=== PATIENT | male | born 1970 | race African-American/Black ===

== ENCOUNTER 2016-10-14 20:54 | Emergency (ER) | payer MEDICARE ==
[2016-10-14 21:30] VITALS: BP 161/88; PULSE 94; TEMP 98.8; BMI 66.5
[2016-10-14] MEDS ORDERED: morphine CARPU-JECT 4 MG/1 ML DISP.SYRIN IVPUSH ONE (23:22)
[2016-10-14] MEDS ORDERED: ONDANSETRON 4 MG/2 ML VIAL IVPB ONE (23:22)
--- NOTE | 2016-10-14 23:22 | PDOC ---
History of Present Illness - General Chief Complaint: Pain Stated Complaint: PAIN Time Seen by Provider: 10/14/16 23:10 - History of Present Illness Initial Comments: 10/15/16 01:04 Patient is a 45-year-old male past medical history of morbid obesity, HTN, HLD, COPD, IDDM, who presents to the emergency department today complaining of abdominal pain. Patient states that around 6 PM he experienced sharp pain in his groin that wraps around to his back. He rates the pain a 10 out of 10. Nothing makes the pain better or worse. Has not taken any pain medication. Admits to nausea but denies vomiting, diarrhea and constipation. Denies chest pain, shortness of breath, cough, fever, chills, dysuria, hematuria, frequency and urgency. Past History - Travel Traveled outside of the country in the last 30 days: No Close contact w/someone who was outside of country & ill: No - Past Medical History Allergies/Adverse Reactions: Allergies Allergy/AdvReac Type Severity Reaction Status Date / Time No Known Allergies Allergy Verified 10/14/16 21:30 Home Medications: Ambulatory Orders Aspirin [ASA -] 81 mg PO DAILY #30 tab.chew 12/19/13 Metformin HCl [Metformin HCl ER] 1,000 mg PO BID #60 tab.er.24 12/19/13 Ascorbate Calcium [Vitamin C] 500 mg PO BID 06/09/14 Ferrous Sulfate [Feosol] 325 mg PO TID 06/09/14 Furosemide [Lasix -] 60 mg PO DAILY 06/09/14 Gabapentin 300 mg PO TID 06/09/14 Insulin Lispro Protamin/Lispro [Humalog Mix 75-25 Kwikpen] 55 unit SQ AM Insulin NPL/Insulin Lispro [Humalog Mix 75-25 Vial] 25 unit SQ HS 06/09/14 Omeprazole [Prilosec (RX)] 20 mg PO DAILY 06/09/14 Rosuvastatin Calcium [Crestor] 5 mg PO DAILY 06/09/14 Acetaminophen [Tylenol .Regular Strength -] 650 mg PO Q4H PRN #0 tablet Budesonide/Formeterol Fumarate [SYMBICORT 160/4.5mcg -] 1 puff IH BID inhaler 05/22/15 Doxycycline Hyclate [Vibramycin -] 100 mg PO BID@1000,1800 capsule 05/22/15 Enoxaparin [Lovenox -] 40 mg SQ DAILY disp.syrin 05/22/15 Guaifenesin Dm [Robitussin Dm -] 10 ml PO Q4H PRN #0 cup 05/22/15 Hydrochlorothiazide [Hctz -] 25 mg PO DAILY #0 tablet 05/22/15 Nifedipine ER [Procardia XL -] 60 mg PO DAILY tab.er.24 05/22/15 Nifedipine ER [Procardia XL -] 90 mg PO DAILY tab.er.24 05/22/15 Prednisone [Deltasone -] 40 mg PO DAILY tablet 05/22/15 Tiotropium Pryor [Spiriva] 1 puff IH DAILY inh 05/22/15 Valsartan [Diovan] 320 mg PO DAILY #0 tablet 05/22/15 Ibuprofen 800 mg PO TID #30 tablet 12/20/15 Methocarbamol [Robaxin -] 750 mg PO BID #20 tablet 12/20/15 Oxycodone HCl/Acetaminophen [Percocet 5-325 mg Tablet] 1 - 2 tab PO Q6H #20 tablet MDD 4 12/20/15 Ibuprofen 800 mg PO TID #20 tablet 10/15/16 Ondansetron [Zofran -] 4 mg PO BID PRN #10 tablet 10/15/16 Oxycodone HCl/Acetaminophen [Percocet 10-325 mg Tablet] 1 each PO Q6H PRN #12 tablet MDD 4 10/15/16 Sulfamethoxazole/Trimethoprim [Bactrim Ds -] 1 tab PO BID #14 tablet 10/15/16 Tamsulosin HCl [Flomax -] 0.4 mg PO DAILY #5 capsule 10/15/16 Anemia: Yes Asthma: Yes Cancer: No Cardiac Disorders: Yes CVA: No COPD: Yes CHF: Yes Dementia: No Diabetes: Yes GI Disorders: Yes (OBESITY) Disorders: No HTN: Yes Hypercholesterolemia: Yes Liver Disease: No Suicide Attempt (Hx): No Seizures: No Thyroid Disease: No - Surgical History Abdominal Surgery: No Appendectomy: No Cardiac Surgery: No Cholecystectomy: No Lung Surgery: No Neurologic Surgery: No Orthopedic Surgery: Yes (bilateral knee arthroscopy) - Psycho/Social/Smoking Cessation Hx Anxiety: No Suicidal Ideation: No Smoking Status: No Smoking History: Never smoked Have you smoked in the past 12 months: No Number of Cigarettes Smoked Daily: 0 If you are a former smoker, when did you quit?: 1998 Information on smoking cessation initiated: No Hx Alcohol Use: No Drug/Substance Use Hx: No Substance Use Type: None Hx Substance Use Treatment: No Review of Systems - Review of Systems Able to Perform ROS?: Yes Comments:: 10/15/16 01:04 CONSTITUTIONAL: Absent: fever, chills, diaphoresis, generalized weakness, malaise, loss of appetite HEENT: Absent: rhinorrhea, nasal congestion, throat pain, throat swelling, difficulty swallowing, mouth swelling, ear pain, eye pain, visual Changes CARDIOVASCULAR: Absent: chest pain, loss of consciousness, palpitations, irregular heart rate, peripheral edema RESPIRATORY: Absent: cough, shortness of breath, dyspnea with exertion, orthopnea, wheezing, stridor, hemoptysis GASTROINTESTINAL: Absent: abdominal pain, abdominal distension, nausea, vomiting, diarrhea, constipation, melena, hematochezia GENITOURINARY: L flank pain that radiates to the groin. Absent: dysuria, frequency, urgency, hesitancy, hematuria, genital pain MUSCULOSKELETAL: Absent: myalgia, arthralgia, joint swelling SKIN: Absent: rash, itching, pallor HEMATOLOGIC/IMMUNOLOGIC: Absent: easy bleeding, easy bruising, lymphadenopathy, frequent infections ENDOCRINE: Absent: unexplained weight gain, unexplained weight loss, heat intolerance, cold intolerance NEUROLOGIC: Absent: headache, focal weakness or paresthesias, dizziness, unsteady gait, seizure, mental status changes, bladder or bowel incontinence PSYCHIATRIC: Absent: anxiety, depression, suicidal or homicidal ideation, hallucinations. Is the patient limited Serbian proficient: No *Physical Exam - Vital Signs Last Vital Signs Temp Pulse Resp BP Pulse Ox 98.8 F 94 H 17 161/88 90 L 10/14/16 21:27 10/14/16 21:27 10/14/16 21:27 10/14/16 21:27 10/14/16 21:27 - Physical Exam Comments: 10/15/16 01:04 GENERAL: Well developed, well nourished, morbidly obese. Awake and alert. Mild distress d /t pain. HEENT: Normocephalic, atraumatic. PERRLA, EOMI. No conjunctival pallor. Sclera are non- icteric. Moist mucous membranes. Oropharynx is clear. NECK: Supple. Full ROM. No JVD. Carotid pulses 2+ and symmetric, without bruits. No thyromegaly. No lymphadenopathy. CARDIOVASCULAR: Distant heart sounds. Regular rate and rhythm. No murmurs, rubs, or gallops. Distal pulses are 2+ and symmetric. PULMONARY: Distant lung sounds. No evidence of respiratory distress. Lungs clear to auscultation bilaterally. No wheezing, rales or rhonchi. ABDOMINAL: Soft. Non-tender. Non-distended. No rebound or guarding. No organomegaly. Normoactive bowel sounds. MUSCULOSKELETAL (+) CVA tenderness on the L. Normal range of motion at all joints. No bony deformities or tenderness. EXTREMITIES: No cyanosis. No clubbing. No edema. No calf tenderness. SKIN: Warm and dry. Normal capillary refill. No rashes. No jaundice. NEUROLOGICAL: Alert, awake, appropriate. Cranial nerves 2-12 intact. No deficits to light touch and temperature in face, upper extremities and lower extremities. No motor deficits in the in face, upper extremities and lower extremities. Normoreflexic in the upper and lower extremities. Normal speech. Toes are down- going bilaterally. Gait is normal without ataxia. PSYCHIATRIC: Cooperative. Good eye contact. Appropriate mood and affect. ED Treatment Course - LABORATORY CBC & Chemistry Diagram: 10/15/16 00:53 10/15/16 02:34 Medical Decision Making - Medical Decision Making 10/15/16 01:45 Patient is a 45-year-old male past medical history of morbid obesity, HTN, HLD, COPD, IDDM, who presents to the emergency department today complaining of abdominal pain. Given physical exam and presenting symptoms most likely kidney stones. Possible diverticulitis. 1. CBC, CMP, PT/INR, Trop UA, UC 2. Spiral CT abdomen 3. Morphine and zofran for pain 4. re-evaluate 10/15/16 02:13 CAT scan calls to state that patient is to large to fit in the CAT scan machine. We will switch order to kidney ultrasound to rule out stones, hydronephrosis. 10/15/16 03:29 Ultrasound shows normal kidneys with no hydronephrosis or stones noted. UA shows hylain casts, 2+ protein, 1+ blood. Possible kidney stone. 10/15/16 03:58 Pt. reports feeling much better after the morphine and zofran. Give relief of symptoms and UA findings will clinically diagnose kidney stone at this time. Pt sent home with PO pain control, antibiotics to prevent infection, and flomax. Pt. understands all discharge instructions and all questions were answered at this time. Pt. understands that he is to f/u with his PCP and urology. *DC/Admit/Observation/Transfer Diagnosis at time of Disposition: Kidney stone, Morbid obesity Diabetes Qualifiers: Diabetes mellitus type: type 2 Diabetes mellitus complication status: with hyperglycemia Diabetes mellitus intermodal dispatcher insulin use: with usp use Qualified Code(s): E11.65 - Type 2 diabetes mellitus with hyperglycemia Hypertension Qualifiers: Hypertension type: unspecified Qualified Code(s): I10 - Essential (primary) hypertension - Discharge Dispostion Disposition: HOME Condition at time of disposition: Improved Admit: No - Prescriptions Prescriptions: Sulfamethoxazole/Trimethoprim [Bactrim Ds -] 1 tab PO BID #14 tablet Tamsulosin HCl [Flomax -] 0.4 mg PO DAILY #5 capsule Ibuprofen 800 mg PO TID #20 tablet Oxycodone HCl/Acetaminophen [Percocet 10-325 mg Tablet] 1 each PO Q6H PRN #12 tablet MDD 4 PRN Reason: Severe Pain Ondansetron [Zofran -] 4 mg PO BID PRN #10 tablet PRN Reason: Nausea - Referrals Referrals: Sukumar Ortiz MD [Primary Care Provider] - Ori Locke MD [Staff Physician] - - Patient Instructions Printed Discharge Instructions: DI for Kidney Stones Additional Instructions: Your ultrasound was normal today. Given your symptoms and amount of pain you are in, it is most likely that you have a kidney stone. Your prescribed antibiotics as prophylaxis for UTI.. Take the prescription as prescribed and take the entire dose even if you feel better. Your prescribed Percocet as needed for severe pain and zofran as needed for nausea.. You were also prescribed ibuprofen and tamsulosin. Take these medications as prescribed. Drink plenty of fluids and get plenty of rest. Follow up with your primary care doctor and Dr. Locke (Urology). Return to the ED if you have worsening pain, fevers, chills, nauesa, vomiting or any changes in your symptoms.
[2016-10-14] MEDS ORDERED: morphine CARPU-JECT 4 MG/1 ML DISP.SYRIN ONE (23:46)
[2016-10-14] MEDS ORDERED: ONDANSETRON 4 MG/2 ML VIAL ONE (23:47)
[2016-10-15] MEDS ORDERED: morphine CARPU-JECT 2 MG/1 ML DISP.SYRIN IM ONE ×3 (00:27→03:35)
[2016-10-15] MEDS ORDERED: morphine CARPU-JECT 4 MG/1 ML DISP.SYRIN ONE ×2 (00:36→04:17)
[2016-10-15] MEDS ORDERED: ONDANSETRON *ODT* 4 MG TABLET ONE (00:44)
[2016-10-15] MEDS ORDERED: ONDANSETRON *ODT* 4 MG TABLET SL ONE (00:45)
[2016-10-15 00:50] LABS: INR 0.97 (0.82-1.09); PROTHROMBIN TIME (PATIENT) 10.7 SEC (9.98-11.88)
[2016-10-15 01:01] LABS: BASOPHIL 0.2 % (0-2.0); EOSINOPHIL 0.9 % (0-4.5); MCH 28.4 pg (25.7-33.7); MCHC 31.7 g/dl (32.0-35.9); MEAN CELL VOLUME 89.6 fl (80-96); MEAN PLT VOLUME 8.7 fl (7.5-11.1); PLATELET COUNT 283 K/MM3 (134-434); RDW 14.2 % (11.9-15.9); WHITE BLOOD COUNT 10.7 K/mm3 (4.0-10.0)
[2016-10-15 01:14] LABS: URINE APPEARANCE CLEAR; URINE BILIRUBIN NEGATIVE (NEGATIVE); URINE BLOOD 1+ (NEGATIVE); URINE COLOR YELLOW; URINE GLUCOSE (UA) 1+ (NEGATIVE); URINE KETONE NEGATIVE (NEGATIVE); URINE LEUK ESTERASE NEGATIVE (NEGATIVE); URINE NITRITE NEGATIVE (NEGATIVE); URINE UROBILINOGEN 4.0 E.U/dl mg/dL (0.2-1.0)
[2016-10-15 01:16] LABS: URINE PROTEIN 2+ (NEGATIVE)
[2016-10-15 01:21] LABS: URINE BACTERIA RARE /hpf (NONE SEEN); URINE HYALINE CAST 3 /lpf; URINE MUCUS RARE; URINE RBC 5 /hpf (0-3); URINE WBC 1 /hpf (3-5)
--- NOTE | 2016-10-15 01:46 | PDOC ---
*Physical Exam - Vital Signs Last Vital Signs Temp Pulse Resp BP Pulse Ox 98.8 F 94 H 17 161/88 97 10/14/16 21:27 10/14/16 21:27 10/14/16 21:27 10/14/16 21:27 10/15/16 01:00 ED Treatment Course - LABORATORY CBC & Chemistry Diagram: 10/15/16 00:53 10/15/16 02:34 - ADDITIONAL ORDERS Additional order review: Laboratory Results 10/15/16 10/15/16 10/15/16 01:04 00:53 00:20 INR 0.97 Sodium Cancelled Potassium Cancelled Chloride Cancelled Carbon Dioxide Cancelled Anion Gap Cancelled BUN Cancelled Creatinine Cancelled Creat Clearance w eGFR Cancelled Random Glucose Cancelled Calcium Cancelled Total Bilirubin Cancelled AST Cancelled ALT Cancelled Alkaline Phosphatase Cancelled Total Protein Cancelled Albumin Cancelled Lipase Cancelled Urine Color Yellow Urine Appearance Clear Urine pH 5.0 Urine Protein 2+ H Urine Glucose (UA) 1+ H Urine Ketones Negative Urine Blood 1+ H Urine Nitrite Negative Urine Bilirubin Negative Urine Urobilinogen 4.0 e.u/dl Ur Leukocyte Esterase Negative Urine RBC 5 Urine WBC 1 Ur Epithelial Cells Rare Urine Bacteria Rare Hyaline Casts 3 Urine Mucus Rare 10/15/16 00:53 RBC 4.70 MCV 89.6 MCHC 31.7 L RDW 14.2 D MPV 8.7 Neutrophils % 82.0 Lymphocytes % 11.7 D Monocytes % 5.2 D Eosinophils % 0.9 D Basophils % 0.2 - Medications Given in the ED: ED Medications Discontinued Medications Generic Name Dose Route Start Last Admin Trade Name Chris PRN Reason Stop Dose Admin Morphine Sulfate 6 mg 10/14/16 23:22 10/15/16 00:43 Morphine Injection - IVPUSH 10/14/16 23:23 Not Given ONCE ONE Morphine Sulfate 8 mg 10/15/16 00:28 10/15/16 00:30 Morphine Injection - IM 10/15/16 00:29 8 mg ONCE ONE Administration Ondansetron HCl 4 mg 10/14/16 23:22 10/15/16 01:09 Zofran Injection IVPB 10/14/16 23:23 Not Given ONCE ONE Ondansetron HCl 4 mg 10/15/16 00:45 10/15/16 00:45 Zofran Odt - SL 10/15/16 00:46 4 mg ONCE ONE Administration Medical Decision Making - Medical Decision Making 10/15/16 01:44 agree with care from RACHAEL Betts Pt will be treated for kidney stone as pt has hylaine casts in the UA and it was difficult to visualize a stone due to pt habitus. Pt does have h/o DM *DC/Admit/Observation/Transfer Diagnosis at time of Disposition: Kidney stone, Morbid obesity, Diabetes, Hypertension - Discharge Dispostion Disposition: HOME Condition at time of disposition: Improved - Prescriptions Prescriptions: Sulfamethoxazole/Trimethoprim [Bactrim Ds -] 1 tab PO BID #14 tablet Tamsulosin HCl [Flomax -] 0.4 mg PO DAILY #5 capsule Ibuprofen 800 mg PO TID #20 tablet Oxycodone HCl/Acetaminophen [Percocet 10-325 mg Tablet] 1 each PO Q6H PRN #12 tablet MDD 4 PRN Reason: Severe Pain Ondansetron [Zofran -] 4 mg PO BID PRN #10 tablet PRN Reason: Nausea - Referrals Referrals: Ori Locke MD [Staff Physician] - Sukumar Ortiz MD [Primary Care Provider] - - Patient Instructions Printed Discharge Instructions: DI for Kidney Stones Additional Instructions: Your ultrasound was normal today. Given your symptoms and amount of pain you are in, it is most likely that you have a kidney stone. Your prescribed antibiotics as prophylaxis for UTI.. Take the prescription as prescribed and take the entire dose even if you feel better. Your prescribed Percocet as needed for severe pain and zofran as needed for nausea.. You were also prescribed ibuprofen and tamsulosin. Take these medications as prescribed. Drink plenty of fluids and get plenty of rest. Follow up with your primary care doctor and Dr. Locke (Urology). Return to the ED if you have worsening pain, fevers, chills, nauesa, vomiting or any changes in your symptoms.
[2016-10-15 03:13] LABS: ALBUMIN 3.6 g/dl (3.4-5.0); ANION GAP 8 (8-16); BILIRUBIN,TOTAL 0.7 mg/dL (0.2-1.0); CO2 30 mmol/L (21-32); GLUCOSE,RANDOM 167 mg/dL (74-106); SGPT/ALT 17 U/L (12-78); TOT PROT 7.4 g/dl (6.4-8.2)
[2016-10-15 03:14] LABS: ALK PHOS 113 U/L (45-117)
[2016-10-15 03:22] LABS: SGOT/AST 18 U/L (15-37)
== END 2016-10-15 04:24 | disposition home or self-care (01) ==
LOC: JER 20:54
PROC: 3E023NZ Introduction of Analgesics, Hypnotics, Sedatives into Muscle, Percutaneous Approach (ICD-10-PCS; principal; 2016-10-14)
PROC: 3E023NZ Introduction of Analgesics, Hypnotics, Sedatives into Muscle, Percutaneous Approach (ICD-10-PCS; 2016-10-14)
DX: N20.0 Calculus of kidney (principal); E11.65 Type 2 diabetes mellitus with hyperglycemia; Z79.4 Long term (current) use of insulin; I10 Essential (primary) hypertension; D64.9 Anemia, unspecified; J45.909 Unspecified asthma, uncomplicated; J44.9 Chronic obstructive pulmonary disease, unspecified; I50.9 Heart failure, unspecified; E78.00 Pure hypercholesterolemia, unspecified; E66.01 Morbid (severe) obesity due to excess calories; Z68.44 Body mass index [BMI] 60.0-69.9, adult
CPT/HCPCS: 36415; 76775-TC; 80053; 81003; 81015; 85025; 85610; 96372; 99282-25

== ENCOUNTER 2016-10-17 21:22 | Inpatient (IN) | payer MEDICARE, OTHER ==
[2016-10-17] MEDS ORDERED: SODIUM CHLORIDE 0.9% 500 ML INFUS.BAG IV ONE (21:41)
--- NOTE | 2016-10-17 21:41 | PDOC ---
History of Present Illness - General History Source: Patient, EMS Exam Limitations: No Limitations - History of Present Illness Initial Comments: 10/17/16 22:11 The patient is a 45 year old obese male with a significant past medical history of diabetes, HTN, HLD and COPD who presents to the ED, via EMS, s/p loss of consciousness earlier today. The patient reports he was at home taking care of his nieces when he stood up from his chair and had a loss of consciousness. Patient does not fully recall the episode. He also reports multiple episodes of nonbilious vomiting throughout the day. EMS states patients blood sugar was 216 en route. Patient was recently seen in the ED on 10/14/16 and treated for a kidney stone. Denies fevers. Denies chest pain or shortness of breath. Denies abdominal pain or diarrhea. Denies headache. Denies focal numbness, weakness, or tingling. Denies any other symptoms. <Kathie Rodriguez - Last Filed: 10/17/16 23:29> <Keli Crespo - Last Filed: 10/18/16 01:53> - General Chief Complaint: Syncope/Near Syncope Stated Complaint: SYNCOPE,ALTERED MENTAL STATUS Time Seen by Provider: 10/17/16 21:37 Past History <Kathie Rodriguez - Last Filed: 10/17/16 23:29> - Past Medical History Anemia: Yes Asthma: Yes Cancer: No Cardiac Disorders: Yes CVA: No COPD: Yes CHF: Yes Dementia: No Diabetes: Yes GI Disorders: Yes (OBESITY) Disorders: No HTN: Yes Hypercholesterolemia: Yes Liver Disease: No Suicide Attempt (Hx): No Seizures: No Thyroid Disease: No - Surgical History Abdominal Surgery: No Appendectomy: No Cardiac Surgery: No Cholecystectomy: No Lung Surgery: No Neurologic Surgery: No Orthopedic Surgery: Yes (bilateral knee arthroscopy) - Immunization History Immunization Up to Date: Yes - Psycho/Social/Smoking Cessation Hx Anxiety: No Suicidal Ideation: No Smoking Status: No Smoking History: Never smoked Have you smoked in the past 12 months: No Number of Cigarettes Smoked Daily: 0 If you are a former smoker, when did you quit?: 1998 Information on smoking cessation initiated: No Hx Alcohol Use: No Drug/Substance Use Hx: No Substance Use Type: None Hx Substance Use Treatment: No <Keli Crespo - Last Filed: 10/18/16 01:53> - Past Medical History Allergies/Adverse Reactions: Allergies Allergy/AdvReac Type Severity Reaction Status Date / Time No Known Allergies Allergy Verified 10/17/16 21:38 Home Medications: Ambulatory Orders Aspirin [ASA -] 81 mg PO DAILY #30 tab.chew 12/19/13 Metformin HCl [Metformin HCl ER] 1,000 mg PO BID #60 tab.er.24 12/19/13 Ascorbate Calcium [Vitamin C] 500 mg PO BID 06/09/14 Ferrous Sulfate [Feosol] 325 mg PO TID 06/09/14 Furosemide [Lasix -] 60 mg PO DAILY 06/09/14 Gabapentin 300 mg PO TID 06/09/14 Insulin Lispro Protamin/Lispro [Humalog Mix 75-25 Kwikpen] 55 unit SQ AM Insulin NPL/Insulin Lispro [Humalog Mix 75-25 Vial] 25 unit SQ HS 06/09/14 Omeprazole [Prilosec (RX)] 20 mg PO DAILY 06/09/14 Rosuvastatin Calcium [Crestor] 5 mg PO DAILY 06/09/14 Acetaminophen [Tylenol .Regular Strength -] 650 mg PO Q4H PRN #0 tablet Budesonide/Formeterol Fumarate [SYMBICORT 160/4.5mcg -] 1 puff IH BID inhaler 05/22/15 Doxycycline Hyclate [Vibramycin -] 100 mg PO BID@1000,1800 capsule 05/22/15 Enoxaparin [Lovenox -] 40 mg SQ DAILY disp.syrin 05/22/15 Guaifenesin Dm [Robitussin Dm -] 10 ml PO Q4H PRN #0 cup 05/22/15 Hydrochlorothiazide [Hctz -] 25 mg PO DAILY #0 tablet 05/22/15 Nifedipine ER [Procardia XL -] 60 mg PO DAILY tab.er.24 05/22/15 Nifedipine ER [Procardia XL -] 90 mg PO DAILY tab.er.24 05/22/15 Prednisone [Deltasone -] 40 mg PO DAILY tablet 05/22/15 Tiotropium [place] [Spiriva] 1 puff IH DAILY inh 05/22/15 Valsartan [Diovan] 320 mg PO DAILY #0 tablet 05/22/15 Ibuprofen 800 mg PO TID #30 tablet 12/20/15 Methocarbamol [Robaxin -] 750 mg PO BID #20 tablet 12/20/15 Oxycodone HCl/Acetaminophen [Percocet 5-325 mg Tablet] 1 - 2 tab PO Q6H #20 tablet MDD 4 12/20/15 Ibuprofen 800 mg PO TID #20 tablet 10/15/16 Ondansetron [Zofran -] 4 mg PO BID PRN #10 tablet 10/15/16 Oxycodone HCl/Acetaminophen [Percocet 10-325 mg Tablet] 1 each PO Q6H PRN #12 tablet MDD 4 10/15/16 Sulfamethoxazole/Trimethoprim [Bactrim Ds -] 1 tab PO BID #14 tablet 10/15/16 Tamsulosin HCl [Flomax -] 0.4 mg PO DAILY #5 capsule 10/15/16 Review of Systems - Review of Systems Able to Perform ROS?: Yes Comments:: 10/17/16 22:12 CONSTITUTIONAL: Absent: fever, chills, diaphoresis, generalized weakness, malaise, loss of appetite HEENT: Absent: rhinorrhea, nasal congestion, throat pain, throat swelling, difficulty swallowing, mouth swelling, ear pain, eye pain, visual Changes CARDIOVASCULAR: Absent: chest pain, syncope, palpitations, irregular heart rate, lightheadedness , peripheral edema RESPIRATORY: Absent: cough, shortness of breath, dyspnea with exertion, orthopnea, wheezing, stridor, hemoptysis GASTROINTESTINAL: + vomiting Absent: abdominal pain, abdominal distension, diarrhea, constipation, melena, hematochezia GENITOURINARY: Absent: dysuria, frequency, urgency, hesitancy, hematuria, flank pain, genital pain MUSCULOSKELETAL: Absent: myalgia, arthralgia, joint swelling SKIN: Absent: rash, itching, pallor HEMATOLOGIC/IMMUNOLOGIC: Absent: easy bleeding, easy bruising, lymphadenopathy, frequent infections ENDOCRINE: Absent: unexplained weight gain, unexplained weight loss, heat intolerance, cold intolerance NEUROLOGIC: + loss of consciousness Absent: headache, focal weakness or paresthesias, dizziness, unsteady gait, seizure, mental status changes, bladder or bowel incontinence PSYCHIATRIC: Absent: anxiety, depression, suicidal or homicidal ideation, hallucinations. All Other Systems: Reviewed and Negative <Kathie Rodriguez - Last Filed: 10/17/16 23:29> *Physical Exam - Vital Signs Last Vital Signs Temp Pulse Resp BP Pulse Ox 98.9 F 114 H 19 147/101 98 10/17/16 21:35 10/17/16 21:35 10/17/16 21:35 10/17/16 21:35 10/17/16 21:35 - Physical Exam Comments: 10/17/16 22:13 GENERAL:+ cannot move secondary to morbid obesity Awake and alert. No acute distress. HEENT: Normocephalic, atraumatic. PERRLA, EOMI. No conjunctival pallor. Sclera are non- icteric. Moist mucous membranes. Oropharynx is clear. NECK: Supple. Full ROM. No JVD. Carotid pulses 2+ and symmetric, without bruits. No thyromegaly. NCo lymphadenopathy. CARDIOVASCULAR: Regular rate and rhythm. No murmurs, rubs, or gallops. Distal pulses are 2+ and symmetric. PULMONARY: No evidence of respiratory distress. Lungs clear to auscultation bilaterally. No wheezing, rales or rhonchi. ABDOMINAL: Soft. Non-tender. Non-distended. No rebound or guarding. No organomegaly. Normoactive bowel sounds. MUSCULOSKELETAL Normal range of motion at all joints. No bony deformities or tenderness. No CVA tenderness. EXTREMITIES: No cyanosis. No clubbing. No edema. No calf tenderness. SKIN: Warm and dry. Normal capillary refill. No rashes. No jaundice. NEUROLOGICAL: Alert, awake, appropriate. Cranial nerves 2-12 intact. No deficits to light touch and temperature in face, upper extremities and lower extremities. No motor deficits in the in face, upper extremities and lower extremities. Normoreflexic in the upper and lower extremities. Normal speech. Toes are down- going bilaterally. PSYCHIATRIC: Cooperative. Good eye contact. Appropriate mood and affect. <Kathie Rodriguez - Last Filed: 10/17/16 23:29> - Vital Signs Last Vital Signs Temp Pulse Resp BP Pulse Ox 98.9 F 114 H 19 147/101 98 10/17/16 21:35 10/17/16 21:35 10/17/16 21:35 10/17/16 21:35 10/17/16 21:35 <Keli Crespo - Last Filed: 10/18/16 01:53> ED Treatment Course - LABORATORY CBC & Chemistry Diagram: 10/17/16 21:34 10/17/16 21:34 - ADDITIONAL ORDERS Additional order review: Laboratory Results 10/17/16 10/17/16 10/17/16 21:40 21:34 21:34 INR 0.94 Sodium 132 L Potassium 5.6 H Chloride 97 L Carbon Dioxide 27 Anion Gap 8 BUN 61 H D Creatinine 5.8 H D Creat Clearance w eGFR 10.53 POC Glucometer [phone] Random Glucose 280 H D Calcium 8.1 L Total Bilirubin 0.4 D AST 18 ALT 19 Alkaline Phosphatase 111 Creatine Kinase 899 H Troponin I 0.12 H D Total Protein 7.4 Albumin 3.7 10/17/16 21:40 POC Glucometer [phone] - Medications Given in the ED: ED Medications Discontinued Medications Generic Name Dose Route Start Last Admin Trade Name Freq PRN Reason Stop Dose Admin Sodium Chloride 1,000 ml 10/17/16 21:41 10/17/16 21:56 Normal Saline - IV 10/17/16 21:42 1,000 ml ONCE ONE Administration <Kathie Rodriguez - Last Filed: 10/17/16 23:29> - LABORATORY CBC & Chemistry Diagram: 10/17/16 21:34 10/17/16 21:34 - RADIOLOGY Radiology Studies Ordered: Category Date Time Status CHEST X-RAY PORTABLE* [RAD] Stat Radiology 10/17/16 21:33 Ordered <Keli Crespo - Last Filed: 10/18/16 01:53> Medical Decision Making - Medical Decision Making 10/17/16 23:[address] Nixon at 22:22. Case discussed with Dr. Martin at 22:59. <Kathie Rodriguez - Last Filed: 10/17/16 23:29> - Critical Care Time Total Critical Care Time (minutes): 90 Critical Care Statement: The care of this patient involved high complexity decision making to prevent further life threatening deterioration of the patient 's condition and/or to evalute & treat vital organ system(s) failure or risk of failure. - Medical Decision Making 10/17/16 22:30 Weight limit for the CT table is 250 lbs 10/17/16 22:36 Pt with acute kidney failure; he will require renal sono, as he cannot get CT scan. Ibrahim catheter is being placed. I stopped IVF, as he is tachycardic and HTN. I ordered glucose and reg insulin for hyperkalemia as well as kayexalate. PMD Jacky Ortiz's associate Hussain is aware of the patient. She is requesting ICU admission; Also requesting Lizbeth Ortiz Urology consult; I paged him and Mario, Renal consult; I paged him Troponin elevated -but likely due to elevated BUN/Cr; Pt has normal unchanged EKG pattern. No complaint of CP. 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 Findings: The right kidney has a normal appearance and echotexture and measures 10.3 cm in length. No parenchymal mass, shadowing calculus or hydronephrosis is seen. The left kidney has a normal appearance and echotexture measures 10.6 cm in length. No parenchymal mass, shadowing calculus or hydronephrosis is seen. Impression: Normal appearance of both kidneys. No evidence of urinary tract obstruction. THIS DOCUMENT HAS BEEN ELECTRONICALLY SIGNED <Keli Crespo - Last Filed: 10/18/16 01:53> *DC/Admit/Observation/Transfer - Attestations Scribe Attestion: 10/17/16 22:13 Documentation prepared by Kathie Rodriguez, acting as medical director/head team physician for Keli Crespo MD <Kathie Rodriguez - Last Filed: 10/17/16 23:29> - Discharge Dispostion Admit: Yes <Keli Crespo - Last Filed: 10/18/16 01:53> Diagnosis at time of Disposition: Syncope, Kidney failure, Morbid obesity, Hyperkalemia, Tachycardia, UTI ( urinary tract infection), Diabetes, Hyperlipidemia - Discharge Dispostion Condition at time of disposition: Guarded - Referrals
[2016-10-17 21:51] LABS: BASOPHIL 0.2 % (0-2.0); EOSINOPHIL 0.1 % (0-4.5); MCH 28.6 pg (25.7-33.7); MCHC 31.2 g/dl (32.0-35.9); MEAN CELL VOLUME 91.5 fl (80-96); NEUTROPHILS 89.1 % (42.8-82.8); PLATELET COUNT 233 K/MM3 (134-434); RDW 14.1 % (11.9-15.9); WHITE BLOOD COUNT 10.3 K/mm3 (4.0-10.0)
[2016-10-17 21:56] LABS: INR 0.94 (0.82-1.09); PROTHROMBIN TIME (PATIENT) 10.3 SEC (9.98-11.88)
[2016-10-17 22:06] LABS: ALBUMIN 3.7 g/dl (3.4-5.0); ANION GAP 8 (8-16); BILIRUBIN,TOTAL 0.4 mg/dL (0.2-1.0); CALCIUM 8.1 mg/dL (8.5-10.1); CO2 27 mmol/L (21-32); CREATININE 5.8 mg/dL (0.7-1.3); GLUCOSE,RANDOM 280 mg/dL (74-106); SGOT/AST 18 U/L (15-37); SGPT/ALT 19 U/L (12-78); TOT PROT 7.4 g/dl (6.4-8.2)
[2016-10-17 22:09] LABS: ALK PHOS 111 U/L (45-117); CPK 899 IU/L (39-308); TROPONIN I 0.12 ng/ml (0.00-0.05)
[2016-10-17] MEDS ORDERED: DEXTROSE 50%-WATER - 25 GM/50 ML VIAL IVPUSH ONE (22:12)
[2016-10-17] MEDS ORDERED: INSULIN REGULAR HUMAN 100 UNITS/ML *VIAL IVPUSH ONE (22:13)
[2016-10-17] MEDS ORDERED: SODIUM POLYSTYRENE SULFONATE 15 GM/60 ML BOTTLE PO ONE (22:13)
[2016-10-17] MEDS ORDERED: DEXTROSE 50%-WATER 50 ML DISP.SYRIN ONE (22:32)
[2016-10-17] MEDS ORDERED: SODIUM POLYSTYRENE SULFONATE 15 GM/60 ML BOTTLE ONE (22:33)
[2016-10-17 22:41] LABS: ACETONE SERUM NEGATIVE (NEGATIVE)
[2016-10-17] MEDS ORDERED: VALSARTAN 80 MG TABLET (UD) PO ONE (23:04)
[2016-10-18] MEDS ORDERED: VALSARTAN 80 MG TABLET (UD) ONE (00:43)
--- NOTE | 2016-10-18 01:42 | CONSULT ---
Consult Consult Specialty:: Pulm/CCM Reason for Consultation:: Syncope; Acute renal failure - History of Present Illness Chief Complaint: Nausea and vomiting History of Present Illness: 45yom with PMHx of HTN, DMII, CHF, Pulm HTN and morbid obesity who was BIBEMS from home after he acutely syncopized and became unresponsive. Of note pt recently admitted for lt LQ pain and was treated for suspected renal calculus. Pt stated that he was having n/v prior to him LOC but denied JEAN, dizzines, SOB, chest pain, diarrhea. In the ED he was alert and oriented 98.9, HR 114, BP147/101, RR19 o2 sat 98% on NC. he reportedly vomited x2. labs notable for WBC 10.3,N 89%, K 5.6, BUN/creat 61/5.8, CK 899, trop 0.12. Utox neg. Given meds for hyperkalemia. Renal US done re c/f for obstructive RF. Preliminary report notes no hydronephrosis or obstruction. He was given 1L of NS and transferred to ICU for management. In the ICU he was noted to be tremulous and on 100%NRB. t99.6F, BP 150/80, HR 99 , O2 sat 100%. - History Source History Provided By: Patient, Medical Record Limitations to Obtaining History: Other (Rigoring) - Past Medical History Cardio/Vascular: Yes: HTN, Hyperlipdemia, Pulmonary Hypertension Pulmonary: Yes: Bronchitis, COPD Endocrine: Yes: Diabetes Mellitus - Past Surgical History Past Surgical History: Yes: Joint Replacement (b/l knees) - Alcohol/Substance Use Hx Alcohol Use: No History of Substance Use: reports: None - Smoking History Smoking history: Never smoked Have you smoked in the past 12 months: No Aproximately how many cigarettes per day: 0 If you are a former smoker, when did you quit?: 1998 Home Medications - Allergies Allergies/Adverse Reactions: Allergies Allergy/AdvReac Type Severity Reaction Status Date / Time No Known Allergies Allergy Verified 10/17/16 21:38 - Home Medications Home Medications: Ambulatory Orders Aspirin [ASA -] 81 mg PO DAILY #30 tab.chew 12/19/13 Metformin HCl [Metformin HCl ER] 1,000 mg PO BID #60 tab.er.24 12/19/13 Ascorbate Calcium [Vitamin C] 500 mg PO BID 06/09/14 Ferrous Sulfate [Feosol] 325 mg PO TID 06/09/14 Furosemide [Lasix -] 60 mg PO DAILY 06/09/14 Gabapentin 300 mg PO TID 06/09/14 Insulin Lispro Protamin/Lispro [Humalog Mix 75-25 Kwikpen] 55 unit SQ AM Insulin NPL/Insulin Lispro [Humalog Mix 75-25 Vial] 25 unit SQ HS 06/09/14 Omeprazole [Prilosec (RX)] 20 mg PO DAILY 06/09/14 Rosuvastatin Calcium [Crestor] 5 mg PO DAILY 06/09/14 Acetaminophen [Tylenol .Regular Strength -] 650 mg PO Q4H PRN #0 tablet Budesonide/Formeterol Fumarate [SYMBICORT 160/4.5mcg -] 1 puff IH BID inhaler 05/22/15 Doxycycline Hyclate [Vibramycin -] 100 mg PO BID@1000,1800 capsule 05/22/15 Enoxaparin [Lovenox -] 40 mg SQ DAILY disp.syrin 05/22/15 Guaifenesin Dm [Robitussin Dm -] 10 ml PO Q4H PRN #0 cup 05/22/15 Hydrochlorothiazide [Hctz -] 25 mg PO DAILY #0 tablet 05/22/15 Nifedipine ER [Procardia XL -] 60 mg PO DAILY tab.er.24 05/22/15 Nifedipine ER [Procardia XL -] 90 mg PO DAILY tab.er.24 05/22/15 Prednisone [Deltasone -] 40 mg PO DAILY tablet 05/22/15 Tiotropium [place] [Spiriva] 1 puff IH DAILY inh 05/22/15 Valsartan [Diovan] 320 mg PO DAILY #0 tablet 05/22/15 Ibuprofen 800 mg PO TID #30 tablet 12/20/15 Methocarbamol [Robaxin -] 750 mg PO BID #20 tablet 12/20/15 Oxycodone HCl/Acetaminophen [Percocet 5-325 mg Tablet] 1 - 2 tab PO Q6H #20 tablet MDD 4 12/20/15 Ibuprofen 800 mg PO TID #20 tablet 10/15/16 Ondansetron [Zofran -] 4 mg PO BID PRN #10 tablet 10/15/16 Oxycodone HCl/Acetaminophen [Percocet 10-325 mg Tablet] 1 each PO Q6H PRN #12 tablet MDD 4 10/15/16 Sulfamethoxazole/Trimethoprim [Bactrim Ds -] 1 tab PO BID #14 tablet 10/15/16 Tamsulosin HCl [Flomax -] 0.4 mg PO DAILY #5 capsule 10/15/16 Family Disease History - Family Disease History Family History: Unremarkable Review of Systems - Review of Systems Constitutional: reports: Other (rigoring) Eyes: reports: No Symptoms HENT: reports: No Symptoms Neck: reports: No Symptoms Cardiovascular: reports: No Symptoms Respiratory: reports: No Symptoms Gastrointestinal: reports: Abdominal Pain, Nausea, Vomiting Genitourinary: reports: No Symptoms Musculoskeletal: reports: No Symptoms Integumentary: reports: No Symptoms Neurological: reports: Syncope Hematology/Lymphatic: reports: No Symptoms Psychiatric: reports: No Symptoms Physical Exam Vital Signs: Vital Signs Temperature 99.5 F 10/18/16 01:28 Pulse Rate 108 H 10/18/16 01:28 Respiratory Rate 30 H 10/18/16 01:28 Blood Pressure 157/78 10/18/16 01:28 O2 Sat by Pulse Oximetry (%) 99 10/18/16 00:53 Constitutional: Yes: Anxious, Obese, Other Eyes: Yes: WNL HENT: Yes: Atraumatic, Normocephalic Neck: Yes: WNL, Other (thick neck) Cardiovascular: Yes: Regular Rate and Rhythm, Tachycardia Respiratory: Yes: Regular, CTA Bilaterally, Diminished (bases) Gastrointestinal: Yes: Abdomen, Obese (non), Hypoactive Bowel Sounds, Other ( non tender) Renal/: Yes: Ibrahim Present Breast(s): Yes: WNL Musculoskeletal: Yes: WNL Extremities: Yes: Other Edema: Yes Edema: LUE: Trace, RUE: Trace, LLE: Trace, RLE: Trace Peripheral Pulses WNL: Yes Integumentary: Yes: Other (dry flaky) Neurological: Yes: Alert, Oriented ...Motor Strength: WNL Psychiatric: Yes: Alert, Oriented Labs: CBC,CMP WBC 10.3 K/mm3 (4.0-10.0) H 10/17/16 21:34 RBC 4.19 M/mm3 (4.00-5.60) 10/17/16 21:34 Hgb 12.0 GM/dL (11.7-16.9) D 10/17/16 21:34 Hct 38.3 % (35.4-49) 10/17/16 21:34 MCV 91.5 fl (80-96) 10/17/16 21:34 MCH 28.6 pg (25.7-33.7) 10/17/16 21:34 MCHC 31.2 g/dl (32.0-35.9) L 10/17/16 21:34 RDW 14.1 % (11.9-15.9) 10/17/16 21:34 Plt Count 233 K/MM3 (134-434) 10/17/16 21:34 MPV 9.0 fl (7.5-11.1) 10/17/16 21:34 Neutrophils % 89.1 % (42.8-82.8) H 10/17/16 21:34 Lymphocytes % 6.3 % (8-40) L D 10/17/16 21:34 Monocytes % 4.3 % (3.8-10.2) 10/17/16 21:34 Eosinophils % 0.1 % (0-4.5) D 10/17/16 21:34 Basophils % 0.2 % (0-2.0) 10/17/16 21:34 Sodium 132 mmol/L (136-145) L 10/17/16 21:34 Potassium 5.6 mmol/L (3.5-5.1) H 10/17/16 21:34 Chloride 97 mmol/L (98-107) L 10/17/16 21:34 Carbon Dioxide 27 mmol/L (21-32) 10/17/16 21:34 Anion Gap 8 (8-16) 10/17/16 21:34 BUN 61 mg/dL (7-18) H D 10/17/16 21:34 Creatinine 5.8 mg/dL (0.7-1.3) H D 10/17/16 21:34 Creat Clearance w eGFR 10.53 (>60) 10/17/16 21:34 POC Glucometer 336.95866 UNITS (()) 10/17/16 21:40 Random Glucose 280 mg/dL (74-106) H D 10/17/16 21:34 Calcium 8.1 mg/dL (8.5-10.1) L 10/17/16 21:34 Total Bilirubin 0.4 mg/dL (0.2-1.0) D 10/17/16 21:34 AST 18 U/L (15-37) 10/17/16 21:34 ALT 19 U/L (12-78) 10/17/16 21:34 Alkaline Phosphatase 111 U/L (45-117) 10/17/16 21:34 Creatine Kinase 899 IU/L (39-308) H 10/17/16 21:34 Creatine Kinase Index 1.0 % (0.0-5.0) 10/17/16 21:34 CK-MB (CK-2) 9.292 ng/mL (0.5-3.6) H 10/17/16 21:34 Troponin I 0.12 ng/ml (0.00-0.05) H D 10/17/16 21:34 Total Protein 7.4 g/dl (6.4-8.2) 10/17/16 21:34 Albumin 3.7 g/dl (3.4-5.0) 10/17/16 21:34 Active Medications Aspirin (Asa -) 81 mg PO DAILY [facility] Budesonide/Formoterol Fumarate (Symbicort 160/4.5mcg -) 1 puff IH BID [facility] Gabapentin (Neurontin -) 300 mg PO TID [facility] Heparin Sodium (Porcine) (Heparin -) 5,000 unit SQ BID [facility] Ceftriaxone Sodium 1 gm/ (Dextrose) 50 mls @ 100 mls/hr IVPB DAILY [facility] Insulin Aspart (Novolog Vial Sliding Scale -) 1 vial SQ ACHS [facility] PRN Reason: Protocol Nifedipine (Procardia Xl -) 60 mg PO DAILY [facility] Non-Formulary Medication (Ferrous Sulfate [Feosol]) 325 mg PO TID [facility] Non-Formulary Medication (Omeprazole Pediatric Solution) 20 mg PO DAILY [facility] Rosuvastatin Calcium (Crestor -) 5 mg PO DAILY [facility] Tamsulosin HCl (Flomax -) 0.4 mg PO DAILY [facility] Tiotropium [place] (Spiriva -) 1 puff IH DAILY [facility] Imaging - Results Ultrasound: Report Reviewed (no hydronephrosis, no obstruction noted on preliminary read) Problem List - Problems (1) Diabetes Code(s): E11.9 - TYPE 2 DIABETES MELLITUS WITHOUT COMPLICATIONS (2) Hyperkalemia Code(s): E87.5 - HYPERKALEMIA (3) Hyperlipidemia Code(s): E78.5 - HYPERLIPIDEMIA, UNSPECIFIED (4) Kidney failure Code(s): N19 - UNSPECIFIED KIDNEY FAILURE (5) Morbid obesity Code(s): E66.01 - MORBID (SEVERE) OBESITY DUE TO EXCESS CALORIES (6) Syncope Code(s): R55 - SYNCOPE AND COLLAPSE (7) Tachycardia Code(s): R00.0 - TACHYCARDIA, UNSPECIFIED Assessment/Plan 45yom with PMHx of HTN, DMII, CHF, Pulm HTN and morbid obesity who was BIBEMS from home after he acutely syncopized and became unresponsive. He is found to have an FERMIN possibly pre renal due to report of N/V at home. Unable to do CT A/ P but renal US appears negative for obstruction. Plan: Renal: FERMIN of unclear etiology; Hyperkalemia; ? UTI -Renal consult -Monitor BMP and UOP -Send urine lytes and calc FeNa -f/u final read of renal US -Fluid bolus as needed -medically manage hyperkalemia -f/u cultures -cont Ceftriaxone for empiric UTI coverage Pulm/CV: HTN, CHF, pulm HTN -HD monitor -O2 support for O2sat>92% -Cont COPD nebs -Trend troponin -Trend lactate -AntiHTN meds as needed -Continue statin Endo: DMII -Fingersticks q6 -Cont insulin coverage -BG goal 40-180 Proph: Hep SQ/PPI
[2016-10-18] MEDS ORDERED: CEFTRIAXONE 1 GM in DEXTROSE 5%-WATER - 50 ML IVPB SCH (02:15)
[2016-10-18] MEDS: cefTRIAXone 1 GM/50 ML BAG (PRE-DOCKED) IVPB SCH ×2 (03:10→10:14)
[2016-10-18 03:44] VITALS: BMI 72.0
[2016-10-18 03:47] LABS: MCH 28.4 pg (25.7-33.7); MEAN CELL VOLUME 91.6 fl (80-96); MEAN PLT VOLUME 8.4 fl (7.5-11.1); PLATELET COUNT 221 K/MM3 (134-434); RDW 14.1 % (11.9-15.9); WHITE BLOOD COUNT 9.8 K/mm3 (4.0-10.0)
[2016-10-18 03:48] LABS: URINE APPEARANCE CLEAR; URINE BILIRUBIN NEGATIVE (NEGATIVE); URINE BLOOD 1+ (NEGATIVE); URINE COLOR YELLOW; URINE GLUCOSE (UA) 1+ (NEGATIVE); URINE KETONE NEGATIVE (NEGATIVE); URINE LEUK ESTERASE NEGATIVE (NEGATIVE); URINE NITRITE NEGATIVE (NEGATIVE)
[2016-10-18 03:49] LABS: URINE PROTEIN 2+ (NEGATIVE)
[2016-10-18 03:52] LABS: URINE BACTERIA RARE /hpf (NONE SEEN); URINE HYALINE CAST 35 /lpf; URINE MUCUS RARE; URINE RBC 5 /hpf (0-3); URINE WBC 12 /hpf (3-5)
[2016-10-18 04:11] LABS: ALBUMIN 3.2 g/dl (3.4-5.0); ANION GAP 7 (8-16); BILIRUBIN,TOTAL 0.4 mg/dL (0.2-1.0); CALCIUM 7.7 mg/dL (8.5-10.1); CO2 28 mmol/L (21-32); CPK 792 IU/L (39-308); CREATININE 5.7 mg/dL (0.7-1.3); GLUCOSE,RANDOM 254 mg/dL (74-106); SGOT/AST 18 U/L (15-37); SGPT/ALT 19 U/L (12-78); TOT PROT 6.6 g/dl (6.4-8.2)
[2016-10-18 04:13] LABS: ALK PHOS 97 U/L (45-117); TROPONIN I 0.11 ng/ml (0.00-0.05)
[2016-10-18] MEDS ORDERED: DEXTROSE 50%-WATER - 25 GM/50 ML VIAL IVPUSH ONE (04:39)
[2016-10-18] MEDS ORDERED: INSULIN REGULAR HUMAN 100 UNITS/ML *VIAL IVPUSH ONE (04:40)
[2016-10-18] MEDS ORDERED: CALCIUM GLUCONATE 10% - 1,000 MG/10 ML VIAL IVPB ONE (04:41)
[2016-10-18] MEDS ORDERED: SODIUM POLYSTYRENE SULFONATE 15 GM/60 ML BOTTLE PO ONE (04:43)
[2016-10-18] MEDS ORDERED: DEXTROSE 50%-WATER 50 ML DISP.SYRIN ONE (05:33)
[2016-10-18] MEDS: GABAPENTIN 300 MG CAPSULE (FP) PO SCH ×3 (05:36→22:27)
[2016-10-18] MEDS: INSULIN SLIDING SCALE (NOVOLOG) 1 VIAL SQ SCH ×4 (07:08→22:27)
--- NOTE | 2016-10-18 08:57 | CON.CARD ---
Consult Consult Specialty:: cardiology Reason for Consultation:: syncope - History of Present Illness Chief Complaint: Pt is lethargic; denies chest pain, dizziness, but falls asleep repeatedly. History of Present Illness: The patient is a 45 year old black male with a significant past medical history of morbid obesity, ?sleep apnea, diabetes, HTN, HLD, nephrolithiasis, ?CKD, and COPD who presents to the ED, via EMS, s/p loss of consciousness earlier today. The patient reports he was at home taking care of his nieces when he stood up from his chair and had a loss of consciousness. Patient does not fully recall the episode. He also reports multiple episodes of nonbilious vomiting throughout the day. EMS states patients blood sugar was 216 en route. Patient was recently seen in the ED on 10/14/16 and treated for a kidney stone. Denies fevers. Denies chest pain or shortness of breath. Denies abdominal pain or diarrhea. Denies headache. Denies focal numbness, weakness, or tingling. Denies any other symptoms. - History Source History Provided By: Patient, Medical Record Limitations to Obtaining History: Other (lethargic) - Past Medical History Cardio/Vascular: Yes: HTN, Hyperlipdemia, Pulmonary Hypertension, Other (morbid obesity; sedentary) Pulmonary: Yes: Bronchitis, COPD Renal/: Yes: Renal Inusuff Psych: Yes: Anxiety Endocrine: Yes: Diabetes Mellitus - Past Surgical History Past Surgical History: Yes: Joint Replacement (b/l knees) - Alcohol/Substance Use Hx Alcohol Use: No History of Substance Use: reports: None - Smoking History Smoking history: Never smoked Have you smoked in the past 12 months: No Aproximately how many cigarettes per day: 0 If you are a former smoker, when did you quit?: 1998 Home Medications - Allergies Allergies/Adverse Reactions: Allergies Allergy/AdvReac Type Severity Reaction Status Date / Time No Known Allergies Allergy Verified 10/17/16 21:38 - Home Medications Home Medications: Ambulatory Orders Aspirin [ASA -] 81 mg PO DAILY #30 tab.chew 12/19/13 Metformin HCl [Metformin HCl ER] 1,000 mg PO BID #60 tab.er.24 12/19/13 Ascorbate Calcium [Vitamin C] 500 mg PO BID 06/09/14 Ferrous Sulfate [Feosol] 325 mg PO TID 06/09/14 Furosemide [Lasix -] 60 mg PO DAILY 06/09/14 Gabapentin 300 mg PO TID 06/09/14 Insulin Lispro Protamin/Lispro [Humalog Mix 75-25 Kwikpen] 55 unit SQ AM Insulin NPL/Insulin Lispro [Humalog Mix 75-25 Vial] 25 unit SQ HS 06/09/14 Omeprazole [Prilosec (RX)] 20 mg PO DAILY 06/09/14 Rosuvastatin Calcium [Crestor] 5 mg PO DAILY 06/09/14 Acetaminophen [Tylenol .Regular Strength -] 650 mg PO Q4H PRN #0 tablet Budesonide/Formeterol Fumarate [SYMBICORT 160/4.5mcg -] 1 puff IH BID inhaler 05/22/15 Doxycycline Hyclate [Vibramycin -] 100 mg PO BID@1000,1800 capsule 05/22/15 Enoxaparin [Lovenox -] 40 mg SQ DAILY disp.syrin 05/22/15 Guaifenesin Dm [Robitussin Dm -] 10 ml PO Q4H PRN #0 cup 05/22/15 Hydrochlorothiazide [Hctz -] 25 mg PO DAILY #0 tablet 05/22/15 Nifedipine ER [Procardia XL -] 60 mg PO DAILY tab.er.24 05/22/15 Nifedipine ER [Procardia XL -] 90 mg PO DAILY tab.er.24 05/22/15 Prednisone [Deltasone -] 40 mg PO DAILY tablet 05/22/15 Tiotropium [place] [Spiriva] 1 puff IH DAILY inh 05/22/15 Valsartan [Diovan] 320 mg PO DAILY #0 tablet 05/22/15 Ibuprofen 800 mg PO TID #30 tablet 12/20/15 Methocarbamol [Robaxin -] 750 mg PO BID #20 tablet 12/20/15 Oxycodone HCl/Acetaminophen [Percocet 5-325 mg Tablet] 1 - 2 tab PO Q6H #20 tablet MDD 4 12/20/15 Ibuprofen 800 mg PO TID #20 tablet 10/15/16 Ondansetron [Zofran -] 4 mg PO BID PRN #10 tablet 10/15/16 Oxycodone HCl/Acetaminophen [Percocet 10-325 mg Tablet] 1 each PO Q6H PRN #12 tablet MDD 4 10/15/16 Sulfamethoxazole/Trimethoprim [Bactrim Ds -] 1 tab PO BID #14 tablet 10/15/16 Tamsulosin HCl [Flomax -] 0.4 mg PO DAILY #5 capsule 10/15/16 Review of Systems Unable to obtain ROS, reason: pt is lethargic - Review of Systems Respiratory: reports: SOB on Exertion Musculoskeletal: reports: Decreased ROM - Risk Factors Known Risk Factors: Yes: Diabetes Mellitus, Gender, Hypercholesterolemia, Hypertension, Physical Inactivity, Race, Other (morbid obesity; ? sleep apnea) Vital Signs: Vital Signs Temperature 99.1 F 10/18/16 04:00 Pulse Rate 103 H 10/18/16 06:00 Respiratory Rate 18 10/18/16 06:00 Blood Pressure 144/76 10/18/16 06:00 O2 Sat by Pulse Oximetry (%) 99 10/18/16 00:53 Constitutional: Yes: Obese, Other (lethargic) Eyes: Yes: WNL Respiratory: Yes: Tachypnea Gastrointestinal: Yes: Abdomen, Obese Renal/: No: Anuria Cardiovascular: Yes: Tachycardia Heart Sounds: Yes: S1, S2, S4 Edema: Yes Edema: LLE: 1+, RLE: 1+ Peripheral Pulses WNL: No Peripheral Pulses: 1+ Left Doralis Pedis, 1+ Right Dorsalis Pedis Integumentary: Yes: WNL Neurological: Yes: Lethargy Psychiatric: Yes: Other - Other Data Labs, Other Data: CBC, BMP 10/18/16 03:00 10/18/16 03:00 INR, PTT INR 0.94 (0.82-1.09) 10/17/16 21:34 Troponin, BNP 10/18/16 03:00 Troponin I 0.11 H B-Natriuretic Peptide 660.40 H Troponin, BNP 10/18/16 03:00 Troponin I 0.11 H B-Natriuretic Peptide 660.40 H Echo: Report Reviewed (2014: normal LVEF; mld LVH) Imaging - Results Chest X-ray: Image Reviewed EKG: Image Reviewed Problem List - Problems (1) Diabetes Code(s): E11.9 - TYPE 2 DIABETES MELLITUS WITHOUT COMPLICATIONS (2) Hyperkalemia Code(s): E87.5 - HYPERKALEMIA (3) Hyperlipidemia Code(s): E78.5 - HYPERLIPIDEMIA, UNSPECIFIED (4) Kidney failure Assessment/Plan: F/u with lunchroom mother. Code(s): N19 - UNSPECIFIED KIDNEY FAILURE (5) Morbid obesity Code(s): E66.01 - MORBID (SEVERE) OBESITY DUE TO EXCESS CALORIES (6) Syncope Code(s): R55 - SYNCOPE AND COLLAPSE (7) Tachycardia Code(s): R00.0 - TACHYCARDIA, UNSPECIFIED (8) Acute on chronic respiratory failure with hypoxia and hypercapnia Assessment/Plan: BIPAP; f/u closely with pulmonology. Code(s): J96.21 - ACUTE AND CHRONIC RESPIRATORY FAILURE WITH HYPOXIA J96.22 - ACUTE AND CHRONIC RESPIRATORY FAILURE WITH HYPERCAPNIA (9) Sleep apnea Assessment/Plan: Pt is lethargic; at first he said he was on BiPAP at home for TATI, though noncompliant; later, he seemed to say he was not on the therapy. F/u records; consult with prototype machinist. Code(s): G47.30 - SLEEP APNEA, UNSPECIFIED (10) Diastolic CHF Assessment/Plan: 05/2014 ECHO: normal LVEF: mild-moderate pulmonary HTN. ECHO this admission. Code(s): I50.30 - UNSPECIFIED DIASTOLIC (CONGESTIVE) HEART FAILURE (11) Elevated CK Assessment/Plan: mildly elevated TNI, with low CK/CKMB relative index. total CK > 800. Renal failure; hyperkalemia. When stable: coronary artery workup. Code(s): R74.8 - ABNORMAL LEVELS OF OTHER SERUM ENZYMES (12) Elevated troponin I level Assessment/Plan: 0.11, with low CK/CKMB relative index; no acute ST-T changes on EKG. +Renal failure. F/u fasting lipids. TSH (WNL in 2013). Coronary artery evaluation when stable. Code(s): R74.8 - ABNORMAL LEVELS OF OTHER SERUM ENZYMES
[2016-10-18] MEDS ORDERED: ENOXAPARIN NA (PORCINE) 40 MG/0.4 ML DISP.SYRIN SQ SCH (10:00)
[2016-10-18] MEDS: HEPARIN NA (PORCINE) 5,000 UNITS/ML 1ML VIAL SQ SCH ×2 (10:14→22:26)
[2016-10-18] MEDS: FERROUS SO4 325 MG TABLET (FP) PO SCH ×3 (10:15→17:03)
[2016-10-18] MEDS: PANTOPRAZOLE 20 MG TABLET (FP) PO SCH (10:15)
[2016-10-18] MEDS: NIFEdipine E.R 60 MG TABLET (UD) PO SCH (10:15)
[2016-10-18] MEDS: ASPIRIN 81 MG CHEWABLE TABLETS PO SCH (10:15)
[2016-10-18] MEDS: TAMSULOSIN HCL 0.4 MG CAP.ER.24H (FP) PO SCH (10:15)
[2016-10-18] MEDS: ACLIDINIUM BROMIDE 400 MCG/INH AERO.POWD IH SCH ×2 (11:14→22:40)
[2016-10-18] MEDS: BUDESONIDE/FORMETEROL FUMARATE 160/4.5 mcg INHALER IH SCH ×2 (11:14→22:40)
[2016-10-18 11:19] LABS: BASOPHIL 0.9 % (0-2.0); EOSINOPHIL 0.7 % (0-4.5); MCHC 31.9 g/dl (32.0-35.9); NEUTROPHILS 75.3 % (42.8-82.8); PLATELET COUNT 233 K/MM3 (134-434); RDW 14.1 % (11.9-15.9); WHITE BLOOD COUNT 9.4 K/mm3 (4.0-10.0)
[2016-10-18] MEDS ORDERED: IBUPROFEN 400 MG TABLET (FP) PO PRN (11:21)
[2016-10-18] MEDS ORDERED: SODIUM CHLORIDE 1,000 ML IV SCH (11:30)
[2016-10-18 11:44] LABS: ANION GAP 7 (8-16); CALCIUM 8.4 mg/dL (8.5-10.1); CO2 30 mmol/L (21-32); CREATININE 5.5 mg/dL (0.7-1.3); GLUCOSE,RANDOM 184 mg/dL (74-106); MAGNESIUM 2.5 mg/dL (1.8-2.4); PHOSPHOROUS 4.2 mg/dL (2.5-4.9)
--- NOTE | 2016-10-18 16:44 | PN ---
Progress Note, Physician - Current Medication List Current Medications: Active Medications Aclidinium [place] (Tudorza -) 1 puff IH BID [facility] Last Admin: 10/18/16 11:14 Dose: 1 puff Aspirin (Asa -) 81 mg PO DAILY [facility] Last Admin: 10/18/16 10:15 Dose: 81 mg Budesonide/Formoterol Fumarate (Symbicort 160/4.5mcg -) 1 puff IH BID [facility] Last Admin: 10/18/16 11:14 Dose: 1 puff Ceftriaxone Sodium (Rocephin 1gm Ivpb (Pre-Docked)) 1 gm IVPB DAILY [facility] Last Admin: 10/18/16 10:14 Dose: 1 gm Ferrous Sulfate (Feosol -) 325 mg PO TIDCM [facility] Last Admin: 10/18/16 12:03 Dose: 325 mg Gabapentin (Neurontin -) 300 mg PO TID [facility] Last Admin: 10/18/16 13:24 Dose: 300 mg Heparin Sodium (Porcine) (Heparin -) 5,000 unit SQ BID [facility] Last Admin: 10/18/16 10:14 Dose: 5,000 unit Sodium Chloride (Normal Saline -) 1,000 mls @ 125 mls/hr IV ASDIR [facility] Last Admin: 10/18/16 12:03 Dose: 125 mls/hr Ibuprofen (Motrin -) 800 mg PO Q8H PRN PRN Reason: MODERATE PAIN Insulin Aspart (Novolog Vial Sliding Scale -) 1 vial SQ ACHS [facility] PRN Reason: Protocol Last Admin: 10/18/16 12:02 Dose: 4 units Nifedipine (Procardia Xl -) 60 mg PO DAILY [facility] Last Admin: 10/18/16 10:15 Dose: 60 mg Pantoprazole Sodium (Protonix -) 20 mg PO DAILY [facility] Last Admin: 10/18/16 10:15 Dose: 20 mg Rosuvastatin Calcium (Crestor -) 5 mg PO HS [facility] Tamsulosin HCl (Flomax -) 0.4 mg PO DAILY@0830 [facility] Last Admin: 10/18/16 10:15 Dose: 0.4 mg - Objective Vital Signs: Vital Signs Temperature 98.4 F 10/18/16 16:19 Pulse Rate 95 H 10/18/16 16:19 Respiratory Rate 20 10/18/16 16:19 Blood Pressure 134/77 10/18/16 16:19 O2 Sat by Pulse Oximetry (%) 98 07/29/17 10:33 Labs: CBC, BMP 10/18/16 10:50 10/18/16 10:50 INR, PTT INR 0.94 (0.82-1.09) 10/17/16 21:34
--- NOTE | 2016-10-18 18:21 | CONSULT ---
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 Pt is a poor historian and unable to give much history. I was called to evaluate him for FERMIN. He has had a rapid worsening of his creatinine over the last few days. He did have several episodes of vomiting before coming to the ER. He was also found to be hyperkalemic. He denies shortness of breath or chest pain. A cruz was placed and he is making urine. - History Source History Provided By: Patient, Medical Record - Past Medical History Cardio/Vascular: Yes: HTN, Hyperlipdemia, Pulmonary Hypertension, Other (morbid obesity; sedentary) Pulmonary: Yes: Bronchitis, COPD Renal/: Yes: Renal Calculi Endocrine: Yes: Diabetes Mellitus - Past Surgical History Past Surgical History: Yes: Joint Replacement (b/l knees) - Alcohol/Substance Use Hx Alcohol Use: No History of Substance Use: reports: None - Smoking History Smoking history: Never smoked Have you smoked in the past 12 months: No Aproximately how many cigarettes per day: 0 If you are a former smoker, when did you quit?: 1998 Home Medications - Allergies Allergies/Adverse Reactions: Allergies Allergy/AdvReac Type Severity Reaction Status Date / Time No Known Allergies Allergy Verified 10/17/16 21:38 - Home Medications Home Medications: Ambulatory Orders Aspirin [ASA -] 81 mg PO DAILY #30 tab.chew 12/19/13 Metformin HCl [Metformin HCl ER] 1,000 mg PO BID #60 tab.er.24 12/19/13 Ascorbate Calcium [Vitamin C] 500 mg PO BID 06/09/14 Ferrous Sulfate [Feosol] 325 mg PO TID 06/09/14 Furosemide [Lasix -] 60 mg PO DAILY 06/09/14 Gabapentin 300 mg PO TID 06/09/14 Insulin Lispro Protamin/Lispro [Humalog Mix 75-25 Kwikpen] 55 unit SQ AM Insulin NPL/Insulin Lispro [Humalog Mix 75-25 Vial] 25 unit SQ HS 06/09/14 Omeprazole [Prilosec (RX)] 20 mg PO DAILY 06/09/14 Rosuvastatin Calcium [Crestor] 5 mg PO DAILY 06/09/14 Acetaminophen [Tylenol .Regular Strength -] 650 mg PO Q4H PRN #0 tablet Budesonide/Formeterol Fumarate [SYMBICORT 160/4.5mcg -] 1 puff IH BID inhaler 05/22/15 Doxycycline Hyclate [Vibramycin -] 100 mg PO BID@1000,1800 capsule 05/22/15 Enoxaparin [Lovenox -] 40 mg SQ DAILY disp.syrin 05/22/15 Guaifenesin Dm [Robitussin Dm -] 10 ml PO Q4H PRN #0 cup 05/22/15 Hydrochlorothiazide [Hctz -] 25 mg PO DAILY #0 tablet 05/22/15 Nifedipine ER [Procardia XL -] 60 mg PO DAILY tab.er.24 05/22/15 Nifedipine ER [Procardia XL -] 90 mg PO DAILY tab.er.24 05/22/15 Prednisone [Deltasone -] 40 mg PO DAILY tablet 05/22/15 Tiotropium [place] [Spiriva] 1 puff IH DAILY inh 05/22/15 Valsartan [Diovan] 320 mg PO DAILY #0 tablet 05/22/15 Ibuprofen 800 mg PO TID #30 tablet 12/20/15 Methocarbamol [Robaxin -] 750 mg PO BID #20 tablet 12/20/15 Oxycodone HCl/Acetaminophen [Percocet 5-325 mg Tablet] 1 - 2 tab PO Q6H #20 tablet MDD 4 12/20/15 Ibuprofen 800 mg PO TID #20 tablet 10/15/16 Ondansetron [Zofran -] 4 mg PO BID PRN #10 tablet 10/15/16 Oxycodone HCl/Acetaminophen [Percocet 10-325 mg Tablet] 1 each PO Q6H PRN #12 tablet MDD 4 10/15/16 Sulfamethoxazole/Trimethoprim [Bactrim Ds -] 1 tab PO BID #14 tablet 10/15/16 Tamsulosin HCl [Flomax -] 0.4 mg PO DAILY #5 capsule 10/15/16 Family Disease History - Family Disease History Family History: Denies Review of Systems - Review of Systems Constitutional: reports: Loss of Appetite, Malaise, Weakness HENT: reports: No Symptoms Neck: reports: No Symptoms Cardiovascular: denies: Chest Pain, Shortness of Breath Respiratory: reports: No Symptoms Gastrointestinal: reports: Vomiting Musculoskeletal: reports: No Symptoms Integumentary: reports: No Symptoms Neurological: reports: Change in LOC, Syncope Endocrine: reports: No Symptoms Hematology/Lymphatic: reports: No Symptoms Physical Exam Vital Signs: Vital Signs Temperature 98.6 F 10/18/16 16:58 Pulse Rate 99 H 10/18/16 16:58 Respiratory Rate 18 10/18/16 16:58 Blood Pressure 134/77 10/18/16 16:19 O2 Sat by Pulse Oximetry (%) 98 10/18/16 10:33 Constitutional: Yes: Calm Eyes: Yes: Conjunctiva Clear HENT: Yes: Atraumatic Cardiovascular: Yes: S1, S2 Respiratory: Yes: CTA Bilaterally Gastrointestinal: Yes: Soft, Abdomen, Obese Renal/: Yes: Cruz Present Musculoskeletal: Yes: Muscle Weakness Edema: Yes Edema: LLE: 1+, RLE: 1+ Neurological: Yes: Other (awake but appears faigued) Labs: CBC, BMP 10/18/16 10:50 10/18/16 10:50 Laboratory Tests 05/19/15 05/21/15 05/22/15 13:45 05:35 05:50 WBC Hgb Sodium Potassium Chloride Carbon Dioxide Anion Gap BUN Creatinine 1.4 H D 1.4 H 1.5 H Urine Color Urine Appearance Urine pH Ur Specific [place] Urine Protein Urine Blood Acetone, Qual 10/15/16 10/17/16 10/17/16 02:34 21:34 21:34 WBC 10.3 H Hgb 12.0 D Sodium Potassium 5.6 H Chloride Carbon Dioxide Anion Gap BUN Creatinine 2.0 H D 5.8 H D Urine Color Urine Appearance Urine pH Ur Specific [place] Urine Protein Urine Blood Acetone, Qual Negative 10/18/16 10/18/16 10/18/16 03:00 03:00 03:26 WBC 9.8 Hgb 11.1 L Sodium Potassium 5.9 H Chloride Carbon Dioxide Anion Gap BUN Creatinine 5.7 H Urine Color Yellow Urine Appearance Clear Urine pH 5.0 Ur Specific [place] 1.025 Urine Protein 2+ H Urine Blood 1+ H Acetone, Qual 10/18/16 10/18/16 10:50 10:50 WBC 9.4 Hgb 11.6 L Sodium 136 Potassium 5.0 Chloride 99 Carbon Dioxide 30 Anion Gap 7 L BUN 63 H Creatinine 5.5 H Urine Color Urine Appearance Urine pH Ur Specific [place] Urine Protein Urine Blood Acetone, Qual Imaging - Results Chest X-ray: Report Reviewed Ultrasound: Report Reviewed (negative renal ultrasound) Problem List - Problems (1) Diabetes Code(s): E11.9 - TYPE 2 DIABETES MELLITUS WITHOUT COMPLICATIONS (2) Hyperkalemia Code(s): E87.5 - HYPERKALEMIA (3) Hyperlipidemia Code(s): E78.5 - HYPERLIPIDEMIA, UNSPECIFIED (4) Kidney failure Code(s): N19 - UNSPECIFIED KIDNEY FAILURE (5) Morbid obesity Code(s): E66.01 - MORBID (SEVERE) OBESITY DUE TO EXCESS CALORIES Assessment/Plan Current Medications Generic Name Dose Route Start Last Admin Trade Name Freq PRN Reason Stop Dose Admin Aclidinium [place] 1 puff 10/18/16 10:00 10/18/16 11:14 Tudorza - IH 1 puff BID [facility] Administration Aspirin 81 mg 10/18/16 10:00 10/18/16 10:15 Asa - PO 81 mg DAILY [facility]ON Administration Budesonide/Formoterol Fumarate 1 puff 10/18/16 10:00 10/18/16 11:14 Symbicort 160/4.5mcg - IH 1 puff BID [facility] Administration Ceftriaxone Sodium 1 gm 10/18/16 02:30 10/18/16 10:14 Rocephin 1gm Ivpb (Pre-Docked) IVPB 1 gm DAILY [facility] Administration Ferrous Sulfate 325 mg 10/18/16 08:00 10/18/16 17:03 Feosol - PO 325 mg TIDCM [facility]ENON Administration Gabapentin 300 mg 10/18/16 06:00 10/18/16 13:24 Neurontin - PO 300 mg TID [facility] Administration Heparin Sodium (Porcine) 5,000 unit 10/18/16 10:00 10/18/16 10:14 Heparin - SQ 5,000 unit BID [facility] Administration Sodium Chloride 1,000 mls @ 125 mls/hr 10/18/16 11:30 10/18/16 12:03 Normal Saline - IV 125 mls/hr ASDIR [facility]ENON Administration Ibuprofen 800 mg 10/18/16 11:21 10/18/16 17:02 Motrin - PO 800 mg Q8H PRN Administration MODERATE PAIN Insulin Aspart 1 vial 07/29/17 07:00 10/18/16 17:07 Novolog Vial Sliding Scale - SQ 6 units ACHS [facility]ENON Administration Protocol Nifedipine 60 mg 10/18/16 10:00 10/18/16 10:15 Procardia Xl - PO 60 mg DAILY [facility] Administration Pantoprazole Sodium 20 mg 10/18/16 10:00 10/18/16 10:15 Protonix - PO 20 mg DAILY [facility] Administration Rosuvastatin Calcium 5 mg 10/18/16 22:00 Crestor - PO HS [facility]ENON Tamsulosin HCl 0.4 mg 10/18/16 08:30 10/18/16 10:15 Flomax - PO 0.4 mg DAILY@0830 [facility]ENON Administration Laboratory Tests 10/17/16 10/18/16 21:34 03:00 Creatine Kinase 899 H 792 H Impression 1. FERMIN 2. hyperkalemia 3. morbid obesity 4. DM 5. HTN 6. likely sleep apnea 7. syncope 8. rhabdo Plan - check urine electrolytes and creatinine - stop motrin and do not give nsaids - renal ultrasound reviewed - pt could be intravascularly depleted from vomiting - cardiology input appreciated - cont wiht fluids - repeat labs in am - potassium is improved - will monitor renal function - will send prelim workup - gabapentin dose should be decreased - he will need outpt follow up as well Dr Martin
[2016-10-18 19:50] LABS: URINE APPEARANCE CLEAR; URINE BILIRUBIN NEGATIVE (NEGATIVE); URINE BLOOD 3+ (NEGATIVE); URINE COLOR LTYELLOW; URINE GLUCOSE (UA) 1+ (NEGATIVE); URINE KETONE NEGATIVE (NEGATIVE); URINE LEUK ESTERASE NEGATIVE (NEGATIVE); URINE NITRITE NEGATIVE (NEGATIVE); URINE UROBILINOGEN NEGATIVE mg/dL (0.2-1.0)
[2016-10-18 20:21] LABS: URINE PROTEIN 1+ (NEGATIVE)
[2016-10-18 20:22] LABS: GRANULAR CASTS 3 /lpf; URINE HYALINE CAST 4 /lpf; URINE MUCUS RARE; URINE RBC 202 /hpf (0-3); URINE WBC 9 /hpf (3-5)
[2016-10-18] MEDS ORDERED: SODIUM CHLORIDE NASAL SPRAY 44 ML BOTTLE NS PRN (20:33)
[2016-10-18] MEDS ORDERED: INSULIN DETEMIR 100 UNITS/ML MDV SQ SCH (22:00)
[2016-10-18] MEDS ORDERED: PT OWN MED DRAWER 7, Y5N ONE (22:20)
[2016-10-18] MEDS ORDERED: INSULIN (NOVOLOG MIX 70/30) 100 UNITS/ML MDV SQ ONE (22:20)
[2016-10-18] MEDS: ROSUVASTATIN CA 5 MG TABLET (FP) PO SCH (22:26)
[2016-10-18] MEDS: INSULIN (NOVOLOG MIX 70/30) 100 UNITS/ML MDV SQ SCH (22:37)
[2016-10-19 06:20] LABS: BASOPHIL 0.4 % (0-2.0); EOSINOPHIL 2.2 % (0-4.5); MCH 29.1 pg (25.7-33.7); MCHC 32.1 g/dl (32.0-35.9); MEAN CELL VOLUME 90.6 fl (80-96); MEAN PLT VOLUME 8.5 fl (7.5-11.1); PLATELET COUNT 218 K/MM3 (134-434); RDW 13.8 % (11.9-15.9); WHITE BLOOD COUNT 6.8 K/mm3 (4.0-10.0)
[2016-10-19] MEDS ORDERED: LABETALOL HCL 5 MG/1 ML (100MG/20 ML VIAL) IVPUSH ONE ×2 (06:37→23:26)
[2016-10-19] MEDS: INSULIN SLIDING SCALE (NOVOLOG) 1 VIAL SQ SCH ×4 (06:40→21:45)
[2016-10-19] MEDS: INSULIN (NOVOLOG MIX 70/30) 100 UNITS/ML MDV SQ SCH ×2 (06:40→21:24)
[2016-10-19] MEDS: GABAPENTIN 300 MG CAPSULE (FP) PO SCH ×2 (06:47→13:24)
[2016-10-19 06:48] LABS: ALBUMIN 3.2 g/dl (3.4-5.0); ANION GAP 6 (8-16); BILIRUBIN,TOTAL 0.7 mg/dL (0.2-1.0); CALCIUM 8.2 mg/dL (8.5-10.1); CO2 31 mmol/L (21-32); CREATININE 3.8 mg/dL (0.7-1.3); GLUCOSE,RANDOM 234 mg/dL (74-106); SGOT/AST 15 U/L (15-37); SGPT/ALT 19 U/L (12-78)
[2016-10-19 06:50] LABS: ALK PHOS 100 U/L (45-117); TOT PROT 6.9 g/dl (6.4-8.2)
[2016-10-19] MEDS: PANTOPRAZOLE 20 MG TABLET (FP) PO SCH (10:04)
[2016-10-19] MEDS: BUDESONIDE/FORMETEROL FUMARATE 160/4.5 mcg INHALER IH SCH ×2 (10:04→21:43)
[2016-10-19] MEDS: TAMSULOSIN HCL 0.4 MG CAP.ER.24H (FP) PO SCH (10:04)
[2016-10-19] MEDS: HEPARIN NA (PORCINE) 5,000 UNITS/ML 1ML VIAL SQ SCH ×2 (10:04→21:26)
[2016-10-19] MEDS: ASPIRIN 81 MG CHEWABLE TABLETS PO SCH (10:04)
[2016-10-19] MEDS: NIFEdipine E.R 60 MG TABLET (UD) PO SCH (10:04)
[2016-10-19] MEDS: cefTRIAXone 1 GM/50 ML BAG (PRE-DOCKED) IVPB SCH (10:04)
[2016-10-19] MEDS: FERROUS SO4 325 MG TABLET (FP) PO SCH ×3 (10:04→18:21)
[2016-10-19] MEDS: ACLIDINIUM BROMIDE 400 MCG/INH AERO.POWD IH SCH ×2 (10:05→21:35)
[2016-10-19 11:11] LABS: CPK 649 IU/L (39-308)
--- NOTE | 2016-10-19 11:21 | PN ---
Progress Note (short form) - Note Progress Note: PULM/CCM Pt seen and examined in ICU 24Hr: Cr downtrending in setting of positive fluid balance c/f volume depletion awake, alert and without complaint this morning Vital Signs Temp 98.9 F 10/19/16 06:00 Pulse 77 10/19/16 10:20 Resp 18 10/19/16 06:00 BP 178/92 10/19/16 06:00 Pulse Ox 95 10/19/16 10:20 Intake & Output 10/18/16 10/18/16 10/19/16 11:59 23:59 11:59 Intake Total 400 2080 200 Output Total 400 1200 1000 Balance 0 880 -800 Weight 196.405 kg 197 kg Intake: IV 1500 Normal Saline - 1,000 ml 1500 @ 125 mls/hr IV ASDIR [facility] Rx#:[id number] IVPB 200 100 Oral 200 480 200 Output: Urine 400 1200 1000 Ibrahim 400 1200 1000 Other: Voiding Method Indwelling Catheter Indwelling Catheter Indwelling Catheter Bowel Movement No No Height 5 ft 5 in Body Mass Index (BMI) 72.0 Weight Measurement Method [facility] Active Medications Aclidinium [place] (Tudorza -) 1 puff IH BID [facility] Last Admin: 10/19/16 10:05 Dose: 1 puff Aspirin (Asa -) 81 mg PO DAILY [facility] Last Admin: 10/19/16 10:04 Dose: 81 mg Budesonide/Formoterol Fumarate (Symbicort 160/4.5mcg -) 1 puff IH BID [facility] Last Admin: 10/19/16 10:04 Dose: 1 puff Ceftriaxone Sodium (Rocephin 1gm Ivpb (Pre-Docked)) 1 gm IVPB DAILY [facility] Last Admin: 10/19/16 10:04 Dose: 1 gm Ferrous Sulfate (Feosol -) 325 mg PO TIDCM [facility] Last Admin: 10/19/16 10:04 Dose: 325 mg Gabapentin (Neurontin -) 300 mg PO TID [facility] Last Admin: 10/19/16 06:47 Dose: 300 mg Heparin Sodium (Porcine) (Heparin -) 5,000 unit SQ BID [facility] Last Admin: 10/19/16 10:04 Dose: 5,000 unit Insulin Aspart (Novolog Vial Sliding Scale -) 1 vial SQ ACHS [facility] PRN Reason: Protocol Last Admin: 10/19/16 10:25 Dose: 4 units Insulin Aspart (Novolog Mix 70/30 Vial) 25 units SQ HS [facility] Last Admin: 10/18/16 22:37 Dose: 25 units Insulin Aspart (Novolog Mix 70/30 Vial) 50 units SQ AM [facility] Last Admin: 10/19/16 06:40 Dose: 50 units Nifedipine (Procardia Xl -) 60 mg PO DAILY [facility] Last Admin: 10/19/16 10:04 Dose: 60 mg Pantoprazole Sodium (Protonix -) 20 mg PO DAILY [facility] Last Admin: 10/19/16 10:04 Dose: 20 mg Rosuvastatin Calcium (Crestor -) 5 mg PO HS [facility] Last Admin: 10/18/16 22:26 Dose: 5 mg Sodium Chloride ([place] Nasal [place] -) 2 spray NS TID PRN PRN Reason: NASAL CONGESTION Last Admin: 10/18/16 22:37 Dose: 2 spray Tamsulosin HCl (Flomax -) 0.4 mg PO DAILY@0830 [facility] Last Admin: 10/19/16 10:04 Dose: 0.4 mg CBC, BMP 10/19/16 05:20 10/19/16 05:20 Microbiology 10/17/16 22:40 Urine - Urine - Catheterized Urine Culture - Final NO GROWTH OBTAINED 10/18/16 03:00 Blood - Peripheral Venous Blood Culture - Preliminary NO GROWTH OBTAINED AFTER 24 HOURS, INCUBATION TO CONTINUE FOR 4 DAYS. 10/18/16 03:00 Blood - Peripheral Venous Blood Culture - Preliminary NO GROWTH OBTAINED AFTER 24 HOURS, INCUBATION TO CONTINUE FOR 4 DAYS. Current Active Problems Diabetes (Acute) Diastolic CHF (Acute) Elevated CK (Acute) Elevated troponin I level (Acute) Hyperkalemia (Acute) Hyperlipidemia (Acute) Kidney failure (Acute) Morbid obesity (Acute) Syncope (Acute) Tachycardia (Acute) UTI (urinary tract infection) (Acute) PE: Gen: awake, alert, non distressed HEENT: NCAT, PERRL PULM: diminshed bases, clear anterior, no wheezes CV: distant heart sounds, regural , unable to appreciate murmur ABD: obese, soft EXT: dry skin, trace edema NEURO: awake, alert, non focal Assessment/Plan 45yom with PMHx of HTN, DMII, CHF, Pulm HTN and morbid obesity who was BIBEMS from home after he acutely syncopized and became unresponsive. He is found to have an FERMIN possibly pre renal due to report of N/V at home. Unable to do CT A/ P but renal US negative for obstruction. Plan: Renal: FERMIN of unclear etiology; Hyperkalemia; ? UTI, pre-renal azotemia -Renal consult, recs appreciate -Monitor BMP and UOP -Fluid bolus as needed -medically manage hyperkalemia prn, bid BMP -f/u cultures -cont Ceftriaxone for empiric UTI coverage Pulm/CV: HTN, CHF, pulm HTN -HD monitor -O2 support for O2sat>92% -Cont COPD nebs -Trend troponin -Trend lactate -AntiHTN meds as needed -Continue statin Endo: DMII -Fingersticks q6 -Cont insulin coverage -BG goal 40-180 Obesity: discussed weight loss, weight loss surgery Proph: Hep SQ/PPI -OK for transfer to floor. Ld Botello ACNP [id number]
[2016-10-19] MEDS ORDERED: ONDANSETRON 4 MG/2 ML VIAL IVPUSH PRN (11:28)
[2016-10-19] MEDS ORDERED: ONDANSETRON 4 MG/2 ML VIAL ONE (11:30)
--- NOTE | 2016-10-19 17:31 | PN ---
Progress Note, Physician History of Present Illness: Pt seen and examined at bedside. He is more awake and alert today than he was yesterday. He denies shortness of breath. - Current Medication List Current Medications: Active Medications Aclidinium [place] (Tudorza -) 1 puff IH BID [facility] Last Admin: 10/19/16 10:05 Dose: 1 puff Aspirin (Asa -) 81 mg PO DAILY [facility] Last Admin: 10/19/16 10:04 Dose: 81 mg Budesonide/Formoterol Fumarate (Symbicort 160/4.5mcg -) 1 puff IH BID [facility] Last Admin: 10/19/16 10:04 Dose: 1 puff Ceftriaxone Sodium (Rocephin 1gm Ivpb (Pre-Docked)) 1 gm IVPB DAILY [facility] Last Admin: 10/19/16 10:04 Dose: 1 gm Ferrous Sulfate (Feosol -) 325 mg PO TIDCM [facility] Last Admin: 10/19/16 13:23 Dose: 325 mg Gabapentin (Neurontin -) 300 mg PO TID [facility] Last Admin: 10/19/16 13:24 Dose: 300 mg Heparin Sodium (Porcine) (Heparin -) 5,000 unit SQ BID [facility] Last Admin: 10/19/16 10:04 Dose: 5,000 unit Insulin Aspart (Novolog Vial Sliding Scale -) 1 vial SQ ACHS [facility] PRN Reason: Protocol Last Admin: 10/19/16 10:25 Dose: 4 units Insulin Aspart (Novolog Mix 70/30 Vial) 25 units SQ HS [facility] Last Admin: 10/18/16 22:37 Dose: 25 units Insulin Aspart (Novolog Mix 70/30 Vial) 50 units SQ AM [facility] Last Admin: 10/19/16 06:40 Dose: 50 units Nifedipine (Procardia Xl -) 60 mg PO DAILY [facility] Last Admin: 10/19/16 10:04 Dose: 60 mg Ondansetron HCl (Zofran Injection) 8 mg IVPUSH Q6H PRN PRN Reason: NAUSEA AND/OR VOMITING Last Admin: 10/19/16 11:36 Dose: 8 mg Pantoprazole Sodium (Protonix -) 20 mg PO DAILY [facility] Last Admin: 10/19/16 10:04 Dose: 20 mg Rosuvastatin Calcium (Crestor -) 5 mg PO HS [facility] Last Admin: 10/18/16 22:26 Dose: 5 mg Sodium Chloride ([place] Nasal [place] -) 2 spray NS TID PRN PRN Reason: NASAL CONGESTION Last Admin: 10/18/16 22:37 Dose: 2 spray Tamsulosin HCl (Flomax -) 0.4 mg PO DAILY@0830 [facility] Last Admin: 10/19/16 10:04 Dose: 0.4 mg - Objective Vital Signs: Vital Signs Temperature 99.2 F 10/19/16 16:47 Pulse Rate 80 10/19/16 16:47 Respiratory Rate 17 10/19/16 14:00 Blood Pressure 164/95 10/19/16 16:47 O2 Sat by Pulse Oximetry (%) 95 10/19/16 10:20 Constitutional: Yes: Calm Eyes: Yes: Conjunctiva Clear HENT: Yes: Atraumatic Neck: Yes: Supple Cardiovascular: Yes: S1, S2 Respiratory: Yes: On Nasal O2 Gastrointestinal: Yes: Soft, Abdomen, Obese Genitourinary: Yes: WNL Musculoskeletal: Yes: Other (obese extremities) Edema: Yes Edema: LLE: Trace, RLE: Trace Neurological: Yes: Oriented Psychiatric: Yes: Oriented Labs: CBC, BMP 10/19/16 05:20 10/19/16 05:20 INR, PTT INR 0.94 (0.82-1.09) 10/17/16 21:34 Problem List - Problems (1) Diabetes Code(s): E11.9 - TYPE 2 DIABETES MELLITUS WITHOUT COMPLICATIONS (2) Hyperkalemia Code(s): E87.5 - HYPERKALEMIA (3) Hyperlipidemia Code(s): E78.5 - HYPERLIPIDEMIA, UNSPECIFIED (4) Kidney failure Code(s): N19 - UNSPECIFIED KIDNEY FAILURE (5) Morbid obesity Code(s): E66.01 - MORBID (SEVERE) OBESITY DUE TO EXCESS CALORIES Assessment/Plan Current Medications Generic Name Dose Route Start Last Admin Trade Name Freq PRN Reason Stop Dose Admin Aclidinium [place] 1 puff 10/18/16 10:00 10/19/16 10:05 Tudorza - 1 puff BID [facility] Administration Aspirin 81 mg 10/18/16 10:00 10/19/16 10:04 Asa - PO 81 mg DAILY [facility] Administration Budesonide/Formoterol Fumarate 1 puff 10/18/16 10:00 10/19/16 10:04 Symbicort 160/4.5mcg - IH 1 puff BID [facility] Administration Ceftriaxone Sodium 1 gm 10/18/16 02:30 10/19/16 10:04 Rocephin 1gm Ivpb (Pre-Docked) IVPB 1 gm DAILY [facility] Administration Ferrous Sulfate 325 mg 10/18/16 08:00 10/19/16 13:23 Feosol - PO 325 mg TIDCM [facility] Administration Gabapentin 300 mg 10/18/16 06:00 10/19/16 13:24 Neurontin - PO 300 mg TID [facility] Administration Heparin Sodium (Porcine) 5,000 unit 10/18/16 10:00 10/19/16 10:04 Heparin - SQ 5,000 unit BID [facility] Administration Insulin Aspart 1 vial 10/18/16 07:00 10/19/16 10:25 Novolog Vial Sliding Scale - SQ 4 units ACHS [facility] Administration Protocol Insulin Aspart 25 units 10/18/16 22:30 10/18/16 22:37 Novolog Mix 70/30 Vial SQ 25 units HS [facility] Administration Insulin Aspart 50 units 10/19/16 07:00 10/19/16 06:40 Novolog Mix 70/30 Vial SQ 50 units AM [facility] Administration Nifedipine 60 mg 10/18/16 10:00 10/19/16 10:04 Procardia Xl - PO 60 mg DAILY [facility] Administration Ondansetron HCl 8 mg 10/19/16 11:28 10/19/16 11:36 Zofran Injection IVPUSH 8 mg Q6H PRN Administration NAUSEA AND/OR VOMITING Pantoprazole Sodium 20 mg 10/18/16 10:00 10/19/16 10:04 Protonix - PO 20 mg DAILY [facility] Administration Rosuvastatin Calcium 5 mg 10/18/16 22:00 10/18/16 22:26 Crestor - PO 5 mg HS [facility] Administration Sodium Chloride 2 spray 10/18/16 20:33 10/18/16 22:37 [place] Nasal [place] - NS 2 spray TID PRN Administration NASAL CONGESTION Tamsulosin HCl 0.4 mg 10/18/16 08:30 10/19/16 10:04 Flomax - PO 0.4 mg DAILY@0830 [facility] Administration Laboratory Tests 10/18/16 10/18/16 10/18/16 10:50 19:41 19:41 Sodium 136 Creatinine 5.5 H Ur Random Sodium 54 Urine Creatinine 161.0 Impression 1. FERMIN 2. hyperkalemia 3. morbid obesity 4. DM 5. HTN 6. likely sleep apnea 7. syncope 8. rhabdo Plan - FENa is 1.36 - renal function did improve with hydration - change fluids to 1/2 ns - low potassium diet - please do not give nsaids - will monitor renal function - will send prelim workup - gabapentin dose should be decreased - he will need outpt follow up as well Dr Martin
[2016-10-19] MEDS ORDERED: SODIUM CHLORIDE 0.45% 1,000 ML IV SCH (17:45)
--- NOTE | 2016-10-19 18:43 | EKG ---
Test Reason : Blood Pressure : / mmHG Vent. Rate : 114 BPM Atrial Rate : 114 BPM P-R Int : 190 ms QRS Dur : 070 ms QT Int : 312 ms P-R-T Axes : 053 023 087 degrees QTc Int : 430 ms SINUS TACHYCARDIA POSSIBLE INFERIOR INFARCT (CITED ON OR BEFORE 22-MAY-2015) ABNORMAL ECG WHEN COMPARED WITH ECG OF 22-MAY-2015 09:01, NO SIGNIFICANT CHANGE WAS FOUND REPEAT EKG IF CLINICALLY INDICATED Confirmed by CHARLIE CASTILLO MD ([id number]) on 10/19/2016 6:42:31 PM Referred By: Confirmed By:CHARLIE CASTILLO MD
[2016-10-19] MEDS ORDERED: PT OWN MED DRAWER 7, Y5N ONE (21:17)
[2016-10-19] MEDS: GABAPENTIN 100 MG CAPSULE (FP) PO SCH (21:26)
[2016-10-19] MEDS: ROSUVASTATIN CA 5 MG TABLET (FP) PO SCH (21:27)
[2016-10-19] MEDS ORDERED: HEMOQUE TEST 1 EACH EACH ONE (21:38)
--- NOTE | 2016-10-19 23:50 | PN ---
Progress Note, Physician History of Present Illness: Pt w/ generalized bodyaches wc he states is due to the bed - Current Medication List Current Medications: Active Medications Aclidinium [place] (Tudorza -) 1 puff IH BID [facility] Last Admin: 10/19/16 21:35 Dose: 1 puff Aspirin (Asa -) 81 mg PO DAILY [facility] Last Admin: 10/19/16 10:04 Dose: 81 mg Budesonide/Formoterol Fumarate (Symbicort 160/4.5mcg -) 1 puff IH BID [facility] Last Admin: 10/19/16 21:43 Dose: 1 puff Ceftriaxone Sodium (Rocephin 1gm Ivpb (Pre-Docked)) 1 gm IVPB DAILY [facility] Last Admin: 10/19/16 10:04 Dose: 1 gm Ferrous Sulfate (Feosol -) 325 mg PO TIDCM [facility] Last Admin: 10/19/16 18:21 Dose: 325 mg Gabapentin (Neurontin -) 200 mg PO TID [facility] Last Admin: 10/19/16 21:26 Dose: 200 mg Heparin Sodium (Porcine) (Heparin -) 5,000 unit SQ BID [facility] Last Admin: 10/19/16 21:26 Dose: 5,000 unit Sodium Chloride (1/2 Normal Saline) 1,000 mls @ 50 mls/hr IV ASDIR [facility] Stop: 10/20/16 17:32 Last Admin: 10/19/16 18:24 Dose: 50 mls/hr Insulin Aspart (Novolog Vial Sliding Scale -) 1 vial SQ ACHS [facility] PRN Reason: Protocol Last Admin: 10/19/16 21:45 Dose: 4 units Insulin Aspart (Novolog Mix 70/30 Vial) 25 units SQ HS [facility] Last Admin: 10/19/16 21:24 Dose: 25 units Insulin Aspart (Novolog Mix 70/30 Vial) 50 units SQ AM [facility] Last Admin: 10/19/16 06:40 Dose: 50 units Nifedipine (Procardia Xl -) 60 mg PO DAILY [facility] Last Admin: 10/19/16 10:04 Dose: 60 mg Ondansetron HCl (Zofran Injection) 8 mg IVPUSH Q6H PRN PRN Reason: NAUSEA AND/OR VOMITING Last Admin: 10/19/16 11:36 Dose: 8 mg Pantoprazole Sodium (Protonix -) 20 mg PO DAILY [facility] Last Admin: 10/19/16 10:04 Dose: 20 mg Rosuvastatin Calcium (Crestor -) 5 mg PO HS [facility] Last Admin: 10/19/16 21:27 Dose: 5 mg Sodium Chloride ([place] Nasal [place] -) 2 spray NS TID PRN PRN Reason: NASAL CONGESTION Last Admin: 10/18/16 22:37 Dose: 2 spray Tamsulosin HCl (Flomax -) 0.4 mg PO DAILY@0830 [facility] Last Admin: 10/19/16 10:04 Dose: 0.4 mg - Objective Vital Signs: Vital Signs Temperature 99.2 F 10/19/16 16:47 Pulse Rate 90 10/19/16 18:00 Respiratory Rate 18 10/19/16 18:00 Blood Pressure 160/93 10/19/16 18:00 O2 Sat by Pulse Oximetry (%) 95 10/19/16 10:20 Constitutional: Yes: Well Nourished HENT: Yes: WNL Neck: Yes: WNL, Supple Cardiovascular: Yes: WNL, Regular Rate and Rhythm Respiratory: Yes: WNL, Regular, CTA Bilaterally Gastrointestinal: Yes: WNL, Normal Bowel Sounds, Soft, Abdomen, Obese Edema: LLE: Trace, RLE: Trace Labs: CBC, BMP 10/19/16 05:20 10/19/16 05:20 INR, PTT INR 0.94 (0.82-1.09) 10/17/16 21:34 Problem List - Problems (1) Acute renal failure Assessment/Plan: Labs improving Pt euvolemic As per renal PT eval Code(s): N17.9 - ACUTE KIDNEY FAILURE, UNSPECIFIED (2) Diabetes Code(s): E11.9 - TYPE 2 DIABETES MELLITUS WITHOUT COMPLICATIONS (3) Hyperlipidemia Code(s): E78.5 - HYPERLIPIDEMIA, UNSPECIFIED (4) Back spasm Code(s): M62.830 - MUSCLE SPASM OF BACK (5) Hypertension Code(s): I10 - ESSENTIAL (PRIMARY) HYPERTENSION Qualifiers: Hypertension type: unspecified Qualified Code(s): I10 - Essential ( primary) hypertension (6) Morbid obesity Code(s): E66.01 - MORBID (SEVERE) OBESITY DUE TO EXCESS CALORIES
[2016-10-20] MEDS ORDERED: ACETAMINOPHEN 325 MG TABLET (FP) ONE (02:32)
[2016-10-20] MEDS: ACETAMINOPHEN 325 MG TABLET (FP) PO PRN ×4 (03:00→23:29)
--- NOTE | 2016-10-20 04:27 | PN ---
Progress Note, Physician Chief Complaint: Pt is alert; denies chest pain or dyspnea; depressed, starts crying when discussing difficulties related to his health. His brother is at bedside. History of Present Illness: The patient is a 45 year old black male with a significant past medical history of morbid obesity, ?sleep apnea, diabetes, HTN, HLD, nephrolithiasis, ?CKD, and COPD who presents to the ED, via EMS, s/p loss of consciousness earlier today. The patient reports he was at home taking care of his nieces when he stood up from his chair and had a loss of consciousness. Patient does not fully recall the episode. He also reports multiple episodes of nonbilious vomiting throughout the day. EMS states patients blood sugar was 216 en route. Patient was recently seen in the ED on 10/14/16 and treated for a kidney stone. Denies fevers. Denies chest pain or shortness of breath. Denies abdominal pain or diarrhea. Denies headache. Denies focal numbness, weakness, or tingling. Denies any other symptoms. - Current Medication List Current Medications: Active Medications Aclidinium [place] (Tudorza -) 1 puff IH BID [facility] Last Admin: 10/19/16 21:35 Dose: 1 puff Aspirin (Asa -) 81 mg PO DAILY [facility] Last Admin: 10/19/16 10:04 Dose: 81 mg Budesonide/Formoterol Fumarate (Symbicort 160/4.5mcg -) 1 puff IH BID [facility] Last Admin: 10/19/16 21:43 Dose: 1 puff Ceftriaxone Sodium (Rocephin 1gm Ivpb (Pre-Docked)) 1 gm IVPB DAILY [facility] Last Admin: 10/19/16 10:04 Dose: 1 gm Ferrous Sulfate (Feosol -) 325 mg PO TIDCM [facility] Last Admin: 10/19/16 18:21 Dose: 325 mg Gabapentin (Neurontin -) 200 mg PO TID [facility] Last Admin: 10/19/16 21:26 Dose: 200 mg Heparin Sodium (Porcine) (Heparin -) 5,000 unit SQ BID [facility] Last Admin: 10/19/16 21:26 Dose: 5,000 unit Sodium Chloride (1/2 Normal Saline) 1,000 mls @ 50 mls/hr IV ASDIR [facility] Stop: 10/20/16 17:32 Last Admin: 10/19/16 18:24 Dose: 50 mls/hr Insulin Aspart (Novolog Vial Sliding Scale -) 1 vial SQ ACHS [facility] PRN Reason: Protocol Last Admin: 10/19/16 21:45 Dose: 4 units Insulin Aspart (Novolog Mix 70/30 Vial) 25 units SQ HS [facility] Last Admin: 10/19/16 21:24 Dose: 25 units Insulin Aspart (Novolog Mix 70/30 Vial) 50 units SQ AM [facility] Last Admin: 10/19/16 06:40 Dose: 50 units Nifedipine (Procardia Xl -) 60 mg PO DAILY [facility] Last Admin: 10/19/16 10:04 Dose: 60 mg Ondansetron HCl (Zofran Injection) 8 mg IVPUSH Q6H PRN PRN Reason: NAUSEA AND/OR VOMITING Last Admin: 10/19/16 11:36 Dose: 8 mg Pantoprazole Sodium (Protonix -) 20 mg PO DAILY [facility] Last Admin: 10/19/16 10:04 Dose: 20 mg Rosuvastatin Calcium (Crestor -) 5 mg PO HS [facility] Last Admin: 10/19/16 21:27 Dose: 5 mg Sodium Chloride ([place] Nasal [place] -) 2 spray NS TID PRN PRN Reason: NASAL CONGESTION Last Admin: 10/18/16 22:37 Dose: 2 spray Tamsulosin HCl (Flomax -) 0.4 mg PO DAILY@0830 [facility] Last Admin: 10/19/16 10:04 Dose: 0.4 mg - Objective Vital Signs: Vital Signs Temperature 98.9 F 10/19/16 22:00 Pulse Rate 77 10/20/16 00:29 Respiratory Rate 14 10/20/16 00:29 Blood Pressure 158/81 10/20/16 00:29 O2 Sat by Pulse Oximetry (%) 98 10/19/16 21:00 Constitutional: Yes: Anxious, Obese Eyes: Yes: WNL HENT: Yes: WNL Neck: Yes: WNL Cardiovascular: Yes: Regular Rate and Rhythm, S1, S2, S4 Respiratory: Yes: Diminished Gastrointestinal: Yes: Abdomen, Obese ...Rectal Exam: Yes: Deferred Genitourinary: No: Anuria Musculoskeletal: Yes: Joint Stiffness, Muscle Weakness Extremities: Yes: Cool Edema: Yes Edema: LLE: 1+, RLE: 1+ Peripheral Pulses WNL: No Peripheral Pulses: Left Doralis Pedis: 1+, Right Dorsalis Pedis: 1+ Integumentary: Yes: Venous Stasis Changes Neurological: Yes: Alert, Oriented Psychiatric: Yes: Alert, Oriented, Other (anxiety/depression) Labs: CBC, BMP 10/19/16 05:20 10/19/16 05:20 INR, PTT INR 0.94 (0.82-1.09) 10/17/16 21:34 Abnormal Lab Results 10/18/16 10/19/16 10/19/16 19:41 05:20 05:20 RBC 3.83 L Hgb 11.1 L Hct 34.7 L Potassium 5.4 H Anion Gap 6 L BUN 58 H Creatinine 3.8 H D Random Glucose 234 H D Calcium 8.2 L Creatine Kinase 649 H CK-MB (CK-2) 6.825 H Albumin 3.2 L Urine Protein 1+ H Urine Glucose (UA) 1+ H Urine Blood 3+ H - ....Imaging Chest X-ray: Image Reviewed (enlarged heart) Other: Image Reviewed (telemetry: NSR) Problem List - Problems (1) Diabetes Code(s): E11.9 - TYPE 2 DIABETES MELLITUS WITHOUT COMPLICATIONS (2) Hyperkalemia Code(s): E87.5 - HYPERKALEMIA (3) Hyperlipidemia Assessment/Plan: on rosuvastatin. F/u fasting lipids, TSH. Code(s): E78.5 - HYPERLIPIDEMIA, UNSPECIFIED (4) Kidney failure Assessment/Plan: F/u with owner consulting engineer; improving BUN/Cr. Code(s): N19 - UNSPECIFIED KIDNEY FAILURE (5) Morbid obesity Assessment/Plan: Pt cries when saying he recently lost over 100 lbs in just a few months when in a special program of diet (and some exercise), but had to stop the program when insurance stopped paying for it. He has discussed gastric bypass surgery in the past years. His brother says he will help him with nutrition and exercise, though the latter is extremely difficult in his present state. Code(s): E66.01 - MORBID (SEVERE) OBESITY DUE TO EXCESS CALORIES (6) Syncope Code(s): R55 - SYNCOPE AND COLLAPSE (7) Tachycardia Code(s): R00.0 - TACHYCARDIA, UNSPECIFIED (8) Acute on chronic respiratory failure with hypoxia and hypercapnia Assessment/Plan: BIPAP; f/u closely with pulmonology. Code(s): J96.21 - ACUTE AND CHRONIC RESPIRATORY FAILURE WITH HYPOXIA J96.22 - ACUTE AND CHRONIC RESPIRATORY FAILURE WITH HYPERCAPNIA (9) Sleep apnea Assessment/Plan: Pt is lethargic; at first he said he was on BiPAP at home for TATI, though noncompliant; later, he seemed to say he was not on the therapy. F/u records; consult with pharmaceutical sales. Code(s): G47.30 - SLEEP APNEA, UNSPECIFIED (10) Diastolic CHF Assessment/Plan: 05/2014 ECHO: normal LVEF: mild-moderate pulmonary HTN. ECHO this admission. Code(s): I50.30 - UNSPECIFIED DIASTOLIC (CONGESTIVE) HEART FAILURE (11) Elevated CK Assessment/Plan: mildly elevated TNI, with low CK/CKMB relative index. total CK > 800. Renal failure; hyperkalemia. When stable: coronary artery workup. Code(s): R74.8 - ABNORMAL LEVELS OF OTHER SERUM ENZYMES (12) Elevated troponin I level Assessment/Plan: 0.11 (0.02 in 05/2015), with low CK/CKMB relative index; no acute ST-T changes on EKG. +Renal failure. F/u fasting lipids. TSH (WNL in 2013). Coronary artery evaluation when stable. Code(s): R74.8 - ABNORMAL LEVELS OF OTHER SERUM ENZYMES
[2016-10-20] MEDS: GABAPENTIN 100 MG CAPSULE (FP) PO SCH ×3 (06:00→21:39)
[2016-10-20 06:06] LABS: BASOPHIL 0.6 % (0-2.0); EOSINOPHIL 2.8 % (0-4.5); MCH 28.7 pg (25.7-33.7); MCHC 31.9 g/dl (32.0-35.9); MEAN CELL VOLUME 89.9 fl (80-96); NEUTROPHILS 71.9 % (42.8-82.8); PLATELET COUNT 248 K/MM3 (134-434); RDW 13.8 % (11.9-15.9); WHITE BLOOD COUNT 7.7 K/mm3 (4.0-10.0)
[2016-10-20] MEDS: INSULIN (NOVOLOG MIX 70/30) 100 UNITS/ML MDV SQ SCH ×2 (06:13→22:08)
[2016-10-20] MEDS: INSULIN SLIDING SCALE (NOVOLOG) 1 VIAL SQ SCH ×4 (06:15→22:09)
[2016-10-20 06:30] LABS: ALBUMIN 3.2 g/dl (3.4-5.0); ANION GAP 6 (8-16); BILIRUBIN,TOTAL 0.8 mg/dL (0.2-1.0); CALCIUM 8.7 mg/dL (8.5-10.1); CO2 32 mmol/L (21-32); CREATININE 2.3 mg/dL (0.7-1.3); GLUCOSE,RANDOM 154 mg/dL (74-106); SGOT/AST 14 U/L (15-37); SGPT/ALT 18 U/L (12-78); TOT PROT 6.5 g/dl (6.4-8.2)
[2016-10-20 06:31] LABS: ALK PHOS 88 U/L (45-117)
[2016-10-20] MEDS ORDERED: HEMOQUE TEST 1 EACH EACH ONE ×2 (07:13→21:43)
[2016-10-20] MEDS: ASPIRIN 81 MG CHEWABLE TABLETS PO SCH (09:14)
[2016-10-20] MEDS: TAMSULOSIN HCL 0.4 MG CAP.ER.24H (FP) PO SCH (09:14)
[2016-10-20] MEDS: FERROUS SO4 325 MG TABLET (FP) PO SCH ×3 (09:14→17:11)
[2016-10-20] MEDS: HEPARIN NA (PORCINE) 5,000 UNITS/ML 1ML VIAL SQ SCH ×2 (09:15→21:38)
[2016-10-20] MEDS: ACLIDINIUM BROMIDE 400 MCG/INH AERO.POWD IH SCH ×2 (09:16→21:41)
[2016-10-20] MEDS: BUDESONIDE/FORMETEROL FUMARATE 160/4.5 mcg INHALER IH SCH ×2 (09:17→21:41)
[2016-10-20] MEDS: cefTRIAXone 1 GM/50 ML BAG (PRE-DOCKED) IVPB SCH (09:18)
[2016-10-20] MEDS: PANTOPRAZOLE 20 MG TABLET (FP) PO SCH (09:21)
[2016-10-20] MEDS: NIFEdipine E.R 60 MG TABLET (UD) PO SCH (09:21)
[2016-10-20 10:24] LABS: CPK 436 IU/L (39-308)
--- NOTE | 2016-10-20 11:13 | PN ---
Progress Note, Physician History of Present Illness: seen and examined today. c/o back pain which is chronic but exacerbated by lying in hospital bed. no overnight events. - Current Medication List Current Medications: Active Medications Acetaminophen (Tylenol -) 650 mg PO Q6H PRN PRN Reason: FEVER OR PAIN Last Admin: 10/20/16 09:19 Dose: 650 mg Aclidinium [place] (Tudorza -) 1 puff IH BID [facility] Last Admin: 10/20/16 09:16 Dose: 1 puff Aspirin (Asa -) 81 mg PO DAILY [facility] Last Admin: 10/20/16 09:14 Dose: 81 mg Budesonide/Formoterol Fumarate (Symbicort 160/4.5mcg -) 1 puff IH BID [facility] Last Admin: 10/20/16 09:17 Dose: 1 puff Ceftriaxone Sodium (Rocephin 1gm Ivpb (Pre-Docked)) 1 gm IVPB DAILY [facility] Last Admin: 10/20/16 09:18 Dose: 1 gm Ferrous Sulfate (Feosol -) 325 mg PO TIDCM [facility] Last Admin: 10/20/16 09:14 Dose: 325 mg Gabapentin (Neurontin -) 200 mg PO TID [facility] Last Admin: 10/20/16 06:00 Dose: 200 mg Heparin Sodium (Porcine) (Heparin -) 5,000 unit SQ BID [facility] Last Admin: 10/20/16 09:15 Dose: 5,000 unit Sodium Chloride (1/2 Normal Saline) 1,000 mls @ 50 mls/hr IV ASDIR [facility] Stop: 10/20/16 17:32 Last Admin: 10/19/16 18:24 Dose: 50 mls/hr Insulin Aspart (Novolog Vial Sliding Scale -) 1 vial SQ ACHS [facility] PRN Reason: Protocol Last Admin: 10/20/16 06:15 Dose: 2 units Insulin Aspart (Novolog Mix 70/30 Vial) 25 units SQ HS [facility] Last Admin: 10/19/16 21:24 Dose: 25 units Insulin Aspart (Novolog Mix 70/30 Vial) 50 units SQ AM [facility] Last Admin: 10/20/16 06:13 Dose: 50 units Nifedipine (Procardia Xl -) 60 mg PO DAILY [facility] Last Admin: 10/20/16 09:21 Dose: 60 mg Ondansetron HCl (Zofran Injection) 8 mg IVPUSH Q6H PRN PRN Reason: NAUSEA AND/OR VOMITING Last Admin: 10/19/16 11:36 Dose: 8 mg Pantoprazole Sodium (Protonix -) 20 mg PO DAILY [facility] Last Admin: 10/20/16 09:21 Dose: 20 mg Rosuvastatin Calcium (Crestor -) 5 mg PO HS [facility] Last Admin: 10/19/16 21:27 Dose: 5 mg Sodium Chloride ([place] Nasal [place] -) 2 spray NS TID PRN PRN Reason: NASAL CONGESTION Last Admin: 10/18/16 22:37 Dose: 2 spray Tamsulosin HCl (Flomax -) 0.4 mg PO DAILY@0830 [facility] Last Admin: 10/20/16 09:14 Dose: 0.4 mg - Objective Vital Signs: Vital Signs Temperature 98.5 F 10/20/16 02:00 Pulse Rate 84 10/20/16 04:00 Respiratory Rate 16 10/20/16 04:00 Blood Pressure 174/85 10/20/16 04:00 O2 Sat by Pulse Oximetry (%) 98 10/19/16 21:00 Constitutional: Yes: No Distress, Calm, Obese Eyes: Yes: Conjunctiva Clear, EOM Intact, PERRL HENT: Yes: Atraumatic, Normocephalic Neck: Yes: Supple, Trachea Midline Cardiovascular: Yes: Regular Rate and Rhythm, S1, S2. No: Bradycardia, Tachycardia, Pulse Irregular, Bruit, JVD, Gallop, Murmur, Rub, S3, S4, Varicosities Respiratory: Yes: Regular, Diminished. No: Rales, Rhonchi, Wheezes Gastrointestinal: Yes: Normal Bowel Sounds, Soft. No: Distention, Tenderness Edema: Yes Edema: LLE: Trace, RLE: Trace Peripheral Pulses WNL: Yes Neurological: Yes: Alert, Oriented Psychiatric: Yes: Alert, Oriented Labs: CBC, BMP 10/20/16 05:15 10/20/16 05:15 INR, PTT INR 0.94 (0.82-1.09) 10/17/16 21:34 - ....Imaging Chest X-ray: Report Reviewed, Image Reviewed EKG: Report Reviewed, Image Reviewed Other: Report Reviewed, Image Reviewed (tele-NSR, no arrhythmias) Assessment/Plan 44 year old man with a history of HTN, HLD, DM, TATI, Obesity hypoventialation on home O2, Pulmonary HTN, TARA of unknown etiology, admitted with syncope, FERMIN on CKD. Syncope-uncertain etiology, likely orthostatic hypotension in the setting of JC , vomiting on day of syncope -f/up echo -carotid doppler showed no sig stenosis -no arrhythmias on telemetry -JC improving with hydration -check orthostatic BP when possible (although will not be accurate at this time after a few days of hydration) Elevated CK-rhabdomyolysis, presumed due to fall after syncope -trending down -elevated troponin very mild and CK out of proportion, unlikely ACS HTN-above goal -cont Procardia XL 60mg daily and uptitrate as needed -hold CARRIE-I/ARB/diuretics for now in setting of JC HLD -cont crestor for now as CK has trended down
--- NOTE | 2016-10-20 13:06 | PN ---
Progress Note, Physician History of Present Illness: patient seen and examined at bedside did not sleep well overnight - Current Medication List Current Medications: Active Medications Acetaminophen (Tylenol -) 650 mg PO Q6H PRN PRN Reason: FEVER OR PAIN Last Admin: 10/20/16 09:19 Dose: 650 mg Aclidinium [place] (Tudorza -) 1 puff IH BID [facility] Last Admin: 10/20/16 09:16 Dose: 1 puff Aspirin (Asa -) 81 mg PO DAILY [facility] Last Admin: 10/20/16 09:14 Dose: 81 mg Budesonide/Formoterol Fumarate (Symbicort 160/4.5mcg -) 1 puff IH BID [facility] Last Admin: 10/20/16 09:17 Dose: 1 puff Ceftriaxone Sodium (Rocephin 1gm Ivpb (Pre-Docked)) 1 gm IVPB DAILY [facility] Last Admin: 10/20/16 09:18 Dose: 1 gm Ferrous Sulfate (Feosol -) 325 mg PO TIDCM [facility] Last Admin: 10/20/16 09:14 Dose: 325 mg Gabapentin (Neurontin -) 200 mg PO TID [facility] Last Admin: 10/20/16 06:00 Dose: 200 mg Heparin Sodium (Porcine) (Heparin -) 5,000 unit SQ BID [facility] Last Admin: 10/20/16 09:15 Dose: 5,000 unit Sodium Chloride (1/2 Normal Saline) 1,000 mls @ 50 mls/hr IV ASDIR [facility] Stop: 10/20/16 17:32 Last Admin: 10/19/16 18:24 Dose: 50 mls/hr Insulin Aspart (Novolog Vial Sliding Scale -) 1 vial SQ ACHS [facility] PRN Reason: Protocol Last Admin: 10/20/16 06:15 Dose: 2 units Insulin Aspart (Novolog Mix 70/30 Vial) 25 units SQ HS [facility] Last Admin: 10/19/16 21:24 Dose: 25 units Insulin Aspart (Novolog Mix 70/30 Vial) 50 units SQ AM [facility] Last Admin: 10/20/16 06:13 Dose: 50 units Nifedipine (Procardia Xl -) 60 mg PO DAILY [facility] Last Admin: 10/20/16 09:21 Dose: 60 mg Ondansetron HCl (Zofran Injection) 8 mg IVPUSH Q6H PRN PRN Reason: NAUSEA AND/OR VOMITING Last Admin: 10/19/16 11:36 Dose: 8 mg Pantoprazole Sodium (Protonix -) 20 mg PO DAILY [facility] Last Admin: 10/20/16 09:21 Dose: 20 mg Rosuvastatin Calcium (Crestor -) 5 mg PO HS [facility] Last Admin: 10/19/16 21:27 Dose: 5 mg Sodium Chloride ([place]al [place] -) 2 spray NS TID PRN PRN Reason: NASAL CONGESTION Last Admin: 10/18/16 22:37 Dose: 2 spray Tamsulosin HCl (Flomax -) 0.4 mg PO DAILY@0830 [facility] Last Admin: 10/20/16 09:14 Dose: 0.4 mg - Objective Vital Signs: Vital Signs Temperature 98.5 F 10/20/16 02:00 Pulse Rate 84 10/20/16 04:00 Respiratory Rate 16 10/20/16 09:00 Blood Pressure 174/85 10/20/16 04:00 O2 Sat by Pulse Oximetry (%) 98 10/19/16 21:00 Constitutional: Yes: No Distress, Obese Eyes: Yes: Conjunctiva Clear Neck: Yes: Supple Cardiovascular: Yes: Regular Rate and Rhythm, S1, S2. No: Murmur Respiratory: Yes: Diminished Gastrointestinal: Yes: Soft, Abdomen, Obese Genitourinary: Yes: Ibrahim Present Edema: Yes (trace b/l LE edema ) Neurological: Yes: Alert, Oriented Psychiatric: Yes: Alert, Oriented Labs: CBC, BMP 10/20/16 05:15 10/20/16 05:15 INR, PTT INR 0.94 (0.82-1.09) 10/17/16 21:34 Assessment/Plan 45M with PMHx of HTN, DMII, CHF, Pulm HTN and morbid obesity who was BIBEMS from home after he acutely syncopized and became unresponsive. sybcopized likely secondary to hypovolemia from nausea and vomiting. FERMIN Likely from volume depletion. Acute kidney injury: Likely pre-renal azotemia as Cr trending down with IVF fluids nephro0=logy consult appreciated. Trend BMP and UOP Fluid boluses PRN Ceftriaxone started by primary team for UTI empiric coverage Hyperkalemia: Resolved Trend potassium HTN: Cardiology consult appreciated will continue to trend uptitrate procardia to 90 daily CHF: Troponinemia likely secondary to demand-CK increased out of proportion to troponin cardiology consult appreciated will stop trending troponins TATI/Pulm HTN: Continue to sleep with CPAP machine HLD: continue statin Endo: DMII Fing[place] ACHS Continue insulin COPD: continue tudorza continue symbicort Morbid obesity: Weight loss surgery and lifestyle modification discussed with patient FEN: 1/2NS @ 50ml/hr per nephrology no electrolyte issues diabetic/low sodium diet PPx: HSQ/SCDs Protonix PT consult -OK for transfer to floor.
[2016-10-20] MEDS ORDERED: NIFEdipine E.R 60 MG TABLET (UD) PO SCH (13:15)
[2016-10-20] MEDS ORDERED: NIFEdipine E.R. 30 MG TABLET (FP) PO ONE (13:30)
--- NOTE | 2016-10-20 15:22 | PN ---
Progress Note, Physician History of Present Illness: Pt seen and examined at bedside. He is more awake and alert today. He is tolerating diet. - Current Medication List Current Medications: Active Medications Acetaminophen (Tylenol -) 650 mg PO Q6H PRN PRN Reason: FEVER OR PAIN Last Admin: 10/20/16 09:19 Dose: 650 mg Aclidinium [place] (Tudorza -) 1 puff IH BID [facility] Last Admin: 10/20/16 09:16 Dose: 1 puff Aspirin (Asa -) 81 mg PO DAILY [facility] Last Admin: 10/20/16 09:14 Dose: 81 mg Budesonide/Formoterol Fumarate (Symbicort 160/4.5mcg -) 1 puff IH BID [facility] Last Admin: 10/20/16 09:17 Dose: 1 puff Ceftriaxone Sodium (Rocephin 1gm Ivpb (Pre-Docked)) 1 gm IVPB DAILY [facility] Last Admin: 10/20/16 09:18 Dose: 1 gm Ferrous Sulfate (Feosol -) 325 mg PO TIDCM [facility] Last Admin: 10/20/16 13:51 Dose: 325 mg Gabapentin (Neurontin -) 200 mg PO TID [facility] Last Admin: 10/20/16 13:49 Dose: 200 mg Heparin Sodium (Porcine) (Heparin -) 5,000 unit SQ BID [facility] Last Admin: 10/20/16 09:15 Dose: 5,000 unit Sodium Chloride (1/2 Normal Saline) 1,000 mls @ 50 mls/hr IV ASDIR [facility] Stop: 10/20/16 17:32 Last Admin: 10/19/16 18:24 Dose: 50 mls/hr Insulin Aspart (Novolog Vial Sliding Scale -) 1 vial SQ ACHS [facility] PRN Reason: Protocol Last Admin: 10/20/16 13:50 Dose: 2 units Insulin Aspart (Novolog Mix 70/30 Vial) 25 units SQ HS [facility] Last Admin: 10/19/16 21:24 Dose: 25 units Insulin Aspart (Novolog Mix 70/30 Vial) 50 units SQ AM [facility] Last Admin: 10/20/16 06:13 Dose: 50 units Nifedipine (Procardia Xl -) 90 mg PO DAILY [facility] Ondansetron HCl (Zofran Injection) 8 mg IVPUSH Q6H PRN PRN Reason: NAUSEA AND/OR VOMITING Last Admin: 10/19/16 11:36 Dose: 8 mg Pantoprazole Sodium (Protonix -) 20 mg PO DAILY [facility] Last Admin: 10/20/16 09:21 Dose: 20 mg Rosuvastatin Calcium (Crestor -) 5 mg PO HS [facility] Last Admin: 10/19/16 21:27 Dose: 5 mg Sodium Chloride ([place]al [place] -) 2 spray NS TID PRN PRN Reason: NASAL CONGESTION Last Admin: 10/18/16 22:37 Dose: 2 spray Tamsulosin HCl (Flomax -) 0.4 mg PO DAILY@0830 [facility] Last Admin: 10/20/16 09:14 Dose: 0.4 mg - Objective Vital Signs: Vital Signs Temperature 98.5 F 10/20/16 02:00 Pulse Rate 84 10/20/16 04:00 Respiratory Rate 16 10/20/16 09:00 Blood Pressure 174/85 10/20/16 04:00 O2 Sat by Pulse Oximetry (%) 98 10/19/16 21:00 Constitutional: Yes: Calm Eyes: Yes: Conjunctiva Clear HENT: Yes: Atraumatic Neck: Yes: Supple Cardiovascular: Yes: S1, S2 Respiratory: Yes: On Nasal O2 Gastrointestinal: Yes: Soft, Abdomen, Obese Genitourinary: Yes: WNL Musculoskeletal: Yes: WNL Edema: Yes Edema: LLE: Trace, RLE: Trace Neurological: Yes: Oriented Psychiatric: Yes: Oriented Labs: CBC, BMP 10/20/16 05:15 10/20/16 05:15 INR, PTT INR 0.94 (0.82-1.09) 10/17/16 21:34 Problem List - Problems (1) Diabetes Code(s): E11.9 - TYPE 2 DIABETES MELLITUS WITHOUT COMPLICATIONS (2) Hyperkalemia Code(s): E87.5 - HYPERKALEMIA (3) Hyperlipidemia Code(s): E78.5 - HYPERLIPIDEMIA, UNSPECIFIED (4) Kidney failure Code(s): N19 - UNSPECIFIED KIDNEY FAILURE (5) Morbid obesity Code(s): E66.01 - MORBID (SEVERE) OBESITY DUE TO EXCESS CALORIES Assessment/Plan Current Medications Generic Name Dose Route Start Last Admin Trade Name Freq PRN Reason Stop Dose Admin Acetaminophen 650 mg 10/20/16 05:54 10/20/16 09:19 Tylenol - PO 650 mg Q6H PRN Administration FEVER OR PAIN Aclidinium [place] 1 puff 10/18/16 10:00 10/20/16 09:16 Tudorza - IH 1 puff BID [facility] Administration Aspirin 81 mg 10/18/16 10:00 10/20/16 09:14 Asa - PO 81 mg DAILY [facility] Administration Budesonide/Formoterol Fumarate 1 puff 10/18/16 10:00 10/20/16 09:17 Symbicort 160/4.5mcg - IH 1 puff BID [facility] Administration Ceftriaxone Sodium 1 gm 10/18/16 02:30 10/20/16 09:18 Rocephin 1gm Ivpb (Pre-Docked) IVPB 1 gm DAILY [facility] Administration Ferrous Sulfate 325 mg 10/18/16 08:00 10/20/16 13:51 Feosol - PO 325 mg TIDCM [facility] Administration Gabapentin 200 mg 10/19/16 22:00 10/20/16 13:49 Neurontin - PO 200 mg TID [facility] Administration Heparin Sodium (Porcine) 5,000 unit 10/18/16 10:00 10/20/16 09:15 Heparin - SQ 5,000 unit BID [facility] Administration Sodium Chloride 1,000 mls @ 50 mls/hr 10/19/16 17:45 10/19/16 18:24 1/2 Normal Saline IV 10/20/16 17:32 50 mls/hr ASDIR [facility] Administration Insulin Aspart 1 vial 10/18/16 07:00 10/20/16 13:50 Novolog Vial Sliding Scale - SQ 2 units ACHS [facility] Administration Protocol Insulin Aspart 25 units 10/18/16 22:30 10/19/16 21:24 Novolog Mix 70/30 Vial SQ 25 units HS [facility] Administration Insulin Aspart 50 units 10/19/16 07:00 10/20/16 06:13 Novolog Mix 70/30 Vial SQ 50 units AM [facility] Administration Nifedipine 90 mg 10/21/16 10:00 Procardia Xl - PO DAILY [facility] Ondansetron HCl 8 mg 10/19/16 11:28 10/19/16 11:36 Zofran Injection IVPUSH 8 mg Q6H PRN Administration NAUSEA AND/OR VOMITING Pantoprazole Sodium 20 mg 10/18/16 10:00 10/20/16 09:21 Protonix - PO 20 mg DAILY [facility] Administration Rosuvastatin Calcium 5 mg 10/18/16 22:00 10/19/16 21:27 Crestor - PO 5 mg HS [facility] Administration Sodium Chloride 2 spray 10/18/16 20:33 10/18/16 22:37 [place] Nasal [place] - NS 2 spray TID PRN Administration NASAL CONGESTION Tamsulosin HCl 0.4 mg 10/18/16 08:30 10/20/16 09:14 Flomax - PO 0.4 mg DAILY@0830 [facility] Administration Laboratory Tests 10/18/16 10/19/16 19:41 05:20 Urine Protein 1+ H Urine Blood 3+ H GORDON Screen Pending c-ANCA Pending Proteinase 3 (PR3) Pending p-ANCA Pending Atypical p-ANCA Pending Myeloperoxidase Ab Pending Impression 1. FERMIN 2. hyperkalemia 3. morbid obesity 4. DM 5. HTN 6. likely sleep apnea 7. syncope 8. rhabdo Plan - cont with fluids - ck improving - renal function improving - follow renal workup - recommend weigh loss - please do not give nsaids - adjust gabapentin dose for renal function - he will need outpt follow up as well Dr Martin
--- NOTE | 2016-10-20 15:44 | PN ---
Teaching Attending Note Name of Resident: Agapito Saucedo ATTENDING PHYSICIAN STATEMENT I saw and evaluated the patient. I reviewed the resident's note and discussed the case with the resident. I agree with the resident's findings and plan as documented. SUBJECTIVE: Patient seen and examined in the ICU. Awake and alert. Denies CP or SOB. Generalized muscle ache (from the bed??) Intake & Output 10/17/16 10/18/16 10/19/16 10/20/16 23:59 23:59 23:59 23:59 Intake Total 2480 840 970 Output Total 1600 4000 1500 Balance 880 -3160 -530 Weight 500 lb 433 lb 434 lb 4.97 oz 435 lb Last Vital Signs Temp Pulse Resp BP Pulse Ox 98.5 F 84 16 174/85 98 10/20/16 02:00 10/20/16 04:00 10/20/16 09:00 10/20/16 04:00 10/19/16 21:00 Active Medications Acetaminophen (Tylenol -) 650 mg PO Q6H PRN PRN Reason: FEVER OR PAIN Last Admin: 10/20/16 09:19 Dose: 650 mg Aclidinium [place] (Tudorza -) 1 puff IH BID [facility] Last Admin: 10/20/16 09:16 Dose: 1 puff Aspirin (Asa -) 81 mg PO DAILY [facility] Last Admin: 10/20/16 09:14 Dose: 81 mg Budesonide/Formoterol Fumarate (Symbicort 160/4.5mcg -) 1 puff IH BID [facility] Last Admin: 10/20/16 09:17 Dose: 1 puff Ceftriaxone Sodium (Rocephin 1gm Ivpb (Pre-Docked)) 1 gm IVPB DAILY [facility] Last Admin: 10/20/16 09:18 Dose: 1 gm Ferrous Sulfate (Feosol -) 325 mg PO TIDCM [facility] Last Admin: 10/20/16 13:51 Dose: 325 mg Gabapentin (Neurontin -) 200 mg PO TID [facility] Last Admin: 10/20/16 13:49 Dose: 200 mg Heparin Sodium (Porcine) (Heparin -) 5,000 unit SQ BID [facility] Last Admin: 10/20/16 09:15 Dose: 5,000 unit Sodium Chloride (1/2 Normal Saline) 1,000 mls @ 50 mls/hr IV ASDIR [facility] Stop: 10/20/16 17:32 Last Admin: 10/19/16 18:24 Dose: 50 mls/hr Insulin Aspart (Novolog Vial Sliding Scale -) 1 vial SQ ACHS [facility] PRN Reason: Protocol Last Admin: 10/20/16 13:50 Dose: 2 units Insulin Aspart (Novolog Mix 70/30 Vial) 25 units SQ HS [facility] Last Admin: 10/19/16 21:24 Dose: 25 units Insulin Aspart (Novolog Mix 70/30 Vial) 50 units SQ AM [facility] Last Admin: 10/20/16 06:13 Dose: 50 units Nifedipine (Procardia Xl -) 90 mg PO DAILY [facility] Ondansetron HCl (Zofran Injection) 8 mg IVPUSH Q6H PRN PRN Reason: NAUSEA AND/OR VOMITING Last Admin: 10/19/16 11:36 Dose: 8 mg Pantoprazole Sodium (Protonix -) 20 mg PO DAILY [facility] Last Admin: 10/20/16 09:21 Dose: 20 mg Rosuvastatin Calcium (Crestor -) 5 mg PO [facility] Last Admin: 10/19/16 21:27 Dose: 5 mg Sodium Chloride ([place] Nasal [place] -) 2 spray NS TID PRN PRN Reason: NASAL CONGESTION Last Admin: 10/18/16 22:37 Dose: 2 spray Tamsulosin HCl (Flomax -) 0.4 mg PO DAILY@0830 [facility] Last Admin: 10/20/16 09:14 Dose: 0.4 mg Constitutional: Yes: Awake and alert, NAD Eyes: Yes: Conjunctiva Clear HENT: Yes: Atraumatic Neck: Yes: Supple Cardiovascular: Yes: S1, S2 Respiratory: Yes: On Nasal O2 Gastrointestinal: Yes: Soft, Abdomen, Obese Genitourinary: Yes: WNL Musculoskeletal: Yes: Other (obese extremities) Edema: Yes Edema: LLE: Trace, RLE: Trace Neurological: Yes: Oriented Psychiatric: Yes: Oriented Labs: Laboratory Results - last 24 hr 10/19/16 10/19/16 10/20/16 18:28 21:43 05:07 WBC RBC Hgb Hct MCV MCH MCHC RDW Plt Count MPV Neutrophils % Lymphocytes % Monocytes % Eosinophils % Basophils % Sodium Potassium Chloride Carbon Dioxide Anion Gap BUN Creatinine Creat Clearance w eGFR POC Glucometer 235.68849 245.45133 [phone] Random Glucose Calcium Total Bilirubin AST ALT Alkaline Phosphatase Creatine Kinase Creatine Kinase Index CK-MB (CK-2) Total Protein Albumin 10/20/16 10/20/16 10/20/16 05:15 05:15 07:00 WBC 7.7 RBC 3.77 L Hgb 10.8 L Hct 33.9 L MCV 89.9 MCH 28.7 MCHC 31.9 L RDW 13.8 Plt Count 248 MPV 8.0 Neutrophils % 71.9 Lymphocytes % 14.1 Monocytes % 10.6 H Eosinophils % 2.8 Basophils % 0.6 Sodium 141 Potassium 5.0 Chloride 103 Carbon Dioxide 32 Anion Gap 6 L BUN 45 H D Creatinine 2.3 H D Creat Clearance w eGFR 30.63 POC Glucometer Random Glucose 154 H D Calcium 8.7 Total Bilirubin 0.8 AST 14 L ALT 18 Alkaline Phosphatase 88 Creatine Kinase 436 H Cancelled Creatine Kinase Index 1.0 CK-MB (CK-2) 4.408 H Total Protein 6.5 Albumin 3.2 L Assessment/Plan Diabetes Mellitus Diastolic CHF Elevated CK / Elevated troponin I level Hyperkalemia Hyperlipidemia FERMIN Morbid obesity Syncope Tachycardia UTI OSAS (severity not known) Plan: IVF I&O Follow K+ f/u cultures Noted empiric Ceftriaxone for empiric UTI coverage BD TX O2 as needed NIPPV as needed Will need for sleep workup after discharge Titrate BP meds with monitoring of BP Glycemic control Floor Dr Vásquez
[2016-10-20] MEDS: ROSUVASTATIN CA 5 MG TABLET (FP) PO SCH (21:40)
[2016-10-20] MEDS ORDERED: PT OWN MED DRAWER 7, Y5N ONE (21:40)
[2016-10-21] MEDS ORDERED: ONDANSETRON 4 MG/2 ML VIAL IVPUSH PRN (00:31)
[2016-10-21] MEDS ORDERED: SODIUM CHLORIDE NASAL SPRAY 44 ML BOTTLE NS PRN (00:31)
--- NOTE | 2016-10-21 01:56 | PN ---
Progress Note, Physician History of Present Illness: Pt seen and examined 10/20/16 however note is being entered late - Current Medication List Current Medications: Active Medications Acetaminophen (Tylenol -) 650 mg PO Q6H PRN PRN Reason: FEVER OR PAIN Aclidinium [place] (Tudorza -) 1 puff IH BID [facility] Aspirin (Asa -) 81 mg PO DAILY [facility] Budesonide/Formoterol Fumarate (Symbicort 160/4.5mcg -) 1 puff IH BID [facility] Ferrous Sulfate (Feosol -) 325 mg PO TIDCM [facility] Gabapentin (Neurontin -) 200 mg PO TID [facility] Heparin Sodium (Porcine) (Heparin -) 5,000 unit SQ BID [facility] Ceftriaxone Sodium 1 gm/ (Dextrose) 50 mls @ 100 mls/hr IVPB DAILY [facility] Insulin Aspart (Novolog Mix 70/30 Vial) 50 units SQ AM [facility] Insulin Aspart (Novolog Mix 70/30 Vial) 25 units SQ HS [facility] Insulin Aspart (Novolog Vial Sliding Scale -) 1 vial SQ ACHS [facility] PRN Reason: Protocol Nifedipine (Procardia Xl -) 90 mg PO DAILY [facility] Ondansetron HCl (Zofran Injection) 8 mg IVPUSH Q6H PRN PRN Reason: NAUSEA AND/OR VOMITING Pantoprazole Sodium (Protonix -) 20 mg PO DAILY [facility] Rosuvastatin Calcium (Crestor -) 5 mg PO HS [facility] Sodium Chloride ([place] Nasal [place] -) 2 spray NS TID PRN PRN Reason: NASAL CONGESTION Tamsulosin HCl (Flomax -) 0.4 mg PO DAILY@0830 [facility] - Objective Vital Signs: Vital Signs Temperature 98.5 F 10/20/16 02:00 Pulse Rate 79 10/20/16 21:00 Respiratory Rate 20 10/20/16 21:00 Blood Pressure 161/98 10/20/16 21:00 O2 Sat by Pulse Oximetry (%) 98 10/20/16 22:34 Labs: CBC, BMP 10/20/16 05:15 10/20/16 05:15 INR, PTT INR 0.94 (0.82-1.09) 10/17/16 21:34 Problem List - Problems (1) Acute renal failure Code(s): N17.9 - ACUTE KIDNEY FAILURE, UNSPECIFIED (2) Diabetes Code(s): E11.9 - TYPE 2 DIABETES MELLITUS WITHOUT COMPLICATIONS (3) Hyperlipidemia Code(s): E78.5 - HYPERLIPIDEMIA, UNSPECIFIED (4) Back spasm Code(s): M62.830 - MUSCLE SPASM OF BACK (5) Hypertension Code(s): I10 - ESSENTIAL (PRIMARY) HYPERTENSION Qualifiers: Hypertension type: unspecified Qualified Code(s): I10 - Essential ( primary) hypertension (6) Morbid obesity Code(s): E66.01 - MORBID (SEVERE) OBESITY DUE TO EXCESS CALORIES
[2016-10-21] MEDS: GABAPENTIN 100 MG CAPSULE (FP) PO SCH ×3 (05:59→21:52)
[2016-10-21] MEDS: INSULIN SLIDING SCALE (NOVOLOG) 1 VIAL SQ SCH ×4 (06:00→21:58)
[2016-10-21] MEDS: INSULIN (NOVOLOG MIX 70/30) 100 UNITS/ML MDV SQ SCH (06:11)
[2016-10-21] MEDS: TAMSULOSIN HCL 0.4 MG CAP.ER.24H (FP) PO SCH (07:56)
[2016-10-21] MEDS: ACETAMINOPHEN 325 MG TABLET (FP) PO PRN ×3 (07:56→21:53)
[2016-10-21] MEDS: FERROUS SO4 325 MG TABLET (FP) PO SCH ×3 (07:57→17:41)
[2016-10-21 08:05] LABS: MCH 29.2 pg (25.7-33.7); MCHC 32.3 g/dl (32.0-35.9); MEAN CELL VOLUME 90.4 fl (80-96); MEAN PLT VOLUME 8.1 fl (7.5-11.1); PLATELET COUNT 248 K/MM3 (134-434); RDW 13.9 % (11.9-15.9); WHITE BLOOD COUNT 7.2 K/mm3 (4.0-10.0)
[2016-10-21 08:51] LABS: ALBUMIN 3.1 g/dl (3.4-5.0); ALK PHOS 88 U/L (45-117); ANION GAP 4 (8-16); BILIRUBIN,TOTAL 0.9 mg/dL (0.2-1.0); CO2 31 mmol/L (21-32); CREATININE 1.8 mg/dL (0.7-1.3); GLUCOSE,RANDOM 116 mg/dL (74-106); MAGNESIUM 2.1 mg/dL (1.8-2.4); PHOSPHOROUS 2.2 mg/dL (2.5-4.9); SGOT/AST 19 U/L (15-37); SGPT/ALT 18 U/L (12-78); TOT PROT 6.6 g/dl (6.4-8.2)
[2016-10-21] MEDS ORDERED: cefTRIAXone 1 GM/50 ML BAG (PRE-DOCKED) IVPB SCH (10:00)
[2016-10-21] MEDS ORDERED: CEFTRIAXONE 1 GM in DEXTROSE 5%-WATER - 50 ML IVPB SCH (10:00)
--- NOTE | 2016-10-21 10:44 | PN ---
Progress Note, Physician Chief Complaint: c/o chest pain: epigastric, reproducible on exam No SOB above baseline, denies nausea No diaphoresis. - Current Medication List Current Medications: Active Medications Acetaminophen (Tylenol -) 650 mg PO Q6H PRN PRN Reason: FEVER OR PAIN Last Admin: 10/21/16 07:56 Dose: 650 mg Aclidinium [place] (Tudorza -) 1 puff IH BID [facility] Aspirin (Asa -) 81 mg PO DAILY [facility] Budesonide/Formoterol Fumarate (Symbicort 160/4.5mcg -) 1 puff IH BID [facility] Ferrous Sulfate (Feosol -) 325 mg PO TIDCM [facility] Last Admin: 10/21/16 07:57 Dose: 325 mg Gabapentin (Neurontin -) 200 mg PO TID [facility] Last Admin: 10/21/16 05:59 Dose: 200 mg Heparin Sodium (Porcine) (Heparin -) 5,000 unit SQ BID [facility] Ceftriaxone Sodium 1 gm/ (Dextrose) 50 mls @ 100 mls/hr IVPB DAILY [facility] Insulin Aspart (Novolog Mix 70/30 Vial) 50 units SQ AM [facility] Last Admin: 10/21/16 06:11 Dose: 50 units Insulin Aspart (Novolog Mix 70/30 Vial) 25 units SQ HS [facility] Insulin Aspart (Novolog Vial Sliding Scale -) 1 vial SQ ACHS [facility] PRN Reason: Protocol Last Admin: 10/21/16 06:00 Dose: Not Given Nifedipine (Procardia Xl -) 90 mg PO DAILY [facility] Ondansetron HCl (Zofran Injection) 8 mg IVPUSH Q6H PRN PRN Reason: NAUSEA AND/OR VOMITING Pantoprazole Sodium (Protonix -) 20 mg PO DAILY [facility] Rosuvastatin Calcium (Crestor -) 5 mg PO HS [facility] Sodium Chloride ([place] Nasal [place] -) 2 spray NS TID PRN PRN Reason: NASAL CONGESTION Tamsulosin HCl (Flomax -) 0.4 mg PO DAILY@0830 [facility] Last Admin: 10/21/16 07:56 Dose: 0.4 mg - Objective Vital Signs: Vital Signs Temperature 98.6 F 10/21/16 06:10 Pulse Rate 79 10/21/16 06:19 Respiratory Rate 20 10/20/16 21:00 Blood Pressure 179/103 10/21/16 06:19 O2 Sat by Pulse Oximetry (%) 98 10/20/16 22:34 Constitutional: Yes: No Distress HENT: Yes: Atraumatic Cardiovascular: Yes: Regular Rate and Rhythm Respiratory: Yes: CTA Bilaterally Gastrointestinal: Yes: Soft, Abdomen, Obese, Other (discrete area of reproducible pain upper epigastric region/lower part sternum) Edema: Yes Edema: LLE: 1+, RLE: 1+ Neurological: Yes: Alert, Oriented ...Motor Strength: WNL Labs: CBC, BMP 10/21/16 07:00 10/21/16 07:30 INR, PTT INR 0.94 (0.82-1.09) 10/17/16 21:34 - ....Imaging EKG: Pending Assessment/Plan Assessment/Plan 44 year old man with a history of HTN, HLD, DM, TATI, Obesity hypoventialation on home O2, Pulmonary HTN, TARA of unknown etiology, admitted with syncope, FERMIN on CKD. Syncope-uncertain etiology, likely orthostatic hypotension in the setting of JC , vomiting on day of syncope -echo w/ normal LVEF -carotid doppler showed no sig stenosis -no arrhythmias on telemetry -JC improving with hydration Elevated CK-rhabdomyolysis, presumed due to fall after syncope -trending down -elevated troponin very mild and CK out of proportion, unlikely ACS HTN-above goal -Procardia XL titrated to 90mg daily -hold CARRIE-I/ARB/diuretics for now in setting of JC HLD -cont crestor for now as CK has trended down Atypical CP: -reproducible on exam; likely musculoskeletal -Will check ECG and cycle TnI x 2 sets
[2016-10-21] MEDS ORDERED: cefTRIAXone SODIUM 1 GM VIAL ONE (11:08)
[2016-10-21] MEDS ORDERED: DEXTROSE 5%-WATER - 50 ML IVPB ONE (11:09)
[2016-10-21] MEDS: HEPARIN NA (PORCINE) 5,000 UNITS/ML 1ML VIAL SQ SCH ×2 (11:14→21:52)
[2016-10-21] MEDS: ASPIRIN 81 MG CHEWABLE TABLETS PO SCH (11:14)
[2016-10-21] MEDS: PANTOPRAZOLE 20 MG TABLET (FP) PO SCH (11:14)
[2016-10-21] MEDS: ACLIDINIUM BROMIDE 400 MCG/INH AERO.POWD IH SCH ×2 (11:18→21:58)
[2016-10-21] MEDS: BUDESONIDE/FORMETEROL FUMARATE 160/4.5 mcg INHALER IH SCH ×2 (11:18→21:58)
[2016-10-21 11:57] LABS: TROPONIN I 0.03 ng/ml (0.00-0.05)
--- NOTE | 2016-10-21 11:58 | EKG ---
Test Reason : Blood Pressure : / mmHG Vent. Rate : 080 BPM Atrial Rate : 080 BPM P-R Int : 198 ms QRS Dur : 080 ms QT Int : 388 ms P-R-T Axes : 010 008 035 degrees QTc Int : 447 ms NORMAL SINUS RHYTHM NORMAL ECG WHEN COMPARED WITH ECG OF 17-OCT-2016 21:31, NO SIGNIFICANT CHANGE WAS FOUND Confirmed by CHARLIE CASTILLO MD ([id number]) on 10/21/2016 11:58:20 AM Referred By: Terry CORONA Confirmed By:CHARLIE CASTILLO MD
[2016-10-21 12:01] LABS: CPK 533 IU/L (39-308)
[2016-10-21] MEDS: NIFEdipine E.R. 90 MG TABLET (FP) PO SCH (12:34)
--- NOTE | 2016-10-21 16:11 | PN ---
Progress Note, Physician History of Present Illness: Pt seen and examined at bedside. He is awake and alert. He had chest pain earlier and is getting his cardiac enzymes checked. He denies shortness of breath. - Current Medication List Current Medications: Active Medications Acetaminophen (Tylenol -) 650 mg PO Q6H PRN PRN Reason: FEVER OR PAIN Last Admin: 10/21/16 13:11 Dose: 650 mg Aclidinium [place] (Tudorza -) 1 puff IH BID [facility] Last Admin: 10/21/16 11:18 Dose: 1 puff Aspirin (Asa -) 81 mg PO DAILY [facility] Last Admin: 10/21/16 11:14 Dose: 81 mg Budesonide/Formoterol Fumarate (Symbicort 160/4.5mcg -) 1 puff IH BID [facility] Last Admin: 10/21/16 11:18 Dose: 1 puff Ferrous Sulfate (Feosol -) 325 mg PO TIDCM [facility] Last Admin: 10/21/16 13:08 Dose: 325 mg Gabapentin (Neurontin -) 200 mg PO TID [facility] Last Admin: 10/21/16 13:11 Dose: 200 mg Heparin Sodium (Porcine) (Heparin -) 5,000 unit SQ BID [facility] Last Admin: 10/21/16 11:14 Dose: 5,000 unit Ceftriaxone Sodium 1 gm/ (Dextrose) 50 mls @ 100 mls/hr IVPB DAILY [facility] Last Admin: 10/21/16 11:15 Dose: 100 mls/hr Insulin Aspart (Novolog Mix 70/30 Vial) 50 units SQ AM [facility] Last Admin: 10/21/16 06:11 Dose: 50 units Insulin Aspart (Novolog Mix 70/30 Vial) 25 units SQ HS [facility] Insulin Aspart (Novolog Vial Sliding Scale -) 1 vial SQ ACHS [facility] PRN Reason: Protocol Last Admin: 10/21/16 12:12 Dose: Not Given Nifedipine (Procardia Xl -) 90 mg PO DAILY [facility] Last Admin: 10/21/16 12:34 Dose: 90 mg Ondansetron HCl (Zofran Injection) 8 mg IVPUSH Q6H PRN PRN Reason: NAUSEA AND/OR VOMITING Pantoprazole Sodium (Protonix -) 20 mg PO DAILY [facility] Last Admin: 10/21/16 11:14 Dose: 20 mg Rosuvastatin Calcium (Crestor -) 5 mg PO HS [facility] Sodium Chloride ([place] Nasal [place] -) 2 spray NS TID PRN PRN Reason: NASAL CONGESTION Last Admin: 10/21/16 11:16 Dose: 2 spray Tamsulosin HCl (Flomax -) 0.4 mg PO DAILY@0830 [facility] Last Admin: 10/21/16 07:56 Dose: 0.4 mg - Objective Vital Signs: Vital Signs Temperature 98.4 F 10/21/16 14:42 Pulse Rate 83 10/21/16 14:42 Respiratory Rate 18 10/21/16 14:42 Blood Pressure 163/101 10/21/16 14:42 O2 Sat by Pulse Oximetry (%) 98 10/20/16 22:34 Constitutional: Yes: Calm Eyes: Yes: Conjunctiva Clear HENT: Yes: Atraumatic Cardiovascular: Yes: S1, S2 Respiratory: Yes: On Nasal O2 Gastrointestinal: Yes: Abdomen, Obese Musculoskeletal: Yes: WNL, Muscle Weakness Edema: Yes Edema: LLE: Trace, RLE: Trace Neurological: Yes: Oriented Psychiatric: Yes: Oriented Labs: CBC, BMP 10/21/16 07:00 10/21/16 07:30 INR, PTT INR 0.94 (0.82-1.09) 10/17/16 21:34 Problem List - Problems (1) Diabetes Code(s): E11.9 - TYPE 2 DIABETES MELLITUS WITHOUT COMPLICATIONS (2) Hyperkalemia Code(s): E87.5 - HYPERKALEMIA (3) Hyperlipidemia Code(s): E78.5 - HYPERLIPIDEMIA, UNSPECIFIED (4) Kidney failure Code(s): N19 - UNSPECIFIED KIDNEY FAILURE (5) Morbid obesity Code(s): E66.01 - MORBID (SEVERE) OBESITY DUE TO EXCESS CALORIES Assessment/Plan Current Medications Generic Name Dose Route Start Last Admin Trade Name Freq PRN Reason Stop Dose Admin Acetaminophen 650 mg 10/21/16 00:31 10/21/16 13:11 Tylenol - PO 650 mg Q6H PRN Administration FEVER OR PAIN Aclidinium [place] 1 puff 10/21/16 10:00 10/21/16 11:18 Tudorza - IH 1 puff BID [facility] Administration Aspirin 81 mg 10/21/16 10:00 10/21/16 11:14 Asa - PO 81 mg DAILY [facility] Administration Budesonide/Formoterol Fumarate 1 puff 10/21/16 10:00 10/21/16 11:18 Symbicort 160/4.5mcg - IH 1 puff BID [facility] Administration Ferrous Sulfate 325 mg 10/21/16 08:00 10/21/16 13:08 Feosol - PO 325 mg TIDCM [facility] Administration Gabapentin 200 mg 10/21/16 06:00 10/21/16 13:11 Neurontin - PO 200 mg TID [facility] Administration Heparin Sodium (Porcine) 5,000 unit 10/21/16 10:00 10/21/16 11:14 Heparin - SQ 5,000 unit BID [facility] Administration Ceftriaxone Sodium 1 gm/ 50 mls @ 100 mls/hr 10/21/16 10:00 10/21/16 11:15 Dextrose IVPB 100 mls/hr DAILY [facility] Administration Insulin Aspart 50 units 10/21/16 07:00 10/21/16 06:11 Novolog Mix 70/30 Vial SQ 50 units AM [facility] Administration Insulin Aspart 25 units 10/21/16 22:00 Novolog Mix 70/30 Vial SQ HS [facility] Insulin Aspart 1 vial 10/21/16 07:00 10/21/16 12:12 Novolog Vial Sliding Scale - SQ Not Given ACHS [facility] Protocol Nifedipine 90 mg 10/21/16 10:00 10/21/16 12:34 Procardia Xl - PO 90 mg DAILY [facility] Administration Ondansetron HCl 8 mg 10/21/16 00:31 Zofran Injection IVPUSH Q6H PRN NAUSEA AND/OR VOMITING Pantoprazole Sodium 20 mg 10/21/16 10:00 10/21/16 11:14 Protonix - PO 20 mg DAILY [facility] Administration Rosuvastatin Calcium 5 mg 10/21/16 22:00 Crestor - PO HS [facility] Sodium Chloride 2 spray 10/21/16 00:31 10/21/16 11:16 [place] Nasal [place] - NS 2 spray TID PRN Administration NASAL CONGESTION Tamsulosin HCl 0.4 mg 10/21/16 08:30 10/21/16 07:56 Flomax - PO 0.4 mg DAILY@0830 [facility] Administration Laboratory Tests 10/19/16 05:20 [facility] Screen Negative c-ANCA Pending Proteinase 3 (PR3) Pending p-ANCA Pending Atypical p-ANCA Pending Myeloperoxidase Ab Pending Impression 1. FERMIN 2. hyperkalemia 3. morbid obesity 4. DM 5. HTN 6. likely sleep apnea 7. syncope 8. rhabdo Plan - will restart gentle hydration - bp is not controlled will add hydralazine - monitor bp - creatinine is improving - follow renal workup - recommend weigh loss - please do not give nsaids - adjust gabapentin dose for renal function Dr Martin
[2016-10-21] MEDS: SODIUM CHLORIDE 0.45% 1,000 ML IV SCH (16:53)
[2016-10-21] MEDS: hydrALAZINE HCL 10 MG TABLET PO SCH ×2 (17:33→21:52)
[2016-10-21 18:44] LABS: TROPONIN I 0.03 ng/ml (0.00-0.05)
--- NOTE | 2016-10-21 20:04 | PN ---
Progress Note, Physician History of Present Illness: Pt w/ alot of muscle pains and episode of chest pain He is now chest pain free - Current Medication List Current Medications: Active Medications Acetaminophen (Tylenol -) 650 mg PO Q6H PRN PRN Reason: FEVER OR PAIN Last Admin: 10/21/16 13:11 Dose: 650 mg Aclidinium [place] (Tudorza -) 1 puff IH BID [facility] Last Admin: 10/21/16 11:18 Dose: 1 puff Aspirin (Asa -) 81 mg PO DAILY [facility] Last Admin: 10/21/16 11:14 Dose: 81 mg Budesonide/Formoterol Fumarate (Symbicort 160/4.5mcg -) 1 puff IH BID [facility] Last Admin: 10/21/16 11:18 Dose: 1 puff Ferrous Sulfate (Feosol -) 325 mg PO TIDCM [facility] Last Admin: 10/21/16 17:41 Dose: 325 mg Gabapentin (Neurontin -) 200 mg PO TID [facility] Last Admin: 10/21/16 13:11 Dose: 200 mg Heparin Sodium (Porcine) (Heparin -) 5,000 unit SQ BID [facility] Last Admin: 10/21/16 11:14 Dose: 5,000 unit Hydralazine HCl (Apresoline -) 10 mg PO BID [facility] Last Admin: 10/21/16 17:33 Dose: 10 mg Ceftriaxone Sodium 1 gm/ (Dextrose) 50 mls @ 100 mls/hr IVPB DAILY [facility] Last Admin: 10/21/16 11:15 Dose: 100 mls/hr Sodium Chloride (1/2 Normal Saline) 1,000 mls @ 42 mls/hr IV ASDIR [facility] Last Admin: 10/21/16 16:53 Dose: 42 mls/hr Insulin Aspart (Novolog Mix 70/30 Vial) 50 units SQ AM [facility] Last Admin: 10/21/16 06:11 Dose: 50 units Insulin Aspart (Novolog Mix 70/30 Vial) 25 units SQ HS [facility] Insulin Aspart (Novolog Vial Sliding Scale -) 1 vial SQ ACHS [facility] PRN Reason: Protocol Last Admin: 10/21/16 17:38 Dose: Not Given Nifedipine (Procardia Xl -) 90 mg PO DAILY [facility] Last Admin: 10/21/16 12:34 Dose: 90 mg Ondansetron HCl (Zofran Injection) 8 mg IVPUSH Q6H PRN PRN Reason: NAUSEA AND/OR VOMITING Pantoprazole Sodium (Protonix -) 20 mg PO DAILY [facility] Last Admin: 10/21/16 11:14 Dose: 20 mg Rosuvastatin Calcium (Crestor -) 5 mg PO HS [facility] Sodium Chloride ([place] Nasal [place] -) 2 spray NS TID PRN PRN Reason: NASAL CONGESTION Last Admin: 10/21/16 11:16 Dose: 2 spray Tamsulosin HCl (Flomax -) 0.4 mg PO DAILY@0830 [facility] Last Admin: 10/21/16 07:56 Dose: 0.4 mg - Objective Vital Signs: Vital Signs Temperature 98.4 F 10/21/16 14:42 Pulse Rate 83 10/21/16 14:42 Respiratory Rate 18 10/21/16 14:42 Blood Pressure 163/101 10/21/16 14:42 O2 Sat by Pulse Oximetry (%) 98 10/20/16 22:34 Constitutional: Yes: Well Nourished Eyes: Yes: WNL HENT: Yes: WNL Neck: Yes: WNL, Supple Cardiovascular: Yes: WNL, Regular Rate and Rhythm Respiratory: Yes: WNL, Regular, CTA Bilaterally Labs: CBC, BMP 10/21/16 07:00 10/21/16 07:30 INR, PTT INR 0.94 (0.82-1.09) 10/17/16 21:34 Problem List - Problems (1) Acute renal failure Assessment/Plan: Labs improved CPK still elevated wc may be causing myalgias vs weight and being confined to bed Rhabdo Cont gentle IV hydration as per renal PT eval Code(s): N17.9 - ACUTE KIDNEY FAILURE, UNSPECIFIED (2) Diabetes Assessment/Plan: Cont sliding scale w/ novolog/humalog Code(s): E11.9 - TYPE 2 DIABETES MELLITUS WITHOUT COMPLICATIONS (3) Hyperlipidemia Assessment/Plan: Will dc crestor due to myalgias and observe Code(s): E78.5 - HYPERLIPIDEMIA, UNSPECIFIED (4) Back spasm Code(s): M62.830 - MUSCLE SPASM OF BACK (5) Hypertension Assessment/Plan: BP still elevated Cont hydralazine/procardia Code(s): I10 - ESSENTIAL (PRIMARY) HYPERTENSION Qualifiers: Hypertension type: unspecified Qualified Code(s): I10 - Essential ( primary) hypertension (6) Morbid obesity Code(s): E66.01 - MORBID (SEVERE) OBESITY DUE TO EXCESS CALORIES
[2016-10-21] MEDS ORDERED: INSULIN (NOVOLOG) ASPART 100 UNITS/ML 10ML VIAL ONE (21:27)
[2016-10-21] MEDS ORDERED: PT OWN MED DRAWER 7, Y5N ONE (21:51)
[2016-10-21] MEDS ORDERED: INSULIN (NOVOLOG MIX 70/30) 100 UNITS/ML MDV SQ SCH (22:00)
[2016-10-21] MEDS ORDERED: ROSUVASTATIN CA 5 MG TABLET (FP) PO SCH (22:00)
[2016-10-22 00:07] LABS: C-ANCA <1:20 titer (Neg:<1:20); MYELOPEROXIDASE ANTIBODY <9.0 U/mL (0.0-9.0); P-ANCA <1:20 titer (Neg:<1:20); PROTEINASE-3 ANTIBODY <3.5 U/mL (0.0-3.5)
[2016-10-22] MEDS: GABAPENTIN 100 MG CAPSULE (FP) PO SCH ×3 (06:34→22:39)
[2016-10-22] MEDS: INSULIN SLIDING SCALE (NOVOLOG) 1 VIAL SQ SCH ×4 (06:35→22:40)
[2016-10-22] MEDS: INSULIN (NOVOLOG MIX 70/30) 100 UNITS/ML MDV SQ SCH ×3 (06:37→22:41)
[2016-10-22] MEDS: ACETAMINOPHEN 325 MG TABLET (FP) PO PRN ×2 (08:09→22:40)
[2016-10-22] MEDS: TAMSULOSIN HCL 0.4 MG CAP.ER.24H (FP) PO SCH (08:09)
[2016-10-22] MEDS: FERROUS SO4 325 MG TABLET (FP) PO SCH ×3 (08:09→17:39)
[2016-10-22 08:57] LABS: ANION GAP 7 (8-16); CALCIUM 9.3 mg/dL (8.5-10.1); CO2 30 mmol/L (21-32); CREATININE 1.8 mg/dL (0.7-1.3); GLUCOSE,RANDOM 85 mg/dL (74-106)
--- NOTE | 2016-10-22 09:51 | PN ---
Progress Note, Physician Chief Complaint: no further epigastric pain Enzymes negative ECG reviewed, no acute changes Now having right sided flank discomfort which he attributes to constipation and "gas" - Current Medication List Current Medications: Active Medications Acetaminophen (Tylenol -) 650 mg PO Q6H PRN PRN Reason: FEVER OR PAIN Last Admin: 10/22/16 08:09 Dose: 650 mg Aclidinium [place] (Tudorza -) 1 puff IH BID [facility] Last Admin: 10/21/16 21:58 Dose: 1 puff Aspirin (Asa -) 81 mg PO DAILY [facility] Last Admin: 10/21/16 11:14 Dose: 81 mg Budesonide/Formoterol Fumarate (Symbicort 160/4.5mcg -) 1 puff IH BID [facility] Last Admin: 10/21/16 21:58 Dose: 1 puff Ferrous Sulfate (Feosol -) 325 mg PO TIDCM [facility] Last Admin: 10/22/16 08:09 Dose: 325 mg Gabapentin (Neurontin -) 200 mg PO TID [facility] Last Admin: 10/22/16 06:34 Dose: 200 mg Heparin Sodium (Porcine) (Heparin -) 5,000 unit SQ BID [facility] Last Admin: 10/21/16 21:52 Dose: 5,000 unit Hydralazine HCl (Apresoline -) 10 mg PO BID [facility] Last Admin: 10/21/16 21:52 Dose: 10 mg Sodium Chloride (1/2 Normal Saline) 1,000 mls @ 42 mls/hr IV ASDIR [facility] Last Admin: 10/21/16 16:53 Dose: 42 mls/hr Insulin Aspart (Novolog Mix 70/30 Vial) 50 units SQ AM [facility] Last Admin: 10/22/16 06:37 Dose: Not Given Insulin Aspart (Novolog Mix 70/30 Vial) 25 units SQ HS [facility] Last Admin: 10/21/16 21:58 Dose: 25 units Insulin Aspart (Novolog Vial Sliding Scale -) 1 vial SQ ACHS [facility] PRN Reason: Protocol Last Admin: 10/22/16 06:35 Dose: Not Given Nifedipine (Procardia Xl -) 90 mg PO DAILY [facility] Last Admin: 10/21/16 12:34 Dose: 90 mg Ondansetron HCl (Zofran Injection) 8 mg IVPUSH Q6H PRN PRN Reason: NAUSEA AND/OR VOMITING Pantoprazole Sodium (Protonix -) 20 mg PO DAILY [facility] Last Admin: 10/21/16 11:14 Dose: 20 mg Sodium Chloride ([place] Nasal [place] -) 2 spray NS TID PRN PRN Reason: NASAL CONGESTION Last Admin: 10/21/16 11:16 Dose: 2 spray Tamsulosin HCl (Flomax -) 0.4 mg PO DAILY@0830 [facility] Last Admin: 10/22/16 08:09 Dose: 0.4 mg - Objective Vital Signs: Vital Signs Temperature 98.9 F 10/22/16 06:00 Pulse Rate 94 H 10/22/16 06:00 Respiratory Rate 20 10/22/16 06:00 Blood Pressure 159/91 10/22/16 06:00 O2 Sat by Pulse Oximetry (%) 98 10/20/16 22:34 Constitutional: Yes: No Distress, Calm Eyes: Yes: Conjunctiva Clear Cardiovascular: Yes: Regular Rate and Rhythm Respiratory: Yes: CTA Bilaterally Gastrointestinal: Yes: Soft (nontender, no rebound or guarding), Abdomen, Obese Edema: Yes Edema: LLE: 1+, RLE: 1+ Neurological: Yes: Alert, Oriented Labs: CBC, BMP 10/21/16 07:00 10/22/16 06:30 INR, PTT INR 0.94 (0.82-1.09) 10/17/16 21:34 Laboratory Tests 10/21/16 10/21/16 11:08 16:30 Troponin I 0.03 D 0.03 Assessment/Plan Assessment/Plan 44 year old man with a history of HTN, HLD, DM, TATI, Obesity hypoventialation on home O2, Pulmonary HTN, TARA of unknown etiology, admitted with syncope, FERMIN on CKD. Syncope-uncertain etiology, likely orthostatic hypotension in the setting of JC , vomiting on day of syncope -echo w/ normal LVEF -carotid doppler showed no sig stenosis -no arrhythmias on telemetry for several days -JC improving with hydration Elevated CK-rhabdomyolysis, presumed due to fall after syncope -trending down -elevated troponin very mild and CK out of proportion, unlikely ACS (CKD) HTN-above goal but overall improved. -Procardia XL titrated to 90mg daily -hold CARRIE-I/ARB/diuretics for now in setting of JC HLD -cont crestor for now as CK has trended down Atypical CP: yesterday, now resolved. -reproducible on exam; likely musculoskeletal -repeat cardiac enzymes and ECG unremarkable. -Repeat ischemic work up recommended either prior to d/c or soon after d/c as outpatient.
[2016-10-22] MEDS ORDERED: PT OWN MED DRAWER 7, Y5N ONE ×2 (10:39→22:05)
[2016-10-22] MEDS: PANTOPRAZOLE 20 MG TABLET (FP) PO SCH (10:47)
[2016-10-22] MEDS: hydrALAZINE HCL 10 MG TABLET PO SCH ×2 (10:47→22:39)
[2016-10-22] MEDS: NIFEdipine E.R. 90 MG TABLET (FP) PO SCH (10:47)
[2016-10-22] MEDS: ASPIRIN 81 MG CHEWABLE TABLETS PO SCH (10:47)
[2016-10-22] MEDS: HEPARIN NA (PORCINE) 5,000 UNITS/ML 1ML VIAL SQ SCH ×2 (10:47→22:39)
[2016-10-22] MEDS: ACLIDINIUM BROMIDE 400 MCG/INH AERO.POWD IH SCH ×2 (10:48→22:44)
[2016-10-22] MEDS: BUDESONIDE/FORMETEROL FUMARATE 160/4.5 mcg INHALER IH SCH ×2 (10:49→22:45)
[2016-10-22] MEDS ORDERED: MAG HYDROX/AL HYDROX/SIMETH 30 ML UNIT-DOSE CUP PO ONE (12:30)
[2016-10-22 12:37] LABS: CPK 495 IU/L (39-308)
[2016-10-22] MEDS ORDERED: INSULIN (NOVOLOG) ASPART 100 UNITS/ML 10ML VIAL ONE (17:27)
--- NOTE | 2016-10-22 17:30 | PN ---
Progress Note, Physician History of Present Illness: Pt seen and examined at bedside. He is awake and alert. He denies chest pain. - Current Medication List Current Medications: Active Medications Acetaminophen (Tylenol -) 650 mg PO Q6H PRN PRN Reason: FEVER OR PAIN Last Admin: 10/22/16 08:09 Dose: 650 mg Aclidinium [place] (Tudorza -) 1 puff IH BID [facility] Last Admin: 10/22/16 10:48 Dose: 1 puff Aspirin (Asa -) 81 mg PO DAILY [facility] Last Admin: 10/22/16 10:47 Dose: 81 mg Budesonide/Formoterol Fumarate (Symbicort 160/4.5mcg -) 1 puff IH BID [facility] Last Admin: 10/22/16 10:49 Dose: 1 puff Ferrous Sulfate (Feosol -) 325 mg PO TIDCM [facility] Last Admin: 10/22/16 12:34 Dose: 325 mg Gabapentin (Neurontin -) 200 mg PO TID [facility] Last Admin: 10/22/16 14:35 Dose: 200 mg Heparin Sodium (Porcine) (Heparin -) 5,000 unit SQ BID [facility] Last Admin: 10/22/16 10:47 Dose: 5,000 unit Hydralazine HCl (Apresoline -) 10 mg PO BID [facility] Last Admin: 10/22/16 10:47 Dose: 10 mg Sodium Chloride (1/2 Normal Saline) 1,000 mls @ 42 mls/hr IV ASDIR [facility] Last Admin: 10/21/16 16:53 Dose: 42 mls/hr Insulin Aspart (Novolog Vial Sliding Scale -) 1 vial SQ ACHS [facility] PRN Reason: Protocol Last Admin: 10/22/16 12:37 Dose: Not Given Insulin Aspart (Novolog Mix 70/30 Vial) 25 units SQ ACBK [facility] Last Admin: 10/22/16 12:37 Dose: Not Given Insulin Aspart (Novolog Mix 70/30 Vial) 15 units SQ HS [facility] Nifedipine (Procardia Xl -) 90 mg PO DAILY [facility] Last Admin: 10/22/16 10:47 Dose: 90 mg Ondansetron HCl (Zofran Injection) 8 mg IVPUSH Q6H PRN PRN Reason: NAUSEA AND/OR VOMITING Pantoprazole Sodium (Protonix -) 20 mg PO DAILY [facility] Last Admin: 10/22/16 10:47 Dose: 20 mg Sodium Chloride ([place] Nasal [place] -) 2 spray NS TID PRN PRN Reason: NASAL CONGESTION Last Admin: 10/21/16 11:16 Dose: 2 spray Tamsulosin HCl (Flomax -) 0.4 mg PO DAILY@0830 [facility] Last Admin: 10/22/16 08:09 Dose: 0.4 mg - Objective Vital Signs: Vital Signs Temperature 98.7 F 10/22/16 16:15 Pulse Rate 94 H 10/22/16 16:15 Respiratory Rate 20 10/22/16 16:15 Blood Pressure 140/79 10/22/16 16:15 O2 Sat by Pulse Oximetry (%) 97 10/22/16 09:00 Constitutional: Yes: Calm Eyes: Yes: Conjunctiva Clear HENT: Yes: Atraumatic Cardiovascular: Yes: S1, S2 Respiratory: Yes: CTA Bilaterally Gastrointestinal: Yes: Normal Bowel Sounds, Soft, Abdomen, Obese Genitourinary: Yes: WNL Musculoskeletal: Yes: WNL Edema: Yes Edema: LLE: Trace, RLE: Trace Neurological: Yes: Oriented Psychiatric: Yes: Oriented Labs: CBC, BMP 10/21/16 07:00 10/22/16 06:30 INR, PTT INR 0.94 (0.82-1.09) 10/17/16 21:34 Problem List - Problems (1) Diabetes Code(s): E11.9 - TYPE 2 DIABETES MELLITUS WITHOUT COMPLICATIONS (2) Hyperkalemia Code(s): E87.5 - HYPERKALEMIA (3) Hyperlipidemia Code(s): E78.5 - HYPERLIPIDEMIA, UNSPECIFIED (4) Kidney failure Code(s): N19 - UNSPECIFIED KIDNEY FAILURE (5) Morbid obesity Code(s): E66.01 - MORBID (SEVERE) OBESITY DUE TO EXCESS CALORIES Assessment/Plan Current Medications Generic Name Dose Route Start Last Admin Trade Name Freq PRN Reason Stop Dose Admin Acetaminophen 650 mg 10/21/16 00:31 10/22/16 08:09 Tylenol - PO 650 mg Q6H PRN Administration FEVER OR PAIN Aclidinium [place] 1 puff 10/21/16 10:00 10/22/16 10:48 Tudorza - IH 1 puff BID [facility] Administration Aspirin 81 mg 10/21/16 10:00 10/22/16 10:47 Asa - PO 81 mg DAILY [facility] Administration Budesonide/Formoterol Fumarate 1 puff 10/21/16 10:00 10/22/16 10:49 Symbicort 160/4.5mcg - IH 1 puff BID [facility] Administration Ferrous Sulfate 325 mg 10/21/16 08:00 10/22/16 12:34 Feosol - PO 325 mg TIDCM [facility] Administration Gabapentin 200 mg 10/21/16 06:00 10/22/16 14:35 Neurontin - PO 200 mg TID [facility] Administration Heparin Sodium (Porcine) 5,000 unit 10/21/16 10:00 10/22/16 10:47 Heparin - SQ 5,000 unit BID [facility] Administration Hydralazine HCl 10 mg 10/21/16 16:15 10/22/16 10:47 Apresoline - PO 10 mg BID [facility] Administration Sodium Chloride 1,000 mls @ 42 mls/hr 10/21/16 16:15 10/21/16 16:53 1/2 Normal Saline IV 42 mls/hr ASDIR [facility] Administration Insulin Aspart 1 vial 10/21/16 07:00 10/22/16 12:37 Novolog Vial Sliding Scale - SQ Not Given ACHS [facility] Protocol Insulin Aspart 25 units 10/22/16 12:30 10/22/16 12:37 Novolog Mix 70/30 Vial SQ Not Given ACBK [facility] Insulin Aspart 15 units 10/22/16 22:00 Novolog Mix 70/30 Vial SQ HS [facility] Nifedipine 90 mg 10/21/16 10:00 10/22/16 10:47 Procardia Xl - PO 90 mg DAILY [facility] Administration Ondansetron HCl 8 mg 10/21/16 00:31 Zofran Injection IVPUSH Q6H PRN NAUSEA AND/OR VOMITING Pantoprazole Sodium 20 mg 10/21/16 10:00 10/22/16 10:47 Protonix - PO 20 mg DAILY [facility] Administration Sodium Chloride 2 spray 10/21/16 00:31 10/21/16 11:16 [place] Nasal [place] - NS 2 spray TID PRN Administration NASAL CONGESTION Tamsulosin HCl 0.4 mg 10/21/16 08:30 10/22/16 08:09 Flomax - PO 0.4 mg DAILY@0830 [facility] Administration Laboratory Tests 10/19/16 05:20 [place] Screen Negative c-ANCA <1:20 Proteinase 3 (PR3) <3.5 p-ANCA <1:20 Atypical p-ANCA <1:20 Myeloperoxidase Ab <9.0 Impression 1. FERMIN 2. hyperkalemia 3. morbid obesity 4. DM 5. HTN 6. likely sleep apnea 7. syncope 8. rhabdo Plan - renal function is stabilizing - workup is negative so far - cont hydralazine - bp is better - recommend weigh loss - please do not give nsaids Dr Martin
[2016-10-22] MEDS: SODIUM CHLORIDE 0.45% 1,000 ML IV SCH (17:39)
--- NOTE | 2016-10-22 22:02 | PN ---
Progress Note, Physician History of Present Illness: Pt is feeling better - Current Medication List Current Medications: Active Medications Acetaminophen (Tylenol -) 650 mg PO Q6H PRN PRN Reason: FEVER OR PAIN Last Admin: 10/22/16 08:09 Dose: 650 mg Aclidinium [place] (Tudorza -) 1 puff IH BID [facility] Last Admin: 10/22/16 10:48 Dose: 1 puff Aspirin (Asa -) 81 mg PO DAILY [facility] Last Admin: 10/22/16 10:47 Dose: 81 mg Budesonide/Formoterol Fumarate (Symbicort 160/4.5mcg -) 1 puff IH BID [facility] Last Admin: 10/22/16 10:49 Dose: 1 puff Ferrous Sulfate (Feosol -) 325 mg PO TIDCM [facility] Last Admin: 10/22/16 17:39 Dose: 325 mg Gabapentin (Neurontin -) 200 mg PO TID [facility] Last Admin: 10/22/16 14:35 Dose: 200 mg Heparin Sodium (Porcine) (Heparin -) 5,000 unit SQ BID [facility] Last Admin: 10/22/16 10:47 Dose: 5,000 unit Hydralazine HCl (Apresoline -) 10 mg PO BID [facility] Last Admin: 10/22/16 10:47 Dose: 10 mg Sodium Chloride (1/2 Normal Saline) 1,000 mls @ 42 mls/hr IV ASDIR [facility] Last Admin: 10/22/16 17:39 Dose: 42 mls/hr Insulin Aspart (Novolog Vial Sliding Scale -) 1 vial SQ ACHS [facility] PRN Reason: Protocol Last Admin: 10/22/16 17:40 Dose: 2 units Insulin Aspart (Novolog Mix 70/30 Vial) 25 units SQ ACBK [facility] Last Admin: 10/22/16 12:37 Dose: Not Given Insulin Aspart (Novolog Mix 70/30 Vial) 15 units SQ HS [facility] Nifedipine (Procardia Xl -) 90 mg PO DAILY [facility] Last Admin: 10/22/16 10:47 Dose: 90 mg Ondansetron HCl (Zofran Injection) 8 mg IVPUSH Q6H PRN PRN Reason: NAUSEA AND/OR VOMITING Pantoprazole Sodium (Protonix -) 20 mg PO DAILY [facility] Last Admin: 10/22/16 10:47 Dose: 20 mg Sodium Chloride ([place] Nasal [place] -) 2 spray NS TID PRN PRN Reason: NASAL CONGESTION Last Admin: 10/21/16 11:16 Dose: 2 spray Tamsulosin HCl (Flomax -) 0.4 mg PO DAILY@0830 [facility] Last Admin: 10/22/16 08:09 Dose: 0.4 mg - Objective Vital Signs: Vital Signs Temperature 98.7 F 10/22/16 16:15 Pulse Rate 94 H 10/22/16 16:15 Respiratory Rate 20 10/22/16 16:15 Blood Pressure 140/79 10/22/16 16:15 O2 Sat by Pulse Oximetry (%) 97 10/22/16 09:00 Constitutional: Yes: Well Nourished HENT: Yes: WNL Neck: Yes: WNL, Supple Cardiovascular: Yes: WNL, Regular Rate and Rhythm Respiratory: Yes: WNL, Regular, CTA Bilaterally Gastrointestinal: Yes: Normal Bowel Sounds, Soft, Abdomen, Obese Labs: CBC, BMP 10/21/16 07:00 10/22/16 06:30 INR, PTT INR 0.94 (0.82-1.09) 10/17/16 21:34 Problem List - Problems (1) Acute renal failure Assessment/Plan: Labs improved CPK still elevated wc may be causing myalgias vs weight and being confined to bed Rhabdo Cont gentle IV hydration as per renal ?DC planning for am Code(s): N17.9 - ACUTE KIDNEY FAILURE, UNSPECIFIED (2) Diabetes Assessment/Plan: Cont sliding scale w/ novolog/humalog Code(s): E11.9 - TYPE 2 DIABETES MELLITUS WITHOUT COMPLICATIONS (3) Hyperlipidemia Code(s): E78.5 - HYPERLIPIDEMIA, UNSPECIFIED (4) Back spasm Code(s): M62.830 - MUSCLE SPASM OF BACK (5) Hypertension Code(s): I10 - ESSENTIAL (PRIMARY) HYPERTENSION Qualifiers: Hypertension type: unspecified Qualified Code(s): I10 - Essential ( primary) hypertension (6) Morbid obesity Code(s): E66.01 - MORBID (SEVERE) OBESITY DUE TO EXCESS CALORIES
[2016-10-23] MEDS: GABAPENTIN 100 MG CAPSULE (FP) PO SCH ×3 (06:43→21:26)
[2016-10-23] MEDS: INSULIN SLIDING SCALE (NOVOLOG) 1 VIAL SQ SCH ×4 (06:47→21:28)
[2016-10-23] MEDS: INSULIN (NOVOLOG MIX 70/30) 100 UNITS/ML MDV SQ SCH ×2 (06:47→21:28)
[2016-10-23] MEDS: FERROUS SO4 325 MG TABLET (FP) PO SCH ×3 (08:44→17:03)
[2016-10-23] MEDS: TAMSULOSIN HCL 0.4 MG CAP.ER.24H (FP) PO SCH (08:44)
[2016-10-23] MEDS ORDERED: PT OWN MED DRAWER 7, Y5N ONE (10:01)
[2016-10-23] MEDS: ASPIRIN 81 MG CHEWABLE TABLETS PO SCH (10:03)
[2016-10-23] MEDS: hydrALAZINE HCL 10 MG TABLET PO SCH ×2 (10:03→21:26)
[2016-10-23] MEDS: PANTOPRAZOLE 20 MG TABLET (FP) PO SCH (10:04)
[2016-10-23] MEDS: BUDESONIDE/FORMETEROL FUMARATE 160/4.5 mcg INHALER IH SCH ×2 (10:04→21:30)
[2016-10-23] MEDS: ACLIDINIUM BROMIDE 400 MCG/INH AERO.POWD IH SCH ×2 (10:04→21:30)
[2016-10-23] MEDS: HEPARIN NA (PORCINE) 5,000 UNITS/ML 1ML VIAL SQ SCH ×2 (10:04→21:26)
[2016-10-23] MEDS: NIFEdipine E.R. 90 MG TABLET (FP) PO SCH (10:04)
--- NOTE | 2016-10-23 11:58 | PN ---
Progress Note, Physician History of Present Illness: seen and examined today in nad. ambulating in the hallway with PT. no overnight events. no new complaints. - Current Medication List Current Medications: Active Medications Acetaminophen (Tylenol -) 650 mg PO Q6H PRN PRN Reason: FEVER OR PAIN Last Admin: 10/22/16 22:40 Dose: 650 mg Aclidinium [place] (Tudorza -) 1 puff IH BID [facility] Last Admin: 10/23/16 10:04 Dose: 1 puff Aspirin (Asa -) 81 mg PO DAILY [facility] Last Admin: 10/23/16 10:03 Dose: 81 mg Budesonide/Formoterol Fumarate (Symbicort 160/4.5mcg -) 1 puff IH BID [facility] Last Admin: 10/23/16 10:04 Dose: 1 puff Ferrous Sulfate (Feosol -) 325 mg PO TIDCM [facility] Last Admin: 10/23/16 11:31 Dose: 325 mg Gabapentin (Neurontin -) 200 mg PO TID [facility] Last Admin: 10/23/16 06:43 Dose: 200 mg Heparin Sodium (Porcine) (Heparin -) 5,000 unit SQ BID [facility] Last Admin: 10/23/16 10:04 Dose: 5,000 unit Hydralazine HCl (Apresoline -) 10 mg PO BID [facility] Last Admin: 10/23/16 10:03 Dose: 10 mg Sodium Chloride (1/2 Normal Saline) 1,000 mls @ 42 mls/hr IV ASDIR [facility] Last Admin: 10/22/16 17:39 Dose: 42 mls/hr Insulin Aspart (Novolog Vial Sliding Scale -) 1 vial SQ ACHS [facility] PRN Reason: Protocol Last Admin: 10/23/16 11:30 Dose: Not Given Insulin Aspart (Novolog Mix 70/30 Vial) 25 units SQ ACBK [facility] Last Admin: 10/23/16 06:47 Dose: 25 units Insulin Aspart (Novolog Mix 70/30 Vial) 15 units SQ HS [facility] Last Admin: 10/22/16 22:41 Dose: 15 units Nifedipine (Procardia Xl -) 90 mg PO DAILY [facility] Last Admin: 10/23/16 10:04 Dose: 90 mg Ondansetron HCl (Zofran Injection) 8 mg IVPUSH Q6H PRN PRN Reason: NAUSEA AND/OR VOMITING Pantoprazole Sodium (Protonix -) 20 mg PO DAILY [facility] Last Admin: 10/23/16 10:04 Dose: 20 mg Sodium Chloride ([place] Nasal [place] -) 2 spray NS TID PRN PRN Reason: NASAL CONGESTION Last Admin: 10/21/16 11:16 Dose: 2 spray Tamsulosin HCl (Flomax -) 0.4 mg PO DAILY@0830 [facility] Last Admin: 10/23/16 08:44 Dose: 0.4 mg - Objective Vital Signs: Vital Signs Temperature 98.7 F 10/23/16 08:15 Pulse Rate 83 10/23/16 08:15 Respiratory Rate 18 10/23/16 08:15 Blood Pressure 141/85 10/23/16 08:15 O2 Sat by Pulse Oximetry (%) 97 10/23/16 09:00 Constitutional: Yes: No Distress, Calm, Obese Eyes: Yes: Conjunctiva Clear, EOM Intact, PERRL HENT: Yes: Atraumatic, Normocephalic Neck: Yes: Supple, Trachea Midline Cardiovascular: Yes: Regular Rate and Rhythm, S1, S2. No: Bradycardia, Tachycardia, Pulse Irregular, Bruit, JVD, Gallop, Rub, S3, S4, Varicosities Respiratory: Yes: Regular, CTA Bilaterally. No: Rales, Rhonchi, Wheezes Gastrointestinal: Yes: Normal Bowel Sounds, Soft. No: Distention, Tenderness Edema: No Peripheral Pulses WNL: Yes Peripheral Pulses: Left Doralis Pedis: 2+, Right Dorsalis Pedis: 2+ Neurological: Yes: Alert, Oriented Psychiatric: Yes: Alert, Oriented Labs: CBC, BMP 10/21/16 07:00 10/22/16 06:30 INR, PTT INR 0.94 (0.82-1.09) 10/17/16 21:34 - ....Imaging Chest X-ray: Report Reviewed, Image Reviewed EKG: Report Reviewed, Image Reviewed Other: Report Reviewed, Image Reviewed Assessment/Plan 44 year old man with a history of HTN, HLD, DM, TATI, Obesity hypoventialation on home O2, Pulmonary HTN, TARA of unknown etiology, admitted with syncope, FERMIN on CKD. Syncope-uncertain etiology, likely orthostatic hypotension in the setting of JC , vomiting on day of syncope -echo w/ normal LVEF -carotid doppler showed no sig stenosis -no arrhythmias on telemetry for several days -JC improving to baseline Elevated CK-rhabdomyolysis, presumed due to fall after syncope -trended down, not checked today -elevated troponin very mild and CK out of proportion, unlikely ACS (CKD) HTN-above goal but overall improved. -Cont nifedipine and Hydralazine and uptitrate as needed -hold CARRIE-I/ARB/diuretics for now in setting of JC HLD -crestor stopped presumed due to elevated CK Atypical CP: now resolved. -was reproducible on exam; likely musculoskeletal -cardiac enzymes and ECG unremarkable. -Repeat ischemic work up recommended likely soon after d/c as outpatient.
[2016-10-23] MEDS: DOCUSATE SODIUM 100 MG CAPSULE (FP) PO SCH (14:18)
--- NOTE | 2016-10-23 16:47 | PN ---
Progress Note, Physician History of Present Illness: Pt seen and examined at bedside. He is awake and alert. He complains of constipation. - Current Medication List Current Medications: Active Medications Acetaminophen (Tylenol -) 650 mg PO Q6H PRN PRN Reason: FEVER OR PAIN Last Admin: 10/22/16 22:40 Dose: 650 mg Aclidinium [place] (Tudorza -) 1 puff IH BID [facility] Last Admin: 10/23/16 10:04 Dose: 1 puff Aspirin (Asa -) 81 mg PO DAILY [facility] Last Admin: 10/23/16 10:03 Dose: 81 mg Budesonide/Formoterol Fumarate (Symbicort 160/4.5mcg -) 1 puff IH BID [facility] Last Admin: 10/23/16 10:04 Dose: 1 puff Docusate Sodium (Colace -) 300 mg PO DAILY [facility] Last Admin: 10/23/16 14:18 Dose: 300 mg Ferrous Sulfate (Feosol -) 325 mg PO TIDCM [facility] Last Admin: 10/23/16 11:31 Dose: 325 mg Gabapentin (Neurontin -) 200 mg PO TID [facility] Last Admin: 10/23/16 13:39 Dose: 200 mg Heparin Sodium (Porcine) (Heparin -) 5,000 unit SQ BID [facility] Last Admin: 10/23/16 10:04 Dose: 5,000 unit Hydralazine HCl (Apresoline -) 10 mg PO BID [facility] Last Admin: 10/23/16 10:03 Dose: 10 mg Sodium Chloride (1/2 Normal Saline) 1,000 mls @ 42 mls/hr IV ASDIR [facility] Last Admin: 10/22/16 17:39 Dose: 42 mls/hr Insulin Aspart (Novolog Vial Sliding Scale -) 1 vial SQ ACHS [facility] PRN Reason: Protocol Last Admin: 10/23/16 11:30 Dose: Not Given Insulin Aspart (Novolog Mix 70/30 Vial) 25 units SQ ACBK [facility] Last Admin: 10/23/16 06:47 Dose: 25 units Insulin Aspart (Novolog Mix 70/30 Vial) 15 units SQ HS [facility] Last Admin: 10/22/16 22:41 Dose: 15 units Nifedipine (Procardia Xl -) 90 mg PO DAILY [facility] Last Admin: 10/23/16 10:04 Dose: 90 mg Ondansetron HCl (Zofran Injection) 8 mg IVPUSH Q6H PRN PRN Reason: NAUSEA AND/OR VOMITING Pantoprazole Sodium (Protonix -) 20 mg PO DAILY [facility] Last Admin: 10/23/16 10:04 Dose: 20 mg Sodium Chloride ([place] Nasal [place] -) 2 spray NS TID PRN PRN Reason: NASAL CONGESTION Last Admin: 10/21/16 11:16 Dose: 2 spray Tamsulosin HCl (Flomax -) 0.4 mg PO DAILY@0830 [facility] Last Admin: 10/23/16 08:44 Dose: 0.4 mg - Objective Vital Signs: Vital Signs Temperature 98.7 F 10/23/16 08:15 Pulse Rate 93 H 10/23/16 14:27 Respiratory Rate 16 10/23/16 14:27 Blood Pressure 167/88 10/23/16 14:27 O2 Sat by Pulse Oximetry (%) 97 10/23/16 09:00 Constitutional: Yes: Calm Eyes: Yes: Conjunctiva Clear HENT: Yes: Atraumatic Neck: Yes: Supple Cardiovascular: Yes: S1, S2 Respiratory: Yes: CTA Bilaterally Gastrointestinal: Yes: Normal Bowel Sounds, Soft Genitourinary: Yes: WNL Edema: Yes Edema: LLE: 1+, RLE: 1+ Neurological: Yes: Oriented Psychiatric: Yes: Oriented Labs: CBC, BMP 10/21/16 07:00 10/22/16 06:30 INR, PTT INR 0.94 (0.82-1.09) 10/17/16 21:34 Problem List - Problems (1) Diabetes Code(s): E11.9 - TYPE 2 DIABETES MELLITUS WITHOUT COMPLICATIONS (2) Hyperkalemia Code(s): E87.5 - HYPERKALEMIA (3) Hyperlipidemia Code(s): E78.5 - HYPERLIPIDEMIA, UNSPECIFIED (4) Kidney failure Code(s): N19 - UNSPECIFIED KIDNEY FAILURE (5) Morbid obesity Code(s): E66.01 - MORBID (SEVERE) OBESITY DUE TO EXCESS CALORIES Assessment/Plan Current Medications Generic Name Dose Route Start Last Admin Trade Name Freq PRN Reason Stop Dose Admin Acetaminophen 650 mg 10/21/16 00:31 10/22/16 22:40 Tylenol - PO 650 mg Q6H PRN Administration FEVER OR PAIN Aclidinium [place] 1 puff 10/21/16 10:00 10/23/16 10:04 Tudorza - IH 1 puff BID [facility] Administration Aspirin 81 mg 10/21/16 10:00 10/23/16 10:03 Asa - PO 81 mg DAILY [facility] Administration Budesonide/Formoterol Fumarate 1 puff 10/21/16 10:00 10/23/16 10:04 Symbicort 160/4.5mcg - IH 1 puff BID [facility] Administration Docusate Sodium 300 mg 10/23/16 14:15 10/23/16 14:18 Colace - PO 300 mg DAILY [facility] Administration Ferrous Sulfate 325 mg 10/21/16 08:00 10/23/16 11:31 Feosol - PO 325 mg TIDCM [facility] Administration Gabapentin 200 mg 10/21/16 06:00 10/23/16 13:39 Neurontin - PO 200 mg TID [facility] Administration Heparin Sodium (Porcine) 5,000 unit 10/21/16 10:00 10/23/16 10:04 Heparin - SQ 5,000 unit BID [facility] Administration Hydralazine HCl 10 mg 10/21/16 16:15 10/23/16 10:03 Apresoline - PO 10 mg BID [facility] Administration Sodium Chloride 1,000 mls @ 42 mls/hr 10/21/16 16:15 10/22/16 17:39 1/2 Normal Saline IV 42 mls/hr ASDIR [facility] Administration Insulin Aspart 1 vial 10/21/16 07:00 10/23/16 11:30 Novolog Vial Sliding Scale - SQ Not Given ACHS [facility] Protocol Insulin Aspart 25 units 10/22/16 12:30 10/23/16 06:47 Novolog Mix 70/30 Vial SQ 25 units ACBK [facility] Administration Insulin Aspart 15 units 10/22/16 22:00 10/22/16 22:41 Novolog Mix 70/30 Vial SQ 15 units HS [facility] Administration Nifedipine 90 mg 10/21/16 10:00 10/23/16 10:04 Procardia Xl - PO 90 mg DAILY [facility] Administration Ondansetron HCl 8 mg 10/21/16 00:31 Zofran Injection IVPUSH Q6H PRN NAUSEA AND/OR VOMITING Pantoprazole Sodium 20 mg 10/21/16 10:00 10/23/16 10:04 Protonix - PO 20 mg DAILY [facility] Administration Sodium Chloride 2 spray 10/21/16 00:31 10/21/16 11:16 [place] Nasal [place] - NS 2 spray TID PRN Administration NASAL CONGESTION Tamsulosin HCl 0.4 mg 10/21/16 08:30 10/23/16 08:44 Flomax - PO 0.4 mg DAILY@0830 [facility] Administration Laboratory Tests 10/19/16 05:20 [facility] Screen Negative c-ANCA <1:20 Proteinase 3 (PR3) <3.5 p-ANCA <1:20 Atypical p-ANCA <1:20 Myeloperoxidase Ab <9.0 Impression 1. FERMIN 2. hyperkalemia 3. morbid obesity 4. DM 5. HTN 6. likely sleep apnea 7. syncope 8. rhabdo Plan - can stop fluids for now - check bmp - check cpk level - increase dose of hydralazine - recommend weigh loss - please do not give nsaids Dr Martin
[2016-10-23] MEDS: ACETAMINOPHEN 325 MG TABLET (FP) PO PRN (20:20)
[2016-10-23] MEDS ORDERED: INSULIN (NOVOLOG) ASPART 100 UNITS/ML 10ML VIAL ONE (20:33)
--- NOTE | 2016-10-23 22:51 | PN ---
Progress Note, Physician History of Present Illness: Pt having difficulty ambulating and is mostly bedbound - Current Medication List Current Medications: Active Medications Acetaminophen (Tylenol -) 650 mg PO Q6H PRN PRN Reason: FEVER OR PAIN Last Admin: 10/23/16 20:20 Dose: 650 mg Aclidinium [place] (Tudorza -) 1 puff IH BID [facility] Last Admin: 10/23/16 21:30 Dose: 1 puff Aspirin (Asa -) 81 mg PO DAILY [facility] Last Admin: 10/23/16 10:03 Dose: 81 mg Budesonide/Formoterol Fumarate (Symbicort 160/4.5mcg -) 1 puff IH BID [facility] Last Admin: 10/23/16 21:30 Dose: 1 puff Docusate Sodium (Colace -) 300 mg PO DAILY [facility] Last Admin: 10/23/16 14:18 Dose: 300 mg Ferrous Sulfate (Feosol -) 325 mg PO TIDCM [facility] Last Admin: 10/23/16 17:03 Dose: 325 mg Gabapentin (Neurontin -) 200 mg PO TID [facility] Last Admin: 10/23/16 21:26 Dose: 200 mg Heparin Sodium (Porcine) (Heparin -) 5,000 unit SQ BID [facility] Last Admin: 10/23/16 21:26 Dose: 5,000 unit Hydralazine HCl (Apresoline -) 10 mg PO TID [facility] Last Admin: 10/23/16 21:26 Dose: 10 mg Insulin Aspart (Novolog Vial Sliding Scale -) 1 vial SQ ACHS [facility] PRN Reason: Protocol Last Admin: 10/23/16 21:28 Dose: 2 units Insulin Aspart (Novolog Mix 70/30 Vial) 25 units SQ ACBK [facility] Last Admin: 10/23/16 06:47 Dose: 25 units Insulin Aspart (Novolog Mix 70/30 Vial) 15 units SQ HS [facility] Last Admin: 10/23/16 21:28 Dose: 15 units Nifedipine (Procardia Xl -) 90 mg PO DAILY [facility] Last Admin: 10/23/16 10:04 Dose: 90 mg Ondansetron HCl (Zofran Injection) 8 mg IVPUSH Q6H PRN PRN Reason: NAUSEA AND/OR VOMITING Pantoprazole Sodium (Protonix -) 20 mg PO DAILY [facility] Last Admin: 10/23/16 10:04 Dose: 20 mg Sodium Chloride ([place] Nasal [place] -) 2 spray NS TID PRN PRN Reason: NASAL CONGESTION Last Admin: 10/21/16 11:16 Dose: 2 spray Tamsulosin HCl (Flomax -) 0.4 mg PO DAILY@0830 [facility] Last Admin: 10/23/16 08:44 Dose: 0.4 mg - Objective Vital Signs: Vital Signs Temperature 98 F 10/23/16 16:20 Pulse Rate 93 H 10/23/16 16:20 Respiratory Rate 18 10/23/16 16:20 Blood Pressure 142/80 10/23/16 16:20 O2 Sat by Pulse Oximetry (%) 97 10/23/16 09:00 Constitutional: Yes: Well Nourished, Obese HENT: Yes: WNL Neck: Yes: WNL, Supple Cardiovascular: Yes: WNL, Regular Rate and Rhythm Respiratory: Yes: WNL, Regular, CTA Bilaterally Gastrointestinal: Yes: Normal Bowel Sounds, Soft, Abdomen, Obese Labs: CBC, BMP 10/21/16 07:00 10/22/16 06:30 INR, PTT INR 0.94 (0.82-1.09) 10/17/16 21:34 Problem List - Problems (1) Acute renal failure Assessment/Plan: Labs improved CPK still elevated wc may be causing myalgias vs weight and being confined to bed Rhabdo Cont gentle IV hydration as per renal ?DC planning for am to STR Code(s): N17.9 - ACUTE KIDNEY FAILURE, UNSPECIFIED (2) Diabetes Assessment/Plan: Cont sliding scale w/ novolog/humalog Code(s): E11.9 - TYPE 2 DIABETES MELLITUS WITHOUT COMPLICATIONS (3) Hyperlipidemia Code(s): E78.5 - HYPERLIPIDEMIA, UNSPECIFIED (4) Back spasm Code(s): M62.830 - MUSCLE SPASM OF BACK (5) Hypertension Code(s): I10 - ESSENTIAL (PRIMARY) HYPERTENSION Qualifiers: Hypertension type: unspecified Qualified Code(s): I10 - Essential ( primary) hypertension (6) Morbid obesity Code(s): E66.01 - MORBID (SEVERE) OBESITY DUE TO EXCESS CALORIES
[2016-10-24] MEDS: INSULIN SLIDING SCALE (NOVOLOG) 1 VIAL SQ SCH ×4 (06:15→22:04)
[2016-10-24] MEDS: hydrALAZINE HCL 10 MG TABLET PO SCH ×3 (06:16→22:03)
[2016-10-24] MEDS: GABAPENTIN 100 MG CAPSULE (FP) PO SCH ×3 (06:16→22:03)
[2016-10-24] MEDS: INSULIN (NOVOLOG MIX 70/30) 100 UNITS/ML MDV SQ SCH ×2 (06:20→22:04)
[2016-10-24] MEDS ORDERED: INSULIN (NOVOLOG) ASPART 100 UNITS/ML 10ML VIAL ONE (07:02)
[2016-10-24] MEDS ORDERED: INSULIN (NOVOLOG MIX 70/30) 100 UNITS/ML MDV SQ ONE (07:03)
[2016-10-24] MEDS: FERROUS SO4 325 MG TABLET (FP) PO SCH ×3 (08:52→17:11)
[2016-10-24] MEDS: TAMSULOSIN HCL 0.4 MG CAP.ER.24H (FP) PO SCH (08:52)
[2016-10-24 09:02] LABS: ALBUMIN 3.2 g/dl (3.4-5.0); ANION GAP 9 (8-16); CALCIUM 8.9 mg/dL (8.5-10.1); CO2 26 mmol/L (21-32); GLUCOSE,RANDOM 107 mg/dL (74-106)
[2016-10-24 09:06] LABS: ALK PHOS 86 U/L (45-117); BILIRUBIN,TOTAL 0.9 mg/dL (0.2-1.0); CREATININE 1.8 mg/dL (0.7-1.3); SGOT/AST 41 U/L (15-37); SGPT/ALT 43 U/L (12-78); TOT PROT 6.5 g/dl (6.4-8.2)
--- NOTE | 2016-10-24 09:45 | PN ---
Progress Note, Physician Chief Complaint: no new CV complaints History of Present Illness: BP overall improved. - Current Medication List Current Medications: Active Medications Acetaminophen (Tylenol -) 650 mg PO Q6H PRN PRN Reason: FEVER OR PAIN Last Admin: 10/23/16 20:20 Dose: 650 mg Aclidinium [place] (Tudorza -) 1 puff IH BID [facility] Last Admin: 10/23/16 21:30 Dose: 1 puff Aspirin (Asa -) 81 mg PO DAILY [facility] Last Admin: 10/23/16 10:03 Dose: 81 mg Budesonide/Formoterol Fumarate (Symbicort 160/4.5mcg -) 1 puff IH BID [facility] Last Admin: 10/23/16 21:30 Dose: 1 puff Docusate Sodium (Colace -) 300 mg PO DAILY [facility] Last Admin: 10/23/16 14:18 Dose: 300 mg Ferrous Sulfate (Feosol -) 325 mg PO TIDCM [facility] Last Admin: 10/24/16 08:52 Dose: 325 mg Gabapentin (Neurontin -) 200 mg PO TID [facility] Last Admin: 10/24/16 06:16 Dose: 200 mg Heparin Sodium (Porcine) (Heparin -) 5,000 unit SQ BID [facility] Last Admin: 10/23/16 21:26 Dose: 5,000 unit Hydralazine HCl (Apresoline -) 10 mg PO TID [facility] Last Admin: 10/24/16 06:16 Dose: 10 mg Insulin Aspart (Novolog Vial Sliding Scale -) 1 vial SQ ACHS [facility] PRN Reason: Protocol Last Admin: 10/24/16 06:15 Dose: Not Given Insulin Aspart (Novolog Mix 70/30 Vial) 25 units SQ ACBK [facility] Last Admin: 10/24/16 06:20 Dose: 25 units Insulin Aspart (Novolog Mix 70/30 Vial) 15 units SQ HS [facility] Last Admin: 10/23/16 21:28 Dose: 15 units Nifedipine (Procardia Xl -) 90 mg PO DAILY [facility] Last Admin: 10/23/16 10:04 Dose: 90 mg Ondansetron HCl (Zofran Injection) 8 mg IVPUSH Q6H PRN PRN Reason: NAUSEA AND/OR VOMITING Pantoprazole Sodium (Protonix -) 20 mg PO DAILY [facility] Last Admin: 10/23/16 10:04 Dose: 20 mg Sodium Chloride ([place] Nasal [place] -) 2 spray NS TID PRN PRN Reason: NASAL CONGESTION Last Admin: 10/21/16 11:16 Dose: 2 spray Tamsulosin HCl (Flomax -) 0.4 mg PO DAILY@0830 [facility] Last Admin: 10/24/16 08:52 Dose: 0.4 mg - Objective Vital Signs: Vital Signs Temperature 97.8 F 10/24/16 08:30 Pulse Rate 85 10/24/16 09:24 Respiratory Rate 20 10/24/16 08:30 Blood Pressure 146/72 10/24/16 08:30 O2 Sat by Pulse Oximetry (%) 98 10/24/16 09:24 Constitutional: Yes: No Distress, Calm Cardiovascular: Yes: Regular Rate and Rhythm Respiratory: Yes: CTA Bilaterally Gastrointestinal: Yes: Soft, Abdomen, Obese Edema: Yes Edema: LLE: 1+, RLE: 1+ Neurological: Yes: Alert Labs: CBC, BMP 10/21/16 07:00 10/24/16 06:00 INR, PTT INR 0.94 (0.82-1.09) 10/17/16 21:34 Laboratory Tests 10/21/16 10/24/16 07:00 06:00 WBC 7.2 Hgb 11.5 L Plt Count 248 Sodium 140 Potassium 4.7 Creatinine 1.8 H Assessment/Plan Assessment/Plan 44 year old man with a history of HTN, HLD, DM, TATI, Obesity hypoventialation on home O2, Pulmonary HTN, TARA of unknown etiology, admitted with syncope, FERMIN on CKD. Syncope-uncertain etiology, likely orthostatic hypotension in the setting of JC , vomiting on day of syncope -echo w/ normal LVEF -carotid doppler showed no sig stenosis -no arrhythmias on telemetry for several days -JC improving to baseline Elevated CK-rhabdomyolysis, presumed due to fall after syncope -trended down -elevated troponin very mild and CK out of proportion, unlikely ACS (CKD) HTN-above goal but overall improved. -Cont nifedipine and Hydralazine and uptitrate as needed -hold CARRIE-I/ARB/diuretics for now in setting of JC HLD -crestor stopped presumed due to elevated CK Atypical CP: now resolved. -was reproducible on exam; likely musculoskeletal -cardiac enzymes and ECG unremarkable. -Repeat ischemic work up recommended after d/c as outpatient.
[2016-10-24 10:09] LABS: CPK 436 IU/L (39-308)
[2016-10-24] MEDS ORDERED: PT OWN MED DRAWER 7, Y5N ONE ×2 (10:10→13:44)
[2016-10-24] MEDS: ASPIRIN 81 MG CHEWABLE TABLETS PO SCH (10:18)
[2016-10-24] MEDS: DOCUSATE SODIUM 100 MG CAPSULE (FP) PO SCH (10:18)
[2016-10-24] MEDS: BUDESONIDE/FORMETEROL FUMARATE 160/4.5 mcg INHALER IH SCH ×2 (10:19→22:06)
[2016-10-24] MEDS: NIFEdipine E.R. 90 MG TABLET (FP) PO SCH (10:19)
[2016-10-24] MEDS: PANTOPRAZOLE 20 MG TABLET (FP) PO SCH (10:19)
[2016-10-24] MEDS: ACLIDINIUM BROMIDE 400 MCG/INH AERO.POWD IH SCH ×2 (10:20→22:06)
[2016-10-24] MEDS: HEPARIN NA (PORCINE) 5,000 UNITS/ML 1ML VIAL SQ SCH ×2 (10:20→22:03)
[2016-10-24] MEDS: ACETAMINOPHEN 325 MG TABLET (FP) PO PRN ×2 (10:20→22:01)
--- NOTE | 2016-10-24 18:32 | PN ---
Progress Note, Physician History of Present Illness: Pt seen and examined at bedside. He is awake and alert. He says he feels better today. - Current Medication List Current Medications: Active Medications Acetaminophen (Tylenol -) 650 mg PO Q6H PRN PRN Reason: FEVER OR PAIN Last Admin: 10/24/16 10:20 Dose: 650 mg Aclidinium [place] (Tudorza -) 1 puff IH BID [facility] Last Admin: 10/24/16 10:20 Dose: 1 puff Aspirin (Asa -) 81 mg PO DAILY [facility] Last Admin: 10/24/16 10:18 Dose: 81 mg Budesonide/Formoterol Fumarate (Symbicort 160/4.5mcg -) 1 puff IH BID [facility] Last Admin: 10/24/16 10:19 Dose: 1 puff Docusate Sodium (Colace -) 300 mg PO DAILY [facility] Last Admin: 10/24/16 10:18 Dose: 300 mg Ferrous Sulfate (Feosol -) 325 mg PO TIDCM [facility] Last Admin: 10/24/16 17:11 Dose: 325 mg Gabapentin (Neurontin -) 200 mg PO TID [facility] Last Admin: 10/24/16 14:56 Dose: 200 mg Heparin Sodium (Porcine) (Heparin -) 5,000 unit SQ BID [facility] Last Admin: 10/24/16 10:20 Dose: 5,000 unit Hydralazine HCl (Apresoline -) 10 mg PO TID [facility] Last Admin: 10/24/16 14:56 Dose: 10 mg Insulin Aspart (Novolog Vial Sliding Scale -) 1 vial SQ ACHS [facility] PRN Reason: Protocol Last Admin: 10/24/16 16:49 Dose: 2 units Insulin Aspart (Novolog Mix 70/30 Vial) 25 units SQ ACBK [facility] Last Admin: 10/24/16 06:20 Dose: 25 units Insulin Aspart (Novolog Mix 70/30 Vial) 15 units SQ HS [facility] Last Admin: 10/23/16 21:28 Dose: 15 units Nifedipine (Procardia Xl -) 90 mg PO DAILY [facility] Last Admin: 10/24/16 10:19 Dose: 90 mg Ondansetron HCl (Zofran Injection) 8 mg IVPUSH Q6H PRN PRN Reason: NAUSEA AND/OR VOMITING Pantoprazole Sodium (Protonix -) 20 mg PO DAILY [facility] Last Admin: 10/24/16 10:19 Dose: 20 mg Sodium Chloride ([place] Nasal [place] -) 2 spray NS TID PRN PRN Reason: NASAL CONGESTION Last Admin: 10/21/16 11:16 Dose: 2 spray Tamsulosin HCl (Flomax -) 0.4 mg PO DAILY@0830 [facility] Last Admin: 10/24/16 08:52 Dose: 0.4 mg - Objective Vital Signs: Vital Signs Temperature 98.6 F 10/24/16 17:07 Pulse Rate 93 H 10/24/16 17:07 Respiratory Rate 20 10/24/16 17:07 Blood Pressure 128/68 10/24/16 17:07 O2 Sat by Pulse Oximetry (%) 98 10/24/16 09:24 Constitutional: Yes: Calm Eyes: Yes: Conjunctiva Clear HENT: Yes: Atraumatic Cardiovascular: Yes: S1, S2 Respiratory: Yes: CTA Bilaterally, On Nasal O2 Gastrointestinal: Yes: Abdomen, Obese Genitourinary: Yes: WNL Musculoskeletal: Yes: WNL Edema: Yes Edema: LLE: Trace, RLE: Trace Neurological: Yes: Oriented Psychiatric: Yes: Oriented Labs: CBC, BMP 10/21/16 07:00 10/24/16 06:00 INR, PTT INR 0.94 (0.82-1.09) 10/17/16 21:34 Problem List - Problems (1) Diabetes Code(s): E11.9 - TYPE 2 DIABETES MELLITUS WITHOUT COMPLICATIONS (2) Hyperkalemia Code(s): E87.5 - HYPERKALEMIA (3) Hyperlipidemia Code(s): E78.5 - HYPERLIPIDEMIA, UNSPECIFIED (4) Kidney failure Code(s): N19 - UNSPECIFIED KIDNEY FAILURE (5) Morbid obesity Code(s): E66.01 - MORBID (SEVERE) OBESITY DUE TO EXCESS CALORIES Assessment/Plan Current Medications Generic Name Dose Route Start Last Admin Trade Name Freq PRN Reason Stop Dose Admin Acetaminophen 650 mg 10/21/16 00:31 10/24/16 10:20 Tylenol - PO 650 mg Q6H PRN Administration FEVER OR PAIN Aclidinium [place] 1 puff 10/21/16 10:00 10/24/16 10:20 Tudorza - IH 1 puff BID [facility] Administration Aspirin 81 mg 10/21/16 10:00 10/24/16 10:18 Asa - PO 81 mg DAILY [facility] Administration Budesonide/Formoterol Fumarate 1 puff 10/21/16 10:00 10/24/16 10:19 Symbicort 160/4.5mcg - IH 1 puff BID [facility] Administration Docusate Sodium 300 mg 10/23/16 14:15 10/24/16 10:18 Colace - PO 300 mg DAILY [facility] Administration Ferrous Sulfate 325 mg 10/21/16 08:00 10/24/16 17:11 Feosol - PO 325 mg TIDCM [facility] Administration Gabapentin 200 mg 10/21/16 06:00 10/24/16 14:56 Neurontin - PO 200 mg TID [facility] Administration Heparin Sodium (Porcine) 5,000 unit 10/21/16 10:00 10/24/16 10:20 Heparin - SQ 5,000 unit BID [facility] Administration Hydralazine HCl 10 mg 10/23/16 22:00 10/24/16 14:56 Apresoline - PO 10 mg TID [facility] Administration Insulin Aspart 1 vial 10/21/16 07:00 10/24/16 16:49 Novolog Vial Sliding Scale - SQ 2 units ACHS [facility] Administration Protocol Insulin Aspart 25 units 10/22/16 12:30 10/24/16 06:20 Novolog Mix 70/30 Vial SQ 25 units ACBK [facility] Administration Insulin Aspart 15 units 10/22/16 22:00 10/23/16 21:28 Novolog Mix 70/30 Vial SQ 15 units HS [facility] Administration Nifedipine 90 mg 10/21/16 10:00 10/24/16 10:19 Procardia Xl - PO 90 mg DAILY [facility] Administration Ondansetron HCl 8 mg 10/21/16 00:31 Zofran Injection IVPUSH Q6H PRN NAUSEA AND/OR VOMITING Pantoprazole Sodium 20 mg 10/21/16 10:00 10/24/16 10:19 Protonix - PO 20 mg DAILY [facility] Administration Sodium Chloride 2 spray 10/21/16 00:31 10/21/16 11:16 [place] Nasal [place] - NS 2 spray TID PRN Administration NASAL CONGESTION Tamsulosin HCl 0.4 mg 10/21/16 08:30 10/24/16 08:52 Flomax - PO 0.4 mg DAILY@0830 [facility] Administration 10/19/16 05:20 [facility] Screen Negative c-ANCA <1:20 Proteinase 3 (PR3) <3.5 p-ANCA <1:20 Atypical p-ANCA <1:20 Myeloperoxidase Ab <9.0 Impression 1. FERMIN 2. hyperkalemia 3. morbid obesity 4. DM 5. HTN 6. likely sleep apnea 7. syncope 8. rhabdo Plan - renal function has not changed much from 1.8 - repeat labs and cpk in am - renal workup negative so far - cont hydralazine - recommend weigh loss, he is under eval for bariatric surgery in [facility] - please do not give nsaids Dr Martin
[2016-10-24 22:05] LABS: URINE APPEARANCE CLEAR; URINE BILIRUBIN NEGATIVE (NEGATIVE); URINE BLOOD 2+ (NEGATIVE); URINE COLOR LTYELLOW; URINE GLUCOSE (UA) NEGATIVE (NEGATIVE); URINE KETONE NEGATIVE (NEGATIVE); URINE LEUK ESTERASE NEGATIVE (NEGATIVE); URINE NITRITE NEGATIVE (NEGATIVE); URINE UROBILINOGEN 4.0 E.U/dl mg/dL (0.2-1.0)
[2016-10-24 22:15] LABS: URINE PROTEIN 2+ (NEGATIVE)
[2016-10-24 22:45] LABS: URINE HYALINE CAST 1 /lpf; URINE RBC 18 /hpf (0-3); URINE WBC 1 /hpf (3-5)
--- NOTE | 2016-10-24 23:46 | PN ---
Progress Note, Physician - Current Medication List Current Medications: Active Medications Acetaminophen (Tylenol -) 650 mg PO Q6H PRN PRN Reason: FEVER OR PAIN Last Admin: 10/24/16 22:01 Dose: 650 mg Aclidinium [place] (Tudorza -) 1 puff IH BID [facility] Last Admin: 10/24/16 22:06 Dose: 1 puff Aspirin (Asa -) 81 mg PO DAILY [facility] Last Admin: 10/24/16 10:18 Dose: 81 mg Budesonide/Formoterol Fumarate (Symbicort 160/4.5mcg -) 1 puff IH BID [facility] Last Admin: 10/24/16 22:06 Dose: 1 puff Docusate Sodium (Colace -) 300 mg PO DAILY [facility] Last Admin: 10/24/16 10:18 Dose: 300 mg Ferrous Sulfate (Feosol -) 325 mg PO TIDCM [facility] Last Admin: 10/24/16 17:11 Dose: 325 mg Gabapentin (Neurontin -) 200 mg PO TID [facility] Last Admin: 10/24/16 22:03 Dose: 200 mg Heparin Sodium (Porcine) (Heparin -) 5,000 unit SQ BID [facility] Last Admin: 10/24/16 22:03 Dose: 5,000 unit Hydralazine HCl (Apresoline -) 10 mg PO TID [facility] Last Admin: 10/24/16 22:03 Dose: 10 mg Insulin Aspart (Novolog Vial Sliding Scale -) 1 vial SQ ACHS [facility] PRN Reason: Protocol Last Admin: 10/24/16 22:04 Dose: 2 units Insulin Aspart (Novolog Mix 70/30 Vial) 25 units SQ ACBK [facility] Last Admin: 10/24/16 06:20 Dose: 25 units Insulin Aspart (Novolog Mix 70/30 Vial) 15 units SQ HS [facility] Last Admin: 10/24/16 22:04 Dose: 15 units Nifedipine (Procardia Xl -) 90 mg PO DAILY [facility] Last Admin: 10/24/16 10:19 Dose: 90 mg Ondansetron HCl (Zofran Injection) 8 mg IVPUSH Q6H PRN PRN Reason: NAUSEA AND/OR VOMITING Pantoprazole Sodium (Protonix -) 20 mg PO DAILY [facility] Last Admin: 10/24/16 10:19 Dose: 20 mg Sodium Chloride ([place] Nasal [place] -) 2 spray NS TID PRN PRN Reason: NASAL CONGESTION Last Admin: 10/21/16 11:16 Dose: 2 spray Tamsulosin HCl (Flomax -) 0.4 mg PO DAILY@0830 [facility] Last Admin: 10/24/16 08:52 Dose: 0.4 mg - Objective Vital Signs: Vital Signs Temperature 98.5 F 10/24/16 22:00 Pulse Rate 96 H 10/24/16 22:00 Respiratory Rate 20 10/24/16 22:00 Blood Pressure 147/79 10/24/16 22:00 O2 Sat by Pulse Oximetry (%) 98 10/24/16 21:00 Labs: CBC, BMP 10/21/16 07:00 10/24/16 06:00 INR, PTT INR 0.94 (0.82-1.09) 10/17/16 21:34 Problem List - Problems (1) Acute renal failure Code(s): N17.9 - ACUTE KIDNEY FAILURE, UNSPECIFIED (2) Diabetes Code(s): E11.9 - TYPE 2 DIABETES MELLITUS WITHOUT COMPLICATIONS (3) Hyperlipidemia Code(s): E78.5 - HYPERLIPIDEMIA, UNSPECIFIED (4) Back spasm Code(s): M62.830 - MUSCLE SPASM OF BACK (5) Hypertension Code(s): I10 - ESSENTIAL (PRIMARY) HYPERTENSION Qualifiers: Hypertension type: unspecified Qualified Code(s): I10 - Essential ( primary) hypertension (6) Morbid obesity Code(s): E66.01 - MORBID (SEVERE) OBESITY DUE TO EXCESS CALORIES
[2016-10-25] MEDS: INSULIN SLIDING SCALE (NOVOLOG) 1 VIAL SQ SCH ×4 (06:25→22:58)
[2016-10-25] MEDS: INSULIN (NOVOLOG MIX 70/30) 100 UNITS/ML MDV SQ SCH ×2 (06:27→22:56)
[2016-10-25] MEDS: GABAPENTIN 100 MG CAPSULE (FP) PO SCH ×3 (06:28→22:52)
[2016-10-25] MEDS: hydrALAZINE HCL 10 MG TABLET PO SCH ×3 (06:28→22:53)
[2016-10-25] MEDS: TAMSULOSIN HCL 0.4 MG CAP.ER.24H (FP) PO SCH (08:06)
[2016-10-25] MEDS: FERROUS SO4 325 MG TABLET (FP) PO SCH ×3 (08:06→17:34)
--- NOTE | 2016-10-25 09:16 | PN ---
Progress Note, Physician - Current Medication List Current Medications: Active Medications Acetaminophen (Tylenol -) 650 mg PO Q6H PRN PRN Reason: FEVER OR PAIN Last Admin: 10/24/16 22:01 Dose: 650 mg Aclidinium [place] (Tudorza -) 1 puff IH BID [facility] Last Admin: 10/24/16 22:06 Dose: 1 puff Aspirin (Asa -) 81 mg PO DAILY [facility] Last Admin: 10/24/16 10:18 Dose: 81 mg Budesonide/Formoterol Fumarate (Symbicort 160/4.5mcg -) 1 puff IH BID [facility] Last Admin: 10/24/16 22:06 Dose: 1 puff Docusate Sodium (Colace -) 300 mg PO DAILY [facility] Last Admin: 10/24/16 10:18 Dose: 300 mg Ferrous Sulfate (Feosol -) 325 mg PO TIDCM [facility] Last Admin: 10/25/16 08:06 Dose: 325 mg Gabapentin (Neurontin -) 200 mg PO TID [facility] Last Admin: 10/25/16 06:28 Dose: 200 mg Heparin Sodium (Porcine) (Heparin -) 5,000 unit SQ BID [facility] Last Admin: 10/24/16 22:03 Dose: 5,000 unit Hydralazine HCl (Apresoline -) 10 mg PO TID [facility] Last Admin: 10/25/16 06:28 Dose: 10 mg Insulin Aspart (Novolog Vial Sliding Scale -) 1 vial SQ ACHS [facility] PRN Reason: Protocol Last Admin: 10/25/16 06:25 Dose: Not Given Insulin Aspart (Novolog Mix 70/30 Vial) 25 units SQ ACBK [facility] Last Admin: 10/25/16 06:27 Dose: 25 units Insulin Aspart (Novolog Mix 70/30 Vial) 15 units SQ HS [facility] Last Admin: 10/24/16 22:04 Dose: 15 units Nifedipine (Procardia Xl -) 90 mg PO DAILY [facility] Last Admin: 10/24/16 10:19 Dose: 90 mg Ondansetron HCl (Zofran Injection) 8 mg IVPUSH Q6H PRN PRN Reason: NAUSEA AND/OR VOMITING Pantoprazole Sodium (Protonix -) 20 mg PO DAILY [facility] Last Admin: 10/24/16 10:19 Dose: 20 mg Sodium Chloride ([place] Nasal [place] -) 2 spray NS TID PRN PRN Reason: NASAL CONGESTION Last Admin: 10/21/16 11:16 Dose: 2 spray Tamsulosin HCl (Flomax -) 0.4 mg PO DAILY@0830 [facility] Last Admin: 10/25/16 08:06 Dose: 0.4 mg - Objective Vital Signs: Vital Signs Temperature 98.4 F 10/25/16 06:32 Pulse Rate 82 10/25/16 06:32 Respiratory Rate 20 10/25/16 06:32 Blood Pressure 150/90 10/25/16 06:32 O2 Sat by Pulse Oximetry (%) 98 10/24/16 21:00 Eyes: Yes: WNL, Conjunctiva Clear, EOM Intact HENT: Yes: WNL, Atraumatic, Normocephalic Neck: Yes: WNL, Supple, Trachea Midline Cardiovascular: Yes: WNL, Regular Rate and Rhythm Respiratory: Yes: WNL, Regular, CTA Bilaterally Gastrointestinal: Yes: WNL, Normal Bowel Sounds Genitourinary: Yes: WNL Musculoskeletal: Yes: WNL Extremities: Yes: WNL Edema: Yes Integumentary: Yes: WNL Neurological: Yes: WNL, Alert, Oriented ...Motor Strength: WNL Psychiatric: Yes: WNL Labs: CBC, BMP 10/21/16 07:00 INR, PTT INR 0.94 (0.82-1.09) 10/17/16 21:34 Assessment/Plan 44 year old man with a history of HTN, HLD, DM, TATI, Obesity hypoventialation on home O2, Pulmonary HTN, TARA of unknown etiology, admitted with syncope, FERMIN on CKD. Syncope-uncertain etiology, likely orthostatic hypotension in the setting of JC , vomiting on day of syncope -echo w/ normal LVEF -carotid doppler showed no sig stenosis -no arrhythmias on telemetry for several days -JC improving to baseline Elevated CK-rhabdomyolysis, presumed due to fall after syncope -trended down -elevated troponin very mild and CK out of proportion, unlikely ACS (CKD) HTN-above goal but overall improved. -Cont nifedipine and Hydralazine and uptitrate as needed -hold CARRIE-I/ARB/diuretics for now in setting of JC HLD -crestor stopped presumed due to elevated CK Atypical CP: now resolved. -was reproducible on exam; likely musculoskeletal -cardiac enzymes and ECG unremarkable. -Repeat ischemic work up recommended after d/c as outpatient. coverage dr. Mobley
[2016-10-25] MEDS ORDERED: PT OWN MED DRAWER 7, Y5N ONE (09:39)
[2016-10-25] MEDS: ASPIRIN 81 MG CHEWABLE TABLETS PO SCH (09:40)
[2016-10-25] MEDS: NIFEdipine E.R. 90 MG TABLET (FP) PO SCH (09:41)
[2016-10-25] MEDS: HEPARIN NA (PORCINE) 5,000 UNITS/ML 1ML VIAL SQ SCH ×2 (09:41→22:52)
[2016-10-25] MEDS: DOCUSATE SODIUM 100 MG CAPSULE (FP) PO SCH (09:41)
[2016-10-25] MEDS: PANTOPRAZOLE 20 MG TABLET (FP) PO SCH (09:41)
[2016-10-25] MEDS: ACLIDINIUM BROMIDE 400 MCG/INH AERO.POWD IH SCH ×2 (09:42→23:06)
[2016-10-25] MEDS: BUDESONIDE/FORMETEROL FUMARATE 160/4.5 mcg INHALER IH SCH ×2 (09:42→23:06)
[2016-10-25 09:57] LABS: ANION GAP 4 (8-16); CALCIUM 9.3 mg/dL (8.5-10.1); CO2 29 mmol/L (21-32); CREATININE 2.1 mg/dL (0.7-1.3); GLUCOSE,RANDOM 143 mg/dL (74-106)
[2016-10-25 11:21] LABS: CPK 391 IU/L (39-308)
--- NOTE | 2016-10-25 13:51 | PN ---
Progress Note (short form) - Note Progress Note: 45 yo obese black male b/l le lymphedema, causing scrotal compression and testes soft and nt, pt c/o of frq, urg and noct x 6, also has ed, upper tracts normal micturation do r/o nb will need urodynamics and cysto as out pt schedule to see in office post d/c hematuria needs w/u ckd - needs w/u
--- NOTE | 2016-10-25 17:23 | PN ---
Progress Note (short form) - Note Progress Note: 1. s/p FERMIN 2. s/p hyperkalemia 3. morbid obesity 4. DM 5. HTN 6. likely sleep apnea 7. syncope 8. s/p rhabdo Current Medications Acetaminophen (Tylenol -) 650 mg PO Q6H PRN PRN Reason: FEVER OR PAIN Last Admin: 10/24/16 22:01 Dose: 650 mg Aclidinium [place] (Tudorza -) 1 puff IH BID [facility] Last Admin: 10/25/16 09:42 Dose: 1 puff Aspirin (Asa -) 81 mg PO DAILY [facility] Last Admin: 10/25/16 09:40 Dose: 81 mg Budesonide/Formoterol Fumarate (Symbicort 160/4.5mcg -) 1 puff IH BID [facility] Last Admin: 10/25/16 09:42 Dose: 1 puff Docusate Sodium (Colace -) 300 mg PO DAILY [facility] Last Admin: 10/25/16 09:41 Dose: 300 mg Ferrous Sulfate (Feosol -) 325 mg PO TIDCM [facility] Last Admin: 10/25/16 13:56 Dose: 325 mg Gabapentin (Neurontin -) 200 mg PO TID [facility] Last Admin: 10/25/16 13:56 Dose: 200 mg Heparin Sodium (Porcine) (Heparin -) 5,000 unit SQ BID [facility] Last Admin: 10/25/16 09:41 Dose: 5,000 unit Hydralazine HCl (Apresoline -) 10 mg PO TID [facility] Last Admin: 10/25/16 13:56 Dose: 10 mg Insulin Aspart (Novolog Vial Sliding Scale -) 1 vial SQ ACHS [facility] PRN Reason: Protocol Last Admin: 10/25/16 13:43 Dose: 2 units Insulin Aspart (Novolog Mix 70/30 Vial) 25 units SQ ACBK [facility] Last Admin: 10/25/16 06:27 Dose: 25 units Insulin Aspart (Novolog Mix 70/30 Vial) 15 units SQ HS [facility] Last Admin: 10/24/16 22:04 Dose: 15 units Nifedipine (Procardia Xl -) 90 mg PO DAILY [facility] Last Admin: 10/25/16 09:41 Dose: 90 mg Ondansetron HCl (Zofran Injection) 8 mg IVPUSH Q6H PRN PRN Reason: NAUSEA AND/OR VOMITING Pantoprazole Sodium (Protonix -) 20 mg PO DAILY [facility] Last Admin: 10/25/16 09:41 Dose: 20 mg Sodium Chloride ([place] Nasal [place] -) 2 spray NS TID PRN PRN Reason: NASAL CONGESTION Last Admin: 10/21/16 11:16 Dose: 2 spray Tamsulosin HCl (Flomax -) 0.4 mg PO DAILY@0830 [facility] Last Admin: 10/25/16 08:06 Dose: 0.4 mg Last Vital Signs Temp Pulse Resp BP Pulse Ox 98.0 F 91 H 16 144/76 98 10/25/16 14:29 10/25/16 14:29 10/25/16 14:29 10/25/16 14:29 10/25/16 09:00 sleeping, arousable Lungs clear heart reg abd soft ext edema CBC, BMP 10/25/16 08:55 IMP- CKD stable No sign of pulm vasc congestion Morbid obesity F/u labs on thursday
--- NOTE | 2016-10-25 22:24 | PN ---
Progress Note, Physician - Current Medication List Current Medications: Active Medications Acetaminophen (Tylenol -) 650 mg PO Q6H PRN PRN Reason: FEVER OR PAIN Last Admin: 10/24/16 22:01 Dose: 650 mg Aclidinium [place] (Tudorza -) 1 puff IH BID [facility] Last Admin: 10/25/16 09:42 Dose: 1 puff Aspirin (Asa -) 81 mg PO DAILY [facility] Last Admin: 10/25/16 09:40 Dose: 81 mg Budesonide/Formoterol Fumarate (Symbicort 160/4.5mcg -) 1 puff IH BID [facility] Last Admin: 10/25/16 09:42 Dose: 1 puff Docusate Sodium (Colace -) 300 mg PO DAILY [facility] Last Admin: 10/25/16 09:41 Dose: 300 mg Ferrous Sulfate (Feosol -) 325 mg PO TIDCM [facility] Last Admin: 10/25/16 17:34 Dose: 325 mg Gabapentin (Neurontin -) 200 mg PO TID [facility] Last Admin: 10/25/16 13:56 Dose: 200 mg Heparin Sodium (Porcine) (Heparin -) 5,000 unit SQ BID [facility] Last Admin: 10/25/16 09:41 Dose: 5,000 unit Hydralazine HCl (Apresoline -) 10 mg PO TID [facility] Last Admin: 10/25/16 13:56 Dose: 10 mg Insulin Aspart (Novolog Vial Sliding Scale -) 1 vial SQ ACHS [facility] PRN Reason: Protocol Last Admin: 10/25/16 17:31 Dose: Not Given Insulin Aspart (Novolog Mix 70/30 Vial) 25 units SQ ACBK [facility] Last Admin: 10/25/16 06:27 Dose: 25 units Insulin Aspart (Novolog Mix 70/30 Vial) 15 units SQ HS [facility] Last Admin: 10/24/16 22:04 Dose: 15 units Nifedipine (Procardia Xl -) 90 mg PO DAILY [facility] Last Admin: 10/25/16 09:41 Dose: 90 mg Ondansetron HCl (Zofran Injection) 8 mg IVPUSH Q6H PRN PRN Reason: NAUSEA AND/OR VOMITING Pantoprazole Sodium (Protonix -) 20 mg PO DAILY [facility] Last Admin: 10/25/16 09:41 Dose: 20 mg Sodium Chloride ([place] Nasal [place] -) 2 spray NS TID PRN PRN Reason: NASAL CONGESTION Last Admin: 10/21/16 11:16 Dose: 2 spray Tamsulosin HCl (Flomax -) 0.4 mg PO DAILY@0830 [facility] Last Admin: 10/25/16 08:06 Dose: 0.4 mg - Objective Vital Signs: Vital Signs Temperature 99.2 F 10/25/16 17:20 Pulse Rate 87 10/25/16 17:20 Respiratory Rate 20 10/25/16 17:20 Blood Pressure 158/98 10/25/16 17:20 O2 Sat by Pulse Oximetry (%) 98 10/25/16 09:00 Labs: CBC, BMP 10/21/16 07:00 10/25/16 08:55 INR, PTT INR 0.94 (0.82-1.09) 10/17/16 21:34 Problem List - Problems (1) Acute renal failure Code(s): N17.9 - ACUTE KIDNEY FAILURE, UNSPECIFIED (2) Diabetes Code(s): E11.9 - TYPE 2 DIABETES MELLITUS WITHOUT COMPLICATIONS (3) Hyperlipidemia Code(s): E78.5 - HYPERLIPIDEMIA, UNSPECIFIED (4) Back spasm Code(s): M62.830 - MUSCLE SPASM OF BACK (5) Hypertension Code(s): I10 - ESSENTIAL (PRIMARY) HYPERTENSION Qualifiers: Hypertension type: unspecified Qualified Code(s): I10 - Essential ( primary) hypertension (6) Morbid obesity Code(s): E66.01 - MORBID (SEVERE) OBESITY DUE TO EXCESS CALORIES
[2016-10-26] MEDS: INSULIN SLIDING SCALE (NOVOLOG) 1 VIAL SQ SCH ×4 (06:34→22:04)
[2016-10-26] MEDS: GABAPENTIN 100 MG CAPSULE (FP) PO SCH ×3 (06:36→22:02)
[2016-10-26] MEDS ORDERED: PT OWN MED DRAWER 7, Y5N ONE ×3 (06:36→22:14)
[2016-10-26] MEDS: hydrALAZINE HCL 10 MG TABLET PO SCH ×3 (06:37→22:02)
[2016-10-26] MEDS: INSULIN (NOVOLOG MIX 70/30) 100 UNITS/ML MDV SQ SCH ×2 (06:50→22:03)
[2016-10-26] MEDS: FERROUS SO4 325 MG TABLET (FP) PO SCH ×3 (08:42→17:09)
[2016-10-26] MEDS: TAMSULOSIN HCL 0.4 MG CAP.ER.24H (FP) PO SCH (08:42)
--- NOTE | 2016-10-26 08:57 | PN ---
Progress Note, Physician - Current Medication List Current Medications: Active Medications Acetaminophen (Tylenol -) 650 mg PO Q6H PRN PRN Reason: FEVER OR PAIN Last Admin: 10/24/16 22:01 Dose: 650 mg Aclidinium [place] (Tudorza -) 1 puff IH BID [facility] Last Admin: 10/25/16 23:06 Dose: 1 puff Aspirin (Asa -) 81 mg PO DAILY [facility] Last Admin: 10/25/16 09:40 Dose: 81 mg Budesonide/Formoterol Fumarate (Symbicort 160/4.5mcg -) 1 puff IH BID [facility] Last Admin: 10/25/16 23:06 Dose: 1 puff Docusate Sodium (Colace -) 300 mg PO DAILY [facility] Last Admin: 10/25/16 09:41 Dose: 300 mg Ferrous Sulfate (Feosol -) 325 mg PO TIDCM [facility] Last Admin: 10/26/16 08:42 Dose: 325 mg Gabapentin (Neurontin -) 200 mg PO TID [facility] Last Admin: 10/26/16 06:36 Dose: 200 mg Heparin Sodium (Porcine) (Heparin -) 5,000 unit SQ BID [facility] Last Admin: 10/25/16 22:52 Dose: 5,000 unit Hydralazine HCl (Apresoline -) 10 mg PO TID [facility] Last Admin: 10/26/16 06:37 Dose: 10 mg Insulin Aspart (Novolog Vial Sliding Scale -) 1 vial SQ ACHS [facility] PRN Reason: Protocol Last Admin: 10/26/16 06:34 Dose: Not Given Insulin Aspart (Novolog Mix 70/30 Vial) 25 units SQ ACBK [facility] Last Admin: 10/26/16 06:50 Dose: 25 units Insulin Aspart (Novolog Mix 70/30 Vial) 15 units SQ HS [facility] Last Admin: 10/25/16 22:56 Dose: 15 units Nifedipine (Procardia Xl -) 90 mg PO DAILY [facility] Last Admin: 10/25/16 09:41 Dose: 90 mg Ondansetron HCl (Zofran Injection) 8 mg IVPUSH Q6H PRN PRN Reason: NAUSEA AND/OR VOMITING Pantoprazole Sodium (Protonix -) 20 mg PO DAILY [facility] Last Admin: 10/25/16 09:41 Dose: 20 mg Sodium Chloride ([place] Nasal [place] -) 2 spray NS TID PRN PRN Reason: NASAL CONGESTION Last Admin: 10/21/16 11:16 Dose: 2 spray Tamsulosin HCl (Flomax -) 0.4 mg PO DAILY@0830 [facility] Last Admin: 10/26/16 08:42 Dose: 0.4 mg - Objective Vital Signs: Vital Signs Temperature 98.5 F 10/26/16 08:10 Pulse Rate 82 10/26/16 08:10 Respiratory Rate 20 10/26/16 08:10 Blood Pressure 171/98 10/26/16 08:10 O2 Sat by Pulse Oximetry (%) 97 10/25/16 21:00 Eyes: Yes: WNL, Conjunctiva Clear, EOM Intact HENT: Yes: WNL, Atraumatic, Normocephalic Neck: Yes: WNL, Supple, Trachea Midline Cardiovascular: Yes: WNL, Regular Rate and Rhythm Respiratory: Yes: WNL, Regular, CTA Bilaterally Gastrointestinal: Yes: WNL, Normal Bowel Sounds Genitourinary: Yes: WNL Musculoskeletal: Yes: WNL Extremities: Yes: WNL Edema: No Integumentary: Yes: WNL Neurological: Yes: WNL, Alert, Oriented ...Motor Strength: WNL Psychiatric: Yes: WNL Labs: CBC, BMP 10/21/16 07:00 10/25/16 08:55 INR, PTT INR 0.94 (0.82-1.09) 10/17/16 21:34 Assessment/Plan 44 year old man with a history of HTN, HLD, DM, TATI, Obesity hypoventialation on home O2, Pulmonary HTN, TARA of unknown etiology, admitted with syncope, FERMIN on CKD. Syncope-uncertain etiology, likely orthostatic hypotension in the setting of JC , vomiting on day of syncope -echo w/ normal LVEF -carotid doppler showed no sig stenosis -no arrhythmias on telemetry for several days -JC improving to baseline Elevated CK-rhabdomyolysis, presumed due to fall after syncope -trended down -elevated troponin very mild and CK out of proportion, unlikely ACS (CKD) HTN-above goal but overall improved. -Cont nifedipine and Hydralazine and uptitrate as needed -hold CARRIE-I/ARB/diuretics for now in setting of JC HLD -crestor stopped presumed due to elevated CK Atypical CP: now resolved. -was reproducible on exam; likely musculoskeletal -cardiac enzymes and ECG unremarkable. -Repeat ischemic work up recommended after d/c as outpatient. coverage dr. Mobley
[2016-10-26] MEDS: NIFEdipine E.R. 90 MG TABLET (FP) PO SCH (09:41)
[2016-10-26] MEDS: PANTOPRAZOLE 20 MG TABLET (FP) PO SCH (09:41)
[2016-10-26] MEDS: DOCUSATE SODIUM 100 MG CAPSULE (FP) PO SCH (09:41)
[2016-10-26] MEDS: HEPARIN NA (PORCINE) 5,000 UNITS/ML 1ML VIAL SQ SCH ×2 (09:41→22:01)
[2016-10-26] MEDS: ASPIRIN 81 MG CHEWABLE TABLETS PO SCH (09:41)
[2016-10-26 09:42] LABS: BASOPHIL 0.7 % (0-2.0); EOSINOPHIL 2.8 % (0-4.5); MCH 29.2 pg (25.7-33.7); MCHC 31.7 g/dl (32.0-35.9); MEAN CELL VOLUME 92.1 fl (80-96); MEAN PLT VOLUME 7.8 fl (7.5-11.1); NEUTROPHILS 71.3 % (42.8-82.8); PLATELET COUNT 243 K/MM3 (134-434); RDW 14.5 % (11.9-15.9); WHITE BLOOD COUNT 6.7 K/mm3 (4.0-10.0)
[2016-10-26] MEDS: BUDESONIDE/FORMETEROL FUMARATE 160/4.5 mcg INHALER IH SCH ×2 (09:42→22:01)
[2016-10-26] MEDS: ACLIDINIUM BROMIDE 400 MCG/INH AERO.POWD IH SCH ×2 (09:43→22:01)
[2016-10-26 10:17] LABS: ALBUMIN 3.5 g/dl (3.4-5.0); ALK PHOS 87 U/L (45-117); ANION GAP 5 (8-16); BILIRUBIN,TOTAL 0.6 mg/dL (0.2-1.0); CO2 29 mmol/L (21-32); CREATININE 2.1 mg/dL (0.7-1.3); GLUCOSE,RANDOM 176 mg/dL (74-106); SGOT/AST 31 U/L (15-37); SGPT/ALT 50 U/L (12-78); TOT PROT 7.2 g/dl (6.4-8.2)
--- NOTE | 2016-10-26 18:09 | PN ---
Progress Note (short form) - Note Progress Note: 1. s/p FERMIN 2. s/p hyperkalemia 3. morbid obesity 4. DM 5. HTN 6. likely sleep apnea 7. syncope 8. s/p rhabdo Current Medications Acetaminophen (Tylenol -) 650 mg PO Q6H PRN PRN Reason: FEVER OR PAIN Last Admin: 10/24/16 22:01 Dose: 650 mg Aclidinium [place] (Tudorza -) 1 puff IH BID [facility] Last Admin: 10/26/16 09:43 Dose: 1 puff Aspirin (Asa -) 81 mg PO DAILY [facility] Last Admin: 10/26/16 09:41 Dose: 81 mg Budesonide/Formoterol Fumarate (Symbicort 160/4.5mcg -) 1 puff IH BID [facility] Last Admin: 10/26/16 09:42 Dose: 1 puff Docusate Sodium (Colace -) 300 mg PO DAILY [facility] Last Admin: 10/26/16 09:41 Dose: 300 mg Ferrous Sulfate (Feosol -) 325 mg PO TIDCM [facility] Last Admin: 10/26/16 17:09 Dose: 325 mg Gabapentin (Neurontin -) 200 mg PO TID [facility] Last Admin: 10/26/16 14:27 Dose: 200 mg Heparin Sodium (Porcine) (Heparin -) 5,000 unit SQ BID [facility] Last Admin: 10/26/16 09:41 Dose: 5,000 unit Hydralazine HCl (Apresoline -) 10 mg PO TID [facility] Last Admin: 10/26/16 14:27 Dose: 10 mg Insulin Aspart (Novolog Vial Sliding Scale -) 1 vial SQ [facility] PRN Reason: Protocol Last Admin: 10/26/16 17:06 Dose: Not Given Insulin Aspart (Novolog Mix 70/30 Vial) 25 units SQ ACBK [facility] Last Admin: 10/26/16 06:50 Dose: 25 units Insulin Aspart (Novolog Mix 70/30 Vial) 15 units SQ HS [facility] Last Admin: 10/25/16 22:56 Dose: 15 units Nifedipine (Procardia Xl -) 90 mg PO DAILY [facility] Last Admin: 10/26/16 09:41 Dose: 90 mg Ondansetron HCl (Zofran Injection) 8 mg IVPUSH Q6H PRN PRN Reason: NAUSEA AND/OR VOMITING Pantoprazole Sodium (Protonix -) 20 mg PO DAILY [facility] Last Admin: 10/26/16 09:41 Dose: 20 mg Sodium Chloride ([place] Nasal [place] -) 2 spray NS TID PRN PRN Reason: NASAL CONGESTION Last Admin: 10/21/16 11:16 Dose: 2 spray Tamsulosin HCl (Flomax -) 0.4 mg PO DAILY@0830 [facility] Last Admin: 10/26/16 08:42 Dose: 0.4 mg Last Vital Signs Temp Pulse Resp BP Pulse Ox 97.9 F 93 H 16 137/73 97 10/26/16 14:24 10/26/16 14:24 10/26/16 14:24 10/26/16 14:24 10/25/16 21:00 sleeping, arousable Lungs clear heart reg abd soft ext 1 + edema CBC, BMP 10/26/16 09:13 10/26/16 09:13 IMP- CKD stable, increased azotemia may be 2/2 decreased fluids No sign of pulm vasc congestion Morbid obesity encouraged to have more fluids ad rsomery F/u labs on thursday
--- NOTE | 2016-10-26 23:05 | PN ---
Progress Note, Physician History of Present Illness: Pt c/o lt shoulder pain - Current Medication List Current Medications: Active Medications Acetaminophen (Tylenol -) 650 mg PO Q6H PRN PRN Reason: FEVER OR PAIN Last Admin: 10/24/16 22:01 Dose: 650 mg Aclidinium [place] (Tudorza -) 1 puff IH BID [facility] Last Admin: 10/26/16 22:01 Dose: 1 puff Aspirin (Asa -) 81 mg PO DAILY [facility] Last Admin: 10/26/16 09:41 Dose: 81 mg Budesonide/Formoterol Fumarate (Symbicort 160/4.5mcg -) 1 puff IH BID [facility] Last Admin: 10/26/16 22:01 Dose: 1 puff Docusate Sodium (Colace -) 300 mg PO DAILY [facility] Last Admin: 10/26/16 09:41 Dose: 300 mg Ferrous Sulfate (Feosol -) 325 mg PO TIDCM [facility] Last Admin: 10/26/16 17:09 Dose: 325 mg Gabapentin (Neurontin -) 200 mg PO TID [facility] Last Admin: 10/26/16 22:02 Dose: 200 mg Heparin Sodium (Porcine) (Heparin -) 5,000 unit SQ BID [facility] Last Admin: 10/26/16 22:01 Dose: 5,000 unit Hydralazine HCl (Apresoline -) 10 mg PO TID [facility] Last Admin: 10/26/16 22:02 Dose: 10 mg Insulin Aspart (Novolog Vial Sliding Scale -) 1 vial SQ ACHS [facility] PRN Reason: Protocol Last Admin: 10/26/16 22:04 Dose: 6 units Insulin Aspart (Novolog Mix 70/30 Vial) 25 units SQ ACBK [facility] Last Admin: 10/26/16 06:50 Dose: 25 units Insulin Aspart (Novolog Mix 70/30 Vial) 15 units SQ HS [facility] Last Admin: 10/26/16 22:03 Dose: 15 units Nifedipine (Procardia Xl -) 90 mg PO DAILY [facility] Last Admin: 10/26/16 09:41 Dose: 90 mg Ondansetron HCl (Zofran Injection) 8 mg IVPUSH Q6H PRN PRN Reason: NAUSEA AND/OR VOMITING Pantoprazole Sodium (Protonix -) 20 mg PO DAILY [facility] Last Admin: 10/26/16 09:41 Dose: 20 mg Sodium Chloride ([place] Nasal [place] -) 2 spray NS TID PRN PRN Reason: NASAL CONGESTION Last Admin: 10/21/16 11:16 Dose: 2 spray Tamsulosin HCl (Flomax -) 0.4 mg PO DAILY@0830 [facility] Last Admin: 10/26/16 08:42 Dose: 0.4 mg - Objective Vital Signs: Vital Signs Temperature 98.3 F 10/26/16 17:20 Pulse Rate 82 10/26/16 17:20 Respiratory Rate 20 10/26/16 17:20 Blood Pressure 155/92 10/26/16 17:20 O2 Sat by Pulse Oximetry (%) 97 10/25/16 21:00 Constitutional: Yes: Well Nourished Neck: Yes: WNL, Supple Cardiovascular: Yes: WNL, Regular Rate and Rhythm Respiratory: Yes: WNL, Regular, CTA Bilaterally Gastrointestinal: Yes: WNL, Normal Bowel Sounds, Soft Labs: CBC, BMP 10/26/16 09:13 10/26/16 09:13 INR, PTT INR 0.94 (0.82-1.09) 10/17/16 21:34 Problem List - Problems (1) Acute renal failure Assessment/Plan: Slight increase in creatinine once IVF were stopped Check level in am encourage po intake DC planning in am to STR Code(s): N17.9 - ACUTE KIDNEY FAILURE, UNSPECIFIED (2) Diabetes Assessment/Plan: Cont sliding scale w/ novolog/humalog Code(s): E11.9 - TYPE 2 DIABETES MELLITUS WITHOUT COMPLICATIONS (3) Hyperlipidemia Assessment/Plan: Will dc crestor due to myalgias and observe Code(s): E78.5 - HYPERLIPIDEMIA, UNSPECIFIED (4) Back spasm Code(s): M62.830 - MUSCLE SPASM OF BACK (5) Hypertension Assessment/Plan: BP stable Cont hydralazine/procardia Code(s): I10 - ESSENTIAL (PRIMARY) HYPERTENSION Qualifiers: Hypertension type: unspecified Qualified Code(s): I10 - Essential ( primary) hypertension (6) Morbid obesity Code(s): E66.01 - MORBID (SEVERE) OBESITY DUE TO EXCESS CALORIES
[2016-10-27] MEDS ORDERED: PT OWN MED DRAWER 7, Y5N ONE ×2 (05:41→09:47)
[2016-10-27] MEDS: hydrALAZINE HCL 10 MG TABLET PO SCH (05:46)
[2016-10-27] MEDS: GABAPENTIN 100 MG CAPSULE (FP) PO SCH (05:46)
[2016-10-27] MEDS: INSULIN SLIDING SCALE (NOVOLOG) 1 VIAL SQ SCH ×2 (06:31→11:27)
[2016-10-27] MEDS: INSULIN (NOVOLOG MIX 70/30) 100 UNITS/ML MDV SQ SCH (07:07)
[2016-10-27] MEDS: FERROUS SO4 325 MG TABLET (FP) PO SCH ×2 (08:36→11:27)
[2016-10-27] MEDS: TAMSULOSIN HCL 0.4 MG CAP.ER.24H (FP) PO SCH (08:36)
[2016-10-27] MEDS: PANTOPRAZOLE 20 MG TABLET (FP) PO SCH (09:50)
[2016-10-27] MEDS: NIFEdipine E.R. 90 MG TABLET (FP) PO SCH (09:50)
[2016-10-27] MEDS: HEPARIN NA (PORCINE) 5,000 UNITS/ML 1ML VIAL SQ SCH (09:50)
[2016-10-27] MEDS: ASPIRIN 81 MG CHEWABLE TABLETS PO SCH (09:50)
[2016-10-27] MEDS: BUDESONIDE/FORMETEROL FUMARATE 160/4.5 mcg INHALER IH SCH (09:51)
[2016-10-27] MEDS: ACETAMINOPHEN 325 MG TABLET (FP) PO PRN (09:52)
[2016-10-27] MEDS: ACLIDINIUM BROMIDE 400 MCG/INH AERO.POWD IH SCH (09:52)
--- NOTE | 2016-10-27 10:50 | PN ---
Progress Note, Physician History of Present Illness: seen and examined today in nad. awaiting transfer to SNF. no overnight events. no new complaints. - Current Medication List Current Medications: Active Medications Acetaminophen (Tylenol -) 650 mg PO Q6H PRN PRN Reason: FEVER OR PAIN Last Admin: 10/27/16 09:52 Dose: 650 mg Aclidinium [place] (Tudorza -) 1 puff IH BID [facility] Last Admin: 10/27/16 09:52 Dose: 1 puff Aspirin (Asa -) 81 mg PO DAILY [facility] Last Admin: 10/27/16 09:50 Dose: 81 mg Budesonide/Formoterol Fumarate (Symbicort 160/4.5mcg -) 1 puff IH BID [facility] Last Admin: 10/27/16 09:51 Dose: 1 puff Docusate Sodium (Colace -) 300 mg PO DAILY [facility] Last Admin: 10/26/16 09:41 Dose: 300 mg Ferrous Sulfate (Feosol -) 325 mg PO TIDCM [facility] Last Admin: 10/27/16 08:36 Dose: 325 mg Gabapentin (Neurontin -) 200 mg PO TID [facility] Last Admin: 10/27/16 05:46 Dose: 200 mg Heparin Sodium (Porcine) (Heparin -) 5,000 unit SQ BID [facility] Last Admin: 10/27/16 09:50 Dose: 5,000 unit Hydralazine HCl (Apresoline -) 10 mg PO TID [facility] Last Admin: 10/27/16 05:46 Dose: 10 mg Insulin Aspart (Novolog Vial Sliding Scale -) 1 vial SQ ACHS [facility] PRN Reason: Protocol Last Admin: 10/27/16 06:31 Dose: Not Given Insulin Aspart (Novolog Mix 70/30 Vial) 25 units SQ ACBK [facility] Last Admin: 10/27/16 07:07 Dose: Not Given Insulin Aspart (Novolog Mix 70/30 Vial) 15 units SQ HS [facility] Last Admin: 10/26/16 22:03 Dose: 15 units Nifedipine (Procardia Xl -) 90 mg PO DAILY [facility] Last Admin: 10/27/16 09:50 Dose: 90 mg Ondansetron HCl (Zofran Injection) 8 mg IVPUSH Q6H PRN PRN Reason: NAUSEA AND/OR VOMITING Pantoprazole Sodium (Protonix -) 20 mg PO DAILY [facility] Last Admin: 10/27/16 09:50 Dose: 20 mg Sodium Chloride ([place] Nasal Matthews -) 2 spray NS TID PRN PRN Reason: NASAL CONGESTION Last Admin: 10/21/16 11:16 Dose: 2 spray Tamsulosin HCl (Flomax -) 0.4 mg PO DAILY@0830 [facility] Last Admin: 10/27/16 08:36 Dose: 0.4 mg - Objective Vital Signs: Vital Signs Temperature 98.3 F 10/27/16 06:00 Pulse Rate 81 10/27/16 06:00 Respiratory Rate 20 10/27/16 06:00 Blood Pressure 182/93 10/27/16 06:00 O2 Sat by Pulse Oximetry (%) 97 10/25/16 21:00 Constitutional: Yes: No Distress, Calm, Obese Eyes: Yes: Conjunctiva Clear, EOM Intact, PERRL HENT: Yes: Atraumatic, Normocephalic Neck: Yes: Supple, Trachea Midline Cardiovascular: Yes: Regular Rate and Rhythm, S1, S2. No: Bradycardia, Tachycardia, Pulse Irregular, Bruit, JVD, Gallop, Murmur, Rub, S3, S4, Varicosities Respiratory: Yes: Regular, CTA Bilaterally, Diminished. No: Rales, Rhonchi, Wheezes Gastrointestinal: Yes: Normal Bowel Sounds, Soft. No: Distention, Tenderness Edema: LLE: Trace, RLE: Trace Peripheral Pulses WNL: Yes Peripheral Pulses: Left Doralis Pedis: 2+, Right Dorsalis Pedis: 2+ Neurological: Yes: Alert, Oriented Psychiatric: Yes: Alert, Oriented Labs: CBC, BMP 10/26/16 09:13 10/26/16 09:13 INR, PTT INR 0.94 (0.82-1.09) 10/17/16 21:34 - ....Imaging Chest X-ray: Report Reviewed, Image Reviewed EKG: Report Reviewed, Image Reviewed Other: Report Reviewed, Image Reviewed Assessment/Plan 44 year old man with a history of HTN, HLD, DM, TATI, Obesity hypoventialation on home O2, Pulmonary HTN, TARA of unknown etiology, admitted with syncope, FERMIN on CKD. Syncope-uncertain etiology, likely orthostatic hypotension in the setting of JC , vomiting on day of syncope -echo showed normal LVEF -carotid doppler showed no sig stenosis -no arrhythmias on telemetry for several days -JC overall improved -encourage adequate hydration, slow rise from a seated or lying position, and to sit/lie down immediately if symptoms develop -no additional inpatient cardiac work up needed at this point Elevated CK-rhabdomyolysis, presumed due to fall after syncope -trended down -elevated troponin very mild and CK out of proportion, unlikely ACS (CKD) HTN-above goal but overall improved. -Cont nifedipine and Hydralazine and uptitrate as needed -hold CARRIE-I/ARB/diuretics for now in setting of JC -close outpatient f/up after discharge from SNF for re-evaluation and adjustment as needed HLD -crestor stopped presumed due to elevated CK Atypical CP: now resolved. -was reproducible on exam; likely musculoskeletal -cardiac enzymes and ECG unremarkable. -Repeat ischemic work up recommended after d/c as outpatient.
[2016-10-27] MEDS: DOCUSATE SODIUM 100 MG CAPSULE (FP) PO SCH (10:56)
[2016-10-27 11:24] VITALS: BP 132/70; PULSE 84; TEMP 98.2
== END 2016-10-27 11:55 | DRG 683 ==
LOC: JER 21:22 → JERBED 22:44 → UNDOADMIN 23:22 → JERBED 23:22 → JICU 10-18 01:24 → J8W 10-21 00:34
PROVIDERS: ADMIT Internal Medicine; ATTEND Nurse Practitioner Acute Care
PROC: 3E0F7GC Introduction of Other Therapeutic Substance into Respiratory Tract, Via Natural or Artificial Opening (ICD-10-PCS; principal; 2016-10-18)
DX: N17.9 Acute kidney failure, unspecified (principal); Z68.45 Body mass index [BMI] 70 or greater, adult; N39.0 Urinary tract infection, site not specified; M62.82 Rhabdomyolysis; I13.0 Hypertensive heart and chronic kidney disease with heart failure and stage 1 through stage 4 chronic kidney disease, or unspecified chronic kidney disease; E87.5 Hyperkalemia; E66.01 Morbid (severe) obesity due to excess calories; Z71.3 Dietary counseling and surveillance; R00.0 Tachycardia, unspecified; I27.2 Other secondary pulmonary hypertension; E78.5 Hyperlipidemia, unspecified; J44.9 Chronic obstructive pulmonary disease, unspecified; G47.30 Sleep apnea, unspecified; R74.8 Abnormal levels of other serum enzymes; I95.1 Orthostatic hypotension; R07.89 Other chest pain; M62.830 Muscle spasm of back; E11.22 Type 2 diabetes mellitus with diabetic chronic kidney disease; N18.9 Chronic kidney disease, unspecified; I50.9 Heart failure, unspecified; Z99.81 Dependence on supplemental oxygen; Z96.653 Presence of artificial knee joint, bilateral; Z87.442 Personal history of urinary calculi; Z79.4 Long term (current) use of insulin
CPT/HCPCS: 36415; 71010-TC; 76775-TC; 80048; 80053; 81003; 81015; 82009; 82436; 82553; 82570; 83520; 83605; 83735; 83880; 84100; 84133; 84300; 84484; 84540; 85025; 85027; 85610; 86038; 86256; 87040; 87086; 93005; 93010; 93306-TC; 93880-TC; 97116-GP; 97162-GP; 99284-25; J1644

== ENCOUNTER 2018-08-12 20:25 | Inpatient (IN) | payer MEDICARE, OTHER ==
[2018-08-12] MEDS ORDERED: ASPIRIN 81 MG CHEWABLE TABLETS PO ONE (20:39)
--- NOTE | 2018-08-12 20:39 | PDOC ---
Rapid Medical Evaluation Time Seen by Provider: 08/12/18 20:36 Medical Evaluation: Allergies Allergy/AdvReac Type Severity Reaction Status Date / Time No Known Allergies Allergy Verified 10/17/16 21:38 08/12/18 20:36 I have performed a brief in-person evaluation of this patient. The patient presents with a chief complaint of: c/o SOB, "sugar been up and down ," two days of chest pain. Hx IDDM and HTN, on continuous O2 previously on 2L but now on 4L PCP Sukumar Ortiz Pertinent physical exam findings: morbidly obese, speech dypsnea I have ordered the following: cxr, labs, ekg The patient will proceed to the ED for further evaluation.
--- NOTE | 2018-08-12 20:53 | PDOC ---
History of Present Illness - General Chief Complaint: Shortness of Breath Stated Complaint: DIFFICULTY BREATHING Time Seen by Provider: 08/12/18 20:36 - History of Present Illness Initial Comments: 47yo M with PMH of morbid obesity, HTN, DM, HLD, COPD on home oxygen (recently increased to 4L O2) presenting with chest pain, shortness of breath, and cough. Patient states these complaints started two days. He has not taken breathing treatments for over a month due to problems with the machine. He is not currently on steroids or antibiotics. Chest pain is described as sharp and present on the left side of his chest. It is palpable and pleuritic. He states he does not have heart problems. Never had an MO. Patient was recommended by for cardiac evaluation in anticipation for bariatric surgery but has not yet done so. No personal or family history of MO. Does report some blood-tinged sputum. Patient mostly stays in bed all day given the swelling in his legs which has gotten worse. No recent surgical history, no hormone use, no history of DVT or PE. Reports chills. No fevers or abdominal pain. PCP: Sukumar Ortiz Past History - Past Medical History Allergies/Adverse Reactions: Allergies Allergy/AdvReac Type Severity Reaction Status Date / Time No Known Allergies Allergy Verified 08/12/18 20:42 Home Medications: Ambulatory Orders Aspirin [ASA -] 81 mg PO DAILY #30 tab.chew 12/19/13 Ascorbate Calcium [Vitamin C] 500 mg PO BID 06/09/14 Ferrous Sulfate [Feosol] 325 mg PO TID 06/09/14 Gabapentin 300 mg PO TID 06/09/14 Omeprazole [Prilosec (RX)] 20 mg PO DAILY 06/09/14 Rosuvastatin Calcium [Crestor] 5 mg PO DAILY 06/09/14 Acetaminophen [Tylenol .Regular Strength -] 650 mg PO Q4H PRN #0 tablet Budesonide/Formeterol Fumarate [SYMBICORT 160/4.5mcg -] 1 puff IH BID inhaler 05/22/15 Guaifenesin Dm [Robitussin Dm -] 10 ml PO Q4H PRN #0 cup 05/22/15 Hydrochlorothiazide [Hctz -] 25 mg PO DAILY #0 tablet 05/22/15 Nifedipine ER [Procardia XL -] 90 mg PO DAILY tab.er.24 05/22/15 Tiotropium [place] [Spiriva] 1 puff IH DAILY inh 05/22/15 Ibuprofen 800 mg PO TID #30 tablet 12/20/15 Oxycodone HCl/Acetaminophen [Percocet 10-325 mg Tablet] 1 each PO Q6H PRN #12 tablet MDD 4 10/15/16 Tamsulosin HCl [Flomax -] 0.4 mg PO DAILY #5 capsule 10/15/16 Colace - 100 mg PO DAILY 12/22/16 Crestor 5 mg PO HS 12/22/16 Hydralazine HCl 10 mg PO TID 12/22/16 Miralax 119 gm Btl - DAILY 12/22/16 Novolog Mix 70-30 Vial 25 units SCJ ACBK 12/22/16 Novolog Mix 70/30 Flexpen - 15 units SCJ HS 12/22/16 Spiriva DAILY 12/22/16 Anemia: Yes Asthma: Yes Cancer: No Cardiac Disorders: Yes CVA: No COPD: Yes CHF: Yes Dementia: No Diabetes: Yes GI Disorders: Yes (OBESITY) Disorders: No HTN: Yes Hypercholesterolemia: Yes Liver Disease: No Seizures: No Thyroid Disease: No - Surgical History Abdominal Surgery: No Appendectomy: No Cardiac Surgery: No Cholecystectomy: No Lung Surgery: No Neurologic Surgery: No Orthopedic Surgery: Yes (bilateral knee arthroscopy) - Immunization History Immunization Up to Date: Yes - Suicide/Smoking/Psychosocial Hx Smoking Status: No Smoking History: Unknown if ever smoked Have you smoked in the past 12 months: No Number of Cigarettes Smoked Daily: 0 If you are a former smoker, when did you quit?: 1998 Information on smoking cessation initiated: No Hx Alcohol Use: No Drug/Substance Use Hx: No Substance Use Type: None Hx Substance Use Treatment: No Review of Systems - Review of Systems Comments:: Constitutional: no fever, +chills HEENT: no throat pain, no dysphagia Cardiovascular: +chest pain, no palpitations Respiratory: +cough, +shortness of breath Gastrointestinal: no abdominal pain, no vomiting Genitourinary: no dysuria, no frequency Musculoskeletal: no myalgia, no arthralgia Skin: no rash, no itching Neurologic: no headache, no vision changes *Physical Exam - Vital Signs Last Vital Signs Temp Pulse Resp BP Pulse Ox 98.0 F 99 H 16 173/80 H 90 L 08/12/18 20:38 08/12/18 20:38 08/12/18 20:38 08/12/18 20:38 08/12/18 20:38 - Physical Exam Comments: General: Awake, alert, and fully oriented Head: No signs of trauma Eyes: EOMI, sclera anicteric ENT: Moist mucus membranes Neck: Normal ROM, supple Lungs: Decreased lung sounds at the bases, prolonged expiratory phase, dyspneic , unable to complete full sentences Cardio: Regular rhythm, S1 and S2 present Abdomen: Soft, nontender Extremities: 2+ pitting edema, distal pulses present SKIN: Warm, Dry, normal turgor Neurologic: Cranial nerves II through XII grossly intact. Normal speech ED Treatment Course - LABORATORY CBC & Chemistry Diagram: 08/13/18 06:00 08/12/18 21:00 Medical Decision Making - Medical Decision Making 47yo M with PMH of HTN, DM, HLD, COPD on home oxygen presenting with chest pain and shortness of breath. DDX including but not limited to COPD exacerbation, ACS, PNA, PE Labs, EKG, CXR 08/12/18 21:20 CBC WBC 8.6 K/mm3 (4.0-10.0) 08/12/18 21:00 RBC 4.07 M/mm3 (4.00-5.60) 08/12/18 21:00 Hgb 11.1 GM/dL (11.7-16.9) L 08/12/18 21:00 Hct 37.4 % (35.4-49) 08/12/18 21:00 MCV 91.8 fl (80-96) 08/12/18 21:00 MCH 27.3 pg (25.7-33.7) 08/12/18 21:00 MCHC 29.7 g/dl (32.0-35.9) L 08/12/18 21:00 RDW 17.4 % (11.9-15.9) H 08/12/18 21:00 Plt Count 286 K/MM3 (134-434) 08/12/18 21:00 MPV 8.0 fl (7.5-11.1) 08/12/18 21:00 Absolute Neuts (auto) 7.2 K/mm3 (1.5-8.0) 08/12/18 21:00 Neutrophils % 84.3 % (42.8-82.8) H 08/12/18 21:00 Lymphocytes % 7.0 % (8-40) L D 08/12/18 21:00 Monocytes % 6.9 % (3.8-10.2) 08/12/18 21:00 Eosinophils % 1.2 % (0-4.5) 08/12/18 21:00 Basophils % 0.6 % (0-2.0) 08/12/18 21:00 Nucleated RBC % 0 % (0-0) 08/12/18 21:00 No leukocytosis CMP Sodium 142 mmol/L (136-145) 08/12/18 21:00 Potassium 5.3 mmol/L (3.5-5.1) H 08/12/18 21:00 Chloride 111 mmol/L (98-107) H 08/12/18 21:00 Carbon Dioxide 23 mmol/L (21-32) 08/12/18 21:00 Anion Gap 8 MMOL/L (8-16) 08/12/18 21:00 BUN 40 mg/dL (7-18) H 08/12/18 21:00 Creatinine 2.3 mg/dL (0.55-1.3) H 08/12/18 21:00 Est GFR (CKD-EPI)AfAm 37.25 08/12/18 21:00 Est GFR (CKD-EPI)NonAf 32.14 08/12/18 21:00 Random Glucose 238 mg/dL (74-106) H 08/12/18 21:00 Calcium 8.6 mg/dL (8.5-10.1) 08/12/18 21:00 Magnesium 2.1 mg/dL (1.8-2.4) 08/12/18 21:00 Total Bilirubin 1.0 mg/dL (0.2-1) 08/12/18 21:00 AST 33 U/L (15-37) 08/12/18 21:00 ALT 29 U/L (13-61) 08/12/18 21:00 Alkaline Phosphatase 128 U/L (45-117) H 08/12/18 21:00 Creatine Kinase 600 U/L (26-308) H 08/12/18 21:00 Creatine Kinase Index 1.3 % (0.0-5.0) 08/12/18 21:00 CK-MB (CK-2) 8.2 ng/mL (0.5-3.6) H 08/12/18 21:00 Troponin I 0.02 ng/ml (0.00-0.05) 08/12/18 21:00 B-Natriuretic Peptide 3197.0 pg/ml (5-125) H 08/12/18 21:00 Total Protein 7.0 g/dl (6.4-8.2) 08/12/18 21:00 Albumin 2.8 g/dl (3.4-5.0) L 08/12/18 21:00 BNP elevated above patient's baseline Creatinine elevated 2.3, close to patient's baseline Difficult to interpret CXR due to limitations in imaging quality EKG: rate 97, Qtc 477, NSR Duonebs, Steroids, Azithromycin for COPD exacerbation Lasix for elevated BNP D-dimer elevated. Unable to get CT chest due to patient's poor renal function. Will plan to discuss potential empiric anticoagulation with inpatient team. Plan to admit 08/12/18 23:[address] Nixon who accepted patient for admission. She does not recommend starting anticoagulation for PE treatment at this time. 08/12/18 23:30 *DC/Admit/Observation/Transfer Diagnosis at time of Disposition: COPD exacerbation, Chest pain - Discharge Dispostion Condition at time of disposition: Guarded Decision to Admit order: Yes - Referrals - Patient Instructions - Post Discharge Activity
[2018-08-12] MEDS ORDERED: ASPIRIN COATED 81 MG TABLET.EC ONE (21:03)
[2018-08-12 21:26] LABS: INR 1.1 (0.83-1.09)
[2018-08-12 21:53] LABS: BASO % 0.6 % (0-2.0); EOS % 1.2 % (0-4.5); HEMATOCRIT 37.4 % (35.4-49); HEMOGLOBIN 11.1 GM/dL (11.7-16.9); MCH 27.3 pg (25.7-33.7); MCHC 29.7 g/dl (32.0-35.9); MEAN CELL VOLUME 91.8 fl (80-96); MONO % 6.9 % (3.8-10.2); NEUT % 84.3 % (42.8-82.8); RBC 4.07 M/mm3 (4.00-5.60); RDW 17.4 % (11.9-15.9); WHITE BLOOD COUNT 8.6 K/mm3 (4.0-10.0)
[2018-08-12 22:02] LABS: PLATELET COUNT 286 K/MM3 (134-434)
[2018-08-12] MEDS ORDERED: ALBUTEROL SO4 2.5/IPRATROPIUM 0.5 INH SOL 3 ML VIAL.NEB. NEB ONE ×2 (22:05→23:05)
[2018-08-12] MEDS ORDERED: AZITHROMYCIN IVPB 500 MG in DEXTROSE 5%-WATER - 250 ML IVPB ONE (22:05)
[2018-08-12 22:09] LABS: ALBUMIN 2.8 g/dl (3.4-5.0); CALCIUM 8.6 mg/dL (8.5-10.1); CREATININE 2.3 mg/dL (0.55-1.3); MAGNESIUM 2.1 mg/dL (1.8-2.4); POTASSIUM 5.3 mmol/L (3.5-5.1)
--- NOTE | 2018-08-12 22:09 | PDOC ---
Documentation entered by Denisa Mercado SCRIBE, acting as scribe for Jeffery Holland MD. Jeffery Holland MD: This documentation has been prepared by the Rogelio richardson Lincy, SCRIBE, under my direction and personally reviewed by me in its entirety. I confirm that the documentation accurately reflects all work, treatment, procedures, and medical decision making performed by me. Attending Attestation - Resident Resident Name: Laisha Bucio - ED Attending Attestation I have performed the following: I have examined & evaluated the patient, The case was reviewed & discussed with the resident, I agree w/resident's findings & plan, Exceptions are as noted - HPI HPI: 08/12/18 22:11 The patient is a 47-year-old male with a past medical history significant for morbid obesity, DM, HTN, HLD, COPD (on home O2, recently increased from 2L to 4L by PCP) presents to the emergency department with chest pain, SOB and a cough. The patient presents with shortness of breath, chest pain, and productive cough with greyish-white sputum production, with mild hemoptysis. The patient reports the chest pain is sharp and pleuritic in quality, with a severity of 6/10. The patient reports the pain presented while at rest, now aggravated with exertion. The patient reports hes been noncompliant with breathing treatments secondary to problems with the machine. Denies recent travel. Denies hx of blood clots. Patient reports a history of lymphedema, with increased leg swelling. 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 Allergies: NKDA PCP: Dr. Sukumar Ortiz. - Physicial Exam PE: 08/13/18 04:27 Agree with exam as documented by resident - Medical Decision Making 08/13/18 04:28 47M pmh DM, HTN, HLD, COPD c/o of cp and sob, consider COPD exacerbation, ACS, PNA, less likely PE f/u labs, cxr, ekg dispo per clinical course, likely admit
[2018-08-12] MEDS ORDERED: AZITHROMYCIN IVPB 500 MG/250 ML BAG IVPB ONE (22:42)
[2018-08-12] MEDS ORDERED: FUROSEMIDE 40 MG/4 ML INJECTABLE VIAL IVPUSH ONE (22:51)
[2018-08-12] MEDS ORDERED: FUROSEMIDE 40 MG/4 ML INJECTABLE VIAL ONE (23:05)
[2018-08-13] MEDS ORDERED: ALBUTEROL SO4 2.5/IPRATROPIUM 0.5 INH SOL 3 ML VIAL.NEB. NEB ONE ×2 (00:38→07:40)
[2018-08-13] MEDS ORDERED: ENOXAPARIN NA (PORCINE) 80 MG/0.8 ML DISP.SYRIN SQ SCH (03:15)
[2018-08-13] MEDS ORDERED: GABAPENTIN 100 MG CAPSULE (FP) ONE (04:44)
[2018-08-13] MEDS ORDERED: FERROUS SO4 325 MG TABLET (FP) ONE (04:44)
[2018-08-13] MEDS ORDERED: INSULIN (NOVOLOG MIX 70/30) 100 UNITS/ML MDV SQ ONE (04:44)
[2018-08-13] MEDS ORDERED: hydrALAZINE HCL 25 MG TABLET (FP) ONE (04:44)
[2018-08-13] MEDS: FERROUS SO4 325 MG TABLET (FP) PO SCH ×3 (05:25→23:00)
[2018-08-13] MEDS: hydrALAZINE HCL 10 MG TABLET PO SCH ×3 (05:25→23:00)
[2018-08-13] MEDS: GABAPENTIN 300 MG CAPSULE (FP) PO SCH ×3 (05:26→23:00)
[2018-08-13] MEDS ORDERED: INSULIN (NOVOLOG) ASPART 100 UNITS/ML 10ML VIAL ONE ×3 (05:33→18:23)
[2018-08-13] MEDS: INSULIN SLIDING SCALE (NOVOLOG) 1 VIAL SQ SCH ×5 (06:14→23:00)
[2018-08-13] MEDS ORDERED: INSULIN ASPART SCJ SCH (07:00)
[2018-08-13] MEDS ORDERED: INSULIN ASPART PROTAMINE SCJ SCH (07:00)
[2018-08-13 07:30] LABS: BASO % 0.4 % (0-2.0); EOS % 1.1 % (0-4.5); HEMATOCRIT 34.7 % (35.4-49); HEMOGLOBIN 10.6 GM/dL (11.7-16.9); LYMPH % 7.4 % (8-40); MCH 27.6 pg (25.7-33.7); MCHC 30.5 g/dl (32.0-35.9); MEAN CELL VOLUME 90.4 fl (80-96); MEAN PLT VOLUME 7.8 fl (7.5-11.1); MONO % 7.5 % (3.8-10.2); NEUT % 83.6 % (42.8-82.8); PLATELET COUNT 297 K/MM3 (134-434); RBC 3.83 M/mm3 (4.00-5.60); WHITE BLOOD COUNT 9.1 K/mm3 (4.0-10.0)
[2018-08-13 07:45] LABS: ALBUMIN 2.9 g/dl (3.4-5.0); BILIRUBIN,TOTAL 0.9 mg/dL (0.2-1); CALCIUM 8.2 mg/dL (8.5-10.1); CREATININE 2.4 mg/dL (0.55-1.3); POTASSIUM 4.8 mmol/L (3.5-5.1); TOT PROT 6.8 g/dl (6.4-8.2)
[2018-08-13] MEDS: ALBUTEROL SO4 2.5/IPRATROPIUM 0.5 INH SOL 3 ML VIAL.NEB. NEB PRN (08:04)
[2018-08-13] MEDS ORDERED: TAMSULOSIN HCL 0.4 MG CAP ONE (08:43)
[2018-08-13] MEDS: TAMSULOSIN HCL 0.4 MG CAP PO SCH (08:44)
[2018-08-13 09:09] LABS: ARTERIAL BLD GAS O2 SATURATION 87.2 % (95-98); ARTERIAL BLOOD GAS BASE EXCESS -1.4 meq/l (-2-2); ARTERIAL BLOOD GAS PCO2 50.2 mmHg (35-45); ARTERIAL BLOOD GAS PO2 60.2 mmHg (80-105); ARTERIAL BLOOD GAS pH 7.31 (7.35-7.45)
[2018-08-13 09:18] LABS: ALLENS TEST POSITIVE
[2018-08-13] MEDS ORDERED: HEPARIN NA (PORCINE) 5,000 UNITS/ML 1ML VIAL SQ SCH (10:00)
[2018-08-13] MEDS ORDERED: predniSONE 20 MG TABLET (UD) PO SCH (10:00)
[2018-08-13] MEDS: NIFEdipine E.R. 90 MG TABLET (FP) PO SCH ×2 (10:48→11:10)
[2018-08-13] MEDS: ASPIRIN 81 MG CHEWABLE TABLETS PO SCH (10:48)
[2018-08-13] MEDS: FUROSEMIDE 40 MG/4 ML INJECTABLE VIAL IVPUSH SCH (10:48)
[2018-08-13] MEDS: DOCUSATE SODIUM 100 MG CAPSULE (FP) PO SCH (10:48)
[2018-08-13] MEDS: methylPREDNISolone NA SUCC 40 MG/1 ML VIAL IVPUSH SCH ×2 (10:49→18:11)
[2018-08-13] MEDS: CEFTRIAXONE 1 GM in DEXTROSE 5%-WATER - 50 ML IVPB SCH (10:49)
[2018-08-13] MEDS ORDERED: ASPIRIN 81 MG CHEWABLE TABLETS ONE (11:08)
[2018-08-13] MEDS: BUDESONIDE/FORMETEROL FUMARATE 160/4.5 mcg INHALER IH SCH ×2 (11:36→23:02)
[2018-08-13] MEDS: AZITHROMYCIN IVPB 250 MG in DEXTROSE 5%-WATER - 250 ML IVPB SCH (11:37)
--- NOTE | 2018-08-13 12:32 | ECHO ---
Name: ELOY OSBORNE Exam:Adult Echocardiogram Study Date: 08/13/2018 07:43 AM Age: 47 yrs Reason For Study: CHF Height: 65 in Weight: 440 lb BSA: 2.8 m2 MMode/2D Measurements & Calculations IVSd: 1.4 cm Ao root diam: 3.8 cm LVIDd: 4.1 cm LA dimension: 3.8 cm LVIDs: 3.2 cm ACS: 1.4 cm LVPWd: 1.8 cm IVSs: 1.5 cm LVPWs: 2.0 cm EDV(Teich): 75.4 ml ESV(Teich): 40.4 ml LVOT diam: 2.0 cm Doppler Measurements & Calculations MV E max rashad: 68.1 cm/sec Ao V2 max: 211.1 cm/sec MV A max rashad: 86.4 cm/sec Ao max P.9 mmHg MV E/A: 0.79 Ao V2 mean: 157.0 cm/sec Ao mean P.2 mmHg Ao V2 VTI: 37.0 cm DARON(I,D): 1.6 cm2 DARON(V,D): 1.3 cm2 LV V1 max P.3 mmHg SV(LVOT): 57.3 ml LV V1 mean P.3 mmHg LV V1 max: 82.1 cm/sec LV V1 mean: 70.3 cm/sec LV V1 VTI: 17.4 cm TR max rashad: 302.0 cm/sec Lat Peak E' Rashad: 5.8 cm/sec TR max P.5 mmHg Lat E/e': 11.7 RVSP(TR): 46.5 mmHg RAP systole: 10.0 mmHg Procedure The study was technically difficult with many images being suboptimal in quality. Left Ventricle Left ventricular systolic function is grossly normal. Ejection Fraction = 50-55%. The transmitral spe ctral Doppler flow pattern is suggestive of impaired LV relaxation. Flattened septum is consistent with RV pressure overload. Right Ventricle The right ventricle is mild to moderately dilated. The right ventricular systolic function is mildly reduced. Atria Normal left and right atrial size and function. Mitral Valve The mitral valve is normal in structure and function. There is no mitral valve stenosis. Tricuspid Valve The tricuspid valve is not well visualized, but is grossly normal. There is mild to moderate tricuspi d regurgitation. Right ventricular systolic pressure is elevated at 40-50mmHg. Aortic Valve There is moderate aortic sclerosis.;. No hemodynamically significant valvular aortic stenosis. No aor tic regurgitation is present. Pulmonic Valve The pulmonic valve is not well visualized. Great Vessels Mild aortic root dilatation. Pericardium/Pleura There is no pericardial effusion. Interpretation Summary The study was technically difficult with many images being suboptimal in quality. Left ventricular systolic function is grossly normal. Ejection Fraction = 50-55%. The transmitral spectral Doppler flow pattern is suggestive of impaired LV relaxation. Flattened septum is consistent with RV pressure overload. The right ventricle is mild to moderately dilated. The right ventricular systolic function is mildly reduced. There is mild to moderate tricuspid regurgitation. Right ventricular systolic pressure is elevated at 40-50mmHg. There is moderate aortic sclerosis.; Mild aortic root dilatation. There is no pericardial effusion. MD Goldman *Leandra 08/13/2018 12:32 PM
--- NOTE | 2018-08-13 12:34 | CON.CARD ---
Consult Consult Specialty:: Cardiology Reason for Consultation:: sob - History of Present Illness History of Present Illness: The patient is a 47-year-old male with a past medical history significant for morbid obesity, DM, HTN, HLD, COPD (on home O2, recently increased from 2L to 4L by PCP) presents to the emergency department with chest pain, SOB and a cough. The patient presents with shortness of breath, chest pain, and productive cough with greyish-white sputum production, with mild hemoptysis. The patient reports the chest pain is sharp and pleuritic in quality, with a severity of 6/10. The patient reports the pain presented while at rest, now aggravated with exertion. The patient reports hes been noncompliant with breathing treatments secondary to problems with the machine. Denies recent travel. Denies hx of blood clots. Patient reports a history of lymphedema, with increased leg swelling. 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 Allergies: NKDA PCP: Dr. Sukumar Ortiz. - History Source History Provided By: Patient, Medical Record - Past Medical History Cardio/Vascular: Yes: HTN, Hyperlipdemia, Pulmonary Hypertension, Other (morbid obesity; sedentary) Pulmonary: Yes: Bronchitis, COPD Renal/: Yes: Renal Inusuff Psych: Yes: Anxiety Endocrine: Yes: Diabetes Mellitus - Past Surgical History Past Surgical History: Yes: Arthrosocopy (b/l knees) - Alcohol/Substance Use Hx Alcohol Use: No History of Substance Use: reports: None - Smoking History Smoking history: Unknown if ever smoked Have you smoked in the past 12 months: No Aproximately how many cigarettes per day: 0 If you are a former smoker, when did you quit?: 1998 Home Medications - Allergies Allergies/Adverse Reactions: Allergies Allergy/AdvReac Type Severity Reaction Status Date / Time No Known Allergies Allergy Verified 08/12/18 20:42 Review of Systems - Review of Systems Constitutional: reports: No Symptoms Eyes: reports: No Symptoms HENT: reports: No Symptoms Neck: reports: No Symptoms Cardiovascular: reports: Edema Respiratory: reports: No Symptoms, SOB, SOB on Exertion Gastrointestinal: reports: No Symptoms Genitourinary: reports: No Symptoms Breasts: reports: No Symptoms Reported Musculoskeletal: reports: No Symptoms Integumentary: reports: No Symptoms Neurological: reports: No Symptoms Endocrine: reports: No Symptoms Hematology/Lymphatic: reports: No Symptoms Psychiatric: reports: No Symptoms Vital Signs: Vital Signs Temperature 99.2 F 08/13/18 11:11 Pulse Rate 107 H 08/13/18 11:11 Respiratory Rate 26 H 08/13/18 11:11 Blood Pressure 141/67 08/13/18 11:11 O2 Sat by Pulse Oximetry (%) 90 L 08/13/18 11:11 Constitutional: Yes: Well Nourished, No Distress, Calm Eyes: Yes: WNL, Conjunctiva Clear, EOM Intact HENT: Yes: WNL, Atraumatic, Normocephalic Neck: Yes: WNL, Supple, Trachea Midline Respiratory: Yes: WNL, Regular, CTA Bilaterally Gastrointestinal: Yes: WNL, Normal Bowel Sounds Renal/: Yes: WNL Cardiovascular: Yes: WNL, Regular Rate and Rhythm Heart Sounds: Yes: S1, S2 Musculoskeletal: Yes: WNL Extremities: Yes: WNL Edema: Yes Edema: LLE: 1+, RLE: 1+ Integumentary: Yes: WNL Neurological: Yes: WNL, Alert, Oriented ...Motor Strength: WNL Psychiatric: Yes: WNL, Alert, Oriented - Other Data Labs, Other Data: CBC, BMP 08/13/18 06:00 08/13/18 06:00 INR, PTT INR 1.10 (0.83-1.09) H 08/12/18 21:00 Troponin, BNP 08/12/18 08/13/18 08/13/18 21:00 03:03 09:14 Troponin I 0.02 0.02 0.03 B-Natriuretic Peptide 3197.0 H Troponin, BNP 08/12/18 08/13/18 08/13/18 21:00 03:03 09:14 Troponin I 0.02 0.02 0.03 B-Natriuretic Peptide 3197.0 H Laboratory Tests 08/12/18 08/12/18 08/12/18 21:00 21:00 21:00 WBC 8.6 RBC 4.07 Hgb 11.1 L Hct 37.4 MCV 91.8 MCH 27.3 MCHC 29.7 L RDW 17.4 H Plt Count 286 MPV 8.0 Absolute Neuts (auto) 7.2 Neutrophils % 84.3 H Lymphocytes % 7.0 L D Monocytes % 6.9 Eosinophils % 1.2 Basophils % 0.6 Nucleated RBC % 0 PT with INR 13.00 INR 1.10 H D-Dimer Anticoagulation Therapy Puncture Site ABG pH ABG pCO2 at Pt Temp ABG pO2 at Pt Temp ABG HCO3 ABG O2 Sat (Measured) ABG O2 Content ABG Base Excess Arsalan Test O2 Delivery Device Oxygen Flow Rate Vent Mode Vent Rate Mechanical Rate Pressure Support Vent Sodium 142 Potassium 5.3 H Chloride 111 H Carbon Dioxide 23 Anion Gap 8 BUN 40 H Creatinine 2.3 H Est GFR (CKD-EPI)AfAm 37.25 Est GFR (CKD-EPI)NonAf 32.14 POC Glucometer Random Glucose 238 H Calcium 8.6 Magnesium 2.1 Total Bilirubin 1.0 AST 33 ALT 29 Alkaline Phosphatase 128 H Creatine Kinase 600 H Creatine Kinase Index 1.3 CK-MB (CK-2) 8.2 H Troponin I 0.02 B-Natriuretic Peptide 3197.0 H Total Protein 7.0 Albumin 2.8 L 08/12/18 08/13/18 08/13/18 21:00 03:03 05:21 WBC RBC Hgb Hct MCV MCH MCHC RDW Plt Count MPV Absolute Neuts (auto) Neutrophils % Lymphocytes % Monocytes % Eosinophils % Basophils % Nucleated RBC % PT with INR INR D-Dimer 1250 H Anticoagulation Therapy Puncture Site ABG pH ABG pCO2 at Pt Temp ABG pO2 at Pt Temp ABG HCO3 ABG O2 Sat (Measured) ABG O2 Content ABG Base Excess Arsalan Test O2 Delivery Device Oxygen Flow Rate Vent Mode Vent Rate Mechanical Rate Pressure Support Vent Sodium Potassium Chloride Carbon Dioxide Anion Gap BUN Creatinine Est GFR (CKD-EPI)AfAm Est GFR (CKD-EPI)NonAf POC Glucometer 202 Random Glucose Calcium Magnesium Total Bilirubin AST ALT Alkaline Phosphatase Creatine Kinase 460 H Creatine Kinase Index 1.3 CK-MB (CK-2) 6.0 H Troponin I 0.02 B-Natriuretic Peptide Total Protein Albumin 08/13/18 08/13/18 08/13/18 06:00 06:00 08:30 WBC 9.1 RBC 3.83 L Hgb 10.6 L Hct 34.7 L MCV 90.4 MCH 27.6 MCHC 30.5 L RDW 17.0 H Plt Count 297 MPV 7.8 Absolute Neuts (auto) 7.6 Neutrophils % 83.6 H Lymphocytes % 7.4 L Monocytes % 7.5 Eosinophils % 1.1 Basophils % 0.4 Nucleated RBC % 0 PT with INR INR D-Dimer Anticoagulation Therapy No Result Required. Puncture Site Right radial ABG pH 7.31 L ABG pCO2 at Pt Temp 50.2 H ABG pO2 at Pt Temp 60.2 L ABG HCO3 24.6 ABG O2 Sat (Measured) 87.2 L ABG O2 Content 12.8 L ABG Base Excess -1.4 Arsalan Test Positive O2 Delivery Device N/c Oxygen Flow Rate 6l Vent Mode No Result Required. Vent Rate No Result Required. Mechanical Rate No Result Required. Pressure Support Vent No Result Required. Sodium 142 Potassium 4.8 Chloride 109 H Carbon Dioxide 27 Anion Gap 6 L BUN 39 H Creatinine 2.4 H Est GFR (CKD-EPI)AfAm 35.38 Est GFR (CKD-EPI)NonAf 30.53 POC Glucometer Random Glucose 205 H Calcium 8.2 L Magnesium Total Bilirubin 0.9 AST 12 L ALT 25 Alkaline Phosphatase 121 H Creatine Kinase Creatine Kinase Index CK-MB (CK-2) Troponin I B-Natriuretic Peptide Total Protein 6.8 Albumin 2.9 L 08/13/18 09:14 WBC RBC Hgb Hct MCV MCH MCHC RDW Plt Count MPV Absolute Neuts (auto) Neutrophils % Lymphocytes % Monocytes % Eosinophils % Basophils % Nucleated RBC % PT with INR INR D-Dimer Anticoagulation Therapy Puncture Site ABG pH ABG pCO2 at Pt Temp ABG pO2 at Pt Temp ABG HCO3 ABG O2 Sat (Measured) ABG O2 Content ABG Base Excess Arsalan Test O2 Delivery Device Oxygen Flow Rate Vent Mode Vent Rate Mechanical Rate Pressure Support Vent Sodium Potassium Chloride Carbon Dioxide Anion Gap BUN Creatinine Est GFR (CKD-EPI)AfAm Est GFR (CKD-EPI)NonAf POC Glucometer Random Glucose Calcium Magnesium Total Bilirubin AST ALT Alkaline Phosphatase Creatine Kinase 412 H Creatine Kinase Index 1.2 CK-MB (CK-2) 5.3 H Troponin I 0.03 B-Natriuretic Peptide Total Protein Albumin Imaging - Results Chest X-ray: Pending EKG: Image Reviewed (sr wnl) Problem List - Problems (1) COPD exacerbation Code(s): J44.1 - CHRONIC OBSTRUCTIVE PULMONARY DISEASE W (ACUTE) EXACERBATION (2) Chest pain Code(s): R07.9 - CHEST PAIN, UNSPECIFIED (3) Acute exacerbation of CHF (congestive heart failure) Code(s): I50.9 - HEART FAILURE, UNSPECIFIED (4) Acute on chronic respiratory failure with hypoxia and hypercapnia Code(s): J96.21 - ACUTE AND CHRONIC RESPIRATORY FAILURE WITH HYPOXIA; J96.22 - ACUTE AND CHRONIC RESPIRATORY FAILURE WITH HYPERCAPNIA (5) Acute renal failure Code(s): N17.9 - ACUTE KIDNEY FAILURE, UNSPECIFIED (6) Back spasm Code(s): M62.830 - MUSCLE SPASM OF BACK (7) Diabetes Code(s): E11.9 - TYPE 2 DIABETES MELLITUS WITHOUT COMPLICATIONS (8) Diastolic CHF Code(s): I50.30 - UNSPECIFIED DIASTOLIC (CONGESTIVE) HEART FAILURE (9) Elevated CK Code(s): R74.8 - ABNORMAL LEVELS OF OTHER SERUM ENZYMES (10) Elevated troponin I level Code(s): R74.8 - ABNORMAL LEVELS OF OTHER SERUM ENZYMES (11) Hyperkalemia Code(s): E87.5 - HYPERKALEMIA (12) Hyperlipidemia Code(s): E78.5 - HYPERLIPIDEMIA, UNSPECIFIED (13) Hypertension Code(s): I10 - ESSENTIAL (PRIMARY) HYPERTENSION Qualifiers: Hypertension type: unspecified Qualified Code(s): I10 - Essential (primary ) hypertension (14) Kidney failure Code(s): N19 - UNSPECIFIED KIDNEY FAILURE (15) Kidney stone Code(s): N20.0 - CALCULUS OF KIDNEY (16) Morbid exogenous obesity Code(s): E66.01 - MORBID (SEVERE) OBESITY DUE TO EXCESS CALORIES (17) Morbid obesity Code(s): E66.01 - MORBID (SEVERE) OBESITY DUE TO EXCESS CALORIES (18) Obesity hypoventilation syndrome Code(s): E66.2 - MORBID (SEVERE) OBESITY WITH ALVEOLAR HYPOVENTILATION (19) Pulmonary HTN Code(s): I27.2 - OTHER SECONDARY PULMONARY HYPERTENSION * DO NOT USE * (20) Renal insufficiency Code(s): N28.9 - DISORDER OF KIDNEY AND URETER, UNSPECIFIED (21) Respiratory distress Code(s): R06.00 - DYSPNEA, UNSPECIFIED (22) Shortness of breath Code(s): R06.02 - SHORTNESS OF BREATH (23) Sleep apnea Code(s): G47.30 - SLEEP APNEA, UNSPECIFIED (24) Syncope Code(s): R55 - SYNCOPE AND COLLAPSE (25) Tachycardia Code(s): R00.0 - TACHYCARDIA, UNSPECIFIED (26) UTI (urinary tract infection) Code(s): N39.0 - URINARY TRACT INFECTION, SITE NOT SPECIFIED (27) Viral syndrome Code(s): B34.9 - VIRAL INFECTION, UNSPECIFIED Assessment/Plan DM, Morbid obesity, HTN, HLD, COPD (on home O2, recently increased from 2L to 4L by PCP) presents to the emergency department with chest pain, SOB and a cough. worsening CKD elevated BNP echo nl ef Plan r/o mi renal pulmonary consult consider IV LASIX if ok with renal SVCs
--- NOTE | 2018-08-13 13:34 | EKG ---
Test Reason : Blood Pressure : / mmHG Vent. Rate : 097 BPM Atrial Rate : 097 BPM P-R Int : 184 ms QRS Dur : 074 ms QT Int : 376 ms P-R-T Axes : 038 015 068 degrees QTc Int : 477 ms NORMAL SINUS RHYTHM NORMAL ECG WHEN COMPARED WITH ECG OF 21-OCT-2016 10:43, NO SIGNIFICANT CHANGE WAS FOUND Confirmed by EVERETTE AGUILAR MD ([id number]) on 08/13/2018 1:34:19 PM Referred By: Confirmed By:EVERETTE AGUILAR MD
--- NOTE | 2018-08-13 13:35 | CONSULT ---
Consult Consult Specialty:: Nephrology Reason for Consultation:: CKD - History of Present Illness Chief Complaint: shortness of breath History of Present Illness: Pt is a 47 year old male with pmhx of CKD, morbid obesity, HTN, DM, COPD on 4 liters home O2, and HLD who presents to the ER with increased shortness of breath and chest pain. He complains of worsening lower ext edema. He is not on diuretics at home. I was called to evaluate him for elevated creatinine. He denies dysuria or hematuria. He has not followed up as outpt. He has not completed his cardiology eval for bariatric surgery. He denies nsaid use. - History Source History Provided By: Patient, Medical Record - Past Medical History Cardio/Vascular: Yes: HTN, Hyperlipdemia, Pulmonary Hypertension, Other (morbid obesity; sedentary) Pulmonary: Yes: Bronchitis, COPD Renal/: Yes: Renal Inusuff Psych: Yes: Anxiety Endocrine: Yes: Diabetes Mellitus - Past Surgical History Past Surgical History: Yes: Arthrosocopy (b/l knees) - Alcohol/Substance Use Hx Alcohol Use: No History of Substance Use: reports: None - Smoking History Smoking history: Unknown if ever smoked Have you smoked in the past 12 months: No Aproximately how many cigarettes per day: 0 If you are a former smoker, when did you quit?: 1998 Home Medications - Allergies Allergies/Adverse Reactions: Allergies Allergy/AdvReac Type Severity Reaction Status Date / Time No Known Allergies Allergy Verified 08/12/18 20:42 Family Disease History - Family Disease History Family History: Denies Review of Systems - Review of Systems Constitutional: reports: Malaise. denies: Chills, Fever Eyes: reports: No Symptoms HENT: reports: No Symptoms Neck: reports: No Symptoms Cardiovascular: reports: Chest Pain, Edema, Shortness of Breath Respiratory: reports: Cough, SOB, SOB on Exertion Gastrointestinal: reports: No Symptoms Genitourinary: reports: No Symptoms Musculoskeletal: reports: No Symptoms Integumentary: reports: No Symptoms Neurological: reports: No Symptoms Endocrine: reports: No Symptoms Hematology/Lymphatic: reports: No Symptoms Psychiatric: reports: No Symptoms Physical Exam Vital Signs: Vital Signs Temperature 99.2 F 08/13/18 11:11 Pulse Rate 107 H 08/13/18 11:11 Respiratory Rate 26 H 08/13/18 11:11 Blood Pressure 141/67 08/13/18 11:11 O2 Sat by Pulse Oximetry (%) 90 L 08/13/18 11:11 Constitutional: Yes: Calm Eyes: Yes: Conjunctiva Clear HENT: Yes: Atraumatic Neck: Yes: Supple Cardiovascular: Yes: S1, S2 Respiratory: Yes: On Nasal O2 Gastrointestinal: Yes: Soft, Abdomen, Obese Renal/: Yes: Ibrahim Present Musculoskeletal: Yes: WNL Edema: Yes Edema: LUE: Trace, RUE: Trace, LLE: 2+, RLE: 2+ Neurological: Yes: Oriented Psychiatric: Yes: Oriented Labs: CBC, BMP 08/13/18 06:00 08/13/18 06:00 Laboratory Tests 10/19/16 10/20/16 10/22/16 05:20 05:15 06:30 Creatinine 2.3 H D 1.8 H Urine Protein Urine Blood GORDON Screen Negative c-ANCA <1:20 Proteinase 3 (PR3) <3.5 p-ANCA <1:20 Atypical p-ANCA <1:20 Myeloperoxidase Ab <9.0 10/24/16 10/24/16 10/25/16 06:00 21:30 08:55 Creatinine 1.8 H 2.1 H Urine Protein 2+ H Urine Blood 2+ H GORDON Screen c-ANCA Proteinase 3 (PR3) p-ANCA Atypical p-ANCA Myeloperoxidase Ab 10/26/16 08/12/18 08/13/18 09:13 21:00 06:00 Creatinine 2.1 H 2.3 H 2.4 H Urine Protein Urine Blood GORDON Screen c-ANCA Proteinase 3 (PR3) p-ANCA Atypical p-ANCA Myeloperoxidase Ab Imaging - Results Chest X-ray: Report Reviewed Ultrasound: Report Reviewed Problem List - Problems (1) CKD (chronic kidney disease) Code(s): N18.9 - CHRONIC KIDNEY DISEASE, UNSPECIFIED (2) COPD exacerbation Code(s): J44.1 - CHRONIC OBSTRUCTIVE PULMONARY DISEASE W (ACUTE) EXACERBATION (3) Acute exacerbation of CHF (congestive heart failure) Code(s): I50.9 - HEART FAILURE, UNSPECIFIED Assessment/Plan Current Medications Generic Name Dose Route Start Last Admin Trade Name Freq PRN Reason Stop Dose Admin Albuterol/Ipratropium 1 amp 08/13/18 02:56 08/13/18 08:04 Duoneb - NEB 1 amp Q6H PRN Administration SHORTNESS OF BREATH Aspirin 81 mg 08/13/18 10:00 08/13/18 10:48 Asa - PO 81 mg DAILY ZENON Administration Budesonide/Formoterol Fumarate 1 puff 08/13/18 10:00 08/13/18 11:36 Symbicort 160/4.5mcg - IH 1 puff BID ZENON Administration Docusate Sodium 100 mg 08/13/18 10:00 08/13/18 10:48 Colace - PO 100 mg DAILY ZENON Administration Enoxaparin Sodium 80 mg 08/13/18 03:15 08/13/18 03:19 Lovenox - SQ 80 mg Q12H ZENON Administration Ferrous Sulfate 325 mg 08/13/18 06:00 08/13/18 05:25 Feosol - PO 325 mg TID ZENON Administration Furosemide 40 mg 08/13/18 10:00 08/13/18 10:48 Lasix Injection - IVPUSH 40 mg DAILY ZENON Administration Gabapentin 300 mg 08/13/18 06:00 08/13/18 05:26 Neurontin - PO 300 mg TID ZENON Administration Hydralazine HCl 10 mg 08/13/18 06:00 08/13/18 05:25 Apresoline - PO 10 mg TID ZENON Administration Azithromycin 250 mg/ Dextrose 250 mls @ 250 mls/hr 08/13/18 10:00 08/13/18 11 :37 IVPB 250 mls/hr DAILY ZENON Administration Ceftriaxone Sodium 1 gm/ 50 mls @ 100 mls/hr 08/13/18 10:00 08/13/18 10:49 Dextrose IVPB 100 mls/hr DAILY ZENON Administration Protocol Insulin Aspart 1 vial 08/13/18 07:00 08/13/18 12:43 Novolog Vial Sliding Scale - SQ 6 units ACHS ZENON Administration Protocol Insulin Detemir 20 units 08/13/18 22:00 Levemir Vial SQ HS [facility] Methylprednisolone Sodium Succinate 40 mg 08/13/18 10:00 08/13/18 10:49 Solu-Medrol - IVPUSH 40 mg Q8H-IV ZENON Administration Nifedipine 90 mg 08/13/18 10:00 08/13/18 11:10 Procardia Xl - PO Not Given DAILY ZENON Rosuvastatin Calcium 5 mg 08/13/18 22:00 Crestor - PO HS ZENON Tamsulosin HCl 0.4 mg 08/13/18 08:30 08/13/18 08:44 Flomax - PO 0.4 mg DAILY@0830 ZENON Administration Impression 1. CKD 2. dyspnea 3. morbid obesity 4. DM 5. HTN 6. likely sleep apnea 7. chest pain 8. hyperkalemia Plan - check ua with pr to nutrition services assistant ratio - agree with lasix - monitor urine output - monitor bp - cardio input appreciated - recommend weight loss - check echo
--- NOTE | 2018-08-13 14:30 | PN ---
Progress Note (short form) - Note Progress Note: PULMONARY CONSULTATION DICTATED 08/13/18 IMP ACUTE ON CHRONIC HYPOXEMIC RESPIRATORY FAILURE CHRONIC HYPOXEMIC/HYPERCAPNEIC RESPIRATORY FAILURE COPD EXACERBATION DIASTOLIC HF CHEST PAIN PULMONARY HTN COR PULMONALE OBESITY-HYPOVENTILATION SYNDROME ACUTE ON CHRONIC KIDNEY DISEASE HTN DM TATI PLAN NIPPV TO HELP REDUCE WORK OF BREATHING O2 TO MAINTAIN O2 SAT 90% OR GREATER MEDROL ABX INHALED BRONCHODILATORS LASIX DAILY WT DVT PROPHYLAXIS DUPLEX LOWER EXTREMITIES MONITOR LYTES,RENAL FUNCTION STRICT I+OS CARDIAC ENZYMES F/U ABGS DR SALVADOR Problem List - Problems (1) CKD (chronic kidney disease) Code(s): N18.9 - CHRONIC KIDNEY DISEASE, UNSPECIFIED (2) COPD exacerbation Code(s): J44.1 - CHRONIC OBSTRUCTIVE PULMONARY DISEASE W (ACUTE) EXACERBATION (3) Acute exacerbation of CHF (congestive heart failure) Code(s): I50.9 - HEART FAILURE, UNSPECIFIED (4) Acute on chronic respiratory failure with hypoxia and hypercapnia Code(s): J96.21 - ACUTE AND CHRONIC RESPIRATORY FAILURE WITH HYPOXIA; J96.22 - ACUTE AND CHRONIC RESPIRATORY FAILURE WITH HYPERCAPNIA (5) Acute renal failure Code(s): N17.9 - ACUTE KIDNEY FAILURE, UNSPECIFIED (6) Diabetes Code(s): E11.9 - TYPE 2 DIABETES MELLITUS WITHOUT COMPLICATIONS (7) Hypertension Code(s): I10 - ESSENTIAL (PRIMARY) HYPERTENSION Qualifiers: Hypertension type: unspecified Qualified Code(s): I10 - Essential (primary ) hypertension (8) Morbid exogenous obesity Code(s): E66.01 - MORBID (SEVERE) OBESITY DUE TO EXCESS CALORIES (9) Morbid obesity Code(s): E66.01 - MORBID (SEVERE) OBESITY DUE TO EXCESS CALORIES (10) Obesity hypoventilation syndrome Code(s): E66.2 - MORBID (SEVERE) OBESITY WITH ALVEOLAR HYPOVENTILATION (11) Pulmonary HTN Code(s): I27.2 - OTHER SECONDARY PULMONARY HYPERTENSION * DO NOT USE * (12) Respiratory distress Code(s): R06.00 - DYSPNEA, UNSPECIFIED (13) Shortness of breath Code(s): R06.02 - SHORTNESS OF BREATH (14) Sleep apnea Code(s): G47.30 - SLEEP APNEA, UNSPECIFIED (15) Acute on chronic kidney failure Code(s): N17.9 - ACUTE KIDNEY FAILURE, UNSPECIFIED; N18.9 - CHRONIC KIDNEY DISEASE, UNSPECIFIED
--- NOTE | 2018-08-13 15:37 | CONS ---
DATE OF CONSULTATION: 08/13/2018 PULMONARY CONSULTATION REFERRING PHYSICIAN: Laisha Nixon MD HISTORY OF PRESENT ILLNESS: The patient is a 47-year-old black male with past medical history of morbid obesity, obesity hypoventilation syndrome, pulmonary hypertension, diastolic heart failure, cor pulmonale, hypertension, hyperlipidemia, COPD, O2 dependent on 4 L, history of tobacco use, quit years ago, admitted to [facility] with a complaint of chest pain, shortness of breath, and cough. Patient states for the past 2 days started to notice increasing chest discomfort increasing with inspiration. Also had a cough productive of grayish-yellow sputum. Denied any hemoptysis. Denied any fevers or chills. He states that he started developing increasing shortness of breath. Apparently, he has not been taking his respiratory treatments over the past month secondary to problems with his nebulizer. Patient presented to the emergency room with the above and was found to be in moderate respiratory distress and hypoxic. His O2 was increased to 6 L. He was initially started on BiPAP but refused secondary to discomfort of the mask. He denies any history of DVT or PE in the past. There is no history of recent travel. There is no family history of DVT or PE in the past. In the ER, the patient was evaluated by Dr. Jain for cardiology consultation as well as Dr. Martin for renal consultation and recommended IV Lasix. The patient also underwent an echo in the emergency room which revealed mildly reduced ventricular systolic function, moderately dilated right ventricle, diastolic heart failure, diastolic dysfunction, pulmonary hypertension with a resting right ventricular systolic pressure 40 to 50 mmHg. PAST MEDICAL HISTORY: Again includes COPD on home O2 with chronic hypoxic respiratory failure currently maintained on O2 at 4 L, hypertension, cor pulmonale, pulmonary hypertension, morbid obesity, obesity hypoventilation syndrome, hypertension, hyperlipidemia, and diabetes, and chronic kidney disease. REVIEW OF SYSTEMS: Positive for shortness of breath. Positive for dyspnea. Positive for cough. Positive for chest pain. No fever. No chills. No hemoptysis. No abdominal pain. Positive increasing lower extremity edema. MEDICATIONS: Prior to admission include aspirin, vitamin C, Feosol, Prilosec, Crestor, Tylenol, Symbicort, Robitussin DM, hydrochlorothiazide, Procardia XL, Spiriva, ibuprofen, Percocet, Flomax, Colace, hydralazine, MiraLAX, NovoLog. CURRENT MEDICATIONS: Include Symbicort, Solu-Medrol, Flomax, Zithromax, ceftriaxone, Lovenox, gabapentin, DuoNeb, Colace, Procardia, Apresoline, Crestor, Levemir, Feosol, Lasix, and aspirin. PHYSICAL EXAMINATION: General: Patient is a morbidly obese male, well developed, tachypneic. Vital Signs: O2 saturation is 83% on 6 L, respiratory rate is 26, heart rate is 107, temperature is 99.2. HEENT: Normocephalic, atraumatic. Neck: Supple. Heart: Tachycardic, S1, S2. Chest: Diminished breath sounds bilaterally. Abdomen: Soft, obese. Bowel sounds are present. Extremities: Bilateral lower extremity edema with chronic stasis changes bilaterally. LABORATORY STUDIES: A D-dimer is 1250. WBC is 9.1, hemoglobin 10.6, hematocrit 34.7, platelet count of 297,000. Blood gas pH 7.31, PCO2 of 50, a PO2 of 60, a bicarbonate of 26, and a saturation of 87, that was on 6 L nasal cannula at 8:30 this morning. CHEST X-RAY: Reveals excessive soft tissue with no definitive infiltrates or effusions. IMPRESSION: 1. Acute on chronic hypoxemic respiratory failure. 2. Chronic hypoxemic hypercapnic respiratory failure. 3. Chronic obstructive pulmonary disease with acute exacerbation. 4. Likely acute on chronic congestive heart failure. 5. Chest pain syndrome. 6. Pulmonary hypertension. 7. Cor pulmonale. 8. Obesity hypoventilation syndrome. 9. Acute on chronic kidney disease. 10. Hypertension. 11. Diabetes. 12. Obstructive sleep apnea. PLAN: NIPPV to help reduce work of breathing and oxygenation. Supplemental O2 to maintain O2 saturation 90% or greater. Solu-Medrol. Antibiotics. Inhaled bronchodilators. Continue the Lasix. Daily weight. DVT prophylaxis. Duplex lower extremities. Monitor renal function and electrolytes. Strict I's and O's. Cardiac enzymes. Admit to ICU. THAI SALVADOR M.D. WILLIAN/[id number]
[2018-08-13] MEDS ORDERED: methylPREDNISolone NA SUCC 40 MG/1 ML VIAL ONE (18:03)
--- NOTE | 2018-08-13 19:10 | CONSULT ---
Consultation: REQUESTING PROVIDER: CONSULT REQUEST: We have been asked to medically evaluate this patient for acute on chronic hypoxemic respiratory failure. HISTORY OF PRESENT ILLNESS: Patient is a 47 year old male with past medical history of DM, HTN, HLD, COPD ( on 4L NC), CKD, lymphedema, morbid obesity, obesity hypoventilation syndrome, pulmonary hypertension, and diastolic CHF presented to the ED due to worsening shortness of breath, chest pain and productive cough for 1 week. Patient went to his PCP's office, and his oxygen was increased to 4L NC. Two days ago, patient experienced worsening of SOB, accompanied by sharp, pleuritic chest pain that is relieved by rest and aggravated by exertion. He also experienced cough productive of whitish sputum, no hemoptysis. Patient denies fever, chills headache, abdominal pain, diarrhea, urinary symptoms. Last night, patient experienced worsening of his SOB, and he subsequently came to the ED. Upon arrival, patient was noted to be in moderate respiratory distress and hypoxic. He was placed on bipap and patient reported improvement of symptoms.. REVIEW OF SYSTEMS: CONSTITUTIONAL: Absent: fever, chills, diaphoresis, generalized weakness, malaise, loss of appetite, weight change HEENT: Absent: rhinorrhea, nasal congestion, throat pain, throat swelling, difficulty swallowing, mouth swelling, ear pain, eye pain, visual changes CARDIOVASCULAR: chest pain Absent: syncope, palpitations, irregular heart rate, lightheadedness, peripheral edema RESPIRATORY: cough, shortness of breath Absent: dyspnea with exertion, orthopnea, wheezing, stridor, hemoptysis GASTROINTESTINAL: Absent: abdominal pain, abdominal distension, nausea, vomiting, diarrhea, constipation, melena, hematochezia GENITOURINARY: Absent: dysuria, frequency, urgency, hesitancy, hematuria, flank pain, genital pain MUSCULOSKELETAL: Absent: myalgia, arthralgia, joint swelling, back pain, neck pain SKIN: Absent: rash, itching, pallor HEMATOLOGIC/IMMUNOLOGIC: Absent: easy bleeding, easy bruising, lymphadenopathy, frequent infections ENDOCRINE: Absent: unexplained weight gain, unexplained weight loss, heat intolerance, cold intolerance NEUROLOGIC: Absent: headache, focal weakness or paresthesias, dizziness, unsteady gait, seizure, mental status changes, bladder or bowel incontinence PSYCHIATRIC: Absent: anxiety, depression, suicidal or homicidal ideation, hallucinations. PHYSICAL EXAMINATION Vital Signs - 24 hr 08/12/18 08/12/18 08/13/18 20:38 21:17 00:32 Temperature 98.0 F 98.2 F Pulse Rate 99 H Pulse Rate [ 98 H Left Radial] Respiratory 16 20 Rate Blood Pressure 173/80 H Blood Pressure 150/75 [Left Arm] O2 Sat by Pulse 90 L 99 95 Oximetry (%) 08/13/18 08/13/18 08/13/18 03:01 03:31 05:32 Temperature 98.2 F 98.2 F 98.2 F Pulse Rate Pulse Rate [ 90 101 H 90 Left Radial] Respiratory 20 20 20 Rate Blood Pressure Blood Pressure 166/80 180/87 H 145/92 [Left Arm] O2 Sat by Pulse 95 96 96 Oximetry (%) 08/13/18 08/13/18 08/13/18 07:00 07:25 07:35 Temperature 98.7 F 98.7 F Pulse Rate 96 H Pulse Rate [ 96 H Left Radial] Respiratory 20 37 H Rate Blood Pressure 149/81 Blood Pressure 149/81 [Left Arm] O2 Sat by Pulse 95 92 L Oximetry (%) 08/13/18 08/13/18 08/13/18 11:11 14:46 14:56 Temperature 99.2 F 99.1 F Pulse Rate Pulse Rate [ 107 H 98 H Left Radial] Respiratory 26 H 20 Rate Blood Pressure Blood Pressure 141/67 152/84 [Left Arm] O2 Sat by Pulse 90 L 98 97 Oximetry (%) GENERAL: Awake, alert, and fully oriented, on bipap HEAD: Normal with no signs of trauma. EYES: PERRLA, EOMI, sclera anicteric, conjunctiva clear. EARS, NOSE, THROAT: oropharynx clear without exudates. Moist mucous membranes. NECK: Normal range of motion, supple. LUNGS: Diminished breath sounds bilaterally. HEART: Tachycardic, normal S1,S2 ABDOMEN: Soft, obese, nontender, not distended, normoactive bowel sounds MUSCULOSKELETAL: Normal range of motion at all joints. UPPER EXTREMITIES: 2+ pulses, warm, well-perfused. No peripheral edema. LOWER EXTREMITIES: 2+ pulses, warm, well-perfused. +lymphedema of b/l LE NEUROLOGICAL: Cranial nerves II-XII intact grossly intact. Normal speech. Gait not observed PSYCHIATRIC: Cooperative. Good eye contact. Appropriate mood and affect. SKIN: Warm, dry, normal turgor, no rashes or lesions noted. Laboratory Results - last 24 hr 08/12/18 08/12/18 08/12/18 21:00 21:00 21:00 WBC 8.6 RBC 4.07 Hgb 11.1 L Hct 37.4 MCV 91.8 MCH 27.3 MCHC 29.7 L RDW 17.4 H Plt Count 286 MPV 8.0 Absolute Neuts (auto) 7.2 Neutrophils % 84.3 H Lymphocytes % 7.0 L D Monocytes % 6.9 Eosinophils % 1.2 Basophils % 0.6 Nucleated RBC % 0 PT with INR 13.00 INR 1.10 H D-Dimer Anticoagulation Therapy Puncture Site ABG pH ABG pCO2 at Pt Temp ABG pO2 at Pt Temp ABG HCO3 ABG O2 Sat (Measured) ABG O2 Content ABG Base Excess Arsalan Test O2 Delivery Device Oxygen Flow Rate Vent Mode Vent Rate Mechanical Rate Pressure Support Vent Sodium 142 Potassium 5.3 H Chloride 111 H Carbon Dioxide 23 Anion Gap 8 BUN 40 H Creatinine 2.3 H Est GFR (CKD-EPI)AfAm 37.25 Est GFR (CKD-EPI)NonAf 32.14 POC Glucometer Random Glucose 238 H Hemoglobin A1c % Calcium 8.6 Magnesium 2.1 Total Bilirubin 1.0 AST 33 ALT 29 Alkaline Phosphatase 128 H Creatine Kinase 600 H Creatine Kinase Index 1.3 CK-MB (CK-2) 8.2 H Troponin I 0.02 B-Natriuretic Peptide 3197.0 H Total Protein 7.0 Albumin 2.8 L 08/12/18 08/13/18 08/13/18 21:00 03:03 05:21 WBC RBC Hgb Hct MCV MCH MCHC RDW Plt Count MPV Absolute Neuts (auto) Neutrophils % Lymphocytes % Monocytes % Eosinophils % Basophils % Nucleated RBC % PT with INR INR D-Dimer 1250 H Anticoagulation Therapy Puncture Site ABG pH ABG pCO2 at Pt Temp ABG pO2 at Pt Temp ABG HCO3 ABG O2 Sat (Measured) ABG O2 Content ABG Base Excess Arsalan Test O2 Delivery Device Oxygen Flow Rate Vent Mode Vent Rate Mechanical Rate Pressure Support Vent Sodium Potassium Chloride Carbon Dioxide Anion Gap BUN Creatinine Est GFR (CKD-EPI)AfAm Est GFR (CKD-EPI)NonAf POC Glucometer 202 Random Glucose Hemoglobin A1c % Calcium Magnesium Total Bilirubin AST ALT Alkaline Phosphatase Creatine Kinase 460 H Creatine Kinase Index 1.3 CK-MB (CK-2) 6.0 H Troponin I 0.02 B-Natriuretic Peptide Total Protein Albumin 08/13/18 08/13/18 08/13/18 06:00 06:00 06:00 WBC 9.1 RBC 3.83 L Hgb 10.6 L Hct 34.7 L MCV 90.4 MCH 27.6 MCHC 30.5 L RDW 17.0 H Plt Count 297 MPV 7.8 Absolute Neuts (auto) 7.6 Neutrophils % 83.6 H Lymphocytes % 7.4 L Monocytes % 7.5 Eosinophils % 1.1 Basophils % 0.4 Nucleated RBC % 0 PT with INR INR D-Dimer Anticoagulation Therapy Puncture Site ABG pH ABG pCO2 at Pt Temp ABG pO2 at Pt Temp ABG HCO3 ABG O2 Sat (Measured) ABG O2 Content ABG Base Excess Arsalan Test O2 Delivery Device Oxygen Flow Rate Vent Mode Vent Rate Mechanical Rate Pressure Support Vent Sodium 142 Potassium 4.8 Chloride 109 H Carbon Dioxide 27 Anion Gap 6 L BUN 39 H Creatinine 2.4 H Est GFR (CKD-EPI)AfAm 35.38 Est GFR (CKD-EPI)NonAf 30.53 POC Glucometer Random Glucose 205 H Hemoglobin A1c % 7.4 H Calcium 8.2 L Magnesium Total Bilirubin 0.9 AST 12 L ALT 25 Alkaline Phosphatase 121 H Creatine Kinase Creatine Kinase Index CK-MB (CK-2) Troponin I B-Natriuretic Peptide Total Protein 6.8 Albumin 2.9 L 08/13/18 08/13/18 08:30 09:14 WBC RBC Hgb Hct MCV MCH MCHC RDW Plt Count MPV Absolute Neuts (auto) Neutrophils % Lymphocytes % Monocytes % Eosinophils % Basophils % Nucleated RBC % PT with INR INR D-Dimer Anticoagulation Therapy No Result Required. Puncture Site Right radial ABG pH 7.31 L ABG pCO2 at Pt Temp 50.2 H ABG pO2 at Pt Temp 60.2 L ABG HCO3 24.6 ABG O2 Sat (Measured) 87.2 L ABG O2 Content 12.8 L ABG Base Excess -1.4 Arsalan Test Positive O2 Delivery Device N/c Oxygen Flow Rate 6l Vent Mode No Result Required. Vent Rate No Result Required. Mechanical Rate No Result Required. Pressure Support Vent No Result Required. Sodium Potassium Chloride Carbon Dioxide Anion Gap BUN Creatinine Est GFR (CKD-EPI)AfAm Est GFR (CKD-EPI)NonAf POC Glucometer Random Glucose Hemoglobin A1c % Calcium Magnesium Total Bilirubin AST ALT Alkaline Phosphatase Creatine Kinase 412 H Creatine Kinase Index 1.2 CK-MB (CK-2) 5.3 H Troponin I 0.03 B-Natriuretic Peptide Total Protein Albumin Active Medications Generic Name Dose Route Start Last Admin Trade Name Freq PRN Reason Stop Dose Admin Albuterol/Ipratropium 1 amp 08/13/18 02:56 08/13/18 08:04 Duoneb - NEB 1 amp Q6H PRN Administration SHORTNESS OF BREATH Aspirin 81 mg 08/13/18 10:00 08/13/18 10:48 Asa - PO 81 mg DAILY ZENON Administration Budesonide/Formoterol Fumarate 1 puff 08/13/18 10:00 08/13/18 11:36 Symbicort 160/4.5mcg - IH 1 puff BID ZENON Administration Docusate Sodium 100 mg 08/13/18 10:00 08/13/18 10:48 Colace - PO 100 mg DAILY ZENON Administration Enoxaparin Sodium 80 mg 08/13/18 03:15 08/13/18 03:19 Lovenox - SQ 80 mg Q12H ZENON Administration Ferrous Sulfate 325 mg 08/13/18 06:00 08/13/18 14:57 Feosol - PO 325 mg TID ZENON Administration Furosemide 40 mg 08/13/18 10:00 08/13/18 10:48 Lasix Injection - IVPUSH 40 mg DAILY ZENON Administration Gabapentin 300 mg 08/13/18 06:00 08/13/18 14:57 Neurontin - PO 300 mg TID ZENON Administration Hydralazine HCl 10 mg 08/13/18 06:00 08/13/18 14:57 Apresoline - PO 10 mg TID ZENON Administration Azithromycin 250 mg/ Dextrose 250 mls @ 250 mls/hr 08/13/18 10:00 08/13/18 11 :37 IVPB 250 mls/hr DAILY ZENON Administration Ceftriaxone Sodium 1 gm/ 50 mls @ 100 mls/hr 08/13/18 10:00 08/13/18 10:49 Dextrose IVPB 100 mls/hr DAILY ZENON Administration Protocol Insulin Aspart 1 vial 08/13/18 07:00 08/13/18 18:22 Novolog Vial Sliding Scale - SQ 4 units ACHS ZENON Administration Protocol Insulin Detemir 20 units 08/13/18 22:00 Levemir Vial SQ HS [facility] Methylprednisolone Sodium Succinate 40 mg 08/13/18 10:00 08/13/18 18:11 Solu-Medrol - IVPUSH 40 mg Q8H-IV ZENON Administration Nifedipine 90 mg 08/13/18 10:00 08/13/18 11:10 Procardia Xl - PO Not Given DAILY ZENON Rosuvastatin Calcium 5 mg 08/13/18 22:00 Crestor - PO HS ZENON Tamsulosin HCl 0.4 mg 08/13/18 08:30 08/13/18 08:44 Flomax - PO 0.4 mg DAILY@0830 ZENON Administration ASSESSMENT/PLAN: Patient is a 47 year old male with past medical history of DM, HTN, HLD, COPD ( on 4L NC), CKD, lymphedema, morbid obesity, obesity hypoventilation syndrome, pulmonary hypertension, and diastolic CHF presented to the ED due to worsening shortness of breath, chest pain and productive cough for 1 week. #Neurology -patient is alert, awake #Cardiovascular -Chest pain, rule out ACS -Diastolic CHF -SOB and chest pain, rule out PE -D-dimer 1250 -LE duplex to rule out DVT -Echo ordered -On Lovenox 80mg q12h, would consider switching to heparin in light of CKD if AC indicated -IV Lasix 40mg daily -I&O, daily weights. -Cardiology (Dr. Jain) consulted. Recommendations appreciated. #Pulmonology -Acute on chronic hypoxemic and hypercapneic respiratory failure -Hx of pulmonary hypertension -Obesity hypoventilation syndrome -COPD, in acute exacerbation -Continue NIPPV -Supplement O2, keep SpO2 >90% -IV solu-medrol 40mg q8 -Continue IV Ceftriaxone and Azithromycin -Duonebs q6h PRN -Continue IV Lasix -ABG and CXR in am #GI -on diabetic/sodium diet, as tolerated #Renal -Hx of CKD -Renal US: both kidneys are small and poorly visualized without gross evidence of hydronephrosis or renal stones. -Nephrology (Dr. Martin) consulted. Recommendations appreciated -UA with protein to creatinine ratio -Monitor urine output -Continue Lasix #ID -acute respiratory failure, rule out PNA -CXR: no sign of discrete infiltrate or pneumothorax -Continue IV Ceftriaxone and Azithromycin #Heme -Normocytic anemia, likely 2/2 CKD -will continue to monitor #FEN -Not on any standing fluids -Electrolytes wnl, routine bmp monitoring -Diabetic/sodium diet #Prophylaxis -On Lovenox 80mg sq q12h #Disposition -full code -ICU monitoring Dispo: We will continue to follow the patient. Thank you for this consultative opportunity. Visit type - Emergency Visit Emergency Visit: Yes ED Registration Date: 08/12/18 Care time: The patient presented to the Emergency Department on the above date and was hospitalized for further evaluation of their emergent condition. - New Patient This patient is new to me today: Yes Date on this admission: 08/13/18 - Critical Care Critical Care patient: Yes Total Critical Care Time (in minutes): 37 Critical Care Statement: The care of this patient involved high complexity decision making to prevent further life threatening deterioration of the patient 's condition and/or to evaluate & treat vital organ system(s) failure or risk of failure.
--- NOTE | 2018-08-13 21:29 | HP ---
Admitting History and Physical - Past Medical History Cardiovascular: Yes: HTN, Hyperlipdemia, Pulmonary Hypertension, Other (morbid obesity; sedentary) Pulmonary: Yes: Bronchitis, COPD Renal/: Yes: Renal Inusuff Psych: Yes: Anxiety Endocrine: Yes: Diabetes Mellitus - Past Surgical History Past Surgical History: Yes: Arthrosocopy (b/l knees) - Smoking History Smoking history: Unknown if ever smoked Have you smoked in the past 12 months: No Aproximately how many cigarettes per day: 0 If you are a former smoker, when did you quit?: 1998 - Alcohol/Substance Use Hx Alcohol Use: No History of Substance Use: reports: None Home Medications - Allergies Allergies/Adverse Reactions: Allergies Allergy/AdvReac Type Severity Reaction Status Date / Time No Known Allergies Allergy Verified 08/12/18 20:42 - Home Medications Home Medications: Ambulatory Orders Aspirin 81 mg PO DAILY 08/13/18 Gabapentin [Neurontin -] 300 mg PO Q8H 08/13/18 Hydralazine HCl 25 mg PO TID 08/13/18 Omeprazole 20 mg PO DAILY 08/13/18 Rosuvastatin [Crestor -] 5 mg PO HS 08/13/18 Physical Examination Vital Signs: Vital Signs Temperature 99.1 F 08/13/18 14:56 Pulse Rate 94 H 08/13/18 20:17 Respiratory Rate 26 H 08/13/18 20:17 Blood Pressure 168/85 08/13/18 20:17 O2 Sat by Pulse Oximetry (%) 95 08/13/18 20:17 Labs: CBC, BMP 08/13/18 06:00 08/13/18 06:00
[2018-08-13] MEDS ORDERED: CRESTOR 5 MG PO SCH (22:00)
[2018-08-13] MEDS: ROSUVASTATIN CA 5 MG TABLET (FP) PO SCH (23:00)
[2018-08-13] MEDS: INSULIN (LEVEMIR) 100 UNITS/ML UNITS SQ SCH (23:01)
[2018-08-14] MEDS: methylPREDNISolone NA SUCC 40 MG/1 ML VIAL IVPUSH SCH ×3 (01:58→17:39)
[2018-08-14 06:28] LABS: ARTERIAL BLD GAS O2 SATURATION 89.4 % (95-98); ARTERIAL BLOOD GAS BASE EXCESS -2.5 meq/l (-2-2); ARTERIAL BLOOD GAS PCO2 57.4 mmHg (35-45); ARTERIAL BLOOD GAS PO2 67.3 mmHg (80-105); ARTERIAL BLOOD GAS pH 7.26 (7.35-7.45)
[2018-08-14] MEDS: FERROUS SO4 325 MG TABLET (FP) PO SCH ×3 (06:31→22:19)
[2018-08-14] MEDS: hydrALAZINE HCL 10 MG TABLET PO SCH ×3 (06:31→22:19)
[2018-08-14] MEDS: GABAPENTIN 300 MG CAPSULE (FP) PO SCH ×3 (06:31→22:19)
[2018-08-14] MEDS: INSULIN SLIDING SCALE (NOVOLOG) 1 VIAL SQ SCH ×4 (06:31→22:20)
[2018-08-14 07:22] LABS: ALLENS TEST POSITIVE
[2018-08-14 08:10] LABS: BASO % 0.2 % (0-2.0); HEMATOCRIT 34.7 % (35.4-49); HEMOGLOBIN 10.6 GM/dL (11.7-16.9); LYMPH % 2.9 % (8-40); MCH 27.5 pg (25.7-33.7); MCHC 30.6 g/dl (32.0-35.9); MEAN CELL VOLUME 89.9 fl (80-96); MONO % 1.5 % (3.8-10.2); NEUT % 95.4 % (42.8-82.8); PLATELET COUNT 334 K/MM3 (134-434); RBC 3.86 M/mm3 (4.00-5.60); RDW 16.8 % (11.9-15.9); WHITE BLOOD COUNT 9.5 K/mm3 (4.0-10.0)
[2018-08-14 09:27] LABS: ALBUMIN 2.7 g/dl (3.4-5.0); BILIRUBIN,TOTAL 0.7 mg/dL (0.2-1); CALCIUM 8.6 mg/dL (8.5-10.1); CREATININE 2.5 mg/dL (0.55-1.3); MAGNESIUM 2.2 mg/dL (1.8-2.4); PHOSPHOROUS 4.2 mg/dL (2.5-4.9); POTASSIUM 5.8 mmol/L (3.5-5.1); TOT PROT 6.8 g/dl (6.4-8.2)
[2018-08-14] MEDS ORDERED: cefTRIAXone SODIUM 1 GM VIAL ONE (10:06)
[2018-08-14] MEDS ORDERED: DEXTROSE 5%-WATER - 50 ML IVPB ONE (10:06)
[2018-08-14] MEDS: FUROSEMIDE 40 MG/4 ML INJECTABLE VIAL IVPUSH SCH ×2 (10:18→14:35)
[2018-08-14] MEDS ORDERED: PT OWN MED DRAWER 7, Y5N ONE ×2 (10:49→12:46)
[2018-08-14] MEDS ORDERED: SODIUM BICARBONATE 8.4% 50 MEQ/50 ML VIAL IVPUSH ONE (11:02)
[2018-08-14] MEDS ORDERED: DEXTROSE 50%-WATER - 25 GM/50 ML VIAL IVPUSH ONE (11:02)
[2018-08-14] MEDS ORDERED: ALBUTEROL SO4 0.083% IH SOL 2.5 MG/3 ML VIAL.NEB. NEB PRN (11:02)
--- NOTE | 2018-08-14 11:02 | PN ---
Progress Note, Physician History of Present Illness: Pt seen and examined at bedside. He is awake and alert. He denies chest pain or shortness of breath. - Current Medication List Current Medications: Active Medications Albuterol/Ipratropium (Duoneb -) 1 amp NEB Q6H PRN PRN Reason: SHORTNESS OF BREATH Last Admin: 08/13/18 08:04 Dose: 1 amp Aspirin (Asa -) 81 mg PO DAILY [facility] Last Admin: 08/13/18 10:48 Dose: 81 mg Budesonide/Formoterol Fumarate (Symbicort 160/4.5mcg -) 1 puff IH BID [facility] Last Admin: 08/13/18 23:02 Dose: 1 puff Docusate Sodium (Colace -) 100 mg PO DAILY [facility] Last Admin: 08/13/18 10:48 Dose: 100 mg Enoxaparin Sodium (Lovenox -) 80 mg SQ Q12H [facility] Last Admin: 08/13/18 03:19 Dose: 80 mg Ferrous Sulfate (Feosol -) 325 mg PO TID [facility] Last Admin: 08/14/18 06:31 Dose: 325 mg Furosemide (Lasix Injection -) 40 mg IVPUSH DAILY [facility] Last Admin: 08/13/18 10:48 Dose: 40 mg Gabapentin (Neurontin -) 300 mg PO TID [facility] Last Admin: 08/14/18 06:31 Dose: 300 mg Hydralazine HCl (Apresoline -) 10 mg PO TID [facility] Last Admin: 08/14/18 06:31 Dose: 10 mg Azithromycin 250 mg/ Dextrose 250 mls @ 250 mls/hr IVPB DAILY [facility] Last Admin: 08/13/18 11:37 Dose: 250 mls/hr Ceftriaxone Sodium 1 gm/ (Dextrose) 50 mls @ 100 mls/hr IVPB DAILY [facility]; Protocol Last Admin: 08/13/18 10:49 Dose: 100 mls/hr Insulin Aspart (Novolog Vial Sliding Scale -) 1 vial SQ ACHS [facility]; Protocol Last Admin: 08/14/18 06:31 Dose: 6 units Insulin Detemir (Levemir Vial) 20 units SQ HS [facility] Last Admin: 08/13/18 23:01 Dose: 20 units Methylprednisolone Sodium Succinate (Solu-Medrol -) 40 mg IVPUSH Q8H-IV [facility] Last Admin: 08/14/18 01:58 Dose: 40 mg Nifedipine (Procardia Xl -) 90 mg PO DAILY [facility] Last Admin: 08/13/18 11:10 Dose: Not Given Rosuvastatin Calcium (Crestor -) 5 mg PO HS [facility] Last Admin: 08/13/18 23:00 Dose: 5 mg Tamsulosin HCl (Flomax -) 0.4 mg PO DAILY@0830 [facility] Last Admin: 08/13/18 08:44 Dose: 0.4 mg - Objective Vital Signs: Vital Signs Temperature 98.2 F 08/14/18 09:00 Pulse Rate 100 H 08/14/18 09:00 Respiratory Rate 20 08/14/18 09:00 Blood Pressure 154/89 08/14/18 09:00 O2 Sat by Pulse Oximetry (%) 91 L 08/14/18 08:41 Constitutional: Yes: Calm Eyes: Yes: Conjunctiva Clear HENT: Yes: Atraumatic Neck: Yes: Supple Cardiovascular: Yes: S1, S2 Respiratory: Yes: CTA Bilaterally Gastrointestinal: Yes: Soft, Abdomen, Obese Genitourinary: Yes: Ibrahim Present Musculoskeletal: Yes: WNL Edema: Yes Edema: LUE: 1+, RUE: 1+, LLE: 2+, RLE: 2+ Neurological: Yes: Oriented Psychiatric: Yes: Oriented Labs: CBC, BMP 08/14/18 06:23 08/14/18 06:23 INR, PTT INR 1.10 (0.83-1.09) H 08/12/18 21:00 Problem List - Problems (1) CKD (chronic kidney disease) Code(s): N18.9 - CHRONIC KIDNEY DISEASE, UNSPECIFIED (2) COPD exacerbation Code(s): J44.1 - CHRONIC OBSTRUCTIVE PULMONARY DISEASE W (ACUTE) EXACERBATION (3) Acute exacerbation of CHF (congestive heart failure) Code(s): I50.9 - HEART FAILURE, UNSPECIFIED Assessment/Plan Current Medications Generic Name Dose Route Start Last Admin Trade Name Freq PRN Reason Stop Dose Admin Albuterol/Ipratropium 1 amp 08/13/18 02:56 08/13/18 08:04 Duoneb - NEB 1 amp Q6H PRN Administration SHORTNESS OF BREATH Aspirin 81 mg 08/13/18 10:00 08/13/18 10:48 Asa - PO 81 mg DAILY [facility] Administration Budesonide/Formoterol Fumarate 1 puff 05/24/19 10:00 08/13/18 23:02 Symbicort 160/4.5mcg - IH 1 puff BID ZENON Administration Docusate Sodium 100 mg 08/13/18 10:00 08/13/18 10:48 Colace - PO 100 mg DAILY ZENON Administration Enoxaparin Sodium 80 mg 08/13/18 03:15 08/13/18 03:19 Lovenox - SQ 80 mg Q12H ZENON Administration Ferrous Sulfate 325 mg 08/13/18 06:00 08/14/18 06:31 Feosol - PO 325 mg TID ZENON Administration Furosemide 40 mg 08/13/18 10:00 08/13/18 10:48 Lasix Injection - IVPUSH 40 mg DAILY ZENON Administration Gabapentin 300 mg 08/13/18 06:00 08/14/18 06:31 Neurontin - PO 300 mg TID ZENON Administration Hydralazine HCl 10 mg 08/13/18 06:00 08/14/18 06:31 Apresoline - PO 10 mg TID ZENON Administration Azithromycin 250 mg/ Dextrose 250 mls @ 250 mls/hr 08/13/18 10:00 08/13/18 11 :37 IVPB 250 mls/hr DAILY ZENON Administration Ceftriaxone Sodium 1 gm/ 50 mls @ 100 mls/hr 08/13/18 10:00 08/13/18 10:49 Dextrose IVPB 100 mls/hr DAILY ZENON Administration Protocol Insulin Aspart 1 vial 08/13/18 07:00 08/14/18 06:31 Novolog Vial Sliding Scale - SQ 6 units ACHS [facility] Administration Protocol Insulin Detemir 20 units 08/13/18 22:00 08/13/18 23:01 Levemir Vial SQ 20 units HS ZENON Administration Methylprednisolone Sodium Succinate 40 mg 08/13/18 10:00 08/14/18 01:58 Solu-Medrol - IVPUSH 40 mg Q8H-IV ZENON Administration Nifedipine 90 mg 08/13/18 10:00 08/13/18 11:10 Procardia Xl - PO Not Given DAILY ZENON Rosuvastatin Calcium 5 mg 08/13/18 22:00 08/13/18 23:00 Crestor - PO 5 mg HS ZENON Administration Tamsulosin HCl 0.4 mg 08/13/18 08:30 05/24/19 08:44 Flomax - PO 0.4 mg DAILY@0830 ZENON Administration Impression 1. CKD 2. dyspnea 3. morbid obesity 4. DM 5. HTN 6. likely sleep apnea 7. chest pain 8. hyperkalemia Plan - will treat potassium medically - increase dose of lasix - will give a dose of metolazone as well - monitor renal function - cxr reviewed - monitor urine output - will re-order urine studies - recommend weight loss - check echo
--- NOTE | 2018-08-14 11:09 | PN ---
Progress Note, Physician Chief Complaint: Events noted Coverage for Dr. Jain and Gaurang Upper abdominal discomfort took [place] History of Present Illness: Patient was seen and examined. Awake and alert. Chart was reviewed Morbid obesity and on O2 NC - Current Medication List Current Medications: Active Medications Albuterol/Ipratropium (Duoneb -) 1 amp NEB Q6H PRN PRN Reason: SHORTNESS OF BREATH Last Admin: 08/13/18 08:04 Dose: 1 amp Aspirin (Asa -) 81 mg PO DAILY [facility] Last Admin: 08/13/18 10:48 Dose: 81 mg Budesonide/Formoterol Fumarate (Symbicort 160/4.5mcg -) 1 puff IH BID [facility] Last Admin: 08/13/18 23:02 Dose: 1 puff Docusate Sodium (Colace -) 100 mg PO DAILY [facility] Last Admin: 08/13/18 10:48 Dose: 100 mg Enoxaparin Sodium (Lovenox -) 80 mg SQ Q12H [facility] Last Admin: 08/13/18 03:19 Dose: 80 mg Ferrous Sulfate (Feosol -) 325 mg PO TID [facility] Last Admin: 08/14/18 06:31 Dose: 325 mg Furosemide (Lasix Injection -) 40 mg IVPUSH BID@0600,1400 [facility] Gabapentin (Neurontin -) 300 mg PO TID [facility] Last Admin: 08/14/18 06:31 Dose: 300 mg Hydralazine HCl (Apresoline -) 10 mg PO TID [facility] Last Admin: 08/14/18 06:31 Dose: 10 mg Azithromycin 250 mg/ Dextrose 250 mls @ 250 mls/hr IVPB DAILY [facility] Last Admin: 08/13/18 11:37 Dose: 250 mls/hr Ceftriaxone Sodium 1 gm/ (Dextrose) 50 mls @ 100 mls/hr IVPB DAILY [facility]; Protocol Last Admin: 08/13/18 10:49 Dose: 100 mls/hr Insulin Aspart (Novolog Vial Sliding Scale -) 1 vial SQ ACHS [facility]; Protocol Last Admin: 08/14/18 06:31 Dose: 6 units Insulin Detemir (Levemir Vial) 20 units SQ HS [facility] Last Admin: 08/13/18 23:01 Dose: 20 units Methylprednisolone Sodium Succinate (Solu-Medrol -) 40 mg IVPUSH Q8H-IV [facility] Last Admin: 05/25/19 01:58 Dose: 40 mg Metolazone (Zaroxolyn -) 2.5 mg PO ONCE ONE Stop: 08/14/18 11:03 Nifedipine (Procardia Xl -) 90 mg PO DAILY [facility] Last Admin: 08/13/18 11:10 Dose: Not Given Rosuvastatin Calcium (Crestor -) 5 mg PO HS [facility] Last Admin: 08/13/18 23:00 Dose: 5 mg Tamsulosin HCl (Flomax -) 0.4 mg PO DAILY@0830 [facility] Last Admin: 08/13/18 08:44 Dose: 0.4 mg - Objective Vital Signs: Vital Signs Temperature 98.2 F 08/14/18 09:00 Pulse Rate 100 H 08/14/18 09:00 Respiratory Rate 20 08/14/18 09:00 Blood Pressure 154/89 08/14/18 09:00 O2 Sat by Pulse Oximetry (%) 91 L 08/14/18 08:41 Eyes: Yes: PERRL HENT: Yes: Atraumatic Neck: Yes: Supple Cardiovascular: Yes: Tachycardia, S1, S2 Respiratory: Yes: Diminished, On Nasal O2 Gastrointestinal: Yes: Normal Bowel Sounds, Soft, Abdomen, Obese. No: Tenderness Edema: Yes Additional Findings/Remarks: - Review of Systems Constitutional: denies: Chills, Fever Cardiovascular: reports: Shortness of Breath. denies: Chest Pain, Palpitations Respiratory: reports: Cough, SOB, SOB on Exertion. denies: Hemoptysis, Orthopnea, Wheezing Gastrointestinal: denies: Abdominal Pain, Constipation, Diarrhea, Melena, Nausea , Rectal Bleeding, Vomiting Genitourinary: denies: Dysuria, Hematuria Musculoskeletal: denies: Back Pain, Joint Pain Neurological: denies: Dizziness, Headache, Seizure, Syncope Labs: CBC, BMP 08/14/18 06:23 08/14/18 06:23 INR, PTT INR 1.10 (0.83-1.09) H 08/12/18 21:00 - ....Imaging Chest X-ray: Report Reviewed (Cardiomegaly) Other: Report Reviewed (Echocardiography low normal LVEF 50-55%, mild to moderate TR, RV systolic dysfunction mild, pulmonary HTN) Problem List - Problems (1) CKD (chronic kidney disease) Code(s): N18.9 - CHRONIC KIDNEY DISEASE, UNSPECIFIED (2) COPD exacerbation Code(s): J44.1 - CHRONIC OBSTRUCTIVE PULMONARY DISEASE W (ACUTE) EXACERBATION (3) Acute exacerbation of CHF (congestive heart failure) Code(s): I50.9 - HEART FAILURE, UNSPECIFIED (4) Diabetes Code(s): E11.9 - TYPE 2 DIABETES MELLITUS WITHOUT COMPLICATIONS (5) Hyperlipidemia Code(s): E78.5 - HYPERLIPIDEMIA, UNSPECIFIED (6) Hypertension Code(s): I10 - ESSENTIAL (PRIMARY) HYPERTENSION Qualifiers: Hypertension type: unspecified Qualified Code(s): I10 - Essential (primary ) hypertension (7) Morbid obesity Code(s): E66.01 - MORBID (SEVERE) OBESITY DUE TO EXCESS CALORIES (8) Pulmonary HTN Code(s): I27.2 - OTHER SECONDARY PULMONARY HYPERTENSION * DO NOT USE * (9) Sleep apnea Code(s): G47.30 - SLEEP APNEA, UNSPECIFIED Assessment/Plan 1. COPD exacerbation dependent on home O2 2. Morbid obesity 3. HTN 4. Hypercholesterolemia 5. CKD 6. 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 Hyperglycemia/DM PLAN: 1. Continue Nifedipine ER and Hydralazine and uptitrate for labile HTN 2. Continue Diuretics including IV Furosemide and Metolazone 3. ASA 4. Statin (Rosuvastatin) 5. DVT prophylaxis 6. Steroid taper, bronchodilator, O2 and BIPAP as tolerated 7. Empiric antibiotics 8. Monitor renal function and electrolytes 9. Echocardiography report was reviewed Further plans are to follow Neno Bullard MD
[2018-08-14] MEDS ORDERED: CALCIUM GLUCONATE 10% - 1,000 MG/10 ML VIAL IVPB ONE (11:30)
[2018-08-14] MEDS ORDERED: SODIUM ZIRCONIUM CYCLOSILICATE (LOKELMA) 5 GM PACKET PO ONE (11:30)
[2018-08-14] MEDS: AZITHROMYCIN IVPB 250 MG in DEXTROSE 5%-WATER - 250 ML IVPB SCH (11:34)
[2018-08-14] MEDS ORDERED: INSULIN REGULAR HUMAN 100 UNITS/ML *VIAL SQ ONE (11:45)
[2018-08-14] MEDS: NIFEdipine E.R. 90 MG TABLET (FP) PO SCH (11:52)
[2018-08-14] MEDS: DOCUSATE SODIUM 100 MG CAPSULE (FP) PO SCH (11:52)
[2018-08-14] MEDS: TAMSULOSIN HCL 0.4 MG CAP PO SCH (11:52)
[2018-08-14] MEDS: ASPIRIN 81 MG CHEWABLE TABLETS PO SCH (11:53)
[2018-08-14] MEDS: BUDESONIDE/FORMETEROL FUMARATE 160/4.5 mcg INHALER IH SCH ×2 (11:53→22:20)
[2018-08-14] MEDS: CEFTRIAXONE 1 GM in DEXTROSE 5%-WATER - 50 ML IVPB SCH (11:53)
[2018-08-14] MEDS ORDERED: DEXTROSE 50%-WATER - 25 GM/50 ML VIAL ONE (12:09)
[2018-08-14 13:01] LABS: ANISOCYTOSIS 0; MACROCYTOSIS 0; PLATELET ESTIMATE NORMAL
[2018-08-14] MEDS ORDERED: METOLAZONE 2.5 MG TABLET (FP) PO ONE (13:30)
--- NOTE | 2018-08-14 13:34 | PN ---
Progress Note (short form) - Note Progress Note: NIPPV support overnight. Now 5 L NC with lunch. Breathing feels better. Intake & Output 08/11/18 08/12/18 08/13/18 08/14/18 23:59 23:59 23:59 23:59 Intake Total 250 Output Total 300 Balance -50 Weight 440 lb 440 lb Last Vital Signs Temp Pulse Resp BP Pulse Ox 98.2 F 100 H 20 154/89 91 L 08/14/18 09:00 08/14/18 09:00 08/14/18 09:00 08/14/18 09:00 08/14/18 08:41 Active Medications Albuterol Sulfate (Ventolin 0.083% Nebulizer Soln -) 1 amp NEB Q1H PRN PRN Reason: SHORT OF BREATH/WHEEZING Albuterol/Ipratropium (Duoneb -) 1 amp NEB Q6H PRN PRN Reason: SHORTNESS OF BREATH Last Admin: 08/13/18 08:04 Dose: 1 amp Aspirin (Asa -) 81 mg PO DAILY [facility] Last Admin: 08/14/18 11:53 Dose: 81 mg Budesonide/Formoterol Fumarate (Symbicort 160/4.5mcg -) 1 puff IH BID [facility] Last Admin: 08/14/18 11:53 Dose: 1 puff Docusate Sodium (Colace -) 100 mg PO DAILY [facility] Last Admin: 08/14/18 11:52 Dose: 100 mg Enoxaparin Sodium (Lovenox -) 80 mg SQ Q12H [facility] Last Admin: 08/13/18 03:19 Dose: 80 mg Ferrous Sulfate (Feosol -) 325 mg PO TID [facility] Last Admin: 08/14/18 06:31 Dose: 325 mg Furosemide (Lasix Injection -) 40 mg IVPUSH BID@0600,1400 [facility] Gabapentin (Neurontin -) 300 mg PO TID [facility] Last Admin: 08/14/18 06:31 Dose: 300 mg Hydralazine HCl (Apresoline -) 10 mg PO TID [facility] Last Admin: 08/14/18 06:31 Dose: 10 mg Azithromycin 250 mg/ Dextrose 250 mls @ 250 mls/hr IVPB DAILY [facility] Last Admin: 08/14/18 11:34 Dose: 250 mls/hr Ceftriaxone Sodium 1 gm/ (Dextrose) 50 mls @ 100 mls/hr IVPB DAILY [facility]; Protocol Last Admin: 08/14/18 11:53 Dose: 100 mls/hr Insulin Aspart (Novolog Vial Sliding Scale -) 1 vial SQ ACHS [facility]; Protocol Last Admin: 08/14/18 12:34 Dose: 8 units Insulin Detemir (Levemir Vial) 20 units SQ HS [facility] Last Admin: 08/13/18 23:01 Dose: 20 units Methylprednisolone Sodium Succinate (Solu-Medrol -) 40 mg IVPUSH Q8H-IV [facility] Last Admin: 08/14/18 11:53 Dose: 40 mg Nifedipine (Procardia Xl -) 90 mg PO DAILY [facility] Last Admin: 08/14/18 11:52 Dose: 90 mg Rosuvastatin Calcium (Crestor -) 5 mg PO HS [facility] Last Admin: 08/13/18 23:00 Dose: 5 mg Tamsulosin HCl (Flomax -) 0.4 mg PO DAILY@0830 [facility] Last Admin: 08/14/18 11:52 Dose: 0.4 mg Constitutional: Yes: NAD Eyes: Yes: Conjunctiva Clear HENT: Yes: Atraumatic Neck: Yes: Supple Cardiovascular: Yes: S1, S2 Respiratory: Yes: Diminished throughout Gastrointestinal: Yes: Soft, Abdomen, Obese Genitourinary: Yes: Ibrahim Present Musculoskeletal: Yes: WNL Edema: Yes Edema: LUE: 1+, RUE: 1+, LLE: 2+, RLE: 2+ Neurological: Yes: Oriented Psychiatric: Yes: Oriented Labs: Laboratory Results - last 24 hr 08/13/18 08/13/18 08/13/18 11:52 18:10 22:59 WBC RBC Hgb Hct MCV MCH MCHC RDW Plt Count MPV Absolute Neuts (auto) Neutrophils % Neutrophils % (Manual) Band Neutrophils % Lymphocytes % Lymphocytes % (Manual) Monocytes % Monocytes % (Manual) Eosinophils % Eosinophils % (Manual) Basophils % Basophils % (Manual) Myelocytes % (Man) Promyelocytes % (Man) Blast Cells % (Manual) Nucleated RBC % Metamyelocytes Hypochromia Platelet Estimate Platelet Comment Polychromasia Poikilocytosis Anisocytosis Microcytosis Macrocytosis Puncture Site ABG pH ABG pCO2 at Pt Temp ABG pO2 at Pt Temp ABG HCO3 ABG O2 Sat (Measured) ABG O2 Content ABG Base Excess Arsalan Test O2 Delivery Device Oxygen Flow Rate Sodium Potassium Chloride Carbon Dioxide Anion Gap BUN Creatinine Est GFR (CKD-EPI)AfAm Est GFR (CKD-EPI)NonAf POC Glucometer 275 252 328 Random Glucose Calcium Phosphorus Magnesium Total Bilirubin AST ALT Alkaline Phosphatase Creatine Kinase Creatine Kinase Index CK-MB (CK-2) Troponin I Total Protein Albumin 08/14/18 08/14/18 08/14/18 06:15 06:23 06:23 WBC 9.5 RBC 3.86 L Hgb 10.6 L Hct 34.7 L MCV 89.9 MCH 27.5 MCHC 30.6 L RDW 16.8 H Plt Count 334 MPV 8.0 Absolute Neuts (auto) 9.1 H Neutrophils % 95.4 H Neutrophils % (Manual) 94.8 H Band Neutrophils % 0.0 Lymphocytes % 2.9 L D Lymphocytes % (Manual) 2.1 L Monocytes % 1.5 L Monocytes % (Manual) 2 L Eosinophils % 0.0 D Eosinophils % (Manual) 0.0 Basophils % 0.2 Basophils % (Manual) 0.0 Myelocytes % (Man) 0 Promyelocytes % (Man) 0 Blast Cells % (Manual) 0 Nucleated RBC % 0 Metamyelocytes 0 Hypochromia 0 Platelet Estimate Normal Platelet Comment Present Polychromasia 0 Poikilocytosis 0 Anisocytosis 0 Microcytosis 0 Macrocytosis 0 Puncture Site Right radial ABG pH 7.26 L ABG pCO2 at Pt Temp 57.4 H ABG pO2 at Pt Temp 67.3 L ABG HCO3 24.6 ABG O2 Sat (Measured) 89.4 L ABG O2 Content 13.2 L ABG Base Excess -2.5 L Arsalan Test Positive O2 Delivery Device N/c Oxygen Flow Rate 5l Sodium 139 Potassium 5.8 H Chloride 108 H Carbon Dioxide 24 Anion Gap 8 BUN 46 H Creatinine 2.5 H Est GFR (CKD-EPI)AfAm 33.68 Est GFR (CKD-EPI)NonAf 29.06 POC Glucometer Random Glucose 286 H Calcium 8.6 Phosphorus 4.2 Magnesium 2.2 Total Bilirubin 0.7 AST 15 ALT 26 Alkaline Phosphatase 119 H Creatine Kinase 420 H Creatine Kinase Index 1.4 CK-MB (CK-2) 6.1 H Troponin I 0.02 Total Protein 6.8 Albumin 2.7 L 08/14/18 08/14/18 06:29 12:23 WBC RBC Hgb Hct MCV MCH MCHC RDW Plt Count MPV Absolute Neuts (auto) Neutrophils % Neutrophils % (Manual) Band Neutrophils % Lymphocytes % Lymphocytes % (Manual) Monocytes % Monocytes % (Manual) Eosinophils % Eosinophils % (Manual) Basophils % Basophils % (Manual) Myelocytes % (Man) Promyelocytes % (Man) Blast Cells % (Manual) Nucleated RBC % Metamyelocytes Hypochromia Platelet Estimate Platelet Comment Polychromasia Poikilocytosis Anisocytosis Microcytosis Macrocytosis Puncture Site ABG pH ABG pCO2 at Pt Temp ABG pO2 at Pt Temp ABG HCO3 ABG O2 Sat (Measured) ABG O2 Content ABG Base Excess Arsalan Test O2 Delivery Device Oxygen Flow Rate Sodium Potassium Chloride Carbon Dioxide Anion Gap BUN Creatinine Est GFR (CKD-EPI)AfAm Est GFR (CKD-EPI)NonAf POC Glucometer 290 319 Random Glucose Calcium Phosphorus Magnesium Total Bilirubin AST ALT Alkaline Phosphatase Creatine Kinase Creatine Kinase Index CK-MB (CK-2) Troponin I Total Protein Albumin Problem List - Problems (1) CKD (chronic kidney disease) Code(s): N18.9 - CHRONIC KIDNEY DISEASE, UNSPECIFIED (2) COPD exacerbation Code(s): J44.1 - CHRONIC OBSTRUCTIVE PULMONARY DISEASE W (ACUTE) EXACERBATION (3) Acute exacerbation of CHF (congestive heart failure) Code(s): I50.9 - HEART FAILURE, UNSPECIFIED (4) Acute on chronic respiratory failure with hypoxia and hypercapnia Code(s): J96.21 - ACUTE AND CHRONIC RESPIRATORY FAILURE WITH HYPOXIA; J96.22 - ACUTE AND CHRONIC RESPIRATORY FAILURE WITH HYPERCAPNIA (5) Acute renal failure Code(s): N17.9 - ACUTE KIDNEY FAILURE, UNSPECIFIED (6) Diabetes Code(s): E11.9 - TYPE 2 DIABETES MELLITUS WITHOUT COMPLICATIONS (7) Hypertension Code(s): I10 - ESSENTIAL (PRIMARY) HYPERTENSION Qualifiers: Hypertension type: unspecified Qualified Code(s): I10 - Essential (primary ) hypertension (8) Morbid exogenous obesity Code(s): E66.01 - MORBID (SEVERE) OBESITY DUE TO EXCESS CALORIES (9) Morbid obesity Code(s): E66.01 - MORBID (SEVERE) OBESITY DUE TO EXCESS CALORIES (10) Obesity hypoventilation syndrome Code(s): E66.2 - MORBID (SEVERE) OBESITY WITH ALVEOLAR HYPOVENTILATION (11) Pulmonary HTN Code(s): I27.2 - OTHER SECONDARY PULMONARY HYPERTENSION * DO NOT USE * (12) Respiratory distress Code(s): R06.00 - DYSPNEA, UNSPECIFIED (13) Shortness of breath Code(s): R06.02 - SHORTNESS OF BREATH (14) Sleep apnea Code(s): G47.30 - SLEEP APNEA, UNSPECIFIED (15) Acute on chronic kidney failure Code(s): N17.9 - ACUTE KIDNEY FAILURE, UNSPECIFIED; N18.9 - CHRONIC KIDNEY DISEASE, UNSPECIFIED IMP ACUTE ON CHRONIC HYPOXEMIC RESPIRATORY FAILURE CHRONIC HYPOXEMIC/HYPERCAPNEIC RESPIRATORY FAILURE COPD EXACERBATION DIASTOLIC HF CHEST PAIN PULMONARY HTN COR PULMONALE OBESITY-HYPOVENTILATION SYNDROME ACUTE ON CHRONIC KIDNEY DISEASE HTN DM TATI PLAN NIPPV SUPPORT O2 TO MAINTAIN O2 SAT 88% TO 92% MEDROL ABX INHALED BRONCHODILATORS LASIX DAILY WT DVT PROPHYLAXIS MONITOR LYTES,RENAL FUNCTION STRICT I+OS DR OLIVAS
[2018-08-14 16:28] LABS: CALCIUM 9.1 mg/dL (8.5-10.1); CREATININE 2.7 mg/dL (0.55-1.3); POTASSIUM 5.4 mmol/L (3.5-5.1)
[2018-08-14] MEDS: ALBUTEROL SO4 2.5/IPRATROPIUM 0.5 INH SOL 3 ML VIAL.NEB. NEB PRN (17:03)
[2018-08-14 18:26] LABS: EPI CELLS 1.9 /HPF (0-5/HPF); HYALINE CASTS 10 /lpf (0-8); URINE APPEARANCE CLEAR; URINE BACTERIA 2.9 /hpf (NEGATIVE); URINE BILIRUBIN NEGATIVE (NEGATIVE); URINE COLOR YELLOW; URINE GLUCOSE (UA) 2+ (NEGATIVE); URINE KETONE NEGATIVE (NEGATIVE); URINE LEUK ESTERASE NEGATIVE (NEGATIVE); URINE NITRITE NEGATIVE (NEGATIVE); URINE PROTEIN 3+ (NEGATIVE); URINE RBC 437 /hpf (0-4); URINE WBC 3 /hpf (0-5)
[2018-08-14 18:33] LABS: RATIO URIN PROTEIN/URIN CREAT 4.72 MG/DL
[2018-08-14] MEDS: ROSUVASTATIN CA 5 MG TABLET (FP) PO SCH (22:18)
[2018-08-14] MEDS: INSULIN (LEVEMIR) 100 UNITS/ML UNITS SQ SCH (22:22)
--- NOTE | 2018-08-14 23:40 | PN ---
Progress Note, Physician - Current Medication List Current Medications: Active Medications Albuterol Sulfate (Ventolin 0.083% Nebulizer Soln -) 1 amp NEB Q1H PRN PRN Reason: SHORT OF BREATH/WHEEZING Albuterol/Ipratropium (Duoneb -) 1 amp NEB Q6H PRN PRN Reason: SHORTNESS OF BREATH Last Admin: 08/14/18 17:03 Dose: 1 amp Aspirin (Asa -) 81 mg PO DAILY [facility] Last Admin: 08/14/18 11:53 Dose: 81 mg Budesonide/Formoterol Fumarate (Symbicort 160/4.5mcg -) 1 puff IH BID [facility] Last Admin: 08/14/18 22:20 Dose: 1 puff Docusate Sodium (Colace -) 100 mg PO DAILY [facility] Last Admin: 08/14/18 11:52 Dose: 100 mg Enoxaparin Sodium (Lovenox -) 80 mg SQ Q12H [facility] Last Admin: 08/13/18 03:19 Dose: 80 mg Ferrous Sulfate (Feosol -) 325 mg PO TID [facility] Last Admin: 08/14/18 22:19 Dose: 325 mg Furosemide (Lasix Injection -) 40 mg IVPUSH BID@0600,1400 [facility] Last Admin: 08/14/18 14:35 Dose: 40 mg Gabapentin (Neurontin -) 300 mg PO TID [facility] Last Admin: 08/14/18 22:19 Dose: 300 mg Hydralazine HCl (Apresoline -) 10 mg PO TID [facility] Last Admin: 08/14/18 22:19 Dose: 10 mg Azithromycin 250 mg/ Dextrose 250 mls @ 250 mls/hr IVPB DAILY [facility] Last Admin: 08/14/18 11:34 Dose: 250 mls/hr Ceftriaxone Sodium 1 gm/ (Dextrose) 50 mls @ 100 mls/hr IVPB DAILY [facility]; Protocol Last Admin: 08/14/18 11:53 Dose: 100 mls/hr Insulin Aspart (Novolog Vial Sliding Scale -) 1 vial SQ ACHS [facility]; Protocol Last Admin: 08/14/18 22:20 Dose: 10 units Insulin Detemir (Levemir Vial) 20 units SQ HS [facility] Last Admin: 08/14/18 22:22 Dose: 20 units Methylprednisolone Sodium Succinate (Solu-Medrol -) 40 mg IVPUSH Q8H-IV [facility] Last Admin: 05/25/19 17:39 Dose: 40 mg Nifedipine (Procardia Xl -) 90 mg PO DAILY [facility] Last Admin: 08/14/18 11:52 Dose: 90 mg Rosuvastatin Calcium (Crestor -) 5 mg PO HS [facility] Last Admin: 08/14/18 22:18 Dose: 5 mg Tamsulosin HCl (Flomax -) 0.4 mg PO DAILY@0830 [facility] Last Admin: 08/14/18 11:52 Dose: 0.4 mg - Objective Vital Signs: Vital Signs Temperature 98.4 F 08/14/18 18:00 Pulse Rate 106 H 08/14/18 18:00 Respiratory Rate 22 H 08/14/18 18:00 Blood Pressure 121/58 L 08/14/18 18:00 O2 Sat by Pulse Oximetry (%) 94 L 08/14/18 21:00 Labs: CBC, BMP 08/14/18 06:23 08/14/18 15:40 INR, PTT INR 1.10 (0.83-1.09) H 08/12/18 21:00
[2018-08-15] MEDS: methylPREDNISolone NA SUCC 40 MG/1 ML VIAL IVPUSH SCH ×3 (01:57→17:19)
[2018-08-15] MEDS: ALBUTEROL SO4 2.5/IPRATROPIUM 0.5 INH SOL 3 ML VIAL.NEB. NEB PRN ×2 (05:30→09:12)
[2018-08-15] MEDS: FUROSEMIDE 40 MG/4 ML INJECTABLE VIAL IVPUSH SCH ×2 (05:51→13:25)
[2018-08-15] MEDS: hydrALAZINE HCL 10 MG TABLET PO SCH (05:52)
[2018-08-15] MEDS: FERROUS SO4 325 MG TABLET (FP) PO SCH ×3 (05:52→22:11)
[2018-08-15] MEDS: GABAPENTIN 300 MG CAPSULE (FP) PO SCH ×3 (05:52→22:12)
[2018-08-15] MEDS: INSULIN SLIDING SCALE (NOVOLOG) 1 VIAL SQ SCH ×5 (06:49→22:54)
--- NOTE | 2018-08-15 07:31 | PN ---
Progress Note, Physician Chief Complaint: Events noted Coverage for Dr. Jain and Gaurang Not in distress History of Present Illness: Patient was seen and examined. Awake and alert. Chart was reviewed Morbid obesity and on O2 NC - Current Medication List Current Medications: Active Medications Albuterol Sulfate (Ventolin 0.083% Nebulizer Soln -) 1 amp NEB Q1H PRN PRN Reason: SHORT OF BREATH/WHEEZING Albuterol/Ipratropium (Duoneb -) 1 amp NEB Q6H PRN PRN Reason: SHORTNESS OF BREATH Last Admin: 08/15/18 05:30 Dose: 1 amp Aspirin (Asa -) 81 mg PO DAILY [facility] Last Admin: 08/14/18 11:53 Dose: 81 mg Budesonide/Formoterol Fumarate (Symbicort 160/4.5mcg -) 1 puff IH BID [facility] Last Admin: 08/14/18 22:20 Dose: 1 puff Docusate Sodium (Colace -) 100 mg PO DAILY [facility] Last Admin: 08/14/18 11:52 Dose: 100 mg Enoxaparin Sodium (Lovenox -) 80 mg SQ Q12H [facility] Last Admin: 08/13/18 03:19 Dose: 80 mg Ferrous Sulfate (Feosol -) 325 mg PO TID [facility] Last Admin: 08/15/18 05:52 Dose: 325 mg Furosemide (Lasix Injection -) 40 mg IVPUSH BID@0600,1400 [facility] Last Admin: 08/15/18 05:51 Dose: 40 mg Gabapentin (Neurontin -) 300 mg PO TID [facility] Last Admin: 08/15/18 05:52 Dose: 300 mg Hydralazine HCl (Apresoline -) 10 mg PO TID [facility] Last Admin: 08/15/18 05:52 Dose: 10 mg Azithromycin 250 mg/ Dextrose 250 mls @ 250 mls/hr IVPB DAILY [facility] Last Admin: 08/14/18 11:34 Dose: 250 mls/hr Ceftriaxone Sodium 1 gm/ (Dextrose) 50 mls @ 100 mls/hr IVPB DAILY [facility]; Protocol Last Admin: 08/14/18 11:53 Dose: 100 mls/hr Insulin Aspart (Novolog Vial Sliding Scale -) 1 vial SQ ACHS [facility]; Protocol Last Admin: 08/15/18 06:49 Dose: 10 units Insulin Detemir (Levemir Vial) 20 units SQ [facility] Last Admin: 08/14/18 22:22 Dose: 20 units Methylprednisolone Sodium Succinate (Solu-Medrol -) 40 mg IVPUSH Q8H-IV [facility] Last Admin: 08/15/18 01:57 Dose: 40 mg Nifedipine (Procardia Xl -) 90 mg PO DAILY [facility] Last Admin: 08/14/18 11:52 Dose: 90 mg Rosuvastatin Calcium (Crestor -) 5 mg PO [facility] Last Admin: 08/14/18 22:18 Dose: 5 mg Tamsulosin HCl (Flomax -) 0.4 mg PO DAILY@0830 [facility] Last Admin: 08/14/18 11:52 Dose: 0.4 mg - Objective Vital Signs: Vital Signs Temperature 97.8 F 08/15/18 02:16 Pulse Rate 86 08/15/18 02:16 Respiratory Rate 20 08/15/18 02:16 Blood Pressure 163/97 08/15/18 02:16 O2 Sat by Pulse Oximetry (%) 94 L 08/14/18 21:00 Eyes: Yes: PERRL HENT: Yes: Atraumatic Neck: Yes: Supple Cardiovascular: Yes: Regular Rate and Rhythm, S1, S2 Respiratory: Yes: Diminished Gastrointestinal: Yes: Normal Bowel Sounds, Soft, Abdomen, Obese. No: Tenderness Edema: Yes Additional Findings/Remarks: - Review of Systems Constitutional: denies: Chills, Fever Cardiovascular: reports: Shortness of Breath. denies: Chest Pain, Palpitations Respiratory: reports: Cough, SOB, SOB on Exertion. denies: Hemoptysis, Orthopnea, Wheezing Gastrointestinal: denies: Abdominal Pain, Constipation, Diarrhea, Melena, Nausea , Rectal Bleeding, Vomiting Genitourinary: denies: Dysuria, Hematuria Musculoskeletal: denies: Back Pain, Joint Pain Neurological: denies: Dizziness, Headache, Seizure, Syncope Labs: CBC, BMP 08/14/18 06:23 08/14/18 15:40 Problem List - Problems (1) CKD (chronic kidney disease) Code(s): N18.9 - CHRONIC KIDNEY DISEASE, UNSPECIFIED (2) COPD exacerbation Code(s): J44.1 - CHRONIC OBSTRUCTIVE PULMONARY DISEASE W (ACUTE) EXACERBATION (3) Acute exacerbation of CHF (congestive heart failure) Code(s): I50.9 - HEART FAILURE, UNSPECIFIED (4) Diabetes Code(s): E11.9 - TYPE 2 DIABETES MELLITUS WITHOUT COMPLICATIONS (5) Hyperlipidemia Code(s): E78.5 - HYPERLIPIDEMIA, UNSPECIFIED (6) Hypertension Code(s): I10 - ESSENTIAL (PRIMARY) HYPERTENSION Qualifiers: Hypertension type: unspecified Qualified Code(s): I10 - Essential (primary ) hypertension (7) Morbid obesity Code(s): E66.01 - MORBID (SEVERE) OBESITY DUE TO EXCESS CALORIES (8) Pulmonary HTN Code(s): I27.2 - OTHER SECONDARY PULMONARY HYPERTENSION * DO NOT USE * (9) Sleep apnea Code(s): G47.30 - SLEEP APNEA, UNSPECIFIED Assessment/Plan 1. COPD exacerbation dependent on home O2 2. Morbid obesity 3. HTN 4. Hypercholesterolemia 5. CKD 6. 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 Hyperglycemia/DM PLAN: 1. Continue Nifedipine ER and Hydralazine and uptitrate for labile HTN 2. Continue Diuretics including IV Furosemide and Metolazone 3. ASA 4. Statin (Rosuvastatin) 5. DVT prophylaxis 6. Steroid taper, bronchodilator, O2 and BIPAP as tolerated 7. Empiric antibiotics 8. Monitor renal function and electrolytes Further plans are to follow Neno Bullard MD
[2018-08-15] MEDS ORDERED: DEXTROSE 5%-WATER - 50 ML IVPB ONE (08:09)
[2018-08-15] MEDS ORDERED: cefTRIAXone SODIUM 1 GM VIAL ONE (08:09)
[2018-08-15 08:15] LABS: BASO % 0.1 % (0-2.0); HEMATOCRIT 37.4 % (35.4-49); HEMOGLOBIN 11.2 GM/dL (11.7-16.9); LYMPH % 2.4 % (8-40); MCH 27.4 pg (25.7-33.7); MCHC 29.9 g/dl (32.0-35.9); MEAN CELL VOLUME 91.4 fl (80-96); MEAN PLT VOLUME 8.1 fl (7.5-11.1); MONO % 2.3 % (3.8-10.2); NEUT % 95.2 % (42.8-82.8); PLATELET COUNT 289 K/MM3 (134-434); RBC 4.09 M/mm3 (4.00-5.60); RDW 16.6 % (11.9-15.9); WHITE BLOOD COUNT 10.6 K/mm3 (4.0-10.0)
[2018-08-15 08:48] LABS: ALBUMIN 2.9 g/dl (3.4-5.0); BILIRUBIN,TOTAL 0.6 mg/dL (0.2-1); CALCIUM 8.9 mg/dL (8.5-10.1); CREATININE 2.8 mg/dL (0.55-1.3)
[2018-08-15] MEDS ORDERED: PT OWN MED DRAWER 7, Y5N ONE ×3 (08:58→17:18)
[2018-08-15] MEDS: NIFEdipine E.R. 90 MG TABLET (FP) PO SCH (09:00)
[2018-08-15] MEDS: DOCUSATE SODIUM 100 MG CAPSULE (FP) PO SCH (09:00)
[2018-08-15] MEDS: ASPIRIN 81 MG CHEWABLE TABLETS PO SCH (09:00)
[2018-08-15] MEDS: TAMSULOSIN HCL 0.4 MG CAP PO SCH (09:00)
[2018-08-15] MEDS: CEFTRIAXONE 1 GM in DEXTROSE 5%-WATER - 50 ML IVPB SCH (09:01)
[2018-08-15] MEDS: AZITHROMYCIN IVPB 250 MG in DEXTROSE 5%-WATER - 250 ML IVPB SCH (09:05)
[2018-08-15] MEDS: BUDESONIDE/FORMETEROL FUMARATE 160/4.5 mcg INHALER IH SCH ×2 (09:05→09:45)
--- NOTE | 2018-08-15 10:03 | PN ---
Progress Note, Physician History of Present Illness: Pt seen and examined at bedside. He complains of edema. He feels that his breathing is improving but still has shortness of breath with minimal activity. - Current Medication List Current Medications: Active Medications Albuterol Sulfate (Ventolin 0.083% Nebulizer Soln -) 1 amp NEB Q1H PRN PRN Reason: SHORT OF BREATH/WHEEZING Albuterol/Ipratropium (Duoneb -) 1 amp NEB Q6H PRN PRN Reason: SHORTNESS OF BREATH Last Admin: 08/15/18 09:12 Dose: 1 amp Aspirin (Asa -) 81 mg PO DAILY [facility] Last Admin: 08/15/18 09:00 Dose: 81 mg Budesonide/Formoterol Fumarate (Symbicort 160/4.5mcg -) 1 puff IH BID [facility] Last Admin: 08/15/18 09:05 Dose: 1 puff Docusate Sodium (Colace -) 100 mg PO DAILY [facility] Last Admin: 08/15/18 09:00 Dose: 100 mg Enoxaparin Sodium (Lovenox -) 80 mg SQ Q12H [facility] Last Admin: 08/13/18 03:19 Dose: 80 mg Ferrous Sulfate (Feosol -) 325 mg PO TID [facility] Last Admin: 08/15/18 05:52 Dose: 325 mg Furosemide (Lasix Injection -) 40 mg IVPUSH BID@0600,1400 [facility] Last Admin: 08/15/18 05:51 Dose: 40 mg Gabapentin (Neurontin -) 300 mg PO TID [facility] Last Admin: 08/15/18 05:52 Dose: 300 mg Hydralazine HCl (Apresoline -) 25 mg PO TID [facility] Azithromycin 250 mg/ Dextrose 250 mls @ 250 mls/hr IVPB DAILY [facility] Last Admin: 08/15/18 09:05 Dose: 250 mls/hr Ceftriaxone Sodium 1 gm/ (Dextrose) 50 mls @ 100 mls/hr IVPB DAILY [facility]; Protocol Last Admin: 08/15/18 09:01 Dose: 100 mls/hr Insulin Aspart (Novolog Vial Sliding Scale -) 1 vial SQ ACHS [facility]; Protocol Last Admin: 08/15/18 09:50 Dose: 10 units Insulin Detemir (Levemir Vial) 20 units SQ HS [facility] Last Admin: 08/14/18 22:22 Dose: 20 units Methylprednisolone Sodium Succinate (Solu-Medrol -) 40 mg IVPUSH Q8H-IV [facility] Last Admin: 08/15/18 09:00 Dose: 40 mg Nifedipine (Procardia Xl -) 90 mg PO DAILY [facility] Last Admin: 08/15/18 09:00 Dose: 90 mg Rosuvastatin Calcium (Crestor -) 5 mg PO HS [facility] Last Admin: 08/14/18 22:18 Dose: 5 mg Sodium Zirconium Cyclosilicate (Lokelma) 10 gm PO DAILY [facility] Tamsulosin HCl (Flomax -) 0.4 mg PO DAILY@0830 [facility] Last Admin: 08/15/18 09:00 Dose: 0.4 mg - Objective Vital Signs: Vital Signs Temperature 97.8 F 08/15/18 08:58 Pulse Rate 94 H 08/15/18 08:58 Respiratory Rate 20 08/15/18 08:58 Blood Pressure 152/69 08/15/18 08:58 O2 Sat by Pulse Oximetry (%) 91 L 08/15/18 08:58 Constitutional: Yes: Calm Eyes: Yes: Conjunctiva Clear HENT: Yes: Atraumatic Neck: Yes: Supple Cardiovascular: Yes: S1, S2 Respiratory: Yes: On Nasal O2 Gastrointestinal: Yes: Soft, Abdomen, Obese Genitourinary: Yes: WNL Edema: Yes Edema: LUE: 1+, RUE: 1+, LLE: 2+, RLE: 2+ Neurological: Yes: Oriented Psychiatric: Yes: Oriented Labs: CBC, BMP 08/15/18 07:25 08/15/18 07:25 INR, PTT INR 1.10 (0.83-1.09) H 08/12/18 21:00 Problem List - Problems (1) CKD (chronic kidney disease) Code(s): N18.9 - CHRONIC KIDNEY DISEASE, UNSPECIFIED (2) COPD exacerbation Code(s): J44.1 - CHRONIC OBSTRUCTIVE PULMONARY DISEASE W (ACUTE) EXACERBATION (3) Acute exacerbation of CHF (congestive heart failure) Code(s): I50.9 - HEART FAILURE, UNSPECIFIED Assessment/Plan Current Medications Generic Name Dose Route Start Last Admin Trade Name Freq PRN Reason Stop Dose Admin Albuterol Sulfate 1 amp 08/14/18 11:02 Ventolin 0.083% Nebulizer Soln - NEB Q1H PRN SHORT OF BREATH/WHEEZING Albuterol/Ipratropium 1 amp 08/13/18 02:56 08/15/18 09:12 Duoneb - NEB 1 amp Q6H PRN Administration SHORTNESS OF BREATH Aspirin 81 mg 08/13/18 10:00 08/15/18 09:00 Asa - PO 81 mg DAILY [facility] Administration Budesonide/Formoterol Fumarate 1 puff 08/13/18 10:00 08/15/18 09:05 Symbicort 160/4.5mcg - IH 1 puff BID [facility] Administration Docusate Sodium 100 mg 08/13/18 10:00 08/15/18 09:00 Colace - PO 100 mg DAILY [facility] Administration Enoxaparin Sodium 80 mg 08/13/18 03:15 08/13/18 03:19 Lovenox - SQ 80 mg Q12H [facility] Administration Ferrous Sulfate 325 mg 08/13/18 06:00 08/15/18 05:52 Feosol - PO 325 mg TID [facility] Administration Furosemide 40 mg 08/14/18 14:00 08/15/18 05:51 Lasix Injection - IVPUSH 40 mg BID@0600,1400 [facility] Administration Gabapentin 300 mg 08/13/18 06:00 08/15/18 05:52 Neurontin - PO 300 mg TID [facility] Administration Hydralazine HCl 25 mg 08/15/18 14:00 Apresoline - PO TID [facility] Azithromycin 250 mg/ Dextrose 250 mls @ 250 mls/hr 08/13/18 10:00 08/15/18 09 :05 IVPB 250 mls/hr DAILY [facility] Administration Ceftriaxone Sodium 1 gm/ 50 mls @ 100 mls/hr 08/13/18 10:00 08/15/18 09:01 Dextrose IVPB 100 mls/hr DAILY [facility] Administration Protocol Insulin Aspart 1 vial 08/13/18 07:00 08/15/18 09:50 Novolog Vial Sliding Scale - SQ 10 units ACHS [facility] Administration Protocol Insulin Detemir 20 units 08/13/18 22:00 08/14/18 22:22 Levemir Vial SQ 20 units HS [facility] Administration Methylprednisolone Sodium Succinate 40 mg 08/13/18 10:00 08/15/18 09:00 Solu-Medrol - IVPUSH 40 mg Q8H-IV [facility] Administration Nifedipine 90 mg 08/13/18 10:00 08/15/18 09:00 Procardia Xl - PO 90 mg DAILY [facility] Administration Rosuvastatin Calcium 5 mg 08/13/18 22:00 08/14/18 22:18 Crestor - PO 5 mg HS [facility] Administration Sodium Zirconium Cyclosilicate 10 gm 08/15/18 10:00 Lokelma PO DAILY [facility] Tamsulosin HCl 0.4 mg 08/13/18 08:30 08/15/18 09:00 Flomax - PO 0.4 mg DAILY@0830 [facility] Administration Laboratory Tests 08/14/18 16:50 Protein/Creatinin Ratio 4.720 Impression 1. CKD 2. dyspnea 3. morbid obesity 4. DM 5. HTN 6. likely sleep apnea 7. chest pain 8. hyperkalemia Plan - potassium improved yesterday but is elevated today - will need better glucose control - will treat potassium medically - may need to give kayexylate if repeat potassium is elevated - will give calcium and bicarb - he was just given insulin for hyperglycemia - cardio input appreciated - monitor urine output - recommend weight loss - check echo - pt with nephrotic range proteinura
[2018-08-15] MEDS ORDERED: INSULIN (LEVEMIR) 100 UNITS/ML UNITS SQ ONE (10:05)
[2018-08-15] MEDS ORDERED: SODIUM BICARBONATE 8.4% 50 MEQ/50 ML VIAL IVPUSH ONE ×2 (10:15→12:30)
[2018-08-15] MEDS ORDERED: ALBUTEROL SO4 0.083% IH SOL 2.5 MG/3 ML VIAL.NEB. NEB PRN (10:15)
[2018-08-15] MEDS ORDERED: CALCIUM GLUCONATE 10% - 1,000 MG/10 ML VIAL IVPB ONE (10:30)
[2018-08-15] MEDS: SODIUM ZIRCONIUM CYCLOSILICATE (LOKELMA) 5 GM PACKET PO SCH (12:00)
--- NOTE | 2018-08-15 12:16 | PN ---
Progress Note (short form) - Note Progress Note: NAD on 5 L NC O2. Breathing feels a little better but still with Dyspnea on minimal exertion. NIPPV support overnight. Intake & Output 08/12/18 08/13/18 08/14/18 08/15/18 23:59 23:59 23:59 23:59 Intake Total 250 510 20 Output Total 300 1500 600 Balance -50 -990 -580 Weight 440 lb 440 lb 439 lb 6.4 oz Last Vital Signs Temp Pulse Resp BP Pulse Ox 97.8 F 94 H 20 152/69 91 L 08/15/18 08:58 08/15/18 08:58 08/15/18 08:58 08/15/18 08:58 08/15/18 08:58 Active Medications Albuterol Sulfate (Ventolin 0.083% Nebulizer Soln -) 1 amp NEB Q1H PRN PRN Reason: SHORT OF BREATH/WHEEZING Albuterol Sulfate (Ventolin 0.083% Nebulizer Soln -) 1 amp NEB Q1H PRN PRN Reason: SHORT OF BREATH/WHEEZING Albuterol/Ipratropium (Duoneb -) 1 amp NEB Q6H PRN PRN Reason: SHORTNESS OF BREATH Last Admin: 08/15/18 09:12 Dose: 1 amp Aspirin (Asa -) 81 mg PO DAILY [facility] Last Admin: 08/15/18 09:00 Dose: 81 mg Budesonide/Formoterol Fumarate (Symbicort 160/4.5mcg -) 1 puff IH BID [facility] Last Admin: 08/15/18 09:05 Dose: 1 puff Docusate Sodium (Colace -) 100 mg PO DAILY [facility] Last Admin: 08/15/18 09:00 Dose: 100 mg Enoxaparin Sodium (Lovenox -) 80 mg SQ Q12H [facility] Last Admin: 08/13/18 03:19 Dose: 80 mg Ferrous Sulfate (Feosol -) 325 mg PO TID [facility] Last Admin: 08/15/18 05:52 Dose: 325 mg Furosemide (Lasix Injection -) 40 mg IVPUSH BID@0600,1400 [facility] Last Admin: 08/15/18 05:51 Dose: 40 mg Gabapentin (Neurontin -) 300 mg PO TID [facility] Last Admin: 08/15/18 05:52 Dose: 300 mg Hydralazine HCl (Apresoline -) 25 mg PO TID [facility] Azithromycin 250 mg/ Dextrose 250 mls @ 250 mls/hr IVPB DAILY [facility] Last Admin: 08/15/18 09:05 Dose: 250 mls/hr Ceftriaxone Sodium 1 gm/ (Dextrose) 50 mls @ 100 mls/hr IVPB DAILY [facility]; Protocol Last Admin: 08/15/18 09:01 Dose: 100 mls/hr Insulin Aspart (Novolog Vial Sliding Scale -) 1 vial SQ [facility]; Protocol Last Admin: 08/15/18 11:41 Dose: 12 units Insulin Detemir (Levemir Vial) 20 units SQ [facility] Last Admin: 08/14/18 22:22 Dose: 20 units Methylprednisolone Sodium Succinate (Solu-Medrol -) 40 mg IVPUSH Q8H-IV [facility] Last Admin: 08/15/18 09:00 Dose: 40 mg Nifedipine (Procardia Xl -) 90 mg PO DAILY [facility] Last Admin: 08/15/18 09:00 Dose: 90 mg Rosuvastatin Calcium (Crestor -) 5 mg PO [facility] Last Admin: 08/14/18 22:18 Dose: 5 mg Sodium Bicarbonate (Sodium Bicarbonate 8.4% -) 50 meq IVPUSH ONCE ONE Stop: 08/15/18 12:31 Sodium Zirconium Cyclosilicate (Lokelma) 10 gm PO DAILY [facility] Last Admin: 08/15/18 12:00 Dose: 10 gm Tamsulosin HCl (Flomax -) 0.4 mg PO DAILY@0830 [facility] Last Admin: 08/15/18 09:00 Dose: 0.4 mg Constitutional: Yes: NAD Eyes: Yes: Conjunctiva Clear HENT: Yes: Atraumatic Neck: Yes: Supple Cardiovascular: Yes: S1, S2 Respiratory: Yes: Diminished throughout Gastrointestinal: Yes: Soft, Abdomen, Obese Genitourinary: Yes: Ibrahim Present Musculoskeletal: Yes: WNL Edema: Yes Edema: LUE: 1+, RUE: 1+, LLE: 2+, RLE: 2+ Neurological: Yes: Oriented Psychiatric: Yes: Oriented Labs: Laboratory Results - last 24 hr 08/14/18 08/14/18 08/14/18 06:23 12:23 15:40 WBC RBC Hgb Hct MCV MCH MCHC RDW Plt Count MPV Absolute Neuts (auto) Neutrophils % Neutrophils % (Manual) 94.8 H Band Neutrophils % 0.0 Lymphocytes % Lymphocytes % (Manual) 2.1 L Monocytes % Monocytes % (Manual) 2 L Eosinophils % Eosinophils % (Manual) 0.0 Basophils % Basophils % (Manual) 0.0 Myelocytes % (Man) 0 Promyelocytes % (Man) 0 Blast Cells % (Manual) 0 Nucleated RBC % Metamyelocytes 0 Hypochromia 0 Platelet Estimate Normal Platelet Comment Present Polychromasia 0 Poikilocytosis 0 Anisocytosis 0 Microcytosis 0 Macrocytosis 0 Sodium 139 Potassium 5.4 H Chloride 108 H Carbon Dioxide 24 Anion Gap 7 L BUN 50 H Creatinine 2.7 H Est GFR (CKD-EPI)AfAm 30.69 Est GFR (CKD-EPI)NonAf 26.48 POC Glucometer 319 Random Glucose 244 H Calcium 9.1 Total Bilirubin AST ALT Alkaline Phosphatase Creatine Kinase Creatine Kinase Index CK-MB (CK-2) Troponin I Total Protein Albumin Urine Color Urine Appearance Urine pH Ur Specific [place] Urine Protein Urine Glucose (UA) Urine Ketones Urine Blood Urine Nitrite Urine Bilirubin Urine Urobilinogen Ur Leukocyte Esterase Urine WBC (Auto) Urine RBC (Auto) Urine Casts (Auto) U Epithel Cells (Auto) Urine Bacteria (Auto) Ur Random Creatinine U Random Total Protein Ur Random Sodium Ur Random Potassium Ur Random Chloride Urine Creatinine Protein/Creatinin Ratio 08/14/18 08/14/18 08/14/18 16:50 16:50 16:50 WBC RBC Hgb Hct MCV MCH MCHC RDW Plt Count MPV Absolute Neuts (auto) Neutrophils % Neutrophils % (Manual) Band Neutrophils % Lymphocytes % Lymphocytes % (Manual) Monocytes % Monocytes % (Manual) Eosinophils % Eosinophils % (Manual) Basophils % Basophils % (Manual) Myelocytes % (Man) Promyelocytes % (Man) Blast Cells % (Manual) Nucleated RBC % Metamyelocytes Hypochromia Platelet Estimate Platelet Comment Polychromasia Poikilocytosis Anisocytosis Microcytosis Macrocytosis Sodium Potassium Chloride Carbon Dioxide Anion Gap BUN Creatinine Est GFR (CKD-EPI)AfAm Est GFR (CKD-EPI)NonAf POC Glucometer Random Glucose Calcium Total Bilirubin AST ALT Alkaline Phosphatase Creatine Kinase Creatine Kinase Index CK-MB (CK-2) Troponin I Total Protein Albumin Urine Color Urine Appearance Urine pH Ur Specific [place] Urine Protein Urine Glucose (UA) Urine Ketones Urine Blood Urine Nitrite Urine Bilirubin Urine Urobilinogen Ur Leukocyte Esterase Urine WBC (Auto) Urine RBC (Auto) Urine Casts (Auto) U Epithel Cells (Auto) Urine Bacteria (Auto) Ur Random Creatinine 100.0 U Random Total Protein 454.0 H Ur Random Sodium 69 Ur Random Potassium 24.1 L Ur Random Chloride 86 L Urine Creatinine 96.0 Protein/Creatinin Ratio 4.720 08/14/18 08/14/18 08/14/18 16:50 17:28 22:14 WBC RBC Hgb Hct MCV MCH MCHC RDW Plt Count MPV Absolute Neuts (auto) Neutrophils % Neutrophils % (Manual) Band Neutrophils % Lymphocytes % Lymphocytes % (Manual) Monocytes % Monocytes % (Manual) Eosinophils % Eosinophils % (Manual) Basophils % Basophils % (Manual) Myelocytes % (Man) Promyelocytes % (Man) Blast Cells % (Manual) Nucleated RBC % Metamyelocytes Hypochromia Platelet Estimate Platelet Comment Polychromasia Poikilocytosis Anisocytosis Microcytosis Macrocytosis Sodium Potassium Chloride Carbon Dioxide Anion Gap BUN Creatinine Est GFR (CKD-EPI)AfAm Est GFR (CKD-EPI)NonAf POC Glucometer 288 370 Random Glucose Calcium Total Bilirubin AST ALT Alkaline Phosphatase Creatine Kinase Creatine Kinase Index CK-MB (CK-2) Troponin I Total Protein Albumin Urine Color Yellow Urine Appearance Clear Urine pH 5.0 Ur Specific [place] 1.016 Urine Protein 3+ H Urine Glucose (UA) 2+ H Urine Ketones Negative Urine Blood 3+ H Urine Nitrite Negative Urine Bilirubin Negative Urine Urobilinogen 1.0 Ur Leukocyte Esterase Negative Urine WBC (Auto) 3 Urine RBC (Auto) 437 Urine Casts (Auto) 10 U Epithel Cells (Auto) 1.9 Urine Bacteria (Auto) 2.9 Ur Random Creatinine U Random Total Protein Ur Random Sodium Ur Random Potassium Ur Random Chloride Urine Creatinine Protein/Creatinin Ratio 08/15/18 08/15/18 08/15/18 06:15 07:25 07:25 WBC RBC Hgb Hct MCV MCH MCHC RDW Plt Count MPV Absolute Neuts (auto) Neutrophils % Neutrophils % (Manual) Band Neutrophils % Lymphocytes % Lymphocytes % (Manual) Monocytes % Monocytes % (Manual) Eosinophils % Eosinophils % (Manual) Basophils % Basophils % (Manual) Myelocytes % (Man) Promyelocytes % (Man) Blast Cells % (Manual) Nucleated RBC % Metamyelocytes Hypochromia Platelet Estimate Platelet Comment Polychromasia Poikilocytosis Anisocytosis Microcytosis Macrocytosis Sodium 138 Potassium 6.0 H Chloride 104 Carbon Dioxide 27 Anion Gap 7 L BUN 59 H Creatinine 2.8 H Est GFR (CKD-EPI)AfAm 29.37 Est GFR (CKD-EPI)NonAf 25.34 POC Glucometer 377 Random Glucose 396 H* Calcium 8.9 Total Bilirubin 0.6 AST 9 L ALT 26 Alkaline Phosphatase 114 Creatine Kinase 323 H Creatine Kinase Index 1.8 CK-MB (CK-2) 6.0 H Troponin I 0.02 Total Protein 7.0 Albumin 2.9 L Urine Color Urine Appearance Urine pH Ur Specific [place] Urine Protein Urine Glucose (UA) Urine Ketones Urine Blood Urine Nitrite Urine Bilirubin Urine Urobilinogen Ur Leukocyte Esterase Urine WBC (Auto) Urine RBC (Auto) Urine Casts (Auto) U Epithel Cells (Auto) Urine Bacteria (Auto) Ur Random Creatinine U Random Total Protein Ur Random Sodium Ur Random Potassium Ur Random Chloride Urine Creatinine Protein/Creatinin Ratio 08/15/18 08/15/18 08/15/18 07:25 09:45 11:34 WBC 10.6 H RBC 4.09 Hgb 11.2 L Hct 37.4 MCV 91.4 MCH 27.4 MCHC 29.9 L RDW 16.6 H Plt Count 289 MPV 8.1 Absolute Neuts (auto) 10.1 H Neutrophils % 95.2 H Neutrophils % (Manual) Band Neutrophils % Lymphocytes % 2.4 L Lymphocytes % (Manual) Monocytes % 2.3 L Monocytes % (Manual) Eosinophils % 0.0 Eosinophils % (Manual) Basophils % 0.1 Basophils % (Manual) Myelocytes % (Man) Promyelocytes % (Man) Blast Cells % (Manual) Nucleated RBC % 0 Metamyelocytes Hypochromia Platelet Estimate Platelet Comment Polychromasia Poikilocytosis Anisocytosis Microcytosis Macrocytosis Sodium Potassium Chloride Carbon Dioxide Anion Gap BUN Creatinine Est GFR (CKD-EPI)AfAm Est GFR (CKD-EPI)NonAf POC Glucometer 341 397 Random Glucose Calcium Total Bilirubin AST ALT Alkaline Phosphatase Creatine Kinase Creatine Kinase Index CK-MB (CK-2) Troponin I Total Protein Albumin Urine Color Urine Appearance Urine pH Ur Specific [place] Urine Protein Urine Glucose (UA) Urine Ketones Urine Blood Urine Nitrite Urine Bilirubin Urine Urobilinogen Ur Leukocyte Esterase Urine WBC (Auto) Urine RBC (Auto) Urine Casts (Auto) U Epithel Cells (Auto) Urine Bacteria (Auto) Ur Random Creatinine U Random Total Protein Ur Random Sodium Ur Random Potassium Ur Random Chloride Urine Creatinine Protein/Creatinin Ratio 08/15/18 11:37 WBC RBC Hgb Hct MCV MCH MCHC RDW Plt Count MPV Absolute Neuts (auto) Neutrophils % Neutrophils % (Manual) Band Neutrophils % Lymphocytes % Lymphocytes % (Manual) Monocytes % Monocytes % (Manual) Eosinophils % Eosinophils % (Manual) Basophils % Basophils % (Manual) Myelocytes % (Man) Promyelocytes % (Man) Blast Cells % (Manual) Nucleated RBC % Metamyelocytes Hypochromia Platelet Estimate Platelet Comment Polychromasia Poikilocytosis Anisocytosis Microcytosis Macrocytosis Sodium Potassium Chloride Carbon Dioxide Anion Gap BUN Creatinine Est GFR (CKD-EPI)AfAm Est GFR (CKD-EPI)NonAf POC Glucometer 432 Random Glucose Calcium Total Bilirubin AST ALT Alkaline Phosphatase Creatine Kinase Creatine Kinase Index CK-MB (CK-2) Troponin I Total Protein Albumin Urine Color Urine Appearance Urine pH Ur Specific [place] Urine Protein Urine Glucose (UA) Urine Ketones Urine Blood Urine Nitrite Urine Bilirubin Urine Urobilinogen Ur Leukocyte Esterase Urine WBC (Auto) Urine RBC (Auto) Urine Casts (Auto) U Epithel Cells (Auto) Urine Bacteria (Auto) Ur Random Creatinine U Random Total Protein Ur Random Sodium Ur Random Potassium Ur Random Chloride Urine Creatinine Protein/Creatinin Ratio Problem List - Problems (1) CKD (chronic kidney disease) Code(s): N18.9 - CHRONIC KIDNEY DISEASE, UNSPECIFIED (2) COPD exacerbation Code(s): J44.1 - CHRONIC OBSTRUCTIVE PULMONARY DISEASE W (ACUTE) EXACERBATION (3) Acute exacerbation of CHF (congestive heart failure) Code(s): I50.9 - HEART FAILURE, UNSPECIFIED (4) Acute on chronic respiratory failure with hypoxia and hypercapnia Code(s): J96.21 - ACUTE AND CHRONIC RESPIRATORY FAILURE WITH HYPOXIA; J96.22 - ACUTE AND CHRONIC RESPIRATORY FAILURE WITH HYPERCAPNIA (5) Acute renal failure Code(s): N17.9 - ACUTE KIDNEY FAILURE, UNSPECIFIED (6) Diabetes Code(s): E11.9 - TYPE 2 DIABETES MELLITUS WITHOUT COMPLICATIONS (7) Hypertension Code(s): I10 - ESSENTIAL (PRIMARY) HYPERTENSION Qualifiers: Hypertension type: unspecified Qualified Code(s): I10 - Essential (primary ) hypertension (8) Morbid exogenous obesity Code(s): E66.01 - MORBID (SEVERE) OBESITY DUE TO EXCESS CALORIES (9) Morbid obesity Code(s): E66.01 - MORBID (SEVERE) OBESITY DUE TO EXCESS CALORIES (10) Obesity hypoventilation syndrome Code(s): E66.2 - MORBID (SEVERE) OBESITY WITH ALVEOLAR HYPOVENTILATION (11) Pulmonary HTN Code(s): I27.2 - OTHER SECONDARY PULMONARY HYPERTENSION * DO NOT USE * (12) Respiratory distress Code(s): R06.00 - DYSPNEA, UNSPECIFIED (13) Shortness of breath Code(s): R06.02 - SHORTNESS OF BREATH (14) Sleep apnea Code(s): G47.30 - SLEEP APNEA, UNSPECIFIED (15) Acute on chronic kidney failure Code(s): N17.9 - ACUTE KIDNEY FAILURE, UNSPECIFIED; N18.9 - CHRONIC KIDNEY DISEASE, UNSPECIFIED IMP ACUTE ON CHRONIC HYPOXEMIC RESPIRATORY FAILURE CHRONIC HYPOXEMIC/HYPERCAPNEIC RESPIRATORY FAILURE COPD EXACERBATION DIASTOLIC HF CHEST PAIN PULMONARY HTN COR PULMONALE OBESITY-HYPOVENTILATION SYNDROME ACUTE ON CHRONIC KIDNEY DISEASE HTN DM TATI PLAN NIPPV SUPPORT O2 TO MAINTAIN O2 SAT 88% TO 92% MEDROL ABX INHALED BRONCHODILATORS LASIX DAILY WT DVT PROPHYLAXIS MONITOR LYTES,RENAL FUNCTION STRICT I+OS DR OLIVAS
[2018-08-15] MEDS: hydrALAZINE HCL 25 MG TABLET (FP) PO SCH ×2 (13:25→22:12)
[2018-08-15 13:33] LABS: ANISOCYTOSIS 1+; MACROCYTOSIS 0; PLATELET ESTIMATE NORMAL
[2018-08-15 14:05] LABS: CALCIUM 8.6 mg/dL (8.5-10.1); CREATININE 2.9 mg/dL (0.55-1.3); POTASSIUM 5.3 mmol/L (3.5-5.1)
--- NOTE | 2018-08-15 20:56 | CONSULT ---
Consult Consult Specialty:: endocrine Referred by:: dr.rocco meneses Reason for Consultation:: diabetes mellitus uncontrolled - History of Present Illness Chief Complaint: high sugars History of Present Illness: 47yo M with PMH of morbid obesity,DM2, lymphedema,HTN, HLD, COPD TATI,on home oxygen (recently increased to 4L O2) presenting with chest pain, shortness of breath, and cough. Patient states . He has not taken breathing treatments for over a month due to problems with the machine. He is not currently on steroids or antibiotics. Chest pain is described as sharp and present on the left side of his chest. He has been previously evaluated and screened by bariat[facility] group in [facility],however was unable to complete the screening process,has had high sugars and left groin infection,weakness and pain in left groin. - Past Medical History Cardio/Vascular: Yes: HTN, Hyperlipdemia, Pulmonary Hypertension, Other (morbid obesity; sedentary) Pulmonary: Yes: Bronchitis, COPD Renal/: Yes: Renal Inusuff Psych: Yes: Anxiety Endocrine: Yes: Diabetes Mellitus - Past Surgical History Past Surgical History: Yes: Arthrosocopy (b/l knees) - Alcohol/Substance Use Hx Alcohol Use: No History of Substance Use: reports: None - Smoking History Smoking history: Unknown if ever smoked Have you smoked in the past 12 months: No Aproximately how many cigarettes per day: 0 If you are a former smoker, when did you quit?: 1998 Home Medications - Allergies Allergies/Adverse Reactions: Allergies Allergy/AdvReac Type Severity Reaction Status Date / Time No Known Allergies Allergy Verified 08/12/18 20:42 - Home Medications Home Medications: Ambulatory Orders Aspirin 81 mg PO DAILY 08/13/18 Gabapentin [Neurontin -] 300 mg PO Q8H 08/13/18 Hydralazine HCl 25 mg PO TID 08/13/18 Omeprazole 20 mg PO DAILY 08/13/18 Rosuvastatin [Crestor -] 5 mg PO HS 08/13/18 Review of Systems - Review of Systems Constitutional: reports: Lethargy, Weakness Eyes: reports: No Symptoms HENT: reports: No Symptoms Neck: reports: No Symptoms Cardiovascular: reports: Edema, Shortness of Breath Respiratory: reports: Cough, Orthopnea, PND, Snoring, SOB, SOB on Exertion Gastrointestinal: reports: Nausea Genitourinary: reports: Flank Pain Musculoskeletal: reports: Joint Swelling, Muscle Pain, Muscle Cramps Neurological: reports: Numbness, Weakness Endocrine: reports: Excessive Sweating, Increased Hunger, Unexplained Weight Gain Physical Exam Vital Signs: Vital Signs Temperature 98.0 F 08/15/18 17:45 Pulse Rate 95 H 08/15/18 17:45 Respiratory Rate 22 H 08/15/18 17:45 Blood Pressure 147/80 08/15/18 17:45 O2 Sat by Pulse Oximetry (%) 91 L 08/15/18 08:58 Constitutional: Yes: Anxious Eyes: Yes: EOM Intact HENT: Yes: Normocephalic Neck: Yes: Trachea Midline Cardiovascular: Yes: Tachycardia Respiratory: Yes: On Nasal O2, Rhonchi, SOB, Tachypnea, Wheezes Gastrointestinal: Yes: Normal Bowel Sounds, Abdomen, Obese ...Rectal Exam: Yes: Deferred Renal/: Yes: WNL Breast(s): Yes: Gynecomastia Musculoskeletal: Yes: Back Pain, Joint Swelling, Muscle Pain, Muscle Weakness Extremities: Yes: Delayed Capillary Refill Edema: Yes Edema: LLE: 4+ (lympedema bilateral), RLE: 3+ Integumentary: Yes: Onychomycosis, Venous Stasis Changes, Other Wound/Incision: Yes: Draining, Reddened, Excoriated Neurological: Yes: Alert, Oriented, Numbness, Weakness Labs: CBC, BMP 08/15/18 07:25 08/15/18 13:36 Problem List - Problems (1) Type 2 diabetes mellitus with hyperosmolarity without nonketotic hyperglycemic-hyperosmolar coma ([facility]) Code(s): E11.00 - TYPE 2 DIAB W HYPROSM W/O NONKET HYPRGLY-HYPROS COMA ([facility]) (2) Acute on chronic kidney failure Code(s): N17.9 - ACUTE KIDNEY FAILURE, UNSPECIFIED; N18.9 - CHRONIC KIDNEY DISEASE, UNSPECIFIED (3) CKD (chronic kidney disease) Code(s): N18.9 - CHRONIC KIDNEY DISEASE, UNSPECIFIED (4) COPD exacerbation Code(s): J44.1 - CHRONIC OBSTRUCTIVE PULMONARY DISEASE W (ACUTE) EXACERBATION (5) Acute exacerbation of CHF (congestive heart failure) Code(s): I50.9 - HEART FAILURE, UNSPECIFIED (6) Acute on chronic respiratory failure with hypoxia and hypercapnia Code(s): J96.21 - ACUTE AND CHRONIC RESPIRATORY FAILURE WITH HYPOXIA; J96.22 - ACUTE AND CHRONIC RESPIRATORY FAILURE WITH HYPERCAPNIA (7) Acute renal failure Code(s): N17.9 - ACUTE KIDNEY FAILURE, UNSPECIFIED Assessment/Plan Current Active Problems Abnormal Lab Results 08/15/18 08/15/18 08/15/18 07:25 07:25 07:25 WBC 10.6 H Hgb 11.2 L MCHC 29.9 L RDW 16.6 H Absolute Neuts (auto) 10.1 H Neutrophils % 95.2 H Neutrophils % (Manual) 96.0 H Lymphocytes % 2.4 L Lymphocytes % (Manual) 1.0 L D Monocytes % 2.3 L Monocytes % (Manual) 0 L D Potassium 6.0 H Anion Gap 7 L BUN 59 H Creatinine 2.8 H Random Glucose 396 H* AST 9 L Creatine Kinase 323 H CK-MB (CK-2) 6.0 H Albumin 2.9 L 08/15/18 13:36 WBC Hgb MCHC RDW Absolute Neuts (auto) Neutrophils % Neutrophils % (Manual) Lymphocytes % Lymphocytes % (Manual) Monocytes % Monocytes % (Manual) Potassium 5.3 H Anion Gap 5 L BUN 60 H Creatinine 2.9 H Random Glucose 391 H* AST Creatine Kinase CK-MB (CK-2) Albumin Laboratory Results - last 24 hr 08/14/18 08/15/18 08/15/18 22:14 06:15 07:25 WBC RBC Hgb Hct MCV MCH MCHC RDW Plt Count MPV Absolute Neuts (auto) Neutrophils % Neutrophils % (Manual) Band Neutrophils % Lymphocytes % Lymphocytes % (Manual) Monocytes % Monocytes % (Manual) Eosinophils % Eosinophils % (Manual) Basophils % Basophils % (Manual) Myelocytes % (Man) Promyelocytes % (Man) Blast Cells % (Manual) Nucleated RBC % Metamyelocytes Hypochromia Platelet Estimate Polychromasia Poikilocytosis Anisocytosis Microcytosis Macrocytosis Sodium Potassium Chloride Carbon Dioxide Anion Gap BUN Creatinine Est GFR (CKD-EPI)AfAm Est GFR (CKD-EPI)NonAf POC Glucometer 370 377 Random Glucose Calcium Total Bilirubin AST ALT Alkaline Phosphatase Creatine Kinase 323 H Creatine Kinase Index 1.8 CK-MB (CK-2) 6.0 H Troponin I 0.02 Total Protein Albumin 08/15/18 08/15/18 08/15/18 07:25 07:25 09:45 WBC 10.6 H RBC 4.09 Hgb 11.2 L Hct 37.4 MCV 91.4 MCH 27.4 MCHC 29.9 L RDW 16.6 H Plt Count 289 MPV 8.1 Absolute Neuts (auto) 10.1 H Neutrophils % 95.2 H Neutrophils % (Manual) 96.0 H Band Neutrophils % 1.0 Lymphocytes % 2.4 L Lymphocytes % (Manual) 1.0 L D Monocytes % 2.3 L Monocytes % (Manual) 0 L D Eosinophils % 0.0 Eosinophils % (Manual) 0.0 Basophils % 0.1 Basophils % (Manual) 0.0 Myelocytes % (Man) 1 D Promyelocytes % (Man) 0 Blast Cells % (Manual) 0 Nucleated RBC % 0 Metamyelocytes 1 D Hypochromia 0 Platelet Estimate Normal Polychromasia 1+ Poikilocytosis 0 Anisocytosis 1+ Microcytosis 1+ Macrocytosis 0 Sodium 138 Potassium 6.0 H Chloride 104 Carbon Dioxide 27 Anion Gap 7 L BUN 59 H Creatinine 2.8 H Est GFR (CKD-EPI)AfAm 29.37 Est GFR (CKD-EPI)NonAf 25.34 POC Glucometer 341 Random Glucose 396 H* Calcium 8.9 Total Bilirubin 0.6 AST 9 L ALT 26 Alkaline Phosphatase 114 Creatine Kinase Creatine Kinase Index CK-MB (CK-2) Troponin I Total Protein 7.0 Albumin 2.9 L 08/15/18 08/15/18 08/15/18 11:34 11:37 13:36 WBC RBC Hgb Hct MCV MCH MCHC RDW Plt Count MPV Absolute Neuts (auto) Neutrophils % Neutrophils % (Manual) Band Neutrophils % Lymphocytes % Lymphocytes % (Manual) Monocytes % Monocytes % (Manual) Eosinophils % Eosinophils % (Manual) Basophils % Basophils % (Manual) Myelocytes % (Man) Promyelocytes % (Man) Blast Cells % (Manual) Nucleated RBC % Metamyelocytes Hypochromia Platelet Estimate Polychromasia Poikilocytosis Anisocytosis Microcytosis Macrocytosis Sodium 137 Potassium 5.3 H Chloride 103 Carbon Dioxide 29 Anion Gap 5 L BUN 60 H Creatinine 2.9 H Est GFR (CKD-EPI)AfAm 28.15 Est GFR (CKD-EPI)NonAf 24.29 POC Glucometer 397 432 Random Glucose 391 H* Calcium 8.6 Total Bilirubin AST ALT Alkaline Phosphatase Creatine Kinase Creatine Kinase Index CK-MB (CK-2) Troponin I Total Protein Albumin 08/15/18 17:12 WBC RBC Hgb Hct MCV MCH MCHC RDW Plt Count MPV Absolute Neuts (auto) Neutrophils % Neutrophils % (Manual) Band Neutrophils % Lymphocytes % Lymphocytes % (Manual) Monocytes % Monocytes % (Manual) Eosinophils % Eosinophils % (Manual) Basophils % Basophils % (Manual) Myelocytes % (Man) Promyelocytes % (Man) Blast Cells % (Manual) Nucleated RBC % Metamyelocytes Hypochromia Platelet Estimate Polychromasia Poikilocytosis Anisocytosis Microcytosis Macrocytosis Sodium Potassium Chloride Carbon Dioxide Anion Gap BUN Creatinine Est GFR (CKD-EPI)AfAm Est GFR (CKD-EPI)NonAf POC Glucometer 355 Random Glucose Calcium Total Bilirubin AST ALT Alkaline Phosphatase Creatine Kinase Creatine Kinase Index CK-MB (CK-2) Troponin I Total Protein Albumin Acute on chronic kidney failure (Acute) CKD (chronic kidney disease) (Acute) COPD exacerbation (Acute) Chest pain (Acute) Type 2 diabetes mellitus with hyperosmolarity without nonketotic hyperglycemic- hyperosmolar coma ([facility]) (Acute) plan: bgm qid novolog scale novolog 70/30 bid doses ck [id number] surgery consult left groin abscess
[2018-08-15] MEDS: ROSUVASTATIN CA 5 MG TABLET (FP) PO SCH (22:11)
--- NOTE | 2018-08-15 22:42 | PN ---
Progress Note, Physician - Current Medication List Current Medications: Active Medications Albuterol Sulfate (Ventolin 0.083% Nebulizer Soln -) 1 amp NEB Q1H PRN PRN Reason: SHORT OF BREATH/WHEEZING Albuterol Sulfate (Ventolin 0.083% Nebulizer Soln -) 1 amp NEB Q1H PRN PRN Reason: SHORT OF BREATH/WHEEZING Albuterol/Ipratropium (Duoneb -) 1 amp NEB Q6H PRN PRN Reason: SHORTNESS OF BREATH Last Admin: 08/15/18 09:12 Dose: 1 amp Aspirin (Asa -) 81 mg PO DAILY [facility] Last Admin: 08/15/18 09:00 Dose: 81 mg Budesonide/Formoterol Fumarate (Symbicort 160/4.5mcg -) 1 puff IH BID [facility] Last Admin: 08/15/18 09:05 Dose: 1 puff Docusate Sodium (Colace -) 100 mg PO DAILY [facility] Last Admin: 08/15/18 09:00 Dose: 100 mg Enoxaparin Sodium (Lovenox -) 80 mg SQ Q12H [facility] Last Admin: 08/13/18 03:19 Dose: 80 mg Ferrous Sulfate (Feosol -) 325 mg PO TID [facility] Last Admin: 08/15/18 22:11 Dose: 325 mg Furosemide (Lasix Injection -) 40 mg IVPUSH BID@0600,1400 [facility] Last Admin: 08/15/18 13:25 Dose: 40 mg Gabapentin (Neurontin -) 300 mg PO TID [facility] Last Admin: 08/15/18 22:12 Dose: 300 mg Hydralazine HCl (Apresoline -) 25 mg PO TID [facility] Last Admin: 08/15/18 22:12 Dose: 25 mg Azithromycin 250 mg/ Dextrose 250 mls @ 250 mls/hr IVPB DAILY [facility] Last Admin: 08/15/18 09:05 Dose: 250 mls/hr Ceftriaxone Sodium 1 gm/ (Dextrose) 50 mls @ 100 mls/hr IVPB DAILY [facility]; Protocol Last Admin: 08/15/18 09:01 Dose: 100 mls/hr Insulin Aspart (Novolog Vial Sliding Scale -) 1 vial SQ Q4HPO [facility]; Protocol Insulin Aspart (Novolog Mix 70/30 Vial) 20 units SQ BIDAC [facility] Insulin Detemir (Levemir Vial) 20 units SQ HS [facility] Methylprednisolone Sodium Succinate (Solu-Medrol -) 40 mg IVPUSH Q8H-IV [facility] Last Admin: 08/15/18 17:19 Dose: 40 mg Nifedipine (Procardia Xl -) 90 mg PO DAILY [facility] Last Admin: 08/15/18 09:00 Dose: 90 mg Rosuvastatin Calcium (Crestor -) 5 mg PO [facility] Last Admin: 08/15/18 22:11 Dose: 5 mg Sodium Zirconium Cyclosilicate (Lokelma) 10 gm PO DAILY [facility] Last Admin: 08/15/18 12:00 Dose: 10 gm Tamsulosin HCl (Flomax -) 0.4 mg PO DAILY@0830 [facility] Last Admin: 08/15/18 09:00 Dose: 0.4 mg - Objective Vital Signs: Vital Signs Temperature 98.0 F 08/15/18 17:45 Pulse Rate 95 H 08/15/18 17:45 Respiratory Rate 22 H 08/15/18 17:45 Blood Pressure 147/80 08/15/18 17:45 O2 Sat by Pulse Oximetry (%) 91 L 08/15/18 08:58 Labs: CBC, BMP 08/15/18 07:25 08/15/18 13:36 INR, PTT INR 1.10 (0.83-1.09) H 08/12/18 21:00
[2018-08-15] MEDS: INSULIN (LEVEMIR) 100 UNITS/ML UNITS SQ SCH (22:55)
[2018-08-16] MEDS: INSULIN SLIDING SCALE (NOVOLOG) 1 VIAL SQ SCH ×6 (02:07→22:56)
[2018-08-16] MEDS: methylPREDNISolone NA SUCC 40 MG/1 ML VIAL IVPUSH SCH ×3 (02:09→18:58)
[2018-08-16] MEDS: hydrALAZINE HCL 25 MG TABLET (FP) PO SCH (05:58)
[2018-08-16] MEDS: GABAPENTIN 300 MG CAPSULE (FP) PO SCH ×3 (05:58→22:54)
[2018-08-16] MEDS: FERROUS SO4 325 MG TABLET (FP) PO SCH ×3 (05:59→22:54)
[2018-08-16] MEDS: FUROSEMIDE 40 MG/4 ML INJECTABLE VIAL IVPUSH SCH ×2 (05:59→13:21)
[2018-08-16 07:37] LABS: ALBUMIN 3.2 g/dl (3.4-5.0); BILIRUBIN,TOTAL 0.7 mg/dL (0.2-1); CALCIUM 8.9 mg/dL (8.5-10.1); CREATININE 2.7 mg/dL (0.55-1.3); POTASSIUM 5.2 mmol/L (3.5-5.1); TOT PROT 7.6 g/dl (6.4-8.2)
[2018-08-16 08:38] LABS: BASO % 0.2 % (0-2.0); HEMATOCRIT 38.7 % (35.4-49); HEMOGLOBIN 11.7 GM/dL (11.7-16.9); LYMPH % 3.3 % (8-40); MCHC 30.1 g/dl (32.0-35.9); MEAN CELL VOLUME 89.8 fl (80-96); MEAN PLT VOLUME 7.6 fl (7.5-11.1); NEUT % 93.5 % (42.8-82.8); PLATELET COUNT 386 K/MM3 (134-434); RBC 4.31 M/mm3 (4.00-5.60); RDW 16.9 % (11.9-15.9); WHITE BLOOD COUNT 11.8 K/mm3 (4.0-10.0)
--- NOTE | 2018-08-16 08:38 | PN ---
Progress Note, Physician History of Present Illness: pulmonary alert,oob-chair,less dyspneic at rest,+ still very sob with minimal exertion on nasal o2 5l - Current Medication List Current Medications: Active Medications Albuterol Sulfate (Ventolin 0.083% Nebulizer Soln -) 1 amp NEB Q1H PRN PRN Reason: SHORT OF BREATH/WHEEZING Albuterol Sulfate (Ventolin 0.083% Nebulizer Soln -) 1 amp NEB Q1H PRN PRN Reason: SHORT OF BREATH/WHEEZING Albuterol/Ipratropium (Duoneb -) 1 amp NEB Q6H PRN PRN Reason: SHORTNESS OF BREATH Last Admin: 08/15/18 09:12 Dose: 1 amp Aspirin (Asa -) 81 mg PO DAILY [facility] Last Admin: 08/15/18 09:00 Dose: 81 mg Budesonide/Formoterol Fumarate (Symbicort 160/4.5mcg -) 1 puff IH BID [facility] Last Admin: 08/15/18 09:45 Dose: 1 puff Docusate Sodium (Colace -) 100 mg PO DAILY [facility] Last Admin: 08/15/18 09:00 Dose: 100 mg Enoxaparin Sodium (Lovenox -) 40 mg SQ DAILY [facility] Ferrous Sulfate (Feosol -) 325 mg PO TID [facility] Last Admin: 08/16/18 05:59 Dose: 325 mg Furosemide (Lasix Injection -) 40 mg IVPUSH BID@0600,1400 [facility] Last Admin: 08/16/18 05:59 Dose: 40 mg Gabapentin (Neurontin -) 300 mg PO TID [facility] Last Admin: 08/16/18 05:58 Dose: 300 mg Hydralazine HCl (Apresoline -) 25 mg PO TID [facility] Last Admin: 08/16/18 05:58 Dose: 25 mg Azithromycin 250 mg/ Dextrose 250 mls @ 250 mls/hr IVPB DAILY [facility] Last Admin: 08/15/18 09:05 Dose: 250 mls/hr Ceftriaxone Sodium 1 gm/ (Dextrose) 50 mls @ 100 mls/hr IVPB DAILY [facility]; Protocol Last Admin: 08/15/18 09:01 Dose: 100 mls/hr Insulin Aspart (Novolog Vial Sliding Scale -) 1 vial SQ Q4HPO [facility]; Protocol Last Admin: 08/16/18 06:00 Dose: 8 units Insulin Aspart (Novolog Mix 70/30 Vial) 20 units SQ BIDAC [facility] Insulin Detemir (Levemir Vial) 20 units SQ [facility] Last Admin: 08/15/18 22:55 Dose: 20 units Methylprednisolone Sodium Succinate (Solu-Medrol -) 40 mg IVPUSH Q8H-IV [facility] Last Admin: 08/16/18 02:09 Dose: 40 mg Nifedipine (Procardia Xl -) 90 mg PO DAILY [facility] Last Admin: 08/15/18 09:00 Dose: 90 mg Rosuvastatin Calcium (Crestor -) 5 mg PO [facility] Last Admin: 08/15/18 22:11 Dose: 5 mg Sodium Zirconium Cyclosilicate (Lokelma) 10 gm PO DAILY [facility] Last Admin: 08/15/18 12:00 Dose: 10 gm Tamsulosin HCl (Flomax -) 0.4 mg PO DAILY@0830 [facility] Last Admin: 08/15/18 09:00 Dose: 0.4 mg - Objective Vital Signs: Vital Signs Temperature 97.5 F L 08/16/18 06:00 Pulse Rate 79 08/16/18 06:00 Respiratory Rate 20 08/16/18 06:00 Blood Pressure 173/102 H 08/16/18 06:00 O2 Sat by Pulse Oximetry (%) 94 L 08/15/18 22:00 Constitutional: Yes: Calm, Obese Eyes: Yes: WNL HENT: Yes: WNL Neck: Yes: WNL Cardiovascular: Yes: Regular Rate and Rhythm, S1, S2 Respiratory: Yes: Diminished Gastrointestinal: Yes: Normal Bowel Sounds, Abdomen, Obese Extremities: Yes: WNL Edema: Yes Labs: CBC, BMP Problem List - Problems (1) CKD (chronic kidney disease) Code(s): N18.9 - CHRONIC KIDNEY DISEASE, UNSPECIFIED (2) COPD exacerbation Code(s): J44.1 - CHRONIC OBSTRUCTIVE PULMONARY DISEASE W (ACUTE) EXACERBATION (3) Acute exacerbation of CHF (congestive heart failure) Code(s): I50.9 - HEART FAILURE, UNSPECIFIED (4) Acute on chronic respiratory failure with hypoxia and hypercapnia Code(s): J96.21 - ACUTE AND CHRONIC RESPIRATORY FAILURE WITH HYPOXIA; J96.22 - ACUTE AND CHRONIC RESPIRATORY FAILURE WITH HYPERCAPNIA (5) Acute renal failure Code(s): N17.9 - ACUTE KIDNEY FAILURE, UNSPECIFIED (6) Diabetes Code(s): E11.9 - TYPE 2 DIABETES MELLITUS WITHOUT COMPLICATIONS (7) Hypertension Code(s): I10 - ESSENTIAL (PRIMARY) HYPERTENSION Qualifiers: Hypertension type: unspecified Qualified Code(s): I10 - Essential (primary ) hypertension (8) Morbid exogenous obesity Code(s): E66.01 - MORBID (SEVERE) OBESITY DUE TO EXCESS CALORIES (9) Morbid obesity Code(s): E66.01 - MORBID (SEVERE) OBESITY DUE TO EXCESS CALORIES (10) Obesity hypoventilation syndrome Code(s): E66.2 - MORBID (SEVERE) OBESITY WITH ALVEOLAR HYPOVENTILATION (11) Pulmonary HTN Code(s): I27.2 - OTHER SECONDARY PULMONARY HYPERTENSION * DO NOT USE * (12) Respiratory distress Code(s): R06.00 - DYSPNEA, UNSPECIFIED (13) Shortness of breath Code(s): R06.02 - SHORTNESS OF BREATH (14) Sleep apnea Code(s): G47.30 - SLEEP APNEA, UNSPECIFIED (15) Acute on chronic kidney failure Code(s): N17.9 - ACUTE KIDNEY FAILURE, UNSPECIFIED; N18.9 - CHRONIC KIDNEY DISEASE, UNSPECIFIED Assessment/Plan IMP ACUTE ON CHRONIC HYPOXEMIC RESPIRATORY FAILURE IMPROVING CHRONIC HYPOXEMIC/HYPERCAPNEIC RESPIRATORY FAILURE COPD EXACERBATION IMPROVING DIASTOLIC HF CHEST PAIN PULMONARY HTN COR PULMONALE OBESITY-HYPOVENTILATION SYNDROME ACUTE ON CHRONIC KIDNEY DISEASE HTN DM TATI PLAN NIPPV TO HELP REDUCE WORK OF BREATHING O2 TO MAINTAIN O2 SAT 90% OR GREATER MEDROL SAME DOSE ABX INHALED BRONCHODILATORS LASIX DAILY WT DVT PROPHYLAXIS MONITOR LYTES,RENAL FUNCTION STRICT I+OS F/U ABGS DR SALVADOR Problem List - Problems (1) CKD (chronic kidney disease) Code(s): N18.9 - CHRONIC KIDNEY DISEASE, UNSPECIFIED (2) COPD exacerbation Code(s): J44.1 - CHRONIC OBSTRUCTIVE PULMONARY DISEASE W (ACUTE) EXACERBATION (3) Acute exacerbation of CHF (congestive heart failure) Code(s): I50.9 - HEART FAILURE, UNSPECIFIED (4) Acute on chronic respiratory failure with hypoxia and hypercapnia Code(s): J96.21 - ACUTE AND CHRONIC RESPIRATORY FAILURE WITH HYPOXIA; J96.22 - ACUTE AND CHRONIC RESPIRATORY FAILURE WITH HYPERCAPNIA (5) Acute renal failure Code(s): N17.9 - ACUTE KIDNEY FAILURE, UNSPECIFIED (6) Diabetes Code(s): E11.9 - TYPE 2 DIABETES MELLITUS WITHOUT COMPLICATIONS (7) Hypertension Code(s): I10 - ESSENTIAL (PRIMARY) HYPERTENSION Qualifiers: Hypertension type: unspecified Qualified Code(s): I10 - Essential (primary ) hypertension (8) Morbid exogenous obesity Code(s): E66.01 - MORBID (SEVERE) OBESITY DUE TO EXCESS CALORIES (9) Morbid obesity Code(s): E66.01 - MORBID (SEVERE) OBESITY DUE TO EXCESS CALORIES (10) Obesity hypoventilation syndrome Code(s): E66.2 - MORBID (SEVERE) OBESITY WITH ALVEOLAR HYPOVENTILATION (11) Pulmonary HTN Code(s): I27.2 - OTHER SECONDARY PULMONARY HYPERTENSION * DO NOT USE * (12) Respiratory distress Code(s): R06.00 - DYSPNEA, UNSPECIFIED (13) Shortness of breath Code(s): R06.02 - SHORTNESS OF BREATH (14) Sleep apnea Code(s): G47.30 - SLEEP APNEA, UNSPECIFIED (15) Acute on chronic kidney failure Code(s): N17.9 - ACUTE KIDNEY FAILURE, UNSPECIFIED; N18.9 - CHRONIC KIDNEY DISEASE, UNSPECIFIED
[2018-08-16] MEDS ORDERED: DEXTROSE 5%-WATER - 50 ML IVPB ONE (08:48)
[2018-08-16] MEDS ORDERED: cefTRIAXone SODIUM 1 GM VIAL ONE (08:48)
[2018-08-16] MEDS: CEFTRIAXONE 1 GM in DEXTROSE 5%-WATER - 50 ML IVPB SCH (09:13)
[2018-08-16] MEDS: ENOXAPARIN NA (PORCINE) 40 MG/0.4 ML DISP.SYRIN SQ SCH (09:14)
[2018-08-16] MEDS: TAMSULOSIN HCL 0.4 MG CAP PO SCH (09:14)
[2018-08-16] MEDS: ASPIRIN 81 MG CHEWABLE TABLETS PO SCH (09:14)
[2018-08-16] MEDS: BUDESONIDE/FORMETEROL FUMARATE 160/4.5 mcg INHALER IH SCH ×2 (09:14→22:45)
[2018-08-16] MEDS: NIFEdipine E.R. 90 MG TABLET (FP) PO SCH (09:14)
[2018-08-16] MEDS: DOCUSATE SODIUM 100 MG CAPSULE (FP) PO SCH (09:14)
[2018-08-16] MEDS: AZITHROMYCIN IVPB 250 MG in DEXTROSE 5%-WATER - 250 ML IVPB SCH (09:50)
--- NOTE | 2018-08-16 10:38 | PN ---
Progress Note, Physician Chief Complaint: Events noted Coverage for Dr. Jain and Gaurang Not in distress Sitting History of Present Illness: Patient was seen and examined. Awake and alert. Chart was reviewed Morbid obesity and on O2 NC - Current Medication List Current Medications: Active Medications Albuterol Sulfate (Ventolin 0.083% Nebulizer Soln -) 1 amp NEB Q1H PRN PRN Reason: SHORT OF BREATH/WHEEZING Albuterol Sulfate (Ventolin 0.083% Nebulizer Soln -) 1 amp NEB Q1H PRN PRN Reason: SHORT OF BREATH/WHEEZING Albuterol/Ipratropium (Duoneb -) 1 amp NEB Q6H PRN PRN Reason: SHORTNESS OF BREATH Last Admin: 08/15/18 09:12 Dose: 1 amp Aspirin (Asa -) 81 mg PO DAILY [facility] Last Admin: 08/16/18 09:14 Dose: 81 mg Budesonide/Formoterol Fumarate (Symbicort 160/4.5mcg -) 1 puff IH BID [facility] Last Admin: 08/16/18 09:14 Dose: 1 puff Docusate Sodium (Colace -) 100 mg PO DAILY [facility] Last Admin: 08/16/18 09:14 Dose: 100 mg Enoxaparin Sodium (Lovenox -) 40 mg SQ DAILY [facility] Last Admin: 08/16/18 09:14 Dose: 40 mg Ferrous Sulfate (Feosol -) 325 mg PO TID [facility] Last Admin: 08/16/18 05:59 Dose: 325 mg Furosemide (Lasix Injection -) 40 mg IVPUSH BID@0600,1400 [facility] Last Admin: 08/16/18 05:59 Dose: 40 mg Gabapentin (Neurontin -) 300 mg PO TID [facility] Last Admin: 08/16/18 05:58 Dose: 300 mg Hydralazine HCl (Apresoline -) 25 mg PO TID [facility] Last Admin: 08/16/18 05:58 Dose: 25 mg Azithromycin 250 mg/ Dextrose 250 mls @ 250 mls/hr IVPB DAILY [facility] Last Admin: 08/16/18 09:50 Dose: 250 mls/hr Ceftriaxone Sodium 1 gm/ (Dextrose) 50 mls @ 100 mls/hr IVPB DAILY [facility]; Protocol Last Admin: 08/16/18 09:13 Dose: 100 mls/hr Insulin Aspart (Novolog Vial Sliding Scale -) 1 vial SQ Q4HPO [facility]; Protocol Last Admin: 08/16/18 06:00 Dose: 8 units Insulin Aspart (Novolog Mix 70/30 Vial) 20 units SQ BIDAC [facility] Insulin Detemir (Levemir Vial) 20 units SQ [facility] Last Admin: 08/15/18 22:55 Dose: 20 units Methylprednisolone Sodium Succinate (Solu-Medrol -) 40 mg IVPUSH Q8H-IV [facility] Last Admin: 08/16/18 09:14 Dose: 40 mg Nifedipine (Procardia Xl -) 90 mg PO DAILY [facility] Last Admin: 08/16/18 09:14 Dose: 90 mg Rosuvastatin Calcium (Crestor -) 5 mg PO [facility] Last Admin: 08/15/18 22:11 Dose: 5 mg Sodium Zirconium Cyclosilicate (Lokelma) 10 gm PO DAILY [facility] Last Admin: 08/15/18 12:00 Dose: 10 gm Tamsulosin HCl (Flomax -) 0.4 mg PO DAILY@0830 [facility] Last Admin: 08/16/18 09:14 Dose: 0.4 mg - Objective Vital Signs: Vital Signs Temperature 97.5 F L 08/16/18 06:00 Pulse Rate 79 08/16/18 06:00 Respiratory Rate 20 08/16/18 06:00 Blood Pressure 173/102 H 08/16/18 06:00 O2 Sat by Pulse Oximetry (%) 94 L 08/15/18 22:00 Eyes: Yes: PERRL HENT: Yes: Atraumatic Neck: Yes: Supple Cardiovascular: Yes: Regular Rate and Rhythm, S1, S2 Respiratory: Yes: Diminished Gastrointestinal: Yes: Normal Bowel Sounds, Soft, Abdomen, Obese. No: Tenderness Edema: Yes Additional Findings/Remarks: - Review of Systems Constitutional: denies: Chills, Fever Cardiovascular: reports: Shortness of Breath. denies: Chest Pain, Palpitations Respiratory: reports: Cough, SOB, SOB on Exertion. denies: Hemoptysis, Orthopnea, Wheezing Gastrointestinal: denies: Abdominal Pain, Constipation, Diarrhea, Melena, Nausea , Rectal Bleeding, Vomiting Genitourinary: denies: Dysuria, Hematuria Musculoskeletal: denies: Back Pain, Joint Pain Neurological: denies: Dizziness, Headache, Seizure, Syncope Labs: CBC, BMP 08/16/18 06:00 08/16/18 06:00 Problem List - Problems (1) CKD (chronic kidney disease) Code(s): N18.9 - CHRONIC KIDNEY DISEASE, UNSPECIFIED (2) COPD exacerbation Code(s): J44.1 - CHRONIC OBSTRUCTIVE PULMONARY DISEASE W (ACUTE) EXACERBATION (3) Acute exacerbation of CHF (congestive heart failure) Code(s): I50.9 - HEART FAILURE, UNSPECIFIED (4) Diabetes Code(s): E11.9 - TYPE 2 DIABETES MELLITUS WITHOUT COMPLICATIONS (5) Hyperlipidemia Code(s): E78.5 - HYPERLIPIDEMIA, UNSPECIFIED (6) Hypertension Code(s): I10 - ESSENTIAL (PRIMARY) HYPERTENSION Qualifiers: Hypertension type: unspecified Qualified Code(s): I10 - Essential (primary ) hypertension (7) Morbid obesity Code(s): E66.01 - MORBID (SEVERE) OBESITY DUE TO EXCESS CALORIES (8) Pulmonary HTN Code(s): I27.2 - OTHER SECONDARY PULMONARY HYPERTENSION * DO NOT USE * (9) Sleep apnea Code(s): G47.30 - SLEEP APNEA, UNSPECIFIED Assessment/Plan 1. COPD exacerbation dependent on home O2 2. Morbid obesity 3. HTN 4. Hypercholesterolemia 5. CKD 6. 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 Hyperglycemia/DM PLAN: 1. Continue Nifedipine ER and Hydralazine and uptitrate for labile HTN - May increase Hydralazine to 50 mg TID 2. Continue Diuretics including IV Furosemide and Metolazone 3. ASA 4. Statin (Rosuvastatin) 5. DVT prophylaxis 6. Steroid taper, bronchodilator, O2 and BIPAP as tolerated 7. Empiric antibiotics 8. Monitor renal function and electrolytes Dr. Merlos to resume care tomorrow Further plans are to follow Neno Bullard MD
[2018-08-16 10:55] LABS: ANISOCYTOSIS 1+; MACROCYTOSIS 1+; OVALOCYTE 1+; PLATELET ESTIMATE NORMAL
--- NOTE | 2018-08-16 11:02 | PN ---
Progress Note, Physician History of Present Illness: Pt seen and examined at bedside. He is awake and alert. He does not feel that his breathing is much different than yesterday. - Current Medication List Current Medications: Active Medications Albuterol Sulfate (Ventolin 0.083% Nebulizer Soln -) 1 amp NEB Q1H PRN PRN Reason: SHORT OF BREATH/WHEEZING Albuterol/Ipratropium (Duoneb -) 1 amp NEB Q6H PRN PRN Reason: SHORTNESS OF BREATH Last Admin: 08/15/18 09:12 Dose: 1 amp Aspirin (Asa -) 81 mg PO DAILY [facility] Last Admin: 08/16/18 09:14 Dose: 81 mg Budesonide/Formoterol Fumarate (Symbicort 160/4.5mcg -) 1 puff IH BID [facility] Last Admin: 08/16/18 09:14 Dose: 1 puff Docusate Sodium (Colace -) 100 mg PO DAILY [facility] Last Admin: 08/16/18 09:14 Dose: 100 mg Enoxaparin Sodium (Lovenox -) 40 mg SQ DAILY [facility] Last Admin: 08/16/18 09:14 Dose: 40 mg Ferrous Sulfate (Feosol -) 325 mg PO TID [facility] Last Admin: 08/16/18 05:59 Dose: 325 mg Furosemide (Lasix Injection -) 40 mg IVPUSH BID@0600,1400 [facility] Last Admin: 08/16/18 05:59 Dose: 40 mg Gabapentin (Neurontin -) 300 mg PO TID [facility] Last Admin: 08/16/18 05:58 Dose: 300 mg Hydralazine HCl (Apresoline -) 50 mg PO TID [facility] Azithromycin 250 mg/ Dextrose 250 mls @ 250 mls/hr IVPB DAILY [facility] Last Admin: 08/16/18 09:50 Dose: 250 mls/hr Ceftriaxone Sodium 1 gm/ (Dextrose) 50 mls @ 100 mls/hr IVPB DAILY [facility]; Protocol Last Admin: 08/16/18 09:13 Dose: 100 mls/hr Insulin Aspart (Novolog Vial Sliding Scale -) 1 vial SQ Q4HPO [facility]; Protocol Last Admin: 08/16/18 06:00 Dose: 8 units Insulin Aspart (Novolog Mix 70/30 Vial) 20 units SQ BIDAC [facility] Insulin Detemir (Levemir Vial) 20 units SQ HS [facility] Last Admin: 08/15/18 22:55 Dose: 20 units Methylprednisolone Sodium Succinate (Solu-Medrol -) 40 mg IVPUSH Q8H-IV [facility] Last Admin: 08/16/18 09:14 Dose: 40 mg Nifedipine (Procardia Xl -) 90 mg PO DAILY [facility] Last Admin: 08/16/18 09:14 Dose: 90 mg Rosuvastatin Calcium (Crestor -) 5 mg PO [facility] Last Admin: 08/15/18 22:11 Dose: 5 mg Sodium Zirconium Cyclosilicate (Lokelma) 10 gm PO DAILY [facility] Last Admin: 08/15/18 12:00 Dose: 10 gm Tamsulosin HCl (Flomax -) 0.4 mg PO DAILY@0830 [facility] Last Admin: 08/16/18 09:14 Dose: 0.4 mg - Objective Vital Signs: Vital Signs Temperature 97.5 F L 08/16/18 06:00 Pulse Rate 79 08/16/18 06:00 Respiratory Rate 20 08/16/18 06:00 Blood Pressure 173/102 H 08/16/18 06:00 O2 Sat by Pulse Oximetry (%) 94 L 08/15/18 22:00 Constitutional: Yes: Calm Eyes: Yes: Conjunctiva Clear HENT: Yes: Atraumatic Cardiovascular: Yes: S1, S2 Respiratory: Yes: CTA Bilaterally, On Nasal O2 Gastrointestinal: Yes: Soft, Abdomen, Obese Genitourinary: Yes: Ibrahim Present Musculoskeletal: Yes: WNL Edema: Yes Edema: LUE: 1+, RUE: 1+, LLE: 2+, RLE: 2+ Integumentary: Yes: Venous Stasis Changes Neurological: Yes: Oriented Psychiatric: Yes: Oriented Labs: CBC, BMP 08/16/18 06:00 08/16/18 06:00 INR, PTT INR 1.10 (0.83-1.09) H 08/12/18 21:00 Problem List - Problems (1) CKD (chronic kidney disease) Code(s): N18.9 - CHRONIC KIDNEY DISEASE, UNSPECIFIED (2) COPD exacerbation Code(s): J44.1 - CHRONIC OBSTRUCTIVE PULMONARY DISEASE W (ACUTE) EXACERBATION (3) Acute exacerbation of CHF (congestive heart failure) Code(s): I50.9 - HEART FAILURE, UNSPECIFIED Assessment/Plan Current Medications Generic Name Dose Route Start Last Admin Trade Name Freq PRN Reason Stop Dose Admin Albuterol Sulfate 1 amp 08/15/18 10:15 Ventolin 0.083% Nebulizer Soln - NEB Q1H PRN SHORT OF BREATH/WHEEZING Albuterol/Ipratropium 1 amp 08/13/18 02:56 08/15/18 09:12 Duoneb - NEB 1 amp Q6H PRN Administration SHORTNESS OF BREATH Aspirin 81 mg 08/13/18 10:00 08/16/18 09:14 Asa - PO 81 mg DAILY [facility] Administration Budesonide/Formoterol Fumarate 1 puff 08/13/18 10:00 08/16/18 09:14 Symbicort 160/4.5mcg - IH 1 puff BID [facility] Administration Docusate Sodium 100 mg 08/13/18 10:00 08/16/18 09:14 Colace - PO 100 mg DAILY [facility] Administration Enoxaparin Sodium 40 mg 08/16/18 10:00 08/16/18 09:14 Lovenox - SQ 40 mg DAILY [facility] Administration Ferrous Sulfate 325 mg 08/13/18 06:00 08/16/18 05:59 Feosol - PO 325 mg TID [facility] Administration Furosemide 40 mg 08/14/18 14:00 08/16/18 05:59 Lasix Injection - IVPUSH 40 mg BID@0600,1400 [facility] Administration Gabapentin 300 mg 08/13/18 06:00 08/16/18 05:58 Neurontin - PO 300 mg TID [facility] Administration Hydralazine HCl 50 mg 08/16/18 10:38 Apresoline - PO TID [facility] Azithromycin 250 mg/ Dextrose 250 mls @ 250 mls/hr 08/13/18 10:00 08/16/18 09 :50 IVPB 250 mls/hr DAILY [facility] Administration Ceftriaxone Sodium 1 gm/ 50 mls @ 100 mls/hr 08/13/18 10:00 08/16/18 09:13 Dextrose IVPB 100 mls/hr DAILY [facility] Administration Protocol Insulin Aspart 1 vial 08/15/18 22:00 08/16/18 06:00 Novolog Vial Sliding Scale - SQ 8 units Q4HPO [facility] Administration Protocol Insulin Aspart 20 units 08/16/18 07:00 Novolog Mix 70/30 Vial SQ BIDAC [facility] Insulin Detemir 20 units 08/15/18 22:00 08/15/18 22:55 Levemir Vial SQ 20 units HS [facility] Administration Methylprednisolone Sodium Succinate 40 mg 08/13/18 10:00 08/16/18 09:14 Solu-Medrol - IVPUSH 40 mg Q8H-IV [facility] Administration Nifedipine 90 mg 08/13/18 10:00 08/16/18 09:14 Procardia Xl - PO 90 mg DAILY [facility] Administration Rosuvastatin Calcium 5 mg 08/13/18 22:00 08/15/18 22:11 Crestor - PO 5 mg HS [facility] Administration Sodium Zirconium Cyclosilicate 10 gm 08/15/18 10:00 08/15/18 12:00 Lokelma PO 10 gm DAILY [facility] Administration Tamsulosin HCl 0.4 mg 08/13/18 08:30 08/16/18 09:14 Flomax - PO 0.4 mg DAILY@0830 [facility] Administration Impression 1. CKD 2. dyspnea 3. morbid obesity 4. DM 5. HTN 6. likely sleep apnea 7. chest pain 8. hyperkalemia Plan - potassium improving - cont lokelma - cont lasix - will give metolazone as well - monitor renal function closely - monitor urine output - cardio follow up - pt with nephrotic range proteinura
[2018-08-16] MEDS: SODIUM ZIRCONIUM CYCLOSILICATE (LOKELMA) 5 GM PACKET PO SCH (11:52)
[2018-08-16] MEDS: hydrALAZINE HCL 50 MG TABLET (FP) PO SCH ×2 (13:21→22:53)
[2018-08-16] MEDS: INSULIN (NOVOLOG MIX 70/30) 100 UNITS/ML MDV SQ SCH (16:10)
[2018-08-16] MEDS: ALBUTEROL SO4 2.5/IPRATROPIUM 0.5 INH SOL 3 ML VIAL.NEB. NEB PRN (21:10)
[2018-08-16] MEDS ORDERED: traMADol HCL 50 MG TABLET PO ONE (21:54)
[2018-08-16] MEDS: ROSUVASTATIN CA 5 MG TABLET (FP) PO SCH (22:54)
[2018-08-16] MEDS: INSULIN (LEVEMIR) 100 UNITS/ML UNITS SQ SCH (22:56)
--- NOTE | 2018-08-16 23:08 | PN ---
Progress Note, Physician History of Present Illness: Pt still w/ SO - Current Medication List Current Medications: Active Medications Albuterol Sulfate (Ventolin 0.083% Nebulizer Soln -) 1 amp NEB Q1H PRN PRN Reason: SHORT OF BREATH/WHEEZING Albuterol/Ipratropium (Duoneb -) 1 amp NEB Q6H PRN PRN Reason: SHORTNESS OF BREATH Last Admin: 08/16/18 21:10 Dose: 1 amp Aspirin (Asa -) 81 mg PO DAILY [facility] Last Admin: 08/16/18 09:14 Dose: 81 mg Budesonide/Formoterol Fumarate (Symbicort 160/4.5mcg -) 1 puff IH BID [facility] Last Admin: 08/16/18 09:14 Dose: 1 puff Docusate Sodium (Colace -) 100 mg PO DAILY [facility] Last Admin: 08/16/18 09:14 Dose: 100 mg Enoxaparin Sodium (Lovenox -) 40 mg SQ DAILY [facility] Last Admin: 08/16/18 09:14 Dose: 40 mg Ferrous Sulfate (Feosol -) 325 mg PO TID [facility] Last Admin: 08/16/18 22:54 Dose: 325 mg Furosemide (Lasix Injection -) 40 mg IVPUSH BID@0600,1400 [facility] Last Admin: 08/16/18 13:21 Dose: 40 mg Gabapentin (Neurontin -) 300 mg PO TID [facility] Last Admin: 08/16/18 22:54 Dose: 300 mg Hydralazine HCl (Apresoline -) 50 mg PO TID [facility] Last Admin: 08/16/18 22:53 Dose: 50 mg Azithromycin 250 mg/ Dextrose 250 mls @ 250 mls/hr IVPB DAILY [facility] Last Admin: 08/16/18 09:50 Dose: 250 mls/hr Ceftriaxone Sodium 1 gm/ (Dextrose) 50 mls @ 100 mls/hr IVPB DAILY [facility]; Protocol Last Admin: 08/16/18 09:13 Dose: 100 mls/hr Insulin Aspart (Novolog Vial Sliding Scale -) 1 vial SQ Q4HPO [facility]; Protocol Last Admin: 08/16/18 22:56 Dose: 6 units Insulin Aspart (Novolog Mix 70/30 Vial) 20 units SQ BIDAC [facility] Last Admin: 08/16/18 16:10 Dose: 20 units Insulin Detemir (Levemir Vial) 20 units SQ HS [facility] Last Admin: 08/16/18 22:56 Dose: 20 units Methylprednisolone Sodium Succinate (Solu-Medrol -) 40 mg IVPUSH Q8H-IV [facility] Last Admin: 08/16/18 18:58 Dose: 40 mg Metolazone (Zaroxolyn -) 5 mg PO DAILY [facility] Nifedipine (Procardia Xl -) 90 mg PO DAILY [facility] Last Admin: 08/16/18 09:14 Dose: 90 mg Rosuvastatin Calcium (Crestor -) 5 mg PO HS [facility] Last Admin: 08/16/18 22:54 Dose: 5 mg Sodium Zirconium Cyclosilicate (Lokelma) 10 gm PO DAILY [facility] Last Admin: 08/16/18 11:52 Dose: 10 gm Tamsulosin HCl (Flomax -) 0.4 mg PO DAILY@0830 [facility] Last Admin: 08/16/18 09:14 Dose: 0.4 mg - Objective Vital Signs: Vital Signs Temperature 97.5 F L 08/16/18 18:00 Pulse Rate 100 H 08/16/18 18:00 Respiratory Rate 20 08/16/18 18:00 Blood Pressure 140/72 08/16/18 18:00 O2 Sat by Pulse Oximetry (%) 97 08/16/18 22:00 Constitutional: Yes: Well Nourished, Obese Neck: Yes: WNL, Supple Cardiovascular: Yes: WNL, Regular Rate and Rhythm Respiratory: Yes: Diminished Gastrointestinal: Yes: WNL, Normal Bowel Sounds, Soft, Abdomen, Obese Labs: CBC, BMP 08/16/18 06:00 08/16/18 06:00 INR, PTT INR 1.10 (0.83-1.09) H 08/12/18 21:00 Problem List - Problems (1) Diastolic CHF Assessment/Plan: Acute on chronic diastolic heart failure Cont IV lasix Cont diuresos Code(s): I50.30 - UNSPECIFIED DIASTOLIC (CONGESTIVE) HEART FAILURE (2) COPD exacerbation Assessment/Plan: Cont IV sterpoids Cont nebulizers Code(s): J44.1 - CHRONIC OBSTRUCTIVE PULMONARY DISEASE W (ACUTE) EXACERBATION (3) Acute on chronic kidney failure Assessment/Plan: Cont to monitor labs Code(s): N17.9 - ACUTE KIDNEY FAILURE, UNSPECIFIED; N18.9 - CHRONIC KIDNEY DISEASE, UNSPECIFIED (4) Acute on chronic respiratory failure with hypoxia and hypercapnia Code(s): J96.21 - ACUTE AND CHRONIC RESPIRATORY FAILURE WITH HYPOXIA; J96.22 - ACUTE AND CHRONIC RESPIRATORY FAILURE WITH HYPERCAPNIA (5) Diabetes Assessment/Plan: Cont sliding scale w/ coverage Code(s): E11.9 - TYPE 2 DIABETES MELLITUS WITHOUT COMPLICATIONS (6) Hyperlipidemia Assessment/Plan: Cont statin Code(s): E78.5 - HYPERLIPIDEMIA, UNSPECIFIED (7) Hypertension Assessment/Plan: BP stable Cont antihypertensives Code(s): I10 - ESSENTIAL (PRIMARY) HYPERTENSION Qualifiers: Hypertension type: unspecified Qualified Code(s): I10 - Essential (primary ) hypertension (8) Morbid obesity Code(s): E66.01 - MORBID (SEVERE) OBESITY DUE TO EXCESS CALORIES (9) Sleep apnea Code(s): G47.30 - SLEEP APNEA, UNSPECIFIED
[2018-08-17] MEDS: INSULIN SLIDING SCALE (NOVOLOG) 1 VIAL SQ SCH ×6 (01:34→21:22)
[2018-08-17] MEDS: methylPREDNISolone NA SUCC 40 MG/1 ML VIAL IVPUSH SCH ×4 (03:14→23:22)
[2018-08-17] MEDS: GABAPENTIN 300 MG CAPSULE (FP) PO SCH ×3 (06:08→21:12)
[2018-08-17] MEDS: FERROUS SO4 325 MG TABLET (FP) PO SCH ×3 (06:08→21:12)
[2018-08-17] MEDS: hydrALAZINE HCL 50 MG TABLET (FP) PO SCH ×3 (06:08→21:12)
[2018-08-17] MEDS: FUROSEMIDE 40 MG/4 ML INJECTABLE VIAL IVPUSH SCH ×2 (06:10→14:20)
[2018-08-17] MEDS: INSULIN (NOVOLOG MIX 70/30) 100 UNITS/ML MDV SQ SCH ×3 (06:54→17:26)
[2018-08-17 08:09] LABS: ALBUMIN 2.9 g/dl (3.4-5.0); BILIRUBIN,TOTAL 0.6 mg/dL (0.2-1); CALCIUM 8.7 mg/dL (8.5-10.1); CREATININE 2.4 mg/dL (0.55-1.3); TOT PROT 6.6 g/dl (6.4-8.2)
[2018-08-17] MEDS ORDERED: PT OWN MED DRAWER 7, Y5N ONE (08:54)
[2018-08-17] MEDS ORDERED: DEXTROSE 5%-WATER - 50 ML IVPB ONE (08:54)
[2018-08-17] MEDS ORDERED: cefTRIAXone SODIUM 1 GM VIAL ONE (08:54)
[2018-08-17] MEDS: CEFTRIAXONE 1 GM in DEXTROSE 5%-WATER - 50 ML IVPB SCH (09:04)
[2018-08-17] MEDS: ENOXAPARIN NA (PORCINE) 40 MG/0.4 ML DISP.SYRIN SQ SCH (09:04)
[2018-08-17] MEDS: ASPIRIN 81 MG CHEWABLE TABLETS PO SCH (09:04)
[2018-08-17] MEDS: METOLAZONE 5 MG TABLET PO SCH (09:05)
[2018-08-17] MEDS: NIFEdipine E.R. 90 MG TABLET (FP) PO SCH (09:05)
[2018-08-17] MEDS: TAMSULOSIN HCL 0.4 MG CAP PO SCH (09:05)
[2018-08-17] MEDS: DOCUSATE SODIUM 100 MG CAPSULE (FP) PO SCH (09:05)
[2018-08-17] MEDS: BUDESONIDE/FORMETEROL FUMARATE 160/4.5 mcg INHALER IH SCH ×2 (09:07→21:13)
[2018-08-17] MEDS: AZITHROMYCIN IVPB 250 MG in DEXTROSE 5%-WATER - 250 ML IVPB SCH (09:46)
--- NOTE | 2018-08-17 10:08 | PN ---
Progress Note, Physician History of Present Illness: Pt seen and examined at bedside. He is awake and alert. He feels that his breathing is improved. He feels that edema is mildly improved. - Current Medication List Current Medications: Active Medications Albuterol Sulfate (Ventolin 0.083% Nebulizer Soln -) 1 amp NEB Q1H PRN PRN Reason: SHORT OF BREATH/WHEEZING Albuterol/Ipratropium (Duoneb -) 1 amp NEB Q6H PRN PRN Reason: SHORTNESS OF BREATH Last Admin: 08/16/18 21:10 Dose: 1 amp Aspirin (Asa -) 81 mg PO DAILY [facility] Last Admin: 08/17/18 09:04 Dose: 81 mg Budesonide/Formoterol Fumarate (Symbicort 160/4.5mcg -) 1 puff IH BID [facility] Last Admin: 08/17/18 09:07 Dose: 1 puff Docusate Sodium (Colace -) 100 mg PO DAILY [facility] Last Admin: 08/17/18 09:05 Dose: 100 mg Enoxaparin Sodium (Lovenox -) 40 mg SQ DAILY [facility] Last Admin: 08/17/18 09:04 Dose: 40 mg Ferrous Sulfate (Feosol -) 325 mg PO TID [facility] Last Admin: 08/17/18 06:08 Dose: 325 mg Furosemide (Lasix Injection -) 40 mg IVPUSH BID@0600,1400 [facility] Last Admin: 08/17/18 06:10 Dose: 40 mg Gabapentin (Neurontin -) 300 mg PO TID [facility] Last Admin: 08/17/18 06:08 Dose: 300 mg Hydralazine HCl (Apresoline -) 50 mg PO TID [facility] Last Admin: 08/17/18 06:08 Dose: 50 mg Azithromycin 250 mg/ Dextrose 250 mls @ 250 mls/hr IVPB DAILY [facility] Last Admin: 08/17/18 09:46 Dose: 250 mls/hr Ceftriaxone Sodium 1 gm/ (Dextrose) 50 mls @ 100 mls/hr IVPB DAILY [facility]; Protocol Last Admin: 08/17/18 09:04 Dose: 100 mls/hr Insulin Aspart (Novolog Vial Sliding Scale -) 1 vial SQ Q4HPO [facility]; Protocol Last Admin: 08/17/18 06:10 Dose: 6 units Insulin Aspart (Novolog Mix 70/30 Vial) 20 units SQ BIDAC [facility] Last Admin: 08/17/18 06:54 Dose: 20 units Insulin Detemir (Levemir Vial) 20 units SQ HS [facility] Last Admin: 08/16/18 22:56 Dose: 20 units Methylprednisolone Sodium Succinate (Solu-Medrol -) 40 mg IVPUSH Q8H-IV [facility] Last Admin: 08/17/18 03:14 Dose: 40 mg Metolazone (Zaroxolyn -) 5 mg PO DAILY [facility] Last Admin: 08/17/18 09:05 Dose: 5 mg Nifedipine (Procardia Xl -) 90 mg PO DAILY [facility] Last Admin: 08/17/18 09:05 Dose: 90 mg Rosuvastatin Calcium (Crestor -) 5 mg PO HS [facility] Last Admin: 08/16/18 22:54 Dose: 5 mg Sodium Zirconium Cyclosilicate (Lokelma) 10 gm PO DAILY [facility] Last Admin: 08/16/18 11:52 Dose: 10 gm Tamsulosin HCl (Flomax -) 0.4 mg PO DAILY@0830 [facility] Last Admin: 08/17/18 09:05 Dose: 0.4 mg - Objective Vital Signs: Vital Signs Temperature 97.7 F 08/17/18 06:00 Pulse Rate 82 08/17/18 06:00 Respiratory Rate 20 08/17/18 06:00 Blood Pressure 151/87 08/17/18 06:00 O2 Sat by Pulse Oximetry (%) 96 08/17/18 04:30 Constitutional: Yes: Calm Eyes: Yes: Conjunctiva Clear HENT: Yes: Atraumatic Neck: Yes: Supple Cardiovascular: Yes: S1, S2 Respiratory: Yes: On Nasal O2 Gastrointestinal: Yes: Soft, Abdomen, Obese Genitourinary: Yes: Ibrahim Present Musculoskeletal: Yes: WNL Edema: Yes Edema: LLE: 2+, RLE: 2+ Neurological: Yes: Oriented Psychiatric: Yes: Oriented Labs: CBC, BMP 08/16/18 06:00 08/17/18 05:30 INR, PTT INR 1.10 (0.83-1.09) H 08/12/18 21:00 Problem List - Problems (1) CKD (chronic kidney disease) Code(s): N18.9 - CHRONIC KIDNEY DISEASE, UNSPECIFIED (2) COPD exacerbation Code(s): J44.1 - CHRONIC OBSTRUCTIVE PULMONARY DISEASE W (ACUTE) EXACERBATION (3) Acute exacerbation of CHF (congestive heart failure) Code(s): I50.9 - HEART FAILURE, UNSPECIFIED Assessment/Plan Current Medications Generic Name Dose Route Start Last Admin Trade Name Freq PRN Reason Stop Dose Admin Albuterol Sulfate 1 amp 08/15/18 10:15 Ventolin 0.083% Nebulizer Soln - NEB Q1H PRN SHORT OF BREATH/WHEEZING Albuterol/Ipratropium 1 amp 08/13/18 02:56 08/16/18 21:10 Duoneb - NEB 1 amp Q6H PRN Administration SHORTNESS OF BREATH Aspirin 81 mg 08/13/18 10:00 08/17/18 09:04 Asa - PO 81 mg DAILY [facility] Administration Budesonide/Formoterol Fumarate 1 puff 08/13/18 10:00 08/17/18 09:07 Symbicort 160/4.5mcg - IH 1 puff BID [facility] Administration Docusate Sodium 100 mg 08/13/18 10:00 08/17/18 09:05 Colace - PO 100 mg DAILY [facility] Administration Enoxaparin Sodium 40 mg 08/16/18 10:00 08/17/18 09:04 Lovenox - SQ 40 mg DAILY [facility] Administration Ferrous Sulfate 325 mg 08/13/18 06:00 08/17/18 06:08 Feosol - PO 325 mg TID [facility] Administration Furosemide 40 mg 08/14/18 14:00 08/17/18 06:10 Lasix Injection - IVPUSH 40 mg BID@0600,1400 [facility] Administration Gabapentin 300 mg 08/13/18 06:00 08/17/18 06:08 Neurontin - PO 300 mg TID [facility] Administration Hydralazine HCl 50 mg 08/16/18 10:38 08/17/18 06:08 Apresoline - PO 50 mg TID [facility] Administration Azithromycin 250 mg/ Dextrose 250 mls @ 250 mls/hr 08/13/18 10:00 08/17/18 09 :46 IVPB 250 mls/hr DAILY [facility] Administration Ceftriaxone Sodium 1 gm/ 50 mls @ 100 mls/hr 08/13/18 10:00 08/17/18 09:04 Dextrose IVPB 100 mls/hr DAILY [facility] Administration Protocol Insulin Aspart 1 vial 08/15/18 22:00 08/17/18 06:10 Novolog Vial Sliding Scale - SQ 6 units Q4HPO [facility] Administration Protocol Insulin Aspart 20 units 08/16/18 07:00 08/17/18 06:54 Novolog Mix 70/30 Vial SQ 20 units BIDAC [facility] Administration Insulin Detemir 20 units 08/15/18 22:00 08/16/18 22:56 Levemir Vial SQ 20 units HS [facility] Administration Methylprednisolone Sodium Succinate 40 mg 08/13/18 10:00 08/17/18 03:14 Solu-Medrol - IVPUSH 40 mg Q8H-IV [facility] Administration Metolazone 5 mg 08/17/18 10:00 08/17/18 09:05 Zaroxolyn - PO 5 mg DAILY [facility] Administration Nifedipine 90 mg 08/13/18 10:00 08/17/18 09:05 Procardia Xl - PO 90 mg DAILY [facility] Administration Rosuvastatin Calcium 5 mg 08/13/18 22:00 08/16/18 22:54 Crestor - PO 5 mg HS [facility] Administration Sodium Zirconium Cyclosilicate 10 gm 08/15/18 10:00 08/16/18 11:52 Lokelma PO 10 gm DAILY [facility] Administration Tamsulosin HCl 0.4 mg 08/13/18 08:30 08/17/18 09:05 Flomax - PO 0.4 mg DAILY@0830 [facility] Administration Impression 1. CKD 2. dyspnea 3. morbid obesity 4. DM 5. HTN 6. likely sleep apnea 7. chest pain 8. hyperkalemia Plan - cont lasix, will increase dose to 60 mg iv bid - cont metolozone - hold lokelma tomorrow until labs reviewed - potassium improved - cardio follow up - recommend weight loss
[2018-08-17] MEDS: SODIUM ZIRCONIUM CYCLOSILICATE (LOKELMA) 5 GM PACKET PO SCH (10:52)
--- NOTE | 2018-08-17 11:00 | PN ---
Progress Note, Physician History of Present Illness: PULMONARY ALERT,FEELING BETTETR COMFORTABLE,LAYING IB BED,+ OCC COUGH HUNT/YELLOW SPUTUM - Current Medication List Current Medications: Active Medications Albuterol Sulfate (Ventolin 0.083% Nebulizer Soln -) 1 amp NEB Q1H PRN PRN Reason: SHORT OF BREATH/WHEEZING Albuterol/Ipratropium (Duoneb -) 1 amp NEB Q6H PRN PRN Reason: SHORTNESS OF BREATH Last Admin: 08/16/18 21:10 Dose: 1 amp Aspirin (Asa -) 81 mg PO DAILY [facility] Last Admin: 08/17/18 09:04 Dose: 81 mg Budesonide/Formoterol Fumarate (Symbicort 160/4.5mcg -) 1 puff IH BID [facility] Last Admin: 08/17/18 09:07 Dose: 1 puff Docusate Sodium (Colace -) 100 mg PO DAILY [facility] Last Admin: 08/17/18 09:05 Dose: 100 mg Enoxaparin Sodium (Lovenox -) 40 mg SQ DAILY [facility] Last Admin: 08/17/18 09:04 Dose: 40 mg Ferrous Sulfate (Feosol -) 325 mg PO TID [facility] Last Admin: 08/17/18 06:08 Dose: 325 mg Furosemide (Lasix Injection -) 60 mg IVPUSH BID@0600,1400 [facility] Gabapentin (Neurontin -) 300 mg PO TID [facility] Last Admin: 08/17/18 06:08 Dose: 300 mg Hydralazine HCl (Apresoline -) 50 mg PO TID [facility] Last Admin: 08/17/18 06:08 Dose: 50 mg Azithromycin 250 mg/ Dextrose 250 mls @ 250 mls/hr IVPB DAILY [facility] Last Admin: 08/17/18 09:46 Dose: 250 mls/hr Ceftriaxone Sodium 1 gm/ (Dextrose) 50 mls @ 100 mls/hr IVPB DAILY [facility]; Protocol Last Admin: 08/17/18 09:04 Dose: 100 mls/hr Insulin Aspart (Novolog Vial Sliding Scale -) 1 vial SQ Q4HPO [facility]; Protocol Last Admin: 08/17/18 06:10 Dose: 6 units Insulin Aspart (Novolog Mix 70/30 Vial) 20 units SQ BIDAC [facility] Last Admin: 08/17/18 06:54 Dose: 20 units Insulin Detemir (Levemir Vial) 20 units SQ HS [facility] Last Admin: 08/16/18 22:56 Dose: 20 units Methylprednisolone Sodium Succinate (Solu-Medrol -) 40 mg IVPUSH Q8H-IV [facility] Last Admin: 08/17/18 03:14 Dose: 40 mg Metolazone (Zaroxolyn -) 5 mg PO DAILY [facility] Last Admin: 08/17/18 09:05 Dose: 5 mg Nifedipine (Procardia Xl -) 90 mg PO DAILY [facility] Last Admin: 08/17/18 09:05 Dose: 90 mg Rosuvastatin Calcium (Crestor -) 5 mg PO HS [facility] Last Admin: 08/16/18 22:54 Dose: 5 mg Sodium Zirconium Cyclosilicate (Lokelma) 10 gm PO DAILY [facility] Last Admin: 08/17/18 10:52 Dose: 10 gm Tamsulosin HCl (Flomax -) 0.4 mg PO DAILY@0830 [facility] Last Admin: 08/17/18 09:05 Dose: 0.4 mg - Objective Vital Signs: Vital Signs Temperature 97.7 F 08/17/18 10:00 Pulse Rate 92 H 08/17/18 10:00 Respiratory Rate 20 08/17/18 10:00 Blood Pressure 160/80 08/17/18 10:00 O2 Sat by Pulse Oximetry (%) 96 08/17/18 10:00 Constitutional: Yes: Well Nourished, Obese Eyes: Yes: WNL HENT: Yes: WNL Neck: Yes: WNL Cardiovascular: Yes: Regular Rate and Rhythm, S1, S2 Respiratory: Yes: Diminished Gastrointestinal: Yes: Soft, Abdomen, Obese Extremities: Yes: WNL Edema: Yes Labs: CBC, BMP 08/17/18 05:30 INR, PTT Problem List - Problems (1) CKD (chronic kidney disease) Code(s): N18.9 - CHRONIC KIDNEY DISEASE, UNSPECIFIED (2) COPD exacerbation Code(s): J44.1 - CHRONIC OBSTRUCTIVE PULMONARY DISEASE W (ACUTE) EXACERBATION (3) Acute exacerbation of CHF (congestive heart failure) Code(s): I50.9 - HEART FAILURE, UNSPECIFIED (4) Acute on chronic respiratory failure with hypoxia and hypercapnia Code(s): J96.21 - ACUTE AND CHRONIC RESPIRATORY FAILURE WITH HYPOXIA; J96.22 - ACUTE AND CHRONIC RESPIRATORY FAILURE WITH HYPERCAPNIA (5) Acute renal failure Code(s): N17.9 - ACUTE KIDNEY FAILURE, UNSPECIFIED (6) Diabetes Code(s): E11.9 - TYPE 2 DIABETES MELLITUS WITHOUT COMPLICATIONS (7) Hypertension Code(s): I10 - ESSENTIAL (PRIMARY) HYPERTENSION Qualifiers: Hypertension type: unspecified Qualified Code(s): I10 - Essential (primary ) hypertension (8) Morbid exogenous obesity Code(s): E66.01 - MORBID (SEVERE) OBESITY DUE TO EXCESS CALORIES (9) Morbid obesity Code(s): E66.01 - MORBID (SEVERE) OBESITY DUE TO EXCESS CALORIES (10) Obesity hypoventilation syndrome Code(s): E66.2 - MORBID (SEVERE) OBESITY WITH ALVEOLAR HYPOVENTILATION (11) Pulmonary HTN Code(s): I27.2 - OTHER SECONDARY PULMONARY HYPERTENSION * DO NOT USE * (12) Respiratory distress Code(s): R06.00 - DYSPNEA, UNSPECIFIED (13) Shortness of breath Code(s): R06.02 - SHORTNESS OF BREATH (14) Sleep apnea Code(s): G47.30 - SLEEP APNEA, UNSPECIFIED (15) Acute on chronic kidney failure Code(s): N17.9 - ACUTE KIDNEY FAILURE, UNSPECIFIED; N18.9 - CHRONIC KIDNEY DISEASE, UNSPECIFIED Assessment/Plan IMP ACUTE ON CHRONIC HYPOXEMIC RESPIRATORY FAILURE IMPROVING CHRONIC HYPOXEMIC/HYPERCAPNEIC RESPIRATORY FAILURE COPD EXACERBATION IMPROVING DIASTOLIC HF CHEST PAIN PULMONARY HTN COR PULMONALE OBESITY-HYPOVENTILATION SYNDROME ACUTE ON CHRONIC KIDNEY DISEASE HTN DM TATI PLAN NIPPV TO HELP REDUCE WORK OF BREATHING O2 TO MAINTAIN O2 SAT 90% OR GREATER MEDROL TAPER BIPAP AT NIGHT AND PRN ABX INHALED BRONCHODILATORS LASIX DAILY WT DVT PROPHYLAXIS MONITOR LYTES,RENAL FUNCTION STRICT I+OS F/U ABGS DR SALVADOR Problem List - Problems (1) CKD (chronic kidney disease) Code(s): N18.9 - CHRONIC KIDNEY DISEASE, UNSPECIFIED (2) COPD exacerbation Code(s): J44.1 - CHRONIC OBSTRUCTIVE PULMONARY DISEASE W (ACUTE) EXACERBATION (3) Acute exacerbation of CHF (congestive heart failure) Code(s): I50.9 - HEART FAILURE, UNSPECIFIED (4) Acute on chronic respiratory failure with hypoxia and hypercapnia Code(s): J96.21 - ACUTE AND CHRONIC RESPIRATORY FAILURE WITH HYPOXIA; J96.22 - ACUTE AND CHRONIC RESPIRATORY FAILURE WITH HYPERCAPNIA (5) Acute renal failure Code(s): N17.9 - ACUTE KIDNEY FAILURE, UNSPECIFIED (6) Diabetes Code(s): E11.9 - TYPE 2 DIABETES MELLITUS WITHOUT COMPLICATIONS (7) Hypertension Code(s): I10 - ESSENTIAL (PRIMARY) HYPERTENSION Qualifiers: Hypertension type: unspecified Qualified Code(s): I10 - Essential (primary ) hypertension (8) Morbid exogenous obesity Code(s): E66.01 - MORBID (SEVERE) OBESITY DUE TO EXCESS CALORIES (9) Morbid obesity Code(s): E66.01 - MORBID (SEVERE) OBESITY DUE TO EXCESS CALORIES (10) Obesity hypoventilation syndrome Code(s): E66.2 - MORBID (SEVERE) OBESITY WITH ALVEOLAR HYPOVENTILATION (11) Pulmonary HTN Code(s): I27.2 - OTHER SECONDARY PULMONARY HYPERTENSION * DO NOT USE * (12) Respiratory distress Code(s): R06.00 - DYSPNEA, UNSPECIFIED (13) Shortness of breath Code(s): R06.02 - SHORTNESS OF BREATH (14) Sleep apnea Code(s): G47.30 - SLEEP APNEA, UNSPECIFIED (15) Acute on chronic kidney failure Code(s): N17.9 - ACUTE KIDNEY FAILURE, UNSPECIFIED; N18.9 - CHRONIC KIDNEY DISEASE, UNSPECIFIED
[2018-08-17] MEDS: ROSUVASTATIN CA 5 MG TABLET (FP) PO SCH (21:12)
[2018-08-17] MEDS: INSULIN (LEVEMIR) 100 UNITS/ML UNITS SQ SCH (21:22)
--- NOTE | 2018-08-17 21:41 | PN ---
Progress Note, Physician History of Present Illness: No new complaint - Current Medication List Current Medications: Active Medications Albuterol Sulfate (Ventolin 0.083% Nebulizer Soln -) 1 amp NEB Q1H PRN PRN Reason: SHORT OF BREATH/WHEEZING Albuterol/Ipratropium (Duoneb -) 1 amp NEB Q6H PRN PRN Reason: SHORTNESS OF BREATH Last Admin: 08/16/18 21:10 Dose: 1 amp Aspirin (Asa -) 81 mg PO DAILY [facility] Last Admin: 08/17/18 09:04 Dose: 81 mg Budesonide/Formoterol Fumarate (Symbicort 160/4.5mcg -) 1 puff IH BID [facility] Last Admin: 08/17/18 21:13 Dose: 1 puff Docusate Sodium (Colace -) 100 mg PO DAILY [facility] Last Admin: 08/17/18 09:05 Dose: 100 mg Enoxaparin Sodium (Lovenox -) 40 mg SQ DAILY [facility] Last Admin: 08/17/18 09:04 Dose: 40 mg Ferrous Sulfate (Feosol -) 325 mg PO TID [facility] Last Admin: 08/17/18 21:12 Dose: 325 mg Furosemide (Lasix Injection -) 60 mg IVPUSH BID@0600,1400 [facility] Last Admin: 08/17/18 14:20 Dose: 60 mg Gabapentin (Neurontin -) 300 mg PO TID [facility] Last Admin: 08/17/18 21:12 Dose: 300 mg Hydralazine HCl (Apresoline -) 50 mg PO TID [facility] Last Admin: 08/17/18 21:12 Dose: 50 mg Azithromycin 250 mg/ Dextrose 250 mls @ 250 mls/hr IVPB DAILY [facility] Last Admin: 08/17/18 09:46 Dose: 250 mls/hr Ceftriaxone Sodium 1 gm/ (Dextrose) 50 mls @ 100 mls/hr IVPB DAILY [facility]; Protocol Last Admin: 08/17/18 09:04 Dose: 100 mls/hr Insulin Aspart (Novolog Vial Sliding Scale -) 1 vial SQ Q4HPO [facility]; Protocol Last Admin: 08/17/18 21:22 Dose: 8 units Insulin Aspart (Novolog Mix 70/30 Vial) 20 units SQ BIDAC [facility] Last Admin: 08/17/18 17:26 Dose: 20 units Insulin Detemir (Levemir Vial) 20 units SQ HS [facility] Last Admin: 08/17/18 21:22 Dose: 20 units Methylprednisolone Sodium Succinate (Solu-Medrol -) 40 mg IVPUSH Q12H [facility] Last Admin: 08/17/18 12:01 Dose: 40 mg Metolazone (Zaroxolyn -) 5 mg PO DAILY [facility] Last Admin: 08/17/18 09:05 Dose: 5 mg Nifedipine (Procardia Xl -) 90 mg PO DAILY [facility] Last Admin: 08/17/18 09:05 Dose: 90 mg Rosuvastatin Calcium (Crestor -) 5 mg PO HS [facility] Last Admin: 08/17/18 21:12 Dose: 5 mg Sodium Zirconium Cyclosilicate (Lokelma) 10 gm PO DAILY [facility] Last Admin: 08/17/18 10:52 Dose: 10 gm Tamsulosin HCl (Flomax -) 0.4 mg PO DAILY@0830 [facility] Last Admin: 08/17/18 09:05 Dose: 0.4 mg - Objective Vital Signs: Vital Signs Temperature 98.2 F 08/17/18 20:57 Pulse Rate 88 08/17/18 20:57 Respiratory Rate 20 08/17/18 20:57 Blood Pressure 165/86 08/17/18 20:57 O2 Sat by Pulse Oximetry (%) 98 08/17/18 21:08 Constitutional: Yes: Obese Neck: Yes: WNL, Supple Cardiovascular: Yes: WNL, Regular Rate and Rhythm Respiratory: Yes: Diminished Gastrointestinal: Yes: WNL, Normal Bowel Sounds, Soft, Abdomen, Obese Labs: CBC, BMP 08/16/18 06:00 08/17/18 05:30 INR, PTT INR 1.10 (0.83-1.09) H 08/12/18 21:00 Problem List - Problems (1) Diastolic CHF Assessment/Plan: Acute on chronic diastolic heart failure Cont IV lasix Cont diuresis Code(s): I50.30 - UNSPECIFIED DIASTOLIC (CONGESTIVE) HEART FAILURE (2) COPD exacerbation Assessment/Plan: Cont IV sterpoids Cont nebulizers Code(s): J44.1 - CHRONIC OBSTRUCTIVE PULMONARY DISEASE W (ACUTE) EXACERBATION (3) Acute on chronic kidney failure Assessment/Plan: Cont to monitor labs Code(s): N17.9 - ACUTE KIDNEY FAILURE, UNSPECIFIED; N18.9 - CHRONIC KIDNEY DISEASE, UNSPECIFIED (4) Acute on chronic respiratory failure with hypoxia and hypercapnia Code(s): J96.21 - ACUTE AND CHRONIC RESPIRATORY FAILURE WITH HYPOXIA; J96.22 - ACUTE AND CHRONIC RESPIRATORY FAILURE WITH HYPERCAPNIA (5) Diabetes Assessment/Plan: Cont sliding scale w/ coverage Code(s): E11.9 - TYPE 2 DIABETES MELLITUS WITHOUT COMPLICATIONS (6) Hyperlipidemia Assessment/Plan: Cont statin Code(s): E78.5 - HYPERLIPIDEMIA, UNSPECIFIED (7) Hypertension Assessment/Plan: BP stable Cont antihypertensives Code(s): I10 - ESSENTIAL (PRIMARY) HYPERTENSION Qualifiers: Hypertension type: unspecified Qualified Code(s): I10 - Essential (primary ) hypertension (8) Morbid obesity Code(s): E66.01 - MORBID (SEVERE) OBESITY DUE TO EXCESS CALORIES (9) Sleep apnea Code(s): G47.30 - SLEEP APNEA, UNSPECIFIED
--- NOTE | 2018-08-17 23:05 | PN ---
Progress Note, Physician Chief Complaint: Pt A&OX3; sitting up at bedside; easily dyspneic; frequent cough. History of Present Illness: The patient is a 47-year-old black male with a past medical history significant for morbid obesity, DM, HTN, HLD, COPD (on home O2, recently increased from 2L to 4L by PCP) presents to the emergency department with chest pain, SOB and a cough. The patient presents with shortness of breath, chest pain, and productive cough with greyish-white sputum production, with mild hemoptysis. The patient reports the chest pain is sharp and pleuritic in quality, with a severity of 6/10. The patient reports the pain presented while at rest, now aggravated with exertion. The patient reports hes been noncompliant with breathing treatments secondary to problems with the machine. Denies recent travel. Denies hx of blood clots. Patient reports a history of lymphedema, with increased leg and scrotal swelling. The patient reports a recent medication change by his senior clinical data analyst; however, he is unsure which medication. Allergies: NKDA PCP: Dr. Sukumar Ortiz. - Current Medication List Current Medications: Active Medications Albuterol Sulfate (Ventolin 0.083% Nebulizer Soln -) 1 amp NEB Q1H PRN PRN Reason: SHORT OF BREATH/WHEEZING Albuterol/Ipratropium (Duoneb -) 1 amp NEB Q6H PRN PRN Reason: SHORTNESS OF BREATH Last Admin: 08/16/18 21:10 Dose: 1 amp Aspirin (Asa -) 81 mg PO DAILY [facility] Last Admin: 08/17/18 09:04 Dose: 81 mg Budesonide/Formoterol Fumarate (Symbicort 160/4.5mcg -) 1 puff IH BID [facility] Last Admin: 08/17/18 21:13 Dose: 1 puff Docusate Sodium (Colace -) 100 mg PO DAILY [facility] Last Admin: 08/17/18 09:05 Dose: 100 mg Enoxaparin Sodium (Lovenox -) 40 mg SQ DAILY [facility] Last Admin: 08/17/18 09:04 Dose: 40 mg Ferrous Sulfate (Feosol -) 325 mg PO TID [facility] Last Admin: 08/17/18 21:12 Dose: 325 mg Furosemide (Lasix Injection -) 60 mg IVPUSH BID@0600,1400 [facility] Last Admin: 08/17/18 14:20 Dose: 60 mg Gabapentin (Neurontin -) 300 mg PO TID [facility] Last Admin: 08/17/18 21:12 Dose: 300 mg Hydralazine HCl (Apresoline -) 50 mg PO TID [facility] Last Admin: 08/17/18 21:12 Dose: 50 mg Azithromycin 250 mg/ Dextrose 250 mls @ 250 mls/hr IVPB DAILY [facility] Last Admin: 08/17/18 09:46 Dose: 250 mls/hr Ceftriaxone Sodium 1 gm/ (Dextrose) 50 mls @ 100 mls/hr IVPB DAILY [facility]; Protocol Last Admin: 08/17/18 09:04 Dose: 100 mls/hr Insulin Aspart (Novolog Vial Sliding Scale -) 1 vial SQ Q4HPO [facility]; Protocol Last Admin: 08/17/18 21:22 Dose: 8 units Insulin Aspart (Novolog Mix 70/30 Vial) 20 units SQ BIDAC [facility] Last Admin: 08/17/18 17:26 Dose: 20 units Insulin Detemir (Levemir Vial) 20 units SQ HS [facility] Last Admin: 08/17/18 21:22 Dose: 20 units Methylprednisolone Sodium Succinate (Solu-Medrol -) 40 mg IVPUSH Q12H [facility] Last Admin: 08/17/18 12:01 Dose: 40 mg Metolazone (Zaroxolyn -) 5 mg PO DAILY [facility] Last Admin: 08/17/18 09:05 Dose: 5 mg Nifedipine (Procardia Xl -) 90 mg PO DAILY [facility] Last Admin: 08/17/18 09:05 Dose: 90 mg Rosuvastatin Calcium (Crestor -) 5 mg PO [facility] Last Admin: 08/17/18 21:12 Dose: 5 mg Sodium Zirconium Cyclosilicate (Lokelma) 10 gm PO DAILY [facility] Last Admin: 08/17/18 10:52 Dose: 10 gm Tamsulosin HCl (Flomax -) 0.4 mg PO DAILY@0830 [facility] Last Admin: 08/17/18 09:05 Dose: 0.4 mg - Objective Vital Signs: Vital Signs Temperature 98.2 F 08/17/18 20:57 Pulse Rate 88 08/17/18 20:57 Respiratory Rate 20 08/17/18 20:57 Blood Pressure 165/86 08/17/18 20:57 O2 Sat by Pulse Oximetry (%) 98 08/17/18 21:08 Constitutional: Yes: Calm, Obese Eyes: Yes: WNL HENT: Yes: WNL Neck: Yes: WNL Cardiovascular: Yes: Regular Rate and Rhythm, S1, S2, S4 Respiratory: Yes: SOB on Exertion, Tachypnea Gastrointestinal: Yes: Soft, Abdomen, Obese ...Rectal Exam: Yes: Deferred Genitourinary: Yes: Scrotal Edema (massive edema). No: Anuria Musculoskeletal: Yes: Joint Stiffness, Joint Swelling, Muscle Weakness Extremities: Yes: Cool Edema: Yes Edema: LLE: Trace (lymphedema), RLE: Trace Peripheral Pulses WNL: Yes Integumentary: Yes: Venous Stasis Changes Neurological: Yes: Alert, Oriented, Unsteady Gait, Weakness Psychiatric: Yes: Alert, Oriented Labs: CBC, BMP 08/16/18 06:00 08/17/18 05:30 INR, PTT INR 1.10 (0.83-1.09) H 08/12/18 21:00 Abnormal Lab Results 08/17/18 05:30 Anion Gap 7 L BUN 70 H Creatinine 2.4 H Random Glucose 237 H AST 14 L Albumin 2.9 L - ....Imaging Chest X-ray: Image Reviewed EKG: Image Reviewed Other: Image Reviewed Problem List - Problems (1) Acute on chronic kidney failure Assessment/Plan: On fruosemide and metolazone. f/u with senior clinical data analyst. Code(s): N17.9 - ACUTE KIDNEY FAILURE, UNSPECIFIED; N18.9 - CHRONIC KIDNEY DISEASE, UNSPECIFIED (2) COPD exacerbation Code(s): J44.1 - CHRONIC OBSTRUCTIVE PULMONARY DISEASE W (ACUTE) EXACERBATION (3) Acute on chronic respiratory failure with hypoxia and hypercapnia Assessment/Plan: Steroids, bronchodilators, O2, antibiotics per physician advisor. Code(s): J96.21 - ACUTE AND CHRONIC RESPIRATORY FAILURE WITH HYPOXIA; J96.22 - ACUTE AND CHRONIC RESPIRATORY FAILURE WITH HYPERCAPNIA (4) Diastolic CHF Assessment/Plan: On nifedipine XL, hydrlazine, furosemdie, and metolazone. ECHO: normal LVEF: abnormal diastolic compliance; RV dilatation and reduced RVEF ; evidence of fluid overload (flattened ventricular septum). Code(s): I50.30 - UNSPECIFIED DIASTOLIC (CONGESTIVE) HEART FAILURE (5) Renal insufficiency Code(s): N28.9 - DISORDER OF KIDNEY AND URETER, UNSPECIFIED (6) Respiratory distress Code(s): R06.00 - DYSPNEA, UNSPECIFIED (7) Sleep apnea Code(s): G47.30 - SLEEP APNEA, UNSPECIFIED (8) Morbid obesity Code(s): E66.01 - MORBID (SEVERE) OBESITY DUE TO EXCESS CALORIES (9) Aortic root dilatation Assessment/Plan: Mild dilatation by ECHO this visit. F/u prior studies for comparison. CTA problematic due to renal dysfunction. Code(s): I77.810 - THORACIC AORTIC ECTASIA
[2018-08-18] MEDS: FERROUS SO4 325 MG TABLET (FP) PO SCH ×3 (06:19→22:04)
[2018-08-18] MEDS: hydrALAZINE HCL 50 MG TABLET (FP) PO SCH ×3 (06:19→22:04)
[2018-08-18] MEDS: GABAPENTIN 300 MG CAPSULE (FP) PO SCH ×3 (06:20→22:04)
[2018-08-18] MEDS: INSULIN (NOVOLOG MIX 70/30) 100 UNITS/ML MDV SQ SCH ×2 (06:22→17:17)
[2018-08-18] MEDS: INSULIN SLIDING SCALE (NOVOLOG) 1 VIAL SQ SCH ×5 (06:23→22:05)
[2018-08-18] MEDS: FUROSEMIDE 40 MG/4 ML INJECTABLE VIAL IVPUSH SCH ×2 (06:23→13:34)
[2018-08-18 08:24] LABS: ALBUMIN 2.9 g/dl (3.4-5.0); BILIRUBIN,TOTAL 0.6 mg/dL (0.2-1); CALCIUM 8.3 mg/dL (8.5-10.1); CREATININE 2.3 mg/dL (0.55-1.3); TOT PROT 6.6 g/dl (6.4-8.2)
[2018-08-18] MEDS ORDERED: cefTRIAXone SODIUM 1 GM VIAL ONE (09:14)
[2018-08-18] MEDS ORDERED: DEXTROSE 5%-WATER - 50 ML IVPB ONE (09:15)
[2018-08-18] MEDS: DOCUSATE SODIUM 100 MG CAPSULE (FP) PO SCH (09:25)
[2018-08-18] MEDS: ENOXAPARIN NA (PORCINE) 40 MG/0.4 ML DISP.SYRIN SQ SCH (09:25)
[2018-08-18] MEDS: TAMSULOSIN HCL 0.4 MG CAP PO SCH (09:25)
[2018-08-18] MEDS: ASPIRIN 81 MG CHEWABLE TABLETS PO SCH (09:25)
[2018-08-18] MEDS: CEFTRIAXONE 1 GM in DEXTROSE 5%-WATER - 50 ML IVPB SCH (09:26)
[2018-08-18] MEDS: NIFEdipine E.R. 90 MG TABLET (FP) PO SCH (09:26)
[2018-08-18] MEDS: METOLAZONE 5 MG TABLET PO SCH (09:26)
[2018-08-18] MEDS: BUDESONIDE/FORMETEROL FUMARATE 160/4.5 mcg INHALER IH SCH ×2 (09:40→22:07)
[2018-08-18] MEDS: AZITHROMYCIN IVPB 250 MG in DEXTROSE 5%-WATER - 250 ML IVPB SCH (09:44)
--- NOTE | 2018-08-18 10:08 | PN ---
Progress Note, Physician Chief Complaint: Pt A&OX3; OOB in chair; less dyspneic; still with frequent cough. History of Present Illness: The patient is a 47-year-old black male with a past medical history significant for morbid obesity, DM, HTN, HLD, COPD (on home O2, recently increased from 2L to 4L by PCP) presents to the emergency department with chest pain, SOB and a cough. The patient presents with shortness of breath, chest pain, and productive cough with greyish-white sputum production, with mild hemoptysis. The patient reports the chest pain is sharp and pleuritic in quality, with a severity of 6/10. The patient reports the pain presented while at rest, now aggravated with exertion. The patient reports hes been noncompliant with breathing treatments secondary to problems with the machine. Denies recent travel. Denies hx of blood clots. Patient reports a history of lymphedema, with increased leg and scrotal swelling. The patient reports a recent medication change by his gut dropper; however, he is unsure which medication. Allergies: NKDA PCP: Dr. Sukumar Ortiz. - Current Medication List Current Medications: Active Medications Albuterol Sulfate (Ventolin 0.083% Nebulizer Soln -) 1 amp NEB Q1H PRN PRN Reason: SHORT OF BREATH/WHEEZING Albuterol/Ipratropium (Duoneb -) 1 amp NEB Q6H PRN PRN Reason: SHORTNESS OF BREATH Last Admin: 08/16/18 21:10 Dose: 1 amp Aspirin (Asa -) 81 mg PO DAILY [facility] Last Admin: 08/18/18 09:25 Dose: 81 mg Budesonide/Formoterol Fumarate (Symbicort 160/4.5mcg -) 1 puff IH BID [facility] Last Admin: 08/18/18 09:40 Dose: 1 puff Docusate Sodium (Colace -) 100 mg PO DAILY [facility] Last Admin: 08/18/18 09:25 Dose: 100 mg Enoxaparin Sodium (Lovenox -) 40 mg SQ DAILY [facility] Last Admin: 08/18/18 09:25 Dose: 40 mg Ferrous Sulfate (Feosol -) 325 mg PO TID [facility] Last Admin: 08/18/18 06:19 Dose: 325 mg Furosemide (Lasix Injection -) 60 mg IVPUSH BID@0600,1400 [facility] Last Admin: 08/18/18 06:23 Dose: 60 mg Gabapentin (Neurontin -) 300 mg PO TID [facility] Last Admin: 08/18/18 06:20 Dose: 300 mg Hydralazine HCl (Apresoline -) 50 mg PO TID [facility] Last Admin: 08/18/18 06:19 Dose: 50 mg Azithromycin 250 mg/ Dextrose 250 mls @ 250 mls/hr IVPB DAILY [facility] Last Admin: 08/18/18 09:44 Dose: 250 mls/hr Ceftriaxone Sodium 1 gm/ (Dextrose) 50 mls @ 100 mls/hr IVPB DAILY [facility]; Protocol Last Admin: 08/18/18 09:26 Dose: 100 mls/hr Insulin Aspart (Novolog Vial Sliding Scale -) 1 vial SQ Q4HPO [facility]; Protocol Last Admin: 08/18/18 06:23 Dose: 6 units Insulin Aspart (Novolog Mix 70/30 Vial) 20 units SQ BIDAC [facility] Last Admin: 08/18/18 06:22 Dose: 20 units Insulin Detemir (Levemir Vial) 20 units SQ HS [facility] Last Admin: 08/17/18 21:22 Dose: 20 units Methylprednisolone Sodium Succinate (Solu-Medrol -) 40 mg IVPUSH Q12H [facility] Last Admin: 08/17/18 23:22 Dose: 40 mg Metolazone (Zaroxolyn -) 5 mg PO DAILY [facility] Last Admin: 08/18/18 09:26 Dose: 5 mg Nifedipine (Procardia Xl -) 90 mg PO DAILY [facility] Last Admin: 08/18/18 09:26 Dose: 90 mg Rosuvastatin Calcium (Crestor -) 5 mg PO HS [facility] Last Admin: 08/17/18 21:12 Dose: 5 mg Tamsulosin HCl (Flomax -) 0.4 mg PO DAILY@0830 [facility] Last Admin: 08/18/18 09:25 Dose: 0.4 mg - Objective Vital Signs: Vital Signs Temperature 97.6 F 08/18/18 05:00 Pulse Rate 82 08/18/18 05:00 Respiratory Rate 18 08/18/18 05:00 Blood Pressure 146/90 08/18/18 05:00 O2 Sat by Pulse Oximetry (%) 98 08/17/18 21:08 Constitutional: Yes: Anxious, Obese Eyes: Yes: WNL HENT: Yes: WNL Neck: Yes: WNL Cardiovascular: Yes: S1, S2, S4 Respiratory: Yes: Tachypnea Gastrointestinal: Yes: Abdomen, Obese ...Rectal Exam: Yes: Deferred Genitourinary: No: Anuria Edema: Yes Edema: LLE: 4+, RLE: 4+ Peripheral Pulses WNL: No Peripheral Pulses: Left Doralis Pedis: 1+, Right Dorsalis Pedis: 1+ Integumentary: Yes: Venous Stasis Changes, Other (massive scrotal swelling; LE edema) Labs: CBC, BMP 08/16/18 06:00 08/18/18 05:30 INR, PTT INR 1.10 (0.83-1.09) H 08/12/18 21:00 Problem List - Problems (1) Acute on chronic kidney failure Assessment/Plan: On fruosemide and metolazone. f/u with gut dropper. Code(s): N17.9 - ACUTE KIDNEY FAILURE, UNSPECIFIED; N18.9 - CHRONIC KIDNEY DISEASE, UNSPECIFIED (2) COPD exacerbation Code(s): J44.1 - CHRONIC OBSTRUCTIVE PULMONARY DISEASE W (ACUTE) EXACERBATION (3) Acute on chronic respiratory failure with hypoxia and hypercapnia Assessment/Plan: Steroids, bronchodilators, O2, antibiotics per control systems developer. Code(s): J96.21 - ACUTE AND CHRONIC RESPIRATORY FAILURE WITH HYPOXIA; J96.22 - ACUTE AND CHRONIC RESPIRATORY FAILURE WITH HYPERCAPNIA (4) Diastolic CHF Assessment/Plan: On nifedipine XL, hydrlazine, furosemide, and metolazone; Imdur added. ECHO: normal LVEF: abnormal diastolic compliance; RV dilatation and reduced RVEF ; evidence of fluid overload (flattened ventricular septum). F/u BUN/Cr, electrolytes, daily weight, Is and Os. Code(s): I50.30 - UNSPECIFIED DIASTOLIC (CONGESTIVE) HEART FAILURE (5) Renal insufficiency Code(s): N28.9 - DISORDER OF KIDNEY AND URETER, UNSPECIFIED (6) Respiratory distress Code(s): R06.00 - DYSPNEA, UNSPECIFIED (7) Sleep apnea Code(s): G47.30 - SLEEP APNEA, UNSPECIFIED (8) Morbid obesity Assessment/Plan: Pt has had discussions in the past regarding gastric bypass surgery. Code(s): E66.01 - MORBID (SEVERE) OBESITY DUE TO EXCESS CALORIES (9) Aortic root dilatation Assessment/Plan: Mild dilatation by ECHO this visit. F/u prior studies for comparison. CTA problematic due to renal dysfunction. Code(s): I77.810 - THORACIC AORTIC ECTASIA (10) Knee pain Assessment/Plan: bilateral knee pain; hx bilateral arthroscopic surgery. Code(s): M25.569 - PAIN IN UNSPECIFIED KNEE
[2018-08-18] MEDS: ALBUTEROL SO4 2.5/IPRATROPIUM 0.5 INH SOL 3 ML VIAL.NEB. NEB PRN (11:15)
[2018-08-18] MEDS: methylPREDNISolone NA SUCC 40 MG/1 ML VIAL IVPUSH SCH ×2 (12:05→22:56)
--- NOTE | 2018-08-18 12:06 | PN ---
Progress Note, Physician History of Present Illness: PULMONARY ALERT ,OOB-CHAIR,LESS DYSPNEIC - Current Medication List Current Medications: Active Medications Albuterol Sulfate (Ventolin 0.083% Nebulizer Soln -) 1 amp NEB Q1H PRN PRN Reason: SHORT OF BREATH/WHEEZING Albuterol/Ipratropium (Duoneb -) 1 amp NEB Q6H PRN PRN Reason: SHORTNESS OF BREATH Last Admin: 08/18/18 11:15 Dose: 1 amp Aspirin (Asa -) 81 mg PO DAILY [facility] Last Admin: 08/18/18 09:25 Dose: 81 mg Budesonide/Formoterol Fumarate (Symbicort 160/4.5mcg -) 1 puff IH BID [facility] Last Admin: 08/18/18 09:40 Dose: 1 puff Docusate Sodium (Colace -) 100 mg PO DAILY [facility] Last Admin: 08/18/18 09:25 Dose: 100 mg Enoxaparin Sodium (Lovenox -) 40 mg SQ DAILY [facility] Last Admin: 08/18/18 09:25 Dose: 40 mg Ferrous Sulfate (Feosol -) 325 mg PO TID [facility] Last Admin: 08/18/18 06:19 Dose: 325 mg Furosemide (Lasix Injection -) 60 mg IVPUSH BID@0600,1400 [facility] Last Admin: 08/18/18 06:23 Dose: 60 mg Gabapentin (Neurontin -) 300 mg PO TID [facility] Last Admin: 08/18/18 06:20 Dose: 300 mg Hydralazine HCl (Apresoline -) 50 mg PO TID [facility] Last Admin: 08/18/18 06:19 Dose: 50 mg Azithromycin 250 mg/ Dextrose 250 mls @ 250 mls/hr IVPB DAILY [facility] Last Admin: 08/18/18 09:44 Dose: 250 mls/hr Ceftriaxone Sodium 1 gm/ (Dextrose) 50 mls @ 100 mls/hr IVPB DAILY [facility]; Protocol Last Admin: 08/18/18 09:26 Dose: 100 mls/hr Insulin Aspart (Novolog Vial Sliding Scale -) 1 vial SQ Q4HPO [facility]; Protocol Last Admin: 08/18/18 10:10 Dose: 6 units Insulin Aspart (Novolog Mix 70/30 Vial) 20 units SQ BIDAC [facility] Last Admin: 08/18/18 06:22 Dose: 20 units Insulin Detemir (Levemir Vial) 20 units SQ HS [facility] Last Admin: 08/17/18 21:22 Dose: 20 units Methylprednisolone Sodium Succinate (Solu-Medrol -) 40 mg IVPUSH Q12H [facility] Last Admin: 08/17/18 23:22 Dose: 40 mg Metolazone (Zaroxolyn -) 5 mg PO DAILY [facility] Last Admin: 08/18/18 09:26 Dose: 5 mg Nifedipine (Procardia Xl -) 90 mg PO DAILY [facility] Last Admin: 08/18/18 09:26 Dose: 90 mg Rosuvastatin Calcium (Crestor -) 5 mg PO HS [facility] Last Admin: 08/17/18 21:12 Dose: 5 mg Tamsulosin HCl (Flomax -) 0.4 mg PO DAILY@0830 [facility] Last Admin: 08/18/18 09:25 Dose: 0.4 mg - Objective Vital Signs: Vital Signs Temperature 98.7 F 08/18/18 09:00 Pulse Rate 76 08/18/18 09:00 Respiratory Rate 20 08/18/18 09:00 Blood Pressure 147/76 08/18/18 09:00 O2 Sat by Pulse Oximetry (%) 96 08/18/18 10:00 Constitutional: Yes: Calm, Obese Eyes: Yes: WNL HENT: Yes: WNL Neck: Yes: WNL Cardiovascular: Yes: Regular Rate and Rhythm, S1, S2 Respiratory: Yes: Diminished Gastrointestinal: Yes: Normal Bowel Sounds, Soft Extremities: Yes: WNL Edema: Yes Labs: 08/18/18 05:30 Problem List - Problems (1) CKD (chronic kidney disease) Code(s): N18.9 - CHRONIC KIDNEY DISEASE, UNSPECIFIED (2) COPD exacerbation Code(s): J44.1 - CHRONIC OBSTRUCTIVE PULMONARY DISEASE W (ACUTE) EXACERBATION (3) Acute exacerbation of CHF (congestive heart failure) Code(s): I50.9 - HEART FAILURE, UNSPECIFIED (4) Acute on chronic respiratory failure with hypoxia and hypercapnia Code(s): J96.21 - ACUTE AND CHRONIC RESPIRATORY FAILURE WITH HYPOXIA; J96.22 - ACUTE AND CHRONIC RESPIRATORY FAILURE WITH HYPERCAPNIA (5) Acute renal failure Code(s): N17.9 - ACUTE KIDNEY FAILURE, UNSPECIFIED (6) Diabetes Code(s): E11.9 - TYPE 2 DIABETES MELLITUS WITHOUT COMPLICATIONS (7) Hypertension Code(s): I10 - ESSENTIAL (PRIMARY) HYPERTENSION Qualifiers: Hypertension type: unspecified Qualified Code(s): I10 - Essential (primary ) hypertension (8) Morbid exogenous obesity Code(s): E66.01 - MORBID (SEVERE) OBESITY DUE TO EXCESS CALORIES (9) Morbid obesity Code(s): E66.01 - MORBID (SEVERE) OBESITY DUE TO EXCESS CALORIES (10) Obesity hypoventilation syndrome Code(s): E66.2 - MORBID (SEVERE) OBESITY WITH ALVEOLAR HYPOVENTILATION (11) Pulmonary HTN Code(s): I27.2 - OTHER SECONDARY PULMONARY HYPERTENSION * DO NOT USE * (12) Respiratory distress Code(s): R06.00 - DYSPNEA, UNSPECIFIED (13) Shortness of breath Code(s): R06.02 - SHORTNESS OF BREATH (14) Sleep apnea Code(s): G47.30 - SLEEP APNEA, UNSPECIFIED (15) Acute on chronic kidney failure Code(s): N17.9 - ACUTE KIDNEY FAILURE, UNSPECIFIED; N18.9 - CHRONIC KIDNEY DISEASE, UNSPECIFIED Assessment/Plan IMP ACUTE ON CHRONIC HYPOXEMIC RESPIRATORY FAILURE IMPROVING CHRONIC HYPOXEMIC/HYPERCAPNEIC RESPIRATORY FAILURE COPD EXACERBATION IMPROVING DIASTOLIC HF CHEST PAIN PULMONARY HTN COR PULMONALE OBESITY-HYPOVENTILATION SYNDROME ACUTE ON CHRONIC KIDNEY DISEASE HTN DM TTAI PLAN NIPPV TO HELP REDUCE WORK OF BREATHING O2 TO MAINTAIN O2 SAT 90% OR GREATER MEDROL TAPER BIPAP AT NIGHT AND PRN ABX INHALED BRONCHODILATORS LASIX DAILY WT DVT PROPHYLAXIS MONITOR LYTES,RENAL FUNCTION STRICT I+OS F/U ABGS DR SALVADOR Problem List - Problems (1) CKD (chronic kidney disease) Code(s): N18.9 - CHRONIC KIDNEY DISEASE, UNSPECIFIED (2) COPD exacerbation Code(s): J44.1 - CHRONIC OBSTRUCTIVE PULMONARY DISEASE W (ACUTE) EXACERBATION (3) Acute exacerbation of CHF (congestive heart failure) Code(s): I50.9 - HEART FAILURE, UNSPECIFIED (4) Acute on chronic respiratory failure with hypoxia and hypercapnia Code(s): J96.21 - ACUTE AND CHRONIC RESPIRATORY FAILURE WITH HYPOXIA; J96.22 - ACUTE AND CHRONIC RESPIRATORY FAILURE WITH HYPERCAPNIA (5) Acute renal failure Code(s): N17.9 - ACUTE KIDNEY FAILURE, UNSPECIFIED (6) Diabetes Code(s): E11.9 - TYPE 2 DIABETES MELLITUS WITHOUT COMPLICATIONS (7) Hypertension Code(s): I10 - ESSENTIAL (PRIMARY) HYPERTENSION Qualifiers: Hypertension type: unspecified Qualified Code(s): I10 - Essential (primary ) hypertension (8) Morbid exogenous obesity Code(s): E66.01 - MORBID (SEVERE) OBESITY DUE TO EXCESS CALORIES (9) Morbid obesity Code(s): E66.01 - MORBID (SEVERE) OBESITY DUE TO EXCESS CALORIES (10) Obesity hypoventilation syndrome Code(s): E66.2 - MORBID (SEVERE) OBESITY WITH ALVEOLAR HYPOVENTILATION (11) Pulmonary HTN Code(s): I27.2 - OTHER SECONDARY PULMONARY HYPERTENSION * DO NOT USE * (12) Respiratory distress Code(s): R06.00 - DYSPNEA, UNSPECIFIED (13) Shortness of breath Code(s): R06.02 - SHORTNESS OF BREATH (14) Sleep apnea Code(s): G47.30 - SLEEP APNEA, UNSPECIFIED (15) Acute on chronic kidney failure Code(s): N17.9 - ACUTE KIDNEY FAILURE, UNSPECIFIED; N18.9 - CHRONIC KIDNEY DISEASE, UNSPECIFIED
--- NOTE | 2018-08-18 12:19 | PN ---
Progress Note, Physician History of Present Illness: Pt seen and examined at bedside. He still has edema and is still overloaded. No great change since yesterday. - Current Medication List Current Medications: Active Medications Albuterol Sulfate (Ventolin 0.083% Nebulizer Soln -) 1 amp NEB Q1H PRN PRN Reason: SHORT OF BREATH/WHEEZING Albuterol/Ipratropium (Duoneb -) 1 amp NEB Q6H PRN PRN Reason: SHORTNESS OF BREATH Last Admin: 08/18/18 11:15 Dose: 1 amp Aspirin (Asa -) 81 mg PO DAILY [facility] Last Admin: 08/18/18 09:25 Dose: 81 mg Budesonide/Formoterol Fumarate (Symbicort 160/4.5mcg -) 1 puff IH BID [facility] Last Admin: 08/18/18 09:40 Dose: 1 puff Docusate Sodium (Colace -) 100 mg PO DAILY [facility] Last Admin: 08/18/18 09:25 Dose: 100 mg Enoxaparin Sodium (Lovenox -) 40 mg SQ DAILY [facility] Last Admin: 08/18/18 09:25 Dose: 40 mg Ferrous Sulfate (Feosol -) 325 mg PO TID [facility] Last Admin: 08/18/18 06:19 Dose: 325 mg Furosemide (Lasix Injection -) 60 mg IVPUSH BID@0600,1400 [facility] Last Admin: 08/18/18 06:23 Dose: 60 mg Gabapentin (Neurontin -) 300 mg PO TID [facility] Last Admin: 08/18/18 06:20 Dose: 300 mg Hydralazine HCl (Apresoline -) 50 mg PO TID [facility] Last Admin: 08/18/18 06:19 Dose: 50 mg Azithromycin 250 mg/ Dextrose 250 mls @ 250 mls/hr IVPB DAILY [facility] Last Admin: 08/18/18 09:44 Dose: 250 mls/hr Ceftriaxone Sodium 1 gm/ (Dextrose) 50 mls @ 100 mls/hr IVPB DAILY [facility]; Protocol Last Admin: 08/18/18 09:26 Dose: 100 mls/hr Insulin Aspart (Novolog Vial Sliding Scale -) 1 vial SQ Q4HPO [facility]; Protocol Last Admin: 08/18/18 10:10 Dose: 6 units Insulin Aspart (Novolog Mix 70/30 Vial) 20 units SQ BIDAC [facility] Last Admin: 08/18/18 06:22 Dose: 20 units Insulin Detemir (Levemir Vial) 20 units SQ HS [facility] Last Admin: 08/17/18 21:22 Dose: 20 units Methylprednisolone Sodium Succinate (Solu-Medrol -) 40 mg IVPUSH Q12H [facility] Last Admin: 08/18/18 12:05 Dose: 40 mg Metolazone (Zaroxolyn -) 5 mg PO DAILY [facility] Last Admin: 08/18/18 09:26 Dose: 5 mg Nifedipine (Procardia Xl -) 90 mg PO DAILY [facility] Last Admin: 08/18/18 09:26 Dose: 90 mg Rosuvastatin Calcium (Crestor -) 5 mg PO HS [facility] Last Admin: 08/17/18 21:12 Dose: 5 mg Tamsulosin HCl (Flomax -) 0.4 mg PO DAILY@0830 [facility] Last Admin: 08/18/18 09:25 Dose: 0.4 mg - Objective Vital Signs: Vital Signs Temperature 98.7 F 08/18/18 09:00 Pulse Rate 76 08/18/18 09:00 Respiratory Rate 20 08/18/18 09:00 Blood Pressure 147/76 08/18/18 09:00 O2 Sat by Pulse Oximetry (%) 96 08/18/18 10:00 Constitutional: Yes: Calm Eyes: Yes: Conjunctiva Clear HENT: Yes: Atraumatic Neck: Yes: Supple Cardiovascular: Yes: S1, S2 Respiratory: Yes: CTA Bilaterally Gastrointestinal: Yes: Soft, Abdomen, Obese Genitourinary: Yes: Ibrahim Present Musculoskeletal: Yes: WNL Edema: Yes Edema: LLE: 2+, RLE: 2+ Neurological: Yes: Oriented Psychiatric: Yes: Oriented Labs: CBC, BMP 08/16/18 06:00 08/18/18 05:30 INR, PTT INR 1.10 (0.83-1.09) H 08/12/18 21:00 Problem List - Problems (1) CKD (chronic kidney disease) Code(s): N18.9 - CHRONIC KIDNEY DISEASE, UNSPECIFIED (2) COPD exacerbation Code(s): J44.1 - CHRONIC OBSTRUCTIVE PULMONARY DISEASE W (ACUTE) EXACERBATION (3) Acute exacerbation of CHF (congestive heart failure) Code(s): I50.9 - HEART FAILURE, UNSPECIFIED Assessment/Plan Current Medications Generic Name Dose Route Start Last Admin Trade Name Freq PRN Reason Stop Dose Admin Albuterol Sulfate 1 amp 08/15/18 10:15 Ventolin 0.083% Nebulizer Soln - NEB Q1H PRN SHORT OF BREATH/WHEEZING Albuterol/Ipratropium 1 amp 08/13/18 02:56 08/18/18 11:15 Duoneb - NEB 1 amp Q6H PRN Administration SHORTNESS OF BREATH Aspirin 81 mg 08/13/18 10:00 08/18/18 09:25 Asa - PO 81 mg DAILY [facility] Administration Budesonide/Formoterol Fumarate 1 puff 08/13/18 10:00 08/18/18 09:40 Symbicort 160/4.5mcg - IH 1 puff BID [facility] Administration Docusate Sodium 100 mg 08/13/18 10:00 08/18/18 09:25 Colace - PO 100 mg DAILY [facility] Administration Enoxaparin Sodium 40 mg 08/16/18 10:00 08/18/18 09:25 Lovenox - SQ 40 mg DAILY [facility] Administration Ferrous Sulfate 325 mg 08/13/18 06:00 08/18/18 06:19 Feosol - PO 325 mg TID [facility] Administration Furosemide 60 mg 08/17/18 14:00 08/18/18 06:23 Lasix Injection - IVPUSH 60 mg BID@0600,1400 [facility] Administration Gabapentin 300 mg 08/13/18 06:00 08/18/18 06:20 Neurontin - PO 300 mg TID [facility] Administration Hydralazine HCl 50 mg 08/16/18 10:38 08/18/18 06:19 Apresoline - PO 50 mg TID [facility] Administration Azithromycin 250 mg/ Dextrose 250 mls @ 250 mls/hr 08/13/18 10:00 08/18/18 09 :44 IVPB 250 mls/hr DAILY [facility] Administration Ceftriaxone Sodium 1 gm/ 50 mls @ 100 mls/hr 08/13/18 10:00 08/18/18 09:26 Dextrose IVPB 100 mls/hr DAILY [facility] Administration Protocol Insulin Aspart 1 vial 08/15/18 22:00 08/18/18 10:10 Novolog Vial Sliding Scale - SQ 6 units Q4HPO [facility] Administration Protocol Insulin Aspart 20 units 08/16/18 07:00 08/18/18 06:22 Novolog Mix 70/30 Vial SQ 20 units BIDAC [facility] Administration Insulin Detemir 20 units 08/15/18 22:00 08/17/18 21:22 Levemir Vial SQ 20 units HS [facility] Administration Methylprednisolone Sodium Succinate 40 mg 08/17/18 11:30 08/18/18 12:05 Solu-Medrol - IVPUSH 40 mg Q12H [facility] Administration Metolazone 5 mg 08/17/18 10:00 08/18/18 09:26 Zaroxolyn - PO 5 mg DAILY [facility] Administration Nifedipine 90 mg 08/13/18 10:00 08/18/18 09:26 Procardia Xl - PO 90 mg DAILY [facility] Administration Rosuvastatin Calcium 5 mg 08/13/18 22:00 08/17/18 21:12 Crestor - PO 5 mg HS [facility] Administration Tamsulosin HCl 0.4 mg 08/13/18 08:30 08/18/18 09:25 Flomax - PO 0.4 mg DAILY@0830 [facility] Administration Impression 1. CKD 2. dyspnea 3. morbid obesity 4. DM 5. HTN 6. likely sleep apnea 7. chest pain 8. hyperkalemia Plan - cont lasix - cont metolazone - monitor potassium, level is improved - may need to increase lasix further tomorrow - cardio follow up - recommend weight loss
--- NOTE | 2018-08-18 21:54 | PN ---
Progress Note, Physician - Current Medication List Current Medications: Active Medications Albuterol Sulfate (Ventolin 0.083% Nebulizer Soln -) 1 amp NEB Q1H PRN PRN Reason: SHORT OF BREATH/WHEEZING Albuterol/Ipratropium (Duoneb -) 1 amp NEB Q6H PRN PRN Reason: SHORTNESS OF BREATH Last Admin: 08/18/18 11:15 Dose: 1 amp Aspirin (Asa -) 81 mg PO DAILY ON LICENSE OF [facility] Last Admin: 08/18/18 09:25 Dose: 81 mg Budesonide/Formoterol Fumarate (Symbicort 160/4.5mcg -) 1 puff IH BID ON LICENSE OF [facility] Last Admin: 08/18/18 09:40 Dose: 1 puff Docusate Sodium (Colace -) 100 mg PO DAILY ON [facility] OF [facility] Last Admin: 08/18/18 09:25 Dose: 100 mg Enoxaparin Sodium (Lovenox -) 40 mg SQ DAILY ON [facility] OF [facility] Last Admin: 08/18/18 09:25 Dose: 40 mg Ferrous Sulfate (Feosol -) 325 mg PO TID ON LICENSE OF [facility] Last Admin: 08/18/18 13:34 Dose: 325 mg Furosemide (Lasix Injection -) 60 mg IVPUSH BID@0600,1400 ON [facility] OF [facility] Last Admin: 08/18/18 13:34 Dose: 60 mg Gabapentin (Neurontin -) 300 mg PO TID ON [facility] OF [facility] Last Admin: 08/18/18 13:35 Dose: 300 mg Hydralazine HCl (Apresoline -) 50 mg PO TID ON [facility] OF [facility] Last Admin: 08/18/18 13:34 Dose: 50 mg Azithromycin 250 mg/ Dextrose 250 mls @ 250 mls/hr IVPB DAILY ON [facility] OF [facility] Last Admin: 08/18/18 09:44 Dose: 250 mls/hr Ceftriaxone Sodium 1 gm/ (Dextrose) 50 mls @ 100 mls/hr IVPB DAILY ON [facility] OF [facility]; Protocol Last Admin: 08/18/18 09:26 Dose: 100 mls/hr Insulin Aspart (Novolog Mix 70/30 Vial) 20 units SQ BIDAC ON LICENSE OF [facility] Last Admin: 08/18/18 17:17 Dose: 20 units Insulin Aspart (Novolog Vial Sliding Scale -) [facility] Protocol Last Admin: 08/18/18 17:27 Dose: 10 units Insulin Detemir (Levemir Vial) 20 units SQ HS ON [facility] OF [facility] Last Admin: 08/17/18 21:22 Dose: 20 units Methylprednisolone Sodium Succinate (Solu-Medrol -) 40 mg IVPUSH Q12H ON LICENSE OF [facility] Last Admin: 08/18/18 12:05 Dose: 40 mg Metolazone (Zaroxolyn -) 5 mg PO DAILY ON [facility] OF [facility] Last Admin: 08/18/18 09:26 Dose: 5 mg Nifedipine (Procardia Xl -) 90 mg PO DAILY ON [facility] OF [facility] Last Admin: 08/18/18 09:26 Dose: 90 mg Rosuvastatin Calcium (Crestor -) 5 mg PO HS ON [facility] OF [facility] Last Admin: 08/17/18 21:12 Dose: 5 mg Tamsulosin HCl (Flomax -) 0.4 mg PO DAILY@0830 ON [facility] OF [facility] Last Admin: 08/18/18 09:25 Dose: 0.4 mg - Objective Vital Signs: Vital Signs Temperature 97.8 F 08/18/18 17:00 Pulse Rate 102 H 08/18/18 17:00 Respiratory Rate 20 08/18/18 17:00 Blood Pressure 152/84 08/18/18 17:00 O2 Sat by Pulse Oximetry (%) 95 08/18/18 20:27 Labs: CBC, BMP 08/16/18 06:00 08/18/18 05:30 INR, PTT INR 1.10 (0.83-1.09) H 08/12/18 21:00 Problem List - Problems (1) Diastolic CHF Code(s): I50.30 - UNSPECIFIED DIASTOLIC (CONGESTIVE) HEART FAILURE (2) COPD exacerbation Code(s): J44.1 - CHRONIC OBSTRUCTIVE PULMONARY DISEASE W (ACUTE) EXACERBATION (3) Acute on chronic kidney failure Code(s): N17.9 - ACUTE KIDNEY FAILURE, UNSPECIFIED; N18.9 - CHRONIC KIDNEY DISEASE, UNSPECIFIED (4) Acute on chronic respiratory failure with hypoxia and hypercapnia Code(s): J96.21 - ACUTE AND CHRONIC RESPIRATORY FAILURE WITH HYPOXIA; J96.22 - ACUTE AND CHRONIC RESPIRATORY FAILURE WITH HYPERCAPNIA (5) Diabetes Code(s): E11.9 - TYPE 2 DIABETES MELLITUS WITHOUT COMPLICATIONS (6) Hyperlipidemia Code(s): E78.5 - HYPERLIPIDEMIA, UNSPECIFIED (7) Hypertension Code(s): I10 - ESSENTIAL (PRIMARY) HYPERTENSION Qualifiers: Hypertension type: unspecified Qualified Code(s): I10 - Essential (primary ) hypertension (8) Morbid obesity Code(s): E66.01 - MORBID (SEVERE) OBESITY DUE TO EXCESS CALORIES (9) Sleep apnea Code(s): G47.30 - SLEEP APNEA, UNSPECIFIED
[2018-08-18] MEDS ORDERED: INSULIN SLIDING SCALE (NOVOLOG) 1 VIAL SQ SCH (22:00)
[2018-08-18] MEDS: ROSUVASTATIN CA 5 MG TABLET (FP) PO SCH (22:04)
[2018-08-18] MEDS: INSULIN (LEVEMIR) 100 UNITS/ML UNITS SQ SCH (22:05)
--- NOTE | 2018-08-18 22:45 | PN ---
Progress Note, Physician Chief Complaint: left groin pain swelling - Current Medication List Current Medications: Active Medications Albuterol Sulfate (Ventolin 0.083% Nebulizer Soln -) 1 amp NEB Q1H PRN PRN Reason: SHORT OF BREATH/WHEEZING Albuterol/Ipratropium (Duoneb -) 1 amp NEB Q6H PRN PRN Reason: SHORTNESS OF BREATH Last Admin: 08/18/18 11:15 Dose: 1 amp Aspirin (Asa -) 81 mg PO DAILY [facility] Last Admin: 08/18/18 09:25 Dose: 81 mg Budesonide/Formoterol Fumarate (Symbicort 160/4.5mcg -) 1 puff IH BID [facility] Last Admin: 08/18/18 22:07 Dose: 1 puff Docusate Sodium (Colace -) 100 mg PO DAILY [facility] Last Admin: 08/18/18 09:25 Dose: 100 mg Enoxaparin Sodium (Lovenox -) 40 mg SQ DAILY [facility] Last Admin: 08/18/18 09:25 Dose: 40 mg Ferrous Sulfate (Feosol -) 325 mg PO TID [facility] Last Admin: 08/18/18 22:04 Dose: 325 mg Furosemide (Lasix Injection -) 60 mg IVPUSH BID@0600,1400 [facility] Last Admin: 08/18/18 13:34 Dose: 60 mg Gabapentin (Neurontin -) 300 mg PO TID [facility] Last Admin: 08/18/18 22:04 Dose: 300 mg Hydralazine HCl (Apresoline -) 50 mg PO TID [facility] Last Admin: 08/18/18 22:04 Dose: 50 mg Azithromycin 250 mg/ Dextrose 250 mls @ 250 mls/hr IVPB DAILY [facility] Last Admin: 08/18/18 09:44 Dose: 250 mls/hr Ceftriaxone Sodium 1 gm/ (Dextrose) 50 mls @ 100 mls/hr IVPB DAILY [facility]; Protocol Last Admin: 08/18/18 09:26 Dose: 100 mls/hr Insulin Aspart (Novolog Mix 70/30 Vial) 20 units SQ BIDAC [facility] Last Admin: 08/18/18 17:17 Dose: 20 units Insulin Aspart (Novolog Vial Sliding Scale -) 1 vial SQ ACHS [facility]; Protocol Last Admin: 08/18/18 22:05 Dose: 8 units Insulin Detemir (Levemir Vial) 20 units SQ HS [facility] Last Admin: 08/18/18 22:05 Dose: 20 units Methylprednisolone Sodium Succinate (Solu-Medrol -) 40 mg IVPUSH Q12H [facility] Last Admin: 08/18/18 12:05 Dose: 40 mg Metolazone (Zaroxolyn -) 5 mg PO DAILY [facility] Last Admin: 08/18/18 09:26 Dose: 5 mg Nifedipine (Procardia Xl -) 90 mg PO DAILY [facility] Last Admin: 08/18/18 09:26 Dose: 90 mg Rosuvastatin Calcium (Crestor -) 5 mg PO [facility] Last Admin: 08/18/18 22:04 Dose: 5 mg Tamsulosin HCl (Flomax -) 0.4 mg PO DAILY@0830 [facility] Last Admin: 08/18/18 09:25 Dose: 0.4 mg - Objective Vital Signs: Vital Signs Temperature 97.8 F 08/18/18 17:00 Pulse Rate 102 H 08/18/18 17:00 Respiratory Rate 20 08/18/18 17:00 Blood Pressure 152/84 08/18/18 17:00 O2 Sat by Pulse Oximetry (%) 95 08/18/18 20:27 Constitutional: Yes: Anxious Eyes: Yes: EOM Intact HENT: Yes: Normocephalic Neck: Yes: Trachea Midline Cardiovascular: Yes: Tachycardia Respiratory: Yes: Rhonchi, SOB, SOB on Exertion, Tachypnea Gastrointestinal: Yes: Abdomen, Obese, Distention ...Rectal Exam: Yes: Deferred Genitourinary: Yes: CVA Tenderness - Right Musculoskeletal: Yes: Back Pain, Joint Stiffness, Joint Swelling, Muscle Pain, Muscle Weakness Extremities: Yes: Cool, Delayed Capillary Refill, Other Edema: LLE: 3+, RLE: 3+ Integumentary: Yes: Rash, Onychomycosis, Venous Stasis Changes Wound/Incision: Yes: Well Approximated Neurological: Yes: Alert, Oriented, Numbness, Tingling, Tremors, Unsteady Gait, Weakness Labs: CBC, BMP 08/16/18 06:00 08/18/18 05:30 INR, PTT INR 1.10 (0.83-1.09) H 08/12/18 21:00 Problem List - Problems (1) Type 2 diabetes mellitus with hyperosmolarity without nonketotic hyperglycemic-hyperosmolar coma ([facility]) Code(s): E11.00 - TYPE 2 DIAB W HYPROSM W/O NONKET HYPRGLY-HYPROS COMA ([facility]) (2) Acute on chronic kidney failure Code(s): N17.9 - ACUTE KIDNEY FAILURE, UNSPECIFIED; N18.9 - CHRONIC KIDNEY DISEASE, UNSPECIFIED (3) CKD (chronic kidney disease) Code(s): N18.9 - CHRONIC KIDNEY DISEASE, UNSPECIFIED (4) COPD exacerbation Code(s): J44.1 - CHRONIC OBSTRUCTIVE PULMONARY DISEASE W (ACUTE) EXACERBATION (5) Acute exacerbation of CHF (congestive heart failure) Code(s): I50.9 - HEART FAILURE, UNSPECIFIED (6) Acute on chronic respiratory failure with hypoxia and hypercapnia Code(s): J96.21 - ACUTE AND CHRONIC RESPIRATORY FAILURE WITH HYPOXIA; J96.22 - ACUTE AND CHRONIC RESPIRATORY FAILURE WITH HYPERCAPNIA (7) Acute renal failure Code(s): N17.9 - ACUTE KIDNEY FAILURE, UNSPECIFIED Assessment/Plan Current Active Problems Acute on chronic kidney failure (Acute) Aortic root dilatation (Acute) CKD (chronic kidney disease) (Acute) COPD exacerbation (Acute) Chest pain (Acute) Type 2 diabetes mellitus with hyperosmolarity without nonketotic hyperglycemic- [facility]osmolar coma [facility] ([facility]) Abnormal Lab Results 08/17/18 08/18/18 05:30 05:30 Anion Gap 7 L 6 L BUN 70 H 67 H Creatinine 2.4 H 2.3 H Random Glucose 237 H 213 H Calcium 8.3 L AST 14 L 12 L Albumin 2.9 L 2.9 L HDL Cholesterol 70 H Laboratory Results - last 24 hr 08/17/18 08/18/18 08/18/18 05:30 05:30 05:49 Sodium 138 137 Potassium 5.0 5.0 Chloride 105 102 Carbon Dioxide 27 30 Anion Gap 7 L 6 L BUN 70 H 67 H Creatinine 2.4 H 2.3 H Est GFR (CKD-EPI)AfAm 35.38 37.25 Est GFR (CKD-EPI)NonAf 30.53 32.14 POC Glucometer 218 Random Glucose 237 H 213 H Calcium 8.7 8.3 L Total Bilirubin 0.6 0.6 AST 14 L 12 L ALT 32 30 Alkaline Phosphatase 102 96 Total Protein 6.6 6.6 Albumin 2.9 L 2.9 L Triglycerides 98 Cholesterol 175 Total LDL Cholesterol 93 HDL Cholesterol 70 H TSH 1.75 08/18/18 08/18/18 08/18/18 10:24 14:41 17:13 Sodium Potassium Chloride Carbon Dioxide Anion Gap BUN Creatinine Est GFR (CKD-EPI)AfAm Est GFR (CKD-EPI)NonAf POC Glucometer 233 291 370 Random Glucose Calcium Total Bilirubin AST ALT Alkaline Phosphatase Total Protein Albumin Triglycerides Cholesterol Total LDL Cholesterol HDL Cholesterol TSH 08/18/18 22:03 Sodium Potassium Chloride Carbon Dioxide Anion Gap BUN Creatinine Est GFR (CKD-EPI)AfAm Est GFR (CKD-EPI)NonAf POC Glucometer 304 Random Glucose Calcium Total Bilirubin AST ALT Alkaline Phosphatase Total Protein Albumin Triglycerides Cholesterol Total LDL Cholesterol HDL Cholesterol TSH plan: \consider surgical consult left groin boil vs cellulitis novolog 70/30 40 units bid as steroid raise resistance levemir 25 units hs
--- NOTE | 2018-08-19 01:46 | PN ---
Progress Note, Physician History of Present Illness: Pt SOB and not ambulating - Current Medication List Current Medications: Active Medications Albuterol Sulfate (Ventolin 0.083% Nebulizer Soln -) 1 amp NEB Q1H PRN PRN Reason: SHORT OF BREATH/WHEEZING Albuterol/Ipratropium (Duoneb -) 1 amp NEB Q6H PRN PRN Reason: SHORTNESS OF BREATH Last Admin: 08/18/18 11:15 Dose: 1 amp Aspirin (Asa -) 81 mg PO DAILY [facility] Last Admin: 08/18/18 09:25 Dose: 81 mg Budesonide/Formoterol Fumarate (Symbicort 160/4.5mcg -) 1 puff IH BID [facility] Last Admin: 08/18/18 22:07 Dose: 1 puff Docusate Sodium (Colace -) 100 mg PO DAILY [facility] Last Admin: 08/18/18 09:25 Dose: 100 mg Enoxaparin Sodium (Lovenox -) 40 mg SQ DAILY [facility] Last Admin: 08/18/18 09:25 Dose: 40 mg Ferrous Sulfate (Feosol -) 325 mg PO TID [facility] Last Admin: 08/18/18 22:04 Dose: 325 mg Furosemide (Lasix Injection -) 60 mg IVPUSH BID@0600,1400 [facility] Last Admin: 08/18/18 13:34 Dose: 60 mg Gabapentin (Neurontin -) 300 mg PO TID [facility] Last Admin: 08/18/18 22:04 Dose: 300 mg Hydralazine HCl (Apresoline -) 50 mg PO TID [facility] Last Admin: 08/18/18 22:04 Dose: 50 mg Azithromycin 250 mg/ Dextrose 250 mls @ 250 mls/hr IVPB DAILY [facility] Last Admin: 08/18/18 09:44 Dose: 250 mls/hr Ceftriaxone Sodium 1 gm/ (Dextrose) 50 mls @ 100 mls/hr IVPB DAILY [facility]; Protocol Last Admin: 08/18/18 09:26 Dose: 100 mls/hr Insulin Aspart (Novolog Vial Sliding Scale -) 1 vial SQ ACHS [facility]; Protocol Last Admin: 08/18/18 22:05 Dose: 8 units Insulin Aspart (Novolog Mix 70/30 Vial) 40 units SQ BIDAC [facility] Insulin Detemir (Levemir Vial) 25 units SQ HS [facility] Methylprednisolone Sodium Succinate (Solu-Medrol -) 40 mg IVPUSH Q12H [facility] Last Admin: 08/18/18 22:56 Dose: 40 mg Metolazone (Zaroxolyn -) 5 mg PO DAILY [facility] Last Admin: 08/18/18 09:26 Dose: 5 mg Nifedipine (Procardia Xl -) 90 mg PO DAILY [facility] Last Admin: 08/18/18 09:26 Dose: 90 mg Rosuvastatin Calcium (Crestor -) 5 mg PO HS [facility] Last Admin: 08/18/18 22:04 Dose: 5 mg Tamsulosin HCl (Flomax -) 0.4 mg PO DAILY@0830 [facility] Last Admin: 08/18/18 09:25 Dose: 0.4 mg - Objective Vital Signs: Vital Signs Temperature 97.8 F 08/18/18 17:00 Pulse Rate 102 H 08/18/18 17:00 Respiratory Rate 20 08/18/18 17:00 Blood Pressure 152/84 08/18/18 17:00 O2 Sat by Pulse Oximetry (%) 95 08/18/18 20:27 Neck: Yes: WNL, Supple Cardiovascular: Yes: WNL, Regular Rate and Rhythm Respiratory: Yes: Diminished Gastrointestinal: Yes: WNL, Normal Bowel Sounds, Soft Labs: CBC, BMP 08/16/18 06:00 08/18/18 05:30 INR, PTT INR 1.10 (0.83-1.09) H 08/12/18 21:00 Problem List - Problems (1) Diastolic CHF Assessment/Plan: Acute on chronic diastolic heart failure Cont IV lasix Cont diuresis Code(s): I50.30 - UNSPECIFIED DIASTOLIC (CONGESTIVE) HEART FAILURE (2) COPD exacerbation Assessment/Plan: Cont IV sterpoids Cont nebulizers Code(s): J44.1 - CHRONIC OBSTRUCTIVE PULMONARY DISEASE W (ACUTE) EXACERBATION (3) Acute on chronic kidney failure Assessment/Plan: Cont to monitor labs Code(s): N17.9 - ACUTE KIDNEY FAILURE, UNSPECIFIED; N18.9 - CHRONIC KIDNEY DISEASE, UNSPECIFIED (4) Acute on chronic respiratory failure with hypoxia and hypercapnia Code(s): J96.21 - ACUTE AND CHRONIC RESPIRATORY FAILURE WITH HYPOXIA; J96.22 - ACUTE AND CHRONIC RESPIRATORY FAILURE WITH HYPERCAPNIA (5) Diabetes Assessment/Plan: Cont sliding scale w/ coverage Code(s): E11.9 - TYPE 2 DIABETES MELLITUS WITHOUT COMPLICATIONS (6) Hyperlipidemia Assessment/Plan: Cont statin Code(s): E78.5 - HYPERLIPIDEMIA, UNSPECIFIED (7) Hypertension Assessment/Plan: BP stable Cont antihypertensives Code(s): I10 - ESSENTIAL (PRIMARY) HYPERTENSION Qualifiers: Hypertension type: unspecified Qualified Code(s): I10 - Essential (primary ) hypertension (8) Morbid obesity Code(s): E66.01 - MORBID (SEVERE) OBESITY DUE TO EXCESS CALORIES (9) Sleep apnea Code(s): G47.30 - SLEEP APNEA, UNSPECIFIED
[2018-08-19] MEDS: FUROSEMIDE 40 MG/4 ML INJECTABLE VIAL IVPUSH SCH ×2 (06:42→13:38)
[2018-08-19] MEDS: FERROUS SO4 325 MG TABLET (FP) PO SCH ×3 (06:42→22:05)
[2018-08-19] MEDS: GABAPENTIN 300 MG CAPSULE (FP) PO SCH ×3 (06:42→22:02)
[2018-08-19] MEDS: hydrALAZINE HCL 50 MG TABLET (FP) PO SCH ×3 (06:42→22:02)
[2018-08-19] MEDS: INSULIN SLIDING SCALE (NOVOLOG) 1 VIAL SQ SCH ×4 (06:43→22:01)
[2018-08-19] MEDS: INSULIN (NOVOLOG MIX 70/30) 100 UNITS/ML MDV SQ SCH ×2 (06:47→16:09)
[2018-08-19 07:34] LABS: BASO % 0.2 % (0-2.0); EOS % 0.1 % (0-4.5); HEMATOCRIT 39.1 % (35.4-49); HEMOGLOBIN 12.1 GM/dL (11.7-16.9); LYMPH % 3.7 % (8-40); MCH 27.2 pg (25.7-33.7); MCHC 30.9 g/dl (32.0-35.9); MONO % 3.8 % (3.8-10.2); NEUT % 92.2 % (42.8-82.8); PLATELET COUNT 355 K/MM3 (134-434); RBC 4.44 M/mm3 (4.00-5.60); RDW 16.4 % (11.9-15.9); WHITE BLOOD COUNT 11.5 K/mm3 (4.0-10.0)
[2018-08-19 08:20] LABS: BILIRUBIN,TOTAL 0.7 mg/dL (0.2-1); CALCIUM 8.4 mg/dL (8.5-10.1); CREATININE 2.4 mg/dL (0.55-1.3); POTASSIUM 5.2 mmol/L (3.5-5.1); TOT PROT 6.4 g/dl (6.4-8.2)
[2018-08-19] MEDS ORDERED: cefTRIAXone SODIUM 1 GM VIAL ONE (09:42)
[2018-08-19] MEDS ORDERED: DEXTROSE 5%-WATER - 50 ML IVPB ONE (09:42)
[2018-08-19] MEDS: NIFEdipine E.R. 90 MG TABLET (FP) PO SCH (10:47)
[2018-08-19] MEDS: METOLAZONE 5 MG TABLET PO SCH (10:47)
[2018-08-19] MEDS: ASPIRIN 81 MG CHEWABLE TABLETS PO SCH (10:47)
[2018-08-19] MEDS: DOCUSATE SODIUM 100 MG CAPSULE (FP) PO SCH (10:47)
[2018-08-19] MEDS: ENOXAPARIN NA (PORCINE) 40 MG/0.4 ML DISP.SYRIN SQ SCH (10:47)
[2018-08-19] MEDS: TAMSULOSIN HCL 0.4 MG CAP PO SCH (10:47)
[2018-08-19] MEDS: BUDESONIDE/FORMETEROL FUMARATE 160/4.5 mcg INHALER IH SCH ×2 (10:48→22:05)
[2018-08-19] MEDS: CEFTRIAXONE 1 GM in DEXTROSE 5%-WATER - 50 ML IVPB SCH (10:48)
[2018-08-19] MEDS: AZITHROMYCIN IVPB 250 MG in DEXTROSE 5%-WATER - 250 ML IVPB SCH (10:48)
[2018-08-19 11:35] LABS: ANISOCYTOSIS 0; MACROCYTOSIS 0; PLATELET ESTIMATE NORMAL
--- NOTE | 2018-08-19 12:19 | PN ---
Progress Note (short form) - Note Progress Note: OOB to commode. NAD on 4 L NC O2. Breathing feels a little better but still with Dyspnea on minimal exertion. NIPPV support intermittently overnight. Intake & Output 08/16/18 08/17/18 08/18/18 08/19/18 23:59 23:59 23:59 23:59 Intake Total 20 1600 1610 240 Output Total 1100 6000 3950 1600 [facility] -0240 -4400 -2340 -1360 Weight 473 lb 14.4 oz 474 lb 3.2 oz 473 lb 474 lb 11.2 oz Last Vital Signs Temp Pulse Resp BP Pulse Ox 98 F 85 20 180/100 H 95 08/19/18 08:37 08/19/18 08:37 08/19/18 08:37 08/19/18 08:37 08/19/18 00:05 Active Medications Albuterol Sulfate (Ventolin 0.083% Nebulizer Soln -) 1 amp NEB Q1H PRN PRN Reason: SHORT OF BREATH/WHEEZING Albuterol/Ipratropium (Duoneb -) 1 amp NEB Q6H PRN PRN Reason: SHORTNESS OF BREATH Last Admin: 08/18/18 11:15 Dose: 1 amp Aspirin (Asa -) 81 mg PO DAILY [facility] Last Admin: 08/19/18 10:47 Dose: 81 mg Budesonide/Formoterol Fumarate (Symbicort 160/4.5mcg -) 1 puff IH BID [facility] Last Admin: 08/19/18 10:48 Dose: 1 puff Docusate Sodium (Colace -) 100 mg PO DAILY [facility] Last Admin: 08/19/18 10:47 Dose: 100 mg Enoxaparin Sodium (Lovenox -) 40 mg SQ DAILY [facility] Last Admin: 08/19/18 10:47 Dose: 40 mg Ferrous Sulfate (Feosol -) 325 mg PO TID [facility] Last Admin: 08/19/18 06:42 Dose: 325 mg Furosemide (Lasix Injection -) 60 mg IVPUSH BID@0600,1400 [facility] Last Admin: 08/19/18 06:42 Dose: 60 mg Gabapentin (Neurontin -) 300 mg PO TID [facility] Last Admin: 08/19/18 06:42 Dose: 300 mg Hydralazine HCl (Apresoline -) 50 mg PO TID [facility] Last Admin: 08/19/18 06:42 Dose: 50 mg Azithromycin 250 mg/ Dextrose 250 mls @ 250 mls/hr IVPB DAILY [facility] Last Admin: 08/19/18 10:48 Dose: 250 mls/hr Ceftriaxone Sodium 1 gm/ (Dextrose) 50 mls @ 100 mls/hr IVPB DAILY [facility]; Protocol Last Admin: 08/19/18 10:48 Dose: 100 mls/hr Insulin Aspart (Novolog Vial Sliding Scale -) 1 vial SQ ACHS [facility]; Protocol Last Admin: 08/19/18 06:43 Dose: 6 units Insulin Aspart (Novolog Mix 70/30 Vial) 40 units SQ BIDAC [facility] Last Admin: 08/19/18 06:47 Dose: 40 units Insulin Detemir (Levemir Vial) 25 units SQ HS [facility] Methylprednisolone Sodium Succinate (Solu-Medrol -) 40 mg IVPUSH Q12H [facility] Last Admin: 08/18/18 22:56 Dose: 40 mg Metolazone (Zaroxolyn -) 5 mg PO DAILY [facility] Last Admin: 08/19/18 10:47 Dose: 5 mg Nifedipine (Procardia Xl -) 90 mg PO DAILY [facility] Last Admin: 08/19/18 10:47 Dose: 90 mg Rosuvastatin Calcium (Crestor -) 5 mg PO HS [facility] Last Admin: 08/18/18 22:04 Dose: 5 mg Tamsulosin HCl (Flomax -) 0.4 mg PO DAILY@0830 [facility] Last Admin: 08/19/18 10:47 Dose: 0.4 mg Constitutional: Yes: Mildly tachypneic on NC O2 Eyes: Yes: Conjunctiva Clear HENT: Yes: Atraumatic Neck: Yes: Supple Cardiovascular: Yes: S1, S2 Respiratory: Yes: Diminished throughout Gastrointestinal: Yes: Soft, Abdomen, Obese Genitourinary: Yes: Ibrahim Present Musculoskeletal: Yes: WNL Edema: Yes Edema: LUE: 1+, RUE: 1+, LLE: 2+, RLE: 2+ Neurological: Yes: Oriented Psychiatric: Yes: Oriented Labs: Laboratory Results - last 24 hr 08/18/18 08/18/18 08/18/18 14:41 17:13 22:03 WBC RBC Hgb Hct MCV MCH MCHC RDW Plt Count MPV Absolute Neuts (auto) Neutrophils % Neutrophils % (Manual) Band Neutrophils % Lymphocytes % Lymphocytes % (Manual) Monocytes % Monocytes % (Manual) Eosinophils % Eosinophils % (Manual) Basophils % Basophils % (Manual) Myelocytes % (Man) Promyelocytes % (Man) Blast Cells % (Manual) Nucleated RBC % Metamyelocytes Hypochromia Platelet Estimate Polychromasia Poikilocytosis Anisocytosis Microcytosis Macrocytosis Sodium Potassium Chloride Carbon Dioxide Anion Gap BUN Creatinine Est GFR (CKD-EPI)AfAm Est GFR (CKD-EPI)NonAf POC Glucometer 291 370 304 Random Glucose Calcium Total Bilirubin AST ALT Alkaline Phosphatase Total Protein Albumin 08/19/18 08/19/18 08/19/18 05:30 05:30 06:36 WBC 11.5 H RBC 4.44 Hgb 12.1 Hct 39.1 MCV 88.0 MCH 27.2 MCHC 30.9 L RDW 16.4 H Plt Count 355 MPV 8.0 Absolute Neuts (auto) 10.6 H Neutrophils % 92.2 H Neutrophils % (Manual) 92.0 H Band Neutrophils % 0.0 Lymphocytes % 3.7 L Lymphocytes % (Manual) 4.0 L Monocytes % 3.8 Monocytes % (Manual) 4 Eosinophils % 0.1 D Eosinophils % (Manual) 0.0 Basophils % 0.2 Basophils % (Manual) 0.0 Myelocytes % (Man) 0 Promyelocytes % (Man) 0 Blast Cells % (Manual) 0 Nucleated RBC % 0 Metamyelocytes 0 Hypochromia 0 Platelet Estimate Normal Polychromasia 0 Poikilocytosis 0 Anisocytosis 0 Microcytosis 0 Macrocytosis 0 Sodium 138 Potassium 5.2 H Chloride 102 Carbon Dioxide 29 Anion Gap 7 L BUN 75 H Creatinine 2.4 H Est GFR (CKD-EPI)AfAm 35.38 Est GFR (CKD-EPI)NonAf 30.53 POC Glucometer 227 Random Glucose 240 H Calcium 8.4 L Total Bilirubin 0.7 AST 13 L ALT 35 Alkaline Phosphatase 98 Total Protein 6.4 Albumin 3.0 L 08/19/18 11:30 WBC RBC Hgb Hct MCV MCH MCHC RDW Plt Count MPV Absolute Neuts (auto) Neutrophils % Neutrophils % (Manual) Band Neutrophils % Lymphocytes % Lymphocytes % (Manual) Monocytes % Monocytes % (Manual) Eosinophils % Eosinophils % (Manual) Basophils % Basophils % (Manual) Myelocytes % (Man) Promyelocytes % (Man) Blast Cells % (Manual) Nucleated RBC % Metamyelocytes Hypochromia Platelet Estimate Polychromasia Poikilocytosis Anisocytosis Microcytosis Macrocytosis Sodium Potassium Chloride Carbon Dioxide Anion Gap BUN Creatinine Est GFR (CKD-EPI)AfAm Est GFR (CKD-EPI)NonAf POC Glucometer 212 Random Glucose Calcium Total Bilirubin AST ALT Alkaline Phosphatase Total Protein Albumin Problem List - Problems (1) CKD (chronic kidney disease) Code(s): N18.9 - CHRONIC KIDNEY DISEASE, UNSPECIFIED (2) COPD exacerbation Code(s): J44.1 - CHRONIC OBSTRUCTIVE PULMONARY DISEASE W (ACUTE) EXACERBATION (3) Acute exacerbation of CHF (congestive heart failure) Code(s): I50.9 - HEART FAILURE, UNSPECIFIED (4) Acute on chronic respiratory failure with hypoxia and hypercapnia Code(s): J96.21 - ACUTE AND CHRONIC RESPIRATORY FAILURE WITH HYPOXIA; J96.22 - ACUTE AND CHRONIC RESPIRATORY FAILURE WITH HYPERCAPNIA (5) Acute renal failure Code(s): N17.9 - ACUTE KIDNEY FAILURE, UNSPECIFIED (6) Diabetes Code(s): E11.9 - TYPE 2 DIABETES MELLITUS WITHOUT COMPLICATIONS (7) Hypertension Code(s): I10 - ESSENTIAL (PRIMARY) HYPERTENSION Qualifiers: Hypertension type: unspecified Qualified Code(s): I10 - Essential (primary ) hypertension (8) Morbid exogenous obesity Code(s): E66.01 - MORBID (SEVERE) OBESITY DUE TO EXCESS CALORIES (9) Morbid obesity Code(s): E66.01 - MORBID (SEVERE) OBESITY DUE TO EXCESS CALORIES (10) Obesity hypoventilation syndrome Code(s): E66.2 - MORBID (SEVERE) OBESITY WITH ALVEOLAR HYPOVENTILATION (11) Pulmonary HTN Code(s): I27.2 - OTHER SECONDARY PULMONARY HYPERTENSION * DO NOT USE * (12) Respiratory distress Code(s): R06.00 - DYSPNEA, UNSPECIFIED (13) Shortness of breath Code(s): R06.02 - SHORTNESS OF BREATH (14) Sleep apnea Code(s): G47.30 - SLEEP APNEA, UNSPECIFIED (15) Acute on chronic kidney failure Code(s): N17.9 - ACUTE KIDNEY FAILURE, UNSPECIFIED; N18.9 - CHRONIC KIDNEY DISEASE, UNSPECIFIED IMP ACUTE ON CHRONIC HYPOXEMIC RESPIRATORY FAILURE CHRONIC HYPOXEMIC/HYPERCAPNEIC RESPIRATORY FAILURE COPD EXACERBATION DIASTOLIC HF CHEST PAIN PULMONARY HTN COR PULMONALE OBESITY-HYPOVENTILATION SYNDROME ACUTE ON CHRONIC KIDNEY DISEASE HTN DM TATI PLAN NIPPV SUPPORT TOLERATED O2 TO MAINTAIN O2 SAT 88% TO 92% MEDROL ABX INHALED BRONCHODILATORS LASIX DAILY WT DVT PROPHYLAXIS MONITOR LYTES,RENAL FUNCTION STRICT I+OS DR OLIVAS
[2018-08-19] MEDS: methylPREDNISolone NA SUCC 40 MG/1 ML VIAL IVPUSH SCH ×2 (13:05→23:43)
--- NOTE | 2018-08-19 14:56 | PN ---
Progress Note, Physician History of Present Illness: Pt seen and examined at bedside. He is awake and alert. He does not feel much different than yesterday. - Current Medication List Current Medications: Active Medications Albuterol Sulfate (Ventolin 0.083% Nebulizer Soln -) 1 amp NEB Q1H PRN PRN Reason: SHORT OF BREATH/WHEEZING Albuterol/Ipratropium (Duoneb -) 1 amp NEB Q6H PRN PRN Reason: SHORTNESS OF BREATH Last Admin: 08/18/18 11:15 Dose: 1 amp Aspirin (Asa -) 81 mg PO DAILY [facility] Last Admin: 08/19/18 10:47 Dose: 81 mg Budesonide/Formoterol Fumarate (Symbicort 160/4.5mcg -) 1 puff IH BID [facility] Last Admin: 08/19/18 10:48 Dose: 1 puff Docusate Sodium (Colace -) 100 mg PO DAILY [facility] Last Admin: 08/19/18 10:47 Dose: 100 mg Enoxaparin Sodium (Lovenox -) 40 mg SQ DAILY [facility] Last Admin: 08/19/18 10:47 Dose: 40 mg Ferrous Sulfate (Feosol -) 325 mg PO TID [facility] Last Admin: 08/19/18 13:38 Dose: 325 mg Furosemide (Lasix Injection -) 60 mg IVPUSH BID@0600,1400 [facility] Last Admin: 08/19/18 13:38 Dose: 60 mg Gabapentin (Neurontin -) 300 mg PO TID [facility] Last Admin: 08/19/18 13:38 Dose: 300 mg Hydralazine HCl (Apresoline -) 50 mg PO TID [facility] Last Admin: 08/19/18 13:39 Dose: 50 mg Azithromycin 250 mg/ Dextrose 250 mls @ 250 mls/hr IVPB DAILY [facility] Last Admin: 08/19/18 10:48 Dose: 250 mls/hr Ceftriaxone Sodium 1 gm/ (Dextrose) 50 mls @ 100 mls/hr IVPB DAILY [facility]; Protocol Last Admin: 08/19/18 10:48 Dose: 100 mls/hr Insulin Aspart (Novolog Vial Sliding Scale -) 1 vial SQ ACHS [facility]; Protocol Last Admin: 08/19/18 12:51 Dose: 6 units Insulin Aspart (Novolog Mix 70/30 Vial) 40 units SQ BIDAC [facility] Last Admin: 08/19/18 06:47 Dose: 40 units Insulin Detemir (Levemir Vial) 25 units SQ [facility] Methylprednisolone Sodium Succinate (Solu-Medrol -) 40 mg IVPUSH Q12H [facility] Last Admin: 08/19/18 13:05 Dose: 40 mg Metolazone (Zaroxolyn -) 5 mg PO DAILY [facility] Last Admin: 08/19/18 10:47 Dose: 5 mg Nifedipine (Procardia Xl -) 90 mg PO DAILY [facility] Last Admin: 08/19/18 10:47 Dose: 90 mg Rosuvastatin Calcium (Crestor -) 5 mg PO HS [facility] Last Admin: 08/18/18 22:04 Dose: 5 mg Tamsulosin HCl (Flomax -) 0.4 mg PO DAILY@0830 [facility] Last Admin: 08/19/18 10:47 Dose: 0.4 mg - Objective Vital Signs: Vital Signs Temperature 98 F 08/19/18 08:37 Pulse Rate 85 08/19/18 08:37 Respiratory Rate 20 08/19/18 08:37 Blood Pressure 180/100 H 08/19/18 08:37 O2 Sat by Pulse Oximetry (%) 97 08/19/18 10:00 Constitutional: Yes: Calm Eyes: Yes: Conjunctiva Clear HENT: Yes: Atraumatic Neck: Yes: Supple Cardiovascular: Yes: S1, S2 Gastrointestinal: Yes: Soft, Abdomen, Obese Genitourinary: Yes: Ibrahim Present Edema: Yes Edema: LLE: 2+, RLE: 2+ Neurological: Yes: Oriented Psychiatric: Yes: Oriented Labs: CBC, BMP 08/19/18 05:30 08/19/18 05:30 INR, PTT INR 1.10 (0.83-1.09) H 08/12/18 21:00 Problem List - Problems (1) CKD (chronic kidney disease) Code(s): N18.9 - CHRONIC KIDNEY DISEASE, UNSPECIFIED (2) COPD exacerbation Code(s): J44.1 - CHRONIC OBSTRUCTIVE PULMONARY DISEASE W (ACUTE) EXACERBATION (3) Acute exacerbation of CHF (congestive heart failure) Code(s): I50.9 - HEART FAILURE, UNSPECIFIED Assessment/Plan Current Medications Generic Name Dose Route Start Last Admin Trade Name Freq PRN Reason Stop Dose Admin Albuterol Sulfate 1 amp 08/15/18 10:15 Ventolin 0.083% Nebulizer Soln - NEB Q1H PRN SHORT OF BREATH/WHEEZING Albuterol/Ipratropium 1 amp 08/13/18 02:56 08/18/18 11:15 Duoneb - NEB 1 amp Q6H PRN Administration SHORTNESS OF BREATH Aspirin 81 mg 08/13/18 10:00 08/19/18 10:47 Asa - PO 81 mg DAILY [facility] Administration Budesonide/Formoterol Fumarate 1 puff 08/13/18 10:00 08/19/18 10:48 Symbicort 160/4.5mcg - IH 1 puff BID [facility] Administration Docusate Sodium 100 mg 08/13/18 10:00 08/19/18 10:47 Colace - PO 100 mg DAILY [facility] Administration Enoxaparin Sodium 40 mg 08/16/18 10:00 08/19/18 10:47 Lovenox - SQ 40 mg DAILY [facility] Administration Ferrous Sulfate 325 mg 08/13/18 06:00 08/19/18 13:38 Feosol - PO 325 mg TID [facility] Administration Furosemide 60 mg 08/17/18 14:00 08/19/18 13:38 Lasix Injection - IVPUSH 60 mg BID@0600,1400 [facility] Administration Gabapentin 300 mg 08/13/18 06:00 08/19/18 13:38 Neurontin - PO 300 mg TID [facility] Administration Hydralazine HCl 50 mg 08/16/18 10:38 08/19/18 13:39 Apresoline - PO 50 mg TID [facility] Administration Azithromycin 250 mg/ Dextrose 250 mls @ 250 mls/hr 08/13/18 10:00 08/19/18 10 :48 IVPB 250 mls/hr DAILY [facility] Administration Ceftriaxone Sodium 1 gm/ 50 mls @ 100 mls/hr 08/13/18 10:00 08/19/18 10:48 Dextrose IVPB 100 mls/hr DAILY [facility] Administration Protocol Insulin Aspart 1 vial 08/18/18 16:30 08/19/18 12:51 Novolog Vial Sliding Scale - SQ 6 units ACHS [facility] Administration Protocol Insulin Aspart 40 units 08/18/18 22:49 08/19/18 06:47 Novolog Mix 70/30 Vial SQ 40 units BIDAC [facility] Administration Insulin Detemir 25 units 08/18/18 22:50 Levemir Vial SQ HS [facility] Methylprednisolone Sodium Succinate 40 mg 08/17/18 11:30 08/19/18 13:05 Solu-Medrol - IVPUSH 40 mg Q12H [facility] Administration Metolazone 5 mg 08/17/18 10:00 08/19/18 10:47 Zaroxolyn - PO 5 mg DAILY [facility] Administration Nifedipine 90 mg 08/13/18 10:00 08/19/18 10:47 Procardia Xl - PO 90 mg DAILY [facility] Administration Rosuvastatin Calcium 5 mg 08/13/18 22:00 08/18/18 22:04 Crestor - PO 5 mg HS [facility] Administration Sodium Zirconium Cyclosilicate 10 gm 08/19/18 15:00 Lokelma PO DAILY [facility] Tamsulosin HCl 0.4 mg 08/13/18 08:30 08/19/18 10:47 Flomax - PO 0.4 mg DAILY@0830 [facility] Administration Impression 1. CKD 2. dyspnea 3. morbid obesity 4. DM 5. HTN 6. likely sleep apnea 7. chest pain 8. hyperkalemia Plan - increase hydralazine dose - cont lasix and metolazone - repeat labs in am - will give lokelma - losartan once potassium stable - cardio follow up - recommend weight loss
[2018-08-19] MEDS: ALBUTEROL SO4 2.5/IPRATROPIUM 0.5 INH SOL 3 ML VIAL.NEB. NEB PRN (15:20)
[2018-08-19] MEDS: SODIUM ZIRCONIUM CYCLOSILICATE (LOKELMA) 5 GM PACKET PO SCH (16:08)
[2018-08-19] MEDS ORDERED: traMADol HCL 50 MG TABLET PO ONE ×3 (17:35→20:15)
--- NOTE | 2018-08-19 20:28 | PN ---
Progress Note, Physician History of Present Illness: Pt SOB and not ambulating - Current Medication List Current Medications: Active Medications Albuterol Sulfate (Ventolin 0.083% Nebulizer Soln -) 1 amp NEB Q1H PRN PRN Reason: SHORT OF BREATH/WHEEZING Albuterol/Ipratropium (Duoneb -) 1 amp NEB Q6H PRN PRN Reason: SHORTNESS OF BREATH Last Admin: 08/19/18 15:20 Dose: 1 amp Aspirin (Asa -) 81 mg PO DAILY [facility] Last Admin: 08/19/18 10:47 Dose: 81 mg Budesonide/Formoterol Fumarate (Symbicort 160/4.5mcg -) 1 puff IH BID [facility] Last Admin: 08/19/18 10:48 Dose: 1 puff Docusate Sodium (Colace -) 100 mg PO DAILY [facility] Last Admin: 08/19/18 10:47 Dose: 100 mg Enoxaparin Sodium (Lovenox -) 40 mg SQ DAILY [facility] Last Admin: 08/19/18 10:47 Dose: 40 mg Ferrous Sulfate (Feosol -) 325 mg PO TID [facility] Last Admin: 08/19/18 13:38 Dose: 325 mg Furosemide (Lasix Injection -) 60 mg IVPUSH BID@0600,1400 [facility] Last Admin: 08/19/18 13:38 Dose: 60 mg Gabapentin (Neurontin -) 300 mg PO TID [facility] Last Admin: 08/19/18 13:38 Dose: 300 mg Hydralazine HCl (Apresoline -) 100 mg PO TID [facility] Azithromycin 250 mg/ Dextrose 250 mls @ 250 mls/hr IVPB DAILY [facility] Last Admin: 08/19/18 10:48 Dose: 250 mls/hr Ceftriaxone Sodium 1 gm/ (Dextrose) 50 mls @ 100 mls/hr IVPB DAILY [facility]; Protocol Last Admin: 08/19/18 10:48 Dose: 100 mls/hr Insulin Aspart (Novolog Vial Sliding Scale -) 1 vial SQ ACHS [facility]; Protocol Last Admin: 08/19/18 17:53 Dose: 5 units Insulin Aspart (Novolog Mix 70/30 Vial) 40 units SQ BIDAC [facility] Last Admin: 08/19/18 16:09 Dose: 40 units Insulin Detemir (Levemir Vial) 25 units SQ HS [facility] Methylprednisolone Sodium Succinate (Solu-Medrol -) 40 mg IVPUSH Q12H [facility] Last Admin: 08/19/18 13:05 Dose: 40 mg Metolazone (Zaroxolyn -) 5 mg PO DAILY [facility] Last Admin: 08/19/18 10:47 Dose: 5 mg Nifedipine (Procardia Xl -) 90 mg PO DAILY [facility] Last Admin: 08/19/18 10:47 Dose: 90 mg Rosuvastatin Calcium (Crestor -) 5 mg PO HS [facility] Last Admin: 08/18/18 22:04 Dose: 5 mg Sodium Zirconium Cyclosilicate (Lokelma) 10 gm PO DAILY [facility] Last Admin: 08/19/18 16:08 Dose: 10 gm Tamsulosin HCl (Flomax -) 0.4 mg PO DAILY@0830 [facility] Last Admin: 08/19/18 10:47 Dose: 0.4 mg - Objective Vital Signs: Vital Signs Temperature 97.8 F 08/19/18 17:00 Pulse Rate 98 H 08/19/18 17:00 Respiratory Rate 20 08/19/18 17:00 Blood Pressure 152/92 08/19/18 17:00 O2 Sat by Pulse Oximetry (%) 97 08/19/18 10:00 Constitutional: Yes: Well Nourished, Obese Neck: Yes: WNL, Supple Cardiovascular: Yes: WNL, Regular Rate and Rhythm Respiratory: Yes: Diminished Gastrointestinal: Yes: WNL, Normal Bowel Sounds, Soft, Abdomen, Obese Labs: CBC, BMP 08/19/18 05:30 08/19/18 05:30 INR, PTT INR 1.10 (0.83-1.09) H 08/12/18 21:00 Problem List - Problems (1) Diastolic CHF Assessment/Plan: Acute on chronic diastolic heart failure Cont IV lasix Cont diuresis Code(s): I50.30 - UNSPECIFIED DIASTOLIC (CONGESTIVE) HEART FAILURE (2) COPD exacerbation Assessment/Plan: Cont IV sterpoids Cont nebulizers Code(s): J44.1 - CHRONIC OBSTRUCTIVE PULMONARY DISEASE W (ACUTE) EXACERBATION (3) Acute on chronic kidney failure Assessment/Plan: Cont to monitor labs Code(s): N17.9 - ACUTE KIDNEY FAILURE, UNSPECIFIED; N18.9 - CHRONIC KIDNEY DISEASE, UNSPECIFIED (4) Acute on chronic respiratory failure with hypoxia and hypercapnia Code(s): J96.21 - ACUTE AND CHRONIC RESPIRATORY FAILURE WITH HYPOXIA; J96.22 - ACUTE AND CHRONIC RESPIRATORY FAILURE WITH HYPERCAPNIA (5) Diabetes Assessment/Plan: Cont sliding scale w/ coverage Code(s): E11.9 - TYPE 2 DIABETES MELLITUS WITHOUT COMPLICATIONS (6) Hyperlipidemia Assessment/Plan: Cont statin Code(s): E78.5 - HYPERLIPIDEMIA, UNSPECIFIED (7) Hypertension Assessment/Plan: BP stable Cont antihypertensives Code(s): I10 - ESSENTIAL (PRIMARY) HYPERTENSION Qualifiers: Hypertension type: unspecified Qualified Code(s): I10 - Essential (primary ) hypertension (8) Morbid obesity Code(s): E66.01 - MORBID (SEVERE) OBESITY DUE TO EXCESS CALORIES (9) Sleep apnea Code(s): G47.30 - SLEEP APNEA, UNSPECIFIED
[2018-08-19] MEDS: ROSUVASTATIN CA 5 MG TABLET (FP) PO SCH (22:03)
[2018-08-19] MEDS: INSULIN (LEVEMIR) 100 UNITS/ML UNITS SQ SCH (22:04)
[2018-08-20] MEDS: hydrALAZINE HCL 50 MG TABLET (FP) PO SCH ×3 (07:03→23:26)
[2018-08-20] MEDS: FUROSEMIDE 40 MG/4 ML INJECTABLE VIAL IVPUSH SCH ×2 (07:03→13:29)
[2018-08-20] MEDS: FERROUS SO4 325 MG TABLET (FP) PO SCH ×3 (07:03→23:25)
[2018-08-20] MEDS: GABAPENTIN 300 MG CAPSULE (FP) PO SCH ×3 (07:03→23:26)
[2018-08-20] MEDS: INSULIN SLIDING SCALE (NOVOLOG) 1 VIAL SQ SCH ×4 (07:04→23:25)
[2018-08-20] MEDS: INSULIN (NOVOLOG MIX 70/30) 100 UNITS/ML MDV SQ SCH ×2 (07:04→17:24)
[2018-08-20 08:53] LABS: BILIRUBIN,TOTAL 0.8 mg/dL (0.2-1); CALCIUM 8.8 mg/dL (8.5-10.1); CREATININE 2.4 mg/dL (0.55-1.3); POTASSIUM 4.9 mmol/L (3.5-5.1); TOT PROT 6.5 g/dl (6.4-8.2)
[2018-08-20] MEDS: BUDESONIDE/FORMETEROL FUMARATE 160/4.5 mcg INHALER IH SCH ×2 (09:00→23:27)
[2018-08-20] MEDS: SODIUM ZIRCONIUM CYCLOSILICATE (LOKELMA) 5 GM PACKET PO SCH (09:00)
[2018-08-20] MEDS: TAMSULOSIN HCL 0.4 MG CAP PO SCH (09:30)
[2018-08-20] MEDS ORDERED: DEXTROSE 5%-WATER - 50 ML IVPB ONE (10:00)
[2018-08-20] MEDS ORDERED: cefTRIAXone SODIUM 1 GM VIAL ONE (10:00)
[2018-08-20] MEDS: METOLAZONE 5 MG TABLET PO SCH (10:44)
[2018-08-20] MEDS: DOCUSATE SODIUM 100 MG CAPSULE (FP) PO SCH (10:45)
[2018-08-20] MEDS ORDERED: ISOSORBIDE MONONITRATE 30 MG TAB.SR.24H (FP) PO SCH (10:45)
[2018-08-20] MEDS: ASPIRIN 81 MG CHEWABLE TABLETS PO SCH (10:45)
[2018-08-20] MEDS: methylPREDNISolone NA SUCC 40 MG/1 ML VIAL IVPUSH SCH ×2 (10:45→23:27)
[2018-08-20] MEDS: NIFEdipine E.R. 90 MG TABLET (FP) PO SCH (10:45)
[2018-08-20] MEDS: ENOXAPARIN NA (PORCINE) 40 MG/0.4 ML DISP.SYRIN SQ SCH (10:56)
--- NOTE | 2018-08-20 11:15 | PN ---
Progress Note, Physician History of Present Illness: Pt seen and examined at bedside. He is awake and alert. he feels edema is improving. - Current Medication List Current Medications: Active Medications Albuterol/Ipratropium (Duoneb -) 1 amp NEB Q6H PRN PRN Reason: SHORTNESS OF BREATH Last Admin: 08/19/18 15:20 Dose: 1 amp Aspirin (Asa -) 81 mg PO DAILY [facility] Last Admin: 08/20/18 10:45 Dose: 81 mg Budesonide/Formoterol Fumarate (Symbicort 160/4.5mcg -) 1 puff IH BID [facility] Last Admin: 08/19/18 22:05 Dose: 1 puff Docusate Sodium (Colace -) 100 mg PO DAILY [facility] Last Admin: 08/20/18 10:45 Dose: 100 mg Enoxaparin Sodium (Lovenox -) 40 mg SQ DAILY [facility] Last Admin: 08/20/18 10:56 Dose: 40 mg Ferrous Sulfate (Feosol -) 325 mg PO TID [facility] Last Admin: 08/20/18 07:03 Dose: 325 mg Furosemide (Lasix Injection -) 60 mg IVPUSH BID@0600,1400 [facility] Last Admin: 08/20/18 07:03 Dose: 60 mg Gabapentin (Neurontin -) 300 mg PO TID [facility] Last Admin: 08/20/18 07:03 Dose: 300 mg Hydralazine HCl (Apresoline -) 100 mg PO TID [facility] Last Admin: 08/20/18 07:03 Dose: 100 mg Insulin Aspart (Novolog Vial Sliding Scale -) 1 vial SQ ACHS [facility]; Protocol Last Admin: 08/20/18 07:04 Dose: 5 units Insulin Aspart (Novolog Mix 70/30 Vial) 40 units SQ BIDAC [facility] Last Admin: 08/20/18 07:04 Dose: 40 units Insulin Detemir (Levemir Vial) 25 units SQ HS [facility] Last Admin: 08/19/18 22:04 Dose: 25 units Isosorbide Mononitrate (Imdur -) 30 mg PO DAILY [facility] Last Admin: 08/20/18 10:58 Dose: 30 mg Methylprednisolone Sodium Succinate (Solu-Medrol -) 40 mg IVPUSH Q12H [facility] Last Admin: 08/20/18 10:45 Dose: 40 mg Metolazone (Zaroxolyn -) 5 mg PO DAILY [facility] Last Admin: 08/20/18 10:44 Dose: 5 mg Nifedipine (Procardia Xl -) 90 mg PO DAILY [facility] Last Admin: 08/20/18 10:45 Dose: 90 mg Rosuvastatin Calcium (Crestor -) 5 mg PO HS [facility] Last Admin: 08/19/18 22:03 Dose: 5 mg Sodium Zirconium Cyclosilicate (Lokelma) 10 gm PO DAILY [facility] Last Admin: 08/20/18 09:00 Dose: 10 gm Tamsulosin HCl (Flomax -) 0.4 mg PO DAILY@0830 [facility] Last Admin: 08/20/18 09:30 Dose: 0.4 mg - Objective Vital Signs: Vital Signs Temperature 97.6 F 08/20/18 06:00 Pulse Rate 85 08/20/18 06:00 Respiratory Rate 20 08/20/18 06:00 Blood Pressure 154/79 08/20/18 06:00 O2 Sat by Pulse Oximetry (%) 91 L 08/20/18 02:50 Constitutional: Yes: Calm Eyes: Yes: Conjunctiva Clear HENT: Yes: Atraumatic Neck: Yes: Supple Cardiovascular: Yes: S1, S2 Respiratory: Yes: CTA Bilaterally, On Nasal O2 Gastrointestinal: Yes: Soft, Abdomen, Obese Genitourinary: Yes: Ibrahim Present Musculoskeletal: Yes: WNL Edema: Yes Edema: LLE: 2+, RLE: 2+ Neurological: Yes: Oriented Psychiatric: Yes: Oriented Labs: CBC, BMP 08/19/18 05:30 08/20/18 05:48 INR, PTT INR 1.10 (0.83-1.09) H 08/12/18 21:00 Problem List - Problems (1) CKD (chronic kidney disease) Code(s): N18.9 - CHRONIC KIDNEY DISEASE, UNSPECIFIED (2) COPD exacerbation Code(s): J44.1 - CHRONIC OBSTRUCTIVE PULMONARY DISEASE W (ACUTE) EXACERBATION (3) Acute exacerbation of CHF (congestive heart failure) Code(s): I50.9 - HEART FAILURE, UNSPECIFIED Assessment/Plan Current Medications Generic Name Dose Route Start Last Admin Trade Name Freq PRN Reason Stop Dose Admin Albuterol/Ipratropium 1 amp 08/13/18 02:56 08/19/18 15:20 Duoneb - NEB 1 amp Q6H PRN Administration SHORTNESS OF BREATH Aspirin 81 mg 08/13/18 10:00 08/20/18 10:45 Asa - PO 81 mg DAILY [facility] Administration Budesonide/Formoterol Fumarate 1 puff 08/13/18 10:00 08/19/18 22:05 Symbicort 160/4.5mcg - IH 1 puff BID [facility] Administration Docusate Sodium 100 mg 08/13/18 10:00 08/20/18 10:45 Colace - PO 100 mg DAILY [facility] Administration Enoxaparin Sodium 40 mg 08/16/18 10:00 08/20/18 10:56 Lovenox - SQ 40 mg DAILY [facility] Administration Ferrous Sulfate 325 mg 08/13/18 06:00 08/20/18 07:03 Feosol - PO 325 mg TID [facility] Administration Furosemide 60 mg 08/17/18 14:00 08/20/18 07:03 Lasix Injection - IVPUSH 60 mg BID@0600,1400 [facility] Administration Gabapentin 300 mg 08/13/18 06:00 08/20/18 07:03 Neurontin - PO 300 mg TID [facility] Administration Hydralazine HCl 100 mg 08/19/18 22:00 08/20/18 07:03 Apresoline - PO 100 mg TID [facility] Administration Insulin Aspart 1 vial 08/18/18 16:30 08/20/18 07:04 Novolog Vial Sliding Scale - SQ 5 units ACHS [facility] Administration Protocol Insulin Aspart 40 units 08/18/18 22:49 08/20/18 07:04 Novolog Mix 70/30 Vial SQ 40 units BIDAC [facility] Administration Insulin Detemir 25 units 08/18/18 22:50 08/19/18 22:04 Levemir Vial SQ 25 units HS [facility] Administration Isosorbide Mononitrate 30 mg 08/20/18 10:45 08/20/18 10:58 Imdur - PO 30 mg DAILY [facility] Administration Methylprednisolone Sodium Succinate 40 mg 08/17/18 11:30 08/20/18 10:45 Solu-Medrol - IVPUSH 40 mg Q12H [facility] Administration Metolazone 5 mg 08/17/18 10:00 08/20/18 10:44 Zaroxolyn - PO 5 mg DAILY [facility] Administration Nifedipine 90 mg 08/13/18 10:00 08/20/18 10:45 Procardia Xl - PO 90 mg DAILY [facility] Administration Rosuvastatin Calcium 5 mg 08/13/18 22:00 08/19/18 22:03 Crestor - PO 5 mg HS [facility] Administration Sodium Zirconium Cyclosilicate 10 gm 08/19/18 15:00 08/20/18 09:00 Lokelma PO 10 gm DAILY [facility] Administration Tamsulosin HCl 0.4 mg 08/13/18 08:30 08/20/18 09:30 Flomax - PO 0.4 mg DAILY@0830 [facility] Administration Impression 1. CKD 2. dyspnea 3. morbid obesity 4. DM 5. HTN 6. likely sleep apnea 7. chest pain 8. hyperkalemia Plan - potassium improved - cont lasix iv and metolazone - pt responded to lokelma - check labs daily - increase dose of imdur - losartan once potassium stable - cardio follow up - recommend weight loss
--- NOTE | 2018-08-20 11:58 | PN ---
Progress Note, Physician History of Present Illness: PULMONARY ALERT,COMFORTABLE AT REST ON NASAL CANNULA,+COELHO. PT USING BIPA AT NIGHT - Current Medication List Current Medications: Active Medications Albuterol/Ipratropium (Duoneb -) 1 amp NEB Q6H PRN PRN Reason: SHORTNESS OF BREATH Last Admin: 08/19/18 15:20 Dose: 1 amp Aspirin (Asa -) 81 mg PO DAILY [facility] Last Admin: 08/20/18 10:45 Dose: 81 mg Budesonide/Formoterol Fumarate (Symbicort 160/4.5mcg -) 1 puff IH BID [facility] Last Admin: 08/19/18 22:05 Dose: 1 puff Docusate Sodium (Colace -) 100 mg PO DAILY [facility] Last Admin: 08/20/18 10:45 Dose: 100 mg Enoxaparin Sodium (Lovenox -) 40 mg SQ DAILY [facility] Last Admin: 08/20/18 10:56 Dose: 40 mg Ferrous Sulfate (Feosol -) 325 mg PO TID [facility] Last Admin: 08/20/18 07:03 Dose: 325 mg Furosemide (Lasix Injection -) 60 mg IVPUSH BID@0600,1400 [facility] Last Admin: 08/20/18 07:03 Dose: 60 mg Gabapentin (Neurontin -) 300 mg PO TID [facility] Last Admin: 08/20/18 07:03 Dose: 300 mg Hydralazine HCl (Apresoline -) 100 mg PO TID [facility] Last Admin: 08/20/18 07:03 Dose: 100 mg Insulin Aspart (Novolog Vial Sliding Scale -) 1 vial SQ ACHS [facility]; Protocol Last Admin: 08/20/18 07:04 Dose: 5 units Insulin Aspart (Novolog Mix 70/30 Vial) 40 units SQ BIDAC [facility] Last Admin: 08/20/18 07:04 Dose: 40 units Insulin Detemir (Levemir Vial) 25 units SQ HS [facility] Last Admin: 08/19/18 22:04 Dose: 25 units Isosorbide Mononitrate (Imdur -) 60 mg PO DAILY [facility] Methylprednisolone Sodium Succinate (Solu-Medrol -) 40 mg IVPUSH Q12H [facility] Last Admin: 08/20/18 10:45 Dose: 40 mg Metolazone (Zaroxolyn -) 5 mg PO DAILY [facility] Last Admin: 08/20/18 10:44 Dose: 5 mg Nifedipine (Procardia Xl -) 90 mg PO DAILY [facility] Last Admin: 08/20/18 10:45 Dose: 90 mg Rosuvastatin Calcium (Crestor -) 5 mg PO HS [facility] Last Admin: 08/19/18 22:03 Dose: 5 mg Tamsulosin HCl (Flomax -) 0.4 mg PO DAILY@0830 [facility] Last Admin: 08/20/18 09:30 Dose: 0.4 mg - Objective Vital Signs: Vital Signs Temperature 97.6 F 08/20/18 06:00 Pulse Rate 85 08/20/18 06:00 Respiratory Rate 20 08/20/18 06:00 Blood Pressure 154/79 08/20/18 06:00 O2 Sat by Pulse Oximetry (%) 91 L 08/20/18 02:50 Constitutional: Yes: Calm, Obese Eyes: Yes: WNL HENT: Yes: WNL Neck: Yes: WNL Cardiovascular: Yes: Regular Rate and Rhythm, S1, S2 Respiratory: Yes: Diminished Gastrointestinal: Yes: Soft, Abdomen, Obese Extremities: Yes: WNL Edema: Yes Labs: CBC, BMP 08/19/18 05:30 08/20/18 05:48 INR, PTT INR 1.10 (0.83-1.09) H 08/12/18 21:00 Problem List - Problems (1) CKD (chronic kidney disease) Code(s): N18.9 - CHRONIC KIDNEY DISEASE, UNSPECIFIED (2) COPD exacerbation Code(s): J44.1 - CHRONIC OBSTRUCTIVE PULMONARY DISEASE W (ACUTE) EXACERBATION (3) Acute exacerbation of CHF (congestive heart failure) Code(s): I50.9 - HEART FAILURE, UNSPECIFIED (4) Acute on chronic respiratory failure with hypoxia and hypercapnia Code(s): J96.21 - ACUTE AND CHRONIC RESPIRATORY FAILURE WITH HYPOXIA; J96.22 - ACUTE AND CHRONIC RESPIRATORY FAILURE WITH HYPERCAPNIA (5) Acute renal failure Code(s): N17.9 - ACUTE KIDNEY FAILURE, UNSPECIFIED (6) Diabetes Code(s): E11.9 - TYPE 2 DIABETES MELLITUS WITHOUT COMPLICATIONS (7) Hypertension Code(s): I10 - ESSENTIAL (PRIMARY) HYPERTENSION Qualifiers: Hypertension type: unspecified Qualified Code(s): I10 - Essential (primary ) hypertension (8) Morbid exogenous obesity Code(s): E66.01 - MORBID (SEVERE) OBESITY DUE TO EXCESS CALORIES (9) Morbid obesity Code(s): E66.01 - MORBID (SEVERE) OBESITY DUE TO EXCESS CALORIES (10) Obesity hypoventilation syndrome Code(s): E66.2 - MORBID (SEVERE) OBESITY WITH ALVEOLAR HYPOVENTILATION (11) Pulmonary HTN Code(s): I27.2 - OTHER SECONDARY PULMONARY HYPERTENSION * DO NOT USE * (12) Respiratory distress Code(s): R06.00 - DYSPNEA, UNSPECIFIED (13) Shortness of breath Code(s): R06.02 - SHORTNESS OF BREATH (14) Sleep apnea Code(s): G47.30 - SLEEP APNEA, UNSPECIFIED (15) Acute on chronic kidney failure Code(s): N17.9 - ACUTE KIDNEY FAILURE, UNSPECIFIED; N18.9 - CHRONIC KIDNEY DISEASE, UNSPECIFIED Assessment/Plan IMP ACUTE ON CHRONIC HYPOXEMIC RESPIRATORY FAILURE IMPROVING CHRONIC HYPOXEMIC/HYPERCAPNEIC RESPIRATORY FAILURE COPD EXACERBATION IMPROVING DIASTOLIC HF CHEST PAIN PULMONARY HTN COR PULMONALE OBESITY-HYPOVENTILATION SYNDROME ACUTE ON CHRONIC KIDNEY DISEASE HTN DM TATI PLAN NIPPV TO HELP REDUCE WORK OF BREATHING O2 TO MAINTAIN O2 SAT 90% OR GREATER MEDROL TAPER BIPAP AT NIGHT AND PRN ABX INHALED BRONCHODILATORS LASIX DAILY WT DVT PROPHYLAXIS MONITOR LYTES,RENAL FUNCTION STRICT I+OS F/U ABGS DR SALVADOR Problem List - Problems (1) CKD (chronic kidney disease) Code(s): N18.9 - CHRONIC KIDNEY DISEASE, UNSPECIFIED (2) COPD exacerbation Code(s): J44.1 - CHRONIC OBSTRUCTIVE PULMONARY DISEASE W (ACUTE) EXACERBATION (3) Acute exacerbation of CHF (congestive heart failure) Code(s): I50.9 - HEART FAILURE, UNSPECIFIED (4) Acute on chronic respiratory failure with hypoxia and hypercapnia Code(s): J96.21 - ACUTE AND CHRONIC RESPIRATORY FAILURE WITH HYPOXIA; J96.22 - ACUTE AND CHRONIC RESPIRATORY FAILURE WITH HYPERCAPNIA (5) Acute renal failure Code(s): N17.9 - ACUTE KIDNEY FAILURE, UNSPECIFIED (6) Diabetes Code(s): E11.9 - TYPE 2 DIABETES MELLITUS WITHOUT COMPLICATIONS (7) Hypertension Code(s): I10 - ESSENTIAL (PRIMARY) HYPERTENSION Qualifiers: Hypertension type: unspecified Qualified Code(s): I10 - Essential (primary ) hypertension (8) Morbid exogenous obesity Code(s): E66.01 - MORBID (SEVERE) OBESITY DUE TO EXCESS CALORIES (9) Morbid obesity Code(s): E66.01 - MORBID (SEVERE) OBESITY DUE TO EXCESS CALORIES (10) Obesity hypoventilation syndrome Code(s): E66.2 - MORBID (SEVERE) OBESITY WITH ALVEOLAR HYPOVENTILATION (11) Pulmonary HTN Code(s): I27.2 - OTHER SECONDARY PULMONARY HYPERTENSION * DO NOT USE * (12) Respiratory distress Code(s): R06.00 - DYSPNEA, UNSPECIFIED (13) Shortness of breath Code(s): R06.02 - SHORTNESS OF BREATH (14) Sleep apnea Code(s): G47.30 - SLEEP APNEA, UNSPECIFIED (15) Acute on chronic kidney failure Code(s): N17.9 - ACUTE KIDNEY FAILURE, UNSPECIFIED; N18.9 - CHRONIC KIDNEY DISEASE, UNSPECIFIED
--- NOTE | 2018-08-20 20:36 | PN ---
Progress Note, Physician - Current Medication List Current Medications: Active Medications Albuterol/Ipratropium (Duoneb -) 1 amp NEB Q6H PRN PRN Reason: SHORTNESS OF BREATH Last Admin: 08/19/18 15:20 Dose: 1 amp Aspirin (Asa -) 81 mg PO DAILY [facility] Last Admin: 08/20/18 10:45 Dose: 81 mg Budesonide/Formoterol Fumarate (Symbicort 160/4.5mcg -) 1 puff IH BID [facility] Last Admin: 08/20/18 09:00 Dose: 1 puff Docusate Sodium (Colace -) 100 mg PO DAILY [facility] Last Admin: 08/20/18 10:45 Dose: 100 mg Enoxaparin Sodium (Lovenox -) 40 mg SQ DAILY [facility] Last Admin: 08/20/18 10:56 Dose: 40 mg Ferrous Sulfate (Feosol -) 325 mg PO TID [facility] Last Admin: 08/20/18 13:29 Dose: 325 mg Furosemide (Lasix Injection -) 60 mg IVPUSH BID@0600,1400 [facility] Last Admin: 08/20/18 13:29 Dose: 60 mg Gabapentin (Neurontin -) 300 mg PO TID [facility] Last Admin: 08/20/18 13:29 Dose: 300 mg Hydralazine HCl (Apresoline -) 100 mg PO TID [facility] Last Admin: 08/20/18 13:29 Dose: 100 mg Insulin Aspart (Novolog Vial Sliding Scale -) 1 vial SQ [facility]; Protocol Last Admin: 08/20/18 17:30 Dose: 6 units Insulin Aspart (Novolog Mix 70/30 Vial) 40 units SQ BIDAC [facility] Last Admin: 08/20/18 17:24 Dose: 40 units Insulin Detemir (Levemir Vial) 25 units SQ HS [facility] Last Admin: 08/19/18 22:04 Dose: 25 units Isosorbide Mononitrate (Imdur -) 60 mg PO DAILY [facility] Methylprednisolone Sodium Succinate (Solu-Medrol -) 40 mg IVPUSH Q12H [facility] Last Admin: 08/20/18 10:45 Dose: 40 mg Metolazone (Zaroxolyn -) 5 mg PO DAILY [facility] Last Admin: 08/20/18 10:44 Dose: 5 mg Nifedipine (Procardia Xl -) 90 mg PO DAILY [facility] Last Admin: 08/20/18 10:45 Dose: 90 mg Rosuvastatin Calcium (Crestor -) 5 mg PO HS [facility] Last Admin: 08/19/18 22:03 Dose: 5 mg Tamsulosin HCl (Flomax -) 0.4 mg PO DAILY@0830 [facility] Last Admin: 08/20/18 09:30 Dose: 0.4 mg - Objective Vital Signs: Vital Signs Temperature 98.3 F 08/20/18 17:00 Pulse Rate 99 H 08/20/18 17:00 Respiratory Rate 20 08/20/18 17:00 Blood Pressure 133/67 08/20/18 17:00 O2 Sat by Pulse Oximetry (%) 96 08/20/18 10:00 Constitutional: Yes: Well Nourished, Obese Neck: Yes: WNL, Supple Cardiovascular: Yes: WNL, Regular Rate and Rhythm Respiratory: Yes: Diminished Gastrointestinal: Yes: WNL, Normal Bowel Sounds, Soft, Abdomen, Obese Labs: CBC, BMP 08/19/18 05:30 08/20/18 05:48 INR, PTT INR 1.10 (0.83-1.09) H 08/12/18 21:00 Problem List - Problems (1) Diastolic CHF Assessment/Plan: Acute on chronic diastolic heart failure Cont IV lasix Cont diuresis Code(s): I50.30 - UNSPECIFIED DIASTOLIC (CONGESTIVE) HEART FAILURE (2) COPD exacerbation Assessment/Plan: Cont IV sterpoids Cont nebulizers Code(s): J44.1 - CHRONIC OBSTRUCTIVE PULMONARY DISEASE W (ACUTE) EXACERBATION (3) Acute on chronic kidney failure Assessment/Plan: Cont to monitor labs Code(s): N17.9 - ACUTE KIDNEY FAILURE, UNSPECIFIED; N18.9 - CHRONIC KIDNEY DISEASE, UNSPECIFIED (4) Acute on chronic respiratory failure with hypoxia and hypercapnia Code(s): J96.21 - ACUTE AND CHRONIC RESPIRATORY FAILURE WITH HYPOXIA; J96.22 - ACUTE AND CHRONIC RESPIRATORY FAILURE WITH HYPERCAPNIA (5) Diabetes Assessment/Plan: Cont sliding scale w/ coverage Code(s): E11.9 - TYPE 2 DIABETES MELLITUS WITHOUT COMPLICATIONS (6) Hyperlipidemia Assessment/Plan: Cont statin Code(s): E78.5 - HYPERLIPIDEMIA, UNSPECIFIED (7) Hypertension Assessment/Plan: BP stable Cont antihypertensives Code(s): I10 - ESSENTIAL (PRIMARY) HYPERTENSION Qualifiers: Hypertension type: unspecified Qualified Code(s): I10 - Essential (primary ) hypertension (8) Morbid obesity Code(s): E66.01 - MORBID (SEVERE) OBESITY DUE TO EXCESS CALORIES (9) Sleep apnea Code(s): G47.30 - SLEEP APNEA, UNSPECIFIED
[2018-08-20] MEDS ORDERED: traMADol HCL 50 MG TABLET PO ONE (21:15)
[2018-08-20] MEDS: ALBUTEROL SO4 2.5/IPRATROPIUM 0.5 INH SOL 3 ML VIAL.NEB. NEB PRN (21:25)
[2018-08-20] MEDS: ROSUVASTATIN CA 5 MG TABLET (FP) PO SCH (23:26)
[2018-08-20] MEDS: INSULIN (LEVEMIR) 100 UNITS/ML UNITS SQ SCH (23:27)
[2018-08-21] MEDS: FUROSEMIDE 40 MG/4 ML INJECTABLE VIAL IVPUSH SCH ×2 (07:10→14:52)
[2018-08-21] MEDS: INSULIN (NOVOLOG MIX 70/30) 100 UNITS/ML MDV SQ SCH ×2 (07:10→17:19)
[2018-08-21] MEDS: GABAPENTIN 300 MG CAPSULE (FP) PO SCH ×3 (07:11→22:08)
[2018-08-21] MEDS: hydrALAZINE HCL 50 MG TABLET (FP) PO SCH ×3 (07:11→22:09)
[2018-08-21] MEDS: FERROUS SO4 325 MG TABLET (FP) PO SCH ×3 (07:11→22:08)
[2018-08-21] MEDS: INSULIN SLIDING SCALE (NOVOLOG) 1 VIAL SQ SCH ×4 (07:11→22:31)
[2018-08-21 08:16] LABS: BILIRUBIN,TOTAL 0.8 mg/dL (0.2-1); CALCIUM 8.7 mg/dL (8.5-10.1); CREATININE 2.7 mg/dL (0.55-1.3); POTASSIUM 4.9 mmol/L (3.5-5.1); TOT PROT 6.3 g/dl (6.4-8.2)
[2018-08-21] MEDS: TAMSULOSIN HCL 0.4 MG CAP PO SCH (09:08)
[2018-08-21] MEDS ORDERED: PT OWN MED DRAWER 7, Y5N ONE ×2 (09:19→17:04)
--- NOTE | 2018-08-21 09:20 | PN ---
Progress Note, Physician History of Present Illness: PULMONARY ALERT,COMFORTABLE,LAYING IN BED,-SOB AT REST,+ [place]ELHO,-CP - Current Medication List Current Medications: Active Medications Albuterol/Ipratropium (Duoneb -) 1 amp NEB Q6H PRN PRN Reason: SHORTNESS OF BREATH Last Admin: 08/20/18 21:25 Dose: 1 amp Aspirin (Asa -) 81 mg PO DAILY [facility] Last Admin: 08/20/18 10:45 Dose: 81 mg Budesonide/Formoterol Fumarate (Symbicort 160/4.5mcg -) 1 puff IH BID [facility] Last Admin: 08/20/18 23:27 Dose: 1 puff Docusate Sodium (Colace -) 100 mg PO DAILY [facility] Last Admin: 08/20/18 10:45 Dose: 100 mg Enoxaparin Sodium (Lovenox -) 40 mg SQ DAILY [facility] Last Admin: 08/20/18 10:56 Dose: 40 mg Ferrous Sulfate (Feosol -) 325 mg PO TID [facility] Last Admin: 08/21/18 07:11 Dose: 325 mg Furosemide (Lasix Injection -) 60 mg IVPUSH BID@0600,1400 [facility] Last Admin: 08/21/18 07:10 Dose: 60 mg Gabapentin (Neurontin -) 300 mg PO TID [facility] Last Admin: 08/21/18 07:11 Dose: 300 mg Hydralazine HCl (Apresoline -) 100 mg PO TID [facility] Last Admin: 08/21/18 07:11 Dose: 100 mg Insulin Aspart (Novolog Vial Sliding Scale -) 1 vial SQ [facility]; Protocol Last Admin: 08/21/18 07:11 Dose: 6 units Insulin Aspart (Novolog Mix 70/30 Vial) 40 units SQ BIDAC [facility] Last Admin: 08/21/18 07:10 Dose: 40 units Insulin Detemir (Levemir Vial) 25 units SQ HS [facility] Last Admin: 08/20/18 23:27 Dose: 25 units Isosorbide Mononitrate (Imdur -) 60 mg PO DAILY [facility] Methylprednisolone Sodium Succinate (Solu-Medrol -) 40 mg IVPUSH Q12H [facility] Last Admin: 08/20/18 23:27 Dose: 40 mg Metolazone (Zaroxolyn -) 5 mg PO DAILY [facility] Last Admin: 08/20/18 10:44 Dose: 5 mg Nifedipine (Procardia Xl -) 90 mg PO DAILY [facility] Last Admin: 08/20/18 10:45 Dose: 90 mg Rosuvastatin Calcium (Crestor -) 5 mg PO HS [facility] Last Admin: 08/20/18 23:26 Dose: 5 mg Tamsulosin HCl (Flomax -) 0.4 mg PO DAILY@0830 [facility] Last Admin: 08/20/18 09:30 Dose: 0.4 mg - Objective Vital Signs: Vital Signs Temperature 97.8 F 08/21/18 05:00 Pulse Rate 86 08/21/18 05:00 Respiratory Rate 20 08/21/18 05:00 Blood Pressure 132/77 08/21/18 05:00 O2 Sat by Pulse Oximetry (%) 96 08/21/18 04:30 Constitutional: Yes: Calm, Obese Eyes: Yes: WNL HENT: Yes: WNL Neck: Yes: WNL Cardiovascular: Yes: Regular Rate and Rhythm, S1, S2 Respiratory: Yes: Diminished Gastrointestinal: Yes: Normal Bowel Sounds, Soft, Abdomen, Obese Extremities: Yes: WNL Edema: Yes Labs: CBC, BMP 08/19/18 05:30 08/21/18 05:20 INR, PTT INR 1.10 (0.83-1.09) H 08/12/18 21:00 Problem List - Problems (1) CKD (chronic kidney disease) Code(s): N18.9 - CHRONIC KIDNEY DISEASE, UNSPECIFIED (2) COPD exacerbation Code(s): J44.1 - CHRONIC OBSTRUCTIVE PULMONARY DISEASE W (ACUTE) EXACERBATION (3) Acute exacerbation of CHF (congestive heart failure) Code(s): I50.9 - HEART FAILURE, UNSPECIFIED (4) Acute on chronic respiratory failure with hypoxia and hypercapnia Code(s): J96.21 - ACUTE AND CHRONIC RESPIRATORY FAILURE WITH HYPOXIA; J96.22 - ACUTE AND CHRONIC RESPIRATORY FAILURE WITH HYPERCAPNIA (5) Acute renal failure Code(s): N17.9 - ACUTE KIDNEY FAILURE, UNSPECIFIED (6) Diabetes Code(s): E11.9 - TYPE 2 DIABETES MELLITUS WITHOUT COMPLICATIONS (7) Hypertension Code(s): I10 - ESSENTIAL (PRIMARY) HYPERTENSION Qualifiers: Hypertension type: unspecified Qualified Code(s): I10 - Essential (primary ) hypertension (8) Morbid exogenous obesity Code(s): E66.01 - MORBID (SEVERE) OBESITY DUE TO EXCESS CALORIES (9) Morbid obesity Code(s): E66.01 - MORBID (SEVERE) OBESITY DUE TO EXCESS CALORIES (10) Obesity hypoventilation syndrome Code(s): E66.2 - MORBID (SEVERE) OBESITY WITH ALVEOLAR HYPOVENTILATION (11) Pulmonary HTN Code(s): I27.2 - OTHER SECONDARY PULMONARY HYPERTENSION * DO NOT USE * (12) Respiratory distress Code(s): R06.00 - DYSPNEA, UNSPECIFIED (13) Shortness of breath Code(s): R06.02 - SHORTNESS OF BREATH (14) Sleep apnea Code(s): G47.30 - SLEEP APNEA, UNSPECIFIED (15) Acute on chronic kidney failure Code(s): N17.9 - ACUTE KIDNEY FAILURE, UNSPECIFIED; N18.9 - CHRONIC KIDNEY DISEASE, UNSPECIFIED Assessment/Plan IMP ACUTE ON CHRONIC HYPOXEMIC RESPIRATORY FAILURE IMPROVING CHRONIC HYPOXEMIC/HYPERCAPNEIC RESPIRATORY FAILURE COPD EXACERBATION IMPROVING DIASTOLIC HF CHEST PAIN PULMONARY HTN COR PULMONALE OBESITY-HYPOVENTILATION SYNDROME ACUTE ON CHRONIC KIDNEY DISEASE HTN DM TATI PLAN NIPPV TO HELP REDUCE WORK OF BREATHING O2 TO MAINTAIN O2 SAT 90% OR GREATER MEDROL TAPER BIPAP AT NIGHT AND PRN INHALED BRONCHODILATORS LASIX DAILY WT DVT PROPHYLAXIS MONITOR LYTES,RENAL FUNCTION STRICT I+OS F/U ABGS NEEDED DR SALVADOR Problem List - Problems (1) CKD (chronic kidney disease) Code(s): N18.9 - CHRONIC KIDNEY DISEASE, UNSPECIFIED (2) COPD exacerbation Code(s): J44.1 - CHRONIC OBSTRUCTIVE PULMONARY DISEASE W (ACUTE) EXACERBATION (3) Acute exacerbation of CHF (congestive heart failure) Code(s): I50.9 - HEART FAILURE, UNSPECIFIED (4) Acute on chronic respiratory failure with hypoxia and hypercapnia Code(s): J96.21 - ACUTE AND CHRONIC RESPIRATORY FAILURE WITH HYPOXIA; J96.22 - ACUTE AND CHRONIC RESPIRATORY FAILURE WITH HYPERCAPNIA (5) Acute renal failure Code(s): N17.9 - ACUTE KIDNEY FAILURE, UNSPECIFIED (6) Diabetes Code(s): E11.9 - TYPE 2 DIABETES MELLITUS WITHOUT COMPLICATIONS (7) Hypertension Code(s): I10 - ESSENTIAL (PRIMARY) HYPERTENSION Qualifiers: Hypertension type: unspecified Qualified Code(s): I10 - Essential (primary ) hypertension (8) Morbid exogenous obesity Code(s): E66.01 - MORBID (SEVERE) OBESITY DUE TO EXCESS CALORIES (9) Morbid obesity Code(s): E66.01 - MORBID (SEVERE) OBESITY DUE TO EXCESS CALORIES (10) Obesity hypoventilation syndrome Code(s): E66.2 - MORBID (SEVERE) OBESITY WITH ALVEOLAR HYPOVENTILATION (11) Pulmonary HTN Code(s): I27.2 - OTHER SECONDARY PULMONARY HYPERTENSION * DO NOT USE * (12) Respiratory distress Code(s): R06.00 - DYSPNEA, UNSPECIFIED (13) Shortness of breath Code(s): R06.02 - SHORTNESS OF BREATH (14) Sleep apnea Code(s): G47.30 - SLEEP APNEA, UNSPECIFIED (15) Acute on chronic kidney failure Code(s): N17.9 - ACUTE KIDNEY FAILURE, UNSPECIFIED; N18.9 - CHRONIC KIDNEY DISEASE, UNSPECIFIED
[2018-08-21] MEDS: ENOXAPARIN NA (PORCINE) 40 MG/0.4 ML DISP.SYRIN SQ SCH (10:07)
[2018-08-21] MEDS: NIFEdipine E.R. 90 MG TABLET (FP) PO SCH (10:08)
[2018-08-21] MEDS: DOCUSATE SODIUM 100 MG CAPSULE (FP) PO SCH (10:08)
[2018-08-21] MEDS: ASPIRIN 81 MG CHEWABLE TABLETS PO SCH (10:08)
[2018-08-21] MEDS: BUDESONIDE/FORMETEROL FUMARATE 160/4.5 mcg INHALER IH SCH ×2 (10:09→22:32)
[2018-08-21] MEDS: ISOSORBIDE MONONITRATE 30 MG TAB.SR.24H (FP) PO SCH (10:09)
[2018-08-21] MEDS: methylPREDNISolone NA SUCC 40 MG/1 ML VIAL IVPUSH SCH ×2 (10:34→22:09)
--- NOTE | 2018-08-21 11:27 | PN ---
Progress Note (short form) - Note Progress Note: RENAL Pt is awake and alert uses oxygen appears chronically ill Last Vital Signs Temp Pulse Resp BP Pulse Ox 97.8 F 86 20 132/77 96 08/21/18 05:00 08/21/18 05:00 08/21/18 05:00 08/21/18 05:00 08/21/18 04:30 lungs decreased breath sounds cvs s1s2 rr distant abd obese ext has lymphedema neuro a+ox3 CBC, BMP 08/19/18 05:30 08/21/18 05:20 Current Medications Generic Name Dose Route Start Last Admin Trade Name Freq PRN Reason Stop Dose Admin Aspirin 81 mg 08/13/18 10:00 08/21/18 10:08 Asa - PO 81 mg DAILY [facility] Administration Budesonide/Formoterol Fumarate 1 puff 08/13/18 10:00 08/21/18 10:09 Symbicort 160/4.5mcg - IH 1 puff BID [facility]ON Administration Docusate Sodium 100 mg 08/13/18 10:00 08/21/18 10:08 Colace - PO 100 mg DAILY [facility] Administration Enoxaparin Sodium 40 mg 08/16/18 10:00 08/21/18 10:07 Lovenox - SQ 40 mg DAILY [facility] Administration Ferrous Sulfate 325 mg 08/13/18 06:00 08/21/18 07:11 Feosol - PO 325 mg TID ZNEON Administration Furosemide 60 mg 08/17/18 14:00 08/21/18 07:10 Lasix Injection - IVPUSH 60 mg BID@0600,1400 [facility] Administration Gabapentin 300 mg 08/13/18 06:00 08/21/18 07:11 Neurontin - PO 300 mg TID [facility] Administration Hydralazine HCl 100 mg 08/19/18 22:00 08/21/18 07:11 Apresoline - PO 100 mg TID [facility] Administration Insulin Aspart 1 vial 08/18/18 16:30 08/21/18 07:11 Novolog Vial Sliding Scale - SQ 6 units ACHS [facility]ON Administration Protocol Insulin Aspart 40 units 08/18/18 22:49 08/21/18 07:10 Novolog Mix 70/30 Vial SQ 40 units BIDAC [facility] Administration Insulin Detemir 25 units 08/18/18 22:50 08/20/18 23:27 Levemir Vial SQ 25 units HS [facility] Administration Isosorbide Mononitrate 60 mg 08/21/18 10:00 08/21/18 10:09 Imdur - PO 60 mg DAILY [facility] Administration Methylprednisolone Sodium Succinate 30 mg 08/21/18 09:20 08/21/18 10:34 Solu-Medrol - IVPUSH 30 mg Q12H [facility] Administration Metolazone 5 mg 08/17/18 10:00 08/20/18 10:44 Zaroxolyn - PO 5 mg DAILY [facility] Administration Nifedipine 90 mg 08/13/18 10:00 08/21/18 10:08 Procardia Xl - PO 90 mg DAILY [facility] Administration Rosuvastatin Calcium 5 mg 08/13/18 22:00 08/20/18 23:26 Crestor - PO 5 mg HS [facility] Administration Tamsulosin HCl 0.4 mg 08/13/18 08:30 08/21/18 09:08 Flomax - PO 0.4 mg DAILY@0830 [facility] Administration IMPRESSION ckd morbid obesity dm fluid overload respiratory acidosis fluctuating renal function nephrotic range proteinuria 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
--- NOTE | 2018-08-21 11:55 | PN ---
Physical Exam: SUBJECTIVE: Patient seen and examined at bedside. On BiPAP. Uses at night and when he needs it during day. OBJECTIVE: Vital Signs Period Temp Pulse Resp BP Sys/Watson Pulse Ox Last 24 Hr 97.8 F-98.3 F 86-101 20-20 132-165/67-92 92-96 GENERAL: The patient is awake, alert, and fully oriented, in no acute distress. On BiPAP. LUNGS: Anterior breath sounds CTA HEART: Regular rate and rhythm, S1, S2 ABDOMEN: Soft, nontender, obese, large pannus, enormous groin lymphedema; performed skin exam, no obvious cellulitis, abscess EXTREMITIES: 3+ edema bilaterally NEUROLOGICAL: Cranial nerves II through XII grossly intact. Normal speech, gait not observed. Laboratory Results - last 24 hr 08/20/18 08/20/18 08/20/18 12:08 17:16 23:22 Sodium Potassium Chloride Carbon Dioxide Anion Gap BUN Creatinine Est GFR (CKD-EPI)AfAm Est GFR (CKD-EPI)NonAf POC Glucometer 121 224 213 Random Glucose Calcium Total Bilirubin AST ALT Alkaline Phosphatase Total Protein Albumin 08/21/18 08/21/18 05:20 07:08 Sodium 138 Potassium 4.9 Chloride 99 Carbon Dioxide 30 Anion Gap 8 BUN 87 H Creatinine 2.7 H Est GFR (CKD-EPI)AfAm 30.69 Est GFR (CKD-EPI)NonAf 26.48 POC Glucometer 216 Random Glucose 225 H Calcium 8.7 Total Bilirubin 0.8 AST 11 L ALT 34 Alkaline Phosphatase 93 Total Protein 6.3 L Albumin 3.0 L Active Medications Generic Name Dose Route Start Last Admin Trade Name Freq PRN Reason Stop Dose Admin Aspirin 81 mg 08/13/18 10:08/21/18 10:08 Asa - PO 81 mg DAILY [facility] Administration Budesonide/Formoterol Fumarate 1 puff 08/13/18 10:00 08/21/18 10:09 Symbicort 160/4.5mcg - IH 1 puff BID [facility]ON Administration Docusate Sodium 100 mg 08/13/18 10:00 08/21/18 10:08 Colace - PO 100 mg DAILY [facility] Administration Enoxaparin Sodium 40 mg 08/16/18 10:00 08/21/18 10:07 Lovenox - SQ 40 mg DAILY [facility] Administration Ferrous Sulfate 325 mg 08/13/18 06:00 08/21/18 07:11 Feosol - PO 325 mg TID [facility]ON Administration Furosemide 60 mg 08/17/18 14:00 08/21/18 07:10 Lasix Injection - IVPUSH 60 mg BID@0600,1400 [facility]ON Administration Gabapentin 300 mg 08/13/18 06:00 08/21/18 07:11 Neurontin - PO 300 mg TID [facility] Administration Hydralazine HCl 100 mg 08/19/18 22:00 08/21/18 07:11 Apresoline - PO 100 mg TID [facility] Administration Insulin Aspart 1 vial 08/18/18 16:30 08/21/18 07:11 Novolog Vial Sliding Scale - SQ 6 units ACHS [facility]ENON Administration Protocol Insulin Aspart 40 units 08/18/18 22:49 08/21/18 07:10 Novolog Mix 70/30 Vial SQ 40 units BIDAC [facility] Administration Insulin Detemir 25 units 08/18/18 22:50 08/20/18 23:27 Levemir Vial SQ 25 units HS [facility] Administration Isosorbide Mononitrate 60 mg 08/21/18 10:00 08/21/18 10:09 Imdur - PO 60 mg DAILY [facility] Administration Methylprednisolone Sodium Succinate 30 mg 08/21/18 09:20 08/21/18 10:34 Solu-Medrol - IVPUSH 30 mg Q12H [facility] Administration Metolazone 5 mg 08/17/18 10:00 08/20/18 10:44 Zaroxolyn - PO 5 mg DAILY [facility] Administration Nifedipine 90 mg 08/13/18 10:00 08/21/18 10:08 Procardia Xl - PO 90 mg DAILY [facility] Administration Rosuvastatin Calcium 5 mg 08/13/18 22:00 08/20/18 23:26 Crestor - PO 5 mg HS [facility] Administration Tamsulosin HCl 0.4 mg 08/13/18 08:30 08/21/18 09:08 Flomax - PO 0.4 mg DAILY@0830 [facility] Administration ASSESSMENT/PLAN: 47 year-old male with a PMH significant for HTN, HLD, COPD on 4L, Type II IDDM , CKD, and morbid obesity. Leukocytosis --WBC trending up, afebrile --cruz has been in since 08/13; d/c now --UA & UC, blood cultures --physical exam is difficult due to body habitus, did not see lower abdominal abscess or cellulitis on my exam today; however, Dr. Hines has commented twice on this --ID consult requested Hematuria --pink-tinged urine today --repeat UA Acute on chronic kidney failure Nephrotic range proteinuria --Cr 2.3 on admission which is ~ baseline --Cr 2.7 today on high dose lasix --nephrology following Acute on chronic respiratory failure with hypoxia and hypercapnia COPD exacerbation Sleep apnea Morbid obesity Obesity hypoventilation syndrome --NIPPV at night and PRN --Maintain O2 sat 88 to 92% --continue solumedrol taper, symbicort Acute on chronic diastolic heart failure Cor pulmonale --08/13 Echo: LV normal, impaired relaxation; flattened septum c/w RV pressure overload, RV mild to moderately dilated; RV function mildly decreased; mild to moderate TR; RVSP increased 40-50mmHg --down 7kg since admission and CXR today 08/21 shows decreased congestive changes --continue metazolone, lasix but Cr rising --daily weights, I&Os --repeat CXR Hypertension --continue nifedipine, hydralazine, isosorbide Hyperlipidemia --continue Crestor Type II NIDDM --Novolog sliding scale coverage --Levemir FEN Fluids: PO intake adequate Electrolytes: replete as indicated Nutrition: low sodium, diabetic DVT prophylaxis: lovenox subq increased to 50mg daily (BMI>40) Physical therapy Dispo: continues to require inpatient care. Full code. Visit type - Emergency Visit Emergency Visit: Yes ED Registration Date: 08/12/18 Care time: The patient presented to the Emergency Department on the above date and was hospitalized for further evaluation of their emergent condition. - New Patient This patient is new to me today: Yes Date on this admission: 08/21/18 - Critical Care Critical Care patient: No
[2018-08-21] MEDS: METOLAZONE 5 MG TABLET PO SCH (14:00)
[2018-08-21 14:40] LABS: BASO % 0.1 % (0-2.0); HEMATOCRIT 39.4 % (35.4-49); HEMOGLOBIN 11.9 GM/dL (11.7-16.9); LYMPH % 2.3 % (8-40); MCH 26.8 pg (25.7-33.7); MCHC 30.2 g/dl (32.0-35.9); MEAN CELL VOLUME 88.7 fl (80-96); MEAN PLT VOLUME 8.4 fl (7.5-11.1); MONO % 3.2 % (3.8-10.2); NEUT % 94.4 % (42.8-82.8); PLATELET COUNT 284 K/MM3 (134-434); RBC 4.44 M/mm3 (4.00-5.60); RDW 17.9 % (11.9-15.9); WHITE BLOOD COUNT 12.5 K/mm3 (4.0-10.0)
[2018-08-21] MEDS: TETRACAINE/BENZOCAINE/BUTAMBEN 20 GM SPR TP SCH (15:18)
[2018-08-21 15:22] LABS: BILIRUBIN,TOTAL 0.8 mg/dL (0.2-1); CREATININE 2.8 mg/dL (0.55-1.3); MAGNESIUM 2.2 mg/dL (1.8-2.4); PHOSPHOROUS 4.7 mg/dL (2.5-4.9); POTASSIUM 4.4 mmol/L (3.5-5.1); TOT PROT 6.3 g/dl (6.4-8.2)
[2018-08-21 16:09] LABS: ANISOCYTOSIS 1+; MACROCYTOSIS 0; PLATELET ESTIMATE NORMAL
[2018-08-21 17:16] LABS: EPI CELLS 1.5 /HPF (0-5/HPF); HYALINE CASTS 2 /lpf (0-8); PH,URINE 5.5 (5.0-8.0); URINE APPEARANCE CLEAR; URINE BILIRUBIN NEGATIVE (NEGATIVE); URINE COLOR YELLOW; URINE GLUCOSE (UA) NEGATIVE (NEGATIVE); URINE KETONE NEGATIVE (NEGATIVE); URINE LEUK ESTERASE TRACE (NEGATIVE); URINE NITRITE NEGATIVE (NEGATIVE); URINE PROTEIN 2+ (NEGATIVE); URINE RBC 60 /hpf (0-4); URINE WBC 5 /hpf (0-5)
[2018-08-21] MEDS: ROSUVASTATIN CA 5 MG TABLET (FP) PO SCH (22:08)
[2018-08-21] MEDS: INSULIN (LEVEMIR) 100 UNITS/ML UNITS SQ SCH (22:30)
[2018-08-22] MEDS: FUROSEMIDE 40 MG/4 ML INJECTABLE VIAL IVPUSH SCH ×2 (06:43→14:10)
[2018-08-22] MEDS: GABAPENTIN 300 MG CAPSULE (FP) PO SCH ×3 (06:44→22:19)
[2018-08-22] MEDS: hydrALAZINE HCL 50 MG TABLET (FP) PO SCH ×3 (06:44→22:19)
[2018-08-22] MEDS: INSULIN (NOVOLOG MIX 70/30) 100 UNITS/ML MDV SQ SCH ×2 (06:44→17:27)
[2018-08-22] MEDS: FERROUS SO4 325 MG TABLET (FP) PO SCH ×3 (06:44→22:19)
[2018-08-22] MEDS: INSULIN SLIDING SCALE (NOVOLOG) 1 VIAL SQ SCH ×4 (06:49→22:27)
[2018-08-22 07:23] LABS: ALBUMIN 3.1 g/dl (3.4-5.0); ALK PHOS 84 U/L (45-117); ANION GAP 8 MMOL/L (8-16); BILIRUBIN,TOTAL 1.1 mg/dL (0.2-1); BLOOD UREA NITROGEN 88 mg/dL (7-18); CALCIUM 8.6 mg/dL (8.5-10.1); CHLORIDE 98 mmol/L (98-107); CO2 31 mmol/L (21-32); CREATININE 2.8 mg/dL (0.55-1.3); GLUCOSE,RANDOM 203 mg/dL (74-106); MAGNESIUM 2.4 mg/dL (1.8-2.4); POTASSIUM 4.7 mmol/L (3.5-5.1); SGOT/AST 11 U/L (15-37); SGPT/ALT 35 U/L (13-61); SODIUM 138 mmol/L (136-145); TOT PROT 6.4 g/dl (6.4-8.2)
[2018-08-22 07:24] LABS: BASO % 0.2 % (0-2.0); HEMATOCRIT 39.6 % (35.4-49); HEMOGLOBIN 12.1 GM/dL (11.7-16.9); LYMPH % 2.7 % (8-40); MCH 27.2 pg (25.7-33.7); MCHC 30.6 g/dl (32.0-35.9); MEAN CELL VOLUME 89.1 fl (80-96); MEAN PLT VOLUME 8.1 fl (7.5-11.1); MONO % 3.6 % (3.8-10.2); NEUT % 93.5 % (42.8-82.8); PLATELET COUNT 287 K/MM3 (134-434); RBC 4.45 M/mm3 (4.00-5.60); RDW 17.6 % (11.9-15.9); WHITE BLOOD COUNT 12.1 K/mm3 (4.0-10.0)
[2018-08-22] MEDS: TAMSULOSIN HCL 0.4 MG CAP PO SCH (08:54)
[2018-08-22] MEDS: methylPREDNISolone NA SUCC 40 MG/1 ML VIAL IVPUSH SCH ×2 (09:53→22:19)
[2018-08-22] MEDS: ENOXAPARIN NA (PORCINE) 60 MG/0.6 ML DISP.SYRIN SQ SCH (09:53)
[2018-08-22] MEDS: ASPIRIN 81 MG CHEWABLE TABLETS PO SCH (09:54)
[2018-08-22] MEDS: DOCUSATE SODIUM 100 MG CAPSULE (FP) PO SCH (09:54)
[2018-08-22] MEDS: ISOSORBIDE MONONITRATE 30 MG TAB.SR.24H (FP) PO SCH (09:54)
[2018-08-22] MEDS: NIFEdipine E.R. 90 MG TABLET (FP) PO SCH (09:54)
[2018-08-22] MEDS: METOLAZONE 5 MG TABLET PO SCH (09:54)
[2018-08-22] MEDS: TETRACAINE/BENZOCAINE/BUTAMBEN 20 GM SPR TP SCH (09:55)
[2018-08-22] MEDS: BUDESONIDE/FORMETEROL FUMARATE 160/4.5 mcg INHALER IH SCH ×2 (09:55→22:30)
--- NOTE | 2018-08-22 10:28 | PN ---
Progress Note (short form) - Note Progress Note: RENAL Pt is awake and alert uses oxygen appears chronically ill Last Vital Signs Temp Pulse Resp BP Pulse Ox 98.0 F 86 20 147/78 96 08/22/18 04:40 08/22/18 04:40 08/22/18 04:40 08/22/18 04:40 08/22/18 04:40 lungs decreased breath sounds cvs s1s2 rr distant abd obese ext has lymphedema neuro a+ox3 CBC, BMP 08/22/18 05:30 08/22/18 05:30 Generic Name Dose Route Start Last Admin Trade Name Freq PRN Reason Stop Dose Admin Aspirin 81 mg 08/13/18 10:00 08/21/18 10:08 Asa - PO 81 mg DAILY [facility]ENON Administration Budesonide/Formoterol Fumarate 1 puff 08/13/18 10:00 08/21/18 10:09 Symbicort 160/4.5mcg - IH 1 puff BID [facility]EONN Administration Docusate Sodium 100 mg 08/13/18 10:00 08/21/18 10:08 Colace - PO 100 mg DAILY [facility]ON Administration Enoxaparin Sodium 40 mg 08/16/18 10:00 08/21/18 10:07 Lovenox - SQ 40 mg DAILY [facility] Administration Ferrous Sulfate 325 mg 08/13/18 06:00 08/21/18 07:11 Feosol - PO 325 mg TID [facility]ON Administration Furosemide 60 mg 08/17/18 14:00 08/21/18 07:10 Lasix Injection - IVPUSH 60 mg BID@0600,1400 [facility]ON Administration Gabapentin 300 mg 08/13/18 06:00 08/21/18 07:11 Neurontin - PO 300 mg TID [facility]ON Administration Hydralazine HCl 100 mg 08/19/18 22:00 08/21/18 07:11 Apresoline - PO 100 mg TID [facility]ENON Administration Insulin Aspart 1 vial 08/18/18 16:30 08/21/18 07:11 Novolog Vial Sliding Scale - SQ 6 units ACHS ZENON Administration Protocol Insulin Aspart 40 units 08/18/18 22:49 08/21/18 07:10 Novolog Mix 70/30 Vial SQ 40 units BIDAC [facility]ON Administration Insulin Detemir 25 units 08/18/18 22:50 08/20/18 23:27 Levemir Vial SQ 25 units HS [facility]ON Administration Isosorbide Mononitrate 60 mg 08/21/18 10:00 08/21/18 10:09 Imdur - PO 60 mg DAILY [facility] Administration Methylprednisolone Sodium Succinate 30 mg 08/21/18 09:20 08/21/18 10:34 Solu-Medrol - IVPUSH 30 mg Q12H [facility]ON Administration Metolazone 5 mg 08/17/18 10:00 08/20/18 10:44 Zaroxolyn - PO 5 mg DAILY [facility] Administration Nifedipine 90 mg 08/13/18 10:00 08/21/18 10:08 Procardia Xl - PO 90 mg DAILY [facility] Administration Rosuvastatin Calcium 5 mg 08/13/18 22:00 08/20/18 23:26 Crestor - PO 5 mg HS [facility]ON Administration Tamsulosin HCl 0.4 mg 08/13/18 08:30 08/21/18 09:08 Flomax - PO 0.4 mg DAILY@0830 [facility]ON Administration IMPRESSION ckd morbid obesity dm fluid overload respiratory acidosis fluctuating renal function nephrotic range proteinuria 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
--- NOTE | 2018-08-22 11:14 | PN ---
Progress Note, Physician History of Present Illness: PULMONARY ALERT,OOB-CHAIR ON BIPAP NO DISTRESS - Current Medication List Current Medications: Active Medications Aspirin (Asa -) 81 mg PO DAILY [facility] Last Admin: 08/22/18 09:54 Dose: 81 mg Benzocaine/Butamben/Tetracaine HCl (Cetacaine [place] -) 1 spray TP DAILY [facility] Last Admin: 08/22/18 09:55 Dose: 1 spray Budesonide/Formoterol Fumarate (Symbicort 160/4.5mcg -) 1 puff IH BID [facility] Last Admin: 08/22/18 09:55 Dose: 1 puff Docusate Sodium (Colace -) 100 mg PO DAILY [facility] Last Admin: 08/22/18 09:54 Dose: 100 mg Enoxaparin Sodium (Lovenox -) 50 mg SQ DAILY [facility] Last Admin: 08/22/18 09:53 Dose: 50 mg Ferrous Sulfate (Feosol -) 325 mg PO TID [facility] Last Admin: 08/22/18 06:44 Dose: 325 mg Furosemide (Lasix Injection -) 60 mg IVPUSH BID@0600,1400 [facility] Last Admin: 08/22/18 06:43 Dose: 60 mg Gabapentin (Neurontin -) 300 mg PO TID [facility] Last Admin: 08/22/18 06:44 Dose: 300 mg Hydralazine HCl (Apresoline -) 100 mg PO TID [facility] Last Admin: 08/22/18 06:44 Dose: 100 mg Insulin Aspart (Novolog Mix 70/30 Vial) 40 units SQ BIDAC [facility] Last Admin: 08/22/18 06:44 Dose: 40 units Insulin Aspart (Novolog Vial Sliding Scale -) 1 vial SQ [facility]; Protocol Last Admin: 08/22/18 06:49 Dose: 8 units Insulin Detemir (Levemir Vial) 25 units SQ HS [facility] Last Admin: 08/21/18 22:30 Dose: 25 units Isosorbide Mononitrate (Imdur -) 60 mg PO DAILY [facility] Last Admin: 08/22/18 09:54 Dose: 60 mg Methylprednisolone Sodium Succinate (Solu-Medrol -) 30 mg IVPUSH Q12H [facility] Last Admin: 08/22/18 09:53 Dose: 30 mg Metolazone (Zaroxolyn -) 5 mg PO DAILY [facility] Last Admin: 08/22/18 09:54 Dose: 5 mg Nifedipine (Procardia Xl -) 90 mg PO DAILY [facility] Last Admin: 08/22/18 09:54 Dose: 90 mg Rosuvastatin Calcium (Crestor -) 5 mg PO HS [facility] Last Admin: 08/21/18 22:08 Dose: 5 mg Tamsulosin HCl (Flomax -) 0.4 mg PO DAILY@0830 [facility] Last Admin: 08/22/18 08:54 Dose: 0.4 mg - Objective Vital Signs: Vital Signs Temperature 97.7 F 08/22/18 09:00 Pulse Rate 92 H 08/22/18 09:00 Respiratory Rate 20 08/22/18 09:00 Blood Pressure 157/76 08/22/18 09:00 O2 Sat by Pulse Oximetry (%) 96 08/22/18 04:40 Constitutional: Yes: Calm, Obese Eyes: Yes: WNL HENT: Yes: WNL Neck: Yes: WNL Cardiovascular: Yes: Regular Rate and Rhythm, S1, S2 Respiratory: Yes: Diminished, On BiPap Gastrointestinal: Yes: Normal Bowel Sounds, Soft, Abdomen, Obese Extremities: Yes: WNL Edema: Yes Labs: CBC, BMP 08/22/18 05:30 08/22/18 05:30 INR, PTT INR 1.10 (0.83-1.09) H 08/12/18 21:00 Problem List - Problems (1) CKD (chronic kidney disease) Code(s): N18.9 - CHRONIC KIDNEY DISEASE, UNSPECIFIED (2) COPD exacerbation Code(s): J44.1 - CHRONIC OBSTRUCTIVE PULMONARY DISEASE W (ACUTE) EXACERBATION (3) Acute exacerbation of CHF (congestive heart failure) Code(s): I50.9 - HEART FAILURE, UNSPECIFIED (4) Acute on chronic respiratory failure with hypoxia and hypercapnia Code(s): J96.21 - ACUTE AND CHRONIC RESPIRATORY FAILURE WITH HYPOXIA; J96.22 - ACUTE AND CHRONIC RESPIRATORY FAILURE WITH HYPERCAPNIA (5) Acute renal failure Code(s): N17.9 - ACUTE KIDNEY FAILURE, UNSPECIFIED (6) Diabetes Code(s): E11.9 - TYPE 2 DIABETES MELLITUS WITHOUT COMPLICATIONS (7) Hypertension Code(s): I10 - ESSENTIAL (PRIMARY) HYPERTENSION Qualifiers: Hypertension type: unspecified Qualified Code(s): I10 - Essential (primary ) hypertension (8) Morbid exogenous obesity Code(s): E66.01 - MORBID (SEVERE) OBESITY DUE TO EXCESS CALORIES (9) Morbid obesity Code(s): E66.01 - MORBID (SEVERE) OBESITY DUE TO EXCESS CALORIES (10) Obesity hypoventilation syndrome Code(s): E66.2 - MORBID (SEVERE) OBESITY WITH ALVEOLAR HYPOVENTILATION (11) Pulmonary HTN Code(s): I27.2 - OTHER SECONDARY PULMONARY HYPERTENSION * DO NOT USE * (12) Respiratory distress Code(s): R06.00 - DYSPNEA, UNSPECIFIED (13) Shortness of breath Code(s): R06.02 - SHORTNESS OF BREATH (14) Sleep apnea Code(s): G47.30 - SLEEP APNEA, UNSPECIFIED (15) Acute on chronic kidney failure Code(s): N17.9 - ACUTE KIDNEY FAILURE, UNSPECIFIED; N18.9 - CHRONIC KIDNEY DISEASE, UNSPECIFIED Assessment/Plan IMP ACUTE ON CHRONIC HYPOXEMIC RESPIRATORY FAILURE IMPROVING CHRONIC HYPOXEMIC/HYPERCAPNEIC RESPIRATORY FAILURE COPD EXACERBATION IMPROVING DIASTOLIC HF CHEST PAIN PULMONARY HTN COR PULMONALE OBESITY-HYPOVENTILATION SYNDROME ACUTE ON CHRONIC KIDNEY DISEASE HTN DM TATI PLAN NIPPV TO HELP REDUCE WORK OF BREATHING O2 TO MAINTAIN O2 SAT 90% OR GREATER CONTINUE MEDROL TAPER BIPAP AT NIGHT AND PRN INHALED BRONCHODILATORS LASIX DAILY WT DVT PROPHYLAXIS MONITOR LYTES,RENAL FUNCTION STRICT I+OS DR SALVADOR Problem List - Problems (1) CKD (chronic kidney disease) Code(s): N18.9 - CHRONIC KIDNEY DISEASE, UNSPECIFIED (2) COPD exacerbation Code(s): J44.1 - CHRONIC OBSTRUCTIVE PULMONARY DISEASE W (ACUTE) EXACERBATION (3) Acute exacerbation of CHF (congestive heart failure) Code(s): I50.9 - HEART FAILURE, UNSPECIFIED (4) Acute on chronic respiratory failure with hypoxia and hypercapnia Code(s): J96.21 - ACUTE AND CHRONIC RESPIRATORY FAILURE WITH HYPOXIA; J96.22 - ACUTE AND CHRONIC RESPIRATORY FAILURE WITH HYPERCAPNIA (5) Acute renal failure Code(s): N17.9 - ACUTE KIDNEY FAILURE, UNSPECIFIED (6) Diabetes Code(s): E11.9 - TYPE 2 DIABETES MELLITUS WITHOUT COMPLICATIONS (7) Hypertension Code(s): I10 - ESSENTIAL (PRIMARY) HYPERTENSION Qualifiers: Hypertension type: unspecified Qualified Code(s): I10 - Essential (primary ) hypertension (8) Morbid exogenous obesity Code(s): E66.01 - MORBID (SEVERE) OBESITY DUE TO EXCESS CALORIES (9) Morbid obesity Code(s): E66.01 - MORBID (SEVERE) OBESITY DUE TO EXCESS CALORIES (10) Obesity hypoventilation syndrome Code(s): E66.2 - MORBID (SEVERE) OBESITY WITH ALVEOLAR HYPOVENTILATION (11) Pulmonary HTN Code(s): I27.2 - OTHER SECONDARY PULMONARY HYPERTENSION * DO NOT USE * (12) Respiratory distress Code(s): R06.00 - DYSPNEA, UNSPECIFIED (13) Shortness of breath Code(s): R06.02 - SHORTNESS OF BREATH (14) Sleep apnea Code(s): G47.30 - SLEEP APNEA, UNSPECIFIED (15) Acute on chronic kidney failure Code(s): N17.9 - ACUTE KIDNEY FAILURE, UNSPECIFIED; N18.9 - CHRONIC KIDNEY DISEASE, UNSPECIFIED
[2018-08-22 11:49] LABS: ANISOCYTOSIS 1+; MACROCYTOSIS 1+; OVALOCYTE 1+; PLATELET ESTIMATE NORMAL
--- NOTE | 2018-08-22 16:04 | CON.ID ---
Consult Consult Specialty:: infectious disease Referred by:: hospitalist Reason for Consultation:: cellulitis - History of Present Illness Chief Complaint: sob History of Present Illness: 47 yo man admitted with morbid obesity admitted 08/12 with sob and chest pain he has been on steroids and diuretics for treatment of copd and chf asked to see for cellulitis? patient reports prior to admission he had a boil on his back that was draining- now feels like a "knot" no fevers or chills - History Source History Provided By: Patient Limitations to Obtaining History: No Limitations - Past Medical History Cardio/Vascular: Yes: HTN, Hyperlipdemia, Pulmonary Hypertension, Other (morbid obesity; sedentary) Pulmonary: Yes: Bronchitis, COPD Renal/: Yes: Renal Inusuff Psych: Yes: Anxiety Endocrine: Yes: Diabetes Mellitus - Past Surgical History Past Surgical History: Yes: Arthrosocopy (b/l knees) - Alcohol/Substance Use Hx Alcohol Use: No History of Substance Use: reports: None - Smoking History Smoking history: Unknown if ever smoked Have you smoked in the past 12 months: No Aproximately how many cigarettes per day: 0 If you are a former smoker, when did you quit?: 1998 - Social History Usual Living Arrangement: Other (with family) ADL: Family Assistance Place of : [facility] History of Recent Travel: No Home Medications - Allergies Allergies/Adverse Reactions: Allergies Allergy/AdvReac Type Severity Reaction Status Date / Time No Known Allergies Allergy Verified 08/12/18 20:42 - Home Medications Home Medications: Ambulatory Orders Aspirin 81 mg PO DAILY 08/13/18 Gabapentin [Neurontin -] 300 mg PO Q8H 08/13/18 Hydralazine HCl 25 mg PO TID 08/13/18 Omeprazole 20 mg PO DAILY 08/13/18 Rosuvastatin [Crestor -] 5 mg PO HS 08/13/18 Family Disease History - Family Disease History Family Disease History: Diabetes: Grandparent, Father, Heart Disease: Father, [place] : Mother Review of Systems - Review of Systems Constitutional: reports: No Symptoms. denies: Chills, Fever Eyes: reports: No Symptoms HENT: reports: No Symptoms Neck: reports: No Symptoms Cardiovascular: reports: No Symptoms Respiratory: reports: No Symptoms Gastrointestinal: reports: No Symptoms Genitourinary: reports: No Symptoms Physical Exam Vital Signs: Vital Signs Temperature 97.7 F 08/22/18 09:00 Pulse Rate 92 H 08/22/18 09:00 Respiratory Rate 20 08/22/18 09:00 Blood Pressure 157/76 08/22/18 09:00 O2 Sat by Pulse Oximetry (%) 97 08/22/18 11:30 Constitutional: Yes: Well Nourished, No Distress, Obese Eyes: Yes: Conjunctiva Clear, EOM Intact HENT: Yes: Atraumatic, Normocephalic Neck: Yes: Supple, Trachea Midline Cardiovascular: Yes: Regular Rate and Rhythm Respiratory: Yes: Regular, CTA Bilaterally Gastrointestinal: Yes: Normal Bowel Sounds, Other (large pannus, no inguinal lesions, no scrotal lesions on his back at cleft of buttock he has hardened 2 cm nodule- no erythema with purulent center) Edema: Yes Neurological: Yes: Alert, Oriented Labs: CBC, BMP 08/22/18 05:30 08/22/18 05:30 Imaging - Results Chest X-ray: Report Reviewed, Image Reviewed Problem List - Problems (1) Subcutaneous abscess Code(s): L02.91 - CUTANEOUS ABSCESS, UNSPECIFIED (2) Morbid obesity Code(s): E66.01 - MORBID (SEVERE) OBESITY DUE TO EXCESS CALORIES (3) COPD exacerbation Code(s): J44.1 - CHRONIC OBSTRUCTIVE PULMONARY DISEASE W (ACUTE) EXACERBATION (4) Diastolic CHF Code(s): I50.30 - UNSPECIFIED DIASTOLIC (CONGESTIVE) HEART FAILURE (5) Diabetes Code(s): E11.9 - TYPE 2 DIABETES MELLITUS WITHOUT COMPLICATIONS Assessment/Plan small abscess without cellulitis- suggest surgery to see to drain can try warm compresses, no real role for antiibiotics at this time
[2018-08-22] MEDS: ROSUVASTATIN CA 5 MG TABLET (FP) PO SCH (22:19)
[2018-08-22] MEDS: INSULIN (LEVEMIR) 100 UNITS/ML UNITS SQ SCH (22:20)
--- NOTE | 2018-08-22 22:45 | PN ---
Progress Note, Physician - Current Medication List Current Medications: Active Medications Aspirin (Asa -) 81 mg PO DAILY [facility] Last Admin: 08/22/18 09:54 Dose: 81 mg Benzocaine/Butamben/Tetracaine HCl (Cetacaine [place] -) 1 spray TP DAILY [facility] Last Admin: 08/22/18 09:55 Dose: 1 spray Budesonide/Formoterol Fumarate (Symbicort 160/4.5mcg -) 1 puff IH BID [facility] Last Admin: 08/22/18 22:30 Dose: 1 puff Docusate Sodium (Colace -) 100 mg PO DAILY [facility] Last Admin: 08/22/18 09:54 Dose: 100 mg Enoxaparin Sodium (Lovenox -) 50 mg SQ DAILY [facility] Last Admin: 08/22/18 09:53 Dose: 50 mg Ferrous Sulfate (Feosol -) 325 mg PO TID [facility] Last Admin: 08/22/18 22:19 Dose: 325 mg Furosemide (Lasix Injection -) 60 mg IVPUSH BID@0600,1400 [facility] Last Admin: 08/22/18 14:10 Dose: 60 mg Gabapentin (Neurontin -) 300 mg PO TID [facility] Last Admin: 08/22/18 22:19 Dose: 300 mg Hydralazine HCl (Apresoline -) 100 mg PO TID [facility] Last Admin: 08/22/18 22:19 Dose: 100 mg Insulin Aspart (Novolog Mix 70/30 Vial) 40 units SQ BIDAC [facility] Last Admin: 08/22/18 17:27 Dose: 40 units Insulin Aspart (Novolog Vial Sliding Scale -) 1 vial SQ [facility]; Protocol Last Admin: 08/22/18 22:27 Dose: 8 units Insulin Detemir (Levemir Vial) 25 units SQ [facility] Last Admin: 08/22/18 22:20 Dose: 25 units Isosorbide Mononitrate (Imdur -) 60 mg PO DAILY [facility] Last Admin: 08/22/18 09:54 Dose: 60 mg Methylprednisolone Sodium Succinate (Solu-Medrol -) 30 mg IVPUSH Q12H [facility] Last Admin: 08/22/18 22:19 Dose: 30 mg Metolazone (Zaroxolyn -) 5 mg PO DAILY [facility] Last Admin: 08/22/18 09:54 Dose: 5 mg Nifedipine (Procardia Xl -) 90 mg PO DAILY [facility] Last Admin: 08/22/18 09:54 Dose: 90 mg Rosuvastatin Calcium (Crestor -) 5 mg PO HS [facility] Last Admin: 08/22/18 22:19 Dose: 5 mg Tamsulosin HCl (Flomax -) 0.4 mg PO DAILY@0830 [facility] Last Admin: 08/22/18 08:54 Dose: 0.4 mg - Objective Vital Signs: Vital Signs Temperature 98.3 F 08/22/18 17:00 Pulse Rate 95 H 08/22/18 17:00 Respiratory Rate 20 08/22/18 17:00 Blood Pressure 127/67 08/22/18 17:00 O2 Sat by Pulse Oximetry (%) 92 L 08/22/18 20:40 Labs: CBC, BMP 08/22/18 05:30 08/22/18 05:30 INR, PTT INR 1.10 (0.83-1.09) H 08/12/18 21:00 Problem List - Problems (1) Diastolic CHF Code(s): I50.30 - UNSPECIFIED DIASTOLIC (CONGESTIVE) HEART FAILURE (2) COPD exacerbation Code(s): J44.1 - CHRONIC OBSTRUCTIVE PULMONARY DISEASE W (ACUTE) EXACERBATION (3) Acute on chronic kidney failure Code(s): N17.9 - ACUTE KIDNEY FAILURE, UNSPECIFIED; N18.9 - CHRONIC KIDNEY DISEASE, UNSPECIFIED (4) Acute on chronic respiratory failure with hypoxia and hypercapnia Code(s): J96.21 - ACUTE AND CHRONIC RESPIRATORY FAILURE WITH HYPOXIA; J96.22 - ACUTE AND CHRONIC RESPIRATORY FAILURE WITH HYPERCAPNIA (5) Diabetes Code(s): E11.9 - TYPE 2 DIABETES MELLITUS WITHOUT COMPLICATIONS (6) Hyperlipidemia Code(s): E78.5 - HYPERLIPIDEMIA, UNSPECIFIED (7) Hypertension Code(s): I10 - ESSENTIAL (PRIMARY) HYPERTENSION Qualifiers: Hypertension type: unspecified Qualified Code(s): I10 - Essential (primary ) hypertension (8) Morbid obesity Code(s): E66.01 - MORBID (SEVERE) OBESITY DUE TO EXCESS CALORIES (9) Sleep apnea Code(s): G47.30 - SLEEP APNEA, UNSPECIFIED
[2018-08-23] MEDS: INSULIN SLIDING SCALE (NOVOLOG) 1 VIAL SQ SCH ×4 (06:50→21:49)
[2018-08-23] MEDS: hydrALAZINE HCL 50 MG TABLET (FP) PO SCH ×3 (06:52→21:39)
[2018-08-23] MEDS: INSULIN (NOVOLOG MIX 70/30) 100 UNITS/ML MDV SQ SCH ×2 (06:52→18:16)
[2018-08-23] MEDS: FERROUS SO4 325 MG TABLET (FP) PO SCH ×3 (06:52→21:38)
[2018-08-23] MEDS: FUROSEMIDE 40 MG/4 ML INJECTABLE VIAL IVPUSH SCH ×2 (06:52→15:35)
[2018-08-23] MEDS: GABAPENTIN 300 MG CAPSULE (FP) PO SCH ×3 (06:52→21:39)
[2018-08-23] MEDS ORDERED: PT OWN MED DRAWER 7, Y5N ONE (10:16)
[2018-08-23] MEDS: NIFEdipine E.R. 90 MG TABLET (FP) PO SCH (10:20)
[2018-08-23] MEDS: ENOXAPARIN NA (PORCINE) 60 MG/0.6 ML DISP.SYRIN SQ SCH (10:20)
[2018-08-23] MEDS: TAMSULOSIN HCL 0.4 MG CAP PO SCH (10:20)
[2018-08-23] MEDS: DOCUSATE SODIUM 100 MG CAPSULE (FP) PO SCH (10:20)
[2018-08-23] MEDS: methylPREDNISolone NA SUCC 40 MG/1 ML VIAL IVPUSH SCH ×2 (10:20→21:37)
[2018-08-23] MEDS: ASPIRIN 81 MG CHEWABLE TABLETS PO SCH (10:20)
[2018-08-23] MEDS: ISOSORBIDE MONONITRATE 30 MG TAB.SR.24H (FP) PO SCH (10:21)
[2018-08-23] MEDS: BUDESONIDE/FORMETEROL FUMARATE 160/4.5 mcg INHALER IH SCH ×2 (10:21→21:39)
[2018-08-23] MEDS: METOLAZONE 5 MG TABLET PO SCH (10:21)
[2018-08-23] MEDS: TETRACAINE/BENZOCAINE/BUTAMBEN 20 GM SPR TP SCH (10:22)
--- NOTE | 2018-08-23 11:38 | PN ---
Progress Note, Physician History of Present Illness: PULMONARY ALERT,OOB-CHAIR,-RESP DISTRESS - Current Medication List Current Medications: Active Medications Aspirin (Asa -) 81 mg PO DAILY [facility] Last Admin: 08/23/18 10:20 Dose: 81 mg Benzocaine/Butamben/Tetracaine HCl (Cetacaine [place] -) 1 spray TP DAILY [facility] Last Admin: 08/23/18 10:22 Dose: 1 spray Budesonide/Formoterol Fumarate (Symbicort 160/4.5mcg -) 1 puff IH BID [facility] Last Admin: 08/23/18 10:21 Dose: 1 puff Docusate Sodium (Colace -) 100 mg PO DAILY [facility] Last Admin: 08/23/18 10:20 Dose: 100 mg Enoxaparin Sodium (Lovenox -) 50 mg SQ DAILY [facility] Last Admin: 08/23/18 10:20 Dose: 50 mg Ferrous Sulfate (Feosol -) 325 mg PO TID [facility] Last Admin: 08/23/18 06:52 Dose: 325 mg Furosemide (Lasix Injection -) 60 mg IVPUSH BID@0600,1400 [facility] Last Admin: 08/23/18 06:52 Dose: 60 mg Gabapentin (Neurontin -) 300 mg PO TID [facility] Last Admin: 08/23/18 06:52 Dose: 300 mg Hydralazine HCl (Apresoline -) 100 mg PO TID [facility] Last Admin: 08/23/18 06:52 Dose: 100 mg Insulin Aspart (Novolog Mix 70/30 Vial) 40 units SQ BIDAC [facility] Last Admin: 08/23/18 06:52 Dose: 40 units Insulin Aspart (Novolog Vial Sliding Scale -) 1 vial SQ [facility]; Protocol Last Admin: 08/23/18 06:50 Dose: Not Given Insulin Detemir (Levemir Vial) 25 units SQ HS [facility] Last Admin: 08/22/18 22:20 Dose: 25 units Isosorbide Mononitrate (Imdur -) 60 mg PO DAILY [facility] Last Admin: 08/23/18 10:21 Dose: 60 mg Methylprednisolone Sodium Succinate (Solu-Medrol -) 30 mg IVPUSH Q12H [facility] Last Admin: 08/23/18 10:20 Dose: 30 mg Metolazone (Zaroxolyn -) 5 mg PO DAILY [facility] Last Admin: 08/23/18 10:21 Dose: 5 mg Nifedipine (Procardia Xl -) 90 mg PO DAILY [facility] Last Admin: 08/23/18 10:20 Dose: 90 mg Rosuvastatin Calcium (Crestor -) 5 mg PO HS [facility] Last Admin: 08/22/18 22:19 Dose: 5 mg Tamsulosin HCl (Flomax -) 0.4 mg PO DAILY@0830 [facility] Last Admin: 08/23/18 10:20 Dose: 0.4 mg - Objective Vital Signs: Vital Signs Temperature 97.9 F 08/23/18 02:00 Pulse Rate 93 H 08/23/18 05:47 Respiratory Rate 20 08/23/18 05:47 Blood Pressure 163/88 08/23/18 05:47 O2 Sat by Pulse Oximetry (%) 96 08/23/18 04:45 Constitutional: Yes: Calm, Obese Eyes: Yes: WNL HENT: Yes: WNL Neck: Yes: WNL Cardiovascular: Yes: Regular Rate and Rhythm, S1, S2 Respiratory: Yes: Diminished Gastrointestinal: Yes: Normal Bowel Sounds, Soft Extremities: Yes: WNL Edema: Yes Labs: CBC, BMP Problem List - Problems (1) CKD (chronic kidney disease) Code(s): N18.9 - CHRONIC KIDNEY DISEASE, UNSPECIFIED (2) COPD exacerbation Code(s): J44.1 - CHRONIC OBSTRUCTIVE PULMONARY DISEASE W (ACUTE) EXACERBATION (3) Acute exacerbation of CHF (congestive heart failure) Code(s): I50.9 - HEART FAILURE, UNSPECIFIED (4) Acute on chronic respiratory failure with hypoxia and hypercapnia Code(s): J96.21 - ACUTE AND CHRONIC RESPIRATORY FAILURE WITH HYPOXIA; J96.22 - ACUTE AND CHRONIC RESPIRATORY FAILURE WITH HYPERCAPNIA (5) Acute renal failure Code(s): N17.9 - ACUTE KIDNEY FAILURE, UNSPECIFIED (6) Diabetes Code(s): E11.9 - TYPE 2 DIABETES MELLITUS WITHOUT COMPLICATIONS (7) Hypertension Code(s): I10 - ESSENTIAL (PRIMARY) HYPERTENSION Qualifiers: Hypertension type: unspecified Qualified Code(s): I10 - Essential (primary ) hypertension (8) Morbid exogenous obesity Code(s): E66.01 - MORBID (SEVERE) OBESITY DUE TO EXCESS CALORIES (9) Morbid obesity Code(s): E66.01 - MORBID (SEVERE) OBESITY DUE TO EXCESS CALORIES (10) Obesity hypoventilation syndrome Code(s): E66.2 - MORBID (SEVERE) OBESITY WITH ALVEOLAR HYPOVENTILATION (11) Pulmonary HTN Code(s): I27.2 - OTHER SECONDARY PULMONARY HYPERTENSION * DO NOT USE * (12) Respiratory distress Code(s): R06.00 - DYSPNEA, UNSPECIFIED (13) Shortness of breath Code(s): R06.02 - SHORTNESS OF BREATH (14) Sleep apnea Code(s): G47.30 - SLEEP APNEA, UNSPECIFIED (15) Acute on chronic kidney failure Code(s): N17.9 - ACUTE KIDNEY FAILURE, UNSPECIFIED; N18.9 - CHRONIC KIDNEY DISEASE, UNSPECIFIED Assessment/Plan IMP ACUTE ON CHRONIC HYPOXEMIC RESPIRATORY FAILURE IMPROVING CHRONIC HYPOXEMIC/HYPERCAPNEIC RESPIRATORY FAILURE COPD EXACERBATION IMPROVING DIASTOLIC HF CHEST PAIN PULMONARY HTN COR PULMONALE OBESITY-HYPOVENTILATION SYNDROME ACUTE ON CHRONIC KIDNEY DISEASE HTN DM TATI PLAN NIPPV AT NIGHT AND NEEDED TO HELP REDUCE WORK OF BREATHING O2 TO MAINTAIN O2 SAT 90% OR GREATER CONTINUE MEDROL TAPER BIPAP AT NIGHT AND PRN INHALED BRONCHODILATORS LASIX DAILY WT DVT PROPHYLAXIS MONITOR LYTES,RENAL FUNCTION PT EVALUATION DR SALVADOR Problem List - Problems (1) CKD (chronic kidney disease) Code(s): N18.9 - CHRONIC KIDNEY DISEASE, UNSPECIFIED (2) COPD exacerbation Code(s): J44.1 - CHRONIC OBSTRUCTIVE PULMONARY DISEASE W (ACUTE) EXACERBATION (3) Acute exacerbation of CHF (congestive heart failure) Code(s): I50.9 - HEART FAILURE, UNSPECIFIED (4) Acute on chronic respiratory failure with hypoxia and hypercapnia Code(s): J96.21 - ACUTE AND CHRONIC RESPIRATORY FAILURE WITH HYPOXIA; J96.22 - ACUTE AND CHRONIC RESPIRATORY FAILURE WITH HYPERCAPNIA (5) Acute renal failure Code(s): N17.9 - ACUTE KIDNEY FAILURE, UNSPECIFIED (6) Diabetes Code(s): E11.9 - TYPE 2 DIABETES MELLITUS WITHOUT COMPLICATIONS (7) Hypertension Code(s): I10 - ESSENTIAL (PRIMARY) HYPERTENSION Qualifiers: Hypertension type: unspecified Qualified Code(s): I10 - Essential (primary ) hypertension (8) Morbid exogenous obesity Code(s): E66.01 - MORBID (SEVERE) OBESITY DUE TO EXCESS CALORIES (9) Morbid obesity Code(s): E66.01 - MORBID (SEVERE) OBESITY DUE TO EXCESS CALORIES (10) Obesity hypoventilation syndrome Code(s): E66.2 - MORBID (SEVERE) OBESITY WITH ALVEOLAR HYPOVENTILATION (11) Pulmonary HTN Code(s): I27.2 - OTHER SECONDARY PULMONARY HYPERTENSION * DO NOT USE * (12) Respiratory distress Code(s): R06.00 - DYSPNEA, UNSPECIFIED (13) Shortness of breath Code(s): R06.02 - SHORTNESS OF BREATH (14) Sleep apnea Code(s): G47.30 - SLEEP APNEA, UNSPECIFIED (15) Acute on chronic kidney failure Code(s): N17.9 - ACUTE KIDNEY FAILURE, UNSPECIFIED; N18.9 - CHRONIC KIDNEY DISEASE, UNSPECIFIED
--- NOTE | 2018-08-23 11:43 | PN ---
Progress Note, Physician History of Present Illness: Pt seen and examined at bedside. He is awake and alert. He feels that his breathing is improved. - Current Medication List Current Medications: Active Medications Aspirin (Asa -) 81 mg PO DAILY [facility] Last Admin: 08/23/18 10:20 Dose: 81 mg Benzocaine/Butamben/Tetracaine HCl (Cetacaine [place] -) 1 spray TP DAILY [facility] Last Admin: 08/23/18 10:22 Dose: 1 spray Budesonide/Formoterol Fumarate (Symbicort 160/4.5mcg -) 1 puff IH BID [facility] Last Admin: 08/23/18 10:21 Dose: 1 puff Docusate Sodium (Colace -) 100 mg PO DAILY [facility] Last Admin: 08/23/18 10:20 Dose: 100 mg Enoxaparin Sodium (Lovenox -) 50 mg SQ DAILY [facility] Last Admin: 08/23/18 10:20 Dose: 50 mg Ferrous Sulfate (Feosol -) 325 mg PO TID [facility] Last Admin: 08/23/18 06:52 Dose: 325 mg Furosemide (Lasix Injection -) 60 mg IVPUSH BID@0600,1400 [facility] Last Admin: 08/23/18 06:52 Dose: 60 mg Gabapentin (Neurontin -) 300 mg PO TID [facility] Last Admin: 08/23/18 06:52 Dose: 300 mg Hydralazine HCl (Apresoline -) 100 mg PO TID [facility] Last Admin: 08/23/18 06:52 Dose: 100 mg Insulin Aspart (Novolog Mix 70/30 Vial) 40 units SQ BIDAC [facility] Last Admin: 08/23/18 06:52 Dose: 40 units Insulin Aspart (Novolog Vial Sliding Scale -) 1 vial SQ [facility]; Protocol Last Admin: 08/23/18 06:50 Dose: Not Given Insulin Detemir (Levemir Vial) 25 units SQ HS [facility] Last Admin: 08/22/18 22:20 Dose: 25 units Isosorbide Mononitrate (Imdur -) 60 mg PO DAILY [facility] Last Admin: 08/23/18 10:21 Dose: 60 mg Methylprednisolone Sodium Succinate (Solu-Medrol -) 30 mg IVPUSH Q12H [facility] Last Admin: 08/23/18 10:20 Dose: 30 mg Metolazone (Zaroxolyn -) 5 mg PO DAILY [facility] Last Admin: 08/23/18 10:21 Dose: 5 mg Nifedipine (Procardia Xl -) 90 mg PO DAILY [facility] Last Admin: 08/23/18 10:20 Dose: 90 mg Rosuvastatin Calcium (Crestor -) 5 mg PO HS [facility] Last Admin: 08/22/18 22:19 Dose: 5 mg Tamsulosin HCl (Flomax -) 0.4 mg PO DAILY@0830 [facility] Last Admin: 08/23/18 10:20 Dose: 0.4 mg - Objective Vital Signs: Vital Signs Temperature 97.9 F 08/23/18 02:00 Pulse Rate 93 H 08/23/18 05:47 Respiratory Rate 20 08/23/18 05:47 Blood Pressure 163/88 08/23/18 05:47 O2 Sat by Pulse Oximetry (%) 96 08/23/18 04:45 Constitutional: Yes: Calm Eyes: Yes: Conjunctiva Clear HENT: Yes: Atraumatic Neck: Yes: Supple Cardiovascular: Yes: S1, S2 Respiratory: Yes: CTA Bilaterally, On Nasal O2 Gastrointestinal: Yes: Soft, Abdomen, Obese Genitourinary: Yes: WNL Edema: Yes Edema: LLE: Trace, RLE: Trace Neurological: Yes: Oriented Psychiatric: Yes: Oriented Labs: CBC, BMP 08/22/18 05:30 08/22/18 05:30 INR, PTT INR 1.10 (0.83-1.09) H 08/12/18 21:00 Problem List - Problems (1) CKD (chronic kidney disease) Code(s): N18.9 - CHRONIC KIDNEY DISEASE, UNSPECIFIED (2) COPD exacerbation Code(s): J44.1 - CHRONIC OBSTRUCTIVE PULMONARY DISEASE W (ACUTE) EXACERBATION (3) Acute exacerbation of CHF (congestive heart failure) Code(s): I50.9 - HEART FAILURE, UNSPECIFIED Assessment/Plan Current Medications Generic Name Dose Route Start Last Admin Trade Name Freq PRN Reason Stop Dose Admin Aspirin 81 mg 08/13/18 10:00 08/23/18 10:20 Asa - PO 81 mg DAILY [facility] Administration Benzocaine/Butamben/Tetracaine HCl 1 spray 08/21/18 13:00 08/23/18 10:22 Cetacaine [place] - TP 1 spray DAILY [facility] Administration Budesonide/Formoterol Fumarate 1 puff 08/13/18 10:00 08/23/18 10:21 Symbicort 160/4.5mcg - IH 1 puff BID [facility] Administration Docusate Sodium 100 mg 08/13/18 10:00 08/23/18 10:20 Colace - PO 100 mg DAILY [facility] Administration Enoxaparin Sodium 50 mg 08/22/18 10:00 08/23/18 10:20 Lovenox - SQ 50 mg DAILY [facility] Administration Ferrous Sulfate 325 mg 08/13/18 06:00 08/23/18 06:52 Feosol - PO 325 mg TID [facility] Administration Furosemide 60 mg 08/17/18 14:00 08/23/18 06:52 Lasix Injection - IVPUSH 60 mg BID@0600,1400 [facility] Administration Gabapentin 300 mg 08/13/18 06:00 08/23/18 06:52 Neurontin - PO 300 mg TID [facility] Administration Hydralazine HCl 100 mg 08/19/18 22:00 08/23/18 06:52 Apresoline - PO 100 mg TID [facility] Administration Insulin Aspart 40 units 08/18/18 22:49 08/23/18 06:52 Novolog Mix 70/30 Vial SQ 40 units BIDAC [facility] Administration Insulin Aspart 1 vial 08/21/18 18:39 08/23/18 06:50 Novolog Vial Sliding Scale - SQ Not Given [facility] Protocol Insulin Detemir 25 units 08/18/18 22:50 08/22/18 22:20 Levemir Vial SQ 25 units HS [facility] Administration Isosorbide Mononitrate 60 mg 08/21/18 10:00 08/23/18 10:21 Imdur - PO 60 mg DAILY [facility] Administration Methylprednisolone Sodium Succinate 30 mg 08/21/18 09:20 08/23/18 10:20 Solu-Medrol - IVPUSH 30 mg Q12H [facility] Administration Metolazone 5 mg 08/21/18 13:30 08/23/18 10:21 Zaroxolyn - PO 5 mg DAILY [facility] Administration Nifedipine 90 mg 08/13/18 10:00 08/23/18 10:20 Procardia Xl - PO 90 mg DAILY [facility] Administration Rosuvastatin Calcium 5 mg 08/13/18 22:00 08/22/18 22:19 Crestor - PO 5 mg HS [facility] Administration Tamsulosin HCl 0.4 mg 08/13/18 08:30 08/23/18 10:20 Flomax - PO 0.4 mg DAILY@0830 [facility] Administration Impression 1. CKD 2. dyspnea 3. morbid obesity 4. DM 5. HTN 6. likely sleep apnea 7. chest pain 8. hyperkalemia Plan - cont lasix and metolazone - check bmp - will attempt low dose arb if potassium stable tomorrow - cardio follow up - recommend weight loss
[2018-08-23] MEDS ORDERED: NITROGLYCERIN SUBLINGUAL 1/150 0.4 MG TAB SL ONE (12:11)
[2018-08-23] MEDS ORDERED: METOPROLOL TARTRATE 5 MG/5 ML VIAL IVPUSH ONE (12:13)
[2018-08-23] MEDS ORDERED: MORPHINE SULFATE 2 MG/ML VIAL IVPUSH ONE (12:14)
[2018-08-23] MEDS ORDERED: ASPIRIN 81 MG CHEWABLE TABLETS PO ONE (12:15)
[2018-08-23] MEDS ORDERED: HEPARIN NA (PORCINE) 5,000 UNITS/ML 1ML VIAL IVPUSH PRN (12:20)
[2018-08-23] MEDS: HEPARIN - 25,000 UNIT in SODIUM CHLORIDE 495 ML IV SCH (12:30)
--- NOTE | 2018-08-23 13:04 | PN ---
Progress Note, Physician History of Present Illness: The patient is a 47-year-old male with a past medical history significant for morbid obesity, DM, HTN, HLD, COPD (on home O2, recently increased from 2L to 4L by PCP) presents to the emergency department with chest pain, SOB and a cough. The patient presents with shortness of breath, chest pain, and productive cough with greyish-white sputum production, with mild hemoptysis. The patient reports the chest pain is sharp and pleuritic in quality, with a severity of 6/10. The patient reports the pain presented while at rest, now aggravated with exertion. The patient reports hes been noncompliant with breathing treatments secondary to problems with the machine. Denies recent travel. Denies hx of blood clots. Patient reports a history of lymphedema, with increased leg swelling. The patient reports a recent medication change by his food clerk; however, he is unsure which medication. Allergies: NKDA PCP: Dr. Sukumar Ortiz. - Current Medication List Current Medications: Active Medications Aspirin (Asa -) 81 mg PO DAILY [facility] Last Admin: 08/23/18 10:20 Dose: 81 mg Benzocaine/Butamben/Tetracaine HCl (Cetacaine [place] -) 1 spray TP DAILY [facility] Last Admin: 08/23/18 10:22 Dose: 1 spray Budesonide/Formoterol Fumarate (Symbicort 160/4.5mcg -) 1 puff IH BID [facility] Last Admin: 08/23/18 10:21 Dose: 1 puff Docusate Sodium (Colace -) 100 mg PO DAILY [facility] Last Admin: 08/23/18 10:20 Dose: 100 mg Ferrous Sulfate (Feosol -) 325 mg PO TID [facility] Last Admin: 08/23/18 06:52 Dose: 325 mg Furosemide (Lasix Injection -) 60 mg IVPUSH BID@0600,1400 [facility] Last Admin: 08/23/18 06:52 Dose: 60 mg Gabapentin (Neurontin -) 300 mg PO TID [facility] Last Admin: 08/23/18 06:52 Dose: 300 mg Heparin Sodium (Porcine) (Heparin -) 1,000 unit IVPUSH PRN PRN PRN Reason: Heparin Heparin Sodium (Porcine) (Heparin -) 5,000 unit IVPUSH PRN PRN PRN Reason: Heparin Hydralazine HCl (Apresoline -) 100 mg PO TID [facility] Last Admin: 08/23/18 06:52 Dose: 100 mg Heparin Sodium (Porcine) 25, (000 unit/ Sodium Chloride) 500 mls @ 20 mls/hr IV TITR [facility]; Protocol Insulin Aspart (Novolog Mix 70/30 Vial) 40 units SQ BIDAC [facility] Last Admin: 08/23/18 06:52 Dose: 40 units Insulin Aspart (Novolog Vial Sliding Scale -) 1 vial SQ ACHS [facility]; Protocol Last Admin: 08/23/18 11:47 Dose: Not Given Insulin Detemir (Levemir Vial) 25 units SQ HS [facility] Last Admin: 08/22/18 22:20 Dose: 25 units Isosorbide Mononitrate (Imdur -) 60 mg PO DAILY [facility] Last Admin: 08/23/18 10:21 Dose: 60 mg Methylprednisolone Sodium Succinate (Solu-Medrol -) 30 mg IVPUSH Q12H [facility] Last Admin: 08/23/18 10:20 Dose: 30 mg Metolazone (Zaroxolyn -) 5 mg PO DAILY [facility] Last Admin: 08/23/18 10:21 Dose: 5 mg Nifedipine (Procardia Xl -) 90 mg PO DAILY [facility] Last Admin: 08/23/18 10:20 Dose: 90 mg Rosuvastatin Calcium (Crestor -) 5 mg PO [facility] Last Admin: 08/22/18 22:19 Dose: 5 mg Tamsulosin HCl (Flomax -) 0.4 mg PO DAILY@0830 [facility] Last Admin: 08/23/18 10:20 Dose: 0.4 mg - Objective Vital Signs: Vital Signs Temperature 97.9 F 08/23/18 02:00 Pulse Rate 93 H 08/23/18 05:47 Respiratory Rate 20 08/23/18 05:47 Blood Pressure 163/88 08/23/18 05:47 O2 Sat by Pulse Oximetry (%) 96 08/23/18 12:12 Eyes: Yes: WNL, Conjunctiva Clear, EOM Intact HENT: Yes: WNL, Atraumatic, Normocephalic Neck: Yes: WNL, Supple, Trachea Midline Cardiovascular: Yes: WNL, Regular Rate and Rhythm Respiratory: Yes: WNL, Regular, CTA Bilaterally Gastrointestinal: Yes: WNL, Normal Bowel Sounds Genitourinary: Yes: WNL Musculoskeletal: Yes: WNL Extremities: Yes: WNL Edema: Yes Integumentary: Yes: WNL Neurological: Yes: WNL, Alert, Oriented ...Motor Strength: WNL Psychiatric: Yes: WNL Labs: CBC, BMP 08/22/18 05:30 INR, PTT INR 1.10 (0.83-1.09) H 08/12/18 21:00 Problem List - Problems (1) COPD exacerbation Code(s): J44.1 - CHRONIC OBSTRUCTIVE PULMONARY DISEASE W (ACUTE) EXACERBATION (2) Chest pain Code(s): R07.9 - CHEST PAIN, UNSPECIFIED (3) Acute exacerbation of CHF (congestive heart failure) Code(s): I50.9 - HEART FAILURE, UNSPECIFIED (4) Acute on chronic respiratory failure with hypoxia and hypercapnia Code(s): J96.21 - ACUTE AND CHRONIC RESPIRATORY FAILURE WITH HYPOXIA; J96.22 - ACUTE AND CHRONIC RESPIRATORY FAILURE WITH HYPERCAPNIA (5) Acute renal failure Code(s): N17.9 - ACUTE KIDNEY FAILURE, UNSPECIFIED (6) Back spasm Code(s): M62.830 - MUSCLE SPASM OF BACK (7) Diabetes Code(s): E11.9 - TYPE 2 DIABETES MELLITUS WITHOUT COMPLICATIONS (8) Diastolic CHF Code(s): I50.30 - UNSPECIFIED DIASTOLIC (CONGESTIVE) HEART FAILURE (9) Elevated CK Code(s): R74.8 - ABNORMAL LEVELS OF OTHER SERUM ENZYMES (10) Elevated troponin I level Code(s): R74.8 - ABNORMAL LEVELS OF OTHER SERUM ENZYMES (11) Hyperkalemia Code(s): E87.5 - HYPERKALEMIA (12) Hyperlipidemia Code(s): E78.5 - HYPERLIPIDEMIA, UNSPECIFIED (13) Hypertension Code(s): I10 - ESSENTIAL (PRIMARY) HYPERTENSION Qualifiers: Hypertension type: unspecified Qualified Code(s): I10 - Essential (primary ) hypertension (14) Kidney failure Code(s): N19 - UNSPECIFIED KIDNEY FAILURE (15) Kidney stone Code(s): N20.0 - CALCULUS OF KIDNEY (16) Morbid exogenous obesity Code(s): E66.01 - MORBID (SEVERE) OBESITY DUE TO EXCESS CALORIES (17) Morbid obesity Code(s): E66.01 - MORBID (SEVERE) OBESITY DUE TO EXCESS CALORIES (18) Obesity hypoventilation syndrome Code(s): E66.2 - MORBID (SEVERE) OBESITY WITH ALVEOLAR HYPOVENTILATION (19) Pulmonary HTN Code(s): I27.2 - OTHER SECONDARY PULMONARY HYPERTENSION * DO NOT USE * (20) Renal insufficiency Code(s): N28.9 - DISORDER OF KIDNEY AND URETER, UNSPECIFIED (21) Respiratory distress Code(s): R06.00 - DYSPNEA, UNSPECIFIED (22) Shortness of breath Code(s): R06.02 - SHORTNESS OF BREATH (23) Sleep apnea Code(s): G47.30 - SLEEP APNEA, UNSPECIFIED (24) Syncope Code(s): R55 - SYNCOPE AND COLLAPSE (25) Tachycardia Code(s): R00.0 - TACHYCARDIA, UNSPECIFIED (26) UTI (urinary tract infection) Code(s): N39.0 - URINARY TRACT INFECTION, SITE NOT SPECIFIED (27) Viral syndrome Code(s): B34.9 - VIRAL INFECTION, UNSPECIFIED Assessment/Plan Problems (1) Acute on chronic kidney failure Assessment/Plan: On fruosemide and metolazone. f/u with food clerk. Code(s): N17.9 - ACUTE KIDNEY FAILURE, UNSPECIFIED; N18.9 - CHRONIC KIDNEY DISEASE, UNSPECIFIED (2) COPD exacerbation Code(s): J44.1 - CHRONIC OBSTRUCTIVE PULMONARY DISEASE W (ACUTE) EXACERBATION (3) Acute on chronic respiratory failure with hypoxia and hypercapnia Assessment/Plan: Steroids, bronchodilators, O2, antibiotics per supervisor residential. Code(s): J96.21 - ACUTE AND CHRONIC RESPIRATORY FAILURE WITH HYPOXIA; J96.22 - ACUTE AND CHRONIC RESPIRATORY FAILURE WITH HYPERCAPNIA (4) Diastolic CHF Assessment/Plan: On nifedipine XL, hydrlazine, furosemdie, and metolazone. ECHO: normal LVEF: abnormal diastolic compliance; RV dilatation and reduced RVEF ; evidence of fluid overload (flattened ventricular septum). Code(s): I50.30 - UNSPECIFIED DIASTOLIC (CONGESTIVE) HEART FAILURE (5) Renal insufficiency Code(s): N28.9 - DISORDER OF KIDNEY AND URETER, UNSPECIFIED (6) Respiratory distress Code(s): R06.00 - DYSPNEA, UNSPECIFIED (7) Sleep apnea Code(s): G47.30 - SLEEP APNEA, UNSPECIFIED (8) Morbid obesity Code(s): E66.01 - MORBID (SEVERE) OBESITY DUE TO EXCESS CALORIES (9) Aortic root dilatation Assessment/Plan: Mild dilatation by ECHO this visit. F/u prior studies for comparison. CTA problematic due to renal dysfunction. Code(s): I77.810 - THORACIC AORTIC ECTASIA cp today- atypical- ekg no changes will start iv heparin and r/o OH by serial ekg and CE cont ASA
[2018-08-23 13:30] LABS: CREATININE 2.7 mg/dL (0.55-1.3); N-TERMINAL BNP 601.4 pg/ml (5-125); POTASSIUM 4.4 mmol/L (3.5-5.1)
--- NOTE | 2018-08-23 15:22 | RAPID ---
Physical Examination Vital Signs: Vital Signs Temperature 97.9 F 08/23/18 02:00 Pulse Rate 93 H 08/23/18 05:47 Respiratory Rate 20 08/23/18 05:47 Blood Pressure 163/88 08/23/18 05:47 O2 Sat by Pulse Oximetry (%) 96 08/23/18 12:12 Findings/Remarks: Rapid response called at approx 12pm due to patient having chest pain. On arrival, the patient was noted to be SOB and c/o left sided chest pain which radiated down his left arm. The patient states that he has felt a similar pain in the past, but it has never had the pain this bad. Patient states that the pain is not reproducible. Patient's BP was 116/111 with a HR 101 and Constitutional: Yes: Well Nourished, Calm, Moderate Distress HENT: Yes: Atraumatic, Normocephalic Neck: Yes: Supple, Trachea Midline Cardiovascular: Yes: Regular Rate and Rhythm, S1, S2, S3. No: JVD, Gallop, Murmur, Rub Respiratory: Yes: Regular, CTA Bilaterally Gastrointestinal: Yes: Soft, Abdomen, Obese Edema: No Neurological: Yes: Alert, Oriented, Cran Nerves II-XII Intact Labs: CBC, BMP 08/22/18 05:30 08/23/18 12:51 Rapid Response - Rapid Response Assessment: Patient w/ history of cardiac problems. This pattern of chest pain concerning for unstable angina/ acute cardiac event. In this Obese patient w/ SOB, pulmonary embolism is also on the differential, albeit less likely. Recommendations/Interventions: -ordered EKG, trop, D-dimer -will administer SL nitro for angina -Will administer 5mg lopressor IV -will administer 2mg morphine for pain -there is concern for acute coronary event; will load patient w/ 162 of ASA ( got 81 mg earlier in the day) and start heparin GTT -case discussed w/ cardiology, who is in agreement with the above plan. -Attempted to reach Dr. Nixon to inform her of change in pt status, awaiting call back.
--- NOTE | 2018-08-23 21:26 | PN ---
Progress Note (short form) - Note Progress Note: UROLOGY NOTE. consult dictated. pt. will have a diuretic nuclear renal scan to r/o post-renal azotemia
[2018-08-23] MEDS: ROSUVASTATIN CA 5 MG TABLET (FP) PO SCH (21:39)
[2018-08-23] MEDS: INSULIN (LEVEMIR) 100 UNITS/ML UNITS SQ SCH (21:39)
[2018-08-23] MEDS: HEPARIN NA (PORCINE) 5,000 UNITS/ML 1ML VIAL IVPUSH PRN (21:41)
--- NOTE | 2018-08-23 22:02 | CONS ---
DATE OF CONSULTATION: DATE OF DICTATION: 08/23/2018 Patient is a 47-year-old male admitted via the emergency room on August 12, 2018. He has history of severe COPD requiring 4 L of home O2. He also has history of chronic kidney disease. He is morbidly obese, hypertensive, as well as a diabetic. In the emergency room, he was short of breath and states that he has worsening lower extremity swelling. The patient was not taking his diuretics over the past week. He does have some urinary frequency and urgency. He does wake up 2-3 times at night. Besides the above history, he also has hyperlipidemia, pulmonary hypertension, and is morbidly obese. He is planning to undergo bariatric surgery after obtaining medical clearance. He also has history of bronchitis as well as anxiety. He has undergone bilateral arthroscopies. He denies any ethanolism or tobacco use. He denies any allergies. PHYSICAL EXAMINATION: General: A morbidly obese, adult male with nasal O2 cannula and appears to be short of breath. His latest urinalysis is positive for blood, but negative for nitrites. His white count is 12.1. His platelets were 287. His hemoglobin is 12.1 and hematocrit 39.6. His BUN was 96 and creatinine 2.7. Random glucose is 100. The patient did have a renal ultrasound several days ago, and that revealed both kidneys to be poorly visualized and small with no evidence of hydronephrosis or nephrolithiasis. The patient's prostate is +, firm, and slightly tender. Patient's urine culture revealed no growth. IMPRESSION AT PRESENT: Azotemia, most likely renal in origin. Will recommend a diuretic nuclear renal scan to rule out any obstructive component. Will follow with you. Carter [id number]
--- NOTE | 2018-08-23 23:41 | PN ---
Progress Note, Physician History of Present Illness: Events of rapid response noted Pt w/ chest pain - Current Medication List Current Medications: Active Medications Aspirin (Asa -) 81 mg PO DAILY [facility] Last Admin: 08/23/18 10:20 Dose: 81 mg Benzocaine/Butamben/Tetracaine HCl (Cetacaine [place] -) 1 spray TP DAILY [facility] Last Admin: 08/23/18 10:22 Dose: 1 spray Budesonide/Formoterol Fumarate (Symbicort 160/4.5mcg -) 1 puff IH BID [facility] Last Admin: 08/23/18 21:39 Dose: 1 puff Docusate Sodium (Colace -) 100 mg PO DAILY [facility] Last Admin: 08/23/18 10:20 Dose: 100 mg Ferrous Sulfate (Feosol -) 325 mg PO TID [facility] Last Admin: 08/23/18 21:38 Dose: 325 mg Furosemide (Lasix Injection -) 60 mg IVPUSH BID@0600,1400 [facility] Last Admin: 08/23/18 15:35 Dose: 60 mg Gabapentin (Neurontin -) 300 mg PO TID [facility] Last Admin: 08/23/18 21:39 Dose: 300 mg Heparin Sodium (Porcine) (Heparin -) 1,000 unit IVPUSH PRN PRN PRN Reason: Heparin Last Admin: 08/23/18 21:41 Dose: 1,000 unit Heparin Sodium (Porcine) (Heparin -) 5,000 unit IVPUSH PRN PRN PRN Reason: Heparin Hydralazine HCl (Apresoline -) 100 mg PO TID [facility] Last Admin: 08/23/18 21:39 Dose: 100 mg Heparin Sodium (Porcine) 25, (000 unit/ Sodium Chloride) 500 mls @ 20 mls/hr IV TITR [facility]; Protocol Last Admin: 08/23/18 12:30 Dose: 1,000 unit/hr, 20 mls/hr Insulin Aspart (Novolog Mix 70/30 Vial) 40 units SQ BIDAC [facility] Last Admin: 08/23/18 18:16 Dose: 40 units Insulin Aspart (Novolog Vial Sliding Scale -) 1 vial SQ ACHS [facility]; Protocol Last Admin: 08/23/18 21:49 Dose: 8 units Insulin Detemir (Levemir Vial) 25 units SQ HS [facility] Last Admin: 08/23/18 21:39 Dose: 25 units Isosorbide Mononitrate (Imdur -) 60 mg PO DAILY [facility] Last Admin: 08/23/18 10:21 Dose: 60 mg Methylprednisolone Sodium Succinate (Solu-Medrol -) 30 mg IVPUSH Q12H [facility] Last Admin: 08/23/18 21:37 Dose: 30 mg Metolazone (Zaroxolyn -) 5 mg PO DAILY [facility] Last Admin: 08/23/18 10:21 Dose: 5 mg Nifedipine (Procardia Xl -) 90 mg PO DAILY [facility] Last Admin: 08/23/18 10:20 Dose: 90 mg Rosuvastatin Calcium (Crestor -) 5 mg PO HS [facility] Last Admin: 08/23/18 21:39 Dose: 5 mg Tamsulosin HCl (Flomax -) 0.4 mg PO DAILY@0830 [facility] Last Admin: 08/23/18 10:20 Dose: 0.4 mg - Objective Vital Signs: Vital Signs Temperature 97.7 F 08/23/18 14:55 Pulse Rate 101 H 08/23/18 15:38 Respiratory Rate 22 H 08/23/18 14:55 Blood Pressure 141/90 08/23/18 15:38 O2 Sat by Pulse Oximetry (%) 96 08/23/18 12:12 Constitutional: Yes: Obese HENT: Yes: WNL Neck: Yes: WNL, Supple Cardiovascular: Yes: WNL, Regular Rate and Rhythm Respiratory: Yes: Diminished Gastrointestinal: Yes: WNL, Normal Bowel Sounds, Soft, Abdomen, Obese, Other ((+ ) lesion cleft of buttock) Labs: CBC, BMP 08/22/18 05:30 08/23/18 12:51 INR, PTT INR 1.10 (0.83-1.09) H 08/12/18 21:00 Problem List - Problems (1) Diastolic CHF Code(s): I50.30 - UNSPECIFIED DIASTOLIC (CONGESTIVE) HEART FAILURE (2) COPD exacerbation Code(s): J44.1 - CHRONIC OBSTRUCTIVE PULMONARY DISEASE W (ACUTE) EXACERBATION (3) Acute on chronic kidney failure Code(s): N17.9 - ACUTE KIDNEY FAILURE, UNSPECIFIED; N18.9 - CHRONIC KIDNEY DISEASE, UNSPECIFIED (4) Acute on chronic respiratory failure with hypoxia and hypercapnia Code(s): J96.21 - ACUTE AND CHRONIC RESPIRATORY FAILURE WITH HYPOXIA; J96.22 - ACUTE AND CHRONIC RESPIRATORY FAILURE WITH HYPERCAPNIA (5) Diabetes Code(s): E11.9 - TYPE 2 DIABETES MELLITUS WITHOUT COMPLICATIONS (6) Hyperlipidemia Code(s): E78.5 - HYPERLIPIDEMIA, UNSPECIFIED (7) Hypertension Code(s): I10 - ESSENTIAL (PRIMARY) HYPERTENSION Qualifiers: Hypertension type: unspecified Qualified Code(s): I10 - Essential (primary ) hypertension (8) Morbid obesity Code(s): E66.01 - MORBID (SEVERE) OBESITY DUE TO EXCESS CALORIES (9) Sleep apnea Code(s): G47.30 - SLEEP APNEA, UNSPECIFIED (10) Abscess Code(s): L02.91 - CUTANEOUS ABSCESS, UNSPECIFIED (11) Chest pain Code(s): R07.9 - CHEST PAIN, UNSPECIFIED
[2018-08-24] MEDS: hydrALAZINE HCL 50 MG TABLET (FP) PO SCH ×2 (06:17→15:34)
[2018-08-24] MEDS: FERROUS SO4 325 MG TABLET (FP) PO SCH ×2 (06:17→15:34)
[2018-08-24] MEDS: GABAPENTIN 300 MG CAPSULE (FP) PO SCH ×2 (06:17→15:34)
[2018-08-24] MEDS: INSULIN (NOVOLOG MIX 70/30) 100 UNITS/ML MDV SQ SCH ×2 (06:20→17:47)
[2018-08-24] MEDS: INSULIN SLIDING SCALE (NOVOLOG) 1 VIAL SQ SCH ×3 (06:21→17:47)
[2018-08-24] MEDS: FUROSEMIDE 40 MG/4 ML INJECTABLE VIAL IVPUSH SCH ×2 (06:59→16:33)
[2018-08-24 08:35] LABS: ALBUMIN 3.2 g/dl (3.4-5.0); BILIRUBIN,TOTAL 1.4 mg/dL (0.2-1); CALCIUM 8.5 mg/dL (8.5-10.1); CREATININE 2.9 mg/dL (0.55-1.3); POTASSIUM 4.4 mmol/L (3.5-5.1); TOT PROT 6.7 g/dl (6.4-8.2)
[2018-08-24] MEDS: NIFEdipine E.R. 90 MG TABLET (FP) PO SCH (09:48)
[2018-08-24] MEDS: TAMSULOSIN HCL 0.4 MG CAP PO SCH (09:49)
[2018-08-24] MEDS: ISOSORBIDE MONONITRATE 30 MG TAB.SR.24H (FP) PO SCH (09:49)
[2018-08-24] MEDS: DOCUSATE SODIUM 100 MG CAPSULE (FP) PO SCH (09:49)
[2018-08-24] MEDS: ASPIRIN 81 MG CHEWABLE TABLETS PO SCH (09:49)
[2018-08-24] MEDS: METOLAZONE 5 MG TABLET PO SCH (09:49)
[2018-08-24] MEDS: BUDESONIDE/FORMETEROL FUMARATE 160/4.5 mcg INHALER IH SCH (09:50)
[2018-08-24] MEDS: TETRACAINE/BENZOCAINE/BUTAMBEN 20 GM SPR TP SCH (09:53)
[2018-08-24] MEDS: LOSARTAN POTASSIUM 25 MG TABLET PO SCH (09:54)
--- NOTE | 2018-08-24 10:37 | PN ---
Progress Note, Physician History of Present Illness: PULMONARY ALERT,COMFORTABLE,-RESP DISTRESS,-CP - Current Medication List Current Medications: Active Medications Aspirin (Asa -) 81 mg PO DAILY [facility] Last Admin: 08/24/18 09:49 Dose: 81 mg Benzocaine/Butamben/Tetracaine HCl (Cetacaine [place] -) 1 spray TP DAILY [facility] Last Admin: 08/24/18 09:53 Dose: 1 spray Budesonide/Formoterol Fumarate (Symbicort 160/4.5mcg -) 1 puff IH BID [facility] Last Admin: 08/24/18 09:50 Dose: 1 puff Docusate Sodium (Colace -) 100 mg PO DAILY [facility] Last Admin: 08/24/18 09:49 Dose: 100 mg Ferrous Sulfate (Feosol -) 325 mg PO TID [facility] Last Admin: 08/24/18 06:17 Dose: 325 mg Furosemide (Lasix Injection -) 60 mg IVPUSH BID@0600,1400 [facility] Last Admin: 08/24/18 06:59 Dose: 60 mg Gabapentin (Neurontin -) 300 mg PO TID [facility] Last Admin: 08/24/18 06:17 Dose: 300 mg Heparin Sodium (Porcine) (Heparin -) 1,000 unit IVPUSH PRN PRN PRN Reason: Heparin Last Admin: 08/23/18 21:41 Dose: 1,000 unit Heparin Sodium (Porcine) (Heparin -) 5,000 unit IVPUSH PRN PRN PRN Reason: Heparin Hydralazine HCl (Apresoline -) 100 mg PO TID [facility] Last Admin: 08/24/18 06:17 Dose: 100 mg Heparin Sodium (Porcine) 25, (000 unit/ Sodium Chloride) 500 mls @ 20 mls/hr IV TITR [facility]; Protocol Last Titration: 08/23/18 21:39 Dose: 1,100 unit/hr, 22 mls/hr Insulin Aspart (Novolog Mix 70/30 Vial) 40 units SQ BIDAC [facility] Last Admin: 08/24/18 06:20 Dose: 40 units Insulin Aspart (Novolog Vial Sliding Scale -) 1 vial SQ ACHS [facility]; Protocol Last Admin: 08/24/18 06:21 Dose: 8 units Insulin Detemir (Levemir Vial) 25 units SQ HS [facility] Last Admin: 08/23/18 21:39 Dose: 25 units Isosorbide Mononitrate (Imdur -) 60 mg PO DAILY [facility] Last Admin: 08/24/18 09:49 Dose: 60 mg Losartan Potassium (Cozaar -) 25 mg PO DAILY [facility] Last Admin: 08/24/18 09:54 Dose: 25 mg Methylprednisolone Sodium Succinate (Solu-Medrol -) 30 mg IVPUSH Q12H [facility] Last Admin: 08/23/18 21:37 Dose: 30 mg Metolazone (Zaroxolyn -) 5 mg PO DAILY [facility] Last Admin: 08/24/18 09:49 Dose: 5 mg Nifedipine (Procardia Xl -) 90 mg PO DAILY [facility] Last Admin: 08/24/18 09:48 Dose: 90 mg Rosuvastatin Calcium (Crestor -) 5 mg PO HS [facility] Last Admin: 08/23/18 21:39 Dose: 5 mg Tamsulosin HCl (Flomax -) 0.4 mg PO DAILY@0830 [facility] Last Admin: 08/24/18 09:49 Dose: 0.4 mg - Objective Vital Signs: Vital Signs Temperature 98.1 F 08/24/18 06:00 Pulse Rate 84 08/24/18 06:00 Respiratory Rate 20 08/24/18 06:00 Blood Pressure 141/80 08/24/18 06:00 O2 Sat by Pulse Oximetry (%) 96 08/23/18 22:00 Constitutional: Yes: Calm, Obese Eyes: Yes: WNL HENT: Yes: WNL Neck: Yes: WNL Cardiovascular: Yes: Regular Rate and Rhythm, S1, S2 Labs: CBC, BMP 08/22/18 05:30 08/24/18 05:40 INR, PTT INR 1.10 (0.83-1.09) H 08/12/18 21:00 Problem List - Problems (1) CKD (chronic kidney disease) Code(s): N18.9 - CHRONIC KIDNEY DISEASE, UNSPECIFIED (2) COPD exacerbation Code(s): J44.1 - CHRONIC OBSTRUCTIVE PULMONARY DISEASE W (ACUTE) EXACERBATION (3) Acute exacerbation of CHF (congestive heart failure) Code(s): I50.9 - HEART FAILURE, UNSPECIFIED (4) Acute on chronic respiratory failure with hypoxia and hypercapnia Code(s): J96.21 - ACUTE AND CHRONIC RESPIRATORY FAILURE WITH HYPOXIA; J96.22 - ACUTE AND CHRONIC RESPIRATORY FAILURE WITH HYPERCAPNIA (5) Acute renal failure Code(s): N17.9 - ACUTE KIDNEY FAILURE, UNSPECIFIED (6) Diabetes Code(s): E11.9 - TYPE 2 DIABETES MELLITUS WITHOUT COMPLICATIONS (7) Hypertension Code(s): I10 - ESSENTIAL (PRIMARY) HYPERTENSION Qualifiers: Hypertension type: unspecified Qualified Code(s): I10 - Essential (primary ) hypertension (8) Morbid exogenous obesity Code(s): E66.01 - MORBID (SEVERE) OBESITY DUE TO EXCESS CALORIES (9) Morbid obesity Code(s): E66.01 - MORBID (SEVERE) OBESITY DUE TO EXCESS CALORIES (10) Obesity hypoventilation syndrome Code(s): E66.2 - MORBID (SEVERE) OBESITY WITH ALVEOLAR HYPOVENTILATION (11) Pulmonary HTN Code(s): I27.2 - OTHER SECONDARY PULMONARY HYPERTENSION * DO NOT USE * (12) Respiratory distress Code(s): R06.00 - DYSPNEA, UNSPECIFIED (13) Shortness of breath Code(s): R06.02 - SHORTNESS OF BREATH (14) Sleep apnea Code(s): G47.30 - SLEEP APNEA, UNSPECIFIED (15) Acute on chronic kidney failure Code(s): N17.9 - ACUTE KIDNEY FAILURE, UNSPECIFIED; N18.9 - CHRONIC KIDNEY DISEASE, UNSPECIFIED
[2018-08-24] MEDS: methylPREDNISolone NA SUCC 40 MG/1 ML VIAL IVPUSH SCH (11:04)
[2018-08-24] MEDS: HEPARIN - 25,000 UNIT in SODIUM CHLORIDE 495 ML IV SCH (11:12)
--- NOTE | 2018-08-24 14:45 | PN ---
Progress Note, Physician History of Present Illness: Pt seen and examined at bedside. He is awake and alert. He had chest pain and is now on a heparin drip. - Current Medication List Current Medications: Active Medications Aspirin (Asa -) 81 mg PO DAILY [facility] Last Admin: 08/24/18 09:49 Dose: 81 mg Benzocaine/Butamben/Tetracaine HCl (Cetacaine [place] -) 1 spray TP DAILY [facility] Last Admin: 08/24/18 09:53 Dose: 1 spray Budesonide/Formoterol Fumarate (Symbicort 160/4.5mcg -) 1 puff IH BID [facility] Last Admin: 08/24/18 09:50 Dose: 1 puff Docusate Sodium (Colace -) 100 mg PO DAILY [facility] Last Admin: 08/24/18 09:49 Dose: 100 mg Ferrous Sulfate (Feosol -) 325 mg PO TID [facility] Last Admin: 08/24/18 06:17 Dose: 325 mg Furosemide (Lasix Injection -) 60 mg IVPUSH BID@0600,1400 [facility] Last Admin: 08/24/18 06:59 Dose: 60 mg Gabapentin (Neurontin -) 300 mg PO TID [facility] Last Admin: 08/24/18 06:17 Dose: 300 mg Heparin Sodium (Porcine) (Heparin -) 1,000 unit IVPUSH PRN PRN PRN Reason: Heparin Last Admin: 08/23/18 21:41 Dose: 1,000 unit Heparin Sodium (Porcine) (Heparin -) 5,000 unit IVPUSH PRN PRN PRN Reason: Heparin Hydralazine HCl (Apresoline -) 100 mg PO TID [facility] Last Admin: 08/24/18 06:17 Dose: 100 mg Heparin Sodium (Porcine) 25, (000 unit/ Sodium Chloride) 500 mls @ 20 mls/hr IV TITR [facility]; Protocol Last Admin: 08/24/18 11:12 Dose: 1,100 unit/hr, 22 mls/hr Insulin Aspart (Novolog Mix 70/30 Vial) 40 units SQ BIDAC [facility] Last Admin: 08/24/18 06:20 Dose: 40 units Insulin Aspart (Novolog Vial Sliding Scale -) 1 vial SQ ACHS [facility]; Protocol Last Admin: 08/24/18 11:54 Dose: Not Given Insulin Detemir (Levemir Vial) 25 units SQ HS [facility] Last Admin: 08/23/18 21:39 Dose: 25 units Isosorbide Mononitrate (Imdur -) 60 mg PO DAILY [facility] Last Admin: 08/24/18 09:49 Dose: 60 mg Losartan Potassium (Cozaar -) 25 mg PO DAILY [facility] Last Admin: 08/24/18 09:54 Dose: 25 mg Methylprednisolone Sodium Succinate (Solu-Medrol -) 30 mg IVPUSH Q12H [facility] Last Admin: 08/24/18 11:04 Dose: 30 mg Metolazone (Zaroxolyn -) 5 mg PO DAILY [facility] Last Admin: 08/24/18 09:49 Dose: 5 mg Nifedipine (Procardia Xl -) 90 mg PO DAILY [facility] Last Admin: 08/24/18 09:48 Dose: 90 mg Rosuvastatin Calcium (Crestor -) 5 mg PO HS [facility] Last Admin: 08/23/18 21:39 Dose: 5 mg Tamsulosin HCl (Flomax -) 0.4 mg PO DAILY@0830 [facility] Last Admin: 08/24/18 09:49 Dose: 0.4 mg - Objective Vital Signs: Vital Signs Temperature 98.1 F 08/24/18 06:00 Pulse Rate 84 08/24/18 06:00 Respiratory Rate 20 08/24/18 06:00 Blood Pressure 141/80 08/24/18 06:00 O2 Sat by Pulse Oximetry (%) 96 08/23/18 22:00 Constitutional: Yes: Calm Eyes: Yes: Conjunctiva Clear HENT: Yes: Atraumatic Neck: Yes: Supple Cardiovascular: Yes: S1, S2 Respiratory: Yes: On Nasal O2 Gastrointestinal: Yes: Soft, Abdomen, Obese Musculoskeletal: Yes: WNL Edema: Yes Edema: LLE: 1+, RLE: 1+ Neurological: Yes: Oriented Psychiatric: Yes: Oriented Labs: CBC, BMP 08/22/18 05:30 08/24/18 05:40 INR, PTT INR 1.10 (0.83-1.09) H 08/12/18 21:00 Problem List - Problems (1) CKD (chronic kidney disease) Code(s): N18.9 - CHRONIC KIDNEY DISEASE, UNSPECIFIED (2) COPD exacerbation Code(s): J44.1 - CHRONIC OBSTRUCTIVE PULMONARY DISEASE W (ACUTE) EXACERBATION (3) Acute exacerbation of CHF (congestive heart failure) Code(s): I50.9 - HEART FAILURE, UNSPECIFIED Assessment/Plan Current Medications Generic Name Dose Route Start Last Admin Trade Name Freq PRN Reason Stop Dose Admin Aspirin 81 mg 08/13/18 10:00 08/24/18 09:49 Asa - PO 81 mg DAILY [facility] Administration Benzocaine/Butamben/Tetracaine HCl 1 spray 08/21/18 13:00 08/24/18 09:53 Cetacaine [place] - TP 1 spray DAILY [facility] Administration Budesonide/Formoterol Fumarate 1 puff 08/13/18 10:00 08/24/18 09:50 Symbicort 160/4.5mcg - IH 1 puff BID [facility] Administration Docusate Sodium 100 mg 08/13/18 10:00 08/24/18 09:49 Colace - PO 100 mg DAILY [facility] Administration Ferrous Sulfate 325 mg 08/13/18 06:00 08/24/18 06:17 Feosol - PO 325 mg TID [facility] Administration Furosemide 60 mg 08/17/18 14:00 08/24/18 06:59 Lasix Injection - IVPUSH 60 mg BID@0600,1400 [facility] Administration Gabapentin 300 mg 08/13/18 06:00 08/24/18 06:17 Neurontin - PO 300 mg TID [facility] Administration Heparin Sodium (Porcine) 1,000 unit 08/23/18 12:20 08/23/18 21:41 Heparin - IVPUSH 1,000 unit PRN PRN Administration Heparin Heparin Sodium (Porcine) 5,000 unit 08/23/18 12:20 Heparin - IVPUSH PRN PRN Heparin Hydralazine HCl 100 mg 08/19/18 22:00 08/24/18 06:17 Apresoline - PO 100 mg TID [facility] Administration Heparin Sodium (Porcine) 25, 500 mls @ 20 mls/hr 08/23/18 12:30 08/24/18 11: 12 000 unit/ Sodium Chloride IV 1,100 unit/hr TITR [facility] 22 mls/hr Administration Protocol 1,000 UNIT/HR Insulin Aspart 40 units 08/18/18 22:49 08/24/18 06:20 Novolog Mix 70/30 Vial SQ 40 units BIDAC [facility] Administration Insulin Aspart 1 vial 08/21/18 18:39 08/24/18 11:54 Novolog Vial Sliding Scale - SQ Not Given ACHS [facility] Protocol Insulin Detemir 25 units 05/29/19 22:50 08/23/18 21:39 Levemir Vial SQ 25 units HS [facility] Administration Isosorbide Mononitrate 60 mg 08/21/18 10:00 08/24/18 09:49 Imdur - PO 60 mg DAILY [facility] Administration Losartan Potassium 25 mg 08/24/18 10:00 08/24/18 09:54 Cozaar - PO 25 mg DAILY [facility] Administration Methylprednisolone Sodium Succinate 30 mg 08/21/18 09:20 08/24/18 11:04 Solu-Medrol - IVPUSH 30 mg Q12H [facility] Administration Metolazone 5 mg 08/21/18 13:30 08/24/18 09:49 Zaroxolyn - PO 5 mg DAILY [facility] Administration Nifedipine 90 mg 08/13/18 10:00 08/24/18 09:48 Procardia Xl - PO 90 mg DAILY [facility] Administration Rosuvastatin Calcium 5 mg 08/13/18 22:00 08/23/18 21:39 Crestor - PO 5 mg HS [facility] Administration Tamsulosin HCl 0.4 mg 08/13/18 08:30 08/24/18 09:49 Flomax - PO 0.4 mg DAILY@0830 [facility] Administration Impression 1. CKD 2. dyspnea 3. morbid obesity 4. DM 5. HTN 6. likely sleep apnea 7. chest pain 8. hyperkalemia Plan - cont diuretics - cardio input appreciated - monitor on losartan - cont lasix and metolazone - recommend weight loss
--- NOTE | 2018-08-24 15:44 | PN ---
Progress Note, Physician Chief Complaint: Pt A&OX3; denies chest pain, dyspnea; occasional cough. History of Present Illness: The patient is a 47-year-old black male with a past medical history significant for morbid obesity, DM, HTN, HLD, COPD (on home O2, recently increased from 2L to 4L by PCP) presents to the emergency department with chest pain, SOB and a cough. The patient presents with shortness of breath, chest pain, and productive cough with greyish-white sputum production, with mild hemoptysis. The patient reports the chest pain is sharp and pleuritic in quality, with a severity of 6/10. The patient reports the pain presented while at rest, now aggravated with exertion. The patient reports hes been noncompliant with breathing treatments secondary to problems with the machine. Denies recent travel. Denies hx of blood clots. Patient reports a history of lymphedema, with increased leg and scrotal swelling. The patient reports a recent medication change by his tile presser; however, he is unsure which medication. Allergies: NKDA PCP: Dr. Sukumar Ortiz. - Current Medication List Current Medications: Active Medications Aspirin (Asa -) 81 mg PO DAILY [facility] Last Admin: 08/24/18 09:49 Dose: 81 mg Benzocaine/Butamben/Tetracaine HCl (Cetacaine [place] -) 1 spray TP DAILY [facility] Last Admin: 08/24/18 09:53 Dose: 1 spray Budesonide/Formoterol Fumarate (Symbicort 160/4.5mcg -) 1 puff IH BID [facility] Last Admin: 08/24/18 09:50 Dose: 1 puff Docusate Sodium (Colace -) 100 mg PO DAILY [facility] Last Admin: 08/24/18 09:49 Dose: 100 mg Ferrous Sulfate (Feosol -) 325 mg PO TID [facility] Last Admin: 08/24/18 15:34 Dose: 325 mg Furosemide (Lasix Injection -) 60 mg IVPUSH BID@0600,1400 [facility] Last Admin: 08/24/18 06:59 Dose: 60 mg Gabapentin (Neurontin -) 300 mg PO TID [facility] Last Admin: 08/24/18 15:34 Dose: 300 mg Heparin Sodium (Porcine) (Heparin -) 1,000 unit IVPUSH PRN PRN PRN Reason: Heparin Last Admin: 08/23/18 21:41 Dose: 1,000 unit Heparin Sodium (Porcine) (Heparin -) 5,000 unit IVPUSH PRN PRN PRN Reason: Heparin Hydralazine HCl (Apresoline -) 100 mg PO TID [facility] Last Admin: 08/24/18 15:34 Dose: 100 mg Heparin Sodium (Porcine) 25, (000 unit/ Sodium Chloride) 500 mls @ 20 mls/hr IV TITR [facility]; Protocol Last Admin: 08/24/18 11:12 Dose: 1,100 unit/hr, 22 mls/hr Insulin Aspart (Novolog Mix 70/30 Vial) 40 units SQ BIDAC [facility] Last Admin: 08/24/18 06:20 Dose: 40 units Insulin Aspart (Novolog Vial Sliding Scale -) 1 vial SQ ACHS [facility]; Protocol Last Admin: 08/24/18 11:54 Dose: Not Given Insulin Detemir (Levemir Vial) 25 units SQ HS [facility] Last Admin: 08/23/18 21:39 Dose: 25 units Isosorbide Mononitrate (Imdur -) 60 mg PO DAILY [facility] Last Admin: 08/24/18 09:49 Dose: 60 mg Losartan Potassium (Cozaar -) 25 mg PO DAILY [facility] Last Admin: 08/24/18 09:54 Dose: 25 mg Methylprednisolone Sodium Succinate (Solu-Medrol -) 30 mg IVPUSH Q12H [facility] Last Admin: 08/24/18 11:04 Dose: 30 mg Metolazone (Zaroxolyn -) 5 mg PO DAILY [facility] Last Admin: 08/24/18 09:49 Dose: 5 mg Nifedipine (Procardia Xl -) 90 mg PO DAILY [facility] Last Admin: 08/24/18 09:48 Dose: 90 mg Rosuvastatin Calcium (Crestor -) 5 mg PO HS [facility] Last Admin: 08/23/18 21:39 Dose: 5 mg Tamsulosin HCl (Flomax -) 0.4 mg PO DAILY@0830 [facility] Last Admin: 08/24/18 09:49 Dose: 0.4 mg - Objective Vital Signs: Vital Signs Temperature 98.1 F 08/24/18 06:00 Pulse Rate 84 08/24/18 06:00 Respiratory Rate 20 08/24/18 06:00 Blood Pressure 141/80 08/24/18 06:00 O2 Sat by Pulse Oximetry (%) 96 08/23/18 22:00 Constitutional: Yes: Calm Eyes: Yes: WNL HENT: Yes: WNL Neck: Yes: WNL Cardiovascular: Yes: S1, S2 Respiratory: Yes: Diminished, Tachypnea Gastrointestinal: Yes: Abdomen, Obese ...Rectal Exam: Yes: Deferred Genitourinary: No: Anuria Breast(s): Yes: WNL Musculoskeletal: Yes: Joint Stiffness, Joint Swelling, Muscle Weakness Extremities: Yes: Cool Edema: Yes Peripheral Pulses WNL: No Peripheral Pulses: Left Doralis Pedis: 1+, Right Dorsalis Pedis: 1+ Integumentary: Yes: Venous Stasis Changes, Other Wound/Incision: Yes: Open to air Neurological: Yes: Alert, Oriented, Weakness Psychiatric: Yes: Alert, Oriented, Other (depression) Labs: CBC, BMP 08/22/18 05:30 08/24/18 05:40 INR, PTT INR 1.10 (0.83-1.09) H 08/12/18 21:00 Abnormal Lab Results 08/25/18 08/25/18 05:55 05:55 WBC 12.5 H MCHC 30.6 L RDW 18.1 H PTT (Actin FS) 43.5 H - ....Imaging Other: Image Reviewed Problem List - Problems (1) Acute on chronic kidney failure Assessment/Plan: On fruosemide and metolazone. f/u with tile presser. Code(s): N17.9 - ACUTE KIDNEY FAILURE, UNSPECIFIED; N18.9 - CHRONIC KIDNEY DISEASE, UNSPECIFIED (2) COPD exacerbation Code(s): J44.1 - CHRONIC OBSTRUCTIVE PULMONARY DISEASE W (ACUTE) EXACERBATION (3) Acute on chronic respiratory failure with hypoxia and hypercapnia Assessment/Plan: Steroids, bronchodilators, O2, antibiotics per animal rehabilitator. Code(s): J96.21 - ACUTE AND CHRONIC RESPIRATORY FAILURE WITH HYPOXIA; J96.22 - ACUTE AND CHRONIC RESPIRATORY FAILURE WITH HYPERCAPNIA (4) Diastolic CHF Assessment/Plan: On nifedipine XL, hydrlazine, furosemide, and metolazone; Imdur added. ECHO: normal LVEF: abnormal diastolic compliance; RV dilatation and reduced RVEF ; evidence of fluid overload (flattened ventricular septum). F/u BUN/Cr, electrolytes, daily weight, Is and Os. Code(s): I50.30 - UNSPECIFIED DIASTOLIC (CONGESTIVE) HEART FAILURE (5) Renal insufficiency Code(s): N28.9 - DISORDER OF KIDNEY AND URETER, UNSPECIFIED (6) Respiratory distress Code(s): R06.00 - DYSPNEA, UNSPECIFIED (7) Sleep apnea Code(s): G47.30 - SLEEP APNEA, UNSPECIFIED (8) Morbid obesity Assessment/Plan: Pt has had discussions in the past regarding gastric bypass surgery. See under "depression". Code(s): E66.01 - MORBID (SEVERE) OBESITY DUE TO EXCESS CALORIES (9) Aortic root dilatation Assessment/Plan: Mild dilatation by ECHO this visit. F/u prior studies for comparison. CTA problematic due to renal dysfunction. Code(s): I77.810 - THORACIC AORTIC ECTASIA (10) Knee pain Assessment/Plan: bilateral knee pain; hx bilateral arthroscopic surgery. Code(s): M25.569 - PAIN IN UNSPECIFIED KNEE (11) Depression Assessment/Plan: Pt's former work associate, who says she is Lupillo's "substitute mother"(his biological mother a few months ago), says he has had periods of severe depression for many years. A few years ago, he had to be admitted to [facility] psychiatric floor. He has talked of committing suicde in the past. When his sister a few years ago, and upon his mother's , he gained abou 100 lbs within amonth each time. She says he "loves starches"; while confined at home, he calls out constantly for fast food in large portions. She took him to gastric bypass surgeon at [facility]; Cindy was considered at high risk for surgery. F/u with psychologist/psychiatrist. f/u with systems librarian. Code(s): F32.9 - MAJOR DEPRESSIVE DISORDER, SINGLE EPISODE, UNSPECIFIED
[2018-08-24] MEDS ORDERED: INSULIN (NOVOLOG) ASPART 100 UNITS/ML 10ML VIAL ONE (17:45)
--- NOTE | 2018-08-24 20:33 | CONSULT ---
Consult Consult Specialty:: Surgery - History of Present Illness Chief Complaint: r/o back abscess History of Present Illness: 47 yo man admitted with morbid obesity admitted 08/12 with sob and chest pain he has been on steroids and diuretics for treatment of copd and chf referred for possible back abscess Patient states he has haf a cystic mass of intergluteal fold for quite sometime with intermittent drainage of seropurulent thick fluid. Had noted drainage even prior to current admission and had I & D in the past at PMD's office. Denies pain or tenderness at this time. - History Source History Provided By: Patient - Past Medical History Cardio/Vascular: Yes: HTN, Hyperlipdemia, Pulmonary Hypertension, Other (morbid obesity; sedentary) Pulmonary: Yes: Bronchitis, COPD Renal/: Yes: Renal Inusuff Psych: Yes: Anxiety Endocrine: Yes: Diabetes Mellitus - Past Surgical History Past Surgical History: Yes: Arthrosocopy (b/l knees) - Alcohol/Substance Use Hx Alcohol Use: No History of Substance Use: reports: None - Smoking History Smoking history: Unknown if ever smoked Have you smoked in the past 12 months: No Aproximately how many cigarettes per day: 0 If you are a former smoker, when did you quit?: 1998 - Social History Usual Living Arrangement: Other (with family) ADL: Family Assistance History of Recent Travel: No Home Medications - Allergies Allergies/Adverse Reactions: Allergies Allergy/AdvReac Type Severity Reaction Status Date / Time No Known Allergies Allergy Verified 08/12/18 20:42 - Home Medications Home Medications: Ambulatory Orders Aspirin 81 mg PO DAILY 08/13/18 Gabapentin [Neurontin -] 300 mg PO Q8H 08/13/18 Hydralazine HCl 25 mg PO TID 08/13/18 Omeprazole 20 mg PO DAILY 08/13/18 Rosuvastatin [Crestor -] 5 mg PO HS 08/13/18 Family Disease History - Family Disease History Family Disease History: Diabetes: Grandparent, Father, Heart Disease: Father, CA : Mother Review of Systems - Review of Systems Integumentary: reports: Lump (at intergluteal fold with a draining sinus) Physical Exam Vital Signs: Vital Signs Temperature 98.4 F 08/24/18 14:15 Pulse Rate 98 H 08/24/18 14:15 Respiratory Rate 22 H 08/24/18 14:15 Blood Pressure 129/73 08/24/18 14:15 O2 Sat by Pulse Oximetry (%) 96 08/24/18 10:00 Constitutional: Yes: Other (morbidly obese) HENT: Yes: Normocephalic Gastrointestinal: Yes: Soft, Abdomen, Obese Integumentary: Yes: Other (4 x 2 cm cystic mass at intergluteal fold with a small sinus. No erythema, no tenderness on digital pressure of the mass and no drainage noted) Labs: CBC, BMP 08/22/18 05:30 08/24/18 05:40 Problem List - Problems (1) Pilonidal cyst Assessment/Plan: with chronic draining sinus. No sign of pilonidal abscess at this time R/o other source of leukocytosis If leukocytosis persist, will consider needle aspiration of cyst after holding AC. Will follow. Code(s): L05.91 - PILONIDAL CYST WITHOUT ABSCESS
--- NOTE | 2018-08-24 22:29 | PN ---
Progress Note, Physician History of Present Illness: No new complaints - Current Medication List Current Medications: Active Medications Aspirin (Asa -) 81 mg PO DAILY [facility] Last Admin: 08/24/18 09:49 Dose: 81 mg Benzocaine/Butamben/Tetracaine HCl (Cetacaine [place] -) 1 spray TP DAILY [facility] Last Admin: 08/24/18 09:53 Dose: 1 spray Budesonide/Formoterol Fumarate (Symbicort 160/4.5mcg -) 1 puff IH BID [facility] Last Admin: 08/24/18 09:50 Dose: 1 puff Docusate Sodium (Colace -) 100 mg PO DAILY [facility] Last Admin: 08/24/18 09:49 Dose: 100 mg Ferrous Sulfate (Feosol -) 325 mg PO TID [facility] Last Admin: 08/24/18 15:34 Dose: 325 mg Furosemide (Lasix Injection -) 60 mg IVPUSH BID@0600,1400 [facility] Last Admin: 08/24/18 16:33 Dose: 60 mg Gabapentin (Neurontin -) 300 mg PO TID [facility] Last Admin: 08/24/18 15:34 Dose: 300 mg Heparin Sodium (Porcine) (Heparin -) 1,000 unit IVPUSH PRN PRN PRN Reason: Heparin Last Admin: 08/23/18 21:41 Dose: 1,000 unit Heparin Sodium (Porcine) (Heparin -) 5,000 unit IVPUSH PRN PRN PRN Reason: Heparin Hydralazine HCl (Apresoline -) 100 mg PO TID [facility] Last Admin: 08/24/18 15:34 Dose: 100 mg Heparin Sodium (Porcine) 25, (000 unit/ Sodium Chloride) 500 mls @ 20 mls/hr IV TITR [facility]; Protocol Last Admin: 08/24/18 11:12 Dose: 1,100 unit/hr, 22 mls/hr Insulin Aspart (Novolog Mix 70/30 Vial) 40 units SQ BIDAC [facility] Last Admin: 08/24/18 17:47 Dose: 40 units Insulin Aspart (Novolog Vial Sliding Scale -) 1 vial SQ ACHS [facility]; Protocol Last Admin: 08/24/18 17:47 Dose: 9 units Insulin Detemir (Levemir Vial) 25 units SQ HS [facility] Last Admin: 08/23/18 21:39 Dose: 25 units Isosorbide Mononitrate (Imdur -) 60 mg PO DAILY [facility] Last Admin: 08/24/18 09:49 Dose: 60 mg Losartan Potassium (Cozaar -) 25 mg PO DAILY [facility] Last Admin: 08/24/18 09:54 Dose: 25 mg Methylprednisolone Sodium Succinate (Solu-Medrol -) 30 mg IVPUSH Q12H [facility] Last Admin: 08/24/18 11:04 Dose: 30 mg Metolazone (Zaroxolyn -) 5 mg PO DAILY [facility] Last Admin: 08/24/18 09:49 Dose: 5 mg Nifedipine (Procardia Xl -) 90 mg PO DAILY [facility] Last Admin: 08/24/18 09:48 Dose: 90 mg Rosuvastatin Calcium (Crestor -) 5 mg PO HS [facility] Last Admin: 08/23/18 21:39 Dose: 5 mg Tamsulosin HCl (Flomax -) 0.4 mg PO DAILY@0830 [facility] Last Admin: 08/24/18 09:49 Dose: 0.4 mg - Objective Vital Signs: Vital Signs Temperature 98.4 F 08/24/18 14:15 Pulse Rate 98 H 08/24/18 14:15 Respiratory Rate 22 H 08/24/18 14:15 Blood Pressure 129/73 08/24/18 14:15 O2 Sat by Pulse Oximetry (%) 96 08/24/18 10:00 Constitutional: Yes: Obese Neck: Yes: WNL, Supple Cardiovascular: Yes: WNL, Regular Rate and Rhythm Respiratory: Yes: Diminished Gastrointestinal: Yes: WNL, Normal Bowel Sounds, Soft, Abdomen, Obese Edema: LLE: Trace, RLE: Trace Integumentary: Yes: Other (gluteal cyst) Labs: CBC, BMP 08/22/18 05:30 08/24/18 05:40 INR, PTT INR 1.10 (0.83-1.09) H 08/12/18 21:00 Problem List - Problems (1) Diastolic CHF Assessment/Plan: Acute on chronic diastolic heart failure Cont IV lasix Cont diuresis Code(s): I50.30 - UNSPECIFIED DIASTOLIC (CONGESTIVE) HEART FAILURE (2) COPD exacerbation Assessment/Plan: Cont IV sterpoids Cont nebulizers Code(s): J44.1 - CHRONIC OBSTRUCTIVE PULMONARY DISEASE W (ACUTE) EXACERBATION (3) Acute on chronic kidney failure Assessment/Plan: Cont to monitor labs Code(s): N17.9 - ACUTE KIDNEY FAILURE, UNSPECIFIED; N18.9 - CHRONIC KIDNEY DISEASE, UNSPECIFIED (4) Acute on chronic respiratory failure with hypoxia and hypercapnia Code(s): J96.21 - ACUTE AND CHRONIC RESPIRATORY FAILURE WITH HYPOXIA; J96.22 - ACUTE AND CHRONIC RESPIRATORY FAILURE WITH HYPERCAPNIA (5) Diabetes Assessment/Plan: Cont sliding scale w/ coverage Code(s): E11.9 - TYPE 2 DIABETES MELLITUS WITHOUT COMPLICATIONS (6) Hyperlipidemia Assessment/Plan: Cont statin Code(s): E78.5 - HYPERLIPIDEMIA, UNSPECIFIED (7) Hypertension Assessment/Plan: BP stable Cont antihypertensives Code(s): I10 - ESSENTIAL (PRIMARY) HYPERTENSION Qualifiers: Hypertension type: unspecified Qualified Code(s): I10 - Essential (primary ) hypertension (8) Morbid obesity Code(s): E66.01 - MORBID (SEVERE) OBESITY DUE TO EXCESS CALORIES (9) Sleep apnea Code(s): G47.30 - SLEEP APNEA, UNSPECIFIED (10) Abscess Assessment/Plan: As per surgery no intervention at this time Code(s): L02.91 - CUTANEOUS ABSCESS, UNSPECIFIED (11) Chest pain Code(s): R07.9 - CHEST PAIN, UNSPECIFIED
[2018-08-25] MEDS: methylPREDNISolone NA SUCC 40 MG/1 ML VIAL IVPUSH SCH ×4 (00:18→22:44)
[2018-08-25] MEDS: hydrALAZINE HCL 50 MG TABLET (FP) PO SCH ×4 (00:18→22:43)
[2018-08-25] MEDS: ROSUVASTATIN CA 5 MG TABLET (FP) PO SCH ×2 (00:19→22:43)
[2018-08-25] MEDS: BUDESONIDE/FORMETEROL FUMARATE 160/4.5 mcg INHALER IH SCH ×3 (00:19→22:44)
[2018-08-25] MEDS: FERROUS SO4 325 MG TABLET (FP) PO SCH ×4 (00:19→22:44)
[2018-08-25] MEDS: GABAPENTIN 300 MG CAPSULE (FP) PO SCH ×4 (00:19→22:43)
[2018-08-25] MEDS: INSULIN (LEVEMIR) 100 UNITS/ML UNITS SQ SCH ×2 (00:26→23:00)
[2018-08-25] MEDS: INSULIN SLIDING SCALE (NOVOLOG) 1 VIAL SQ SCH ×5 (00:27→23:01)
[2018-08-25] MEDS: FUROSEMIDE 40 MG/4 ML INJECTABLE VIAL IVPUSH SCH ×2 (06:26→14:27)
[2018-08-25] MEDS: INSULIN (NOVOLOG MIX 70/30) 100 UNITS/ML MDV SQ SCH ×2 (06:39→17:53)
[2018-08-25 07:57] LABS: HEMATOCRIT 38.5 % (35.4-49); HEMOGLOBIN 11.8 GM/dL (11.7-16.9); MCH 27.3 pg (25.7-33.7); MCHC 30.6 g/dl (32.0-35.9); MEAN CELL VOLUME 89.4 fl (80-96); MEAN PLT VOLUME 8.7 fl (7.5-11.1); PLATELET COUNT 276 K/MM3 (134-434); RBC 4.31 M/mm3 (4.00-5.60); RDW 18.1 % (11.9-15.9); WHITE BLOOD COUNT 12.5 K/mm3 (4.0-10.0)
[2018-08-25] MEDS: DOCUSATE SODIUM 100 MG CAPSULE (FP) PO SCH ×3 (10:00→22:44)
[2018-08-25] MEDS: ISOSORBIDE MONONITRATE 30 MG TAB.SR.24H (FP) PO SCH (10:00)
[2018-08-25] MEDS: LOSARTAN POTASSIUM 25 MG TABLET PO SCH (10:01)
[2018-08-25] MEDS: METOLAZONE 5 MG TABLET PO SCH (10:02)
[2018-08-25] MEDS: ASPIRIN 81 MG CHEWABLE TABLETS PO SCH (10:02)
[2018-08-25] MEDS: TAMSULOSIN HCL 0.4 MG CAP PO SCH (10:02)
[2018-08-25] MEDS: HEPARIN NA (PORCINE) 5,000 UNITS/ML 1ML VIAL IVPUSH PRN (10:08)
[2018-08-25] MEDS: TETRACAINE/BENZOCAINE/BUTAMBEN 20 GM SPR TP SCH (10:09)
[2018-08-25] MEDS: NIFEdipine E.R. 90 MG TABLET (FP) PO SCH (10:20)
--- NOTE | 2018-08-25 10:50 | PN ---
Progress Note, Physician History of Present Illness: pulmonary alert,oob-chair,comfortable,-resp distress,-cp - Current Medication List Current Medications: Active Medications Aspirin (Asa -) 81 mg PO DAILY [facility] Last Admin: 08/25/18 10:02 Dose: 81 mg Benzocaine/Butamben/Tetracaine HCl (Cetacaine [place] -) 1 spray TP DAILY [facility] Last Admin: 08/25/18 10:09 Dose: Not Given Budesonide/Formoterol Fumarate (Symbicort 160/4.5mcg -) 1 puff IH BID [facility] Last Admin: 08/25/18 10:09 Dose: 1 puff Docusate Sodium (Colace -) 100 mg PO DAILY [facility] Last Admin: 08/25/18 10:00 Dose: 100 mg Ferrous Sulfate (Feosol -) 325 mg PO TID [facility] Last Admin: 08/25/18 06:27 Dose: 325 mg Furosemide (Lasix Injection -) 60 mg IVPUSH BID@0600,1400 [facility] Last Admin: 08/25/18 06:26 Dose: 60 mg Gabapentin (Neurontin -) 300 mg PO TID [facility] Last Admin: 08/25/18 06:24 Dose: 300 mg Heparin Sodium (Porcine) (Heparin -) 1,000 unit IVPUSH PRN PRN PRN Reason: Heparin Last Admin: 08/25/18 10:08 Dose: 1,000 unit Heparin Sodium (Porcine) (Heparin -) 5,000 unit IVPUSH PRN PRN PRN Reason: Heparin Hydralazine HCl (Apresoline -) 100 mg PO TID [facility] Last Admin: 08/25/18 06:24 Dose: 100 mg Heparin Sodium (Porcine) 25, (000 unit/ Sodium Chloride) 500 mls @ 20 mls/hr IV TITR [facility]; Protocol Last Titration: 08/25/18 10:03 Dose: 1,200 unit/hr, 24 mls/hr Insulin Aspart (Novolog Mix 70/30 Vial) 40 units SQ BIDAC [facility] Last Admin: 08/25/18 06:39 Dose: 40 units Insulin Aspart (Novolog Vial Sliding Scale -) 1 vial SQ ACHS [facility]; Protocol Last Admin: 08/25/18 06:40 Dose: Not Given Insulin Detemir (Levemir Vial) 25 units SQ HS [facility] Last Admin: 08/25/18 00:26 Dose: 25 units Isosorbide Mononitrate (Imdur -) 60 mg PO DAILY [facility] Last Admin: 08/25/18 10:00 Dose: 60 mg Losartan Potassium (Cozaar -) 25 mg PO DAILY [facility] Last Admin: 08/25/18 10:01 Dose: 25 mg Methylprednisolone Sodium Succinate (Solu-Medrol -) 30 mg IVPUSH Q12H [facility] Last Admin: 08/25/18 10:07 Dose: 30 mg Metolazone (Zaroxolyn -) 5 mg PO DAILY [facility] Last Admin: 08/25/18 10:02 Dose: 5 mg Nifedipine (Procardia Xl -) 90 mg PO DAILY [facility] Last Admin: 08/25/18 10:20 Dose: 90 mg Rosuvastatin Calcium (Crestor -) 5 mg PO HS [facility] Last Admin: 08/25/18 00:19 Dose: 5 mg Tamsulosin HCl (Flomax -) 0.4 mg PO DAILY@0830 [facility] Last Admin: 08/25/18 10:02 Dose: 0.4 mg - Objective Vital Signs: Vital Signs Temperature 98.4 F 08/25/18 06:00 Pulse Rate 90 08/25/18 06:00 Respiratory Rate 20 08/25/18 06:00 Blood Pressure 151/86 08/25/18 06:00 O2 Sat by Pulse Oximetry (%) 97 08/25/18 06:05 Constitutional: Yes: Calm, Obese Eyes: Yes: WNL HENT: Yes: WNL Neck: Yes: WNL Cardiovascular: Yes: Regular Rate and Rhythm, S1, S2 Respiratory: Yes: CTA Bilaterally Gastrointestinal: Yes: Normal Bowel Sounds, Abdomen, Obese Extremities: Yes: WNL Edema: Yes Labs: CBC, BMP 08/25/18 05:55 08/24/18 05:40 INR, PTT INR 1.10 (0.83-1.09) H 08/12/18 21:00 Problem List - Problems (1) CKD (chronic kidney disease) Code(s): N18.9 - CHRONIC KIDNEY DISEASE, UNSPECIFIED (2) COPD exacerbation Code(s): J44.1 - CHRONIC OBSTRUCTIVE PULMONARY DISEASE W (ACUTE) EXACERBATION (3) Acute exacerbation of CHF (congestive heart failure) Code(s): I50.9 - HEART FAILURE, UNSPECIFIED (4) Acute on chronic respiratory failure with hypoxia and hypercapnia Code(s): J96.21 - ACUTE AND CHRONIC RESPIRATORY FAILURE WITH HYPOXIA; J96.22 - ACUTE AND CHRONIC RESPIRATORY FAILURE WITH HYPERCAPNIA (5) Acute renal failure Code(s): N17.9 - ACUTE KIDNEY FAILURE, UNSPECIFIED (6) Diabetes Code(s): E11.9 - TYPE 2 DIABETES MELLITUS WITHOUT COMPLICATIONS (7) Hypertension Code(s): I10 - ESSENTIAL (PRIMARY) HYPERTENSION Qualifiers: Hypertension type: unspecified Qualified Code(s): I10 - Essential (primary ) hypertension (8) Morbid exogenous obesity Code(s): E66.01 - MORBID (SEVERE) OBESITY DUE TO EXCESS CALORIES (9) Morbid obesity Code(s): E66.01 - MORBID (SEVERE) OBESITY DUE TO EXCESS CALORIES (10) Obesity hypoventilation syndrome Code(s): E66.2 - MORBID (SEVERE) OBESITY WITH ALVEOLAR HYPOVENTILATION (11) Pulmonary HTN Code(s): I27.2 - OTHER SECONDARY PULMONARY HYPERTENSION * DO NOT USE * (12) Respiratory distress Code(s): R06.00 - DYSPNEA, UNSPECIFIED (13) Shortness of breath Code(s): R06.02 - SHORTNESS OF BREATH (14) Sleep apnea Code(s): G47.30 - SLEEP APNEA, UNSPECIFIED (15) Acute on chronic kidney failure Code(s): N17.9 - ACUTE KIDNEY FAILURE, UNSPECIFIED; N18.9 - CHRONIC KIDNEY DISEASE, UNSPECIFIED Assessment/Plan IMP ACUTE ON CHRONIC HYPOXEMIC RESPIRATORY FAILURE IMPROVING CHRONIC HYPOXEMIC/HYPERCAPNEIC RESPIRATORY FAILURE COPD EXACERBATION IMPROVING DIASTOLIC HF CHEST PAIN PULMONARY HTN COR PULMONALE OBESITY-HYPOVENTILATION SYNDROME ACUTE ON CHRONIC KIDNEY DISEASE HTN DM TATI PLAN NIPPV AT NIGHT AND NEEDED TO HELP REDUCE WORK OF BREATHING O2 TO MAINTAIN O2 SAT 90% OR GREATER CONTINUE MEDROL TAPER BIPAP AT NIGHT AND PRN INHALED BRONCHODILATORS LASIX DAILY WT DVT PROPHYLAXIS MONITOR LYTES,RENAL FUNCTION DR SALVADOR Problem List - Problems (1) CKD (chronic kidney disease) Code(s): N18.9 - CHRONIC KIDNEY DISEASE, UNSPECIFIED (2) COPD exacerbation Code(s): J44.1 - CHRONIC OBSTRUCTIVE PULMONARY DISEASE W (ACUTE) EXACERBATION (3) Acute exacerbation of CHF (congestive heart failure) Code(s): I50.9 - HEART FAILURE, UNSPECIFIED (4) Acute on chronic respiratory failure with hypoxia and hypercapnia Code(s): J96.21 - ACUTE AND CHRONIC RESPIRATORY FAILURE WITH HYPOXIA; J96.22 - ACUTE AND CHRONIC RESPIRATORY FAILURE WITH HYPERCAPNIA (5) Acute renal failure Code(s): N17.9 - ACUTE KIDNEY FAILURE, UNSPECIFIED (6) Diabetes Code(s): E11.9 - TYPE 2 DIABETES MELLITUS WITHOUT COMPLICATIONS (7) Hypertension Code(s): I10 - ESSENTIAL (PRIMARY) HYPERTENSION Qualifiers: Hypertension type: unspecified Qualified Code(s): I10 - Essential (primary ) hypertension (8) Morbid exogenous obesity Code(s): E66.01 - MORBID (SEVERE) OBESITY DUE TO EXCESS CALORIES (9) Morbid obesity Code(s): E66.01 - MORBID (SEVERE) OBESITY DUE TO EXCESS CALORIES (10) Obesity hypoventilation syndrome Code(s): E66.2 - MORBID (SEVERE) OBESITY WITH ALVEOLAR HYPOVENTILATION (11) Pulmonary HTN Code(s): I27.2 - OTHER SECONDARY PULMONARY HYPERTENSION * DO NOT USE * (12) Respiratory distress Code(s): R06.00 - DYSPNEA, UNSPECIFIED (13) Shortness of breath Code(s): R06.02 - SHORTNESS OF BREATH (14) Sleep apnea Code(s): G47.30 - SLEEP APNEA, UNSPECIFIED (15) Acute on chronic kidney failure Code(s): N17.9 - ACUTE KIDNEY FAILURE, UNSPECIFIED; N18.9 - CHRONIC KIDNEY DISEASE, UNSPECIFIED
--- NOTE | 2018-08-25 11:47 | PN ---
Progress Note, Physician History of Present Illness: Pt seen and examined at bedside. He feels that his breathing is improved. - Current Medication List Current Medications: Active Medications Aspirin (Asa -) 81 mg PO DAILY [facility] Last Admin: 08/25/18 10:02 Dose: 81 mg Benzocaine/Butamben/Tetracaine HCl (Cetacaine [place] -) 1 spray TP DAILY [facility] Last Admin: 08/25/18 10:09 Dose: Not Given Budesonide/Formoterol Fumarate (Symbicort 160/4.5mcg -) 1 puff IH BID [facility] Last Admin: 08/25/18 10:09 Dose: 1 puff Docusate Sodium (Colace -) 100 mg PO DAILY [facility] Last Admin: 08/25/18 10:00 Dose: 100 mg Ferrous Sulfate (Feosol -) 325 mg PO TID [facility] Last Admin: 08/25/18 06:27 Dose: 325 mg Furosemide (Lasix Injection -) 60 mg IVPUSH BID@0600,1400 [facility] Last Admin: 08/25/18 06:26 Dose: 60 mg Gabapentin (Neurontin -) 300 mg PO TID [facility] Last Admin: 08/25/18 06:24 Dose: 300 mg Heparin Sodium (Porcine) (Heparin -) 1,000 unit IVPUSH PRN PRN PRN Reason: Heparin Last Admin: 08/25/18 10:08 Dose: 1,000 unit Heparin Sodium (Porcine) (Heparin -) 5,000 unit IVPUSH PRN PRN PRN Reason: Heparin Hydralazine HCl (Apresoline -) 100 mg PO TID [facility] Last Admin: 08/25/18 06:24 Dose: 100 mg Heparin Sodium (Porcine) 25, (000 unit/ Sodium Chloride) 500 mls @ 20 mls/hr IV TITR [facility]; Protocol Last Titration: 08/25/18 10:03 Dose: 1,200 unit/hr, 24 mls/hr Insulin Aspart (Novolog Mix 70/30 Vial) 40 units SQ BIDAC [facility] Last Admin: 08/25/18 06:39 Dose: 40 units Insulin Aspart (Novolog Vial Sliding Scale -) 1 vial SQ ACHS [facility]; Protocol Last Admin: 08/25/18 06:40 Dose: Not Given Insulin Detemir (Levemir Vial) 25 units SQ HS [facility] Last Admin: 08/25/18 00:26 Dose: 25 units Isosorbide Mononitrate (Imdur -) 60 mg PO DAILY [facility] Last Admin: 08/25/18 10:00 Dose: 60 mg Losartan Potassium (Cozaar -) 25 mg PO DAILY [facility] Last Admin: 08/25/18 10:01 Dose: 25 mg Methylprednisolone Sodium Succinate (Solu-Medrol -) 20 mg IVPUSH Q12H [facility] Metolazone (Zaroxolyn -) 5 mg PO DAILY [facility] Last Admin: 08/25/18 10:02 Dose: 5 mg Nifedipine (Procardia Xl -) 90 mg PO DAILY [facility] Last Admin: 08/25/18 10:20 Dose: 90 mg Rosuvastatin Calcium (Crestor -) 5 mg PO HS [facility] Last Admin: 08/25/18 00:19 Dose: 5 mg Tamsulosin HCl (Flomax -) 0.4 mg PO DAILY@0830 [facility] Last Admin: 08/25/18 10:02 Dose: 0.4 mg - Objective Vital Signs: Vital Signs Temperature 98.4 F 08/25/18 06:00 Pulse Rate 90 08/25/18 06:00 Respiratory Rate 20 08/25/18 06:00 Blood Pressure 151/86 08/25/18 06:00 O2 Sat by Pulse Oximetry (%) 97 08/25/18 06:05 Constitutional: Yes: Calm Eyes: Yes: Conjunctiva Clear HENT: Yes: Atraumatic Neck: Yes: Supple Cardiovascular: Yes: S1, S2 Respiratory: Yes: CTA Bilaterally, On Nasal O2 Gastrointestinal: Yes: Soft, Abdomen, Obese Musculoskeletal: Yes: WNL Edema: Yes Neurological: Yes: Oriented Psychiatric: Yes: Oriented Labs: CBC, BMP 08/25/18 05:55 08/24/18 05:40 INR, PTT INR 1.10 (0.83-1.09) H 08/12/18 21:00 Problem List - Problems (1) CKD (chronic kidney disease) Code(s): N18.9 - CHRONIC KIDNEY DISEASE, UNSPECIFIED (2) COPD exacerbation Code(s): J44.1 - CHRONIC OBSTRUCTIVE PULMONARY DISEASE W (ACUTE) EXACERBATION (3) Acute exacerbation of CHF (congestive heart failure) Code(s): I50.9 - HEART FAILURE, UNSPECIFIED Assessment/Plan Current Medications Generic Name Dose Route Start Last Admin Trade Name Freq PRN Reason Stop Dose Admin Aspirin 81 mg 08/13/18 10:00 08/25/18 10:02 Asa - PO 81 mg DAILY [facility] Administration Benzocaine/Butamben/Tetracaine HCl 1 spray 08/21/18 13:00 08/25/18 10:09 Cetacaine [place] - TP Not Given DAILY [facility] Budesonide/Formoterol Fumarate 1 puff 08/13/18 10:00 08/25/18 10:09 Symbicort 160/4.5mcg - IH 1 puff BID [facility] Administration Docusate Sodium 100 mg 08/13/18 10:00 08/25/18 10:00 Colace - PO 100 mg DAILY [facility] Administration Ferrous Sulfate 325 mg 08/13/18 06:00 08/25/18 06:27 Feosol - PO 325 mg TID [facility] Administration Furosemide 60 mg 08/17/18 14:00 08/25/18 06:26 Lasix Injection - IVPUSH 60 mg BID@0600,1400 [facility] Administration Gabapentin 300 mg 08/13/18 06:00 08/25/18 06:24 Neurontin - PO 300 mg TID [facility] Administration Heparin Sodium (Porcine) 1,000 unit 08/23/18 12:20 08/25/18 10:08 Heparin - IVPUSH 1,000 unit PRN PRN Administration Heparin Heparin Sodium (Porcine) 5,000 unit 08/23/18 12:20 Heparin - IVPUSH PRN PRN Heparin Hydralazine HCl 100 mg 08/19/18 22:00 08/25/18 06:24 Apresoline - PO 100 mg TID [facility] Administration Heparin Sodium (Porcine) 25, 500 mls @ 20 mls/hr 08/23/18 12:30 08/25/18 10: 03 000 unit/ Sodium Chloride IV 1,200 unit/hr TITR [facility] 24 mls/hr Titration Protocol 1,000 UNIT/HR Insulin Aspart 40 units 08/18/18 22:49 08/25/18 06:39 Novolog Mix 70/30 Vial SQ 40 units BIDAC [facility] Administration Insulin Aspart 1 vial 08/21/18 18:39 08/25/18 06:40 Novolog Vial Sliding Scale - SQ Not Given ACHS [facility] Protocol Insulin Detemir 25 units 08/18/18 22:50 08/25/18 00:26 Levemir Vial SQ 25 units HS [facility] Administration Isosorbide Mononitrate 60 mg 08/21/18 10:00 08/25/18 10:00 Imdur - PO 60 mg DAILY [facility] Administration Losartan Potassium 25 mg 08/24/18 10:00 08/25/18 10:01 Cozaar - PO 25 mg DAILY [facility] Administration Methylprednisolone Sodium Succinate 20 mg 08/25/18 10:51 Solu-Medrol - IVPUSH Q12H [facility] Metolazone 5 mg 08/21/18 13:30 08/25/18 10:02 Zaroxolyn - PO 5 mg DAILY [facility] Administration Nifedipine 90 mg 08/13/18 10:00 08/25/18 10:20 Procardia Xl - PO 90 mg DAILY [facility] Administration Rosuvastatin Calcium 5 mg 08/13/18 22:00 08/25/18 00:19 Crestor - PO 5 mg HS [facility] Administration Tamsulosin HCl 0.4 mg 08/13/18 08:30 08/25/18 10:02 Flomax - PO 0.4 mg DAILY@0830 [facility] Administration Impression 1. CKD 2. dyspnea 3. morbid obesity 4. DM 5. HTN 6. likely sleep apnea 7. chest pain 8. hyperkalemia Plan - cont lasix - check bmp - increase colace dose - give senna - recommend weight loss
[2018-08-25] MEDS ORDERED: SENNOSIDES 8.6MG TABLET (FP) PO ONE (11:48)
--- NOTE | 2018-08-25 11:56 | PN ---
Progress Note, Physician History of Present Illness: The patient is a 47-year-old male with a past medical history significant for morbid obesity, DM, HTN, HLD, COPD (on home O2, recently increased from 2L to 4L by PCP) presents to the emergency department with chest pain, SOB and a cough. The patient presents with shortness of breath, chest pain, and productive cough with greyish-white sputum production, with mild hemoptysis. The patient reports the chest pain is sharp and pleuritic in quality, with a severity of 6/10. The patient reports the pain presented while at rest, now aggravated with exertion. The patient reports hes been noncompliant with breathing treatments secondary to problems with the machine. Denies recent travel. Denies hx of blood clots. Patient reports a history of lymphedema, with increased leg swelling. 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 Allergies: NKDA PCP: Dr. Sukumar Ortiz. - Current Medication List Current Medications: Active Medications Aspirin (Asa -) 81 mg PO DAILY [facility] Last Admin: 08/25/18 10:02 Dose: 81 mg Benzocaine/Butamben/Tetracaine HCl (Cetacaine [place] -) 1 spray TP DAILY [facility] Last Admin: 08/25/18 10:09 Dose: Not Given Budesonide/Formoterol Fumarate (Symbicort 160/4.5mcg -) 1 puff IH BID [facility] Last Admin: 08/25/18 10:09 Dose: 1 puff Docusate Sodium (Colace -) 100 mg PO Q8H [facility] Ferrous Sulfate (Feosol -) 325 mg PO TID [facility] Last Admin: 08/25/18 06:27 Dose: 325 mg Furosemide (Lasix Injection -) 60 mg IVPUSH BID@0600,1400 [facility] Last Admin: 08/25/18 06:26 Dose: 60 mg Gabapentin (Neurontin -) 300 mg PO TID [facility] Last Admin: 08/25/18 06:24 Dose: 300 mg Heparin Sodium (Porcine) (Heparin -) 1,000 unit IVPUSH PRN PRN PRN Reason: Heparin Last Admin: 08/25/18 10:08 Dose: 1,000 unit Heparin Sodium (Porcine) (Heparin -) 5,000 unit IVPUSH PRN PRN PRN Reason: Heparin Hydralazine HCl (Apresoline -) 100 mg PO TID [facility] Last Admin: 08/25/18 06:24 Dose: 100 mg Heparin Sodium (Porcine) 25, (000 unit/ Sodium Chloride) 500 mls @ 20 mls/hr IV TITR [facility]; Protocol Last Titration: 08/25/18 10:03 Dose: 1,200 unit/hr, 24 mls/hr Insulin Aspart (Novolog Mix 70/30 Vial) 40 units SQ BIDAC [facility] Last Admin: 08/25/18 06:39 Dose: 40 units Insulin Aspart (Novolog Vial Sliding Scale -) 1 vial SQ ACHS [facility]; Protocol Last Admin: 08/25/18 06:40 Dose: Not Given Insulin Detemir (Levemir Vial) 25 units SQ HS [facility] Last Admin: 08/25/18 00:26 Dose: 25 units Isosorbide Mononitrate (Imdur -) 60 mg PO DAILY [facility] Last Admin: 08/25/18 10:00 Dose: 60 mg Losartan Potassium (Cozaar -) 25 mg PO DAILY [facility] Last Admin: 08/25/18 10:01 Dose: 25 mg Methylprednisolone Sodium Succinate (Solu-Medrol -) 20 mg IVPUSH Q12H [facility] Metolazone (Zaroxolyn -) 5 mg PO DAILY [facility] Last Admin: 08/25/18 10:02 Dose: 5 mg Nifedipine (Procardia Xl -) 90 mg PO DAILY [facility] Last Admin: 08/25/18 10:20 Dose: 90 mg Rosuvastatin Calcium (Crestor -) 5 mg PO HS [facility] Last Admin: 08/25/18 00:19 Dose: 5 mg Senna (Senna -) 2 tab PO ONCE ONE Stop: 08/25/18 11:49 Tamsulosin HCl (Flomax -) 0.4 mg PO DAILY@0830 [facility] Last Admin: 08/25/18 10:02 Dose: 0.4 mg - Objective Vital Signs: Vital Signs Temperature 98.4 F 08/25/18 06:00 Pulse Rate 90 08/25/18 06:00 Respiratory Rate 20 08/25/18 06:00 Blood Pressure 151/86 08/25/18 06:00 O2 Sat by Pulse Oximetry (%) 97 08/25/18 06:05 Eyes: Yes: WNL, Conjunctiva Clear, EOM Intact HENT: Yes: WNL, Atraumatic, Normocephalic Neck: Yes: WNL, Supple, Trachea Midline Cardiovascular: Yes: WNL, Regular Rate and Rhythm Respiratory: Yes: WNL, Regular, CTA Bilaterally Gastrointestinal: Yes: WNL, Normal Bowel Sounds Genitourinary: Yes: WNL Musculoskeletal: Yes: WNL Extremities: Yes: WNL Edema: Yes Integumentary: Yes: WNL Neurological: Yes: WNL, Alert, Oriented ...Motor Strength: WNL Psychiatric: Yes: WNL Labs: CBC, BMP 08/25/18 05:55 08/24/18 05:40 INR, PTT INR 1.10 (0.83-1.09) H 08/12/18 21:00 Problem List - Problems (1) COPD exacerbation Code(s): J44.1 - CHRONIC OBSTRUCTIVE PULMONARY DISEASE W (ACUTE) EXACERBATION (2) Chest pain Code(s): R07.9 - CHEST PAIN, UNSPECIFIED (3) Acute exacerbation of CHF (congestive heart failure) Code(s): I50.9 - HEART FAILURE, UNSPECIFIED (4) Acute on chronic respiratory failure with hypoxia and hypercapnia Code(s): J96.21 - ACUTE AND CHRONIC RESPIRATORY FAILURE WITH HYPOXIA; J96.22 - ACUTE AND CHRONIC RESPIRATORY FAILURE WITH HYPERCAPNIA (5) Acute renal failure Code(s): N17.9 - ACUTE KIDNEY FAILURE, UNSPECIFIED (6) Back spasm Code(s): M62.830 - MUSCLE SPASM OF BACK (7) Diabetes Code(s): E11.9 - TYPE 2 DIABETES MELLITUS WITHOUT COMPLICATIONS (8) Diastolic CHF Code(s): I50.30 - UNSPECIFIED DIASTOLIC (CONGESTIVE) HEART FAILURE (9) Elevated CK Code(s): R74.8 - ABNORMAL LEVELS OF OTHER SERUM ENZYMES (10) Elevated troponin I level Code(s): R74.8 - ABNORMAL LEVELS OF OTHER SERUM ENZYMES (11) Hyperkalemia Code(s): E87.5 - HYPERKALEMIA (12) Hyperlipidemia Code(s): E78.5 - HYPERLIPIDEMIA, UNSPECIFIED (13) Hypertension Code(s): I10 - ESSENTIAL (PRIMARY) HYPERTENSION Qualifiers: Hypertension type: unspecified Qualified Code(s): I10 - Essential (primary ) hypertension (14) Kidney failure Code(s): N19 - UNSPECIFIED KIDNEY FAILURE (15) Kidney stone Code(s): N20.0 - CALCULUS OF KIDNEY (16) Morbid exogenous obesity Code(s): E66.01 - MORBID (SEVERE) OBESITY DUE TO EXCESS CALORIES (17) Morbid obesity Code(s): E66.01 - MORBID (SEVERE) OBESITY DUE TO EXCESS CALORIES (18) Obesity hypoventilation syndrome Code(s): E66.2 - MORBID (SEVERE) OBESITY WITH ALVEOLAR HYPOVENTILATION (19) Pulmonary HTN Code(s): I27.2 - OTHER SECONDARY PULMONARY HYPERTENSION * DO NOT USE * (20) Renal insufficiency Code(s): N28.9 - DISORDER OF KIDNEY AND URETER, UNSPECIFIED (21) Respiratory distress Code(s): R06.00 - DYSPNEA, UNSPECIFIED (22) Shortness of breath Code(s): R06.02 - SHORTNESS OF BREATH (23) Sleep apnea Code(s): G47.30 - SLEEP APNEA, UNSPECIFIED (24) Syncope Code(s): R55 - SYNCOPE AND COLLAPSE (25) Tachycardia Code(s): R00.0 - TACHYCARDIA, UNSPECIFIED (26) UTI (urinary tract infection) Code(s): N39.0 - URINARY TRACT INFECTION, SITE NOT SPECIFIED (27) Viral syndrome Code(s): B34.9 - VIRAL INFECTION, UNSPECIFIED Assessment/Plan - Problems (1) Acute on chronic kidney failure Assessment/Plan: On fruosemide and metolazone. f/u with window treatment installer. Code(s): N17.9 - ACUTE KIDNEY FAILURE, UNSPECIFIED; N18.9 - CHRONIC KIDNEY DISEASE, UNSPECIFIED (2) COPD exacerbation Code(s): J44.1 - CHRONIC OBSTRUCTIVE PULMONARY DISEASE W (ACUTE) EXACERBATION (3) Acute on chronic respiratory failure with hypoxia and hypercapnia Assessment/Plan: Steroids, bronchodilators, O2, antibiotics per [facility]. Code(s): J96.21 - ACUTE AND CHRONIC RESPIRATORY FAILURE WITH HYPOXIA; J96.22 - ACUTE AND CHRONIC RESPIRATORY FAILURE WITH HYPERCAPNIA (4) Diastolic CHF Assessment/Plan: On nifedipine XL, hydrlazine, furosemide, and metolazone; Imdur added. ECHO: normal LVEF: abnormal diastolic compliance; RV dilatation and reduced RVEF ; evidence of fluid overload (flattened ventricular septum). F/u BUN/Cr, electrolytes, daily weight, Is and Os. Code(s): I50.30 - UNSPECIFIED DIASTOLIC (CONGESTIVE) HEART FAILURE (5) Renal insufficiency Code(s): N28.9 - DISORDER OF KIDNEY AND URETER, UNSPECIFIED (6) Respiratory distress Code(s): R06.00 - DYSPNEA, UNSPECIFIED (7) Sleep apnea Code(s): G47.30 - SLEEP APNEA, UNSPECIFIED (8) Morbid obesity Assessment/Plan: Pt has had discussions in the past regarding gastric bypass surgery. See under "depression". Code(s): E66.01 - MORBID (SEVERE) OBESITY DUE TO EXCESS CALORIES (9) Aortic root dilatation Assessment/Plan: Mild dilatation by ECHO this visit. F/u prior studies for comparison. CTA problematic due to renal dysfunction. Code(s): I77.810 - THORACIC AORTIC ECTASIA (10) Knee pain Assessment/Plan: bilateral knee pain; hx bilateral arthroscopic surgery. Code(s): M25.569 - PAIN IN UNSPECIFIED KNEE (11) Depression Assessment/Plan: Pt's former work associate, who says she is Lupillo's "substitute mother"(his biological mother a few months ago), says he has had periods of severe depression for many years. A few years ago, he had to be admitted to [facility] psychiatric floor. He has talked of committing suicde in the past. When his sister a few years ago, and upon his mother's , he gained abou 100 lbs within amonth each time. She says he "loves starches"; while confined at home, he calls out constantly for fast food in large portions. She took him to gastric bypass surgeon at [facility]; Cindy was considered at high risk for surgery. F/u with psychologist/psychiatrist. f/u with rn documentation. Code(s): F32.9 - MAJOR DEPRESSIVE DISORDER, SINGLE EPISODE, UNSPECIFIED
--- NOTE | 2018-08-25 22:42 | PN ---
Progress Note, Physician - Current Medication List Current Medications: Active Medications Aspirin (Asa -) 81 mg PO DAILY [facility] Last Admin: 08/25/18 10:02 Dose: 81 mg Benzocaine/Butamben/Tetracaine HCl (Cetacaine [place] -) 1 spray TP DAILY [facility] Last Admin: 08/25/18 10:09 Dose: Not Given Budesonide/Formoterol Fumarate (Symbicort 160/4.5mcg -) 1 puff IH BID [facility] Last Admin: 08/25/18 10:09 Dose: 1 puff Docusate Sodium (Colace -) 100 mg PO Q8H [facility] Last Admin: 08/25/18 14:14 Dose: 100 mg Ferrous Sulfate (Feosol -) 325 mg PO TID [facility] Last Admin: 08/25/18 14:14 Dose: 325 mg Furosemide (Lasix Injection -) 60 mg IVPUSH BID@0600,1400 [facility] Last Admin: 08/25/18 14:27 Dose: 60 mg Gabapentin (Neurontin -) 300 mg PO TID [facility] Last Admin: 08/25/18 14:17 Dose: 300 mg Heparin Sodium (Porcine) (Heparin -) 1,000 unit IVPUSH PRN PRN PRN Reason: Heparin Last Admin: 08/25/18 10:08 Dose: 1,000 unit Heparin Sodium (Porcine) (Heparin -) 5,000 unit IVPUSH PRN PRN PRN Reason: Heparin Hydralazine HCl (Apresoline -) 100 mg PO TID [facility] Last Admin: 08/25/18 14:15 Dose: 100 mg Heparin Sodium (Porcine) 25, (000 unit/ Sodium Chloride) 500 mls @ 20 mls/hr IV TITR [facility]; Protocol Last Titration: 08/25/18 10:03 Dose: 1,200 unit/hr, 24 mls/hr Insulin Aspart (Novolog Mix 70/30 Vial) 40 units SQ BIDAC [facility] Last Admin: 08/25/18 17:53 Dose: 40 units Insulin Aspart (Novolog Vial Sliding Scale -) 1 vial SQ ACHS [facility]; Protocol Last Admin: 08/25/18 17:14 Dose: 9 units Insulin Detemir (Levemir Vial) 25 units SQ HS [facility] Last Admin: 08/25/18 00:26 Dose: 25 units Isosorbide Mononitrate (Imdur -) 60 mg PO DAILY [facility] Last Admin: 08/25/18 10:00 Dose: 60 mg Losartan Potassium (Cozaar -) 25 mg PO DAILY [facility] Last Admin: 08/25/18 10:01 Dose: 25 mg Methylprednisolone Sodium Succinate (Solu-Medrol -) 20 mg IVPUSH Q12H [facility] Last Admin: 08/25/18 14:36 Dose: Not Given Metolazone (Zaroxolyn -) 5 mg PO DAILY [facility] Last Admin: 08/25/18 10:02 Dose: 5 mg Nifedipine (Procardia Xl -) 90 mg PO DAILY [facility] Last Admin: 08/25/18 10:20 Dose: 90 mg Rosuvastatin Calcium (Crestor -) 5 mg PO HS [facility] Last Admin: 08/25/18 00:19 Dose: 5 mg Tamsulosin HCl (Flomax -) 0.4 mg PO DAILY@0830 [facility] Last Admin: 08/25/18 10:02 Dose: 0.4 mg - Objective Vital Signs: Vital Signs Temperature 98.4 F 08/25/18 17:52 Pulse Rate 91 H 08/25/18 17:52 Respiratory Rate 20 08/25/18 17:52 Blood Pressure 147/85 08/25/18 17:52 O2 Sat by Pulse Oximetry (%) 96 08/25/18 21:12 Labs: CBC, BMP 08/25/18 05:55 08/24/18 05:40 INR, PTT INR 1.10 (0.83-1.09) H 08/12/18 21:00 Problem List - Problems (1) Diastolic CHF Code(s): I50.30 - UNSPECIFIED DIASTOLIC (CONGESTIVE) HEART FAILURE (2) COPD exacerbation Code(s): J44.1 - CHRONIC OBSTRUCTIVE PULMONARY DISEASE W (ACUTE) EXACERBATION (3) Acute on chronic kidney failure Code(s): N17.9 - ACUTE KIDNEY FAILURE, UNSPECIFIED; N18.9 - CHRONIC KIDNEY DISEASE, UNSPECIFIED (4) Acute on chronic respiratory failure with hypoxia and hypercapnia Code(s): J96.21 - ACUTE AND CHRONIC RESPIRATORY FAILURE WITH HYPOXIA; J96.22 - ACUTE AND CHRONIC RESPIRATORY FAILURE WITH HYPERCAPNIA (5) Diabetes Code(s): E11.9 - TYPE 2 DIABETES MELLITUS WITHOUT COMPLICATIONS (6) Hyperlipidemia Code(s): E78.5 - HYPERLIPIDEMIA, UNSPECIFIED (7) Hypertension Code(s): I10 - ESSENTIAL (PRIMARY) HYPERTENSION Qualifiers: Hypertension type: unspecified Qualified Code(s): I10 - Essential (primary ) hypertension (8) Morbid obesity Code(s): E66.01 - MORBID (SEVERE) OBESITY DUE TO EXCESS CALORIES (9) Sleep apnea Code(s): G47.30 - SLEEP APNEA, UNSPECIFIED (10) Abscess Code(s): L02.91 - CUTANEOUS ABSCESS, UNSPECIFIED (11) Chest pain Code(s): R07.9 - CHEST PAIN, UNSPECIFIED
[2018-08-26] MEDS: FUROSEMIDE 40 MG/4 ML INJECTABLE VIAL IVPUSH SCH ×2 (05:40→13:46)
[2018-08-26] MEDS: GABAPENTIN 300 MG CAPSULE (FP) PO SCH ×3 (05:40→22:43)
[2018-08-26] MEDS: DOCUSATE SODIUM 100 MG CAPSULE (FP) PO SCH ×3 (05:40→22:44)
[2018-08-26] MEDS: FERROUS SO4 325 MG TABLET (FP) PO SCH ×3 (05:40→22:43)
[2018-08-26] MEDS: hydrALAZINE HCL 50 MG TABLET (FP) PO SCH ×3 (05:40→22:43)
[2018-08-26] MEDS: INSULIN (NOVOLOG MIX 70/30) 100 UNITS/ML MDV SQ SCH ×2 (06:24→17:30)
[2018-08-26] MEDS: INSULIN SLIDING SCALE (NOVOLOG) 1 VIAL SQ SCH ×4 (06:24→22:44)
[2018-08-26 07:11] LABS: HEMATOCRIT 36.8 % (35.4-49); HEMOGLOBIN 11.5 GM/dL (11.7-16.9); MCH 27.6 pg (25.7-33.7); MCHC 31.2 g/dl (32.0-35.9); MEAN CELL VOLUME 88.4 fl (80-96); MEAN PLT VOLUME 8.4 fl (7.5-11.1); PLATELET COUNT 231 K/MM3 (134-434); RBC 4.16 M/mm3 (4.00-5.60)
[2018-08-26 07:43] LABS: CALCIUM 8.6 mg/dL (8.5-10.1); CREATININE 2.7 mg/dL (0.55-1.3); POTASSIUM 4.5 mmol/L (3.5-5.1)
[2018-08-26] MEDS: TAMSULOSIN HCL 0.4 MG CAP PO SCH (08:32)
[2018-08-26] MEDS: METOLAZONE 5 MG TABLET PO SCH (09:36)
[2018-08-26] MEDS: ASPIRIN 81 MG CHEWABLE TABLETS PO SCH (09:36)
[2018-08-26] MEDS: ISOSORBIDE MONONITRATE 30 MG TAB.SR.24H (FP) PO SCH (09:36)
[2018-08-26] MEDS: NIFEdipine E.R. 90 MG TABLET (FP) PO SCH (09:36)
[2018-08-26] MEDS: LOSARTAN POTASSIUM 25 MG TABLET PO SCH (09:36)
[2018-08-26] MEDS: BUDESONIDE/FORMETEROL FUMARATE 160/4.5 mcg INHALER IH SCH ×2 (09:37→22:45)
[2018-08-26] MEDS: TETRACAINE/BENZOCAINE/BUTAMBEN 20 GM SPR TP SCH (09:37)
[2018-08-26] MEDS: methylPREDNISolone NA SUCC 40 MG/1 ML VIAL IVPUSH SCH (11:20)
[2018-08-26] MEDS ORDERED: INSULIN (NOVOLOG) ASPART 100 UNITS/ML 10ML VIAL ONE ×3 (11:20→16:21)
[2018-08-26] MEDS: HEPARIN - 25,000 UNIT in SODIUM CHLORIDE 495 ML IV SCH ×4 (11:50→11:55)
--- NOTE | 2018-08-26 13:24 | PN ---
Progress Note (short form) - Note Progress Note: PULMONARY States breathing is better. No chest pain, cough or wheezing. Vital Signs Period Temp Pulse Resp BP Sys/Watson Pulse Ox Last 24 Hr 97.1 F-98.4 F 83-98 20-22 139-153/76-89 94-96 Gen: NAD in chair Heart: RRR Lung: decreased breath sounds at the bases Abd: soft, nontender Ext: + edema CBC, BMP 08/26/18 05:30 08/26/18 05:30 Active Medications Aspirin (Asa -) 81 mg PO DAILY [facility] Last Admin: 08/26/18 09:36 Dose: 81 mg Benzocaine/Butamben/Tetracaine HCl (Cetacaine [place] -) 1 spray TP DAILY [facility] Last Admin: 08/26/18 09:37 Dose: Not Given Budesonide/Formoterol Fumarate (Symbicort 160/4.5mcg -) 1 puff IH BID [facility] Last Admin: 08/26/18 09:37 Dose: 1 puff Docusate Sodium (Colace -) 100 mg PO Q8H [facility] Last Admin: 08/26/18 11:20 Dose: 100 mg Ferrous Sulfate (Feosol -) 325 mg PO TID [facility] Last Admin: 08/26/18 05:40 Dose: 325 mg Furosemide (Lasix Injection -) 60 mg IVPUSH BID@0600,1400 [facility] Last Admin: 08/26/18 05:40 Dose: 60 mg Gabapentin (Neurontin -) 300 mg PO TID [facility] Last Admin: 08/26/18 05:40 Dose: 300 mg Heparin Sodium (Porcine) (Heparin -) 1,000 unit IVPUSH PRN PRN PRN Reason: Heparin Last Admin: 08/25/18 10:08 Dose: 1,000 unit Heparin Sodium (Porcine) (Heparin -) 5,000 unit IVPUSH PRN PRN PRN Reason: Heparin Hydralazine HCl (Apresoline -) 100 mg PO TID [facility] Last Admin: 08/26/18 05:40 Dose: 100 mg Heparin Sodium (Porcine) 25, (000 unit/ Sodium Chloride) 500 mls @ 20 mls/hr IV TITR [facility]; Protocol Last Admin: 08/26/18 11:55 Dose: 1,200 unit/hr, 24 mls/hr Insulin Aspart (Novolog Mix 70/30 Vial) 40 units SQ BIDAC [facility] Last Admin: 08/26/18 06:24 Dose: 40 units Insulin Aspart (Novolog Vial Sliding Scale -) 1 vial SQ [facility]; Protocol Last Admin: 08/26/18 11:59 Dose: Not Given Insulin Detemir (Levemir Vial) 25 units SQ [facility] Last Admin: 08/25/18 23:00 Dose: 25 units Isosorbide Mononitrate (Imdur -) 60 mg PO DAILY [facility] Last Admin: 08/26/18 09:36 Dose: 60 mg Losartan Potassium (Cozaar -) 25 mg PO DAILY [facility] Last Admin: 08/26/18 09:36 Dose: 25 mg Methylprednisolone Sodium Succinate (Solu-Medrol -) 20 mg IVPUSH Q12H [facility] Last Admin: 08/26/18 11:20 Dose: 20 mg Metolazone (Zaroxolyn -) 5 mg PO DAILY [facility] Last Admin: 08/26/18 09:36 Dose: 5 mg Nifedipine (Procardia Xl -) 90 mg PO DAILY [facility] Last Admin: 08/26/18 09:36 Dose: 90 mg Rosuvastatin Calcium (Crestor -) 5 mg PO [facility] Last Admin: 08/25/18 22:43 Dose: 5 mg Tamsulosin HCl (Flomax -) 0.4 mg PO DAILY@0830 [facility] Last Admin: 08/26/18 08:32 Dose: 0.4 mg A/P Acute on Chronic Hypoxic and Hypercapneic Respiratory Failure improving Acute COPD Exacerbation Acute on Chronic Diastolic Heart Failure Pulmonary HTN Morbid Obesity TATI/OHS HTN DM CKD - will change steroids to PO prednisone - inhaled bronchodilators - O2 to keep Spo2 >90% - BiPAP at night and PRN during day - cardiology f/u, can likely d/c heparin gtt - continue lasix - monitor urine output, creatinine - DVT prophylaxis - d/c planning
[2018-08-26] MEDS ORDERED: SENNOSIDES 8.6MG TABLET (FP) PO PRN (14:22)
--- NOTE | 2018-08-26 14:22 | PN ---
Progress Note, Physician History of Present Illness: Pt seen and examined at bedside. He is awake and alert. He feels that his lower ext edema is improving. - Current Medication List Current Medications: Active Medications Aspirin (Asa -) 81 mg PO DAILY [facility] Last Admin: 08/26/18 09:36 Dose: 81 mg Benzocaine/Butamben/Tetracaine HCl (Cetacaine [place] -) 1 spray TP DAILY [facility] Last Admin: 08/26/18 09:37 Dose: Not Given Budesonide/Formoterol Fumarate (Symbicort 160/4.5mcg -) 1 puff IH BID [facility] Last Admin: 08/26/18 09:37 Dose: 1 puff Docusate Sodium (Colace -) 100 mg PO Q8H [facility] Last Admin: 08/26/18 11:20 Dose: 100 mg Ferrous Sulfate (Feosol -) 325 mg PO TID [facility] Last Admin: 08/26/18 13:47 Dose: 325 mg Furosemide (Lasix Injection -) 60 mg IVPUSH BID@0600,1400 [facility] Last Admin: 08/26/18 13:46 Dose: 60 mg Gabapentin (Neurontin -) 300 mg PO TID [facility] Last Admin: 08/26/18 13:46 Dose: 300 mg Heparin Sodium (Porcine) (Heparin -) 1,000 unit IVPUSH PRN PRN PRN Reason: Heparin Last Admin: 08/25/18 10:08 Dose: 1,000 unit Heparin Sodium (Porcine) (Heparin -) 5,000 unit IVPUSH PRN PRN PRN Reason: Heparin Hydralazine HCl (Apresoline -) 100 mg PO TID [facility] Last Admin: 08/26/18 13:47 Dose: 100 mg Heparin Sodium (Porcine) 25, (000 unit/ Sodium Chloride) 500 mls @ 20 mls/hr IV TITR [facility]; Protocol Last Admin: 08/26/18 11:55 Dose: 1,200 unit/hr, 24 mls/hr Insulin Aspart (Novolog Mix 70/30 Vial) 40 units SQ BIDAC [facility] Last Admin: 08/26/18 06:24 Dose: 40 units Insulin Aspart (Novolog Vial Sliding Scale -) 1 vial SQ ACHS [facility]; Protocol Last Admin: 08/26/18 11:59 Dose: Not Given Insulin Detemir (Levemir Vial) 25 units SQ HS [facility] Last Admin: 08/25/18 23:00 Dose: 25 units Isosorbide Mononitrate (Imdur -) 60 mg PO DAILY [facility] Last Admin: 08/26/18 09:36 Dose: 60 mg Losartan Potassium (Cozaar -) 25 mg PO DAILY [facility] Last Admin: 08/26/18 09:36 Dose: 25 mg Metolazone (Zaroxolyn -) 5 mg PO DAILY [facility] Last Admin: 08/26/18 09:36 Dose: 5 mg Nifedipine (Procardia Xl -) 90 mg PO DAILY [facility] Last Admin: 08/26/18 09:36 Dose: 90 mg Prednisone (Deltasone -) 20 mg PO DAILY [facility] Rosuvastatin Calcium (Crestor -) 5 mg PO HS [facility] Last Admin: 08/25/18 22:43 Dose: 5 mg Tamsulosin HCl (Flomax -) 0.4 mg PO DAILY@0830 [facility] Last Admin: 08/26/18 08:32 Dose: 0.4 mg - Objective Vital Signs: Vital Signs Temperature 97.1 F L 08/26/18 08:36 Pulse Rate 83 08/26/18 08:36 Respiratory Rate 22 H 08/26/18 08:39 Blood Pressure 139/89 08/26/18 08:36 O2 Sat by Pulse Oximetry (%) 96 08/26/18 08:39 Constitutional: Yes: Calm Eyes: Yes: Conjunctiva Clear HENT: Yes: Atraumatic Cardiovascular: Yes: S1, S2 Respiratory: Yes: CTA Bilaterally, On Nasal O2 Gastrointestinal: Yes: Soft, Abdomen, Obese, Other (abd wall edema) Genitourinary: Yes: WNL Musculoskeletal: Yes: WNL Edema: Yes Edema: LLE: 2+, RLE: 2+ Neurological: Yes: Oriented Psychiatric: Yes: Oriented Labs: CBC, BMP 08/26/18 05:30 08/26/18 05:30 INR, PTT INR 1.10 (0.83-1.09) H 08/12/18 21:00 Problem List - Problems (1) CKD (chronic kidney disease) Code(s): N18.9 - CHRONIC KIDNEY DISEASE, UNSPECIFIED (2) COPD exacerbation Code(s): J44.1 - CHRONIC OBSTRUCTIVE PULMONARY DISEASE W (ACUTE) EXACERBATION (3) Acute exacerbation of CHF (congestive heart failure) Code(s): I50.9 - HEART FAILURE, UNSPECIFIED Assessment/Plan Current Medications Generic Name Dose Route Start Last Admin Trade Name Freq PRN Reason Stop Dose Admin Aspirin 81 mg 08/13/18 10:00 08/26/18 09:36 Asa - PO 81 mg DAILY [facility] Administration Benzocaine/Butamben/Tetracaine HCl 1 spray 08/21/18 13:00 08/26/18 09:37 Cetacaine [place] - TP Not Given DAILY [facility] Budesonide/Formoterol Fumarate 1 puff 08/13/18 10:00 08/26/18 09:37 Symbicort 160/4.5mcg - IH 1 puff BID [facility] Administration Docusate Sodium 100 mg 08/25/18 12:00 08/26/18 11:20 Colace - PO 100 mg Q8H [facility] Administration Ferrous Sulfate 325 mg 08/13/18 06:00 08/26/18 13:47 Feosol - PO 325 mg TID [facility] Administration Furosemide 60 mg 08/17/18 14:00 08/26/18 13:46 Lasix Injection - IVPUSH 60 mg BID@0600,1400 [facility] Administration Gabapentin 300 mg 08/13/18 06:00 08/26/18 13:46 Neurontin - PO 300 mg TID [facility] Administration Heparin Sodium (Porcine) 1,000 unit 08/23/18 12:20 08/25/18 10:08 Heparin - IVPUSH 1,000 unit PRN PRN Administration Heparin Heparin Sodium (Porcine) 5,000 unit 08/23/18 12:20 Heparin - IVPUSH PRN PRN Heparin Hydralazine HCl 100 mg 08/19/18 22:00 08/26/18 13:47 Apresoline - PO 100 mg TID [facility] Administration Heparin Sodium (Porcine) 25, 500 mls @ 20 mls/hr 08/23/18 12:30 08/26/18 11: 55 000 unit/ Sodium Chloride IV 1,200 unit/hr TITR [facility] 24 mls/hr Administration Protocol 1,000 UNIT/HR Insulin Aspart 40 units 08/18/18 22:49 08/26/18 06:24 Novolog Mix 70/30 Vial SQ 40 units BIDAC [facility] Administration Insulin Aspart 1 vial 08/21/18 18:39 08/26/18 11:59 Novolog Vial Sliding Scale - SQ Not Given ACHS [facility] Protocol Insulin Detemir 25 units 08/18/18 22:50 08/25/18 23:00 Levemir Vial SQ 25 units HS [facility] Administration Isosorbide Mononitrate 60 mg 08/21/18 10:00 08/26/18 09:36 Imdur - PO 60 mg DAILY [facility] Administration Losartan Potassium 25 mg 08/24/18 10:00 08/26/18 09:36 Cozaar - PO 25 mg DAILY [facility] Administration Metolazone 5 mg 08/21/18 13:30 08/26/18 09:36 Zaroxolyn - PO 5 mg DAILY [facility] Administration Nifedipine 90 mg 08/13/18 10:00 08/26/18 09:36 Procardia Xl - PO 90 mg DAILY [facility] Administration Prednisone 20 mg 08/27/18 10:00 Deltasone - PO DAILY [facility] Rosuvastatin Calcium 5 mg 08/13/18 22:00 08/25/18 22:43 Crestor - PO 5 mg HS [facility] Administration Tamsulosin HCl 0.4 mg 08/13/18 08:30 08/26/18 08:32 Flomax - PO 0.4 mg DAILY@0830 [facility] Administration Impression 1. CKD 2. dyspnea 3. morbid obesity 4. DM 5. HTN 6. likely sleep apnea 7. chest pain 8. hyperkalemia Plan - cont diueretics - monitor volume status - increase losartan to 50 mg - low potassium diet - cont senna and colace - avoid constipation - recommend weight loss
[2018-08-26] MEDS ORDERED: INSULIN (NOVOLOG MIX 70/30) 100 UNITS/ML MDV SQ ONE (17:50)
[2018-08-26] MEDS: ROSUVASTATIN CA 5 MG TABLET (FP) PO SCH (22:43)
[2018-08-26] MEDS: INSULIN (LEVEMIR) 100 UNITS/ML UNITS SQ SCH (22:44)
--- NOTE | 2018-08-26 23:48 | PN ---
Progress Note, Physician History of Present Illness: No new complaints - Current Medication List Current Medications: Active Medications Aspirin (Asa -) 81 mg PO DAILY [facility] Last Admin: 08/26/18 09:36 Dose: 81 mg Benzocaine/Butamben/Tetracaine HCl (Cetacaine [place] -) 1 spray TP DAILY [facility] Last Admin: 08/26/18 09:37 Dose: Not Given Budesonide/Formoterol Fumarate (Symbicort 160/4.5mcg -) 1 puff IH BID [facility] Last Admin: 08/26/18 09:37 Dose: 1 puff Docusate Sodium (Colace -) 100 mg PO Q8H [facility] Last Admin: 08/26/18 22:44 Dose: 100 mg Ferrous Sulfate (Feosol -) 325 mg PO TID [facility] Last Admin: 08/26/18 22:43 Dose: 325 mg Furosemide (Lasix Injection -) 60 mg IVPUSH BID@0600,1400 [facility] Last Admin: 08/26/18 13:46 Dose: 60 mg Gabapentin (Neurontin -) 300 mg PO TID [facility] Last Admin: 08/26/18 22:43 Dose: 300 mg Heparin Sodium (Porcine) (Heparin -) 1,000 unit IVPUSH PRN PRN PRN Reason: Heparin Last Admin: 08/25/18 10:08 Dose: 1,000 unit Heparin Sodium (Porcine) (Heparin -) 5,000 unit IVPUSH PRN PRN PRN Reason: Heparin Hydralazine HCl (Apresoline -) 100 mg PO TID [facility] Last Admin: 08/26/18 22:43 Dose: 100 mg Heparin Sodium (Porcine) 25, (000 unit/ Sodium Chloride) 500 mls @ 20 mls/hr IV TITR [facility]; Protocol Last Admin: 08/26/18 11:55 Dose: 1,200 unit/hr, 24 mls/hr Insulin Aspart (Novolog Mix 70/30 Vial) 40 units SQ BIDAC [facility] Last Admin: 08/26/18 17:30 Dose: 40 units Insulin Aspart (Novolog Vial Sliding Scale -) 1 vial SQ ACHS [facility]; Protocol Last Admin: 08/26/18 22:44 Dose: 8 units Insulin Detemir (Levemir Vial) 25 units SQ HS [facility] Last Admin: 08/26/18 22:44 Dose: 25 units Isosorbide Mononitrate (Imdur -) 60 mg PO DAILY [facility] Last Admin: 08/26/18 09:36 Dose: 60 mg Losartan Potassium (Cozaar -) 50 mg PO DAILY [facility] Metolazone (Zaroxolyn -) 5 mg PO DAILY [facility] Last Admin: 08/26/18 09:36 Dose: 5 mg Nifedipine (Procardia Xl -) 90 mg PO DAILY [facility] Last Admin: 08/26/18 09:36 Dose: 90 mg Prednisone (Deltasone -) 20 mg PO DAILY [facility] Rosuvastatin Calcium (Crestor -) 5 mg PO HS [facility] Last Admin: 08/26/18 22:43 Dose: 5 mg Senna (Senna -) 2 tab PO HS PRN PRN Reason: CONSTIPATION Tamsulosin HCl (Flomax -) 0.4 mg PO DAILY@0830 [facility] Last Admin: 08/26/18 08:32 Dose: 0.4 mg - Objective Vital Signs: Vital Signs Temperature 97.9 F 08/26/18 18:11 Pulse Rate 86 08/26/18 17:38 Respiratory Rate 22 H 08/26/18 18:11 Blood Pressure 144/73 08/26/18 18:11 O2 Sat by Pulse Oximetry (%) 96 08/26/18 23:04 Cardiovascular: Yes: WNL, Regular Rate and Rhythm Respiratory: Yes: Diminished Gastrointestinal: Yes: WNL, Normal Bowel Sounds, Soft, Abdomen, Obese Labs: CBC, BMP 08/26/18 05:30 08/26/18 05:30 INR, PTT INR 1.10 (0.83-1.09) H 08/12/18 21:00 Problem List - Problems (1) Diastolic CHF Assessment/Plan: Acute on chronic diastolic heart failure Cont IV lasix Cont diuresis Code(s): I50.30 - UNSPECIFIED DIASTOLIC (CONGESTIVE) HEART FAILURE (2) COPD exacerbation Assessment/Plan: Cont IV sterpoids Cont nebulizers Code(s): J44.1 - CHRONIC OBSTRUCTIVE PULMONARY DISEASE W (ACUTE) EXACERBATION (3) Acute on chronic kidney failure Assessment/Plan: Cont to monitor labs Code(s): N17.9 - ACUTE KIDNEY FAILURE, UNSPECIFIED; N18.9 - CHRONIC KIDNEY DISEASE, UNSPECIFIED (4) Acute on chronic respiratory failure with hypoxia and hypercapnia Code(s): J96.21 - ACUTE AND CHRONIC RESPIRATORY FAILURE WITH HYPOXIA; J96.22 - ACUTE AND CHRONIC RESPIRATORY FAILURE WITH HYPERCAPNIA (5) Diabetes Assessment/Plan: Cont sliding scale w/ coverage Code(s): E11.9 - TYPE 2 DIABETES MELLITUS WITHOUT COMPLICATIONS (6) Hyperlipidemia Code(s): E78.5 - HYPERLIPIDEMIA, UNSPECIFIED (7) Hypertension Code(s): I10 - ESSENTIAL (PRIMARY) HYPERTENSION Qualifiers: Hypertension type: unspecified Qualified Code(s): I10 - Essential (primary ) hypertension (8) Morbid obesity Code(s): E66.01 - MORBID (SEVERE) OBESITY DUE TO EXCESS CALORIES (9) Sleep apnea Code(s): G47.30 - SLEEP APNEA, UNSPECIFIED (10) Abscess Code(s): L02.91 - CUTANEOUS ABSCESS, UNSPECIFIED (11) Chest pain Code(s): R07.9 - CHEST PAIN, UNSPECIFIED
[2018-08-27] MEDS: FERROUS SO4 325 MG TABLET (FP) PO SCH ×3 (05:54→22:59)
[2018-08-27] MEDS: hydrALAZINE HCL 50 MG TABLET (FP) PO SCH ×3 (05:56→22:58)
[2018-08-27] MEDS: GABAPENTIN 300 MG CAPSULE (FP) PO SCH ×3 (05:56→22:59)
[2018-08-27] MEDS: DOCUSATE SODIUM 100 MG CAPSULE (FP) PO SCH ×3 (05:57→23:01)
[2018-08-27] MEDS: FUROSEMIDE 40 MG/4 ML INJECTABLE VIAL IVPUSH SCH ×2 (05:58→13:57)
[2018-08-27] MEDS: INSULIN SLIDING SCALE (NOVOLOG) 1 VIAL SQ SCH ×4 (06:00→22:59)
[2018-08-27] MEDS: INSULIN (NOVOLOG MIX 70/30) 100 UNITS/ML MDV SQ SCH ×2 (06:04→17:07)
[2018-08-27] MEDS ORDERED: PT OWN MED DRAWER 7, Y5N ONE (07:33)
[2018-08-27 07:39] LABS: HEMATOCRIT 36.4 % (35.4-49); HEMOGLOBIN 11.2 GM/dL (11.7-16.9); MCH 27.4 pg (25.7-33.7); MCHC 30.9 g/dl (32.0-35.9); MEAN CELL VOLUME 88.7 fl (80-96); MEAN PLT VOLUME 8.5 fl (7.5-11.1); PLATELET COUNT 226 K/MM3 (134-434); WHITE BLOOD COUNT 13.2 K/mm3 (4.0-10.0)
[2018-08-27] MEDS: TAMSULOSIN HCL 0.4 MG CAP PO SCH (08:29)
[2018-08-27] MEDS: HEPARIN NA (PORCINE) 5,000 UNITS/ML 1ML VIAL IVPUSH PRN (08:43)
[2018-08-27] MEDS: METOLAZONE 5 MG TABLET PO SCH (09:41)
[2018-08-27] MEDS: ISOSORBIDE MONONITRATE 30 MG TAB.SR.24H (FP) PO SCH (09:41)
[2018-08-27] MEDS: NIFEdipine E.R. 90 MG TABLET (FP) PO SCH (09:41)
[2018-08-27] MEDS: ASPIRIN 81 MG CHEWABLE TABLETS PO SCH (09:41)
[2018-08-27] MEDS: BUDESONIDE/FORMETEROL FUMARATE 160/4.5 mcg INHALER IH SCH ×2 (09:42→23:00)
[2018-08-27] MEDS: HEPARIN - 25,000 UNIT in SODIUM CHLORIDE 495 ML IV SCH ×2 (09:42→12:42)
[2018-08-27] MEDS: TETRACAINE/BENZOCAINE/BUTAMBEN 20 GM SPR TP SCH (09:44)
[2018-08-27] MEDS: LOSARTAN POTASSIUM 50 MG TABLET (FP) PO SCH (11:29)
[2018-08-27] MEDS: predniSONE 20 MG TABLET (UD) PO SCH (11:30)
--- NOTE | 2018-08-27 13:43 | PN ---
Progress Note, Physician History of Present Illness: Pt seen and examined at bedside. He is awake and alert. He feels that his edema is improving. - Current Medication List Current Medications: Active Medications Aspirin (Asa -) 81 mg PO DAILY [facility] Last Admin: 08/27/18 09:41 Dose: 81 mg Benzocaine/Butamben/Tetracaine HCl (Cetacaine [place] -) 1 spray TP DAILY [facility] Last Admin: 08/27/18 09:44 Dose: 1 spray Budesonide/Formoterol Fumarate (Symbicort 160/4.5mcg -) 1 puff IH BID [facility] Last Admin: 08/27/18 09:42 Dose: 1 puff Docusate Sodium (Colace -) 100 mg PO TID [facility] Ferrous Sulfate (Feosol -) 325 mg PO TID [facility] Last Admin: 08/27/18 05:54 Dose: 325 mg Furosemide (Lasix Injection -) 60 mg IVPUSH BID@0600,1400 [facility] Last Admin: 08/27/18 05:58 Dose: 60 mg Gabapentin (Neurontin -) 300 mg PO TID [facility] Last Admin: 08/27/18 05:56 Dose: 300 mg Heparin Sodium (Porcine) (Heparin -) 1,000 unit IVPUSH PRN PRN PRN Reason: Heparin Last Admin: 08/27/18 08:43 Dose: 1,000 unit Heparin Sodium (Porcine) (Heparin -) 5,000 unit IVPUSH PRN PRN PRN Reason: Heparin Hydralazine HCl (Apresoline -) 100 mg PO TID [facility] Last Admin: 08/27/18 05:56 Dose: 100 mg Heparin Sodium (Porcine) 25, (000 unit/ Sodium Chloride) 500 mls @ 20 mls/hr IV TITR [facility]; Protocol Last Admin: 08/27/18 12:42 Dose: 1,300 unit/hr, 26 mls/hr Insulin Aspart (Novolog Mix 70/30 Vial) 40 units SQ BIDAC [facility] Last Admin: 08/27/18 06:04 Dose: 40 units Insulin Aspart (Novolog Vial Sliding Scale -) 1 vial SQ ACHS [facility]; Protocol Last Admin: 08/27/18 11:26 Dose: Not Given Insulin Detemir (Levemir Vial) 25 units SQ HS [facility] Last Admin: 08/26/18 22:44 Dose: 25 units Isosorbide Mononitrate (Imdur -) 60 mg PO DAILY [facility] Last Admin: 08/27/18 09:41 Dose: 60 mg Losartan Potassium (Cozaar -) 50 mg PO DAILY [facility] Last Admin: 08/27/18 11:29 Dose: 50 mg Metolazone (Zaroxolyn -) 5 mg PO DAILY [facility] Last Admin: 08/27/18 09:41 Dose: 5 mg Nifedipine (Procardia Xl -) 90 mg PO DAILY [facility] Last Admin: 08/27/18 09:41 Dose: 90 mg Prednisone (Deltasone -) 20 mg PO DAILY [facility] Last Admin: 08/27/18 11:30 Dose: 20 mg Rosuvastatin Calcium (Crestor -) 5 mg PO HS [facility] Last Admin: 08/26/18 22:43 Dose: 5 mg Senna (Senna -) 2 tab PO HS PRN PRN Reason: CONSTIPATION Tamsulosin HCl (Flomax -) 0.4 mg PO DAILY@0830 [facility] Last Admin: 08/27/18 08:29 Dose: 0.4 mg - Objective Vital Signs: Vital Signs Temperature 98.0 F 08/27/18 08:19 Pulse Rate 88 08/27/18 08:19 Respiratory Rate 20 08/27/18 08:19 Blood Pressure 149/78 08/27/18 08:19 O2 Sat by Pulse Oximetry (%) 95 08/27/18 08:19 Constitutional: Yes: Calm Eyes: Yes: Conjunctiva Clear HENT: Yes: Atraumatic Neck: Yes: Supple Cardiovascular: Yes: S1, S2 Respiratory: Yes: On Nasal O2 Gastrointestinal: Yes: Soft, Abdomen, Obese Genitourinary: Yes: WNL Edema: Yes Edema: LLE: 1+, RLE: 1+ Neurological: Yes: Oriented Psychiatric: Yes: Oriented Labs: CBC, BMP 08/27/18 05:40 08/26/18 05:30 INR, PTT INR 1.10 (0.83-1.09) H 08/12/18 21:00 Problem List - Problems (1) CKD (chronic kidney disease) Code(s): N18.9 - CHRONIC KIDNEY DISEASE, UNSPECIFIED (2) COPD exacerbation Code(s): J44.1 - CHRONIC OBSTRUCTIVE PULMONARY DISEASE W (ACUTE) EXACERBATION (3) Acute exacerbation of CHF (congestive heart failure) Code(s): I50.9 - HEART FAILURE, UNSPECIFIED Assessment/Plan Current Medications Generic Name Dose Route Start Last Admin Trade Name Freq PRN Reason Stop Dose Admin Aspirin 81 mg 08/13/18 10:00 08/27/18 09:41 Asa - PO 81 mg DAILY [facility] Administration Benzocaine/Butamben/Tetracaine HCl 1 spray 08/21/18 13:00 08/27/18 09:44 Cetacaine [place] - TP 1 spray DAILY [facility] Administration Budesonide/Formoterol Fumarate 1 puff 08/13/18 10:00 08/27/18 09:42 Symbicort 160/4.5mcg - IH 1 puff BID [facility] Administration Docusate Sodium 100 mg 08/27/18 14:00 Colace - PO TID [facility] Ferrous Sulfate 325 mg 08/13/18 06:00 08/27/18 05:54 Feosol - PO 325 mg TID [facility] Administration Furosemide 60 mg 08/17/18 14:00 08/27/18 05:58 Lasix Injection - IVPUSH 60 mg BID@0600,1400 [facility] Administration Gabapentin 300 mg 08/13/18 06:00 08/27/18 05:56 Neurontin - PO 300 mg TID [facility] Administration Heparin Sodium (Porcine) 1,000 unit 08/23/18 12:20 08/27/18 08:43 Heparin - IVPUSH 1,000 unit PRN PRN Administration Heparin Heparin Sodium (Porcine) 5,000 unit 08/23/18 12:20 Heparin - IVPUSH PRN PRN Heparin Hydralazine HCl 100 mg 08/19/18 22:00 08/27/18 05:56 Apresoline - PO 100 mg TID [facility] Administration Heparin Sodium (Porcine) 25, 500 mls @ 20 mls/hr 08/23/18 12:30 08/27/18 12: 42 000 unit/ Sodium Chloride IV 1,300 unit/hr TITR [facility] 26 mls/hr Administration Protocol 1,000 UNIT/HR Insulin Aspart 40 units 08/18/18 22:49 08/27/18 06:04 Novolog Mix 70/30 Vial SQ 40 units BIDAC [facility] Administration Insulin Aspart 1 vial 08/21/18 18:39 08/27/18 11:26 Novolog Vial Sliding Scale - SQ Not Given ACHS [facility] Protocol Insulin Detemir 25 units 08/18/18 22:50 08/26/18 22:44 Levemir Vial SQ 25 units HS [facility] Administration Isosorbide Mononitrate 60 mg 08/21/18 10:00 08/27/18 09:41 Imdur - PO 60 mg DAILY [facility] Administration Losartan Potassium 50 mg 08/27/18 10:00 08/27/18 11:29 Cozaar - PO 50 mg DAILY [facility] Administration Metolazone 5 mg 08/21/18 13:30 08/27/18 09:41 Zaroxolyn - PO 5 mg DAILY [facility] Administration Nifedipine 90 mg 08/13/18 10:00 08/27/18 09:41 Procardia Xl - PO 90 mg DAILY [facility] Administration Prednisone 20 mg 08/27/18 10:00 08/27/18 11:30 Deltasone - PO 20 mg DAILY [facility] Administration Rosuvastatin Calcium 5 mg 08/13/18 22:00 08/26/18 22:43 Crestor - PO 5 mg HS [facility] Administration Senna 2 tab 08/26/18 14:22 Senna - PO HS PRN CONSTIPATION Tamsulosin HCl 0.4 mg 08/13/18 08:30 08/27/18 08:29 Flomax - PO 0.4 mg DAILY@0830 [facility] Administration Impression 1. CKD 2. dyspnea 3. morbid obesity 4. DM 5. HTN 6. likely sleep apnea 7. chest pain 8. hyperkalemia Plan - cont lasix - check bmp - volume status is improving - cont losartan - low potassium diet - cont senna and colace - avoid constipation - recommend weight loss
--- NOTE | 2018-08-27 13:51 | PN ---
Progress Note, Physician History of Present Illness: pulmonary alert,feeling better,-sob,-cp - Current Medication List Current Medications: Active Medications Aspirin (Asa -) 81 mg PO DAILY [facility] Last Admin: 08/27/18 09:41 Dose: 81 mg Benzocaine/Butamben/Tetracaine HCl (Cetacaine [place] -) 1 spray TP DAILY [facility] Last Admin: 08/27/18 09:44 Dose: 1 spray Budesonide/Formoterol Fumarate (Symbicort 160/4.5mcg -) 1 puff IH BID [facility] Last Admin: 08/27/18 09:42 Dose: 1 puff Docusate Sodium (Colace -) 100 mg PO TID [facility] Ferrous Sulfate (Feosol -) 325 mg PO TID [facility] Last Admin: 08/27/18 05:54 Dose: 325 mg Furosemide (Lasix Injection -) 60 mg IVPUSH BID@0600,1400 [facility] Last Admin: 08/27/18 05:58 Dose: 60 mg Gabapentin (Neurontin -) 300 mg PO TID [facility] Last Admin: 08/27/18 05:56 Dose: 300 mg Heparin Sodium (Porcine) (Heparin -) 1,000 unit IVPUSH PRN PRN PRN Reason: Heparin Last Admin: 08/27/18 08:43 Dose: 1,000 unit Heparin Sodium (Porcine) (Heparin -) 5,000 unit IVPUSH PRN PRN PRN Reason: Heparin Hydralazine HCl (Apresoline -) 100 mg PO TID [facility] Last Admin: 08/27/18 05:56 Dose: 100 mg Heparin Sodium (Porcine) 25, (000 unit/ Sodium Chloride) 500 mls @ 20 mls/hr IV TITR [facility]; Protocol Last Admin: 08/27/18 12:42 Dose: 1,300 unit/hr, 26 mls/hr Insulin Aspart (Novolog Mix 70/30 Vial) 40 units SQ BIDAC [facility] Last Admin: 08/27/18 06:04 Dose: 40 units Insulin Aspart (Novolog Vial Sliding Scale -) 1 vial SQ ACHS [facility]; Protocol Last Admin: 08/27/18 11:26 Dose: Not Given Insulin Detemir (Levemir Vial) 25 units SQ HS [facility] Last Admin: 08/26/18 22:44 Dose: 25 units Isosorbide Mononitrate (Imdur -) 60 mg PO DAILY [facility] Last Admin: 08/27/18 09:41 Dose: 60 mg Losartan Potassium (Cozaar -) 50 mg PO DAILY [facility] Last Admin: 08/27/18 11:29 Dose: 50 mg Metolazone (Zaroxolyn -) 5 mg PO DAILY [facility] Last Admin: 08/27/18 09:41 Dose: 5 mg Nifedipine (Procardia Xl -) 90 mg PO DAILY [facility] Last Admin: 08/27/18 09:41 Dose: 90 mg Prednisone (Deltasone -) 20 mg PO DAILY [facility] Last Admin: 08/27/18 11:30 Dose: 20 mg Rosuvastatin Calcium (Crestor -) 5 mg PO HS [facility] Last Admin: 08/26/18 22:43 Dose: 5 mg Senna (Senna -) 2 tab PO PRN PRN Reason: CONSTIPATION Tamsulosin HCl (Flomax -) 0.4 mg PO DAILY@0830 [facility] Last Admin: 08/27/18 08:29 Dose: 0.4 mg - Objective Vital Signs: Vital Signs Temperature 98.0 F 08/27/18 08:19 Pulse Rate 88 08/27/18 08:19 Respiratory Rate 20 08/27/18 08:19 Blood Pressure 149/78 08/27/18 08:19 O2 Sat by Pulse Oximetry (%) 95 08/27/18 08:19 Constitutional: Yes: Calm, Obese Eyes: Yes: WNL HENT: Yes: WNL Neck: Yes: WNL Cardiovascular: Yes: Regular Rate and Rhythm, S1, S2 Respiratory: Yes: Diminished Gastrointestinal: Yes: Normal Bowel Sounds, Soft Extremities: Yes: WNL Edema: Yes Labs: CBC, BMP 08/27/18 05:40 08/26/18 05:30 INR, PTT INR 1.10 (0.83-1.09) H 08/12/18 21:00 Problem List - Problems (1) CKD (chronic kidney disease) Code(s): N18.9 - CHRONIC KIDNEY DISEASE, UNSPECIFIED (2) COPD exacerbation Code(s): J44.1 - CHRONIC OBSTRUCTIVE PULMONARY DISEASE W (ACUTE) EXACERBATION (3) Acute exacerbation of CHF (congestive heart failure) Code(s): I50.9 - HEART FAILURE, UNSPECIFIED (4) Acute on chronic respiratory failure with hypoxia and hypercapnia Code(s): J96.21 - ACUTE AND CHRONIC RESPIRATORY FAILURE WITH HYPOXIA; J96.22 - ACUTE AND CHRONIC RESPIRATORY FAILURE WITH HYPERCAPNIA (5) Acute renal failure Code(s): N17.9 - ACUTE KIDNEY FAILURE, UNSPECIFIED (6) Diabetes Code(s): E11.9 - TYPE 2 DIABETES MELLITUS WITHOUT COMPLICATIONS (7) Hypertension Code(s): I10 - ESSENTIAL (PRIMARY) HYPERTENSION Qualifiers: Hypertension type: unspecified Qualified Code(s): I10 - Essential (primary ) hypertension (8) Morbid exogenous obesity Code(s): E66.01 - MORBID (SEVERE) OBESITY DUE TO EXCESS CALORIES (9) Morbid obesity Code(s): E66.01 - MORBID (SEVERE) OBESITY DUE TO EXCESS CALORIES (10) Obesity hypoventilation syndrome Code(s): E66.2 - MORBID (SEVERE) OBESITY WITH ALVEOLAR HYPOVENTILATION (11) Pulmonary HTN Code(s): I27.2 - OTHER SECONDARY PULMONARY HYPERTENSION * DO NOT USE * (12) Respiratory distress Code(s): R06.00 - DYSPNEA, UNSPECIFIED (13) Shortness of breath Code(s): R06.02 - SHORTNESS OF BREATH (14) Sleep apnea Code(s): G47.30 - SLEEP APNEA, UNSPECIFIED (15) Acute on chronic kidney failure Code(s): N17.9 - ACUTE KIDNEY FAILURE, UNSPECIFIED; N18.9 - CHRONIC KIDNEY DISEASE, UNSPECIFIED Assessment/Plan IMP ACUTE ON CHRONIC HYPOXEMIC RESPIRATORY FAILURE IMPROVING CHRONIC HYPOXEMIC/HYPERCAPNEIC RESPIRATORY FAILURE COPD EXACERBATION IMPROVING DIASTOLIC HF CHEST PAIN PULMONARY HTN COR PULMONALE OBESITY-HYPOVENTILATION SYNDROME ACUTE ON CHRONIC KIDNEY DISEASE HTN DM TATI PLAN NIPPV AT NIGHT AND NEEDED TO HELP REDUCE WORK OF BREATHING O2 TO MAINTAIN O2 SAT 90% OR GREATER PREDNISONE BIPAP AT NIGHT AND PRN INHALED BRONCHODILATORS LASIX DAILY WT DVT PROPHYLAXIS MONITOR LYTES,RENAL FUNCTION DR SALVADOR Problem List - Problems (1) CKD (chronic kidney disease) Code(s): N18.9 - CHRONIC KIDNEY DISEASE, UNSPECIFIED (2) COPD exacerbation Code(s): J44.1 - CHRONIC OBSTRUCTIVE PULMONARY DISEASE W (ACUTE) EXACERBATION (3) Acute exacerbation of CHF (congestive heart failure) Code(s): I50.9 - HEART FAILURE, UNSPECIFIED (4) Acute on chronic respiratory failure with hypoxia and hypercapnia Code(s): J96.21 - ACUTE AND CHRONIC RESPIRATORY FAILURE WITH HYPOXIA; J96.22 - ACUTE AND CHRONIC RESPIRATORY FAILURE WITH HYPERCAPNIA (5) Acute renal failure Code(s): N17.9 - ACUTE KIDNEY FAILURE, UNSPECIFIED (6) Diabetes Code(s): E11.9 - TYPE 2 DIABETES MELLITUS WITHOUT COMPLICATIONS (7) Hypertension Code(s): I10 - ESSENTIAL (PRIMARY) HYPERTENSION Qualifiers: Hypertension type: unspecified Qualified Code(s): I10 - Essential (primary ) hypertension (8) Morbid exogenous obesity Code(s): E66.01 - MORBID (SEVERE) OBESITY DUE TO EXCESS CALORIES (9) Morbid obesity Code(s): E66.01 - MORBID (SEVERE) OBESITY DUE TO EXCESS CALORIES (10) Obesity hypoventilation syndrome Code(s): E66.2 - MORBID (SEVERE) OBESITY WITH ALVEOLAR HYPOVENTILATION (11) Pulmonary HTN Code(s): I27.2 - OTHER SECONDARY PULMONARY HYPERTENSION * DO NOT USE * (12) Respiratory distress Code(s): R06.00 - DYSPNEA, UNSPECIFIED (13) Shortness of breath Code(s): R06.02 - SHORTNESS OF BREATH (14) Sleep apnea Code(s): G47.30 - SLEEP APNEA, UNSPECIFIED (15) Acute on chronic kidney failure Code(s): N17.9 - ACUTE KIDNEY FAILURE, UNSPECIFIED; N18.9 - CHRONIC KIDNEY DISEASE, UNSPECIFIED
--- NOTE | 2018-08-27 15:15 | PN ---
Progress Note, Physician Chief Complaint: Pt A&OX3; sitting up; dyspnea on mild exertion. History of Present Illness: The patient is a 47-year-old black male with a past medical history significant for morbid obesity, DM, HTN, HLD, COPD (on home O2, recently increased from 2L to 4L by PCP) presents to the emergency department with chest pain, SOB and a cough. The patient presents with shortness of breath, chest pain, and productive cough with greyish-white sputum production, with mild hemoptysis. The patient reports the chest pain is sharp and pleuritic in quality, with a severity of 6/10. The patient reports the pain presented while at rest, now aggravated with exertion. The patient reports hes been noncompliant with breathing treatments secondary to problems with the machine. Denies recent travel. Denies hx of blood clots. Patient reports a history of lymphedema, with increased leg and scrotal swelling. The patient reports a recent medication change by his shade hanger; however, he is unsure which medication. Allergies: NKDA PCP: Dr. Sukumar Ortiz. - Current Medication List Current Medications: Active Medications Aspirin (Asa -) 81 mg PO DAILY [facility] Last Admin: 08/27/18 09:41 Dose: 81 mg Benzocaine/Butamben/Tetracaine HCl (Cetacaine [place] -) 1 spray TP DAILY [facility] Last Admin: 08/27/18 09:44 Dose: 1 spray Budesonide/Formoterol Fumarate (Symbicort 160/4.5mcg -) 1 puff IH BID [facility] Last Admin: 08/27/18 09:42 Dose: 1 puff Docusate Sodium (Colace -) 100 mg PO TID [facility] Ferrous Sulfate (Feosol -) 325 mg PO TID [facility] Last Admin: 08/27/18 13:58 Dose: 325 mg Furosemide (Lasix Injection -) 60 mg IVPUSH BID@0600,1400 [facility] Last Admin: 08/27/18 13:57 Dose: 60 mg Gabapentin (Neurontin -) 300 mg PO TID [facility] Last Admin: 08/27/18 13:58 Dose: 300 mg Heparin Sodium (Porcine) (Heparin -) 1,000 unit IVPUSH PRN PRN PRN Reason: Heparin Last Admin: 08/27/18 08:43 Dose: 1,000 unit Heparin Sodium (Porcine) (Heparin -) 5,000 unit IVPUSH PRN PRN PRN Reason: Heparin Hydralazine HCl (Apresoline -) 100 mg PO TID [facility] Last Admin: 08/27/18 13:58 Dose: 100 mg Heparin Sodium (Porcine) 25, (000 unit/ Sodium Chloride) 500 mls @ 20 mls/hr IV TITR [facility]; Protocol Last Admin: 08/27/18 12:42 Dose: 1,300 unit/hr, 26 mls/hr Insulin Aspart (Novolog Mix 70/30 Vial) 40 units SQ BIDAC [facility] Last Admin: 08/27/18 06:04 Dose: 40 units Insulin Aspart (Novolog Vial Sliding Scale -) 1 vial SQ ACHS [facility]; Protocol Last Admin: 08/27/18 11:26 Dose: Not Given Insulin Detemir (Levemir Vial) 25 units SQ HS [facility] Last Admin: 08/26/18 22:44 Dose: 25 units Isosorbide Mononitrate (Imdur -) 60 mg PO DAILY [facility] Last Admin: 08/27/18 09:41 Dose: 60 mg Losartan Potassium (Cozaar -) 50 mg PO DAILY [facility] Last Admin: 08/27/18 11:29 Dose: 50 mg Metolazone (Zaroxolyn -) 5 mg PO DAILY [facility] Last Admin: 08/27/18 09:41 Dose: 5 mg Nifedipine (Procardia Xl -) 90 mg PO DAILY [facility] Last Admin: 08/27/18 09:41 Dose: 90 mg Prednisone (Deltasone -) 20 mg PO DAILY [facility] Last Admin: 08/27/18 11:30 Dose: 20 mg Rosuvastatin Calcium (Crestor -) 5 mg PO HS [facility] Last Admin: 08/26/18 22:43 Dose: 5 mg Senna (Senna -) 2 tab PO HS PRN PRN Reason: CONSTIPATION Tamsulosin HCl (Flomax -) 0.4 mg PO DAILY@0830 [facility] Last Admin: 08/27/18 08:29 Dose: 0.4 mg - Objective Vital Signs: Vital Signs Temperature 98.0 F 08/27/18 08:19 Pulse Rate 88 08/27/18 08:19 Respiratory Rate 20 08/27/18 08:19 Blood Pressure 149/78 08/27/18 08:19 O2 Sat by Pulse Oximetry (%) 95 08/27/18 08:19 Constitutional: Yes: Anxious Eyes: Yes: WNL HENT: Yes: WNL Neck: Yes: WNL Cardiovascular: Yes: S1, S2, S4 Gastrointestinal: Yes: Soft, Abdomen, Obese ...Rectal Exam: Yes: Deferred Genitourinary: No: Anuria Musculoskeletal: Yes: Back Pain, Joint Stiffness, Joint Swelling, Muscle Weakness Extremities: Yes: Cool Edema: Yes (marked scrotal, LE edema) Peripheral Pulses WNL: No Peripheral Pulses: Left Doralis Pedis: 1+, Right Dorsalis Pedis: 1+ Integumentary: Yes: Venous Stasis Changes Neurological: Yes: Alert, Oriented, Unsteady Gait (essentially bed bound ( obesity; weakness in knees)), Weakness Psychiatric: Yes: Alert, Oriented, Other (comprehension of his physical condition seems limited) Labs: CBC, BMP 08/27/18 05:40 08/26/18 05:30 INR, PTT INR 1.10 (0.83-1.09) H 08/12/18 21:00 Abnormal Lab Results 08/27/18 08/27/18 08/27/18 05:40 05:40 15:15 WBC 13.2 H Hgb 11.2 L MCHC 30.9 L RDW 18.0 H PTT (Actin FS) 44.6 H 49.2 H - ....Imaging Other: Image Reviewed (telemetry: NSR) Problem List - Problems (1) Acute on chronic kidney failure Assessment/Plan: On fruosemide and metolazone. f/u with shade hanger. Code(s): N17.9 - ACUTE KIDNEY FAILURE, UNSPECIFIED; N18.9 - CHRONIC KIDNEY DISEASE, UNSPECIFIED (2) COPD exacerbation Code(s): J44.1 - CHRONIC OBSTRUCTIVE PULMONARY DISEASE W (ACUTE) EXACERBATION (3) Acute on chronic respiratory failure with hypoxia and hypercapnia Assessment/Plan: Steroids, bronchodilators, O2, Bipap, antibiotics per airplane captain. Code(s): J96.21 - ACUTE AND CHRONIC RESPIRATORY FAILURE WITH HYPOXIA; J96.22 - ACUTE AND CHRONIC RESPIRATORY FAILURE WITH HYPERCAPNIA (4) Diastolic CHF Assessment/Plan: On nifedipine XL, hydrlazine, furosemide, and metolazone; Imdur added. (Recommend eventually discontinuing nifedipine: risks of edema, heart failure). Hydralazine may also contribute to edema. ECHO: normal LVEF: abnormal diastolic compliance; RV dilatation and reduced RVEF ; evidence of fluid overload (flattened ventricular septum). F/u BUN/Cr, electrolytes, daily weight, Is and Os. Code(s): I50.30 - UNSPECIFIED DIASTOLIC (CONGESTIVE) HEART FAILURE (5) Renal insufficiency Code(s): N28.9 - DISORDER OF KIDNEY AND URETER, UNSPECIFIED (6) Respiratory distress Code(s): R06.00 - DYSPNEA, UNSPECIFIED (7) Sleep apnea Code(s): G47.30 - SLEEP APNEA, UNSPECIFIED (8) Morbid obesity Code(s): E66.01 - MORBID (SEVERE) OBESITY DUE TO EXCESS CALORIES (9) Aortic root dilatation Code(s): I77.810 - THORACIC AORTIC ECTASIA (10) Knee pain Assessment/Plan: bilateral knee pain; hx bilateral arthroscopic surgery. Code(s): M25.569 - PAIN IN UNSPECIFIED KNEE (11) Depression Assessment/Plan: Pt's former work associate, who says she is Lupillo's "substitute mother"(his biological mother a few months ago), says he has had periods of severe depression for many years. A few years ago, he had to be admitted to [facility] psychiatric floor. He has talked of committing suicde in the past. When his sister a few years ago, and upon his mother's , he gained abou 100 lbs within amonth each time. She says he "loves starches"; while confined at home, he calls out constantly for fast food in large portions. She took him to gastric bypass surgeon at [facility]; Cindy was considered at high risk for surgery. F/u with psychologist/psychiatrist. f/u with pocket cutter. Code(s): F32.9 - MAJOR DEPRESSIVE DISORDER, SINGLE EPISODE, UNSPECIFIED (12) Atypical chest pain Assessment/Plan: No further chest pain x 72 hrs. TNI 0.03. No arrhythymias. Will d/c IV heparin. (Pt says he had a catheterizationof the heart a few years ago at this hospital he believes was for the coronary arteries. 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 Code(s): R07.89 - OTHER CHEST PAIN
--- NOTE | 2018-08-27 22:24 | HP ---
Admitting History and Physical - Past Medical History Cardiovascular: Yes: HTN, Hyperlipdemia, Pulmonary Hypertension, Other (morbid obesity; sedentary) Pulmonary: Yes: Bronchitis, COPD Renal/: Yes: Renal Inusuff Psych: Yes: Anxiety Endocrine: Yes: Diabetes Mellitus - Past Surgical History Past Surgical History: Yes: Arthrosocopy (b/l knees) - Smoking History Smoking history: Unknown if ever smoked Have you smoked in the past 12 months: No Aproximately how many cigarettes per day: 0 If you are a former smoker, when did you quit?: 1998 - Alcohol/Substance Use Hx Alcohol Use: No History of Substance Use: reports: None - Social History ADL: Family Assistance History of Recent Travel: No Home Medications - Allergies Allergies/Adverse Reactions: Allergies Allergy/AdvReac Type Severity Reaction Status Date / Time No Known Allergies Allergy Verified 08/12/18 20:42 - Home Medications Home Medications: Ambulatory Orders Aspirin 81 mg PO DAILY 08/13/18 Gabapentin [Neurontin -] 300 mg PO Q8H 08/13/18 Hydralazine HCl 25 mg PO TID 08/13/18 Omeprazole 20 mg PO DAILY 08/13/18 Rosuvastatin [Crestor -] 5 mg PO HS 08/13/18 Family Disease History - Family Disease History Family Disease History: Diabetes: Grandparent, Father, Heart Disease: Father, CA : Mother Physical Examination Vital Signs: Vital Signs Temperature 98.0 F 08/27/18 17:06 Pulse Rate 90 08/27/18 17:06 Respiratory Rate 20 08/27/18 17:06 Blood Pressure 150/79 08/27/18 17:06 O2 Sat by Pulse Oximetry (%) 95 08/27/18 08:19 Labs: CBC, BMP 08/27/18 05:40 08/26/18 05:30 Problem List - Problems (1) Diastolic CHF Code(s): I50.30 - UNSPECIFIED DIASTOLIC (CONGESTIVE) HEART FAILURE (2) COPD exacerbation Code(s): J44.1 - CHRONIC OBSTRUCTIVE PULMONARY DISEASE W (ACUTE) EXACERBATION (3) Acute on chronic kidney failure Code(s): N17.9 - ACUTE KIDNEY FAILURE, UNSPECIFIED; N18.9 - CHRONIC KIDNEY DISEASE, UNSPECIFIED (4) Acute on chronic respiratory failure with hypoxia and hypercapnia Code(s): J96.21 - ACUTE AND CHRONIC RESPIRATORY FAILURE WITH HYPOXIA; J96.22 - ACUTE AND CHRONIC RESPIRATORY FAILURE WITH HYPERCAPNIA (5) Diabetes Code(s): E11.9 - TYPE 2 DIABETES MELLITUS WITHOUT COMPLICATIONS (6) Hyperlipidemia Code(s): E78.5 - HYPERLIPIDEMIA, UNSPECIFIED (7) Hypertension Code(s): I10 - ESSENTIAL (PRIMARY) HYPERTENSION Qualifiers: Hypertension type: unspecified Qualified Code(s): I10 - Essential (primary ) hypertension (8) Morbid obesity Code(s): E66.01 - MORBID (SEVERE) OBESITY DUE TO EXCESS CALORIES (9) Sleep apnea Code(s): G47.30 - SLEEP APNEA, UNSPECIFIED (10) Abscess Code(s): L02.91 - CUTANEOUS ABSCESS, UNSPECIFIED (11) Chest pain Code(s): R07.9 - CHEST PAIN, UNSPECIFIED
[2018-08-27] MEDS: HEPARIN NA (PORCINE) 5,000 UNITS/ML 1ML VIAL SQ SCH (22:59)
[2018-08-27] MEDS: ROSUVASTATIN CA 5 MG TABLET (FP) PO SCH (22:59)
[2018-08-27] MEDS: INSULIN (LEVEMIR) 100 UNITS/ML UNITS SQ SCH (22:59)
--- NOTE | 2018-08-27 23:47 | PN ---
Progress Note, Physician History of Present Illness: No new complaints - Current Medication List Current Medications: Active Medications Aspirin (Asa -) 81 mg PO DAILY [facility] Last Admin: 08/27/18 09:41 Dose: 81 mg Benzocaine/Butamben/Tetracaine HCl (Cetacaine [place] -) 1 spray TP DAILY [facility] Last Admin: 08/27/18 09:44 Dose: 1 spray Budesonide/Formoterol Fumarate (Symbicort 160/4.5mcg -) 1 puff IH BID [facility] Last Admin: 08/27/18 23:00 Dose: 1 puff Docusate Sodium (Colace -) 100 mg PO TID [facility] Last Admin: 08/27/18 23:01 Dose: Not Given Ferrous Sulfate (Feosol -) 325 mg PO TID [facility] Last Admin: 08/27/18 22:59 Dose: 325 mg Furosemide (Lasix Injection -) 60 mg IVPUSH BID@0600,1400 [facility] Last Admin: 08/27/18 13:57 Dose: 60 mg Gabapentin (Neurontin -) 300 mg PO TID [facility] Last Admin: 08/27/18 22:59 Dose: 300 mg Heparin Sodium (Porcine) (Heparin -) 5,000 unit SQ TID [facility] Last Admin: 08/27/18 22:59 Dose: 5,000 unit Hydralazine HCl (Apresoline -) 100 mg PO TID [facility] Last Admin: 08/27/18 22:58 Dose: 100 mg Insulin Aspart (Novolog Mix 70/30 Vial) 40 units SQ BIDAC [facility] Last Admin: 08/27/18 17:07 Dose: 40 units Insulin Aspart (Novolog Vial Sliding Scale -) 1 vial SQ [facility]; Protocol Last Admin: 08/27/18 22:59 Dose: 8 units Insulin Detemir (Levemir Vial) 25 units SQ HS [facility] Last Admin: 08/27/18 22:59 Dose: 25 units Isosorbide Mononitrate (Imdur -) 60 mg PO DAILY [facility] Last Admin: 08/27/18 09:41 Dose: 60 mg Losartan Potassium (Cozaar -) 50 mg PO DAILY [facility] Last Admin: 08/27/18 11:29 Dose: 50 mg Metolazone (Zaroxolyn -) 5 mg PO DAILY [facility] Last Admin: 08/27/18 09:41 Dose: 5 mg Nifedipine (Procardia Xl -) 90 mg PO DAILY [facility] Last Admin: 08/27/18 09:41 Dose: 90 mg Prednisone (Deltasone -) 20 mg PO DAILY [facility] Last Admin: 08/27/18 11:30 Dose: 20 mg Rosuvastatin Calcium (Crestor -) 5 mg PO HS [facility] Last Admin: 08/27/18 22:59 Dose: 5 mg Senna (Senna -) 2 tab PO HS PRN PRN Reason: CONSTIPATION Tamsulosin HCl (Flomax -) 0.4 mg PO DAILY@0830 [facility] Last Admin: 08/27/18 08:29 Dose: 0.4 mg - Objective Vital Signs: Vital Signs Temperature 98.0 F 08/27/18 17:06 Pulse Rate 90 08/27/18 17:06 Respiratory Rate 20 08/27/18 17:06 Blood Pressure 150/79 08/27/18 17:06 O2 Sat by Pulse Oximetry (%) 95 08/27/18 08:19 Neck: Yes: WNL, Supple Cardiovascular: Yes: WNL, Regular Rate and Rhythm Respiratory: Yes: Diminished Gastrointestinal: Yes: WNL, Normal Bowel Sounds, Soft, Abdomen, Obese Labs: CBC, BMP 08/27/18 05:40 08/26/18 05:30 INR, PTT INR 1.10 (0.83-1.09) H 08/12/18 21:00 Problem List - Problems (1) Diastolic CHF Assessment/Plan: Acute on chronic diastolic heart failure Cont IV lasix/zaroxolyn Monitor electrolytes Code(s): I50.30 - UNSPECIFIED DIASTOLIC (CONGESTIVE) HEART FAILURE (2) COPD exacerbation Assessment/Plan: Cont po sterpoids Cont nebulizers Code(s): J44.1 - CHRONIC OBSTRUCTIVE PULMONARY DISEASE W (ACUTE) EXACERBATION (3) Acute on chronic kidney failure Assessment/Plan: Cont to monitor labs Code(s): N17.9 - ACUTE KIDNEY FAILURE, UNSPECIFIED; N18.9 - CHRONIC KIDNEY DISEASE, UNSPECIFIED (4) Acute on chronic respiratory failure with hypoxia and hypercapnia Code(s): J96.21 - ACUTE AND CHRONIC RESPIRATORY FAILURE WITH HYPOXIA; J96.22 - ACUTE AND CHRONIC RESPIRATORY FAILURE WITH HYPERCAPNIA (5) Diabetes Assessment/Plan: Cont sliding scale w/ coverage Code(s): E11.9 - TYPE 2 DIABETES MELLITUS WITHOUT COMPLICATIONS (6) Hyperlipidemia Code(s): E78.5 - HYPERLIPIDEMIA, UNSPECIFIED (7) Hypertension Code(s): I10 - ESSENTIAL (PRIMARY) HYPERTENSION Qualifiers: Hypertension type: unspecified Qualified Code(s): I10 - Essential (primary ) hypertension (8) Morbid obesity Code(s): E66.01 - MORBID (SEVERE) OBESITY DUE TO EXCESS CALORIES (9) Sleep apnea Code(s): G47.30 - SLEEP APNEA, UNSPECIFIED (10) Abscess Code(s): L02.91 - CUTANEOUS ABSCESS, UNSPECIFIED (11) Chest pain Code(s): R07.9 - CHEST PAIN, UNSPECIFIED
--- NOTE | 2018-08-28 02:39 | HOSP ---
Subjective - Review of Symptoms Events since last encounter: Hospitalist Encounter Notified by the RN that the patient reports having chest pain. He is a patient of Dr. Nixon, who asked that the Hospitalist to evaluate. Subjective: Arrived to bedside, patient is awake, alert and oriented, reports L- under breast CP. States" It feels like a gas pain". PE performed see EMR Assessment: 47 year-old male with a PMH significant for HTN, HLD, COPD on 4L, Type II IDDM, CKD, and morbid obesity. Plan: Stat EKG Stat Troponin Cardiovascular: Yes: Chest Pain Physical Examination Vital Signs: Vital Signs Temperature 98.0 F 08/28/18 02:00 Pulse Rate 88 08/28/18 02:00 Respiratory Rate 20 08/28/18 02:00 Blood Pressure 129/99 08/28/18 02:00 O2 Sat by Pulse Oximetry (%) 95 08/28/18 00:59 Constitutional: Yes: Anxious, Mild Distress, Obese Eyes: Yes: WNL, Conjunctiva Clear, EOM Intact, PERRL HENT: Yes: WNL, Atraumatic, Normocephalic Neck: Yes: WNL, Supple, Trachea Midline Cardiovascular: Yes: Regular Rate and Rhythm, S1, S2, Other (CP reproducible on palpation) Respiratory: Yes: Diminished, On Nasal O2, Rhonchi Gastrointestinal: Yes: Soft, Abdomen, Obese Neurological: Yes: WNL, Alert, Oriented, Cran Nerves II-XII Intact ...Motor Strength: WNL Psychiatric: Yes: WNL, Alert, Oriented Labs: CBC, BMP 08/27/18 05:40 08/26/18 05:30 Hospitalist Encounter Outcome: EKG reviewed- NSR no ST or acute changes Troponin I- negative
[2018-08-28] MEDS: INSULIN SLIDING SCALE (NOVOLOG) 1 VIAL SQ SCH ×4 (06:21→22:22)
[2018-08-28] MEDS: FERROUS SO4 325 MG TABLET (FP) PO SCH ×3 (06:22→22:22)
[2018-08-28] MEDS: hydrALAZINE HCL 50 MG TABLET (FP) PO SCH ×3 (06:22→22:21)
[2018-08-28] MEDS: HEPARIN NA (PORCINE) 5,000 UNITS/ML 1ML VIAL SQ SCH ×3 (06:22→22:21)
[2018-08-28] MEDS: FUROSEMIDE 40 MG/4 ML INJECTABLE VIAL IVPUSH SCH (06:22)
[2018-08-28] MEDS: GABAPENTIN 300 MG CAPSULE (FP) PO SCH ×3 (06:22→22:22)
[2018-08-28] MEDS: DOCUSATE SODIUM 100 MG CAPSULE (FP) PO SCH ×3 (06:23→22:21)
[2018-08-28] MEDS: INSULIN (NOVOLOG MIX 70/30) 100 UNITS/ML MDV SQ SCH ×2 (06:39→17:24)
--- NOTE | 2018-08-28 07:43 | PN ---
Progress Note, Physician Chief Complaint: Pt A&OX3; no chest pain. History of Present Illness: The patient is a 47-year-old black male with a past medical history significant for morbid obesity, DM, HTN, HLD, COPD (on home O2, recently increased from 2L to 4L by PCP), depression, who presents to the emergency department with chest pain, SOB and a cough. The patient presents with shortness of breath, chest pain , and productive cough with greyish-white sputum production, with mild hemoptysis. The patient reports the chest pain is sharp and pleuritic in quality , with a severity of 6/10. The patient reports the pain presented while at rest , now aggravated with exertion. The patient reports hes been noncompliant with breathing treatments secondary to problems with the machine. Denies recent travel. Denies hx of blood clots. Patient reports a history of lymphedema, with increased leg and scrotal swelling. The patient reports a recent medication change by his production control expediter; however, he is unsure which medication. Allergies: NKDA PCP: Dr. Sukumar Ortiz. - Current Medication List Current Medications: Active Medications Aspirin (Asa -) 81 mg PO DAILY [facility] Last Admin: 08/27/18 09:41 Dose: 81 mg Benzocaine/Butamben/Tetracaine HCl (Cetacaine [place] -) 1 spray TP DAILY [facility] Last Admin: 08/27/18 09:44 Dose: 1 spray Budesonide/Formoterol Fumarate (Symbicort 160/4.5mcg -) 1 puff IH BID [facility] Last Admin: 08/27/18 23:00 Dose: 1 puff Docusate Sodium (Colace -) 100 mg PO TID [facility] Last Admin: 08/28/18 06:23 Dose: Not Given Ferrous Sulfate (Feosol -) 325 mg PO TID [facility] Last Admin: 08/28/18 06:22 Dose: 325 mg Furosemide (Lasix Injection -) 60 mg IVPUSH BID@0600,1400 [facility] Last Admin: 08/28/18 06:22 Dose: 60 mg Gabapentin (Neurontin -) 300 mg PO TID [facility] Last Admin: 08/28/18 06:22 Dose: 300 mg Heparin Sodium (Porcine) (Heparin -) 5,000 unit SQ TID [facility] Last Admin: 08/28/18 06:22 Dose: 5,000 unit Hydralazine HCl (Apresoline -) 100 mg PO TID [facility] Last Admin: 08/28/18 06:22 Dose: 100 mg Insulin Aspart (Novolog Mix 70/30 Vial) 40 units SQ BIDAC [facility] Last Admin: 08/28/18 06:39 Dose: Not Given Insulin Aspart (Novolog Vial Sliding Scale -) 1 vial SQ ACHS [facility]; Protocol Last Admin: 08/28/18 06:21 Dose: Not Given Insulin Detemir (Levemir Vial) 25 units SQ HS [facility] Last Admin: 08/27/18 22:59 Dose: 25 units Isosorbide Mononitrate (Imdur -) 60 mg PO DAILY [facility] Last Admin: 08/27/18 09:41 Dose: 60 mg Losartan Potassium (Cozaar -) 50 mg PO DAILY [facility] Last Admin: 08/27/18 11:29 Dose: 50 mg Metolazone (Zaroxolyn -) 5 mg PO DAILY [facility] Last Admin: 08/27/18 09:41 Dose: 5 mg Nifedipine (Procardia Xl -) 90 mg PO DAILY [facility] Last Admin: 08/27/18 09:41 Dose: 90 mg Prednisone (Deltasone -) 20 mg PO DAILY [facility] Last Admin: 08/27/18 11:30 Dose: 20 mg Rosuvastatin Calcium (Crestor -) 5 mg PO HS [facility] Last Admin: 08/27/18 22:59 Dose: 5 mg Senna (Senna -) 2 tab PO HS PRN PRN Reason: CONSTIPATION Tamsulosin HCl (Flomax -) 0.4 mg PO DAILY@0830 [facility] Last Admin: 08/27/18 08:29 Dose: 0.4 mg - Objective Vital Signs: Vital Signs Temperature 97.7 F 08/28/18 06:00 Pulse Rate 84 08/28/18 06:00 Respiratory Rate 20 08/28/18 06:00 Blood Pressure 122/70 08/28/18 06:00 O2 Sat by Pulse Oximetry (%) 95 08/28/18 00:59 Constitutional: Yes: Calm Eyes: Yes: WNL HENT: Yes: WNL Cardiovascular: Yes: Regular Rate and Rhythm, S1, S2 Respiratory: Yes: Diminished, SOB on Exertion Gastrointestinal: Yes: Soft, Abdomen, Obese ...Rectal Exam: Yes: Deferred Genitourinary: Yes: Anuria Musculoskeletal: Yes: Back Pain, Joint Stiffness, Muscle Weakness Extremities: Yes: Cool Edema: Yes Peripheral Pulses WNL: No Integumentary: Yes: Venous Stasis Changes Neurological: Yes: Alert, Oriented, Weakness Psychiatric: Yes: Alert, Oriented Labs: INR, PTT INR 1.10 (0.83-1.09) H 08/12/18 21:00 Abnormal Lab Results 08/27/18 08/27/18 08/27/18 05:40 05:40 15:15 WBC 13.2 H Hgb 11.2 L MCHC 30.9 L RDW 18.0 H PTT (Actin FS) 44.6 H 49.2 H Problem List - Problems (1) Acute on chronic kidney failure Assessment/Plan: On fruosemide and metolazone. f/u with production control expediter. Code(s): N17.9 - ACUTE KIDNEY FAILURE, UNSPECIFIED; N18.9 - CHRONIC KIDNEY DISEASE, UNSPECIFIED (2) COPD exacerbation Assessment/Plan: f/u with composite boat builder. Code(s): J44.1 - CHRONIC OBSTRUCTIVE PULMONARY DISEASE W (ACUTE) EXACERBATION (3) Acute on chronic respiratory failure with hypoxia and hypercapnia Assessment/Plan: Steroids, bronchodilators, O2, Bipap, antibiotics per composite boat builder. Code(s): J96.21 - ACUTE AND CHRONIC RESPIRATORY FAILURE WITH HYPOXIA; J96.22 - ACUTE AND CHRONIC RESPIRATORY FAILURE WITH HYPERCAPNIA (4) Diastolic CHF Assessment/Plan: On nifedipine XL, hydrlazine, furosemide, and metolazone; Imdur added. (Recommend eventually discontinuing nifedipine: risks of edema, heart failure). Hydralazine may also contribute to edema. ECHO: normal LVEF: abnormal diastolic compliance; RV dilatation and reduced RVEF ; evidence of fluid overload (flattened ventricular septum). F/u BUN/Cr, electrolytes, daily weight, Is and Os. Code(s): I50.30 - UNSPECIFIED DIASTOLIC (CONGESTIVE) HEART FAILURE (5) Renal insufficiency Code(s): N28.9 - DISORDER OF KIDNEY AND URETER, UNSPECIFIED (6) Respiratory distress Code(s): R06.00 - DYSPNEA, UNSPECIFIED (7) Sleep apnea Code(s): G47.30 - SLEEP APNEA, UNSPECIFIED (8) Morbid obesity Assessment/Plan: Pt has had discussions in the past regarding gastric bypass surgery. See under "depression". Code(s): E66.01 - MORBID (SEVERE) OBESITY DUE TO EXCESS CALORIES (9) Aortic root dilatation Assessment/Plan: Mild dilatation by ECHO this visit. F/u prior studies for comparison. CTA problematic due to renal dysfunction. Code(s): I77.810 - THORACIC AORTIC ECTASIA (10) Knee pain Assessment/Plan: bilateral knee pain; hx bilateral arthroscopic surgery. Code(s): M25.569 - PAIN IN UNSPECIFIED KNEE (11) Depression Assessment/Plan: Pt's former work associate, who says she is Lupillo's "substitute mother"(his biological mother a few months ago), says he has had periods of severe depression for many years. A few years ago, he had to be admitted to [facility] psychiatric floor. He has talked of committing suicde in the past. When his sister a few years ago, and upon his mother's , he gained abou 100 lbs within amonth each time. She says he "loves starches"; while confined at home, he calls out constantly for fast food in large portions. She took him to gastric bypass surgeon at [facility]; Cindy was considered at high risk for surgery. F/u with psychologist/psychiatrist. f/u with tile helper. Code(s): F32.9 - MAJOR DEPRESSIVE DISORDER, SINGLE EPISODE, UNSPECIFIED (12) Atypical chest pain Assessment/Plan: No further chest pain x 72 hrs. TNI 0.03. No arrhythymias. D/jing IV heparin. (Pt says he had a catheterization of the heart a few years ago at this hospital he believes was for the coronary arteries. 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 Code(s): R07.89 - OTHER CHEST PAIN
[2018-08-28 07:46] LABS: HEMATOCRIT 35.9 % (35.4-49); HEMOGLOBIN 11.2 GM/dL (11.7-16.9); MCH 27.7 pg (25.7-33.7); MCHC 31.1 g/dl (32.0-35.9); MEAN PLT VOLUME 8.4 fl (7.5-11.1); PLATELET COUNT 219 K/MM3 (134-434); RBC 4.03 M/mm3 (4.00-5.60); RDW 18.7 % (11.9-15.9); WHITE BLOOD COUNT 12.6 K/mm3 (4.0-10.0)
[2018-08-28 08:31] LABS: ALBUMIN 3.2 g/dl (3.4-5.0); BILIRUBIN,TOTAL 1.2 mg/dL (0.2-1); CALCIUM 8.5 mg/dL (8.5-10.1); POTASSIUM 3.9 mmol/L (3.5-5.1); TOT PROT 6.1 g/dl (6.4-8.2)
[2018-08-28 09:02] LABS: BLOOD UREA NITROGEN 109.4 mg/dL (7-18)
--- NOTE | 2018-08-28 09:28 | PN ---
Progress Note, Physician History of Present Illness: The patient is a 47-year-old male with a past medical history significant for morbid obesity, DM, HTN, HLD, COPD (on home O2, recently increased from 2L to 4L by PCP) presents to the emergency department with chest pain, SOB and a cough. The patient presents with shortness of breath, chest pain, and productive cough with greyish-white sputum production, with mild hemoptysis. The patient reports the chest pain is sharp and pleuritic in quality, with a severity of 6/10. The patient reports the pain presented while at rest, now aggravated with exertion. The patient reports hes been noncompliant with breathing treatments secondary to problems with the machine. Denies recent travel. Denies hx of blood clots. Patient reports a history of lymphedema, with increased leg swelling. The patient reports a recent medication change by his circulation assistant; however, he is unsure which medication. Allergies: NKDA PCP: Dr. Sukumar Ortiz. - Current Medication List Current Medications: Active Medications Aspirin (Asa -) 81 mg PO DAILY [facility] Last Admin: 08/27/18 09:41 Dose: 81 mg Benzocaine/Butamben/Tetracaine HCl (Cetacaine [place] -) 1 spray TP DAILY [facility] Last Admin: 08/27/18 09:44 Dose: 1 spray Budesonide/Formoterol Fumarate (Symbicort 160/4.5mcg -) 1 puff IH BID [facility] Last Admin: 08/27/18 23:00 Dose: 1 puff Docusate Sodium (Colace -) 100 mg PO TID [facility] Last Admin: 08/28/18 06:23 Dose: Not Given Ferrous Sulfate (Feosol -) 325 mg PO TID [facility] Last Admin: 08/28/18 06:22 Dose: 325 mg Furosemide (Lasix Injection -) 60 mg IVPUSH BID@0600,1400 [facility] Last Admin: 08/28/18 06:22 Dose: 60 mg Gabapentin (Neurontin -) 300 mg PO TID [facility] Last Admin: 08/28/18 06:22 Dose: 300 mg Heparin Sodium (Porcine) (Heparin -) 5,000 unit SQ TID [facility] Last Admin: 08/28/18 06:22 Dose: 5,000 unit Hydralazine HCl (Apresoline -) 100 mg PO TID [facility] Last Admin: 08/28/18 06:22 Dose: 100 mg Insulin Aspart (Novolog Mix 70/30 Vial) 40 units SQ BIDAC [facility] Last Admin: 08/28/18 06:39 Dose: Not Given Insulin Aspart (Novolog Vial Sliding Scale -) 1 vial SQ ACHS [facility]; Protocol Last Admin: 08/28/18 06:21 Dose: Not Given Insulin Detemir (Levemir Vial) 25 units SQ HS [facility] Last Admin: 08/27/18 22:59 Dose: 25 units Isosorbide Mononitrate (Imdur -) 60 mg PO DAILY [facility] Last Admin: 08/27/18 09:41 Dose: 60 mg Losartan Potassium (Cozaar -) 50 mg PO DAILY [facility] Last Admin: 08/27/18 11:29 Dose: 50 mg Metolazone (Zaroxolyn -) 5 mg PO DAILY [facility] Last Admin: 08/27/18 09:41 Dose: 5 mg Nifedipine (Procardia Xl -) 90 mg PO DAILY [facility] Last Admin: 08/27/18 09:41 Dose: 90 mg Prednisone (Deltasone -) 20 mg PO DAILY [facility] Last Admin: 08/27/18 11:30 Dose: 20 mg Rosuvastatin Calcium (Crestor -) 5 mg PO HS [facility] Last Admin: 08/27/18 22:59 Dose: 5 mg Senna (Senna -) 2 tab PO HS PRN PRN Reason: CONSTIPATION Tamsulosin HCl (Flomax -) 0.4 mg PO DAILY@0830 [facility] Last Admin: 08/27/18 08:29 Dose: 0.4 mg - Objective Vital Signs: Vital Signs Temperature 97.7 F 08/28/18 06:00 Pulse Rate 84 08/28/18 06:00 Respiratory Rate 20 08/28/18 06:00 Blood Pressure 122/70 08/28/18 06:00 O2 Sat by Pulse Oximetry (%) 95 08/28/18 00:59 Eyes: Yes: WNL, Conjunctiva Clear, EOM Intact HENT: Yes: WNL, Atraumatic, Normocephalic Neck: Yes: WNL, Supple, Trachea Midline Cardiovascular: Yes: WNL, Regular Rate and Rhythm Respiratory: Yes: WNL, Regular, CTA Bilaterally Gastrointestinal: Yes: WNL, Normal Bowel Sounds Genitourinary: Yes: WNL Musculoskeletal: Yes: WNL Extremities: Yes: WNL Edema: Yes Integumentary: Yes: WNL Neurological: Yes: WNL, Alert, Oriented ...Motor Strength: WNL Psychiatric: Yes: WNL Labs: CBC, BMP 08/28/18 05:53 INR, PTT INR 1.10 (0.83-1.09) H 08/12/18 21:00 Problem List - Problems (1) COPD exacerbation Code(s): J44.1 - CHRONIC OBSTRUCTIVE PULMONARY DISEASE W (ACUTE) EXACERBATION (2) Chest pain Code(s): R07.9 - CHEST PAIN, UNSPECIFIED (3) Acute exacerbation of CHF (congestive heart failure) Code(s): I50.9 - HEART FAILURE, UNSPECIFIED (4) Acute on chronic respiratory failure with hypoxia and hypercapnia Code(s): J96.21 - ACUTE AND CHRONIC RESPIRATORY FAILURE WITH HYPOXIA; J96.22 - ACUTE AND CHRONIC RESPIRATORY FAILURE WITH HYPERCAPNIA (5) Acute renal failure Code(s): N17.9 - ACUTE KIDNEY FAILURE, UNSPECIFIED (6) Back spasm Code(s): M62.830 - MUSCLE SPASM OF BACK (7) Diabetes Code(s): E11.9 - TYPE 2 DIABETES MELLITUS WITHOUT COMPLICATIONS (8) Diastolic CHF Code(s): I50.30 - UNSPECIFIED DIASTOLIC (CONGESTIVE) HEART FAILURE (9) Elevated CK Code(s): R74.8 - ABNORMAL LEVELS OF OTHER SERUM ENZYMES (10) Elevated troponin I level Code(s): R74.8 - ABNORMAL LEVELS OF OTHER SERUM ENZYMES (11) Hyperkalemia Code(s): E87.5 - HYPERKALEMIA (12) Hyperlipidemia Code(s): E78.5 - HYPERLIPIDEMIA, UNSPECIFIED (13) Hypertension Code(s): I10 - ESSENTIAL (PRIMARY) HYPERTENSION Qualifiers: Hypertension type: unspecified Qualified Code(s): I10 - Essential (primary ) hypertension (14) Kidney failure Code(s): N19 - UNSPECIFIED KIDNEY FAILURE (15) Kidney stone Code(s): N20.0 - CALCULUS OF KIDNEY (16) Morbid exogenous obesity Code(s): E66.01 - MORBID (SEVERE) OBESITY DUE TO EXCESS CALORIES (17) Morbid obesity Code(s): E66.01 - MORBID (SEVERE) OBESITY DUE TO EXCESS CALORIES (18) Obesity hypoventilation syndrome Code(s): E66.2 - MORBID (SEVERE) OBESITY WITH ALVEOLAR HYPOVENTILATION (19) Pulmonary HTN Code(s): I27.2 - OTHER SECONDARY PULMONARY HYPERTENSION * DO NOT USE * (20) Renal insufficiency Code(s): N28.9 - DISORDER OF KIDNEY AND URETER, UNSPECIFIED (21) Respiratory distress Code(s): R06.00 - DYSPNEA, UNSPECIFIED (22) Shortness of breath Code(s): R06.02 - SHORTNESS OF BREATH (23) Sleep apnea Code(s): G47.30 - SLEEP APNEA, UNSPECIFIED (24) Syncope Code(s): R55 - SYNCOPE AND COLLAPSE (25) Tachycardia Code(s): R00.0 - TACHYCARDIA, UNSPECIFIED (26) UTI (urinary tract infection) Code(s): N39.0 - URINARY TRACT INFECTION, SITE NOT SPECIFIED (27) Viral syndrome Code(s): B34.9 - VIRAL INFECTION, UNSPECIFIED Assessment/Plan - Problems (1) Acute on chronic kidney failure Assessment/Plan: On fruosemide and metolazone. f/u with circulation assistant. Code(s): N17.9 - ACUTE KIDNEY FAILURE, UNSPECIFIED; N18.9 - CHRONIC KIDNEY DISEASE, UNSPECIFIED (2) COPD exacerbation Assessment/Plan: f/u with de icer element winder. Code(s): J44.1 - CHRONIC OBSTRUCTIVE PULMONARY DISEASE W (ACUTE) EXACERBATION (3) Acute on chronic respiratory failure with hypoxia and hypercapnia Assessment/Plan: Steroids, bronchodilators, O2, Bipap, antibiotics per de icer element winder. Code(s): J96.21 - ACUTE AND CHRONIC RESPIRATORY FAILURE WITH HYPOXIA; J96.22 - ACUTE AND CHRONIC RESPIRATORY FAILURE WITH HYPERCAPNIA (4) Diastolic CHF Assessment/Plan: On nifedipine XL, hydrlazine, furosemide, and metolazone; Imdur added. (Recommend eventually discontinuing nifedipine: risks of edema, heart failure). Hydralazine may also contribute to edema. ECHO: normal LVEF: abnormal diastolic compliance; RV dilatation and reduced RVEF ; evidence of fluid overload (flattened ventricular septum). F/u BUN/Cr, electrolytes, daily weight, Is and Os. Code(s): I50.30 - UNSPECIFIED DIASTOLIC (CONGESTIVE) HEART FAILURE (5) Renal insufficiency Code(s): N28.9 - DISORDER OF KIDNEY AND URETER, UNSPECIFIED (6) Respiratory distress Code(s): R06.00 - DYSPNEA, UNSPECIFIED (7) Sleep apnea Code(s): G47.30 - SLEEP APNEA, UNSPECIFIED (8) Morbid obesity Assessment/Plan: Pt has had discussions in the past regarding gastric bypass surgery. See under "depression". Code(s): E66.01 - MORBID (SEVERE) OBESITY DUE TO EXCESS CALORIES (9) Aortic root dilatation Assessment/Plan: Mild dilatation by ECHO this visit. F/u prior studies for comparison. CTA problematic due to renal dysfunction. Code(s): I77.810 - THORACIC AORTIC ECTASIA (10) Knee pain Assessment/Plan: bilateral knee pain; hx bilateral arthroscopic surgery. Code(s): M25.569 - PAIN IN UNSPECIFIED KNEE (11) Depression Assessment/Plan: Pt's former work associate, who says she is Lupillo's "substitute mother"(his biological mother a few months ago), says he has had periods of severe depression for many years. A few years ago, he had to be admitted to [facility] psychiatric floor. He has talked of committing suicde in the past. When his sister a few years ago, and upon his mother's , he gained abou 100 lbs within amonth each time. She says he "loves starches"; while confined at home, he calls out constantly for fast food in large portions. She took him to gastric bypass surgeon at [facility]; Cindy was considered at high risk for surgery. F/u with psychologist/psychiatrist. f/u with community outreach director. Code(s): F32.9 - MAJOR DEPRESSIVE DISORDER, SINGLE EPISODE, UNSPECIFIED (12) Atypical chest pain Assessment/Plan: No further chest pain x 72 hrs. TNI 0.03. No arrhythymias. D/jing IV heparin. (Pt says he had a catheterization of the heart a few years ago at this hospital he believes was for the coronary arteries. 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 Code(s): R07.89 - OTHER CHEST PAIN
[2018-08-28] MEDS: predniSONE 20 MG TABLET (UD) PO SCH (09:44)
[2018-08-28] MEDS: ISOSORBIDE MONONITRATE 30 MG TAB.SR.24H (FP) PO SCH (09:44)
[2018-08-28] MEDS: METOLAZONE 5 MG TABLET PO SCH (09:44)
[2018-08-28] MEDS: TAMSULOSIN HCL 0.4 MG CAP PO SCH (09:45)
[2018-08-28] MEDS: LOSARTAN POTASSIUM 50 MG TABLET (FP) PO SCH (09:45)
[2018-08-28] MEDS: ASPIRIN 81 MG CHEWABLE TABLETS PO SCH (09:45)
[2018-08-28] MEDS: BUDESONIDE/FORMETEROL FUMARATE 160/4.5 mcg INHALER IH SCH ×2 (09:46→22:23)
[2018-08-28] MEDS: TETRACAINE/BENZOCAINE/BUTAMBEN 20 GM SPR TP SCH (09:46)
[2018-08-28] MEDS: NIFEdipine E.R. 90 MG TABLET (FP) PO SCH (09:47)
[2018-08-28] MEDS ORDERED: INSULIN (NOVOLOG) ASPART 100 UNITS/ML 10ML VIAL ONE ×4 (11:07→16:54)
--- NOTE | 2018-08-28 12:13 | PN ---
Progress Note, Physician History of Present Illness: Pt seen and examined at bedside. He had an episode of chest pain last night. - Current Medication List Current Medications: Active Medications Aspirin (Asa -) 81 mg PO DAILY [facility] Last Admin: 08/28/18 09:45 Dose: 81 mg Benzocaine/Butamben/Tetracaine HCl (Cetacaine [place] -) 1 spray TP DAILY [facility] Last Admin: 08/28/18 09:46 Dose: Not Given Budesonide/Formoterol Fumarate (Symbicort 160/4.5mcg -) 1 puff IH BID [facility] Last Admin: 08/28/18 09:46 Dose: 1 puff Docusate Sodium (Colace -) 100 mg PO TID [facility] Last Admin: 08/28/18 06:23 Dose: Not Given Ferrous Sulfate (Feosol -) 325 mg PO TID [facility] Last Admin: 08/28/18 06:22 Dose: 325 mg Furosemide (Lasix Injection -) 60 mg IVPUSH BID@0600,1400 [facility] Last Admin: 08/28/18 06:22 Dose: 60 mg Gabapentin (Neurontin -) 300 mg PO TID [facility] Last Admin: 08/28/18 06:22 Dose: 300 mg Heparin Sodium (Porcine) (Heparin -) 5,000 unit SQ TID [facility] Last Admin: 08/28/18 06:22 Dose: 5,000 unit Hydralazine HCl (Apresoline -) 100 mg PO TID [facility] Last Admin: 08/28/18 06:22 Dose: 100 mg Insulin Aspart (Novolog Mix 70/30 Vial) 40 units SQ BIDAC [facility] Last Admin: 08/28/18 06:39 Dose: Not Given Insulin Aspart (Novolog Vial Sliding Scale -) 1 vial SQ [facility]; Protocol Last Admin: 08/28/18 11:19 Dose: 8 units Insulin Detemir (Levemir Vial) 25 units SQ HS [facility] Last Admin: 08/27/18 22:59 Dose: 25 units Isosorbide Mononitrate (Imdur -) 60 mg PO DAILY [facility] Last Admin: 08/28/18 09:44 Dose: 60 mg Losartan Potassium (Cozaar -) 50 mg PO DAILY [facility] Last Admin: 08/28/18 09:45 Dose: 50 mg Metolazone (Zaroxolyn -) 5 mg PO DAILY [facility] Last Admin: 08/28/18 09:44 Dose: 5 mg Nifedipine (Procardia Xl -) 90 mg PO DAILY [facility] Last Admin: 08/28/18 09:47 Dose: 90 mg Prednisone (Deltasone -) 20 mg PO DAILY [facility] Last Admin: 08/28/18 09:44 Dose: 20 mg Rosuvastatin Calcium (Crestor -) 5 mg PO HS [facility] Last Admin: 08/27/18 22:59 Dose: 5 mg Senna (Senna -) 2 tab PO HS PRN PRN Reason: CONSTIPATION Tamsulosin HCl (Flomax -) 0.4 mg PO DAILY@0830 [facility] Last Admin: 08/28/18 09:45 Dose: 0.4 mg - Objective Vital Signs: Vital Signs Temperature 97.7 F 08/28/18 06:00 Pulse Rate 84 08/28/18 06:00 Respiratory Rate 20 08/28/18 06:00 Blood Pressure 122/70 08/28/18 06:00 O2 Sat by Pulse Oximetry (%) 95 08/28/18 00:59 Constitutional: Yes: Calm Eyes: Yes: Conjunctiva Clear HENT: Yes: Atraumatic Neck: Yes: Supple Cardiovascular: Yes: S1, S2 Respiratory: Yes: On Nasal O2 Gastrointestinal: Yes: Soft, Abdomen, Obese Genitourinary: Yes: WNL Musculoskeletal: Yes: WNL Edema: Yes Edema: LLE: 1+, RLE: 1+ Neurological: Yes: Oriented Psychiatric: Yes: Oriented Labs: CBC, BMP 08/28/18 05:53 08/28/18 05:53 INR, PTT INR 1.10 (0.83-1.09) H 08/12/18 21:00 Problem List - Problems (1) CKD (chronic kidney disease) Code(s): N18.9 - CHRONIC KIDNEY DISEASE, UNSPECIFIED (2) COPD exacerbation Code(s): J44.1 - CHRONIC OBSTRUCTIVE PULMONARY DISEASE W (ACUTE) EXACERBATION (3) Acute exacerbation of CHF (congestive heart failure) Code(s): I50.9 - HEART FAILURE, UNSPECIFIED Assessment/Plan Current Medications Generic Name Dose Route Start Last Admin Trade Name Freq PRN Reason Stop Dose Admin Aspirin 81 mg 08/13/18 10:00 08/28/18 09:45 Asa - PO 81 mg DAILY [facility] Administration Benzocaine/Butamben/Tetracaine HCl 1 spray 08/21/18 13:00 08/28/18 09:46 Cetacaine [place] - TP Not Given DAILY [facility] Budesonide/Formoterol Fumarate 1 puff 08/13/18 10:00 08/28/18 09:46 Symbicort 160/4.5mcg - IH 1 puff BID [facility] Administration Docusate Sodium 100 mg 08/27/18 14:00 08/28/18 06:23 Colace - PO Not Given TID [facility] Ferrous Sulfate 325 mg 08/13/18 06:00 08/28/18 06:22 Feosol - PO 325 mg TID [facility] Administration Furosemide 60 mg 08/17/18 14:00 08/28/18 06:22 Lasix Injection - IVPUSH 60 mg BID@0600,1400 [facility] Administration Gabapentin 300 mg 08/13/18 06:00 08/28/18 06:22 Neurontin - PO 300 mg TID [facility] Administration Heparin Sodium (Porcine) 5,000 unit 08/27/18 22:00 08/28/18 06:22 Heparin - SQ 5,000 unit TID [facility] Administration Hydralazine HCl 100 mg 08/19/18 22:00 08/28/18 06:22 Apresoline - PO 100 mg TID [facility] Administration Insulin Aspart 40 units 08/18/18 22:49 08/28/18 06:39 Novolog Mix 70/30 Vial SQ Not Given BIDAC [facility] Insulin Aspart 1 vial 08/21/18 18:39 08/28/18 11:19 Novolog Vial Sliding Scale - SQ 8 units ACHS [facility] Administration Protocol Insulin Detemir 25 units 08/18/18 22:50 08/27/18 22:59 Levemir Vial SQ 25 units HS [facility] Administration Isosorbide Mononitrate 60 mg 08/21/18 10:00 08/28/18 09:44 Imdur - PO 60 mg DAILY [facility] Administration Losartan Potassium 50 mg 08/27/18 10:00 08/28/18 09:45 Cozaar - PO 50 mg DAILY [facility] Administration Metolazone 5 mg 08/21/18 13:30 08/28/18 09:44 Zaroxolyn - PO 5 mg DAILY [facility] Administration Nifedipine 90 mg 08/13/18 10:00 08/28/18 09:47 Procardia Xl - PO 90 mg DAILY [facility] Administration Prednisone 20 mg 08/27/18 10:00 08/28/18 09:44 Deltasone - PO 20 mg DAILY [facility] Administration Rosuvastatin Calcium 5 mg 08/13/18 22:00 08/27/18 22:59 Crestor - PO 5 mg HS [facility] Administration Senna 2 tab 08/26/18 14:22 Senna - PO HS PRN CONSTIPATION Tamsulosin HCl 0.4 mg 08/13/18 08:30 08/28/18 09:45 Flomax - PO 0.4 mg DAILY@0830 [facility] Administration Impression 1. CKD 2. dyspnea 3. morbid obesity 4. DM 5. HTN 6. likely sleep apnea 7. chest pain 8. hyperkalemia Plan - change lasix to PO - cont metolazone - taper down steroids as they can contribute to elevated BUN - monitor volume status - cardio follow up for chest pain - cont senna and colace - avoid constipation - recommend weight loss - cont losartan
--- NOTE | 2018-08-28 13:51 | PN ---
Progress Note (short form) - Note Progress Note: PULMONARY States breathing is better. No chest pain, cough or wheezing. Vital Signs Period Temp Pulse Resp BP Sys/Watson Pulse Ox Last 24 Hr 97.7 F-98.7 F 84-98 20-22 122-163/63-107 92-95 Gen: NAD in chair Heart: RRR Lung: decreased breath sounds at the bases Abd: soft, nontender Ext: + edema CBC, BMP 08/28/18 05:53 08/28/18 05:53 Active Medications Aspirin (Asa -) 81 mg PO DAILY [facility] Last Admin: 08/28/18 09:45 Dose: 81 mg Benzocaine/Butamben/Tetracaine HCl (Cetacaine [place] -) 1 spray TP DAILY [facility] Last Admin: 08/28/18 09:46 Dose: Not Given Budesonide/Formoterol Fumarate (Symbicort 160/4.5mcg -) 1 puff IH BID [facility] Last Admin: 08/28/18 09:46 Dose: 1 puff Docusate Sodium (Colace -) 100 mg PO TID [facility] Last Admin: 08/28/18 06:23 Dose: Not Given Ferrous Sulfate (Feosol -) 325 mg PO TID [facility] Last Admin: 08/28/18 06:22 Dose: 325 mg Furosemide (Lasix -) 80 mg PO BID@0600,1400 [facility] Gabapentin (Neurontin -) 300 mg PO TID [facility] Last Admin: 08/28/18 06:22 Dose: 300 mg Heparin Sodium (Porcine) (Heparin -) 5,000 unit SQ TID [facility] Last Admin: 08/28/18 06:22 Dose: 5,000 unit Hydralazine HCl (Apresoline -) 100 mg PO TID [facility] Last Admin: 08/28/18 06:22 Dose: 100 mg Insulin Aspart (Novolog Mix 70/30 Vial) 40 units SQ BIDAC [facility] Last Admin: 08/28/18 06:39 Dose: Not Given Insulin Aspart (Novolog Vial Sliding Scale -) 1 vial SQ ACHS [facility]; Protocol Last Admin: 08/28/18 11:19 Dose: 8 units Insulin Detemir (Levemir Vial) 25 units SQ HS [facility] Last Admin: 08/27/18 22:59 Dose: 25 units Isosorbide Mononitrate (Imdur -) 60 mg PO DAILY [facility] Last Admin: 08/28/18 09:44 Dose: 60 mg Losartan Potassium (Cozaar -) 50 mg PO DAILY [facility] Last Admin: 08/28/18 09:45 Dose: 50 mg Metolazone (Zaroxolyn -) 5 mg PO DAILY [facility] Last Admin: 08/28/18 09:44 Dose: 5 mg Nifedipine (Procardia Xl -) 90 mg PO DAILY [facility] Last Admin: 08/28/18 09:47 Dose: 90 mg Prednisone (Deltasone -) 10 mg PO DAILY [facility] Rosuvastatin Calcium (Crestor -) 5 mg PO HS [facility] Last Admin: 08/27/18 22:59 Dose: 5 mg Senna (Senna -) 2 tab PO HS PRN PRN Reason: CONSTIPATION Tamsulosin HCl (Flomax -) 0.4 mg PO DAILY@0830 [facility] Last Admin: 08/28/18 09:45 Dose: 0.4 mg A/P Acute on Chronic Hypoxic and Hypercapneic Respiratory Failure improving Acute COPD Exacerbation Acute on Chronic Diastolic Heart Failure Pulmonary HTN Morbid Obesity TATI/OHS HTN DM CKD - taper off prednisone - inhaled bronchodilators - O2 to keep Spo2 >90% - BiPAP at night and PRN during day - continue lasix - monitor urine output, creatinine - DVT prophylaxis - d/c planning
[2018-08-28] MEDS: FUROSEMIDE 40 MG TABLET (FP) PO SCH (14:09)
[2018-08-28] MEDS: predniSONE 10 MG TABLET (UD) PO SCH (14:09)
--- NOTE | 2018-08-28 17:02 | EKG ---
Test Reason : Blood Pressure : / mmHG Vent. Rate : 083 BPM Atrial Rate : 083 BPM P-R Int : 186 ms QRS Dur : 082 ms QT Int : 396 ms P-R-T Axes : 051 009 036 degrees QTc Int : 465 ms NORMAL SINUS RHYTHM NORMAL ECG WHEN COMPARED WITH ECG OF 23-AUG-2018 12:08, NO SIGNIFICANT CHANGE WAS FOUND Confirmed by MANNY REBOLLAR MD ([id number]) on 08/28/2018 5:02:00 PM Referred By: Confirmed By:MANNY REBOLLAR MD
[2018-08-28] MEDS ORDERED: INSULIN (NOVOLOG MIX 70/30) 100 UNITS/ML MDV SQ ONE (17:51)
[2018-08-28] MEDS: ROSUVASTATIN CA 5 MG TABLET (FP) PO SCH (22:22)
[2018-08-28] MEDS: INSULIN (LEVEMIR) 100 UNITS/ML UNITS SQ SCH (22:23)
--- NOTE | 2018-08-28 23:49 | PN ---
Progress Note (short form) - Note Progress Note: covering for DR Nixon patient seen and examined in his bed morbidly obese male sitting in bed / NAD nurse reports patient with episode of chest pain last night pain reported as across his chest / no diaphoresis /sob /nausea or vomiting no further episodes of CP Vital Signs Period Temp Pulse Resp BP Sys/Watson Pulse Ox Last 24 Hr 97.7 F-99.2 F 84-94 20-24 120-163/48-99 94-95 heart S1/S2 lungs clear bilat abd obese ext edema CBC, BMP 08/28/18 05:53 08/28/18 05:53 Microbiology 08/21/18 14:10 Blood - Peripheral Venous Blood Culture - Final NO GROWTH AFTER 5 DAYS INCUBATION 08/21/18 14:05 Blood - Peripheral Venous Blood Culture - Final NO GROWTH AFTER 5 DAYS INCUBATION 08/21/18 15:20 Urine - Urine Clean Catch Urine Culture - Final NO GROWTH OBTAINED Active Medications Aspirin (Asa -) 81 mg PO DAILY [facility] Last Admin: 08/28/18 09:45 Dose: 81 mg Benzocaine/Butamben/Tetracaine HCl (Cetacaine [place] -) 1 spray TP DAILY [facility] Last Admin: 08/28/18 09:46 Dose: Not Given Budesonide/Formoterol Fumarate (Symbicort 160/4.5mcg -) 1 puff IH BID [facility] Last Admin: 08/28/18 22:23 Dose: 1 puff Docusate Sodium (Colace -) 100 mg PO TID [facility] Last Admin: 08/28/18 22:21 Dose: 100 mg Ferrous Sulfate (Feosol -) 325 mg PO TID [facility] Last Admin: 08/28/18 22:22 Dose: 325 mg Furosemide (Lasix -) 80 mg PO BID@0600,1400 [facility] Last Admin: 08/28/18 14:09 Dose: 80 mg Gabapentin (Neurontin -) 300 mg PO TID [facility] Last Admin: 08/28/18 22:22 Dose: 300 mg Heparin Sodium (Porcine) (Heparin -) 5,000 unit SQ TID [facility] Last Admin: 08/28/18 22:21 Dose: 5,000 unit Hydralazine HCl (Apresoline -) 100 mg PO TID [facility] Last Admin: 08/28/18 22:21 Dose: 100 mg Insulin Aspart ([facility] 70[facility]30 Vial) [facility] Admin: 08/28/18 17:24 Dose: 40 units Insulin Aspart (Novolog Vial Sliding Scale -) 1 vial SQ [facility]; Protocol Last Admin: 08/28/18 22:22 Dose: 8 units Insulin Detemir (Levemir Vial) 25 units SQ HS [facility] Last Admin: 08/28/18 22:23 Dose: 25 units Isosorbide Mononitrate (Imdur -) 60 mg PO DAILY [facility] Last Admin: 08/28/18 09:44 Dose: 60 mg Losartan Potassium (Cozaar -) 50 mg PO DAILY [facility] Last Admin: 08/28/18 09:45 Dose: 50 mg Metolazone (Zaroxolyn -) 5 mg PO DAILY [facility] Last Admin: 08/28/18 09:44 Dose: 5 mg Nifedipine (Procardia Xl -) 90 mg PO DAILY [facility] Last Admin: 08/28/18 09:47 Dose: 90 mg Prednisone (Deltasone -) 10 mg PO DAILY [facility] Last Admin: 08/28/18 14:09 Dose: 10 mg Rosuvastatin Calcium (Crestor -) 5 mg PO HS [facility] Last Admin: 08/28/18 22:22 Dose: 5 mg Senna (Senna -) 2 tab PO HS PRN PRN Reason: CONSTIPATION Tamsulosin HCl (Flomax -) 0.4 mg PO DAILY@0830 [facility] Last Admin: 08/28/18 09:45 Dose: 0.4 mg A/P atypical chest pain Morbid obesity / TATI Acute on Chronic Hypoxic and Hypercapneic Respiratory Failure improving Acute COPD Exacerbation / pHTN / Acute on Chronic Diastolic Heart Failure HTN DM CKD - taper off prednisone - inhaled bronchodilators - O2 to keep Spo2 >90% - BiPAP at night and PRN during day - continue lasix - monitor urine output, creatinine - DVT prophylaxis - d/c planning awaiting STR CBC, BMP 08/28/18 05:53 08/28/18 05:53
[2018-08-29] MEDS: hydrALAZINE HCL 50 MG TABLET (FP) PO SCH ×3 (06:25→22:01)
[2018-08-29] MEDS: DOCUSATE SODIUM 100 MG CAPSULE (FP) PO SCH ×3 (06:25→22:01)
[2018-08-29] MEDS: FERROUS SO4 325 MG TABLET (FP) PO SCH ×3 (06:25→22:01)
[2018-08-29] MEDS: GABAPENTIN 300 MG CAPSULE (FP) PO SCH ×3 (06:27→22:01)
[2018-08-29] MEDS: HEPARIN NA (PORCINE) 5,000 UNITS/ML 1ML VIAL SQ SCH ×3 (06:27→22:02)
[2018-08-29] MEDS: FUROSEMIDE 40 MG TABLET (FP) PO SCH (06:29)
[2018-08-29] MEDS: INSULIN SLIDING SCALE (NOVOLOG) 1 VIAL SQ SCH ×4 (06:30→22:03)
[2018-08-29] MEDS: INSULIN (NOVOLOG MIX 70/30) 100 UNITS/ML MDV SQ SCH ×2 (06:44→17:38)
[2018-08-29 07:19] LABS: HEMATOCRIT 36.7 % (35.4-49); HEMOGLOBIN 11.3 GM/dL (11.7-16.9); MCHC 30.8 g/dl (32.0-35.9); MEAN CELL VOLUME 91.1 fl (80-96); MEAN PLT VOLUME 9.2 fl (7.5-11.1); RBC 4.03 M/mm3 (4.00-5.60); RDW 18.2 % (11.9-15.9); WHITE BLOOD COUNT 11.2 K/mm3 (4.0-10.0)
[2018-08-29 07:48] LABS: ALBUMIN 3.1 g/dl (3.4-5.0); BILIRUBIN,TOTAL 1.1 mg/dL (0.2-1); CALCIUM 8.7 mg/dL (8.5-10.1); CREATININE 3.2 mg/dL (0.55-1.3); POTASSIUM 4.3 mmol/L (3.5-5.1); TOT PROT 6.2 g/dl (6.4-8.2)
[2018-08-29 07:50] LABS: BLOOD UREA NITROGEN 114.1 mg/dL (7-18)
--- NOTE | 2018-08-29 08:55 | PN ---
Progress Note, Physician History of Present Illness: The patient is a 47-year-old male with a past medical history significant for morbid obesity, DM, HTN, HLD, COPD (on home O2, recently increased from 2L to 4L by PCP) presents to the emergency department with chest pain, SOB and a cough. The patient presents with shortness of breath, chest pain, and productive cough with greyish-white sputum production, with mild hemoptysis. The patient reports the chest pain is sharp and pleuritic in quality, with a severity of 6/10. The patient reports the pain presented while at rest, now aggravated with exertion. The patient reports hes been noncompliant with breathing treatments secondary to problems with the machine. Denies recent travel. Denies hx of blood clots. Patient reports a history of lymphedema, with increased leg swelling. 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 Allergies: NKDA PCP: Dr. Sukumar Ortiz. - Current Medication List Current Medications: Active Medications Aspirin (Asa -) 81 mg PO DAILY [facility] Last Admin: 08/28/18 09:45 Dose: 81 mg Benzocaine/Butamben/Tetracaine HCl (Cetacaine [place] -) 1 spray TP DAILY [facility] Last Admin: 08/28/18 09:46 Dose: Not Given Budesonide/Formoterol Fumarate (Symbicort 160/4.5mcg -) 1 puff IH BID [facility] Last Admin: 08/28/18 22:23 Dose: 1 puff Docusate Sodium (Colace -) 100 mg PO TID [facility] Last Admin: 08/29/18 06:25 Dose: 100 mg Ferrous Sulfate (Feosol -) 325 mg PO TID [facility] Last Admin: 08/29/18 06:25 Dose: 325 mg Furosemide (Lasix -) 80 mg PO BID@0600,1400 [facility] Last Admin: 08/29/18 06:29 Dose: 80 mg Gabapentin (Neurontin -) 300 mg PO TID [facility] Last Admin: 08/29/18 06:27 Dose: 300 mg Heparin Sodium (Porcine) (Heparin -) 5,000 unit SQ TID [facility] Last Admin: 08/29/18 06:27 Dose: 5,000 unit Hydralazine HCl (Apresoline -) 100 mg PO TID [facility] Last Admin: 08/29/18 06:25 Dose: 100 mg Insulin Aspart (Novolog Mix 70/30 Vial) 40 units SQ BIDAC [facility] Last Admin: 08/29/18 06:44 Dose: 40 units Insulin Aspart (Novolog Vial Sliding Scale -) 1 vial SQ ACHS [facility]; Protocol Last Admin: 08/29/18 06:30 Dose: Not Given Insulin Detemir (Levemir Vial) 25 units SQ HS [facility] Last Admin: 08/28/18 22:23 Dose: 25 units Isosorbide Mononitrate (Imdur -) 60 mg PO DAILY [facility] Last Admin: 08/28/18 09:44 Dose: 60 mg Losartan Potassium (Cozaar -) 50 mg PO DAILY [facility] Last Admin: 08/28/18 09:45 Dose: 50 mg Metolazone (Zaroxolyn -) 5 mg PO DAILY [facility] Last Admin: 08/28/18 09:44 Dose: 5 mg Nifedipine (Procardia Xl -) 90 mg PO DAILY [facility] Last Admin: 08/28/18 09:47 Dose: 90 mg Prednisone (Deltasone -) 10 mg PO DAILY [facility] Last Admin: 08/28/18 14:09 Dose: 10 mg Rosuvastatin Calcium (Crestor -) 5 mg PO HS [facility] Last Admin: 08/28/18 22:22 Dose: 5 mg Senna (Senna -) 2 tab PO HS PRN PRN Reason: CONSTIPATION Tamsulosin HCl (Flomax -) 0.4 mg PO DAILY@0830 [facility] Last Admin: 08/28/18 09:45 Dose: 0.4 mg - Objective Vital Signs: Vital Signs Temperature 98.1 F 08/29/18 05:00 Pulse Rate 85 08/29/18 05:00 Respiratory Rate 20 08/29/18 05:00 Blood Pressure 127/77 08/29/18 05:00 O2 Sat by Pulse Oximetry (%) 97 08/29/18 08:35 Eyes: Yes: WNL, Conjunctiva Clear, EOM Intact HENT: Yes: WNL, Atraumatic, Normocephalic Neck: Yes: WNL, Supple, Trachea Midline Cardiovascular: Yes: WNL, Regular Rate and Rhythm Respiratory: Yes: WNL, Regular, CTA Bilaterally Gastrointestinal: Yes: WNL, Normal Bowel Sounds Genitourinary: Yes: WNL Musculoskeletal: Yes: WNL Extremities: Yes: WNL Edema: Yes Integumentary: Yes: WNL Neurological: Yes: WNL, Alert, Oriented ...Motor Strength: WNL Psychiatric: Yes: WNL Labs: CBC, BMP 08/29/18 05:59 08/29/18 05:59 INR, PTT INR 1.10 (0.83-1.09) H 08/12/18 21:00 Problem List - Problems (1) COPD exacerbation Code(s): J44.1 - CHRONIC OBSTRUCTIVE PULMONARY DISEASE W (ACUTE) EXACERBATION (2) Chest pain Code(s): R07.9 - CHEST PAIN, UNSPECIFIED (3) Acute exacerbation of CHF (congestive heart failure) Code(s): I50.9 - HEART FAILURE, UNSPECIFIED (4) Acute on chronic respiratory failure with hypoxia and hypercapnia Code(s): J96.21 - ACUTE AND CHRONIC RESPIRATORY FAILURE WITH HYPOXIA; J96.22 - ACUTE AND CHRONIC RESPIRATORY FAILURE WITH HYPERCAPNIA (5) Acute renal failure Code(s): N17.9 - ACUTE KIDNEY FAILURE, UNSPECIFIED (6) Back spasm Code(s): M62.830 - MUSCLE SPASM OF BACK (7) Diabetes Code(s): E11.9 - TYPE 2 DIABETES MELLITUS WITHOUT COMPLICATIONS (8) Diastolic CHF Code(s): I50.30 - UNSPECIFIED DIASTOLIC (CONGESTIVE) HEART FAILURE (9) Elevated CK Code(s): R74.8 - ABNORMAL LEVELS OF OTHER SERUM ENZYMES (10) Elevated troponin I level Code(s): R74.8 - ABNORMAL LEVELS OF OTHER SERUM ENZYMES (11) Hyperkalemia Code(s): E87.5 - HYPERKALEMIA (12) Hyperlipidemia Code(s): E78.5 - HYPERLIPIDEMIA, UNSPECIFIED (13) Hypertension Code(s): I10 - ESSENTIAL (PRIMARY) HYPERTENSION Qualifiers: Hypertension type: unspecified Qualified Code(s): I10 - Essential (primary ) hypertension (14) Kidney failure Code(s): N19 - UNSPECIFIED KIDNEY FAILURE (15) Kidney stone Code(s): N20.0 - CALCULUS OF KIDNEY (16) Morbid exogenous obesity Code(s): E66.01 - MORBID (SEVERE) OBESITY DUE TO EXCESS CALORIES (17) Morbid obesity Code(s): E66.01 - MORBID (SEVERE) OBESITY DUE TO EXCESS CALORIES (18) Obesity hypoventilation syndrome Code(s): E66.2 - MORBID (SEVERE) OBESITY WITH ALVEOLAR HYPOVENTILATION (19) Pulmonary HTN Code(s): I27.2 - OTHER SECONDARY PULMONARY HYPERTENSION * DO NOT USE * (20) Renal insufficiency Code(s): N28.9 - DISORDER OF KIDNEY AND URETER, UNSPECIFIED (21) Respiratory distress Code(s): R06.00 - DYSPNEA, UNSPECIFIED (22) Shortness of breath Code(s): R06.02 - SHORTNESS OF BREATH (23) Sleep apnea Code(s): G47.30 - SLEEP APNEA, UNSPECIFIED (24) Syncope Code(s): R55 - SYNCOPE AND COLLAPSE (25) Tachycardia Code(s): R00.0 - TACHYCARDIA, UNSPECIFIED (26) UTI (urinary tract infection) Code(s): N39.0 - URINARY TRACT INFECTION, SITE NOT SPECIFIED (27) Viral syndrome Code(s): B34.9 - VIRAL INFECTION, UNSPECIFIED Assessment/Plan - Problems (1) Acute on chronic kidney failure Assessment/Plan: On fruosemide and metolazone. f/u with linotype machinist apprentice. Code(s): N17.9 - ACUTE KIDNEY FAILURE, UNSPECIFIED; N18.9 - CHRONIC KIDNEY DISEASE, UNSPECIFIED (2) COPD exacerbation Assessment/Plan: f/u with director adult. Code(s): J44.1 - CHRONIC OBSTRUCTIVE PULMONARY DISEASE W (ACUTE) EXACERBATION (3) Acute on chronic respiratory failure with hypoxia and hypercapnia Assessment/Plan: Steroids, bronchodilators, O2, Bipap, antibiotics per director adult. Code(s): J96.21 - ACUTE AND CHRONIC RESPIRATORY FAILURE WITH HYPOXIA; J96.22 - ACUTE AND CHRONIC RESPIRATORY FAILURE WITH HYPERCAPNIA (4) Diastolic CHF Assessment/Plan: On nifedipine XL, hydrlazine, furosemide, and metolazone; Imdur added. (Recommend eventually discontinuing nifedipine: risks of edema, heart failure). Hydralazine may also contribute to edema. ECHO: normal LVEF: abnormal diastolic compliance; RV dilatation and reduced RVEF ; evidence of fluid overload (flattened ventricular septum). F/u BUN/Cr, electrolytes, daily weight, Is and Os. Code(s): I50.30 - UNSPECIFIED DIASTOLIC (CONGESTIVE) HEART FAILURE (5) Renal insufficiency Code(s): N28.9 - DISORDER OF KIDNEY AND URETER, UNSPECIFIED (6) Respiratory distress Code(s): R06.00 - DYSPNEA, UNSPECIFIED (7) Sleep apnea Code(s): G47.30 - SLEEP APNEA, UNSPECIFIED (8) Morbid obesity Assessment/Plan: Pt has had discussions in the past regarding gastric bypass surgery. See under "depression". Code(s): E66.01 - MORBID (SEVERE) OBESITY DUE TO EXCESS CALORIES (9) Aortic root dilatation Assessment/Plan: Mild dilatation by ECHO this visit. F/u prior studies for comparison. CTA problematic due to renal dysfunction. Code(s): I77.810 - THORACIC AORTIC ECTASIA (10) Knee pain Assessment/Plan: bilateral knee pain; hx bilateral arthroscopic surgery. Code(s): M25.569 - PAIN IN UNSPECIFIED KNEE (11) Depression Assessment/Plan: Pt's former work associate, who says she is Lupillo's "substitute mother"(his biological mother a few months ago), says he has had periods of severe depression for many years. A few years ago, he had to be admitted to [facility] psychiatric floor. He has talked of committing suicde in the past. When his sister a few years ago, and upon his mother's , he gained abou 100 lbs within amonth each time. She says he "loves starches"; while confined at home, he calls out constantly for fast food in large portions. She took him to gastric bypass surgeon at [facility]; Cindy was considered at high risk for surgery. F/u with psychologist/psychiatrist. f/u with packaging supervisor. Code(s): F32.9 - MAJOR DEPRESSIVE DISORDER, SINGLE EPISODE, UNSPECIFIED (12) Atypical chest pain Assessment/Plan: No further chest pain No arrhythymias. off IV heparin cont ASA (Pt says he had a catheterization of the heart a few years ago at this hospital he believes was for the coronary arteries. 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
[2018-08-29] MEDS: TAMSULOSIN HCL 0.4 MG CAP PO SCH (09:00)
[2018-08-29] MEDS: predniSONE 10 MG TABLET (UD) PO SCH (10:15)
[2018-08-29] MEDS: LOSARTAN POTASSIUM 50 MG TABLET (FP) PO SCH (10:15)
[2018-08-29] MEDS: METOLAZONE 5 MG TABLET PO SCH (10:15)
[2018-08-29] MEDS: ASPIRIN 81 MG CHEWABLE TABLETS PO SCH (10:15)
[2018-08-29] MEDS: TETRACAINE/BENZOCAINE/BUTAMBEN 20 GM SPR TP SCH (10:15)
[2018-08-29] MEDS: ISOSORBIDE MONONITRATE 30 MG TAB.SR.24H (FP) PO SCH (10:15)
[2018-08-29] MEDS: NIFEdipine E.R. 90 MG TABLET (FP) PO SCH (10:15)
[2018-08-29] MEDS: BUDESONIDE/FORMETEROL FUMARATE 160/4.5 mcg INHALER IH SCH ×2 (10:16→22:03)
--- NOTE | 2018-08-29 12:31 | PN ---
Progress Note, Physician History of Present Illness: Pt seen and examined at bedside. He is awake and alert. He feels that edema is improving. - Current Medication List Current Medications: Active Medications Aspirin (Asa -) 81 mg PO DAILY [facility] Last Admin: 08/29/18 10:15 Dose: 81 mg Benzocaine/Butamben/Tetracaine HCl (Cetacaine [place] -) 1 spray TP DAILY [facility] Last Admin: 08/29/18 10:15 Dose: Not Given Budesonide/Formoterol Fumarate (Symbicort 160/4.5mcg -) 1 puff IH BID [facility] Last Admin: 08/29/18 10:16 Dose: 1 puff Docusate Sodium (Colace -) 100 mg PO TID [facility] Last Admin: 08/29/18 06:25 Dose: 100 mg Ferrous Sulfate (Feosol -) 325 mg PO TID [facility] Last Admin: 08/29/18 06:25 Dose: 325 mg Furosemide (Lasix -) 80 mg PO BID@0600,1400 [facility] Last Admin: 08/29/18 06:29 Dose: 80 mg Gabapentin (Neurontin -) 300 mg PO TID [facility] Last Admin: 08/29/18 06:27 Dose: 300 mg Heparin Sodium (Porcine) (Heparin -) 5,000 unit SQ TID [facility] Last Admin: 08/29/18 06:27 Dose: 5,000 unit Hydralazine HCl (Apresoline -) 100 mg PO TID [facility] Last Admin: 08/29/18 06:25 Dose: 100 mg Insulin Aspart (Novolog Mix 70/30 Vial) 40 units SQ BIDAC [facility] Last Admin: 08/29/18 06:44 Dose: 40 units Insulin Aspart (Novolog Vial Sliding Scale -) 1 vial SQ [facility]; Protocol Last Admin: 08/29/18 12:08 Dose: 8 units Insulin Detemir (Levemir Vial) 25 units SQ HS [facility] Last Admin: 08/28/18 22:23 Dose: 25 units Isosorbide Mononitrate (Imdur -) 60 mg PO DAILY [facility] Last Admin: 08/29/18 10:15 Dose: 60 mg Losartan Potassium (Cozaar -) 50 mg PO DAILY [facility] Last Admin: 08/29/18 10:15 Dose: 50 mg Metolazone (Zaroxolyn -) 5 mg PO DAILY [facility] Last Admin: 08/29/18 10:15 Dose: 5 mg Nifedipine (Procardia Xl -) 90 mg PO DAILY [facility] Last Admin: 08/29/18 10:15 Dose: 90 mg Prednisone (Deltasone -) 10 mg PO DAILY [facility] Last Admin: 08/29/18 10:15 Dose: 10 mg Rosuvastatin Calcium (Crestor -) 5 mg PO HS [facility] Last Admin: 08/28/18 22:22 Dose: 5 mg Senna (Senna -) 2 tab PO HS PRN PRN Reason: CONSTIPATION Tamsulosin HCl (Flomax -) 0.4 mg PO DAILY@0830 [facility] Last Admin: 08/29/18 09:00 Dose: 0.4 mg - Objective Vital Signs: Vital Signs Temperature 98.6 F 08/29/18 09:00 Pulse Rate 88 08/29/18 09:00 Respiratory Rate 20 08/29/18 09:00 Blood Pressure 124/55 L 08/29/18 09:00 O2 Sat by Pulse Oximetry (%) 97 08/29/18 08:35 Constitutional: Yes: Calm Eyes: Yes: Conjunctiva Clear HENT: Yes: Atraumatic Neck: Yes: Supple Cardiovascular: Yes: S1, S2 Respiratory: Yes: CTA Bilaterally, On Nasal O2 Gastrointestinal: Yes: Soft, Abdomen, Obese Genitourinary: Yes: WNL Edema: Yes Edema: LLE: 1+, RLE: 1+ Neurological: Yes: Oriented Psychiatric: Yes: Oriented Labs: CBC, BMP 08/29/18 05:59 08/29/18 05:59 INR, PTT INR 1.10 (0.83-1.09) H 08/12/18 21:00 Problem List - Problems (1) CKD (chronic kidney disease) Code(s): N18.9 - CHRONIC KIDNEY DISEASE, UNSPECIFIED (2) COPD exacerbation Code(s): J44.1 - CHRONIC OBSTRUCTIVE PULMONARY DISEASE W (ACUTE) EXACERBATION (3) Acute exacerbation of CHF (congestive heart failure) Code(s): I50.9 - HEART FAILURE, UNSPECIFIED Assessment/Plan Current Medications Generic Name Dose Route Start Last Admin Trade Name Freq PRN Reason Stop Dose Admin Aspirin 81 mg 08/13/18 10:00 08/29/18 10:15 Asa - PO 81 mg DAILY [facility] Administration Benzocaine/Butamben/Tetracaine HCl 1 spray 08/21/18 13:00 08/29/18 10:15 Cetacaine [place] - TP Not Given DAILY [facility] Budesonide/Formoterol Fumarate 1 puff 08/13/18 10:00 08/29/18 10:16 Symbicort 160/4.5mcg - IH 1 puff BID [facility] Administration Docusate Sodium 100 mg 08/27/18 14:00 08/29/18 06:25 Colace - PO 100 mg TID [facility] Administration Ferrous Sulfate 325 mg 08/13/18 06:00 08/29/18 06:25 Feosol - PO 325 mg TID [facility] Administration Furosemide 80 mg 08/28/18 14:00 08/29/18 06:29 Lasix - PO 80 mg BID@0600,1400 [facility] Administration Gabapentin 300 mg 08/13/18 06:00 08/29/18 06:27 Neurontin - PO 300 mg TID [facility] Administration Heparin Sodium (Porcine) 5,000 unit 08/27/18 22:00 08/29/18 06:27 Heparin - SQ 5,000 unit TID [facility] Administration Hydralazine HCl 100 mg 08/19/18 22:00 08/29/18 06:25 Apresoline - PO 100 mg TID [facility] Administration Insulin Aspart 40 units 08/18/18 22:49 08/29/18 06:44 Novolog Mix 70/30 Vial SQ 40 units BIDAC [facility] Administration Insulin Aspart 1 vial 08/21/18 18:39 08/29/18 12:08 Novolog Vial Sliding Scale - SQ 8 units ACHS [facility] Administration Protocol Insulin Detemir 25 units 08/18/18 22:50 08/28/18 22:23 Levemir Vial SQ 25 units HS [facility] Administration Isosorbide Mononitrate 60 mg 08/21/18 10:00 08/29/18 10:15 Imdur - PO 60 mg DAILY [facility] Administration Losartan Potassium 50 mg 08/27/18 10:00 08/29/18 10:15 Cozaar - PO 50 mg DAILY [facility] Administration Metolazone 5 mg 08/21/18 13:30 08/29/18 10:15 Zaroxolyn - PO 5 mg DAILY [facility] Administration Nifedipine 90 mg 08/13/18 10:00 08/29/18 10:15 Procardia Xl - PO 90 mg DAILY [facility] Administration Prednisone 10 mg 08/28/18 12:30 08/29/18 10:15 Deltasone - PO 10 mg DAILY [facility] Administration Rosuvastatin Calcium 5 mg 08/13/18 22:00 08/28/18 22:22 Crestor - PO 5 mg HS [facility] Administration Senna 2 tab 08/26/18 14:22 Senna - PO HS PRN CONSTIPATION Tamsulosin HCl 0.4 mg 08/13/18 08:30 08/29/18 09:00 Flomax - PO 0.4 mg DAILY@0830 [facility] Administration Impression 1. CKD 2. dyspnea 3. morbid obesity 4. DM 5. HTN 6. likely sleep apnea 7. chest pain 8. hyperkalemia Plan - renal function worsening - decrease dose of lasix to 40 mg po - hold losartan for now - cardio follow up - taper down steroids - monitor volume status - cardio follow up for chest pain - cont senna and colace - avoid constipation - recommend weight loss
[2018-08-29] MEDS ORDERED: predniSONE 5 MG TABLET (UD) PO SCH (12:32)
[2018-08-29 13:40] LABS: PLATELET COUNT 262 K/MM3 (134-434)
--- NOTE | 2018-08-29 13:57 | PN ---
Progress Note (short form) - Note Progress Note: PULMONARY States breathing is stable. No chest pain, cough or wheezing. Vital Signs Period Temp Pulse Resp BP Sys/Watson Pulse Ox Last 24 Hr 97.9 F-99.2 F 85-94 20-24 120-140/48-77 94-97 Gen: NAD in chair Heart: RRR Lung: decreased breath sounds at the bases Abd: soft, nontender Ext: + edema CBC, BMP 08/29/18 05:59 08/29/18 05:59 Active Medications Aspirin (Asa -) 81 mg PO DAILY [facility] Last Admin: 08/29/18 10:15 Dose: 81 mg Benzocaine/Butamben/Tetracaine HCl (Cetacaine [place] -) 1 spray TP DAILY [facility] Last Admin: 08/29/18 10:15 Dose: Not Given Budesonide/Formoterol Fumarate (Symbicort 160/4.5mcg -) 1 puff IH BID [facility] Last Admin: 08/29/18 10:16 Dose: 1 puff Docusate Sodium (Colace -) 100 mg PO TID [facility] Last Admin: 08/29/18 13:52 Dose: 100 mg Ferrous Sulfate (Feosol -) 325 mg PO TID [facility] Last Admin: 08/29/18 13:52 Dose: 325 mg Furosemide (Lasix -) 40 mg PO DAILY [facility] Gabapentin (Neurontin -) 300 mg PO TID [facility] Last Admin: 08/29/18 13:52 Dose: 300 mg Heparin Sodium (Porcine) (Heparin -) 5,000 unit SQ TID [facility] Last Admin: 08/29/18 13:52 Dose: 5,000 unit Hydralazine HCl (Apresoline -) 100 mg PO TID [facility] Last Admin: 08/29/18 13:55 Dose: 100 mg Insulin Aspart (Novolog Mix 70/30 Vial) 40 units SQ BIDAC [facility] Last Admin: 08/29/18 06:44 Dose: 40 units Insulin Aspart (Novolog Vial Sliding Scale -) 1 vial SQ ACHS [facility]; Protocol Last Admin: 08/29/18 12:08 Dose: 8 units Insulin Detemir (Levemir Vial) 25 units SQ HS [facility] Last Admin: 08/28/18 22:23 Dose: 25 units Isosorbide Mononitrate (Imdur -) 60 mg PO DAILY [facility] Last Admin: 08/29/18 10:15 Dose: 60 mg Metolazone (Zaroxolyn -) 5 mg PO DAILY [facility] Last Admin: 08/29/18 10:15 Dose: 5 mg Nifedipine (Procardia Xl -) 90 mg PO DAILY [facility] Last Admin: 08/29/18 10:15 Dose: 90 mg Prednisone (Deltasone -) 5 mg PO DAILY [facility] Rosuvastatin Calcium (Crestor -) 5 mg PO HS [facility] Last Admin: 08/28/18 22:22 Dose: 5 mg Senna (Senna -) 2 tab PO HS PRN PRN Reason: CONSTIPATION Tamsulosin HCl (Flomax -) 0.4 mg PO DAILY@0830 [facility] Last Admin: 08/29/18 09:00 Dose: 0.4 mg A/P Acute on Chronic Hypoxic and Hypercapneic Respiratory Failure improving Acute COPD Exacerbation Acute on Chronic Diastolic Heart Failure Pulmonary HTN Morbid Obesity TATI/OHS HTN DM CKD - taper off prednisone - inhaled bronchodilators - O2 to keep Spo2 >90% - BiPAP at night and PRN during day - lasix as needed - monitor urine output, creatinine - DVT prophylaxis - d/c planning
[2018-08-29 20:13] VITALS: BMI 73.3
--- NOTE | 2018-08-29 21:44 | PN ---
Progress Note, Physician History of Present Illness: No new complaints - Current Medication List Current Medications: Active Medications Aspirin (Asa -) 81 mg PO DAILY [facility] Last Admin: 08/29/18 10:15 Dose: 81 mg Benzocaine/Butamben/Tetracaine HCl (Cetacaine [place] -) 1 spray TP DAILY [facility] Last Admin: 08/29/18 10:15 Dose: Not Given Budesonide/Formoterol Fumarate (Symbicort 160/4.5mcg -) 1 puff IH BID [facility] Last Admin: 08/29/18 10:16 Dose: 1 puff Docusate Sodium (Colace -) 100 mg PO TID [facility] Last Admin: 08/29/18 13:52 Dose: 100 mg Ferrous Sulfate (Feosol -) 325 mg PO TID [facility] Last Admin: 08/29/18 13:52 Dose: 325 mg Furosemide (Lasix -) 40 mg PO DAILY [facility] Gabapentin (Neurontin -) 300 mg PO TID [facility] Last Admin: 08/29/18 13:52 Dose: 300 mg Heparin Sodium (Porcine) (Heparin -) 5,000 unit SQ TID [facility] Last Admin: 08/29/18 13:52 Dose: 5,000 unit Hydralazine HCl (Apresoline -) 100 mg PO TID [facility] Last Admin: 08/29/18 13:55 Dose: 100 mg Insulin Aspart (Novolog Mix 70/30 Vial) 40 units SQ BIDAC [facility] Last Admin: 08/29/18 17:38 Dose: 40 units Insulin Aspart (Novolog Vial Sliding Scale -) 1 vial SQ [facility]; Protocol Last Admin: 08/29/18 17:38 Dose: 8 units Insulin Detemir (Levemir Vial) 25 units SQ [facility] Last Admin: 08/28/18 22:23 Dose: 25 units Isosorbide Mononitrate (Imdur -) 60 mg PO DAILY [facility] Last Admin: 08/29/18 10:15 Dose: 60 mg Metolazone (Zaroxolyn -) 5 mg PO DAILY [facility] Last Admin: 08/29/18 10:15 Dose: 5 mg Nifedipine (Procardia Xl -) 90 mg PO DAILY [facility] Last Admin: 08/29/18 10:15 Dose: 90 mg Prednisone (Deltasone -) 5 mg PO DAILY [facility] Rosuvastatin Calcium (Crestor -) 5 mg PO [facility] Last Admin: 08/28/18 22:22 Dose: 5 mg Senna (Senna -) 2 tab PO HS PRN PRN Reason: CONSTIPATION Tamsulosin HCl (Flomax -) 0.4 mg PO DAILY@0830 [facility] Last Admin: 08/29/18 09:00 Dose: 0.4 mg - Objective Vital Signs: Vital Signs Temperature 97.7 F 08/29/18 18:00 Pulse Rate 90 08/29/18 18:00 Respiratory Rate 18 08/29/18 18:00 Blood Pressure 115/60 08/29/18 18:00 O2 Sat by Pulse Oximetry (%) 98 08/29/18 21:08 Constitutional: Yes: Obese Neck: Yes: WNL, Supple Cardiovascular: Yes: WNL, Regular Rate and Rhythm Respiratory: Yes: Diminished Gastrointestinal: Yes: WNL, Normal Bowel Sounds, Soft, Abdomen, Obese Labs: CBC, BMP 08/29/18 05:59 08/29/18 05:59 INR, PTT INR 1.10 (0.83-1.09) H 08/12/18 21:00 Problem List - Problems (1) Diastolic CHF Assessment/Plan: Acute on chronic diastolic heart failure Cont zaroxolyn Lasix was held today due to increasing bun/creatinine Check labs in am Monitor electrolytes Code(s): I50.30 - UNSPECIFIED DIASTOLIC (CONGESTIVE) HEART FAILURE (2) COPD exacerbation Assessment/Plan: Cont po sterpoids Cont nebulizers Code(s): J44.1 - CHRONIC OBSTRUCTIVE PULMONARY DISEASE W (ACUTE) EXACERBATION (3) Acute on chronic kidney failure Assessment/Plan: Cont to monitor labs Code(s): N17.9 - ACUTE KIDNEY FAILURE, UNSPECIFIED; N18.9 - CHRONIC KIDNEY DISEASE, UNSPECIFIED (4) Acute on chronic respiratory failure with hypoxia and hypercapnia Code(s): J96.21 - ACUTE AND CHRONIC RESPIRATORY FAILURE WITH HYPOXIA; J96.22 - ACUTE AND CHRONIC RESPIRATORY FAILURE WITH HYPERCAPNIA (5) Diabetes Assessment/Plan: Cont sliding scale w/ coverage Code(s): E11.9 - TYPE 2 DIABETES MELLITUS WITHOUT COMPLICATIONS (6) Hyperlipidemia Assessment/Plan: Cont statin Code(s): E78.5 - HYPERLIPIDEMIA, UNSPECIFIED (7) Hypertension Assessment/Plan: BP stable Cont antihypertensives Code(s): I10 - ESSENTIAL (PRIMARY) HYPERTENSION Qualifiers: Hypertension type: unspecified Qualified Code(s): I10 - Essential (primary ) hypertension (8) Morbid obesity Code(s): E66.01 - MORBID (SEVERE) OBESITY DUE TO EXCESS CALORIES (9) Sleep apnea Code(s): G47.30 - SLEEP APNEA, UNSPECIFIED (10) Abscess Assessment/Plan: As per surgery no intervention at this time Code(s): L02.91 - CUTANEOUS ABSCESS, UNSPECIFIED (11) Chest pain Code(s): R07.9 - CHEST PAIN, UNSPECIFIED
[2018-08-29] MEDS: ROSUVASTATIN CA 5 MG TABLET (FP) PO SCH (22:02)
[2018-08-29] MEDS: INSULIN (LEVEMIR) 100 UNITS/ML UNITS SQ SCH (22:03)
[2018-08-30] MEDS: GABAPENTIN 300 MG CAPSULE (FP) PO SCH ×2 (06:23→13:46)
[2018-08-30] MEDS: hydrALAZINE HCL 50 MG TABLET (FP) PO SCH ×2 (06:23→13:46)
[2018-08-30] MEDS: INSULIN SLIDING SCALE (NOVOLOG) 1 VIAL SQ SCH ×3 (06:23→17:01)
[2018-08-30] MEDS: HEPARIN NA (PORCINE) 5,000 UNITS/ML 1ML VIAL SQ SCH ×2 (06:23→13:47)
[2018-08-30] MEDS: INSULIN (NOVOLOG MIX 70/30) 100 UNITS/ML MDV SQ SCH ×2 (06:23→17:00)
[2018-08-30] MEDS: FERROUS SO4 325 MG TABLET (FP) PO SCH ×2 (06:23→13:47)
[2018-08-30] MEDS: DOCUSATE SODIUM 100 MG CAPSULE (FP) PO SCH ×2 (06:23→13:47)
[2018-08-30 06:44] LABS: ALBUMIN 3.1 g/dl (3.4-5.0); BILIRUBIN,TOTAL 0.9 mg/dL (0.2-1); CALCIUM 8.7 mg/dL (8.5-10.1); CREATININE 3.2 mg/dL (0.55-1.3); POTASSIUM 4.2 mmol/L (3.5-5.1); TOT PROT 5.8 g/dl (6.4-8.2)
[2018-08-30 06:49] LABS: BLOOD UREA NITROGEN 115.4 mg/dL (7-18)
[2018-08-30] MEDS: TAMSULOSIN HCL 0.4 MG CAP PO SCH (07:54)
--- NOTE | 2018-08-30 09:17 | PN ---
Progress Note, Physician History of Present Illness: The patient is a 47-year-old male with a past medical history significant for morbid obesity, DM, HTN, HLD, COPD (on home O2, recently increased from 2L to 4L by PCP) presents to the emergency department with chest pain, SOB and a cough. The patient presents with shortness of breath, chest pain, and productive cough with greyish-white sputum production, with mild hemoptysis. The patient reports the chest pain is sharp and pleuritic in quality, with a severity of 6/10. The patient reports the pain presented while at rest, now aggravated with exertion. The patient reports hes been noncompliant with breathing treatments secondary to problems with the machine. Denies recent travel. Denies hx of blood clots. Patient reports a history of lymphedema, with increased leg swelling. The patient reports a recent medication change by his soapstoner; however, he is unsure which medication. Allergies: NKDA PCP: Dr. Sukumar Ortiz. - Current Medication List Current Medications: Active Medications Aspirin (Asa -) 81 mg PO DAILY [facility] Last Admin: 08/29/18 10:15 Dose: 81 mg Benzocaine/Butamben/Tetracaine HCl (Cetacaine [place] -) 1 spray TP DAILY [facility] Last Admin: 08/29/18 10:15 Dose: Not Given Budesonide/Formoterol Fumarate (Symbicort 160/4.5mcg -) 1 puff IH BID [facility] Last Admin: 08/29/18 22:03 Dose: 1 puff Docusate Sodium (Colace -) 100 mg PO TID [facility] Last Admin: 08/30/18 06:23 Dose: 100 mg Ferrous Sulfate (Feosol -) 325 mg PO TID [facility] Last Admin: 08/30/18 06:23 Dose: 325 mg Furosemide (Lasix -) 40 mg PO DAILY [facility] Gabapentin (Neurontin -) 300 mg PO TID [facility] Last Admin: 08/30/18 06:23 Dose: 300 mg Heparin Sodium (Porcine) (Heparin -) 5,000 unit SQ TID [facility] Last Admin: 08/30/18 06:23 Dose: 5,000 unit Hydralazine HCl (Apresoline -) 100 mg PO TID [facility] Last Admin: 08/30/18 06:23 Dose: 100 mg Insulin Aspart (Nov[facility] 70/30 [facility]ial) [facility] Last Admin: 08/30/18 06:23 Dose: Not Given Insulin Aspart (Novolog Vial Sliding Scale -) 1 vial SQ [facility]; Protocol Last Admin: 08/30/18 06:23 Dose: Not Given Insulin Detemir (Levemir Vial) 25 units SQ HS [facility] Last Admin: 08/29/18 22:03 Dose: 25 units Isosorbide Mononitrate (Imdur -) 60 mg PO DAILY [facility] Last Admin: 08/29/18 10:15 Dose: 60 mg Metolazone (Zaroxolyn -) 5 mg PO DAILY [facility] Last Admin: 08/29/18 10:15 Dose: 5 mg Nifedipine (Procardia Xl -) 90 mg PO DAILY [facility] Last Admin: 08/29/18 10:15 Dose: 90 mg Prednisone (Deltasone -) 5 mg PO DAILY [facility] Rosuvastatin Calcium (Crestor -) 5 mg PO HS [facility] Last Admin: 08/29/18 22:02 Dose: 5 mg Senna (Senna -) 2 tab PO HS PRN PRN Reason: CONSTIPATION Tamsulosin HCl (Flomax -) 0.4 mg PO DAILY@0830 [facility] Last Admin: 08/30/18 07:54 Dose: 0.4 mg - Objective Vital Signs: Vital Signs Temperature 98.1 F 08/30/18 06:00 Pulse Rate 89 08/30/18 06:00 Respiratory Rate 20 08/30/18 06:00 Blood Pressure 149/80 08/30/18 06:00 O2 Sat by Pulse Oximetry (%) 90 L 08/30/18 07:21 Eyes: Yes: WNL, Conjunctiva Clear, EOM Intact HENT: Yes: WNL, Atraumatic, Normocephalic Neck: Yes: WNL, Supple, Trachea Midline Cardiovascular: Yes: WNL, Regular Rate and Rhythm Respiratory: Yes: WNL, Regular, CTA Bilaterally Gastrointestinal: Yes: WNL, Normal Bowel Sounds Genitourinary: Yes: WNL Musculoskeletal: Yes: WNL Extremities: Yes: WNL Edema: Yes Integumentary: Yes: WNL Neurological: Yes: WNL, Alert, Oriented ...Motor Strength: WNL Psychiatric: Yes: WNL Labs: CBC, BMP 08/29/18 05:59 08/30/18 05:02 INR, PTT INR 1.10 (0.83-1.09) H 08/12/18 21:00 Problem List - Problems (1) COPD exacerbation Code(s): J44.1 - CHRONIC OBSTRUCTIVE PULMONARY DISEASE W (ACUTE) EXACERBATION (2) Chest pain Code(s): R07.9 - CHEST PAIN, UNSPECIFIED (3) Acute exacerbation of CHF (congestive heart failure) Code(s): I50.9 - HEART FAILURE, UNSPECIFIED (4) Acute on chronic respiratory failure with hypoxia and hypercapnia Code(s): J96.21 - ACUTE AND CHRONIC RESPIRATORY FAILURE WITH HYPOXIA; J96.22 - ACUTE AND CHRONIC RESPIRATORY FAILURE WITH HYPERCAPNIA (5) Acute renal failure Code(s): N17.9 - ACUTE KIDNEY FAILURE, UNSPECIFIED (6) Back spasm Code(s): M62.830 - MUSCLE SPASM OF BACK (7) Diabetes Code(s): E11.9 - TYPE 2 DIABETES MELLITUS WITHOUT COMPLICATIONS (8) Diastolic CHF Code(s): I50.30 - UNSPECIFIED DIASTOLIC (CONGESTIVE) HEART FAILURE (9) Elevated CK Code(s): R74.8 - ABNORMAL LEVELS OF OTHER SERUM ENZYMES (10) Elevated troponin I level Code(s): R74.8 - ABNORMAL LEVELS OF OTHER SERUM ENZYMES (11) Hyperkalemia Code(s): E87.5 - HYPERKALEMIA (12) Hyperlipidemia Code(s): E78.5 - HYPERLIPIDEMIA, UNSPECIFIED (13) Hypertension Code(s): I10 - ESSENTIAL (PRIMARY) HYPERTENSION Qualifiers: Hypertension type: unspecified Qualified Code(s): I10 - Essential (primary ) hypertension (14) Kidney failure Code(s): N19 - UNSPECIFIED KIDNEY FAILURE (15) Kidney stone Code(s): N20.0 - CALCULUS OF KIDNEY (16) Morbid exogenous obesity Code(s): E66.01 - MORBID (SEVERE) OBESITY DUE TO EXCESS CALORIES (17) Morbid obesity Code(s): E66.01 - MORBID (SEVERE) OBESITY DUE TO EXCESS CALORIES (18) Obesity hypoventilation syndrome Code(s): E66.2 - MORBID (SEVERE) OBESITY WITH ALVEOLAR HYPOVENTILATION (19) Pulmonary HTN Code(s): I27.2 - OTHER SECONDARY PULMONARY HYPERTENSION * DO NOT USE * (20) Renal insufficiency Code(s): N28.9 - DISORDER OF KIDNEY AND URETER, UNSPECIFIED (21) Respiratory distress Code(s): R06.00 - DYSPNEA, UNSPECIFIED (22) Shortness of breath Code(s): R06.02 - SHORTNESS OF BREATH (23) Sleep apnea Code(s): G47.30 - SLEEP APNEA, UNSPECIFIED (24) Syncope Code(s): R55 - SYNCOPE AND COLLAPSE (25) Tachycardia Code(s): R00.0 - TACHYCARDIA, UNSPECIFIED (26) UTI (urinary tract infection) Code(s): N39.0 - URINARY TRACT INFECTION, SITE NOT SPECIFIED (27) Viral syndrome Code(s): B34.9 - VIRAL INFECTION, UNSPECIFIED Assessment/Plan - Problems (1) Acute on chronic kidney failure Assessment/Plan: On fruosemide and metolazone. f/u with soapstoner. Code(s): N17.9 - ACUTE KIDNEY FAILURE, UNSPECIFIED; N18.9 - CHRONIC KIDNEY DISEASE, UNSPECIFIED (2) COPD exacerbation Assessment/Plan: f/u with computer terminal operator. Code(s): J44.1 - CHRONIC OBSTRUCTIVE PULMONARY DISEASE W (ACUTE) EXACERBATION (3) Acute on chronic respiratory failure with hypoxia and hypercapnia Assessment/Plan: Steroids, bronchodilators, O2, Bipap, antibiotics per computer terminal operator. Code(s): J96.21 - ACUTE AND CHRONIC RESPIRATORY FAILURE WITH HYPOXIA; J96.22 - ACUTE AND CHRONIC RESPIRATORY FAILURE WITH HYPERCAPNIA (4) Diastolic CHF Assessment/Plan: On nifedipine XL, hydrlazine, furosemide, and metolazone; Imdur added. (Recommend eventually discontinuing nifedipine: risks of edema, heart failure). Hydralazine may also contribute to edema. ECHO: normal LVEF: abnormal diastolic compliance; RV dilatation and reduced RVEF ; evidence of fluid overload (flattened ventricular septum). F/u BUN/Cr, electrolytes, daily weight, Is and Os. Code(s): I50.30 - UNSPECIFIED DIASTOLIC (CONGESTIVE) HEART FAILURE (5) Renal insufficiency Code(s): N28.9 - DISORDER OF KIDNEY AND URETER, UNSPECIFIED (6) Respiratory distress Code(s): R06.00 - DYSPNEA, UNSPECIFIED (7) Sleep apnea Code(s): G47.30 - SLEEP APNEA, UNSPECIFIED (8) Morbid obesity Assessment/Plan: Pt has had discussions in the past regarding gastric bypass surgery. See under "depression". Code(s): E66.01 - MORBID (SEVERE) OBESITY DUE TO EXCESS CALORIES (9) Aortic root dilatation Assessment/Plan: Mild dilatation by ECHO this visit. F/u prior studies for comparison. CTA problematic due to renal dysfunction. Code(s): I77.810 - THORACIC AORTIC ECTASIA (10) Knee pain Assessment/Plan: bilateral knee pain; hx bilateral arthroscopic surgery. Code(s): M25.569 - PAIN IN UNSPECIFIED KNEE (11) Depression Assessment/Plan: Pt's former work associate, who says she is Lupillo's "substitute mother"(his biological mother a few months ago), says he has had periods of severe depression for many years. A few years ago, he had to be admitted to [facility] psychiatric floor. He has talked of committing suicde in the past. When his sister a few years ago, and upon his mother's , he gained abou 100 lbs within amonth each time. She says he "loves starches"; while confined at home, he calls out constantly for fast food in large portions. She took him to gastric bypass surgeon at [facility]; Cindy was considered at high risk for surgery. F/u with psychologist/psychiatrist. f/u with furniture upholsterer apprentice. Code(s): F32.9 - MAJOR DEPRESSIVE DISORDER, SINGLE EPISODE, UNSPECIFIED (12) Atypical chest pain Assessment/Plan: No further chest pain No arrhythymias. off IV heparin cont ASA (Pt says he had a catheterization of the heart a few years ago at this hospital he believes was for the coronary arteries. 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
[2018-08-30] MEDS ORDERED: PT OWN MED DRAWER 7, Y5N ONE (09:27)
[2018-08-30] MEDS: NIFEdipine E.R. 90 MG TABLET (FP) PO SCH (09:30)
[2018-08-30] MEDS: METOLAZONE 5 MG TABLET PO SCH (09:30)
[2018-08-30] MEDS: TETRACAINE/BENZOCAINE/BUTAMBEN 20 GM SPR TP SCH (09:30)
[2018-08-30] MEDS: ASPIRIN 81 MG CHEWABLE TABLETS PO SCH (09:30)
[2018-08-30] MEDS: ISOSORBIDE MONONITRATE 30 MG TAB.SR.24H (FP) PO SCH (09:30)
[2018-08-30] MEDS ORDERED: FUROSEMIDE 40 MG TABLET (FP) PO SCH (10:00)
[2018-08-30 10:18] VITALS: TEMP 97.6
--- NOTE | 2018-08-30 10:31 | PN ---
Progress Note, Physician History of Present Illness: PULMONARY MORE LETHARGIC,ON NASAL CANNULA - Current Medication List Current Medications: Active Medications Aspirin (Asa -) 81 mg PO DAILY [facility] Last Admin: 08/30/18 09:30 Dose: 81 mg Benzocaine/Butamben/Tetracaine HCl (Cetacaine [place] -) 1 spray TP DAILY [facility] Last Admin: 08/30/18 09:30 Dose: Not Given Budesonide/Formoterol Fumarate (Symbicort 160/4.5mcg -) 1 puff IH BID [facility] Last Admin: 08/29/18 22:03 Dose: 1 puff Docusate Sodium (Colace -) 100 mg PO TID [facility] Last Admin: 08/30/18 06:23 Dose: 100 mg Ferrous Sulfate (Feosol -) 325 mg PO TID [facility] Last Admin: 08/30/18 06:23 Dose: 325 mg Furosemide (Lasix -) 40 mg PO DAILY [facility] Gabapentin (Neurontin -) 300 mg PO TID [facility] Last Admin: 08/30/18 06:23 Dose: 300 mg Heparin Sodium (Porcine) (Heparin -) 5,000 unit SQ TID [facility] Last Admin: 08/30/18 06:23 Dose: 5,000 unit Hydralazine HCl (Apresoline -) 100 mg PO TID [facility] Last Admin: 08/30/18 06:23 Dose: 100 mg Insulin Aspart (Novolog Mix 70/30 Vial) 40 units SQ [facility]IDAC [facility] Last Admin: 08/30/18 06:23 Dose: Not Given Insulin Aspart (Novolog Vial Sliding Scale -) 1 vial SQ [facility]; Protocol Last Admin: 08/30/18 06:23 Dose: Not Given Insulin Detemir (Levemir Vial) 25 units SQ [facility] Last Admin: 08/29/18 22:03 Dose: 25 units Isosorbide Mononitrate (Imdur -) 60 mg PO DAILY [facility] Last Admin: 08/30/18 09:30 Dose: 60 mg Metolazone (Zaroxolyn -) 5 mg PO DAILY [facility] Last Admin: 08/30/18 09:30 Dose: 5 mg Nifedipine (Procardia Xl -) 90 mg PO DAILY [facility] Last Admin: 08/30/18 09:30 Dose: 90 mg Prednisone (Deltasone -) 5 mg PO DAILY [facility] Last Admin: 08/30/18 09:30 Dose: 5 mg Rosuvastatin Calcium (Crestor -) 5 mg PO HS [facility] Last Admin: 08/29/18 22:02 Dose: 5 mg Senna (Senna -) 2 tab PO HS PRN PRN Reason: CONSTIPATION Tamsulosin HCl (Flomax -) 0.4 mg PO DAILY@0830 [facility] Last Admin: 08/30/18 07:54 Dose: 0.4 mg - Objective Vital Signs: Vital Signs Temperature 97.6 F 08/30/18 10:00 Pulse Rate 92 H 08/30/18 10:00 Respiratory Rate 20 08/30/18 10:00 Blood Pressure 110/48 L 08/30/18 10:00 O2 Sat by Pulse Oximetry (%) 94 L 08/30/18 10:00 Constitutional: Yes: Obese, Other (LETHARGIC) Eyes: Yes: WNL HENT: Yes: WNL Neck: Yes: WNL Cardiovascular: Yes: Regular Rate and Rhythm, S1, S2 Respiratory: Yes: Diminished Gastrointestinal: Yes: Normal Bowel Sounds, Soft Extremities: Yes: WNL Edema: Yes Labs: CBC, BMP 08/29/18 05:59 08/30/18 05:02 INR, PTT INR 1.10 (0.83-1.09) H 08/12/18 21:00 Problem List - Problems (1) CKD (chronic kidney disease) Code(s): N18.9 - CHRONIC KIDNEY DISEASE, UNSPECIFIED (2) COPD exacerbation Code(s): J44.1 - CHRONIC OBSTRUCTIVE PULMONARY DISEASE W (ACUTE) EXACERBATION (3) Acute exacerbation of CHF (congestive heart failure) Code(s): I50.9 - HEART FAILURE, UNSPECIFIED (4) Acute on chronic respiratory failure with hypoxia and hypercapnia Code(s): J96.21 - ACUTE AND CHRONIC RESPIRATORY FAILURE WITH HYPOXIA; J96.22 - ACUTE AND CHRONIC RESPIRATORY FAILURE WITH HYPERCAPNIA (5) Acute renal failure Code(s): N17.9 - ACUTE KIDNEY FAILURE, UNSPECIFIED (6) Diabetes Code(s): E11.9 - TYPE 2 DIABETES MELLITUS WITHOUT COMPLICATIONS (7) Hypertension Code(s): I10 - ESSENTIAL (PRIMARY) HYPERTENSION Qualifiers: Hypertension type: unspecified Qualified Code(s): I10 - Essential (primary ) hypertension (8) Morbid exogenous obesity Code(s): E66.01 - MORBID (SEVERE) OBESITY DUE TO EXCESS CALORIES (9) Morbid obesity Code(s): E66.01 - MORBID (SEVERE) OBESITY DUE TO EXCESS CALORIES (10) Obesity hypoventilation syndrome Code(s): E66.2 - MORBID (SEVERE) OBESITY WITH ALVEOLAR HYPOVENTILATION (11) Pulmonary HTN Code(s): I27.2 - OTHER SECONDARY PULMONARY HYPERTENSION * DO NOT USE * (12) Respiratory distress Code(s): R06.00 - DYSPNEA, UNSPECIFIED (13) Shortness of breath Code(s): R06.02 - SHORTNESS OF BREATH (14) Sleep apnea Code(s): G47.30 - SLEEP APNEA, UNSPECIFIED (15) Acute on chronic kidney failure Code(s): N17.9 - ACUTE KIDNEY FAILURE, UNSPECIFIED; N18.9 - CHRONIC KIDNEY DISEASE, UNSPECIFIED Assessment/Plan IMP ACUTE ON CHRONIC HYPOXEMIC RESPIRATORY FAILURE CHRONIC HYPOXEMIC/HYPERCAPNEIC RESPIRATORY FAILURE COPD EXACERBATION IMPROVING DIASTOLIC HF CHEST PAIN PULMONARY HTN COR PULMONALE OBESITY-HYPOVENTILATION SYNDROME ACUTE ON CHRONIC KIDNEY DISEASE HTN DM TATI PLAN NIPPV AT NIGHT AND NEEDED TO HELP REDUCE WORK OF BREATHING O2 TO MAINTAIN O2 SAT 90% OR GREATER PREDNISONE BIPAP AT NIGHT AND PRN INHALED BRONCHODILATORS LASIX DAILY WT DVT PROPHYLAXIS MONITOR LYTES,RENAL FUNCTION ABG DR SALVADOR Problem List - Problems (1) CKD (chronic kidney disease) Code(s): N18.9 - CHRONIC KIDNEY DISEASE, UNSPECIFIED (2) COPD exacerbation Code(s): J44.1 - CHRONIC OBSTRUCTIVE PULMONARY DISEASE W (ACUTE) EXACERBATION (3) Acute exacerbation of CHF (congestive heart failure) Code(s): I50.9 - HEART FAILURE, UNSPECIFIED (4) Acute on chronic respiratory failure with hypoxia and hypercapnia Code(s): J96.21 - ACUTE AND CHRONIC RESPIRATORY FAILURE WITH HYPOXIA; J96.22 - ACUTE AND CHRONIC RESPIRATORY FAILURE WITH HYPERCAPNIA (5) Acute renal failure Code(s): N17.9 - ACUTE KIDNEY FAILURE, UNSPECIFIED (6) Diabetes Code(s): E11.9 - TYPE 2 DIABETES MELLITUS WITHOUT COMPLICATIONS (7) Hypertension Code(s): I10 - ESSENTIAL (PRIMARY) HYPERTENSION Qualifiers: Hypertension type: unspecified Qualified Code(s): I10 - Essential (primary ) hypertension (8) Morbid exogenous obesity Code(s): E66.01 - MORBID (SEVERE) OBESITY DUE TO EXCESS CALORIES (9) Morbid obesity Code(s): E66.01 - MORBID (SEVERE) OBESITY DUE TO EXCESS CALORIES (10) Obesity hypoventilation syndrome Code(s): E66.2 - MORBID (SEVERE) OBESITY WITH ALVEOLAR HYPOVENTILATION (11) Pulmonary HTN Code(s): I27.2 - OTHER SECONDARY PULMONARY HYPERTENSION * DO NOT USE * (12) Respiratory distress Code(s): R06.00 - DYSPNEA, UNSPECIFIED (13) Shortness of breath Code(s): R06.02 - SHORTNESS OF BREATH (14) Sleep apnea Code(s): G47.30 - SLEEP APNEA, UNSPECIFIED (15) Acute on chronic kidney failure Code(s): N17.9 - ACUTE KIDNEY FAILURE, UNSPECIFIED; N18.9 - CHRONIC KIDNEY DISEASE, UNSPECIFIED
[2018-08-30] MEDS: BUDESONIDE/FORMETEROL FUMARATE 160/4.5 mcg INHALER IH SCH (11:05)
[2018-08-30 11:15] LABS: ARTERIAL BLD GAS O2 SATURATION 78.6 % (95-98); ARTERIAL BLOOD GAS BASE EXCESS 3.3 meq/l (-2-2); ARTERIAL BLOOD GAS PCO2 59.4 mmHg (35-45); ARTERIAL BLOOD GAS PO2 43.8 mmHg (80-105); ARTERIAL BLOOD GAS pH 7.32 (7.35-7.45)
[2018-08-30 11:19] LABS: ALLENS TEST POSITIVE
--- NOTE | 2018-08-30 13:43 | PN ---
Progress Note, Physician History of Present Illness: Pt seen and examined at bedside. He is awake and alert. He feels that his breathing is improving. - Current Medication List Current Medications: Active Medications Aspirin (Asa -) 81 mg PO DAILY [facility] Last Admin: 08/30/18 09:30 Dose: 81 mg Benzocaine/Butamben/Tetracaine HCl (Cetacaine [place] -) 1 spray TP DAILY [facility] Last Admin: 08/30/18 09:30 Dose: Not Given Budesonide/Formoterol Fumarate (Symbicort 160/4.5mcg -) 1 puff IH BID [facility] Last Admin: 08/30/18 11:05 Dose: 1 puff Docusate Sodium (Colace -) 100 mg PO TID [facility] Last Admin: 08/30/18 06:23 Dose: 100 mg Ferrous Sulfate (Feosol -) 325 mg PO TID [facility] Last Admin: 08/30/18 06:23 Dose: 325 mg Furosemide (Lasix -) 40 mg PO DAILY [facility] Last Admin: 08/30/18 11:03 Dose: 40 mg Gabapentin (Neurontin -) 300 mg PO TID [facility] Last Admin: 08/30/18 06:23 Dose: 300 mg Heparin Sodium (Porcine) (Heparin -) 5,000 unit SQ TID [facility] Last Admin: 08/30/18 06:23 Dose: 5,000 unit Hydralazine HCl (Apresoline -) 100 mg PO TID [facility] Last Admin: 08/30/18 06:23 Dose: 100 mg Insulin Aspart (Novolog Mix 70/30 Vial) 40 units SQ BIDAC [facility] Last Admin: 08/30/18 06:23 Dose: Not Given Insulin Aspart (Novolog Vial Sliding Scale -) 1 vial SQ [facility]; Protocol Last Admin: 08/30/18 12:06 Dose: 8 units Insulin Detemir (Levemir Vial) 25 units SQ HS [facility] Last Admin: 08/29/18 22:03 Dose: 25 units Isosorbide Mononitrate (Imdur -) 60 mg PO DAILY [facility] Last Admin: 08/30/18 09:30 Dose: 60 mg Metolazone (Zaroxolyn -) 5 mg PO DAILY [facility] Last Admin: 08/30/18 09:30 Dose: 5 mg Nifedipine (Procardia Xl -) 90 mg PO DAILY [facility] Last Admin: 08/30/18 09:30 Dose: 90 mg Prednisone (Deltasone -) 5 mg PO DAILY [facility] Last Admin: 08/30/18 09:30 Dose: 5 mg Rosuvastatin Calcium (Crestor -) 5 mg PO HS [facility] Last Admin: 08/29/18 22:02 Dose: 5 mg Senna (Senna -) 2 tab PO HS PRN PRN Reason: CONSTIPATION Tamsulosin HCl (Flomax -) 0.4 mg PO DAILY@0830 [facility] Last Admin: 08/30/18 07:54 Dose: 0.4 mg - Objective Vital Signs: Vital Signs Temperature 97.6 F 08/30/18 10:00 Pulse Rate 92 H 08/30/18 10:00 Respiratory Rate 20 08/30/18 10:00 Blood Pressure 110/48 L 08/30/18 10:00 O2 Sat by Pulse Oximetry (%) 100 08/30/18 11:02 Constitutional: Yes: Calm Eyes: Yes: Conjunctiva Clear HENT: Yes: Atraumatic Cardiovascular: Yes: S1, S2 Respiratory: Yes: CTA Bilaterally, On Nasal O2 Gastrointestinal: Yes: Soft, Abdomen, Obese Genitourinary: Yes: WNL Extremities: Yes: WNL Edema: Yes Edema: LLE: 1+, RLE: 1+ Neurological: Yes: Oriented Psychiatric: Yes: Oriented Labs: CBC, BMP 08/29/18 05:59 08/30/18 05:02 INR, PTT INR 1.10 (0.83-1.09) H 08/12/18 21:00 Problem List - Problems (1) CKD (chronic kidney disease) Code(s): N18.9 - CHRONIC KIDNEY DISEASE, UNSPECIFIED (2) COPD exacerbation Code(s): J44.1 - CHRONIC OBSTRUCTIVE PULMONARY DISEASE W (ACUTE) EXACERBATION (3) Acute exacerbation of CHF (congestive heart failure) Code(s): I50.9 - HEART FAILURE, UNSPECIFIED Assessment/Plan Current Medications Generic Name Dose Route Start Last Admin Trade Name Freq PRN Reason Stop Dose Admin Aspirin 81 mg 08/13/18 10:00 08/30/18 09:30 Asa - PO 81 mg DAILY [facility] Administration Benzocaine/Butamben/Tetracaine HCl 1 spray 08/21/18 13:00 08/30/18 09:30 Cetacaine [place] - TP Not Given DAILY [facility] Budesonide/Formoterol Fumarate 1 puff 08/13/18 10:00 08/30/18 11:05 Symbicort 160/4.5mcg - IH 1 puff BID [facility] Administration Docusate Sodium 100 mg 08/27/18 14:00 08/30/18 06:23 Colace - PO 100 mg TID [facility] Administration Ferrous Sulfate 325 mg 08/13/18 06:00 08/30/18 06:23 Feosol - PO 325 mg TID [facility] Administration Furosemide 40 mg 08/30/18 10:00 08/30/18 11:03 Lasix - PO 40 mg DAILY [facility] Administration Gabapentin 300 mg 08/13/18 06:00 08/30/18 06:23 Neurontin - PO 300 mg TID [facility] Administration Heparin Sodium (Porcine) 5,000 unit 08/27/18 22:00 08/30/18 06:23 Heparin - SQ 5,000 unit TID [facility] Administration Hydralazine HCl 100 mg 08/19/18 22:00 08/30/18 06:23 Apresoline - PO 100 mg TID [facility] Administration Insulin Aspart 40 units 08/18/18 22:49 08/30/18 06:23 Novolog Mix 70/30 Vial SQ Not Given BIDAC [facility] Insulin Aspart 1 vial 08/21/18 18:39 08/30/18 12:06 Novolog Vial Sliding Scale - SQ 8 units ACHS [facility] Administration Protocol Insulin Detemir 25 units 08/18/18 22:50 08/29/18 22:03 Levemir Vial SQ 25 units HS [facility] Administration Isosorbide Mononitrate 60 mg 08/21/18 10:00 08/30/18 09:30 Imdur - PO 60 mg DAILY [facility] Administration Metolazone 5 mg 08/21/18 13:30 08/30/18 09:30 Zaroxolyn - PO 5 mg DAILY [facility] Administration Nifedipine 90 mg 08/13/18 10:00 08/30/18 09:30 Procardia Xl - PO 90 mg DAILY [facility] Administration Prednisone 5 mg 08/29/18 12:32 08/30/18 09:30 Deltasone - PO 5 mg DAILY [facility] Administration Rosuvastatin Calcium 5 mg 08/13/18 22:00 08/29/18 22:02 Crestor - PO 5 mg HS [facility] Administration Senna 2 tab 08/26/18 14:22 Senna - PO HS PRN CONSTIPATION Tamsulosin HCl 0.4 mg 08/13/18 08:30 08/30/18 07:54 Flomax - PO 0.4 mg DAILY@0830 [facility] Administration Impression 1. CKD 2. dyspnea 3. morbid obesity 4. DM 5. HTN 6. likely sleep apnea 7. chest pain 8. hyperkalemia Plan - stop losartan - cont lasix 40 po - can cont metolazone as well - will need to monitor renal function - check weights daily at rehab - taper off steroids, can cause an elevated of bun - discussed with medical team - cont senna and colace - avoid constipation - recommend weight loss
[2018-08-30 13:46] VITALS: BP 112/51; PULSE 94
--- NOTE | 2018-08-30 14:24 | DS ---
Physical Examination Vital Signs: Vital Signs Temperature 97.6 F 08/30/18 10:00 Pulse Rate 94 H 08/30/18 13:45 Respiratory Rate 20 08/30/18 10:00 Blood Pressure 112/51 L 08/30/18 13:45 O2 Sat by Pulse Oximetry (%) 100 08/30/18 13:45 Labs: CBC, BMP 08/29/18 05:59 08/30/18 05:02 Discharge Summary Reason For Visit: SHORTNESS OF BREATH, CHRONIC OBSTRUCTIVE PULMONARY Current Active Problems Abscess (Acute) Acute on chronic kidney failure (Acute) Aortic root dilatation (Acute) Atypical chest pain (Acute) CKD (chronic kidney disease) (Acute) COPD exacerbation (Acute) Chest pain (Acute) Depression (Acute) Diabetes (Acute) Knee pain (Acute) Pilonidal cyst (Acute) Subcutaneous abscess (Acute) Type 2 diabetes mellitus with hyperosmolarity without nonketotic hyperglycemic- hyperosmolar coma ([facility]) (Acute) Hospital Course: Patient is a 47 year old male with past medical history of DM, HTN, HLD, COPD ( on 4L NC), CKD, lymphedema, morbid obesity, obesity hypoventilation syndrome, pulmonary hypertension, and diastolic CHF presented to the ED due to worsening shortness of breath, chest pain and productive cough for 1 week. Pt has been on a course of IV solumedrol wc has now been chagned to PO prednisone and this will need to be tapered off in the next 10 days. Pt was followed by pulmonary and needs to wear BIPAP during hours of sleep. Pt was also followedd by cardio and renal. Pt was diuresised and lost about 30 lbs. Due to worsening bun creatinine lasix was changed to 40mg qd and this will need to be closely monitored along with monitoring his bun/creatinine Condition: Fair - Instructions Diet, Activity, Other Instructions: 2 gram sodium 2200 calorie diabetic and renal diet Needs follow up with slurry tank tender (Dr Martin) Disposition[facility] - Home Medications Comprehensive Discharge Medication List: Ambulatory Orders Aspirin 81 mg PO DAILY 08/13/18 Gabapentin [Neurontin -] 300 mg PO Q8H 08/13/18 Omeprazole 20 mg PO DAILY 08/13/18 Rosuvastatin [Crestor -] 5 mg PO HS 08/13/18 Aspirin [ASA -] 81 mg PO DAILY tab.chew 08/30/18 Budesonide/Formeterol Fumarate [SYMBICORT 160/4.5mcg -] 1 puff IH BID inhaler 08/30/18 Docusate Sodium [Colace -] 100 mg PO TID capsule 08/30/18 Ferrous Sulfate [Feosol] 325 mg PO TID ud 08/30/18 Furosemide [Lasix -] 40 mg PO DAILY tablet 08/30/18 Furosemide [Lasix] 40 mg PO DAILY #30 tablet 08/30/18 Gabapentin [Neurontin -] 300 mg PO TID capsule 08/30/18 Insulin (Levemir) [Levemir Vial] 25 units SQ HS units 08/30/18 Insulin (Novolog 70/30) [Novolog Mix 70/30 Vial -] 40 units SQ BIDAC units 01/08 Insulin Sliding Scale [Novolog Vial Sliding Scale -] 1 vial SQ ACHS units 08/30 Metolazone [Zaroxolyn -] 5 mg PO DAILY tablet 08/30/18 Nifedipine ER [Procardia XL -] 90 mg PO DAILY tab.er.24 08/30/18 Rosuvastatin [Crestor -] 5 mg PO HS tablet 08/30/18 Sennosides [Senna -] 2 tab PO HS PRN tablet 08/30/18 Tamsulosin HCl [Flomax -] 0.4 mg PO DAILY@0830 cap.er.24h 08/30/18 Tetracaine/Benzocaine/Butamben [Cetacaine Aguirre -] 1 spray TP DAILY bottle 01/08 predniSONE [Deltasone -] 10 mg PO DAILY tablet 08/30/18
[2018-08-30] MEDS ORDERED: INSULIN (NOVOLOG MIX 70/30) 100 UNITS/ML MDV SQ ONE (16:52)
== END 2018-08-30 18:46 | DRG 682 ==
LOC: JER 20:25 → JERBED 23:15 → J4W 08-13 21:41
PROVIDERS: ADMIT Internal Medicine; ATTEND Internal Medicine
DX: N17.9 Acute kidney failure, unspecified (principal); I50.33 Acute on chronic diastolic (congestive) heart failure; E11.00 Type 2 diabetes mellitus with hyperosmolarity without nonketotic hyperglycemic-hyperosmolar coma (NKHHC); J96.21 Acute and chronic respiratory failure with hypoxia; J96.22 Acute and chronic respiratory failure with hypercapnia; I13.0 Hypertensive heart and chronic kidney disease with heart failure and stage 1 through stage 4 chronic kidney disease, or unspecified chronic kidney disease; J44.1 Chronic obstructive pulmonary disease with (acute) exacerbation; E66.2 Morbid (severe) obesity with alveolar hypoventilation; Z68.45 Body mass index [BMI] 70 or greater, adult; J44.9 Chronic obstructive pulmonary disease, unspecified; Z99.81 Dependence on supplemental oxygen; E78.5 Hyperlipidemia, unspecified; Z79.4 Long term (current) use of insulin; I27.20 Pulmonary hypertension, unspecified; I27.81 Cor pulmonale (chronic); E11.22 Type 2 diabetes mellitus with diabetic chronic kidney disease; N18.9 Chronic kidney disease, unspecified; E87.5 Hyperkalemia; I77.810 Thoracic aortic ectasia; L05.91 Pilonidal cyst without abscess; F32.9 Major depressive disorder, single episode, unspecified; R07.89 Other chest pain
CPT/HCPCS: 36415; 36600; 71045-TC-FY; 71046-TC-FY; 76775-TC; 80048; 80053; 80061; 81003; 82436; 82550; 82553; 82565; 82570; 82803; 82962; 83036; 83721; 83735; 83880; 84100; 84133; 84156; 84300; 84443; 84484; 85025; 85027; 85379; 85610; 85651; 85730; 86140; 87040; 87086; 93005; 93010; 93306-TC; 93970-TC; 94640; 94660; 97116-GP; 97161-GP; 99285-25; J1644

== ENCOUNTER 2024-07-19 15:50 | Inpatient (IN) | payer BC, OTHER ==
[2024-07-19 17:13] LABS: ABSOLUTE IMMATURE GRANULOCYTES 0.04 x10^3/uL (0.0-0.031); BASOPHILS # 0.02 x10^3/uL (0.01-0.08); EOSINOPHIL % 2.3 % (0.8-7.0); EOSINOPHILS # 0.13 x10^3/uL (0.04-0.54); HEMATOCRIT 40.3 % (40.1-51.0); MCHC 29.8 g/dl (32.3-36.5); MEAN CELL VOLUME 93.1 fl (79.0-92.2); MEAN PLT VOLUME 8.8 fl (9.4-12.4); MONOCYTE # 0.54 x10^3/uL (0.30-0.82); MONOCYTE % 9.5 % (5.3-12.2); PLATELET COUNT 205 x10^3/uL (163-337); RDW 15.8 % (12.2-16.1)
[2024-07-19 17:21] LABS: INR 1.19 (0.83-1.09)
[2024-07-19 17:23] LABS: ACTIVATED PTT 31.9 SECONDS (25.2-36.5)
[2024-07-19 17:24] LABS: VENOUS BASE EXCESS -5.5 mmol/L (-2-2); VENOUS O2 SATURATION 87.6 % (70-80); VENOUS PH 7.373 (7.310-7.410)
[2024-07-19 17:37] LABS: POTASSIUM 5.3 mmol/L (3.5-5.1)
[2024-07-19 17:38] LABS: CALCIUM 8.9 mg/dL (8.5-10.1)
[2024-07-19 17:39] LABS: BLOOD UREA NITROGEN 60.8 mg/dL (7-18)
[2024-07-19 17:42] LABS: CREATININE 6.6 mg/dL (0.55-1.3)
[2024-07-19 17:44] LABS: BILIRUBIN,TOTAL 2.1 mg/dL (0.2-1); TOT PROT 6.2 g/dl (6.4-8.2)
[2024-07-19 17:47] LABS: N-TERMINAL BNP 13958.6 pg/ml (5-125)
[2024-07-19] MEDS ORDERED: FUROSEMIDE 40 MG/4 ML INJECTABLE VIAL ONE (18:47)
[2024-07-19] MEDS: FUROSEMIDE 40 MG/4 ML INJECTABLE VIAL IVPUSH ONE (18:55)
[2024-07-19] MEDS ORDERED: ACETAMINOPHEN 325 MG TABLET (FP) PO PRN (20:39)
[2024-07-19] MEDS ORDERED: DOCUSATE SODIUM 100 MG CAPSULE (FP) PO PRN (20:39)
[2024-07-20 01:47] LABS: POTASSIUM 5.1 mmol/L (3.5-5.1)
[2024-07-20 01:50] LABS: CALCIUM 9.8 mg/dL (8.5-10.1)
[2024-07-20 01:51] LABS: BLOOD UREA NITROGEN 65.9 mg/dL (7-18)
[2024-07-20 01:54] LABS: CREATININE 7.3 mg/dL (0.55-1.3)
[2024-07-20] MEDS: HEPARIN NA (PORCINE) 5,000 UNITS/ML 1ML VIAL SQ SCH (06:16)
[2024-07-20 06:42] LABS: ABSOLUTE IMMATURE GRANULOCYTES 0.02 x10^3/uL (0.0-0.031); BASOPHILS # 0.03 x10^3/uL (0.01-0.08); EOSINOPHIL % 3.7 % (0.8-7.0); HEMATOCRIT 38.8 % (40.1-51.0); HEMOGLOBIN 11.5 g/dL (13.7-17.5); MCHC 29.6 g/dl (32.3-36.5); MEAN CELL VOLUME 94.2 fl (79.0-92.2); MEAN PLT VOLUME 9.8 fl (9.4-12.4); MONOCYTE # 0.59 x10^3/uL (0.30-0.82); PLATELET COUNT 196 x10^3/uL (163-337); RDW 15.8 % (12.2-16.1)
[2024-07-20 06:55] LABS: EPI CELLS 1 /uL (0-25.1); HYALINE CASTS 0 /uL (0-3.1); PH,URINE 6.5 (5.0-8.0); URINE APPEARANCE CLEAR; URINE BACTERIA 2 /uL (0-1359); URINE BILIRUBIN NEGATIVE (NEGATIVE); URINE COLOR YELLOW; URINE GLUCOSE (UA) NEGATIVE (NEGATIVE); URINE KETONE NEGATIVE (NEGATIVE); URINE LEUK ESTERASE NEGATIVE (NEGATIVE); URINE NITRITE NEGATIVE (NEGATIVE); URINE PROTEIN 1+ (NEGATIVE); URINE RBC 5 /uL (0-23.9); URINE UROBILINOGEN 0.2 mg/dL (0.2-1.0); URINE WBC 1 /uL (0-25.8)
[2024-07-20 07:06] LABS: POTASSIUM 4.6 mmol/L (3.5-5.1)
[2024-07-20 07:07] LABS: BLOOD UREA NITROGEN 70.7 mg/dL (7-18); CALCIUM 10.1 mg/dL (8.5-10.1)
[2024-07-20 07:08] LABS: MAGNESIUM 1.9 mg/dL (1.8-2.4)
[2024-07-20 07:11] LABS: CREATININE 7.2 mg/dL (0.55-1.3); PHOSPHOROUS 6.5 mg/dL (2.5-4.9)
[2024-07-20] MEDS: SODIUM BICARBONATE 650 MG TABLET PO SCH (10:07)
[2024-07-20] MEDS: CARVEDILOL 6.25 MG TABLET (FP) PO SCH (10:07)
[2024-07-20] MEDS: PANTOPRAZOLE 20 MG TABLET PO SCH (10:08)
[2024-07-20] MEDS: TAMSULOSIN HCL 0.4 MG CAP PO SCH (10:08)
[2024-07-20] MEDS: NIFEdipine E.R. 90 MG TABLET PO SCH (11:25)
[2024-07-20] MEDS ORDERED: SODIUM CHLORIDE 250 ML IV PRN (14:35)
[2024-07-20 15:26] LABS: HEPATITIS B SURF AG NON-MATERN NON-REACTIVE (NONREACTIVE)
[2024-07-20 15:55] LABS: HCV DIAGNOSTIC IN-HOUSE W/RFLX NON-REACTIVE (NONREACTIVE)
[2024-07-20] MEDS: SENNOSIDES 8.6MG TABLET (FP) PO SCH (21:45)
[2024-07-20] MEDS: DOCUSATE SODIUM 100 MG CAPSULE (FP) PO SCH (21:45)
[2024-07-20] MEDS: GABAPENTIN 300 MG CAPSULE PO SCH (21:45)
[2024-07-20] MEDS: INSULIN ASPART SLIDING SCALE (NOVOLOG) 1 VIAL SQ SCH (21:49)
[2024-07-20] MEDS: INSULIN GLARGINE (LANTUS) 100 UNITS/ML UNITS SQ SCH (21:49)
[2024-07-20] MEDS ORDERED: INSULIN (LEVEMIR) 100 UNITS/ML UNITS SQ SCH (22:00)
[2024-07-20] MEDS: BUDESONIDE/FORMETEROL FUMARATE 160/4.5 mcg INHALER IH SCH (22:46)
[2024-07-20] MEDS: ROSUVASTATIN CA 5 MG TABLET PO SCH (22:46)
[2024-07-21 06:37] LABS: ABSOLUTE IMMATURE GRANULOCYTES 0.04 x10^3/uL (0.0-0.031); BASOPHILS # 0.02 x10^3/uL (0.01-0.08); EOSINOPHIL % 3.6 % (0.8-7.0); EOSINOPHILS # 0.21 x10^3/uL (0.04-0.54); HEMATOCRIT 37.8 % (40.1-51.0); HEMOGLOBIN 11.5 g/dL (13.7-17.5); MCHC 30.4 g/dl (32.3-36.5); MEAN CELL VOLUME 92.2 fl (79.0-92.2); MEAN PLT VOLUME 9.1 fl (9.4-12.4); MONOCYTE # 0.64 x10^3/uL (0.30-0.82); PLATELET COUNT 198 x10^3/uL (163-337); RDW 15.7 % (12.2-16.1)
[2024-07-21 06:54] LABS: POTASSIUM 4.4 mmol/L (3.5-5.1)
[2024-07-21 06:59] LABS: CALCIUM 9.8 mg/dL (8.5-10.1)
[2024-07-21 07:00] LABS: BLOOD UREA NITROGEN 63.3 mg/dL (7-18)
[2024-07-21 07:03] LABS: CREATININE 6.7 mg/dL (0.55-1.3)
[2024-07-21 07:04] LABS: BILIRUBIN,TOTAL 1.8 mg/dL (0.2-1)
[2024-07-21 07:05] LABS: TOT PROT 6.1 g/dl (6.4-8.2)
[2024-07-21] MEDS ORDERED: SODIUM CHLORIDE 250 ML IV PRN (09:55)
[2024-07-21] MEDS ORDERED: METOLAZONE 2.5 MG TABLET (FP) PO SCH (10:00)
[2024-07-21] MEDS: ASPIRIN 81 MG CHEWABLE TABLETS PO SCH (10:14)
[2024-07-21] MEDS: FUROSEMIDE 40 MG/4 ML INJECTABLE VIAL IVPUSH SCH ×2 (10:14→10:15)
[2024-07-21] MEDS: SIMETHICONE 80 MG TAB.CHEW (FP) PO ONE (23:47)
[2024-07-22 07:22] LABS: ABSOLUTE IMMATURE GRANULOCYTES 0.03 x10^3/uL (0.0-0.031); BASOPHILS # 0.02 x10^3/uL (0.01-0.08); EOSINOPHIL % 4.2 % (0.8-7.0); EOSINOPHILS # 0.21 x10^3/uL (0.04-0.54); HEMATOCRIT 37.7 % (40.1-51.0); HEMOGLOBIN 11.2 g/dL (13.7-17.5); MCHC 29.7 g/dl (32.3-36.5); MEAN CELL VOLUME 93.3 fl (79.0-92.2); MEAN PLT VOLUME 10.2 fl (9.4-12.4); MONOCYTE # 0.61 x10^3/uL (0.30-0.82); MONOCYTE % 12.1 % (5.3-12.2); PLATELET COUNT 204 x10^3/uL (163-337); RDW 15.8 % (12.2-16.1)
[2024-07-22 07:39] LABS: POTASSIUM 4.5 mmol/L (3.5-5.1)
[2024-07-22 07:43] LABS: CALCIUM 9.7 mg/dL (8.5-10.1)
[2024-07-22 07:44] LABS: ALBUMIN 3.2 g/dl (3.4-5.0); BLOOD UREA NITROGEN 68.3 mg/dL (7-18)
[2024-07-22 07:47] LABS: CREATININE 7.4 mg/dL (0.55-1.3)
[2024-07-22 07:48] LABS: BILIRUBIN,TOTAL 1.6 mg/dL (0.2-1)
[2024-07-22 07:49] LABS: TOT PROT 6.4 g/dl (6.4-8.2)
[2024-07-22] MEDS: FLUTICASONE PROP 0.05% 16 GM NASAL SPRAY NS SCH (19:21)
[2024-07-23 09:18] LABS: ABSOLUTE IMMATURE GRANULOCYTES 0.03 x10^3/uL (0.0-0.031); BASOPHILS # 0.02 x10^3/uL (0.01-0.08); EOSINOPHIL % 4.2 % (0.8-7.0); EOSINOPHILS # 0.23 x10^3/uL (0.04-0.54); HEMATOCRIT 41.8 % (40.1-51.0); HEMOGLOBIN 12.1 g/dL (13.7-17.5); MCHC 28.9 g/dl (32.3-36.5); MEAN PLT VOLUME 9.6 fl (9.4-12.4); MONOCYTE # 0.66 x10^3/uL (0.30-0.82); MONOCYTE % 12.1 % (5.3-12.2); PLATELET COUNT 222 x10^3/uL (163-337); RDW 15.4 % (12.2-16.1)
[2024-07-23 10:04] LABS: POTASSIUM 4.8 mmol/L (3.5-5.1)
[2024-07-23 10:21] LABS: CALCIUM 9.6 mg/dL (8.5-10.1)
[2024-07-23 10:22] LABS: ALBUMIN 3.4 g/dl (3.4-5.0); BILIRUBIN,TOTAL 1.7 mg/dL (0.2-1); BLOOD UREA NITROGEN 48.1 mg/dL (7-18)
[2024-07-23 10:23] LABS: TOT PROT 6.9 g/dl (6.4-8.2)
[2024-07-23] MEDS: SODIUM CHLORIDE NASAL SPRAY 44 ML BOTTLE NS PRN (15:31)
[2024-07-24 08:55] LABS: ABSOLUTE IMMATURE GRANULOCYTES 0.02 x10^3/uL (0.0-0.031); BASOPHILS # 0.02 x10^3/uL (0.01-0.08); EOSINOPHIL % 3.7 % (0.8-7.0); EOSINOPHILS # 0.18 x10^3/uL (0.04-0.54); HEMATOCRIT 36.1 % (40.1-51.0); HEMOGLOBIN 10.7 g/dL (13.7-17.5); MCHC 29.6 g/dl (32.3-36.5); MEAN CELL VOLUME 93.5 fl (79.0-92.2); MEAN PLT VOLUME 9.5 fl (9.4-12.4); MONOCYTE # 0.64 x10^3/uL (0.30-0.82); PLATELET COUNT 178 x10^3/uL (163-337); RDW 15.8 % (12.2-16.1)
[2024-07-24 09:30] LABS: POTASSIUM 4.3 mmol/L (3.5-5.1)
[2024-07-24 10:13] LABS: BLOOD UREA NITROGEN 50.4 mg/dL (7-18)
[2024-07-24 10:16] LABS: BILIRUBIN,TOTAL 1.3 mg/dL (0.2-1); CREATININE 6.4 mg/dL (0.55-1.3)
[2024-07-24] MEDS ORDERED: SODIUM CHLORIDE 250 ML IV PRN (12:38)
[2024-07-25 07:00] LABS: HEMATOCRIT 36.9 % (40.1-51.0); HEMOGLOBIN 10.7 g/dL (13.7-17.5); MEAN CELL VOLUME 93.4 fl (79.0-92.2); MEAN PLT VOLUME 9.2 fl (9.4-12.4); PLATELET COUNT 179 x10^3/uL (163-337); RDW 15.8 % (12.2-16.1)
[2024-07-25 10:06] LABS: POTASSIUM 4.3 mmol/L (3.5-5.1)
[2024-07-25 10:07] LABS: CALCIUM 9.2 mg/dL (8.5-10.1)
[2024-07-25 10:08] LABS: BLOOD UREA NITROGEN 50.5 mg/dL (7-18)
[2024-07-25 10:11] LABS: CREATININE 6.2 mg/dL (0.55-1.3)
[2024-07-25] MEDS: EPOETIN ALFA-EPBX 4,000 UNIT/ML VIAL IVPUSH ONE (11:09)
[2024-07-26] MEDS ORDERED: ACETAMINOPHEN 500 MG TABLET (FP) PO PRN (15:02)
[2024-07-26] MEDS ORDERED: SODIUM CHLORIDE NASAL SPRAY 44 ML BOTTLE NS PRN (15:02)
[2024-07-26] MEDS ORDERED: DOCUSATE SODIUM 100 MG CAPSULE (FP) PO PRN (15:02)
[2024-07-26] MEDS: INSULIN ASPART SLIDING SCALE (NOVOLOG) 1 VIAL SQ SCH (19:06)
[2024-07-26] MEDS: HEPARIN NA (PORCINE) 5,000 UNITS/ML 1ML VIAL SQ SCH (22:43)
[2024-07-26] MEDS: SENNOSIDES 8.6MG TABLET (FP) PO SCH (22:44)
[2024-07-26] MEDS: DOCUSATE SODIUM 100 MG CAPSULE (FP) PO SCH (22:44)
[2024-07-26] MEDS: ROSUVASTATIN CA 5 MG TABLET PO SCH (22:45)
[2024-07-26] MEDS: GABAPENTIN 300 MG CAPSULE PO SCH (22:45)
[2024-07-26] MEDS: CARVEDILOL 6.25 MG TABLET (FP) PO SCH (22:45)
[2024-07-26] MEDS: BUDESONIDE/FORMETEROL FUMARATE 160/4.5 mcg INHALER IH SCH (22:50)
[2024-07-26] MEDS: SODIUM BICARBONATE 650 MG TABLET PO SCH (22:54)
[2024-07-27 08:35] LABS: ABSOLUTE IMMATURE GRANULOCYTES 0.03 x10^3/uL (0.0-0.031); BASOPHILS # 0.02 x10^3/uL (0.01-0.08); EOSINOPHIL % 3.6 % (0.8-7.0); EOSINOPHILS # 0.18 x10^3/uL (0.04-0.54); HEMATOCRIT 38.6 % (40.1-51.0); HEMOGLOBIN 11.3 g/dL (13.7-17.5); MCHC 29.3 g/dl (32.3-36.5); MEAN CELL VOLUME 93.5 fl (79.0-92.2); MEAN PLT VOLUME 8.9 fl (9.4-12.4); MONOCYTE # 0.61 x10^3/uL (0.30-0.82); MONOCYTE % 12.3 % (5.3-12.2); PLATELET COUNT 180 x10^3/uL (163-337); RDW 15.8 % (12.2-16.1)
[2024-07-27 09:45] LABS: POTASSIUM 4.3 mmol/L (3.5-5.1)
[2024-07-27 10:01] LABS: ALBUMIN 3.1 g/dl (3.4-5.0); BLOOD UREA NITROGEN 48.8 mg/dL (7-18)
[2024-07-27 10:04] LABS: CALCIUM 9.1 mg/dL (8.5-10.1)
[2024-07-27 10:08] LABS: CREATININE 6.3 mg/dL (0.55-1.3)
[2024-07-27 10:09] LABS: TOT PROT 6.1 g/dl (6.4-8.2)
[2024-07-27 10:11] LABS: BILIRUBIN,TOTAL 1.3 mg/dL (0.2-1)
[2024-07-27] MEDS: TAMSULOSIN HCL 0.4 MG CAP PO SCH (10:36)
[2024-07-27] MEDS: NIFEdipine E.R. 90 MG TABLET PO SCH (11:05)
[2024-07-27] MEDS: PANTOPRAZOLE 20 MG TABLET PO SCH (11:05)
[2024-07-27] MEDS: ASPIRIN 81 MG CHEWABLE TABLETS PO SCH (11:05)
[2024-07-27] MEDS: FUROSEMIDE 40 MG/4 ML INJECTABLE VIAL IVPUSH SCH (11:06)
[2024-07-27] MEDS ORDERED: MIDAZOLAM HCL 2 MG/2 ML SINGLE DOSE VIAL ONE (15:19)
[2024-07-27] MEDS: FLUTICASONE PROP 0.05% 16 GM NASAL SPRAY NS SCH (15:24)
[2024-07-27] MEDS ORDERED: KETAMINE HCL 200 MG/20 ML VIAL ONE (16:21)
[2024-07-27] MEDS ORDERED: DEXAMETHASONE SOD PHOSPHATE 4 MG/1 ML VIAL ONE (16:43)
[2024-07-27] MEDS ORDERED: ONDANSETRON 4 MG/2 ML VIAL ONE (16:43)
[2024-07-27] MEDS ORDERED: ALBUTEROL SO4 0.083% IH SOL 2.5 MG/3 ML VIAL.NEB. NEB ONE (16:50)
[2024-07-27] MEDS: LIDOCAINE HCL 1%, 10 MG/ML (20ML VIAL) INF ONE (16:52)
[2024-07-27] MEDS ORDERED: PROPOFOL 20 ML ONE (17:01)
[2024-07-27] MEDS ORDERED: PHENYLEPHRINE HCL 10 MG/1 ML SINGLE DOSE VIAL ONE (17:07)
[2024-07-27] MEDS ORDERED: oxyCODONE HCL 5 MG TABLET PO PRN (17:41)
[2024-07-27] MEDS ORDERED: ONDANSETRON 4 MG/2 ML VIAL IVPUSH PRN (17:46)
[2024-07-27] MEDS ORDERED: SODIUM CHLORIDE 250 ML IV PRN (18:39)
[2024-07-27] MEDS: DOCUSATE SODIUM 100 MG CAPSULE (FP) PO PRN (22:02)
[2024-07-27] MEDS: SENNOSIDES 8.6MG TABLET (FP) PO SCH (22:02)
[2024-07-27] MEDS: SODIUM BICARBONATE 650 MG TABLET PO SCH (22:03)
[2024-07-27] MEDS: HEPARIN NA (PORCINE) 5,000 UNITS/ML 1ML VIAL SQ SCH (22:03)
[2024-07-27] MEDS: ROSUVASTATIN CA 5 MG TABLET PO SCH (22:03)
[2024-07-27] MEDS: GABAPENTIN 300 MG CAPSULE PO SCH (22:04)
[2024-07-27] MEDS: BUDESONIDE/FORMETEROL FUMARATE 160/4.5 mcg INHALER IH SCH (22:04)
[2024-07-27] MEDS: INSULIN ASPART SLIDING SCALE (NOVOLOG) 1 VIAL SQ SCH (22:05)
[2024-07-27] MEDS: CARVEDILOL 6.25 MG TABLET (FP) PO SCH (22:06)
[2024-07-27] MEDS: DOCUSATE SODIUM 100 MG CAPSULE (FP) PO SCH (22:13)
[2024-07-28] MEDS: ONDANSETRON 4 MG/2 ML VIAL IVPUSH ONE (07:03)
[2024-07-28] MEDS: FLUTICASONE PROP 0.05% 16 GM NASAL SPRAY NS SCH (11:09)
[2024-07-28] MEDS: ASPIRIN 81 MG CHEWABLE TABLETS PO SCH (12:28)
[2024-07-28] MEDS: NIFEdipine E.R. 90 MG TABLET PO SCH (12:29)
[2024-07-28] MEDS: PANTOPRAZOLE 20 MG TABLET PO SCH (12:29)
[2024-07-28] MEDS: FUROSEMIDE 40 MG/4 ML INJECTABLE VIAL IVPUSH SCH (12:29)
[2024-07-28] MEDS: SODIUM CHLORIDE NASAL SPRAY 44 ML BOTTLE NS PRN (12:30)
[2024-07-28] MEDS: SODIUM CHLORIDE 1,000 ML IV SCH (12:31)
[2024-07-28] MEDS: TAMSULOSIN HCL 0.4 MG CAP PO SCH (12:31)
[2024-07-28] MEDS ORDERED: SODIUM CHLORIDE 250 ML IV PRN (14:19)
[2024-07-28] MEDS: LACTULOSE 20 GM/30 ML UDC (FOR ORAL USE ONLY) PO ONE (21:15)
[2024-07-29] MEDS: ONDANSETRON 4 MG/2 ML VIAL IVPUSH ONE (01:28)
[2024-07-29 08:20] LABS: HEMATOCRIT 38.9 % (40.1-51.0); HEMOGLOBIN 11.2 g/dL (13.7-17.5); MCHC 28.8 g/dl (32.3-36.5); MEAN CELL VOLUME 95.3 fl (79.0-92.2); MEAN PLT VOLUME 9.3 fl (9.4-12.4); PLATELET COUNT 200 x10^3/uL (163-337); RDW 15.8 % (12.2-16.1)
[2024-07-29 08:26] LABS: ABSOLUTE IMMATURE GRANULOCYTES 0.02 x10^3/uL (0.0-0.031); BASOPHILS # 0.02 x10^3/uL (0.01-0.08); EOSINOPHIL % 0.6 % (0.8-7.0); EOSINOPHILS # 0.04 x10^3/uL (0.04-0.54); HEMOGLOBIN 11.2 g/dL (13.7-17.5); MCHC 28.7 g/dl (32.3-36.5); MEAN CELL VOLUME 95.1 fl (79.0-92.2); MEAN PLT VOLUME 9.2 fl (9.4-12.4); MONOCYTE # 0.58 x10^3/uL (0.30-0.82); MONOCYTE % 8.7 % (5.3-12.2); PLATELET COUNT 207 x10^3/uL (163-337); RDW 15.9 % (12.2-16.1)
[2024-07-29 08:46] LABS: POTASSIUM 4.9 mmol/L (3.5-5.1)
[2024-07-29 08:56] LABS: ALBUMIN 3.3 g/dl (3.4-5.0); BLOOD UREA NITROGEN 54.4 mg/dL (7-18); CALCIUM 8.7 mg/dL (8.5-10.1)
[2024-07-29 08:57] LABS: CREATININE 6.9 mg/dL (0.55-1.3)
[2024-07-29 08:58] LABS: BILIRUBIN,TOTAL 1.1 mg/dL (0.2-1); TOT PROT 6.8 g/dl (6.4-8.2)
[2024-07-30 07:23] LABS: ABSOLUTE IMMATURE GRANULOCYTES 0.03 x10^3/uL (0.0-0.031); BASOPHILS # 0.02 x10^3/uL (0.01-0.08); EOSINOPHIL % 1.6 % (0.8-7.0); EOSINOPHILS # 0.09 x10^3/uL (0.04-0.54); HEMATOCRIT 38.5 % (40.1-51.0); HEMOGLOBIN 11.1 g/dL (13.7-17.5); MCHC 28.8 g/dl (32.3-36.5); MEAN CELL VOLUME 94.6 fl (79.0-92.2); MONOCYTE # 0.64 x10^3/uL (0.30-0.82); MONOCYTE % 11.6 % (5.3-12.2); PLATELET COUNT 172 x10^3/uL (163-337); RDW 15.9 % (12.2-16.1)
[2024-07-30 08:00] LABS: POTASSIUM 4.4 mmol/L (3.5-5.1)
[2024-07-30 08:13] LABS: ALBUMIN 3.3 g/dl (3.4-5.0); BLOOD UREA NITROGEN 47.2 mg/dL (7-18); CALCIUM 8.7 mg/dL (8.5-10.1)
[2024-07-30 08:16] LABS: CREATININE 6.1 mg/dL (0.55-1.3)
[2024-07-30 08:18] LABS: BILIRUBIN,TOTAL 1.4 mg/dL (0.2-1); TOT PROT 6.6 g/dl (6.4-8.2)
[2024-07-31] MEDS ORDERED: SODIUM CHLORIDE 250 ML IV PRN (20:36)
[2024-08-01] MEDS: SODIUM BICARBONATE 325 MG TABLET PO SCH (09:14)
[2024-08-02 12:18] VITALS: BMI 52.2
[2024-08-02] MEDS ORDERED: MIDAZOLAM HCL 2 MG/2 ML SINGLE DOSE VIAL ONE (15:20)
[2024-08-02] MEDS ORDERED: ceFAZolin SODIUM 1 GM VIAL ONE (15:20)
[2024-08-02] MEDS: MIDAZOLAM HCL 2 MG/2 ML SINGLE DOSE VIAL IVPUSH ONE (15:24)
[2024-08-02] MEDS: ceFAZolin SODIUM 1 GM VIAL IVPB ONE (15:29)
[2024-08-02] MEDS ORDERED: HEPARIN NA (PORCINE) 5,000 UNITS/ML 1ML VIAL ONE (15:33)
[2024-08-02 22:24] VITALS: TEMP 97.7
[2024-08-03] MEDS: ACETAMINOPHEN 500 MG TABLET (FP) PO PRN (02:21)
[2024-08-03] MEDS ORDERED: oxyCODONE HCL 5 MG TABLET PO PRN (07:46)
[2024-08-03] MEDS ORDERED: SODIUM CHLORIDE 250 ML IV PRN (09:28)
[2024-08-03] MEDS: EPOETIN ALFA-EPBX 10,000 UNIT/ML VIAL IVPUSH ONE (10:34)
[2024-08-03 13:42] VITALS: BP 128/80; PULSE 69; RESP 22
== END 2024-08-03 14:50 | disposition home health service (06) | DRG 252 ==
LOC: JER 15:50 → JERBED 18:14 → J4S 20:29 → J7W 07-26 14:05
PROVIDERS: ADMIT Internal Medicine; ATTEND Internal Medicine
PROC: 057Y3ZZ Dilation of Upper Vein, Percutaneous Approach (ICD-10-PCS; principal; 2024-07-29)
PROC: 0JH63XZ Insertion of Tunneled Vascular Access Device into Chest Subcutaneous Tissue and Fascia, Percutaneous Approach (ICD-10-PCS; 2024-08-02)
PROC: 05HN33Z Insertion of Infusion Device into Left Internal Jugular Vein, Percutaneous Approach (ICD-10-PCS; 2024-08-02)
PROC: B544ZZA Ultrasonography of Left Jugular Veins, Guidance (ICD-10-PCS; 2024-08-02)
PROC: 5A1D70Z Performance of Urinary Filtration, Intermittent, Less than 6 Hours Per Day (ICD-10-PCS; 2024-08-03)
DX: I13.2 Hypertensive heart and chronic kidney disease with heart failure and with stage 5 chronic kidney disease, or end stage renal disease (principal); I50.33 Acute on chronic diastolic (congestive) heart failure; J96.21 Acute and chronic respiratory failure with hypoxia; N18.6 End stage renal disease; Z68.43 Body mass index [BMI] 50.0-59.9, adult; T82.41XA Breakdown (mechanical) of vascular dialysis catheter, initial encounter; I87.1 Compression of vein; E66.01 Morbid (severe) obesity due to excess calories; E78.00 Pure hypercholesterolemia, unspecified; F41.8 Other specified anxiety disorders; G47.33 Obstructive sleep apnea (adult) (pediatric); E78.5 Hyperlipidemia, unspecified; I27.20 Pulmonary hypertension, unspecified; J44.9 Chronic obstructive pulmonary disease, unspecified; E87.70 Fluid overload, unspecified; E11.22 Type 2 diabetes mellitus with diabetic chronic kidney disease; Z99.2 Dependence on renal dialysis; Z99.81 Dependence on supplemental oxygen; Y83.8 Other surgical procedures as the cause of abnormal reaction of the patient, or of later complication, without mention of misadventure at the time of the procedure
CPT/HCPCS: 0241U-QW; 36415; 36558; 71045-TC-FY; 76000-TC-FY; 80048; 80053; 80061; 81003; 82803; 82962; 83036; 83605; 83735; 83880; 84100; 84132; 84443; 84484; 85025; 85027; 85610; 85730; 86803; 86850; 86900; 86901; 87340; 93005; 93010; 93306-TC; 93990-TC; 94660; 94760; 94761; 97116-GP; 99291; J1644; Q5106

== ENCOUNTER 2024-08-22 22:39 | Observation (INO) | payer BC, OTHER ==
[2024-08-22 23:06] VITALS: BMI 50.4
[2024-08-23 00:24] LABS: ABSOLUTE IMMATURE GRANULOCYTES 0.02 x10^3/uL (0.0-0.031); BASOPHILS # 0.02 x10^3/uL (0.01-0.08); EOSINOPHIL % 0.3 % (0.8-7.0); EOSINOPHILS # 0.02 x10^3/uL (0.04-0.54); HEMATOCRIT 44.2 % (40.1-51.0); HEMOGLOBIN 12.6 g/dL (13.7-17.5); MCHC 28.5 g/dl (32.3-36.5); MEAN CELL VOLUME 94.2 fl (79.0-92.2); MONOCYTE # 0.38 x10^3/uL (0.30-0.82); MONOCYTE % 6.4 % (5.3-12.2); PLATELET COUNT 180 x10^3/uL (163-337); RDW 20.5 % (12.2-16.1); VENOUS BASE EXCESS 0.5 mmol/L (-2-2); VENOUS O2 SATURATION 55.8 % (70-80); VENOUS PCO2 46.7 mmHg (38-52); VENOUS PH 7.368 (7.310-7.410)
[2024-08-23 00:33] LABS: INR 1.23 (0.83-1.09); PROTHROMBIN TIME (PATIENT) 13.4 SEC (9.7-13.0)
[2024-08-23 00:35] LABS: ACTIVATED PTT 33.2 SECONDS (25.2-36.5)
[2024-08-23 01:08] LABS: POTASSIUM 4.5 mmol/L (3.5-5.1)
[2024-08-23 01:10] LABS: ALBUMIN 3.6 g/dl (3.4-5.0); BLOOD UREA NITROGEN 29.5 mg/dL (7-18); CALCIUM 9.1 mg/dL (8.5-10.1)
[2024-08-23 01:14] LABS: CREATININE 4.7 mg/dL (0.55-1.3)
[2024-08-23 01:15] LABS: BILIRUBIN,TOTAL 3.1 mg/dL (0.2-1); TOT PROT 7.2 g/dl (6.4-8.2)
[2024-08-23 01:34] LABS: LACTIC ACID 3.8 mmol/L (0.4-2.0)
[2024-08-23] MEDS: SODIUM CHLORIDE 0.9% 500 ML INFUS.BAG IV ONE (02:46)
[2024-08-23] MEDS ORDERED: MIDODRINE HCL 5 MG TABLET ONE ×3 (05:15→17:49)
[2024-08-23] MEDS ORDERED: HEPARIN NA (PORCINE) 5,000 UNITS/ML 1ML VIAL ONE ×2 (05:15→16:34)
[2024-08-23] MEDS: MIDODRINE HCL 5 MG TABLET PO SCH (05:23)
[2024-08-23] MEDS: HEPARIN NA (PORCINE) 5,000 UNITS/ML 1ML VIAL SQ SCH (05:25)
[2024-08-23 06:20] LABS: ARTERIAL BLD GAS O2 SATURATION 53.4 % (95-98); ARTERIAL BLOOD GAS BASE EXCESS 0.2 mmol/L (-2-2); ARTERIAL BLOOD GAS pH 7.414 (7.350-7.450)
[2024-08-23 06:22] LABS: ARTERIAL BLOOD GAS PO2 27.9 mmHg (80-100)
[2024-08-23 06:23] LABS: ALLENS TEST POSITIVE
[2024-08-23 06:37] LABS: POTASSIUM 4.2 mmol/L (3.5-5.1)
[2024-08-23 06:41] LABS: ABSOLUTE IMMATURE GRANULOCYTES 0.02 x10^3/uL (0.0-0.031); ALBUMIN 3.2 g/dl (3.4-5.0); BASOPHILS # 0.02 x10^3/uL (0.01-0.08); BLOOD UREA NITROGEN 33.8 mg/dL (7-18); CALCIUM 9.3 mg/dL (8.5-10.1); EOSINOPHIL % 1.1 % (0.8-7.0); EOSINOPHILS # 0.06 x10^3/uL (0.04-0.54); HEMATOCRIT 39.9 % (40.1-51.0); HEMOGLOBIN 11.6 g/dL (13.7-17.5); MAGNESIUM 2.2 mg/dL (1.8-2.4); MCHC 29.1 g/dl (32.3-36.5); MEAN CELL VOLUME 93.7 fl (79.0-92.2); MEAN PLT VOLUME 9.6 fl (9.4-12.4); MONOCYTE # 0.46 x10^3/uL (0.30-0.82); MONOCYTE % 8.3 % (5.3-12.2); PLATELET COUNT 165 x10^3/uL (163-337); RDW 20.5 % (12.2-16.1)
[2024-08-23 06:44] LABS: CREATININE 5.1 mg/dL (0.55-1.3); PHOSPHOROUS 5.1 mg/dL (2.5-4.9)
[2024-08-23 06:45] LABS: BILIRUBIN,TOTAL 2.3 mg/dL (0.2-1); TOT PROT 6.4 g/dl (6.4-8.2)
[2024-08-23 06:58] LABS: LACTIC ACID 2.3 mmol/L (0.4-2.0)
[2024-08-23] MEDS: INSULIN ASPART SLIDING SCALE (NOVOLOG) 1 VIAL SQ SCH ×2 (08:00→17:45)
[2024-08-23] MEDS: PANTOPRAZOLE 40 MG TABLET PO SCH (13:00)
[2024-08-23] MEDS: ASPIRIN 81 MG CHEWABLE TABLETS PO SCH (13:00)
[2024-08-23] MEDS ORDERED: PANTOPRAZOLE 40 MG TABLET PO ONE (13:14)
[2024-08-23] MEDS ORDERED: ASPIRIN 81 MG CHEWABLE TABLETS ONE (13:14)
[2024-08-23] MEDS ORDERED: SODIUM CHLORIDE 250 ML IV PRN (14:45)
[2024-08-23] MEDS ORDERED: GABAPENTIN 300 MG CAPSULE ONE (16:34)
[2024-08-23] MEDS: GABAPENTIN 300 MG CAPSULE PO SCH (16:40)
[2024-08-23] MEDS: SODIUM BICARBONATE 325 MG TABLET PO SCH (17:53)
[2024-08-23] MEDS: INSULIN GLARGINE (LANTUS) 100 UNITS/ML UNITS SQ SCH (21:41)
[2024-08-23] MEDS: CARVEDILOL 6.25 MG TABLET (FP) PO SCH (21:45)
[2024-08-23] MEDS: ROSUVASTATIN CA 5 MG TABLET PO SCH ×2 (21:45)
[2024-08-23] MEDS: BUDESONIDE/FORMETEROL FUMARATE 160/4.5 mcg INHALER IH SCH (21:48)
[2024-08-23] MEDS ORDERED: SENNOSIDES 8.6MG TABLET (FP) PO PRN (22:00)
[2024-08-24 07:57] LABS: ABSOLUTE IMMATURE GRANULOCYTES 0.03 x10^3/uL (0.0-0.031); BASOPHILS # 0.03 x10^3/uL (0.01-0.08); EOSINOPHIL % 1.3 % (0.8-7.0); EOSINOPHILS # 0.08 x10^3/uL (0.04-0.54); HEMATOCRIT 39.5 % (40.1-51.0); HEMOGLOBIN 11.4 g/dL (13.7-17.5); MCHC 28.9 g/dl (32.3-36.5); MEAN CELL VOLUME 92.9 fl (79.0-92.2); MEAN PLT VOLUME 9.9 fl (9.4-12.4); MONOCYTE # 0.62 x10^3/uL (0.30-0.82); MONOCYTE % 9.9 % (5.3-12.2); PLATELET COUNT 180 x10^3/uL (163-337); RDW 20.8 % (12.2-16.1)
[2024-08-24 08:07] LABS: POTASSIUM 4.6 mmol/L (3.5-5.1)
[2024-08-24 08:10] LABS: ALBUMIN 3.3 g/dl (3.4-5.0); BLOOD UREA NITROGEN 47.6 mg/dL (7-18); CALCIUM 9.5 mg/dL (8.5-10.1)
[2024-08-24 08:13] LABS: CREATININE 6.4 mg/dL (0.55-1.3)
[2024-08-24 08:15] LABS: BILIRUBIN,TOTAL 2.6 mg/dL (0.2-1); TOT PROT 6.5 g/dl (6.4-8.2)
[2024-08-24 13:27] LABS: HEPATITIS B SURF AG NON-MATERN NON-REACTIVE (NONREACTIVE)
[2024-08-24] MEDS: TAMSULOSIN HCL 0.4 MG CAP PO SCH (15:45)
[2024-08-25 07:07] LABS: ABSOLUTE IMMATURE GRANULOCYTES 0.04 x10^3/uL (0.0-0.031); BASOPHILS # 0.03 x10^3/uL (0.01-0.08); EOSINOPHIL % 1.4 % (0.8-7.0); HEMATOCRIT 39.3 % (40.1-51.0); HEMOGLOBIN 11.2 g/dL (13.7-17.5); MCHC 28.5 g/dl (32.3-36.5); MEAN CELL VOLUME 93.8 fl (79.0-92.2); MEAN PLT VOLUME 9.1 fl (9.4-12.4); MONOCYTE # 0.88 x10^3/uL (0.30-0.82); MONOCYTE % 12.2 % (5.3-12.2); PLATELET COUNT 154 x10^3/uL (163-337); RDW 21.1 % (12.2-16.1)
[2024-08-25 07:29] LABS: POTASSIUM 4.6 mmol/L (3.5-5.1)
[2024-08-25 07:35] LABS: ALBUMIN 3.2 g/dl (3.4-5.0); CALCIUM 8.6 mg/dL (8.5-10.1)
[2024-08-25 07:39] LABS: CREATININE 5.5 mg/dL (0.55-1.3)
[2024-08-25 07:40] LABS: BILIRUBIN,TOTAL 2.9 mg/dL (0.2-1); TOT PROT 6.2 g/dl (6.4-8.2)
[2024-08-25] MEDS: ONDANSETRON 4 MG/2 ML VIAL IVPUSH PRN (11:58)
[2024-08-25] MEDS: FLUTICASONE PROP 0.05% 16 GM NASAL SPRAY NS SCH (11:58)
[2024-08-25] MEDS: SODIUM CHLORIDE 0.45% 1,000 ML IV SCH (11:59)
[2024-08-25 14:51] VITALS: RESP 18
[2024-08-25 17:55] VITALS: BP 93/63; PULSE 83; TEMP 97.3
[2024-08-25 18:49] LABS: ARTERIAL BLD GAS O2 SATURATION 99.6 % (95-98); ARTERIAL BLOOD GAS BASE EXCESS -7.4 mmol/L (-2-2); ARTERIAL BLOOD GAS PO2 270.8 mmHg (80-100); ARTERIAL BLOOD GAS pH 7.309 (7.350-7.450); O2 CONTENT 1.96 % vol
[2024-08-25 19:04] LABS: ALLENS TEST POSITIVE
[2024-08-25] MEDS: methylPREDNISolone NA SUCC 40 MG/1 ML VIAL IVPUSH SCH (20:26)
[2024-08-25] MEDS: LORazepam 2 MG/ML SDV VIAL IVPUSH ONE (21:00)
[2024-08-25 21:07] LABS: POTASSIUM 5.1 mmol/L (3.5-5.1)
[2024-08-25 21:09] LABS: CALCIUM 9.3 mg/dL (8.5-10.1)
[2024-08-25 21:10] LABS: ALBUMIN 3.5 g/dl (3.4-5.0); BLOOD UREA NITROGEN 46.2 mg/dL (7-18)
[2024-08-25 21:12] LABS: LACTIC ACID 8.7 mmol/L (0.4-2.0)
[2024-08-25 21:13] LABS: CREATININE 6.5 mg/dL (0.55-1.3)
[2024-08-25 21:14] LABS: BILIRUBIN,TOTAL 4.2 mg/dL (0.2-1); TOT PROT 6.8 g/dl (6.4-8.2)
[2024-08-25] MEDS ORDERED: MUPIROCIN 2% TOPICAL OINTMENT FOR DECOLONIZATION NS SCH (22:00)
[2024-08-25] MEDS ORDERED: CHLORHEXIDINE GLUCONATE 4% CLEANSER FOR DECOLONIZATION TP SCH (22:00)
== END 2024-08-25 21:39 | disposition expired ==
LOC: JER 22:39 → INTOOBSV 08-23 03:12 → JERBED 08-23 03:12 → UNDOADMOB 08-23 03:12 → JERBED 08-23 03:50 → J4W 08-23 19:52 → JICU 08-25 21:00 → J4W 08-25 21:58 → JICU 08-25 21:58 → UNDODISOB 08-26 01:20
PROVIDERS: ADMIT Hospitalist; ATTEND Internal Medicine
PROC: 3E023GC Introduction of Other Therapeutic Substance into Muscle, Percutaneous Approach (ICD-10-PCS; principal; 2024-08-23)
PROC: 3E0333Z Introduction of Anti-inflammatory into Peripheral Vein, Percutaneous Approach (ICD-10-PCS; 2024-08-23)
PROC: 3E033GC Introduction of Other Therapeutic Substance into Peripheral Vein, Percutaneous Approach (ICD-10-PCS; 2024-08-23)
PROC: 3E033NZ Introduction of Analgesics, Hypnotics, Sedatives into Peripheral Vein, Percutaneous Approach (ICD-10-PCS; 2024-08-23)
PROC: 3E0337Z Introduction of Electrolytic and Water Balance Substance into Peripheral Vein, Percutaneous Approach (ICD-10-PCS; 2024-08-23)
DX: J96.21 Acute and chronic respiratory failure with hypoxia (principal); I50.30 Unspecified diastolic (congestive) heart failure; R94.5 Abnormal results of liver function studies; E87.70 Fluid overload, unspecified; J44.9 Chronic obstructive pulmonary disease, unspecified; I35.0 Nonrheumatic aortic (valve) stenosis; E87.20 Acidosis, unspecified; I13.2 Hypertensive heart and chronic kidney disease with heart failure and with stage 5 chronic kidney disease, or end stage renal disease; I95.9 Hypotension, unspecified; E11.22 Type 2 diabetes mellitus with diabetic chronic kidney disease; I89.0 Lymphedema, not elsewhere classified; N18.6 End stage renal disease; D64.9 Anemia, unspecified; Z99.2 Dependence on renal dialysis; E66.01 Morbid (severe) obesity due to excess calories; R42 Dizziness and giddiness
CPT/HCPCS: 0241U-QW; 36415; 36600; 70450-TC; 71045-TC-FY; 76705-TC; 80053; 82248; 82550; 82803; 82962; 83605; 83735; 83880; 84100; 84484; 85025; 85610; 85730; 86704; 86850; 86900; 86901; 87040; 87340; 87517; 93005; 93010; 94660; 96361; 96372; 96374; 96375; 97116-GP; 97161-GP; 99285-25; G0378